=== PATIENT | female | born 1965 | race Caucasian/White ===

== ENCOUNTER → 2017-06-18 | Emergency (ER) | payer MEDICARE, OTHER ==
[~2017-06-18] VITALS: Ht 162.6 cm; Wt 72.6 kg
[~2017-06-18] MED LIST: BACLOFEN20 MG PO; CIPRO500 MG PO; CYCLOBENZAPRINE10 MG PO; DIAZEPAM5 MG PO; FLOVENT HFA12 GM INH; GLUCOSAMINE CH1 EACH PO; KEFLEX500 MG PO; MACROBID 100 M100 MG PO; NORCO 5-325 TA1 EACH PO; OMEPRAZOLE20 MG PO; PROMETHAZINE HC25 M1 PO; RANITIDINE HCL150 MG PO; TIZANIDINE HCL4 M1 PO; TYLENOL325 MG PO; VENTOLIN HFA18 GM INH
== END ==
LOC: ED 16:20
DX: R07.81 Pleurodynia (principal); M62.830 Muscle spasm of back; M99.03 Segmental and somatic dysfunction of lumbar region; F17.200 Nicotine dependence, unspecified, uncomplicated; Z90.710 Acquired absence of both cervix and uterus; Z90.49 Acquired absence of other specified parts of digestive tract; Z88.6 Allergy status to analgesic agent; Z88.7 Allergy status to serum and vaccine; Z88.0 Allergy status to penicillin; Z88.5 Allergy status to narcotic agent; Z91.040 Latex allergy status
CPT/HCPCS: 99283

== ENCOUNTER 2017-07-06 08:58 | Emergency (ER) | payer MEDICARE, OTHER ==
[~2017-07-06] VITALS: Ht 162.6 cm; Wt 80.3 kg
[~2017-07-06 08:58] MED LIST changes: -FLOVENT HFA12 GM INH; -RANITIDINE HCL150 MG PO; -VENTOLIN HFA18 GM INH
[2017-07-06] MEDS ORDERED: VENTOLIN HFA18 GM INH (09:13)
[2017-07-06] MEDS ORDERED: FLOVENT HFA12 GM INH (09:13)
[2017-07-06] MEDS ORDERED: RANITIDINE HCL150 MG PO (09:14)
[2017-07-06] MEDS ORDERED: CYCLOBENZAPRINE10 MG PO (10:57)
== END 2017-07-06 11:18 | disposition home or self-care (01) ==
LOC: ED 08:58
DX: G89.29 Other chronic pain (principal); M54.6 Pain in thoracic spine; F17.200 Nicotine dependence, unspecified, uncomplicated; Z90.710 Acquired absence of both cervix and uterus; Z90.49 Acquired absence of other specified parts of digestive tract; Z88.0 Allergy status to penicillin; Z88.7 Allergy status to serum and vaccine; Z88.5 Allergy status to narcotic agent; Z91.040 Latex allergy status; Z79.51 Long term (current) use of inhaled steroids
CPT/HCPCS: 72070; 80053; 85025; 99283

== ENCOUNTER 2017-10-18 13:15 | Emergency (ER) | payer MEDICARE, OTHER ==
[~2017-10-18] VITALS: Ht 162.6 cm; Wt 79.4 kg
[~2017-10-18 13:15] MED LIST changes: +FLOVENT HFA12 GM INH; +RANITIDINE HCL150 MG PO; +VENTOLIN HFA18 GM INH
== END 2017-10-18 13:51 | disposition home or self-care (01) ==
LOC: ED 13:15
DX: Z76.0 Encounter for issue of repeat prescription (principal); J45.909 Unspecified asthma, uncomplicated; F17.200 Nicotine dependence, unspecified, uncomplicated; Z90.710 Acquired absence of both cervix and uterus; Z90.49 Acquired absence of other specified parts of digestive tract; Z88.6 Allergy status to analgesic agent; Z91.09 Other allergy status, other than to drugs and biological substances; Z88.7 Allergy status to serum and vaccine; Z88.0 Allergy status to penicillin; Z88.5 Allergy status to narcotic agent; Z91.040 Latex allergy status; Z79.899 Other long term (current) drug therapy
CPT/HCPCS: 99283

== ENCOUNTER 2017-12-12 09:15 | Emergency (ER) | payer MEDICARE, OTHER ==
[~2017-12-12] VITALS: Ht 162.6 cm; Wt 77.1 kg
[2017-12-12] MEDS ORDERED: PROMETHAZINE HC25 M1 PO (11:23)
[2017-12-12] MEDS ORDERED: NORCO 5-325 TA1 EACH PO (11:23)
[2017-12-12] MEDS ORDERED: CIPRO500 MG PO (11:38)
== END 2017-12-12 11:40 | disposition home or self-care (01) ==
LOC: ED 09:15
DX: N39.0 Urinary tract infection, site not specified (principal); F17.200 Nicotine dependence, unspecified, uncomplicated; Z88.6 Allergy status to analgesic agent; Z88.8 Allergy status to other drugs, medicaments and biological substances; Z88.7 Allergy status to serum and vaccine; Z88.0 Allergy status to penicillin; Z91.040 Latex allergy status; Z88.5 Allergy status to narcotic agent
CPT/HCPCS: 80053; 81001; 85025; 87077; 87088; 87181; 87184; 96361; 96374; 96375; 99283; J1170; J2550; J7120

== ENCOUNTER 2018-03-04 12:58 | Emergency (ER) | payer MEDICARE, OTHER ==
[~2018-03-04] VITALS: Ht 162.6 cm; Wt 77.1 kg
[2018-03-04] MEDS ORDERED: BACTRIM DS TAB1 EACH PO (14:35)
--- NOTE | 2018-03-05 16:00 | EKG ---
[facility] [address] [facility] [place], [place] [address] Signed Sinus tachycardia Otherwise normal ECG No previous ECGs available Confirmed by OTONIEL CHAWLA MD ([id number]) on 03/05/2018 4:00:15 PM Electronically Signed By: OTONIEL CHAWLA MD 03/05/18 1600 PATIENT NAME: MATI SALGUERO Electrocardiogram DATE OF : 67 PHYSICIAN: OTONIEL CHAWLA MD REPORT #: [id number] REPORT IS CONFIDENTIAL AND NOT TO BE RELEASED WITHOUT AUTHORIZATION
== END 2018-03-04 14:43 | disposition home or self-care (01) ==
LOC: ED 12:58
DX: N39.0 Urinary tract infection, site not specified (principal); J45.909 Unspecified asthma, uncomplicated; F17.200 Nicotine dependence, unspecified, uncomplicated; Z88.6 Allergy status to analgesic agent; Z91.09 Other allergy status, other than to drugs and biological substances; Z88.7 Allergy status to serum and vaccine; Z88.0 Allergy status to penicillin; Z88.5 Allergy status to narcotic agent; Z91.040 Latex allergy status; Z79.899 Other long term (current) drug therapy; Z79.51 Long term (current) use of inhaled steroids
CPT/HCPCS: 80053; 81001; 84484; 85025; 87088; 93005; 93010; 96360; 99283; J7030

== ENCOUNTER 2018-05-07 04:20 | Emergency (ER) | payer MEDICARE, OTHER ==
[~2018-05-07] VITALS: Ht 162.6 cm; Wt 77.1 kg
[~2018-05-07 04:20] MED LIST changes: +BACTRIM DS TAB1 EACH PO
== END 2018-05-07 04:55 | disposition home or self-care (01) ==
LOC: ED 04:20
PROC: 0T9B70Z Drainage of Bladder with Drainage Device, Via Natural or Artificial Opening (ICD-10-PCS; principal; 2018-05-07)
DX: T83.091A Other mechanical complication of indwelling urethral catheter, initial encounter (principal); Z88.6 Allergy status to analgesic agent; Z88.8 Allergy status to other drugs, medicaments and biological substances; Z88.0 Allergy status to penicillin; Z91.040 Latex allergy status; Z88.7 Allergy status to serum and vaccine; Z79.899 Other long term (current) drug therapy; Z90.5 Acquired absence of kidney; Z93.6 Other artificial openings of urinary tract status
CPT/HCPCS: 51701; 99283

== ENCOUNTER 2019-01-09 15:29 | Emergency (ER) | payer MEDICARE, OTHER ==
[~2019-01-09] VITALS: Ht 162.6 cm; Wt 77.1 kg
--- OUTSIDE RECORDS SUMMARY | ~2019-01-09 | XMS | Clinical Summary ---
Demographics + + + | Address | [address] | | | [address] | | | [place] [address] | + + + | Home Phone | | + + + | Preferred Language | Unknown | + + + | Marital Status | | + + + | Yarsanism Affiliation | Unknown | + + + | Race | Unknown | + + + | Ethnic Group | Unknown | + + + Author + + + | Author | [email or web address] | + + + | Organization | [facility] [employer] [facility] | + + + | Address | Unknown | + + + | Phone | Unavailable | + + + Support + + +---------+ + | Name | Relationship | Address | Phone | + + +---------+ + | Kathrine Salazar | ECON | Unknown | | + + +---------+ + Care Team Providers + +------+ + | Care Machine Shop Repair Technician Name | Role | Phone [...]
--- OUTSIDE RECORDS SUMMARY | ~2019-01-09 | XMS | Clinical Summary ---
Demographics + + + | Address | [address] | | | [place] [address] | + + + | Home Phone | | + + + | Preferred Language | Unknown | + + + | Marital Status | | + + + | Latter-Day Affiliation | Unknown | + + + | Race | Unknown | + + + | Ethnic Group | Unknown | + + + Author + + + | Author | [facility] | | | and [place] | + + + | Organization | [facility] | | | and [...] #3 | | | | | , [address] | | + + + + + Care Team Providers + +------+ + | Care Clock And Watch Hands Dipper Name | Role | Phone | + +------+ + | Francine Sanford LEAD SOLUTIONS ARCHITECT | PP | | + +------+ + [...] | + + + + + + Current Medications + + +---------+---------+------+------+-------+ | Prescription | Sig. | Disp. | Refills | Star | End | Statu | | | | | | t | Date | s | | | | | | Date | | | + + +---------+---------+------+------+-------+ | raNITIdine | Take 150 mg by mouth | | | | | Activ | | (ZANTAC) 150 MG | nightly. | | | | | e | | capsule | | | | | | | + + +---------+---------+------+------+-------+ | fluticasone | Inhale 2 puffs into | | | | | Activ | | (FLOVENT HFA) 44 | the lungs 2 times | | | | | e | | mcg/puff inhaler | daily. | | | | | | + + +---------+---------+------+------+-------+ | diphenhydrAMINE | Take 1 pill 1 hour | 1 | 2 | 04/2 | | Activ | | (BENADRYL) 25 MG | before CT scan | capsule | | 0/20 | | e | | capsule | | | | 18 | | | + + +---------+---------+------+------+-------+ | albuterol | Inhale 2 puffs into | | | | | Activ | | (VENTOLIN HFA) 90 | the lungs every 6 | | | | | e | | mcg/puff inhaler | hours as needed for | | | | | | | | Wheezing. | | | | | | + + +---------+---------+------+------+-------+ | Incontinence | 14 welsh urinary | 210 | 11 | 07/1 [...] | | | | | + + +---------+---------+------+------+-------+ Active Problems + + + | Problem [...] on file | | + + + Last Filed Vital Signs + [...] + | Respiratory Rate | 18 | 05/18/20181011 PDT | + + + + | Oxygen Saturation | 91% | 04/14/20180 PDT | + + + + | Inhaled Oxygen | - | - | | Concentration | | | + + + + | Weight | 80.7 kg (177 lb 14.6 | 05/18/20181011 PDT | | | oz) | | + + + + | Height | 162.6 cm (5' 4.02") | 05/18/20181011 PDT | + + + + | Body Mass Index | 30.52 | 05/18/2018 1012 PDT | + + + + Plan [...] | + + + + + | BREAST CANCER | | | | | SCREENING (MAMM Q2 | 6 | | | | YEARS 50-74) | | | | + + [...] | | | | | (#1) | 8 | | | + + + + + Results Not on filefrom Last 3 Months Insurance + +--------+ +--------+ +---------+ | Payer | Benefi | Subscriber | Type | Phone | Address | | | t Plan | ID | | | | | | / | | | | | | | Group | | | | | + +--------+ +--------+ +---------+ | MEDICARE | MEDICA | [id number] | Medica | [phone] | | | RE | | re | [phone] | | | | PART A | | | | | | | AND B | | | | | + +--------+ +--------+ +---------+ | MODA [employer] PLAN | MODA | [id number] | Medica | [phone] | | | MEDICAID HMO | HEALTH | | id | [id number] | | | | MDCD | | | | | | | HMO [place] | | | | | + +--------+ +--------+ +---------+ + +--------+ +--------+ + + | Guarantor Name | Accoun | Relation to | Date | Phone | Billing Address | | | t Type | Patient | of | | | | | | | | | | + +--------+ +--------+ + + | MATI SALGUERO | Person | Self [birth year] Home: | [address] | | [place] | al/Fam | | 1965 | [phone] | [address] | | | [place] | | | [phone] | [place] | | | | | | | [address] | + +--------+ +--------+ + +
--- OUTSIDE RECORDS SUMMARY | ~2019-01-09 | XMS | Clinical Summary ---
Demographics + + + | Address | [address] | | | [place] [address] | + + + | Home Phone | | + + + | Preferred Language | Unknown | + + + | Marital Status | | + + + | Baptist Affiliation | Unknown | + + + | Race | Unknown | + + + | Ethnic Group | Unknown | + + + Author + + + | Author | [facility] | | | and [place] | + + + | Organization | [facility] | | | and [...] #3 | | | | | , [address] | | + + + + + Care Team Providers + +------+ + | Care Dye Expert Name | Role | Phone | + +------+ + | Francine Sanford METAL DOOR ASSEMBLER | PP | | + +------+ + [...] + + +---------+---------+------+------+-------+ | Incontinence | 14 maltese urinary | [...] +--------+ +---------+ | MEDICARE | MEDICA | [id number] | Medica | [phone] | | | | RE | | re | [phone] | | | | PART A | | | | | | | AND B | | | | | + +--------+ +--------+ +---------+ | MODA HE[employer] PLAN | MODA | [id number] | Medica | [phone] | | | [...] | | | | | | | [address] | + +--------+ +--------+ + +
--- OUTSIDE RECORDS SUMMARY | ~2019-01-09 | XMS | Clinical Summary ---
Demographics + + + | Address | [address] | | | [address] | | | [place] [address] | + + + | Home Phone | | + + + | Preferred Language | Unknown | + + + | Marital Status | | + + + | Yarsanism Affiliation | Unknown | + + + | Race | Unknown | + + + | Ethnic Group | Unknown | + + + Author + + + | Author | [facility] | + + + | Organization | [facility] [facility] | + + + | Address | Unknown | + + + | Phone | Unavailable | + + + Support + + +---------+ + | Name | Relationship | Address | Phone | + + +---------+ + | Kathrine Salazar | ECON | Unknown | | + + +---------+ + Care Team Providers + +------+ + | Care Landfill Gas Collection System Operator Name | Role | Phone | [...]
[2019-01-09] MEDS ORDERED: PROMETHAZINE HC25 M1 PO (19:20)
== END 2019-01-09 19:33 | disposition home or self-care (01) ==
LOC: ED 15:29
DX: R10.9 Unspecified abdominal pain (principal); R11.10 Vomiting, unspecified; R10.812 Left upper quadrant abdominal tenderness; R10.811 Right upper quadrant abdominal tenderness; R19.7 Diarrhea, unspecified; J45.909 Unspecified asthma, uncomplicated; Z87.891 Personal history of nicotine dependence; Z90.710 Acquired absence of both cervix and uterus; Z88.6 Allergy status to analgesic agent; Z91.048 Other nonmedicinal substance allergy status; Z91.040 Latex allergy status; Z88.0 Allergy status to penicillin; Z88.5 Allergy status to narcotic agent; Z79.899 Other long term (current) drug therapy
CPT/HCPCS: 74176; 80053; 81001; 83605; 85025; 96361; 96374; 96375; 99284-25; J2270; J2550; J7030

== ENCOUNTER 2019-03-29 21:03 | Inpatient (IN) | payer MEDICARE, OTHER ==
[~2019-03-29] VITALS: Ht 162.6 cm; Wt 86.9 kg
--- OUTSIDE RECORDS SUMMARY | ~2019-03-29 | XMS | Clinical Summary ---
Demographics + + + | Address | [address] | | | [address] | | | [place] [address] | + + + | Home Phone | | + + + | Preferred Language | Unknown | + + + | Marital Status | | + + + | Episcopalian Affiliation | Unknown | + + + | Race | Unknown | + + + | Ethnic Group | Unknown | + + + Author + + + | Author | [facility] | + + + | Organization | [facility] | + + + | Address | Unknown | + + + | Phone | Unavailable | + + + Support + + +---------+ + | Name | Relationship | Address | Phone | + + +---------+ + | Kathrine Salazar | ECON | Unknown | | + + +---------+ + Care Team Providers + +------+ + | Care Courier Name | Role | Phone | + +------+ + PP | Unavailable | + +------+ + Allergies Not on File Current Medications Not on file Active Problems Not on file Social History + +-------+ +--------+------+ | Tobacco [...] on file | | + + + Plan of Treatment Not on file Results Not on filefrom Last 3 Months"
--- OUTSIDE RECORDS SUMMARY | ~2019-03-29 | XMS | Clinical Summary ---
Demographics + + + | Address | [address] | | | [address] | | | [place] [address] | + + + | Home Phone | | + + + | Preferred Language | Unknown | + + + | Marital Status | | + + + | Caodaism Affiliation | Unknown | + + + | Race | Unknown | + + + | Ethnic Group | Unknown | + + + Author + + + | Author | [facility] [employer] [facility] | + + + | Organization | [facility] [employer] [facility] | + + + | Address | Unknown | + + + | Phone | Unavailable | + + + Support + + +---------+ + | Name | Relationship | Address | Phone | + + +---------+ + | Kathrine Salazar | ECON | Unknown | | + + +---------+ + Care Team Providers + +------+ + | Care Inspector Final Assembly Conveyor Line Name | Role | Phone | + [...]
--- OUTSIDE RECORDS SUMMARY | ~2019-03-29 | XMS | Clinical Summary ---
Demographics + + + | Address | [address] | | | [place] [address] | + + + | Home Phone | | + + + | Preferred Language | Unknown | + + + | Marital Status | | + + + | Mormon Affiliation | Unknown | + + + | Race | Unknown | + + + | Ethnic Group | Unknown | + + + Author + + + | Author | [facility] | | | and [place] | + + + | Organization | [facility] | | | and [place] | + + + | Address | Unknown | + + + | Phone | Unavailable | + + + Support + + + + + | Name | Relationship | Address | Phone | + + + + + | Darisu Fields | ECON | [address] | | | | | , [address] | | + + + + + Care Team Providers + +------+ + | Care Overhauler Bus Truck Name | Role | Phone | + +------+ + | Francine Sanford RECONCILIATION SPECIALIST | PP | | + +------+ + Allergies + + + + + + | Active Allergy | Reactions | Severity | Noted | Comments | | | | | Date | | + + + + + + | Codeine Sulfate | Itching, Nausea And | Medium | | | | | Vomiting | | | | + + + + + + | Iodinated Diagnostic | Itching | Medium | 05/01/20 | IV Contrast | | Agents | | | 10 | | + + + + + + | Latex | Rash | Low | 05/01/20 | | | | | | 10 | | + + + + + + | Nsaids | Nausea And Vomiting | Medium | 05/01/20 | | | | | | 10 | | + + + + + + | Penicillins | Nausea And Vomiting | Medium | | | + + + + + + Medications + + + +---------+------+------+-------+ | Medication | Sig | Dispensed | Refills | Star | End | Statu | | | | | | t | Date | s | | | | | | Date | | | + + + +---------+------+------+-------+ | raNITIdine | Take 150 mg by mouth | | 0 | | | Activ | | (ZANTAC) 150 MG | nightly. | | | | | e | | capsule | | | | | | | + + + +---------+------+------+-------+ | fluticasone | Inhale 2 puffs into | | 0 | | | Activ | | (FLOVENT HFA) 44 | the lungs 2 times | | | | | e | | mcg/puff inhaler | daily. | | | | | | + + + +---------+------+------+-------+ | diphenhydrAMINE | Take 1 pill 1 hour | 1 | 2 | 04/2 | | Activ | | (BENADRYL) 25 MG | before CT scan | capsule | | 0/20 | | e | | capsule | | | | 18 | | | + + + +---------+------+------+-------+ | albuterol | Inhale 2 puffs into | | 0 | | | Activ | | (VENTOLIN HFA) 90 | the lungs every 6 | | | | | e | | mcg/puff inhaler | hours as needed for | | | | | | | | Wheezing. | | | | | | + + + +---------+------+------+-------+ | Incontinence | 14 mauritian urinary | 210 | 11 | 07/1 | | Activ | | Supplies | catheters. | each | | 2/20 | | e | | MISCIndications: | Catheterize 7 times | | | 18 | | | | Bladder extrophy | daily. Length of | | | | | | | | need: Lifetime. | | | | | | | | Diagnosis: Bladder | | | | | | | | extrophy Q64.10. 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 | + + + | URINARY TRACT INFECTION | | + + + | FIBROMYALGIA | | + + + | HYPERTENSION | | + + + | CHRONIC RIGHT HYDRONEPHROSIS | | + + + | CHRONIC MALFUNCTION OF THE RIGHT KIDNEY | | + + + + + | Overview: ICD-10 Record update | + + + +---+ | POSSIBLE LEFT RENAL CALCULUS | | + +---+ | RIGHT BACK PAIN, CHRONIC | | + +---+ Family History + + +------+ + | Medical History | Relation | Name | Comments | + + +------+ + | Heart disease | Maternal | | | | | Grandfath | | | | | er | | | + + +------+ + | Prostate cancer | Maternal | | | | | Grandfath | | | | | er | | | + + +------+ + | Cancer | Maternal | | | | | Grandmoth | | | | | er | | | + + +------+ + | Fibromyalgia | Mother | | | + + +------+ + | Heart disease | Mother | | | + + +------+ + + +------+ + + | Relation | Name | Status | Comments | + +------+ + + | Father | | Alive | | + +------+ + + | Maternal Grandfather | | | | + +------+ + + | Maternal Grandmother | | | | + +------+ + + | Mother | | | | + +------+ + + Social History + + + [...] + +---------+ + | Alcohol Use | Drinks/We | oz/Week | Comments | | | ek | | | + + +---------+ + | No [...] Filed Vital Signs + + + + | Vital Sign | Reading | Time Taken | + + + + | Blood Pressure | 128/80 | 05/18/20182 PDT | + + + + | Pulse | 104 | 05/18/2018 1012 PDT | + + + + | Temperature | 36.4 C (97.5 F) | 04/14/2018 0835 PDT | + + + + | Respiratory Rate | 18 | 05/18/20182 PDT | + + + + | Oxygen Saturation | 91% | 04/14/2018 1010 PDT | + + + + | Inhaled Oxygen | - | - | | Concentration | | | + + + + | Weight | 80.7 kg (177 lb 14.6 | 05/18/20181011 PDT | | | oz) | | + + + + | Height | 162.6 cm (5' 4.02") | 05/18/20182 PDT | + + + + | Body Mass Index | 30.52 | 05/18/20182 PDT | + + + + Plan of Treatment + + + + + | Health Maintenance | Due Date | Last Done | Comments | + + + + + | Vaccine: | | | | | Dtap/Tdap/Td (1 - | 5 | | | | Tdap) | | | | + + + + + | Cervical Cancer | | | | | Screening (Pap) | 6 | | | + + + + + | Adult Annual | | | | | Wellness Visit | 5 | | | + + + + + | Breast Cancer | | | | | Screening (Ages | 6 | | | | 50-74) | | | | + + + + + | Colorectal Cancer | | | | | Screening | 6 | | | | (Colonoscopy) | | | | + + + + + | Vaccine: Zoster (1 | | | | | of 2) | 6 | | | + + + + + | Vaccine: Influenza | | | | | (Season Ended) | 9 | | | + + + + + Results Not on filefrom Last 3 Months Insurance + +--------+ +--------+ +---------+--------+ | Payer | Benefi | Subscriber | Effect | Phone | Address | Type | | | t Plan | ID | blaise | | | | | | / | | Dates | | | | | | Group | | | | | | + +--------+ +--------+ +---------+--------+ | MEDICARE | MEDICA | [id number] | | [phone] | | Medica | | | RE | | 010-Pr | 5 | | re | | | PART A | | esent | | | | | | AND B | | | | | | + +--------+ +--------+ +---------+--------+ | MODA [employer] PLAN | MODA | [id number] | | [phone] | | Medica | | MEDICAID HMO | HEALTH | | 018-Pr | 1 | | id | | | MDCD | | esent | | | | | | HMO OR | | | | | | + +--------+ +--------+ +---------+--------+ + +--------+ +--------+ + + | Guarantor Name | Accoun | Relation to | Date | Phone | Billing Address | | | t Type | Patient | of | | | | | | | | | | + +--------+ +--------+ + + | Samreen Zaragoza | Person | Self | [birth year] | [address] | | [place] | al/Fam | | 1965 | [phone] | [address] | | | [place] | | | [address] (Home) | [place] | | | | | | | [address] | + +--------+ +--------+ + + Advance Directives Patient has advance care planning documents, and code status on file. For more information, please contact:[facility] [place] [address] + + + + + | Code Status | Date | Date | Comments | | | Activated | Inactivated | | + + + + + | Full Code | 04/09/2018 | 04/14/2018 | | | | 16:36 | 14:35 | | + + + + +
--- OUTSIDE RECORDS SUMMARY | ~2019-03-29 | XMS | Clinical Summary ---
Demographics + + + | Address | [address] | | | [place] [address] | + + + | Home Phone | | + + + | Preferred Language | Unknown | + + + | Marital Status | | + + + | Sabianism Affiliation | Unknown | + + + | Race | Unknown | + + + | Ethnic Group | Unknown | + + + Author + + + | Author | [facility] | | | and [place] | + + + | Organization | [facility] | | | and [place] | + + + | Address | Unknown | + + + | Phone | Unavailable | + + + Support + + + + + | Name | Relationship | Address | Phone | + + + + + | Darius Fields | ECON | [address] | | | | | , [address] | | + + + + + Care Team Providers + +------+ + | Care Seed Production Field Supervisor Name | Role | Phone | + +------+ + | Francine Sanford AUDIO PRODUCTION ENGINEER | PP | | + +------+ + [...] + + +---------+------+------+-------+ | Incontinence | 14 cymraes urinary | 210 | 11 | 07/1 [...] +--------+ +---------+--------+ | MEDICARE | MEDICA | [id number] | | [phone] | | Medica | | | RE | | 010-Pr | 5 | | re | | | PART A | | esent | | | | | | AND B | | | | | | + +--------+ +--------+ +---------+--------+ | MODA [employer] PLAN | MODA | [id number] | | [phone] | | Medica | [...] | | | 9 (Home) | [place] | | | | | | | [address] | + +--------+ +--------+ + + Advance Directives Patient has advance care planning documents, and code status on file. For more information, please contact:[facility] [place] [address] + + + + + | Code Status | Date | Date | Comments | | | Activated | Inactivated | | + + + + + | Full Code | 04/09/2018 | 04/14/2018 | | | | 16:36 | 14:35 | | + + + + +
--- OUTSIDE RECORDS SUMMARY | ~2019-03-29 | XMS | Clinical Summary ---
Demographics + + + | Address | [address] | | | [address] | | | [place] [address] | + + + | Home Phone | | + + + | Preferred Language | Unknown | + + + | Marital Status | | + + + | Scientologist Affiliation | Unknown | + + + | Race | Unknown | + + + | Ethnic Group | Unknown | + + + Author + + + | Author | [facility] | + + + | Organization | [facility] [employer] [facility] | + + + | Address | Unknown | + + + | Phone | Unavailable | + + + Support + + +---------+ + | Name | Relationship | Address | Phone | + + +---------+ + | Kathrine Slaazar | ECON | Unknown | | + + +---------+ + Care Team Providers + +------+ + | Care Trench Digger Helper Name | Role | Phone | [...]
--- OUTSIDE RECORDS SUMMARY | ~2019-03-29 | XMS | Clinical Summary ---
Demographics + + + | Address | [address] | | | [place] [address] | + + + | Home Phone | | + + + | Preferred Language | Unknown | + + + | Marital Status | | + + + | Congregation Affiliation | Unknown | + + + | Race | Unknown | + + + | Ethnic Group | Unknown | + + + Author + + + | Author | [facility] | | | and [place] | + + + | Organization | [facility] | | | and [place] | + + + | Address | Unknown | + + + | Phone | Unavailable | + + + Support + + + + + | Name | Relationship | Address | Phone | + + + + + | Darius Fields | ECON | [address] | | | | | , [address] | | + + + + + Care Team Providers + +------+ + | Care Skein Dyer Name | Role | Phone | + +------+ + | Francine Sanford PHP ENGINEER | PP | | + +------+ [...] + + +---------+------+------+-------+ | Incontinence | 14 martiniquais urinary | 210 | 11 | 07/1 [...] +--------+ +---------+--------+ | MEDICARE | MEDICA | [id number] | | [phone] | | Medica | | | RE | | 010-Pr | 5 | | re | | | PART A | | esent | | | | | | AND B | | | | | | + +--------+ +--------+ +---------+--------+ | [employer]AN | MODA | [id number] | | [phone] | | Medica | [...] | | | | | | | [address] | + +--------+ +--------+ + + Advance Directives Patient has advance care planning documents, and code status on file. For more information, please contact:[facility] [place] [address] + + + + + | Code Status | Date | Date | Comments | | | Activated | Inactivated | | + + + + + | Full Code | 04/09/2018 | 04/14/2018 | | | | 16:36 | 14:35 | | + + + + +
[2019-03-29] MEDS ORDERED: DILT-XR120 MG PO (21:21)
--- NOTE | 2019-03-30 02:25 | NUR ---
PATIENT ARRIVED TO THE FLOOR VIA STRETCHER. PATIENT WAS ABLE TO AMBULATE WITH NO ASSISTANCE OFF OF THE STRETCHER TO THE RESTROOM. PATIENT WAS ABLE TO SELF CATH AND VOID FROM UROSTOMY. PATIENT HAD X2 EPISODES OF VOMITING INTO TOILET THAT WHERE UNMEASURED. PATIENT IS NOW IN BED RESTING. NG TUBE PLACED WITH NO ISSUES IN LEFT SAMUEL. PATIENT TOLERATED NG PLACEMENT WELL. NG IS NOT HOOKED UP AT THIS TIME PENDING X-RAY. IMAGING IN ROOM COMPLETING X-RAY. PATIENT OREINTED TO FLOOR, ROOM, AND CALL LIGHT. PATIENT DENIES ANY FURTHER NEEDS. CALL LIGHT IN REACH.
--- NOTE | 2019-03-30 02:51 | NUR ---
NG PLACEMENT COMFORMED BY RADIOLOGIST. PATIENTS PLACED ON LWIS. PATIENT IS RESTING IN BED WITH EYES CLOSED, RR 17. CALL LIGHT IN REACH.
--- NOTE | 2019-03-30 04:00 | NUR ---
PATIENT IS RESTING IN BED WITH EYES CLOSED, RR 17. NG REMAINS ON LWIS. CALL LIGHT IN REACH.
--- NOTE | 2019-03-30 05:13 | NUR ---
PATIENT RESTED WELL AFTER ARRIVING TO THE FLOOR. PATIENT IS NPO AT THIS TIME. PATIENT HAS NG PLACED INTO LEFT SAMUEL AND IS ON LWIS. PATIENT IS A SBA. PATIENT HAS UROSTOOMY AND SELF CATHS PRN FROM UROSTOMY. PATIENT HAS IV FLUIDS INFUSING. PATIETN IS AAOX3. PATIENT HAS LATEX ALLERGIES.
--- NOTE | 2019-03-30 05:31 | NUR ---
PATIENTS VITALS TAKEN AND RECORDED. PATIENTS INTAKE AND OUPUT RECORDED. MORNING MEDICATION GIVEN PER ORDER. PATIENTS NG REMAINS PATENT AND CONNECTED TO LWIS. PATIENTS IV INFUSING PER ORDER. PATIENT DENIES ANY PAIN OR NAUSEA. NO NEEDS NOTED. CALL LIGHT IN REACH.
--- NOTE | 2019-03-30 06:16 | NUR ---
PATIENT PROVIDED WITH SUPPLIES TO SELF CATH. PATIENT WAS ABLE TO CATH WITH NO ISSUES. PATIENT WAS ABLE TO AMBULATE WITH NO ASSISTANCE. PATIENT IS BACK IN BED RESTING. IV INFUSING PER ORDER. NG TO LWIS. PATIENT RATES PAIN AT A 9/10. PATIENT GIVEN PRN PAIN MEDICATION PER ORDER. PATIENT DENIES ANY NAUSEA AT THIS TIME. NO FURTHER NEEDS NOTED. CALL LIGHT IN REACH.
--- NOTE | 2019-03-30 07:04 | NUR ---
RECIEVED BEDSIDE REPORT FROM OLIVIA GIMENEZ. PT IN BED, NGT TO LIWS. PERSONAL SUPPLIES AND CALL LIGHT IN REACH. NO C/O NAUSEA.
--- NOTE | 2019-03-30 09:56 | NUR ---
PATIENT AMBULATED IN HALLWAY 1 LAP EARLIER. PATIENT NOW IN BED RESTING WITH EYES CLOSED. PATIENT DID NOT WANT TO TAKE SHOWER, BATH WIPES GIVEN. CALL LIGHT IN REACH. NO FURTHER NEEDS AT THIS TIME.
--- NOTE | 2019-03-30 10:17 | NUR ---
PT C/O 10/10 ABDOMINAL PAIN, GAVE DILAUDID 0.6 MG IV PRN. ALSO C/O NAUSEA, GAVE PHENERGAN 12.5 MG IV PRN. NO EMESIS. NGT PUTTING OUT VERY SCANT AMOUNT.
--- NOTE | 2019-03-30 10:29 | NUR ---
ATTEMPTED TO AIR BOLUS THROUGH NGT, BOLUSED 15 ML, BUT THEN UNABLE TO PULL BACK ANYTHING. BOLUSED 5 ML WATER, UNABLE TO PULL BACK ANYTHING. PULLED NGT OUT BY APROXIMATELY 2.5 INCHES. NGT NOW DRAINING WELL, NO ISSUE PULLING BACK WITH SYRINGE.
--- NOTE | 2019-03-30 11:37 | NUR ---
PT IN BED, REPORTS PAIN LEVEL IS DOWN TO 3/10, TOLERABLE. ALEXANDR Smith, DRY SANDER IN SPEAKING WITH PT.
--- NOTE | 2019-03-30 11:53 | NUR ---
PT AMBULATED IN HALLS, AROUND LARGE LOOP X 1, TOLERATED WELL. PT THEN BACK TO BED. SCDs APPLIED, INSENTIVE SPIROMETER GIVEN TO PT. PROVIDED EDCUATION REGARDING INSENTIVE SPIROMETER USE, PT VERBALIZED UNDERSTANDING. GAVE PT VTE PREVENTION EDUCATON, EDUCATION REGARDING SCDs, PT VERBALIZED UNDERSTANDING. PERSONAL SUPPLIES AND CALL LIGHT IN REACH. PT'S NGT TO LOW INTERMITANT WALL SUCTION. PT DENIED NAUSEA.
--- NOTE | 2019-03-30 12:55 | NUR ---
PT SLEEPING SOUNDLY, AROUSED TO VERBAL STIMULI. ORDERED DILTIAZEM GIVEN. PT DENIED NAUSEA, DENIED PAIN. PERSONAL SUPPLIES AND CALL LIGHT IN REACH.
--- NOTE | 2019-03-30 13:53 | NUR ---
PT AMBULATED IN BERMEO AROUND LARGE LOOP X 1. TOLERATED WELL. IS NOW SITTING UP IN RECLINER. NGT TO LIWS, MODERATE AMOUNT CHUNCKY BROWN DRAINAGE COMING OUT INTO COLLECTION CONTAINER. PERSONAL SUPPLIES AND CALL LIGHT IN REACH. DENIES NAUSEA. WARM BLANKET PROVIDED.
--- NOTE | 2019-03-30 14:02 | NUR ---
PATIENT SITTING IN CHAIR WATCHING TV. CALL LIGHT IN REACH. NO FURTHER NEEDS AT THIS TIME.
--- NOTE | 2019-03-30 14:34 | CONS ---
[facility] [address], [place] [address] Signed DATE OF CONSULTATION: 03/30/2019 CHIEF COMPLAINT: Left-sided abdominal pain. HISTORY OF PRESENT ILLNESS: Mati is a 54-year-old female who was born with exstrophy of the bladder. She required three surgeries by the age of 4 on her bladder and her kidneys. In the end, she had an open cholecystectomy in 2010 up in [place], [place]. Then in 2017, they used the same incision to do an open right nephrectomy. She had her continent urostomy reconstructed in 2004 at [facility]. She has to self cath the urostomy. There was also some mention about hysterectomy. She said the bladder is long gone at this point. She has intermittent left-sided abdominal pain. Finally last night, it was so bad, she could hardly set up in bed. She finally made it into the emergency room. A CT scan showed some mildly dilated loops of small bowel on the left side of the abdomen about 33 mm. There is a question whether or not there is a transition point distally. She was also found to have colonization of her urine. The ER doctor wanted to give her some Levaquin and Flagyl. I was asked to admit her as a general surgeon on-call. An NG tube was placed and she does have bilious gastric fluid, which is moderately turbid as well. Overall, she says she feels better and the crampy pain seems to have improved. She said she had quite a bit of gas yesterday, but none this morning. PAST MEDICAL HISTORY: Exstrophy of the bladder, left, and asthma, obesity, hypertension, acid reflux. PAST SURGICAL HISTORY: Hysterectomy, continent urostomy, three bladder and kidney surgeries by age 4, right great toe surgery and open cholecystectomy in 2010, [place], [place], an open right nephrectomy in 2017, [place], [place], to her right subcostal incision, and reconstruction of her urostomy in 2004 at [facility] [place]. SOCIAL HISTORY: She quit smoking, but she likes little marijuana. She does not drink. Her brother is Darius Fields. Her female health nurse practitioner is Francine Culver, and they prefer [facility]. She is on disability. FAMILY HISTORY: Maternal grandfather and dad had heart disease and she thinks her mom had a weak heart and not sure why. REVIEW OF SYSTEMS: She had 10 systems reviewed and we were able to gather some of the details for the above Electronically Signed By: MAGEN ZEPEDA MD 03/30/19 1434 PATIENT NAME: MATI SALGUERO CONSULTATION DATE OF : 67 REPORT #: [id number] PHYSICIAN: MAGEN ZEPEDA MD PCP: FRANCINE CULVER REPORT IS CONFIDENTIAL AND NOT TO BE RELEASED WITHOUT AUTHORIZATION [address] [address] Signed history. ALLERGIES: NSAIDs, penicillin, iodine, codeine, influenza, and latex. MEDICATIONS: Flovent, albuterol, Zantac, and diltiazem. PHYSICAL EXAMINATION: VITAL SIGNS: Blood pressure is 155/77, heart rate 117, respiratory rate 18, temperature is 97.8. She is 93% on room air. She is 5 feet 4 inches and 90 kg. GENERAL: Mati is a 54-year-old female, sitting on the edge of her bed with her Holliday stand. I believe it is her brother that is in the room with her. She does not appear systemically ill or toxic. The NG tube is in place. Our nurses had pulled back a couple inches and gotten out quite a bit of bilious turbid fluid. It is probably a liter, maybe little more. She looks older than her stated age. LUNGS: Generally clear to auscultation bilaterally. HEART: Tachycardic without murmur. ABDOMEN: Obese but soft. She has multiple surgical scars including scars from her retention sutures. Her current urostomy is just to the right of the midline about the mid abdomen. No local signs or symptoms of infection. ABDOMEN: Generally soft and nontender. Certainly, no peritonitis. LABORATORY DATA: Her white blood cell count 11.9, hemoglobin 15, neutrophils 72, BUN 17, creatinine 0.9. Liver function tests are negative. Albumin is 4.1. The urine sample from the urostomy showed some bacteria, which is common. RADIOGRAPHIC STUDIES: CT scan of the abdomen and pelvis is reviewed. She does have some prominent small bowel loops in the left side about 33 mm in diameter. There may be a transition point distally. ASSESSMENT AND PLAN: Mati is a 54-year-old lady who presents with multiple previous abdominal surgeries as described above. She likely has a small bowel obstruction in the left side of her abdomen. At this point, she is admitted on IV fluids and on an NG tube. We will have our Internal Medicine Service see her as well for some of her medical issues. She certainly has a complex history and we have reviewed that together in detail. She has expressed understanding and agrees above plan. Electronically Signed By: MAGEN ZEPEDA MD 03/30/19 1434 PATIENT NAME: MATI SALGUERO CONSULTATION DATE OF : 67 REPORT #: [id number] PHYSICIAN: MAGEN ZEPEDA MD PCP: FRANCINE CULVER REPORT IS CONFIDENTIAL AND NOT TO BE RELEASED WITHOUT AUTHORIZATION [place] [id number] [facility] [place], [place] [address] Signed Magen Zepeda MD [facility] /[id number] cc: MD Francine Alejandro WHNP Copies: MAGEN ZEPEDA MD, KATIE C WHNP ~ Electronically Signed By: MAGEN ZEPEDA MD 03/30/19 1434 PATIENT NAME: MATI SALGUERO CONSULTATION DATE OF : 67 REPORT #: [id number] PHYSICIAN: MAGEN ZEPEDA MD PCP: FRANCINE CULVER REPORT IS CONFIDENTIAL AND NOT TO BE RELEASED WITHOUT AUTHORIZATION
--- NOTE | 2019-03-30 14:59 | NUR ---
B/P HIGH, RN NOTIFIED.
--- NOTE | 2019-03-30 15:05 | NUR ---
PT'S BP 154/107, PULSE 127. NOTIFIED DR. BAEZ, WHO STATED THAT HE WOULD DISCUSS THIS WITH DR. MELENDEZ, AND THEY WOULD PUT ORDERS IN. NOTIFIED DR. MELO OF THIS VIA TELEPHONE.
--- NOTE | 2019-03-30 16:09 | NUR ---
PT C/O 08/05 ABDOMINAL PAIN. GAVE DILAUDID 1 MG IV PRN. PT SITTING UP IN RECLINER. BROTHER IN ROOM WITH PT. NGT TO MICHELLE, BROWN DRAINAGE COMING OUT INTO TUBE AND COLLECTION CHAMBER. PERSONAL SUPPLIES AND CALL LIGHT IN REACH.
--- NOTE | 2019-03-30 17:30 | NUR ---
PT'S BP NOW WNL, AND HR 102. PT DENIES PAIN AT THIS TIME. NO C/O NAUSEA. NGT WORKING WELL.
--- NOTE | 2019-03-30 17:32 | NUR ---
CALLED DR. MELO, UPDATED HIM ON ELEVATED HR AND BP, D/C'D CARDIAZEM, STARTED LABETALOL, AND IMPROVED HR AND BP. DR. MELO VERBALIZED ACKNOWLEDGEMENT OF THIS.
--- NOTE | 2019-03-30 17:41 | NUR ---
PT ALERT, ORIENTED X 4. PT HAS HAD SOME PAIN TO ABDOMEN, RESOLVED WELL WITH PRN DILAUDID. ALSO HAD NAUSEA AND SCANT EMESIS THIS AM, NGT NOT DRAINING, PULLED OUT SEVERAL INCHES, AND IS NOW DRAINING WELL, WITH NO FURTHER EPISODES OF EMESIS. PT HAS AMBULATED IN HALLS X 3 THUS FAR THIS SHIFT WITH STANDBY ASSIST. STEADY ON FEET, TOLERATED AMBULATION WELL. BOWEL TONES HYPOACTIVE, PT REPORTED PASSING FLATUS THIS SHIFT. NO BM. AT LAST MEASUREMENT PT HAD HAD 375 MG DARK BROWN WITH SOME CHUNKS DRAINAGE OUT NGT. NGT TO LOW INTERMITANT WALL SUCTION. PT HAS UROSTOMY SITE, SHE IS CONTINENT, SELF CATHS PRN. URINE HAS BEEN CHERELLE IN COLOR, QUANTITY SUFFICIENT OUT. PT HAD ELEVATED BP AND HR, CARDIAZEM D/C'D, LABETALOL STARTED WITH GOOD EFFECT.
--- NOTE | 2019-03-30 18:42 | NUR ---
PATIENT UP TO BATHROOM AND BACK TO CHAIR, IND. CALL LIGHT IN REACH. WARM BLANKET GIVEN. NO FURTHER NEEDS AT THIS TIME.
--- NOTE | 2019-03-30 19:20 | NUR ---
RECEIVED REPORT FROM DAY SHIFT RN. PATIENT IS RESTING IN RECLINER. PATIENT DENIES ANY PAIN OR NAUSEA. NO NEEDS NOTED. CALL LIGHT IN REACH.
--- NOTE | 2019-03-30 20:20 | NUR ---
AMBULATED PT SBA AROUND MEDICAL FLOOR. TOLERATED WELL, DID GET SL. WINDED, STATED SHE FELT GOOD WALKING, NO NAUSEA. IN BATHROOM TO ATTEMPT A BM.
--- NOTE | 2019-03-30 20:50 | NUR ---
PATIENT ASSESMENT COMPLETED. PATIENTS EVENING MEDICATIONS GIVEN PER ORDER. PATIENT RATES PAIN AT A 8/10 IN LOW ABD. PATIENT GIVEN PRN PAIN MEDICATION PER ORDER. PATIENT IS SITTING UP IN BED WATCHING TV. PATIENTS NG REMAINS ON LWIS. PATIENTAS IV IS NO LONGER PATENT. PATIENT UP TO THE RESTROOM. PATIENT HAD XL FORMED BM. PATIENT IS BACK IN BED RESTING. PATIENT DENIES ANY FURTHER NEEDS. CALL LIGHT IN REACH. PATIENT HAS LVS, PLACED CALL TO HOUSE FLOAT TO START NEW IV.
--- NOTE | 2019-03-30 21:50 | NUR ---
patients VS and I&Os were complete. pt was wondering about gum and when her new IV would be inserted. RN notified.
--- NOTE | 2019-03-30 23:13 | NUR ---
NEW IV STARTED BY JUDE BAKER AND RECORDED. PATIENTS IV IS INFUSING PER ORDER. PATIENTS SCHEDULED MEDICATIONS GIVEN PER ORDER. VITLS TAKEN AND RECORDED. PATIENT COMPLAINS OF NAUSEA. PATIENT GIVEN PRN NAUSEA MEDICATION. PATIENT DENIES ANY FURTHER NEEDS. CALL LIGHT IN REACH.
--- NOTE | 2019-03-31 01:12 | NUR ---
ANSWERED CALL LIGHT. SBA TO THE BATHROOM AND BACK TO BED.
--- NOTE | 2019-03-31 01:23 | NUR ---
PATIENTS SCHEDULED MEDICATIONS GIVEN PER ORDER. PATIENT DENIES ANY PAIN OR NAUSEA. NO NEEDS NOTED. CALL LIGHT IN REACH.
--- NOTE | 2019-03-31 03:15 | NUR ---
PATIENT ASSISTED TO REPOSITION IN BED. PATIENT DENIES ANY PAIN OR NAUSEA. ASSESMENT COMPLETED. NO NEEDS NOTED. CALL LIGHT IN REACH.
--- NOTE | 2019-03-31 03:38 | NUR ---
ANSWERED CALL LIGHT. SBA TO THE BATHROOM AND BACK TO BED. NGT CONNECTED. PATIENT C/O PAIN NUMBER 9. PRIMARY RN NOTIFIED.
--- NOTE | 2019-03-31 04:39 | NUR ---
PATIENT WANTED TO GO ON A WALK. WE WENT TWO ROUNDS AROUND NURSING STATION. SHE DIDNT NEED ANYTHING FURTHER.
--- NOTE | 2019-03-31 04:48 | NUR ---
PATIENT ASSISTED IN WALKING X2 LAPS. PATIENT TOLERATED ACTIVIY WELL. PATIENT IS NOW BACK IN BED RESTING. IV INFUSING. NG TO LWIS. CALL LIGHT IN REACH.
--- NOTE | 2019-03-31 05:16 | NUR ---
PATIENT RESTED ON AND OFF THROUGHOUT THE SHIFT. PATIENT IS NPO AT THIS TIME. NG TO LWIS. PATIENT IS ON RA. PATIENT IS A SBA AND COMPLETED X2 LAPS AT THE BEGINNING OF THE SHIFT AND LATER IN THE SHIFT. PATIENT REFUSED SCDS. PATIENT HAS UROSTOMY AND SELFS CATHS PRN. PATIENT IS AAOX3.
--- NOTE | 2019-03-31 05:46 | NUR ---
PATIENT ASSISTED TO THE RESTROOM BY MATERIAL REQUIREMENTS WORKER. PATIENT WAS ABLE TO VOID. PATIENT IS NOW RESTING IN THE RECLINER. PATIENT RATES PAIN AT A 2/10. PATIENT DENIES THE NEED FOR PAIN MEDICATION AT THIS TIME. CALL LIGHT IN REACH.
--- NOTE | 2019-03-31 07:53 | NUR ---
0710: BEDSIDE REPORT RECEIVED FROM AMMY BAKER. PT RESTING IN HER BED AND ASSISTED UP TO THE CHAIR PER HER REQUEST. NG TO LIWS AND DRAINING LIGHT GREEN FLUID. IV INFUSING D5LR AT 125. CALL MUSE WITHIN REACH.
--- NOTE | 2019-03-31 07:55 | NUR ---
PT UP AMBULATING WITH THE AQUATIC HABITAT BIOLOGIST IN THE HALLS AT THIS TIME.
--- NOTE | 2019-03-31 08:05 | NUR ---
PATIENT AMBULATED 2 LAPS IN [facility]. PATIENT NOW IN CHAIR. CALL LIGHT IN REACH. NO FURTHER NEEDS AT THIS TIME.
--- NOTE | 2019-03-31 09:38 | NUR ---
PT COMPLAINS OF A MARTINI BUT REFUSED THE TYLENOL SUPPSITORY AND STATES SHE DOES NOT WANT DILAUDID FOR A MARTINI. PT STATES SHE NORMALY HAS 12-24 OZ OF SODA A DAY. CALL MUSE WITHIN REACH.
--- NOTE | 2019-03-31 11:01 | NUR ---
PT HAVING A ROUGH AM. COMPLAINS OF SEVERE HEADACHE, OLIVIA MONTES IN TO HELP. PT REQUESTED PRAYER. WILL FOLLOW NEEDED
--- NOTE | 2019-03-31 12:41 | NUR ---
PT JUST RETURNED FROM A WALK IN THE HALLS WITH STAFF. HER SUCTIONED WAS REPLACED ORDERED. PT STATES HER MARTINI HAS IMPROVED AT THIS TIME.
--- NOTE | 2019-03-31 14:00 | NUR ---
PT MOVED TO ROOM 117 FOR A BETTER VIEW. PT STATES SHE LIKES HER ROOM "WAY BETTER" DUE TO HAVING A BETTER VIEW. PT NOW WATCHING TV. WHEN ASKED SHE STATES SHE HAS A MARTINI RATED AT A 8/10. SHE STATES IT WILL NOT GO AWAY UNTIL THE NG IS REMOVED AND DENIES THE NEED FOR ANY MEDICATION AT THIS TIME.
--- NOTE | 2019-03-31 14:04 | NUR ---
PT REQUESTED I WALK WITH HER. SHE WAS ANXIOUS TO GET OUT OF RM. OLIVIA MCCALL PAUSED NG. PLEASANT VISIT, SHE IS TAKING HER PRESENT MED ISSUES IN STRIDE AND SEEMS TO HAVE A GOOD SENSE OF HUMOR. HEADACHE IS BETTER FROM EARLIER TODAY. I EXTENDED A BLESSING, WILL FOLLOW NEEDED
--- NOTE | 2019-03-31 14:54 | NUR ---
PT TALKING WITH DR MELO AT THIS TIME. DR MELO AWARE OF HER VITAL SIGNS.
--- NOTE | 2019-03-31 15:18 | NUR ---
PATIENT UP IN ROOM, IN ROOM. CALL LIGHT IN REACH. NO FURTHER NEEDS AT THIS TIME.
--- NOTE | 2019-03-31 15:41 | NUR ---
IMAGING CALLED IN REGARDS TO THE SMALL BOWEL FOLLOW THROUGH, SAID THAT WE WOULD NOT HAVE RADIOLOGY WHEN THE TEST WOULD BE COMPLETE TONIGHT AT 9 AND WANTED TO KNOW IF THEY COULD DO THE TEST FIRST THING TOMORROW MORNING, I CALLED DR MELO AND HE SAID THAT WOULD BE FINE. NOTIFIED CHARGE NURSE.
--- NOTE | 2019-03-31 17:07 | NUR ---
PT SITTING UP IN HER BED WATCHING TV. SHE STATES SHE HAS A MARTINI RATED AT A 10/10. SHE STATES SHE THINKS THE MARTINI IS RELATED TO NARCOTICS. PT WAS MEDICATED WITH TYLENOL, SEE MAR. PT ALSO REMOVED HER PONYTAIL AND STATES THAT IS ALSO HELPING. PT GIVEN AN ICE PACK AND SHE PLACED IT BEHIND HER NECK.
--- NOTE | 2019-03-31 17:53 | NUR ---
PT DENIES ANY PROBLEMS OR PAIN AT THIS TIME. CALL MUSE REMAINS WITHIN REACH.
--- NOTE | 2019-03-31 17:54 | NUR ---
PT REFUSED ANOTHER WALK AT THIS TIME, STATING "NOT TODAY, NOT TODAY".
--- NOTE | 2019-03-31 18:00 | NUR ---
PATIENT IN BED RESTING, RN IN ROOM. CALL LIGHT IN REACH. NO FURTHER NEEDS AT THIS TIME.
--- NOTE | 2019-03-31 18:03 | NUR ---
PT RESTING IN HER BED AND STATES HER MARTINI IS "BETTER" AFTER THE TYLENOL AND ICE PACK.
--- NOTE | 2019-03-31 19:10 | NUR ---
SHIFT REPORT RECEIVED FROM IRINAMDYARI HILRAIO AT BEDSIDE. PT RESTING IN BED, AWAKE, RR WNL. NO DISTRESS NOTED, PT LAUGHING AND INTERACTING WITH NURSING STAFF. NG TUBE CONNECTED TO WALL, LOW INTERMITTENT SUCTION.BROWN IN COLOR. D5LR INFUSING AT 100 MLS/HR, IV SITE WNL. BLINDS PULLED UP PER PT REQUEST, NO FURTHER NEEDS, CALL LIGHT IN REACH. PT DENIES PAIN.
--- NOTE | 2019-03-31 20:03 | NUR ---
PT AMBULATING INDEPENDENTLY IN HALLWAY. DECLINES NEEDS.
--- NOTE | 2019-03-31 20:08 | NUR ---
PT GIVEN HARD CANDY AND GUM PER REQUEST. CONTINUES TO AMBULATE INDEPENDENTLY.
--- NOTE | 2019-03-31 22:30 | NUR ---
ASSESSMENT COMPLETE, PT A/OX4, DENIES PAIN. VSS, SCHEDULED MEDICATIONS ADMINISTERED (SEE EMAR). IV FLUIDS INFUSING PER MD ORDERS, IV SITE WNL. NG TUBE TO WLIS, BROWN IN COLOR. 150MLS OUTPUT RECORDED, WILL MONITOR. PT NPO, DENIES NAUSEA AT THIS TIME. NO FURTHER NEEDS, CALL LIGHT IN REACH.
--- NOTE | 2019-04-01 01:17 | NUR ---
PT AWAKE AND REPORTS 8-9/10 PAIN, PRN DILAUDID ADMINISTERED. DURING ADMINISTRATION, PT REPORTED NAUSEA. PRN ZOFRAN ALSO ADMINISTERED. NO FURTHER NEEDS, CALL LIGHT IN REACH, NEW EMESIS BAG PROVIDED.
--- NOTE | 2019-04-01 02:01 | NUR ---
PT RESTING IN BED, EYES CLOSED, RR WNL. PT APPEARS COMFORTABLE, NO DISTRESS NOTED. AUDIBLE SNORING NOTED. IV FLUIDS INFUSING PER MD ORDERS, IV SITE WNL. CALL LIGHT IN REACH. NG TUBE TO WLIS, CONTENTS BROWN IN COLOR. WILL MONITOR.
--- NOTE | 2019-04-01 04:07 | NUR ---
ASSESSMENT COMPLETE, NO NEW CONCERNS. PT UP SBA TO VOID, TOLERATED AMBULATION WELL, RETURNED TO BED. PT A/OX4, DENIES PAIN, NO DISTRESS NOTED. NG TUBE FLUSHED WITH 20 MLS WATER, PATENT, CONNECTED TO LOW INTERMITTENT WALL SUCTION, CONTENTS BROWN IN COLOR. NEW BAG OF IV FLUIDS INFUSING, IV SITE WNL. PT DENIES NEEDS, CALL LIGHT IN REACH.
--- NOTE | 2019-04-01 06:40 | NUR ---
SCHEDULED IV MEDICATION ADMINISTERED (SEE EMAR). VS WNL FOR MED ADMINISTRATION. WHEN FLUSHED AFTER MED WAS ADMINISTERED, PT VERBALIZED INCREASE IN BURN. MILD REDDNESS NOTED, NO SIGNS OF INFILTRATION. IV PLACED ON STANDBY AT THIS TIME. 0730: DAYSJOB MCCALL MADE AWARE OF IV SITE, STEFANY BAKER WILL ASSESS.
--- NOTE | 2019-04-01 07:15 | NUR ---
BEDSIDE REPORT... PT SITTING UP IN BED ALERT AND ORIENTED, SHE HAS NGT IN PLACE AND IS WANTING IT OUT TODAY. WILL HAVE SMALL BOWEL FOLLOW THROUGH TODAY. PT REPORTS HEADACHE IS GONE FROM YESTURDAY. PT SMILING AND LAUGHING WITH STAFF.
--- NOTE | 2019-04-01 10:13 | NUR ---
PT TO BOWEL STUDY AT 0925. MYRIAM REPORTED PT BECAME NAUSEOUS DURING MOVEMENT. WENT TO ASSESS N/V, BUT PT WAS SLEEPING. PT SLEEPING PEACEFULLY SINCE GIVING DILAUDID FOR 7/10 PAIN. PT OXYGEN SATS IN 83-88% RANGE. 2 L OF OXYGEN APPLIED. PT ON CONTINOUS MONITOR WHILE SLEEPING. WILL CONTINUE TO MONTIOR.
--- NOTE | 2019-04-01 11:10 | NUR ---
PT IV FLUIDS DELAYED IN PUMPING DUE TO BOWEL STUDY AND PUMP NOT STARTING AFTER RETURN
--- NOTE | 2019-04-01 12:20 | NUR ---
PT RESTING QUIELTY IN BED, SHE HAS BEEN UP FREQUENT TO BATHROOM WITH LIQUID BM AFTER CONTRAST. BOWEL TONES RARE NOW, WAS HYPERACTIVE WITH LIQUID BM. SHE REPORTS PAIN IS TOLERABLE AT THIS TIME.
--- NOTE | 2019-04-01 12:39 | NUR ---
PT AMBULATING WITH SN, NG TUBE STILL INSERTED. PT CONTINUES TO HAVE HER FUNNY, SARCASTIC SENSE OF HUMOR. EXTENDED A BLESSING, WILL FOLLOW NEEDED
--- NOTE | 2019-04-01 14:00 | NUR ---
PT NGT ON STANDBY UNTIL NEXT STEP OF BOWEL STUDY. PT STATES "FELT LIKE THERE WAS A HALF A GALLON" OF LIQUID STOOL FOUR TIMES. THE STOOLS BECAME COLOR COATER IN COLOR BY THE FOURTH BM.
--- NOTE | 2019-04-01 14:28 | NUR ---
PT FLUIDS RUNNING THROUGH PUMP AT 100ML/HR @1350
--- NOTE | 2019-04-01 14:56 | NUR ---
PT SALINE LOCKED FOR BOWEL STUDY. RADIOLOGY JUST WHEELED PATIENT OUT.
--- NOTE | 2019-04-01 15:30 | NUR ---
PT BACK FROM IMAGING. BACK ON IVF. BT HYPOACTIVE AT THIS TIME, STILL HAVING SMALL LIQUID STOOLS.
--- NOTE | 2019-04-01 15:59 | NUR ---
PT OFF THE UNIT FOR LAST IMAGE OF SMALL BOWEL FOLLOW THROUGH
--- NOTE | 2019-04-01 17:29 | NUR ---
NG TUBE D/C'D PATIENT TOLERATED WELL.
--- NOTE | 2019-04-01 18:03 | NUR ---
PT HAS BEEN UP AMBULATING IN HALLS, HAS HAD SMALL BOWEL FOLLOW THROUGH STUDY TODAY, SHE HAS HAD MULTIPLE SMALL LIQUID STOOLS, AFTER CONTRAST PLACED. SHE HAS HAD PAIN COVERAGE ONCE WITH IV DILAUDID PRN THIS AM. STUDY SHOWED SBO RESOLVED. NGT REMOVED, FULL LIQUID TRAY ORDERED. NO NAUSEA TODAY. NEW IV SITE X2 OVER SHIFT. IVF INFUSING WNL AT THIS TIME. SHE IS INDEPENDENT IN ROOM.
--- NOTE | 2019-04-01 19:01 | NUR ---
PATIENT DECIDED TO TAKE A BED BATH BEFORE SHE GOES TO [facility]. ASKED HER IF SHE WOULD LIKE TO WASH HER HAIR AND SHE SAID NO.
--- NOTE | 2019-04-01 21:45 | NUR ---
EVENING MEDS GIVEN, PT RESTING IN BED, AOX4, APPROPRIATE, PT DENIES SIGNIFICANT PAIN AT THIS TIME, STATES PAIN IS 3/10, PT'S VSS, PT EATING ICE CREAM, NO C/O NAUSEA, IV FLUIDS INFUSING PER EMAR WNL. CALL LIGHT WITHIN REACH. FALL PRECAUTIONS IN PLACE.
--- NOTE | 2019-04-01 21:57 | NUR ---
patient requested ice cream by call light and it was approved by OLIVIA Huff.
--- NOTE | 2019-04-02 01:17 | NUR ---
PT RESTING IN BED, EYES CLOSED, BREATHS EVEN, UNLABORED, NO REQUESTS AT THIS TIME, CALL LIGHT WITHIN REACH. IV FLUIDS INFUSING PER EMAR WNL.
--- NOTE | 2019-04-02 01:56 | NUR ---
PT CALLED ASKING FOR MEDICATION FOR A HEADACHE. TORADOL ADMINISTERED. PT DENIES FURTHER NEEDS AT THIS TIME. COOL WASH CLOTH ON HEAD. CALL LIGHT IS CLOSE.
--- NOTE | 2019-04-02 02:31 | NUR ---
PT GIVEN BROTH PER REQUEST, NO C/O NAUSEA, TOLERATING WELL. CALL LIGHT WITHIN REACH. IV FLUIDS INFUSING PER EMAR WNL.
--- NOTE | 2019-04-02 03:04 | NUR ---
PT IS WALKING IN THE HALLS, SHE STATES HER HEADACHE HAS GONE AWAY. SHE DENIES NEEDS AT THIS TIME.
--- NOTE | 2019-04-02 05:28 | NUR ---
PT AOX4, APPROPRIATE, PT RECEIVED PRN PAIN MEDICATION X1 AT BEGINNING OF SHIFT AND HAS NOT C/O SIGNIFICANT PAIN SINCE, PT INDEPENDENT IN ROOM, TOLERATING FULL LIQUID DIET, IV FLUIDS INFUSING PER EMAR WNL. USES CALL LIGHT APPROPRIATELY, PT WALKED IN THE HALLS X2 THIS SHIFT, VSS. AFEBRILE.
--- NOTE | 2019-04-02 06:30 | NUR ---
pt given prn pain medication for 7/10 pain in abdomen see emar. pt tolerated well. scheduled meds given, no further needs at this time, call light within reach.
--- NOTE | 2019-04-02 07:35 | NUR ---
0705: REPORT RECEIVED FROM DEANNA BAKER. PT ON THE PHONE AT THIS TIME. K+ 3.3 THIS AM AND WAS REPLACED.
--- NOTE | 2019-04-02 08:28 | NUR ---
PT SITTING IN THE RECLINER EATING HER FULL LIQUID DIET AND TOLERATING IT WELL. SHE STATES HER ABD PAIN IS A 3 WHICH SHE STATES IS ACCEPTABLE TO HER AND SHE DENIES ANY OTHER PROBLEMS AT THIS TIME.
--- NOTE | 2019-04-02 08:35 | NUR ---
CONTACTED RESPIRATOTY THERAPIST REGARDING 0800 MEDICATION. RT STATES "PT REFUSTED THE MEDICATION." WILL BE ENTERING REFUSAL SHORTLY
--- NOTE | 2019-04-02 09:50 | NUR ---
Pt has been out ambulating in the halls this am and is now sitting in her chair without any new complaints. She states she is happy that she is being discharged today.
--- NOTE | 2019-04-02 10:03 | NUR ---
DISCHARGE INSTRUCTIONS GIVEN TO THE PT AT THIS TIME WITH UNDERSTANDING STATED.
--- NOTE | 2019-04-02 10:49 | NUR ---
PT STATES SHE HAS ABD PAIN RATED AT A 7/10. PT MEDICATED FOR PAIN, SEE EMAR.
--- NOTE | 2019-04-02 11:10 | DS ---
[facility] [address], [place] [address] Signed ADMISSION DATE: 03/30/2019 DISCHARGE DATE: 04/02/2019 FINAL DIAGNOSIS: Resolved small-bowel obstruction. PROCEDURES: 1. CT scan of abdomen and pelvis. 2. Small-bowel follow-through. HISTORY OF PRESENT ILLNESS: Mati is a 54-year-old lady, born with exstrophy of the bladder. She required three surgeries by the time she was 4 years of age. 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 She had to have open right nephrectomy as well. She now has an ileal conduit/urostomy in the right mid abdomen. She has some trouble with intermittent small bowel obstructions. She talked about the crampy abdominal pain. At this time, she came because the pain was quite severe. HOSPITAL COURSE: Mati had been in the ER and a CT scan showed some dilated loops in the left mid abdomen. I was asked to admit her as a general surgeon on-call for concerns of a small-bowel obstruction. We initially treated her conservatively with an NG tube. She was making improvements and we sent her for a small-bowel follow-through. The contrast went through non-dilated small bowel into the colon. Of course, she has had multiple bowel movements since then. The NG tube has been removed. We have had her on a full liquid diet. Overall, she is doing well. However, we have noticed that her heart does run a little tachycardic around 100-110 and her blood pressure has been running 140s to 150s. She has been treated with labetalol and nevertheless, this is persisted. This is something that she might review with her primary care provider. At this point, she is markedly improved and will be discharging her to home. DISCHARGE PLANS AND MEDICATIONS: Mati will be discharged home with no new prescriptions. She can resume her chronic medications at home. We spoke in daily about her congenital malformation and her surgeries. We discussed adhesions in detail along with the idea of a low residue diet. If she feels abdominal pain or cramping, she could cut back clear to a liquid diet for a few days and see if that will pass. She knows there is a 20% chance of recurrent adhesions and bowel obstruction if she has surgery. Not unexpectedly, she wants to avoid surgery if she can. At this point, she is doing fine. We are going to release her from care and she can follow up in my office as needed. She needs to maintain her followup Electronically Signed By: MAGEN MELO MD 04/02/19 1110 PATIENT NAME: MATI SALGUERO DISCHARGE SUMMARY DATE OF : 67 REPORT #: [id number] PHYSICIAN: MAGEN MELO MD PCP: LUCIANO CULVER REPORT IS CONFIDENTIAL AND NOT TO BE RELEASED WITHOUT AUTHORIZATION [address] [address] Signed with her primary care provider. She has expressed understanding and agrees above plan. MD TO Alejandro/MAHENDRAL /[id number] cc: STEPHANIE Edmondson MD Copies: LUCIANO CULVER ANDREW L MD ~ Electronically Signed By: MAGEN MELO MD 04/02/19 1110 PATIENT NAME: MATI SALGUERO DISCHARGE SUMMARY DATE OF : 67 REPORT #: [id number] PHYSICIAN: MAGEN MELO MD PCP: LUCIANO CULVER REPORT IS CONFIDENTIAL AND NOT TO BE RELEASED WITHOUT AUTHORIZATION
--- NOTE | 2019-04-02 11:27 | NUR ---
PT HAS SCANT AMOUNT OF PINK/ORANGE TINGED BLOOD IN URINE AFTER SELFCATHETERIZATION. CLINICAL INSTRUCTOR CONFIRMED BLOOD. PT STATES UTI SX USUALLY INCLUDE: DYSURIA AND BLADDER PAIN AND IS NOT HAVING THOSE SX AT THIS TIME. SHE HAS ONLY HAD BLOOD IN HER URINE DURING TIMES OF INFECTION. HEMATURA IS LIKELY DUE TO HEPARIN ADMINISTRATION AND SELF CATHERIZATION PER PRIMARY NURSE AND CLNICAL INSTRUCTOR.
--- NOTE | 2019-04-02 11:39 | NUR ---
DR MELO NOTIFIED OF THE BLOOD IN THE PT'S URINE FOLLOWING SELF CATH. NO NEW ORDERS AT THIS TIME.
--- NOTE | 2019-04-02 12:06 | NUR ---
PT REPORTED A 5/10 PAIN AFTER IV DILAUDID. THE MEDICATION SHOULD HAVE HELPED HER PAIN BY THAT TIME. PT GIVEN OPTION FOR ACETAMINOPHEN OR 0.5MG OF DILAUDID. PT IS READY FOR DC AND WANTS TO NOT HAVE TO STAY BECAUSE OF DILAUDID MONITORING. APAP GIVEN. PT WAITING FOR LUNCH THEN READY TO DC. IV DC'ED AT THIS TIME.
--- NOTE | 2019-04-02 12:17 | NUR ---
PT DC VITAL SIGNS DELEGATED TO KARLI MCKEON.
--- NOTE | 2019-04-02 12:18 | NUR ---
PT TO BE DC'D AFTER LUNCH. NG GONE, AND PT AMBULATING IN HALLS. SPUNKY AND SEEMS TO ENJLY ENTERACTION WITH STAFF. JOKED WITH ME AND I EXTENDED A BLESSING. WILL FOLLOW NEEDED
--- NOTE | 2019-04-02 12:51 | NUR ---
Pt states her abd is now a 3/10 and very acceptable to her. Pt being discharged at this time.
== END 2019-04-02 12:55 | disposition home or self-care (01) | DRG 389 ==
LOC: ED 21:03 → MS 21:06
PROVIDERS: ADMIT Colon & Rectal Surgery
DX: K56.609 Unspecified intestinal obstruction, unspecified as to partial versus complete obstruction (principal); Q64.10 Exstrophy of urinary bladder, unspecified; R00.0 Tachycardia, unspecified; J45.909 Unspecified asthma, uncomplicated; E66.9 Obesity, unspecified; I10 Essential (primary) hypertension; K21.9 Gastro-esophageal reflux disease without esophagitis; E87.6 Hypokalemia; E83.39 Other disorders of phosphorus metabolism; R51 Headache; Z93.6 Other artificial openings of urinary tract status; Z90.5 Acquired absence of kidney; Z68.34 Body mass index [BMI] 34.0-34.9, adult; Z87.891 Personal history of nicotine dependence; Z79.51 Long term (current) use of inhaled steroids; Z79.899 Other long term (current) drug therapy; Z88.5 Allergy status to narcotic agent; Z88.0 Allergy status to penicillin; Z88.7 Allergy status to serum and vaccine; Z88.8 Allergy status to other drugs, medicaments and biological substances; Z91.040 Latex allergy status
CPT/HCPCS: 36415; 71045; 74176; 74250; 80048; 80053; 81001; 83690; 83735; 84100; 84134; 85025; 87088; 94640; 94760; 96365; 96367; 96375; 99285-25; J0131; J1170; J1644; J1885; J1956; J2405; J2550; J7060; J7120

== ENCOUNTER 2019-11-08 05:39 | Emergency (ER) | payer MEDICARE, OTHER ==
[~2019-11-08] VITALS: Ht 162.6 cm; Wt 77.1 kg
--- OUTSIDE RECORDS SUMMARY | ~2019-11-08 | XMS | Encounter Summary ---
Demographics + + + | Address | [address] | | | [place] [address] | + + + | Home Phone | | + + + | Preferred Language | Unknown | + + + | Marital Status | | + + + | Denominational Affiliation | Unknown | + + + | Race | Unknown | + + + | Ethnic Group | Unknown | + + + Author + + + | Author | [facility] | | | and [place] | + + + | Organization | [facility] | | | and [place] | + + + | Address | Unknown | + + + | Phone | Unavailable | + + + Support + + + + + | Name | Relationship | Address | Phone | + + + + + | Darius Fields | ECON | [address] | | | | | , [address] | | + + + + + Care Team Providers + +------+ + | Care Inspector Rough Castings Name | Role | Phone | + +------+ + PCP | Unavailable | + +------+ + Encounter Details +--------+ + + + + | Date | Type | Department | Care Team | Description | +--------+ + + + + | 01/09/ | Abstract | [facility] | Provider, | | | 2018 | | [address] | [address] | | | | | [place] | [address] | | | | | [address] | [place] [address] | | | | | [phone] | | | +--------+ + + + + Social History + +-------+ +--------+------+ | Tobacco Use | Types | Packs/Day | Years | Date | | | | | Used | | + +-------+ +--------+------+ | Current Every Day | | | | | | Smoker | | | | | + +-------+ +--------+------+ + +---+---+---+ | Smokeless Tobacco: | | | | | Never Used | | | | + +---+---+---+ + + +---------+ + | Alcohol Use | Drinks/Week | oz/Week | Comments | + + +---------+ + | No | | | | + + +---------+ + + + + | Sex Assigned at | Date Recorded | | | | + + + | Not on file | | + + + + + + + | Job Start Date | Occupation | Industry | + + + + | Not on file | Not on file | Not on file | + + + + + + + + | Travel History | Travel Start | Travel End | + + + + + + | No recent travel history available. | + + documented as of this encounter Plan of Treatment +--------+---------+ + + + | Date | Type | Specialty | Care Team | Description | +--------+---------+ + + + | 12/02/ | Office | Gastroenterology | [facility], | | | 2020 | Visit | | CRISTHIAN Carbone [address] | | | | | | [address] | | | | | | [place] | | | | | | [address] | | | | | | | | +--------+---------+ + + + documented as of this encounter Visit Diagnoses Not on filedocumented in this encounter"
--- OUTSIDE RECORDS SUMMARY | ~2019-11-08 | XMS | Encounter Summary ---
Demographics + + + | Address | [address] | | | [place] [address] | + + + | Home Phone | | + + + | Preferred Language | Unknown | + + + | Marital Status | Single | + + + | Yazidism Affiliation | CHR | + + + | Race | White | + + + | Ethnic Group | Not or | + + + Author + + + | Author | [facility] | + + + | Organization | [facility] | + + + | Address | Unknown | + + + | Phone | Unavailable | + + + Support + + + + + | Name | Relationship | Address | Phone | + + + + + | Darius Fields | HELEN | [address] | | | | | [place] [address] | | + + + + + Care Team Providers + +------+ + | Care Primary Care Nurse Name | Role | Phone | + +------+ + | Serena Barroso | PCP | | + +------+ + Reason for Visit + + + | Reason | Comments | + + + | Follow-up visit | pouchogram | + + + Encounter Details +--------+---------+ + + + | Date | Type | Department | Care Team | Description | +--------+---------+ + + + | 08/18/ | Office | Urology Oncology | Kristie, | Bladder Extrophy; | | 2007 | Visit | [address] | MD [place] | Status of Other | | | | Mailcode: [id number] | | Artificial Opening | | | | [facility] | | of Urinary Tract | | | | and Healing, | | | | | | [address], | | | | | | Floor [place], [place] | | | | | | [address] | | | | | | [phone] | | | +--------+---------+ + + + Social History + + + +--------+------+ | Tobacco Use | Types | Packs/Day | Years | Date | | | | | Used | | + + + +--------+------+ | Current Every Day | Cigarettes | 0.5 | 25 | | | Smoker | | | | | + + + +--------+------+ + + +---------+ + | Alcohol Use [...] + + documented as of this encounter Last Filed Vital Signs + + + + + | Vital Sign | Reading | Time Taken | Comments | + + + + + | Blood Pressure | 112/72 | 08/18/2008 1:06 PM | | | | | PDT | | + + + + + | Pulse | 102 | 08/18/2008 1:06 PM | | | | | PDT | | + + + + + | Temperature | - | - | | + + + + + | Respiratory Rate | - | - | | + + + + + | Oxygen Saturation | - | - | | + + + + + | Inhaled Oxygen | - | - | | | Concentration | | | | + + + + + | Weight | 73.2 kg (161 lb 4.8 | 08/18/2008 1:06 PM | | | | oz) | PDT | | + + + + + | Height | - | - | | + + + + + | Body Mass Index | 27.69 | 05/21/2007 3:50 PM | | | | | PDT | | + + + + + documented in this encounter Progress Notes Re[facility]do Flowers - 08/18/2008 3:11 PM PDTI saw the patient with Dr. Dilma Grigsby. I was present with the resident during the history and physical examination. I agree with the re sident's assessment and plan as documented in the note. I was present for and actively parti cipated in the cystogram performed today. Lacy Flowers M.D. derrick car operator Section of Urologic Oncology Division of Urology & Renal Transplantation Replaced By [facility] Dilma Holm Md - 08/18/2008 1:51 PM PDTFormatting of this note might be dif ferent from the original. UROLOGIC ONCOLOGY CLINIC- FOLLOW-UP Identification: Samreen Zaragoza is a 43 year old woman with a history of bladder exs trophy. 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 She did well until she underwent endoscopic removal of stones contained within the Kock pouch. Following this procedure she was unable to catheterize the pouch succ essfully, and there was leakage from the pouch. On 11/04/05 she underwent revision of Kock yee ch (takedown of efferent limb and construction of a continent cutaneous channel via a Loc subserosal tunneled fran-appendix). She was admitted 06/09/07 for an interventional radiology percutaneous nephrostomy with antegrade balloon dilation of her stricture and stent placemen t. Stent removed ast last appointment Jul 2007. She was last seen 02/01 at which time a pouch ogram demonstrated no evidence of obstruction. She also had a MAG-3 demonstrating 20% functi on on the right. She now returns for follow-up. Subjective: Ms. Zaragoza states she has been getting UTIs almost every month over the last 6 months. Renato villalta was admitted to an outside facility 04/03 for a UTI/pyelonephritis. Urine culture demonstra mariaa MRSA. At that time she had a renal U/S which demonstrated moderate-severe right pelvical iectasis. She also had a Lasix renogram which demonstrated a flat flow and function curve. S he continues to perform catheterization every 4hrs and continues to have intermittent right flank pain. Creatinine is stable at 0.6. ROS: Denies bone pain, chest pain, shortness of breath, weight loss, fatigue, or significan t pain. Current outpatient prescriptions Medication Sig ADVAIR DISKUS IN None Entered ALBUTEROL IN None Entered Catheter 14 Fr-16" Misc.(Non-Drug; Combo Route) Misc [place] or [place] ONLY Please - Use as directed diazepam 5 mg Oral Tablet take 1 tablet (5 mg) by oral route 2 times per day ESTRACE 1 MG TAB take 1 tablet (1mg) by oral route once daily for 21 days off for 7 day s, repeat cycle fluconazole (DIFLUCAN) 100 mg Oral Tablet take 2 tablet once daily, then take 1 tablet once a day for seven days LUBRICANTS TOPICAL [place] Jelly- Use as directed MACROBID ORAL daily nitrofurantoin macro crystals (MACRODANTIN) 100 mg Oral Capsule take 1 capsule (100 mg) by oral route once a day Trazodone HCl 50 mg Oral Tablet 1x daily Physical Examination BP 112/72 | Pulse 102 | Wt 73.165 kg (161 lb 4.8 oz) Gen: appears well, in NAD Abdomen: soft, NT/ND, multiple healed scars Continent channel opens right abdomen Extr: No edema Neuro: Non-focal. Loopogram: No evidence of reflux bilaterally. Labs: Component 08/18/2008 GLUCOSE-[facility] 100 (H) UREA NITROGEN-[facility] 15 CREATININE-[facility] 0.6 SODIUM-[facility] 137 POTASSIUM-[facility] 4.8 CHLORIDE-[facility] 98 CO2 TOTAL-[facility] 23 (L) CALCIUM-[facility] 9.8 Impression: 43yo female with a continent cutaneous pouch (takedown of efferent limb and construction of a continent cutaneous channel via a Loc subserosal tunneled fran-appendix), Right chronic hydronephrosis and poorly functioning right kidney, recurrent UTI. Plan: There is no evidence of reflux into the right collecting system on the pouchogram today. In addition, she has a prior MAG-3 demonstrating 20% function of that kidney. Given her recurr ent UTIs, and hospitalizations, we discussed options for management including a trial of pro phylactic antibiotics or right nephrectomy, although the latter may not guarantee resolution of her right flank pain. She understood and elected to start a trial of prophylactic antibi otics. - Macrobid 100mg PO DAILY, prophylaxis - Return to clinic in 6mo to re-assess with Cystogram and ultrasound. Dilma Grigsby MD. DILMA GRIGSBY MD UROLOGY ONCOLOGY [address] [place] [address] documented in this enc ounter Plan of Treatment Not on filedocumented as of this encounter Visit Diagnoses + + | Diagnosis | + + | Bladder extrophy Exstrophy of urinary bladder | + + | Status of other artificial opening of urinary tract | + + documented in this encounter
--- OUTSIDE RECORDS SUMMARY | ~2019-11-08 | XMS | Encounter Summary ---
Demographics + + + | Address | [address] | | | [place] [address] | + + + | Home Phone | | + + + | Preferred Language | Unknown | + + + | Marital Status | Single | + + + | Orthodoxy Affiliation | CHR | + + + | Race | White | + + + | Ethnic Group | Not or | + + + Author + + + | Author | [facility] | + + + | Organization | [facility] | + + + | Address | Unknown | + + + | Phone | Unavailable | + + + Support + + + + + | Name | Relationship | Address | Phone | + + + + + | Darius Fields | HELEN | [address] | | | | | [place] [address] | | + + + + + Care Team Providers + +------+ + | Care Fender Finisher Name | Role | Phone | + +------+ + | Rona Lyons MD | PCP | | + +------+ + Reason for Visit + + + | Reason | Comments | + + + | Preop | | + + + | Hematuria | | + + + Encounter Details +--------+---------+ + + + | Date | Type | Department | Care Team | Description | +--------+---------+ + + + | 06/09/ | Office | Urology Oncology | Kristie, | Hematuria; | | 2006 | Visit | [address] | MD Reinaldo | Hydronephrosis | | | | Mailcode: [id number] | | | | | | [facility] | | | | | | and Healing, | | | | | | [facility] | | | | | | [place], [place] | | | | | | [address] | | | | | | [phone] | | | +--------+---------+ + + + [...] + + + | Blood Pressure | 133/97 | 06/09/2007 11:56 AM | | | | | PDT | | + + + + + | Pulse | 126 | 06/09/2007 11:56 AM | | | | | PDT | [...] + + + + | Weight | 66 kg (145 lb 6.4 | 06/09/2007 11:56 AM | | | | oz) | PDT | | + + + + + | Height | - | - | | + + + + + | Body Mass Index | 24.96 | 05/21/2007 3:50 PM | | | | | PDT | | + + + + + documented in this encounter Progress Notes Reinadlo Flowers - 06/09/2007 3:41 PM PDTI saw the patient with Dr. Braden Salazar. I was p resent with the resident during the history and physical examination. I agree with the resi dent's assessment and plan as documented in the note. Lacy Flowers M.D. cardiothoracic physiotherapist Section of Urologic Oncology Division of Urology & Renal Transplantation Formerly [facility] [place] raden Salazar - 06/09 2:06 PM PDT UROLOGIC ONCOLOGY CLINIC- FOLLOW-UP NOTE IDENTIFICATION: Samreen Zaragoza is a 42 year old woman with a history of bladder exstrophy. Her initi al urinary diversion was an ileal conduit which was revised in 1988 to a continent Edwards pouc h. She did well until she underwent endoscopic removal of stones contained within the Kock p ouch. Following this procedure she was unable to catheterize the pouch successfully, and the re was leakage from the pouch. On 11/04/05 she underwent revision of Kock pouch (takedown of e fferent limb and construction of a continent cutaneous channel via a Loc subserosal tunnel ed fran-appendix). SUBJECTIVE: She has been doing well and has been catheterizing her pouch with a 14F catheter with minim al pain. She is not complaining of any incontinence. She is complaining of increasing righ t flank pain and on evaluation she was found to have right hydronephrosis and an increasing creatinine. She is here for further evaluation and treatment. She is asking for narcotic p ain medicine. OBJECTIVE: BP 133/97 | Pulse 126 | Wt 65.953 kg (145 lbs 6.4 oz) General: Alert and oriented, appears stated age, no obvious distress Abdomen: Soft, NT, nondistended, bowel sounds present. No masses. Multiple surgical scars a nd abdominal defect consistent with bladder extrophy and repair. Catheter site patent withou t erythema, discharge, or granulation tissue. Extremities: Warm and well perfused. No edema. CT scan 11/14/05 Left kidney is normal. Right renal multifocal parenchymal scarring with calictasis and overlying parenchymal thinning/scarring shows persistent moderate hydroureteronephrosis likely due to obstruction of the distal ureter near the anastomosis with the diversion. Renal Perfusion Study (MAG-3) with lasix: Preliminary report: 20% on right, 80% on left. Labs: Component 06/09/2007 WHITE CELL COUNT - [facility] 6.9 RED CELL COUNT - [facility] 4.36 HEMOGLOBIN, BLOOD - [facility] 14.4 HEMATOCRIT - [facility] 43.3 MCV - [facility] 99.3 (H) MCH - [facility] 33.0 (H) MCHC - [facility] 33.3 RDW-[facility] 13.6 PLATELET COUNT, BLOOD - [facility] 373 MPV-[facility] 9.6 NEUTROPHIL (%) - [facility] 66 (H) LYMPHOCYTE (%) - [facility] 27 MID-RANGE (%) - [facility] 7 NEUTROPHIL ABSOLUTE - [facility] 4.6 LYMPHOCYTE ABSOLUTE - [facility] 1.9 MID-RANGE ABSOLUTE - [facility] 0.5 GLUCOSE-[facility] 102 (H) UREA NITROGEN-[facility] 10 CREATININE-[facility] 0.9 PROTEIN, TOTAL-[facility] 7.3 ALBUMIN-[facility] 3.2 (L) CALCIUM-[facility] 9.3 BILIRUBIN, TOTAL-[facility] 0.6 ALK PHOS-[facility] 115 (H) AST-[facility] 54 (H) SODIUM-[facility] 136 POTASSIUM-[facility] 4.1 CHLORIDE-[facility] 105 (H) CO2 TOTAL-[facility] 28 ALT-[facility] 69 (H) INR-[facility] 0.90 (L) Lab Results Lab Test Name Results Date/Time URINECOLOR Straw 06/09/2007 URINEAPPEARA Turbid 06/09/2007 URINELE Small 06/09/2007 URINENITRITE Neg 06/09/2007 URINEUROBILI Norm 06/09/2007 URINEPROTEIN Neg 06/09/2007 URINEPH 7.0 06/09/2007 URINEBLOOD Mod 06/09/2007 URINESPECGRA 1.005 06/09/2007 URINEKETONES Neg 06/09/2007 URINEBILI Neg 06/09/2007 URINEGLUCOSE Neg 06/09/2007 ASSESSMENT: Status post revision of continent cutaneous urinary diversion. 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 She will need her stent out in 6 weeks. Braden Salazar MD Urology Resident Lacy Flowers M.D. cardiothoracic physiotherapist Section of Urologic Oncology Division of Urology & Renal Transplantation [facility] [place] heng, Rukhsana - 007 12:05 PM PDTUA done per verbal order of Dr. Flowers. documented in this encounter Plan of Treatment + +---------+--------+ + + | Name | Type | Priori | Associated Diagnoses | Date/Time | | | | ty | | | + +---------+--------+ + + | US KIDNEY BILATERAL | Imaging | Routin | Hydronephrosis | 06/09/2007 1:42 PM | | LTD | | e | | PDT | + +---------+--------+ + + documented as of this encounter Procedures + +--------+ + + + | Procedure Name | Priori | Date/Time | Associated Diagnosis | Comments | | | ty | | | | + +--------+ + + + | US KIDNEY & BLADDER | Routin | 06/09/2007 | | Results for this | | | e | 2:22 PM | | procedure are in the | | | | PDT | | results section. | + +--------+ + + + | UA 10 DIP POC | Routin | 06/09/2007 | Hematuria | Results for this | | | e | 12:04 PM | Hydronephrosis | procedure are in the | | | | PDT | | results section. | + +--------+ + + + documented in this encounter Results [facility] - COMPLETE METABOLIC SET (06/09/2007 2:28 PM PDT) + + + + + + | Component | Value | Ref Range | Performed | Pathologist | | | | | At | Signature | + + + + + + | GLUCOSE-[facility] | 102 (H)Comment: | 60 - 99 mg/dL | [facility] | | | | Reference range change | | DEPARTMENT | | | | for Glucose effective | | OF | | | | 02/05/07. | | PATHOLOGY | | + + + + + + | UREA | 10 | 6 - 20 mg/dL | [facility] | | | NITROGEN-CH | | | DEPARTMENT | | | H | | | OF | | | | | | PATHOLOGY | | + + + + + + | CREATININE- | 0.9 | 0.6 - 1.1 mg/dL | [facility] | | | CHH | | | DEPARTMENT | | | | | | OF | | | | | | PATHOLOGY | | + + + + + + | PROTEIN, | 7.3 | 6.3 - 8.0 g/dL | [facility] | | | TOTAL-CHH | | | DEPARTMENT | | | | | | OF | | | | | | PATHOLOGY | | + + + + + + | ALBUMIN-[facility] | 3.2 (L) | 3.4 - 4.4 g/dL | [facility] | | | | | | DEPARTMENT | | | | | | OF | | | | | | PATHOLOGY | | + + + + + + | CALCIUM-[facility] | 9.3 | 8.8 - 10.9 | [facility] | | | | | mg/dL | DEPARTMENT | | | | | | OF | | | | | | PATHOLOGY | | + + + + + + | BILIRUBIN, | 0.6 | 0.3 - 1.2 mg/dL | [facility] | | | TOTAL-CHH | | | DEPARTMENT | | | | | | OF | | | | | | PATHOLOGY | | + + + + + + | ALK | 115 (H) | 42 - 98 U/L | [facility] | | | PHOS-CHH | | | DEPARTMENT | | | | | | OF | | | | | | PATHOLOGY | | + + + + + + | AST-[facility] | 54 (H) | 15 - 41 U/L | [facility] | | | | | | DEPARTMENT | | | | | | OF | | | | | | PATHOLOGY | | + + + + + + | SODIUM-[facility] | 136 | 133 - 141 | [facility] | | | | | mmol/L | DEPARTMENT | | | | | | OF | | | | | | PATHOLOGY | | + + + + + + | POTASSIUM-C | 4.1 | 3.6 - 5.0 | [facility] | | | HH | | mmol/L | DEPARTMENT | | | | | | OF | | | | | | PATHOLOGY | | + + + + + + | CHLORIDE-CH | 105 (H) | 97 - 104 mmol/L | [facility] | | | H | | | DEPARTMENT | | | | | | OF | | | | | | PATHOLOGY | | + + + + + + | CO2 | 28 | 24 - 30 mmol/L | [facility] | | | TOTAL-CHH | | | DEPARTMENT | | | | | | OF | | | | | | PATHOLOGY | | + + + + + + | ALT-[facility] | 69 (H) | 13 - 48 U/L | [facility] | | | | | | DEPARTMENT | | | | | | OF | | | | | | PATHOLOGY | | + + + + + + + + | Specimen | + + | | + + + + + + + | Performing | Address | City/State/Zipcode | Phone Number | | Organization | | | | + + + + + | [facility] | [address] | [place] [address] | | | PATHOLOGY | [address] | | | + + + + + | [facility] | [address] | [place] [address] | | | PATHOLOGY | [address] | | | + + + + + [facility] - INR (PROTHROMBINTIME) (06/09/2007 2:28 PM PDT) + + + + + + | Component | Value | Ref Range | Performed | Pathologist | | | | | At | Signature | + + + + + + | INR-[facility] | 0.90 (L)Comment: | 0.98 - 1.20 INR | [facility] | | | | PT INR Therapeutic | | DEPARTMENT | | | | ranges for full | | OF | | | | anticoagulation: | | PATHOLOGY | | | | INR for | | | | | | Venous Thromboembolism | | | | | | | | | | | | (2.0-3.0)INR | | | | | | INR for most | | | | | | patients with mech. | | | | | | valves (2.5-3.5)INR | | | | + + + + + + + + | Specimen | + + | | + + + + + + + | Performing | Address | City/State/Zipcode | Phone Number | | Organization | | | | + + + + + | [facility] | [facility] | [place] [address] | | | PATHOLOGY | [address] | | | + + + + + | [facility] | [facility] | [place] [address] | | | PATHOLOGY | [address] | | | + + + + + [facility] - CBC AUTODIFF (06/09/2007 2:28 PM PDT) + + + + + + | Component | Value | Ref Range | Performed | Pathologist | | | | | At | Signature | + + + + + + | WHITE CELL | 6.9 | 3.4 - 10.0 K/cu | [facility] | | | COUNT - [facility] | | mm | DEPARTMENT | | | | | | OF | | | | | | PATHOLOGY | | + + + + + + | RED CELL | 4.36 | 3.80 - 5.20 | [facility] | | | COUNT - [facility] | | M/cu mm | DEPARTMENT | | | | | | OF | | | | | | PATHOLOGY | | + + + + + + | HEMOGLOBIN, | 14.4 | 12.2 - 15.0 | [facility] | | | BLOOD - | | g/dL | DEPARTMENT | | | CH[facility] | | | OF | | | | | | PATHOLOGY | | + + + + + + | HEMATOCRIT | 43.3 | 37.0 - 46.5 % | [facility] | | | - CHH | | | DEPARTMENT | | | | | | OF | | | | | | PATHOLOGY | | + + + + + + | MCV - [facility] | 99.3 (H) | 85.0 - 95.0 fL | [facility] | | | | | | DEPARTMENT | | | | | | OF | | | | | | PATHOLOGY | | + + + + + + | MCH - [facility] | 33.0 (H) | 29.0 - 32.0 pg | [facility] | | | | | | DEPARTMENT | | | | | | OF | | | | | | PATHOLOGY | | + + + + + + | MCHC - [facility] | 33.3 | 32.6 - 33.9 | [facility] | | | | | g/dL | DEPARTMENT | | | | | | OF | | | | | | PATHOLOGY | | + + + + + + | RDW-[facility] | 13.6 | 11.5 - 15.0 % | [facility] | | | | | | DEPARTMENT | | | | | | OF | | | | | | PATHOLOGY | | + + + + + + | PLATELET | 373 | 150 - 420 K/cu | [facility] | | | COUNT, | | mm | DEPARTMENT | | | BLOOD - CHH | | | OF | | | | | | PATHOLOGY | | + + + + + + | MPV-[facility] | 9.6 | 7.4 - 10.4 fL | [facility] | | | | | | DEPARTMENT | | | | | | OF | | | | | | PATHOLOGY | | + + + + + + | NEUTROPHIL | 66 (H) | 48 - 65 % | [facility] | | | (%) - CHH | | | DEPARTMENT | | | | | | OF | | | | | | PATHOLOGY | | + + + + + + | LYMPHOCYTE | 27 | 26 - 41 % | [facility] | | | (%) - CHH | | | DEPARTMENT | | | | | | OF | | | | | | PATHOLOGY | | + + + + + + | MID-RANGE | 7 | 7 - 15 % | [facility] | | | (%) - CHH | | | DEPARTMENT | | | | | | OF | | | | | | PATHOLOGY | | + + + + + + | NEUTROPHIL | 4.6 | 2.2 - 5.2 K/cu | [facility] | | | ABSOLUTE - | | mm | DEPARTMENT | | | CH[facility] | | | OF | | | | | | PATHOLOGY | | + + + + + + | LYMPHOCYTE | 1.9 | 1.6 - 2.6 K/cu | [facility] | | | ABSOLUTE - | | mm | DEPARTMENT | | | [facility] | | | OF | | | | | | PATHOLOGY | | + + + + + + | MID-RANGE | 0.5 | <2.1 K/cu mm | [facility] | | | ABSOLUTE - | | | DEPARTMENT | | | CH[facility] | | | OF | | | | | | PATHOLOGY | | + + + + + + + + | Specimen | + + | | + + + + + + + | Performing | Address | City/State/Zipcode | Phone Number | | Organization | | | | + + + + + | [facility] | [address] | [place] [address] | | | PATHOLOGY | [address] | | | + + + + + | [facility] | [address] | [place] [address] | | | PATHOLOGY | [address] | | | + + + + + US KIDNEY & BLADDER (06/09/2007 2:22 PM PDT) + + + + + + | Component | Value | Ref Range | Performed | Pathologist | | | | | At | Signature | + + + + + + | US KIDNEY & | Radiologist 1: CHELSEA, | | | | | BLADDER | Dina CHORenal | | | | | | ultrasound on 06/09/07 | | | | | | Comparison: CT scan of | | | | | | the abdomen from 11/14/05 | | | | | | and outside CTscan from | | | | | | 12/30/05 Findings: The | | | | | | right kidney | | | | | | demonstrates echogenic | | | | | | parenchyma. Itmeasures | | | | | | 8.2 x 3.7 x 4.3 cm. | | | | | | There is renal pelvic | | | | | | and calycealfluid, as | | | | | | seen on the prior CT | | | | | | scans. No masses, | | | | | | stones or cystsare | | | | | | identified. The left | | | | | | kidney is unremarkable | | | | | | and measures 9.3x 5.2 x | | | | | | 5 cm. There is no free | | | | | | fluid in the abdomen. | | | | | | Nohydroureter is | | | | | | identified.Impression: | | | | | | Echogenic right kidney | | | | | | with grade 4 | | | | | | hydronephrosis and | | | | | | corticalthinning. | | | | + + + + + + + + | Specimen | + + | | + + + +---------+ + + | Performing | Address | City/State/Zipcode | Phone Number | | Organization | | | | + +---------+ + + | [facility] | | | | | RADIOLOGY | | | | + +---------+ + + UA DIPSTICK ONLY, POC (06/09/2007 12:04 PM PDT) + +--------+ + + + | Component | Value | Ref Range | Performed | Pathologist | | | | | At | Signature | + +--------+ + + + | COLOR(UR) | Straw | | [facility] | | | | | | OF CARE | | | | | | TESTS | | + +--------+ + + + | APPEARANCE | Turbid | | [facility] | | | | | | OF CARE | | | | | | TESTS | | + +--------+ + + + | LEUKOCYTE | Small | Negative | [facility] | | | ESTERASE | | | OF CARE | | | | | | TESTS | | + +--------+ + + + | NITRITES | Neg | Negative | [facility] | | | | | | OF CARE | | | | | | TESTS | | + +--------+ + + + | UROBILINOGE | Norm | 0.2 - 1 ARIS | [facility] | | | N | | UNITS | OF CARE | | | | | | TESTS | | + +--------+ + + + | PROTEIN(LAB | Neg | mg/dL | [facility] | | | ) | | | OF CARE | | | | | | TESTS | | + +--------+ + + + | PH(UR) | 7.0 | 5 - 8.5 | [facility] | | | | | | OF CARE | | | | | | TESTS | | + +--------+ + + + | BLOOD | Mod | Negative | [facility] | | | | | | OF CARE | | | | | | TESTS | | + +--------+ + + + | SPECIFIC | 1.005 | 1.004 - 1.03 | [facility] | | | GRAVITY | | | OF CARE | | | | | | TESTS | | + +--------+ + + + | KETONES | Neg | Negative mg/dL | [facility] | | | | | | OF CARE | | | | | | TESTS | | + +--------+ + + + | BILIRUBIN | Neg | Negative | [facility] | | | | | | OF CARE | | | | | | TESTS | | + +--------+ + + + | GLUCOSE(UR) | Neg | Negative mg/dL | [facility] | | | | | | OF CARE | | | | | | TESTS | | + +--------+ + + + + + | Specimen | + + | Urine | + + + + + + + | Performing | Address | City/State/Zipcode | Phone Number | | Organization | | | | + + + + + | [facility] | [address] | [place], [place] | | | [place] [facility] | [facility] | [address] | | | TESTS | | | | + + + + + | [facility] | [address] | [place], [place] | | | TESTS | [facility] | [address] | | + + + + + documented in this encounter Visit Diagnoses + + | Diagnosis | + + | Hematuria | + + | Hydronephrosis | + + documented in this encounter"
--- OUTSIDE RECORDS SUMMARY | ~2019-11-08 | XMS | Encounter Summary ---
Demographics + + + | Address | [address] | | | [place] [address] | + + + | Home Phone | | + + + | Preferred Language | Unknown | + + + | Marital Status | Single | + + + | Yazdanism Affiliation | CHR | + + + | Race | White | + + + | Ethnic Group | Not or | + + + Author + + + | Author | [facility] | + + + | Organization | [facility] | + + + | Address | Unknown | + + + | Phone | Unavailable | + + + Support + + + + + | Name | Relationship | Address | Phone | + + + + + | Darius Fields | HELEN | [address] | | | | | [place] [address] | | + + + + + Care Team Providers + +------+ + | Care Conveyor Worker Name | Role | Phone | + +------+ + | Serena Barroso | PCP | | + +------+ + Encounter Details +--------+------+ + + + | Date | Type | Department | Care Team | Description | +--------+------+ + + + | 08/18/ | Lab | Laboratory at [facility] | | Renal Insufficiency | | 2007 | | [address] | | | | | | [place], [place] | | | | | | [address] | | | | | | [phone] | | | +--------+------+ + + + Social History + + [...] as of this encounter Plan of Treatment Not on filedocumented as of this encounter Procedures + +--------+ + + + | Procedure Name | Priori | Date/Time | Associated Diagnosis | Comments | | | ty | | | | + +--------+ + + + | [facility] - BASIC | Routin | 08/18/2008 | Renal | Results for this | | METABOLIC SET | e | 11:57 AM | Insufficiency | procedure are in the | | | | PDT | | results section. | + +--------+ + + + documented in this encounter Results [facility] - BASIC METABOLIC SET (08/18/2008 11:57 AM PDT) + +---------+ + + + | Component | Value | Ref Range | Performed | Pathologist | | | | | At | Signature | + +---------+ + + + | GLUCOSE-[facility] | 100 (H) | 60 - 99 mg/dL | [facility] | | | | | | DEPARTMENT | | | | | | OF | | | | | | PATHOLOGY | | + +---------+ + + + | UREA | 15 | 6 - 20 mg/dL | [facility] | | | NITROGEN-CH | | | DEPARTMENT | | | H | | | OF | | | | | | PATHOLOGY | | + +---------+ + + + | CREATININE- | 0.6 | 0.6 - 1.1 mg/dL | [facility] | | | [facility] | | | DEPARTMENT | | | | | | OF | | | | | | PATHOLOGY | | + +---------+ + + + | SODIUM-[facility] | 137 | 133 - 141 | [facility] | | | | | mmol/L | DEPARTMENT | | | | | | OF | | | | | | PATHOLOGY | | + +---------+ + + + | POTASSIUM-C | 4.8 | 3.6 - 5.0 | [facility] | | | HH | | mmol/L | DEPARTMENT | | | | | | OF | | | | | | PATHOLOGY | | + +---------+ + + + | CHLORIDE-CH | 98 | 97 - 104 mmol/L | [facility] | | | H | | | DEPARTMENT | | | | | | OF | | | | | | PATHOLOGY | | + +---------+ + + + | CO2 | 23 (L) | 24 - 30 mmol/L | [facility] | | | TOTAL-CHH | | | DEPARTMENT | | | | | | OF | | | | | | PATHOLOGY | | + +---------+ + + + | CALCIUM-[facility] | 9.8 | 8.8 - 10.9 | [facility] | | | | | mg/dL | DEPARTMENT | | | | | | OF | | | | | | PATHOLOGY | | + +---------+ + + + + + | Specimen | + + | | + + + + + + + | Performing | Address | City/State/Zipcode | Phone Number | | Organization | | | | + + + + + | [facility] | [address] | [place] [address] | | | PATHOLOGY | [address] | | | + + + + + | [facility] | [facility] | [facility] [place] [address] | | | PATHOLOGY | [address] | | | + + + + + documented in this encounter Visit Diagnoses + + | Diagnosis | + + | Renal insufficiency Unspecified disorder of kidney and ureter | + + documented in this encounter"
--- OUTSIDE RECORDS SUMMARY | ~2019-11-08 | XMS | Encounter Summary ---
Demographics + + + | Address | [address] | | | [place] [address] | + + + | Home Phone | | + + + | Preferred Language | Unknown | + + + | Marital Status | | + + + | Moravian Affiliation | Unknown | + + + | Race | Unknown | + + + | Ethnic Group | Unknown | + + + Author + + + | Author | [facility] | | | and [place] | + + + | Organization | [facility] | | | and [place] | + + + | Address | Unknown | + + + | Phone | Unavailable | + + + Support + + + + + | Name | Relationship | Address | Phone | + + + + + | Darius Diamond | ECON | [address] | | | | | , [address] | | + + + + + Care Team Providers + +------+ + | Care Historical Guide Name | Role | Phone | + +------+ + PCP | Unavailable | + +------+ + Encounter Details +--------+ + + + + | Date | Type | Department | Care Team | Description | +--------+ + + + + | 06/12/ | [facility] | [facility] | Jenny | | | 2006 | Encounter | [facility] | Sinan Greenfield MD [address] | | | | | [place] [address] | [place] | | | | | [place], [place] | [place] [address] | | | | | [address] | [phone] | | | | | [phone] | | | +--------+ + + + + Social History + +-------+ +--------+------+ | Tobacco Use | Types | Packs/Day | Years | Date | | | | | Used | | + +-------+ +--------+------+ | Never Assessed | | | | | + +-------+ +--------+------+ + + + | Sex Assigned at [...] | 12/02/ | Office | Gastroenterology | [facility], | | | 2019 | Visit | | CRISTHIAN Carbone [address] | | | | | | [address] | | | | | | [place] | | | | | | [address] | | | | | | | | +--------+---------+ + + + documented as of this encounter Visit Diagnoses Not on filedocumented in this encounter"
--- OUTSIDE RECORDS SUMMARY | ~2019-11-08 | XMS | Encounter Summary ---
Demographics + + + | Address | [address] | | | [place] [address] | + + + | Home Phone | | + + + | Preferred Language | Unknown | + + + | Marital Status | | + + + | Episcopal Affiliation | Unknown | + + + | Race | Unknown | + + + | Ethnic Group | Unknown | + + + Author + + + | Author | [facility] | | | and [place] | + + + | Organization | [facility] | | | and [place] | + + + | Address | Unknown | + + + | Phone | Unavailable | + + + Support + + + + + | Name | Relationship | Address | Phone | + + + + + | Darius Fields | HELEN | [address] | | | | | , [address] | | + + + + + Care Team Providers + +------+ + | Care Flask Handler Name | Role | Phone | + +------+ + | Francine Sanford NP | PCP | | + +------+ + Reason for Visit + + + | Reason | Comments | + + + | Surgery Appointment | | + + + Encounter Details +--------+ + + + + | Date | Type | Department | Care Team | Description | +--------+ + + + + | 02/20/ | Telephone | [facility] | Toi Gonzalez | Surgery Appointment | | 2018 | | [address] | MD [address] | | | | | [place], [place] | [place], [place] | | | | | [address] | [address] | | | | | [phone] | | | +--------+ + + + + Social History + + + +--------+------+ | Tobacco Use | Types | Packs/Day | Years | Date | | | | | Used | | + + + +--------+------+ | Current Every Day | Cigarettes | 0.3 | | | | Smoker | | | | | + + + +--------+------+ + +---+---+---+ | Smokeless Tobacco: | [...] | 12/02/ | Office | Gastroenterology | Sergio, | | | 2020 | Visit | | [facility] [address] | | | | | [address] | | | | | | [place] | | | | | | [phone] | | | | | | | | +--------+---------+ + + + documented as of this encounter Visit Diagnoses + + | Diagnosis | + + | 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
--- OUTSIDE RECORDS SUMMARY | ~2019-11-08 | XMS | Encounter Summary ---
Demographics + + + | Address | [address] | | | [place] [address] | + + + | Home Phone | | + + + | Preferred Language | Unknown | + + + | Marital Status | Single | + + + | Sabianism Affiliation | CHR | + + + | Race | White | + + + | Ethnic Group | Not or | + + + Author + + + | Author | [facility] | + + + | Organization | [facility] | + + + | Address | Unknown | + + + | Phone | Unavailable | + + + Support + + + + + | Name | Relationship | Address | Phone | + + + + + | Darius Fields | HELEN | [address] | | | | | [place] [address] | | + + + + + Care Team Providers + +------+ + | Care Logistics Service Representative Name | Role | Phone | + +------+ + | Serena Barroso | PCP | | + +------+ + Reason for Visit + + + | Reason | Comments | + + + | UTI - Urinary tract | | | infection | | + + + Encounter Details +--------+ + + + + | Date | Type | Department | Care Team | Description | +--------+ + + + + | 03/09/ | Telephone | Urology Adult | Kristie, | UTI - Urinary tract | | 2008 | | [address] | MD Reinaldo | infection | | | | Mailcode: [id number] | | | | | | [facility] | | | | | | and Healing, | | | | | | Building [address], | | | | | | Floor [place], [place] | | | | | | [address] | | | | | | [phone] | | | +--------+ + + + [...] filedocumented as of this encounter Visit Diagnoses Not on filedocumented in this encounter"
--- OUTSIDE RECORDS SUMMARY | ~2019-11-08 | XMS | Encounter Summary ---
Demographics + + + | Address | [address] | | | [place] [address] | + + + | Home Phone | | + + + | Preferred Language | Unknown | + + + | Marital Status | | + + + | Denominational Affiliation | Unknown | + + + | Race | Unknown | + + + | Ethnic Group | Unknown | + + + Author + + + | Author | [facility] | | | and [place] | + + + | Organization | [facility] | | | and [place] | + + + | Address | Unknown | + + + | Phone | Unavailable | + + + Support + + + + + | Name | Relationship | Address | Phone | + + + + + | Darius Diamond | HELEN | [address] | | | | | , [address] | | + + + + + Care Team Providers + +------+ + | Care Manager Web Application Name | Role | Phone | + +------+ + | Francine Sanford NP | PCP | | + +------+ + Reason for Visit + + + | Reason | Comments | + + + | New Patient | atrophy of kidney | + + + Evaluate & Treat (Routine) +--------+--------+ + + + + | Status | Reason | Specialty | Diagnoses / | Referred By | Referred To | | | | | Procedures | Contact | Contact | +--------+--------+ + + + + | Closed | | Urology | Diagnoses | Blue, | [facility] | | | | | Atrophy of | Karely Cruz, | Urology [address] | | | | | kidney | MD [address] | [address] | | | | | (terminal) | [place] | [place], | | | | | Disorder of | [place], | [place] [address] | | | | | kidney and | [place] | Phone: | | | | | ureter, | [address] | [phone] | | | | | unspecified | Phone: | Fax: | | | | | | [phone] | [phone] | | | | | | Fax: | | | | | | | [phone] | | +--------+--------+ + + + + Encounter Details +--------+---------+ + + + | Date | Type | Department | Care Team | Description | +--------+---------+ + + + | 01/22/ | Office | [facility] | Toi Gonzalez | Microscopic | | 2018 | Visit | [address] | MD Leighann [address] | hematuria (Primary | | | | [place], [place] | [place] | Dx); Pyuria | | | | [address] | [address] | | | | | [phone] | | | +--------+---------+ + + + Social History + + + +--------+------+ | Tobacco Use | Types | Packs/Day | Years | Date | | | | | Used | | + + + +--------+------+ | Current Every Day | Cigarettes | 1 | | | | Smoker | | | | | + + + +--------+------+ + +---+---+---+ | Smokeless Tobacco: | | | | | Never Used | | | | + +---+---+---+ + + | Comments: Every 3 days | + + + + +---------+ + | Alcohol Use [...] + + + | Blood Pressure | 146/93 | 01/22/2018 8:34 AM | | | | | PDT | | + + + + + | Pulse | 116 | 01/22/2018 8:34 AM | | | | | PDT | | + + + + + | Temperature | - | - | | + + + + + | Respiratory Rate | 16 | 01/22/2018 8:34 AM | | | | | PDT | | + + + + + | Oxygen Saturation | - | - | | + + + + + | Inhaled Oxygen | - | - | | | Concentration | | | | + + + + + | Weight | 80.4 kg (177 lb 4 | 01/22/2018 8:34 AM | | | | oz) | PDT | | + + + + + | Height | 162.6 cm (5' 4") | 01/22/2018 8:34 AM | | | | | PDT | | + + + + + | Body Mass Index | 30.42 | 01/22/2018 8:34 AM | | | | | PDT | | + + + + + documented in this encounter Progress Notes Toi Gonzalez MD - 01/22/2018 8:45 AM PDTFormatting of this note might be different f rom the original. Chief Complaint Patient presents with New Patient atrophy of kidney HPI Samreen Zaragoza is a 52 y.o. female patient of Francine Sanford NP here today for evaluat ion of atrophy of kidney. History obtained via the patient and her urologist, Dr. Blue. 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 Approximately 1988 patient un derwent revision surgery for the ileal conduit was taken down and the patient received a cat heterizable stoma and Sawant Pouch. She did relatively well however she did develop stones i n the right kidney. After endoscopic treatment of her stones patient describes that her cat heterizable stoma "broke down" and she underwent revision surgery in 2004 where the efferant arm of the sawant pouch was taken down and a new Loc tube was made. Since that time the pa jaycob has had continued problems with the anastomosis of the right kidney. She underwent ba lloon dilation however hydronephrosis progressed and now patient has significant renal atrop hy. Today patient states that she catheterizes her stoma approximate 9 times per day. She irri quinonez the pouch regularly and has never had stones in the pouch. Over the past several years the patient has had progressive right flank and abdominal pain as well as recurrent urinary tract infections. Her symptoms of UTI include right flank pain, decreased appetite, nausea, vomiting and feve r. Patient underwent recent nuclear medicine Lasix renogram which revealed virtually no draina ge from the right kidney and approximately 11% function. Patient also reports having an open gallbladder procedure done. Notes and records from Dr. Blue were reviewed and summarized below: Bin Jolley was seen today for new patient. Diagnoses and all orders for this visit: Microscopic hematuria - POCT Urinalysis Dipstick Automated - Urinalysis, Microscopic Only, with Culture if Indicated Pyuria - POCT Urinalysis Dipstick Automated - Urinalysis, Microscopic Only, with Culture if Indicated Plan It does appear patient would benefit from a nephrectomy. This would most likely decrease h er risk of infection as well as pain. Given the multiple surgeries that the patient has had she will require open nephrectomy. Most likely this case would be extremely difficult due to multiple surgeries, multiple adhesions as well as multiple kidney infections causing sign ificant scarring of the retroperitoneum. Will discuss case with Dr. Gagnon and tentatively p [place] for surgery in early February. 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 at 17 , at 18 CHOLECYSTECTOMY 2006 DILATION AND CURETTAGE OF UTERUS 2 times Sawant Pouch 2004 [facility] nicked bowel, hospitalized x3 weeks [facility] 1998 PMDD Family History: Family History Problem Relation Age of Onset Fibromyalgia Mother Heart disease Mother Cancer Maternal Grandmother Prostate cancer Maternal Grandfather Heart disease Maternal Grandfather Social History: Social History Social History Marital status: Spouse name: N/A Number of children: N/A Years of education: N/A Social History Main Topics Smoking status: Current Every Day Smoker Packs/day: 1.00 Types: Cigarettes Smokeless tobacco: Never Used Comment: Every 3 days Alcohol use No Drug use: No Sexual activity: Not Asked Other Topics Concern None Social History Narrative None Allergies Allergen Reactions Codeine Sulfate Iodinated Diagnostic Agents Latex Nsaids Penicillins Medications: Current Outpatient Prescriptions: ALBUTEROL SULFATE IN, NEBU, Disp: , Rfl: Ciprofloxacin (CIPRO PO), TABS (Patient not taking: Reported on 01/22/2018), Disp: , Rf l: diazepam (VALIUM) 10 MG tablet, , Disp: , Rfl: estradiol (ESTRACE) 1 mg tablet, , Disp: , Rfl: fluticasone (FLOVENT HFA) 44 mcg/puff inhaler, Inhale 2 puffs into the lungs 2 times d aily., Disp: , Rfl: fluticasone-salmeterol (ADVAIR DISKUS) 250-50 mcg/puff diskus inhaler, Inhale one puff by mouth twice daily (Patient not taking: Reported on 01/22/2018), Disp: , Rfl: Loratadine (CLARITIN PO), CAPS (Patient not taking: Reported on 01/22/2018), Disp: , Rf l: METHOCARBAMOL PO, TABS (Patient not taking: Reported on 01/22/2018), Disp: , Rfl: PREDNISONE PO, TABS (Patient not taking: Reported on 01/22/2018), Disp: , Rfl: PROMETHAZINE HCL PO, TABS - as needed (Patient not taking: Reported on 01/22/2018), Dis p: , Rfl: raNITIdine (ZANTAC) 150 MG capsule, Take 150 mg by mouth nightly., Disp: , Rfl: traZODone (DESYREL) 50 mg tablet, Take 50 mg by mouth nightly as needed. (Patient not taking: Reported on 01/22/2018), Disp: , Rfl: ROS Objective BP (!) 146/93 | Pulse 116 | Resp 16 | Ht 1.626 m (5' 4") | Wt 80.4 kg (177 lb 4 oz) | BMI 30.42 kg/m General Appearance: Alert, cooperative, no distress, appears stated age Head: Normocephalic, without obvious abnormality, atraumatic Eyes: PERRL, conjunctiva/corneas clear, EOM's intact Throat: Lips, mucosa, and tongue normal; no gross deformities, mmm Neck: Supple, symmetrical, no adenopathy Lungs: Regular, unlabored breathing MS No CVA tenderness, no spinal tenderness, no scoliosis present Abdomen: Soft, evidence of multiple surgeries, stoma shows no signs of infection. No jackie r evidence of abdominal hernia Extremities: Extremities normal, atraumatic, no cyanosis, clubbing, or edema Pulses: Radial pulses 2+ and symmetric Skin: Warm and dry Lymph nodes: Cervical and supraclavicular nodes normal Neurologic: Gait normal, CN 2-12 grossly intact; Strength and sensation grossly normal in b ilateral upper and lower extremities Data: I personally reviewed and interpreted CT scan images. Significant for very large dil ated right collecting system. There appears to very little renal parenchyma. The left kidn ey appears relatively normal., Patch seen in the left lower quadrant. No bladder is seen REVIEW OF SYSTEMS: [] All Negative Constitutional Symptoms: []Fever []Chills []Headache [x]Change in appetite [] Change in weight [] Change in energ y []Other: Neurological: []Tremors []Dizzy Spells []Numbness/Tingling []Seizures []Other: Endocrine: [x]Excessive thirst []Too hot [] Too cold [x]Tired/Sluggish Gastrointestinal: []Abdominal pain []Nausea/vomiting []Indigestion/heartburn []Change in stool size [] Stoner e in stool shape [] Change in stool color []Pain with swallowing []Other: Cardiovascular: []Chest Pain []Rapid heart rate []High blood pressure []Other: Integumentary: []Skin rash []Boils []Persistent itch []Other: Musculoskeletal: []Neck Pain []Joint swelling/pain []Back pain []Bone pain []Other: Respiratory: []Wheezing []Frequent cough []Shortness of breath []Other: Hematologic/Lymphatic: []Swollen glands []Blood clotting problems []Prior blood transfusions []Other: Psychologic: Are you generally satisfied with your life? yes Do you feel severely depressed? no Have you considered suicide? no Other: Habits: Do you smoke? Yes Results for orders placed or performed in visit on 01/22/18 POCT Urinalysis Dipstick Automated Result Value Ref Range Color, UA, POC Yellow Yellow, Light Yellow Clarity, UA, POC Cloudy Glucose, UA, POC Negative Negative Bilirubin, UA, POC Negative Negative Ketones, UA, POC Negative Negative, 100 mg/dL Specific Tatum, UA, POC 1.015 1.001 - 1.030 Blood, UA, POC Small (A) Negative pH, UA, POC 7.0 5.0, 6.0, 7.0, 8.0, 5.5, 6.5, 7.5 Protein, UA, POC 30 mg/dL (A) Negative Urobilinogen, UA, POC 0.2 0.2, Negative, Normal, < 0.2 mg/dL, 1 mg/dL, < 0.2 E.U./dl, 1.0 E.U./dL, 0.2 mg/dL Nitrite, UA, POC Negative Negative Leukocyte Esterase, UA, POC Large (A) Negative RED SUB UA ICTOTEST Negative REMARK No results found for: ENMANUEL Sanford NP's notes were reviewed in clinic today. No Follow-up on file.. CC: Francine Sanford NP, Karely Blue Urologist, [place], [facility] signed by Anton Gonzalez MD at 01/23/2018 1:32 PM PDTdocumented in this encounter Plan of Treatment +--------+---------+ + + + | Date | Type | Specialty | Care Team | Description | +--------+---------+ + + + | 12/02/ | Office | Gastroenterology | [facility], | | | 2020 | Visit | | CRISTHIAN Carbone [address] | | | | | | [address] | | | | | | [place] | | | | | | [address] | | | | | | | | +--------+---------+ + + + documented as of this encounter Procedures + +--------+ + + + | Procedure Name | Priori | Date/Time | Associated Diagnosis | Comments | | | ty | | | | + +--------+ + + + | URINALYSIS, | Routin | 01/22/2018 | Microscopic | Results for this | | MICROSCOPIC ONLY, | e | 8:33 AM | hematuria Pyuria | procedure are in the | | WITH CULTURE IF | | PDT | | results section. | | INDICATED | | | | | + +--------+ + + + | POCT URINALYSIS, | Routin | 01/22/2018 | Microscopic | Results for this | | AUTO WITH CONF | e | 8:33 AM | hematuria Pyuria | procedure are in the | | | | PDT | | results section. | + +--------+ + + + | CULTURE, URINE | Routin | 01/22/2018 | Microscopic | Results for this | | | e | 8:33 AM | hematuria Pyuria | procedure are in the | | | | PDT | | results section. | + +--------+ + + + | IMAGING REPORT - | | 12/15/2017 | | Results for this | | EXTERNAL SCAN | | 12:00 AM | | procedure are in the | | | | PST | | results section. | + +--------+ + + + | IMAGING REPORT - | | 11/14/2017 | | Results for this | | EXTERNAL SCAN | | 12:00 AM | | procedure are in the | | | | PST | | results section. | + +--------+ + + + documented in this encounter Results Culture, Urine (01/22/2018 8:33 AM PDT) + + + + + + | Component | Value | Ref Range | Performed | Pathologist | | | | | At | Signature | + + + + + + | Culture | >100,000 CFU/ml | | [facility] | | | | Streptococcus | | [facility] | | | | mitisComment: | | MEDICAL | | | | STREPTOCOCCUS VIRIDANS: | | CENTER - | | | | Streptoccus viridans | | LABORATORY | | | | group is susceptible to | | | | | | vancomycin. In spite | | | | | | of occasional reports of | | | | | | resistance in certain | | | | | | isolates, penicillin | | | | | | remains the drug of | | | | | | choice for the treatment | | | | | | of infections caused by | | | | | | streptococci, while | | | | | | cephalosporins and | | | | | | erythromycin serve as | | | | | | alternative choices for | | | | | | treatment. | | | | | | Susceptibility to | | | | | | tetracycline is variable | | | | | | among streptococcal | | | | | | strains. | | | | + + + + + + + + | Specimen | + + | Urine - Urine | | specimen obtained by | | clean catch | | procedure (specimen) | + + + + + + + | Performing | Address | City/State/Zipcode | Phone Number | | Organization | | | | + + + + + | [facility] | [address] | [place] | [phone] | | [facility] | | [address] | | | - LABORATORY | | | | + + + + + Urinalysis, Microscopic Only, with Culture if Indicated (01/22/2018 8:33 AM PDT) + + + + + + | Component | Value | Ref Range | Performed | Pathologist | | | | | At | Signature | + + + + + + | WBC UA | >100 (A) | 0 - 2 /HPF | [facility] | | | | | | [facility] | | | | | | MEDICAL | | | | | | CENTER - | | | | | | LABORATORY | | + + + + + + | WBC CLUMPS | Few (A) | None Seen /HPF | [facility] | | | UA | | | [facility] | | | | | | MEDICAL | | | | | | CENTER - | | | | | | LABORATORY | | + + + + + + | RBC UA | 2-5 (A) | 0 - 2 /HPF | [facility] | | | | | | [facility] | | | | | | MEDICAL | | | | | | CENTER - | | | | | | LABORATORY | | + + + + + + | SQUAMOUS | 2-5 (A) | 0 - 2 /LPF | [facility] | | | EPITHELIAL | | | [facility] | | | UA | | | MEDICAL | | | | | | CENTER - | | | | | | LABORATORY | | + + + + + + | BACTERIA UA | 2+ (A) | Negative /HPF | [facility] | | | | | | [facility] | | | | | | MEDICAL | | | | | | CENTER - | | | | | | LABORATORY | | + + + + + + | MUCUS UA | Present (A) | Negative /LPF | [facility] | | | | | | [facility] | | | | | | MEDICAL | | | | | | CENTER - | | | | | | LABORATORY | | + + + + + + | URINE | Urine Culture Set Up | | [facility] | | | COMMENT | | | [facility] | | | | | | MEDICAL | | | | | | CENTER - | | | | | | LABORATORY | | + + + + + + + + | Specimen | + + | Urine - Urine | | specimen obtained by | | clean catch | | procedure (specimen) | + + + + + + + | Performing | Address | City/State/Zipcode | Phone Number | | Organization | | | | + + + + + | [facility] | [address] | [place] | [phone] | | [facility] | | [address] | | | - LABORATORY | | | | + + + + + POCT Urinalysis Dipstick Automated (01/22/2018 8:33 AM PDT) + + + + + + | Component | Value | Ref Range | Performed | Pathologist | | | | | At | Signature | + + + + + + | Color, UA, | Yellow | Yellow, Light | | | | POC | | Yellow | | | + + + + + + | Clarity, | Cloudy | | | | | UA, POC | | | | | + + + + + + | Glucose, | Negative | Negative | | | | UA, POC | | | | | + + + + + + | Bilirubin, | Negative | Negative | | | | UA, POC | | | | | + + + + + + | Ketones, | Negative | Negative, 100 | | | | UA, POC | | mg/dL | | | + + + + + + | Specific | 1.015 | 1.001 - 1.030 | | | | Tatum, | | | | | | UA, POC | | | | | + + + + + + | Blood, UA, | Small (A) | Negative | | | | POC | | | | | + + + + + + | pH, UA, POC | 7.0 | 5.0, 6.0, 7.0, | | | | | | 8.0, 5.5, 6.5, | | | | | | 7.5 | | | + + + + + + | Protein, | 30 mg/dL (A) | Negative | | | | UA, POC | | | | | + + + + + + | Urobilinoge | 0.2 | 0.2, Negative, | | | | n, UA, POC | | Normal, < 0.2 | | | | | | mg/dL, 1 mg/dL, | | | | | | < 0.2 E.U./dl, | | | | | | 1.0 E.U./dL, | | | | | | 0.2 mg/dL | | | + + + + + + | Nitrite, | Negative | Negative | | | | UA, POC | | | | | + + + + + + | Leukocyte | Large (A) | Negative | | | | Esterase, | | | | | | UA, POC | | | | | + + + + + + | Reducing | | | | | | Substances, | | | | | | Urine | | | | | + + + + + + | Ictotest | | Negative | | | + + + + + + | Remark | | | | | + + + + + + + + | Specimen | + + | Urine | + + IMAGING REPORT - EXTERNAL SCAN (12/15/2017 12:00 AM PST) + + + | Narrative | Performed At | + + + | Ordered by an | | | unspecified provider. | | + + + IMAGING REPORT - EXTERNAL SCAN (11/14/2017 12:00 AM PST) + + + | Narrative | Performed At | + + + | Ordered by an | | | unspecified provider. | | + + + documented in this encounter Visit Diagnoses + + | Diagnosis | + + | Microscopic hematuria - Primary | + + | Pyuria Other nonspecific finding on examination of urine | + + documented in this encounter
--- OUTSIDE RECORDS SUMMARY | ~2019-11-08 | XMS | Encounter Summary ---
Demographics + + + | Address | [address] | | | [place] [address] | + + + | Home Phone | | + + + | Preferred Language | Unknown | + + + | Marital Status | | + + + | Hinduism Affiliation | Unknown | + + + | Race | Unknown | + + + | Ethnic Group | Unknown | + + + Author + + + | Author | [facility] | | | and [place] | + + + | Organization | [facility] | | | and [...] #3 | | | | | , [address] | | + + + + + Care Team Providers + +------+ + | Care Industrial Insulator Name | Role | Phone | + +------+ + PCP | Unavailable | + +------+ + Encounter Details +--------+ + + + + | Date | Type | Department | Care Team | Description | +--------+ + + + + | 10/21/ | Hospital | [facility] | Keya Mckeon, | | | 2006 | Encounter | MED [facility] EM[facility]ENCY | MD [address] | | | | | [facility] [address] | [address] [place] | | | | | [place] | [address] | | | | | [address] | | | | | | [phone] | | | +--------+ + + + [...] | 12/02/ | Office | Gastroenterology | [facility], | | | 2019 | Visit | | CRISTHIAN Carbone [address] | | | | | | [address] | | | | | | [place] | | | | | | [address] | | | | | | | | +--------+---------+ + + + documented as of this encounter Visit Diagnoses Not on filedocumented in this encounter"
--- OUTSIDE RECORDS SUMMARY | ~2019-11-08 | XMS | Encounter Summary ---
Demographics + + + | Address | [address] | | | [place] [address] | + + + | Home Phone | | + + + | Preferred Language | Unknown | + + + | Marital Status | | + + + | Faith Affiliation | Unknown | + + + | Race | Unknown | + + + | Ethnic Group | Unknown | + + + Author + + + | Author | [facility] | | | and [place] | + + + | Organization | [facility] | | | and [place] | + + + | Address | Unknown | + + + | Phone | Unavailable | + + + Support + + + + + | Name | Relationship | Address | Phone | + + + + + | Darius Fields | ECON | [address] | | | | | , [address] | | + + + + + Care Team Providers + +------+ + | Care Printer'S Devil Name | Role | Phone | + +------+ + PCP | Unavailable | + +------+ + Encounter Details +--------+ + + + + | Date | Type | Department | Care Team | Description | +--------+ + + + + | 07/24/ | Hospital | [facility] | | | | 2006 | Encounter | MED CTR EMER[facility]Y | | | | | | CENTER [address] | | | | | | [place] | | | | | | [address] | | | | | | [phone] | | | +--------+ + + + [...] | 12/02/ | Office | Gastroenterology | [facility], | | | 2020 | Visit | | CRISTHIAN Carbone [address] | | | | | | [address] | | | | | | [place] | | | | | | [address] | | | | | | | | +--------+---------+ + + + documented as of this encounter Visit Diagnoses Not on filedocumented in this encounter"
--- OUTSIDE RECORDS SUMMARY | ~2019-11-08 | XMS | Encounter Summary ---
Demographics + + + | Address | [address] | | | [place] [address] | + + + | Home Phone | | + + + | Preferred Language | Unknown | + + + | Marital Status | | + + + | Latter-Day Affiliation | Unknown | + + + | Race | Unknown | + + + | Ethnic Group | Unknown | + + + Author + + + | Author | [facility] | | | and [place] | + + + | Organization | [facility] | | | and [...] #3 | | | | | , [address] | | + + + + + Care Team Providers + +------+ + | Care Air Conditioning Installer Supervisor Name | Role | Phone | + +------+ + PCP | Unavailable | + +------+ + Encounter Details +--------+ + + + + | Date | Type | Department | Care Team | Description | +--------+ + + + + | 05/30/ | Hospital | [facility] | | | | 2006 | Encounter | MED CTR EMERGENCY | | | | | | CENTER [address] | | | | | | [place] | | | | | | [address] | | | | | | [phone] | | | +--------+ + + + [...] | 12/02/ | Office | Gastroenterology | [facility], | | | 2020 | Visit | | CRISTHIAN Carbone [address] | | | | | | [address] | | | | | | [place] | | | | | | [address] | | | | | | | | +--------+---------+ + + + documented as of this encounter Visit Diagnoses Not on filedocumented in this encounter"
--- OUTSIDE RECORDS SUMMARY | ~2019-11-08 | XMS | Encounter Summary ---
Demographics + + + | Address | [address] | | | [place] [address] | + + + | Home Phone | | + + + | Preferred Language | Unknown | + + + | Marital Status | | + + + | Restorationism Affiliation | Unknown | + + + | Race | Unknown | + + + | Ethnic Group | Unknown | + + + Author + + + | Author | [facility] | | | and [place] | + + + | Organization | [facility] | | | and [place] | + + + | Address | Unknown | + + + | Phone | Unavailable | + + + Support + + + + + | Name | Relationship | Address | Phone | + + + + + | Darius Diamond | HELEN | [address] | | | | | , [phone] | | + + + + + Care Team Providers + +------+ + | Care Maintenance Department Technician Name | Role | Phone | + +------+ + | Francine Sanford NP | PCP | | + +------+ + Reason for Referral Diagnostic/Screening (Routine) +--------+--------+ + + + + | Status | Reason | Specialty | Diagnoses / | Referred By | Referred To | | | | | Procedures | Contact | Contact | +--------+--------+ + + + + | Closed | | Radiology | Diagnoses | [place], | [address] | | | | | Recurrent | Toi | [place] | | | | | UTI | MD Leighann | [place], | | | | | Hematuria, | [address] | [place] [address] | | | | | unspecified | [place] | Phone: | | | | | type | [place], [place] | [phone] | | | | | Procedures | [id number] | Fax: | | | | | CT Urogram w | Phone: | [phone] | | | | | wo Contrast | [phone] | | | | | | CHG CT | Fax: | | | | | | SCAN,ABDOMEN | [phone] | | | | | | T AND | | | | | | | PELVIS,COMBO | | | +--------+--------+ + + + + Reason for Visit + + + | Reason | Comments | + + + | Pre-op Exam | | + + + | Follow-up | right kidney atrophy | + + + Encounter Details +--------+---------+ + + + | Date | Type | Department | Care Team | Description | +--------+---------+ + + + | 02/13/ | Office | [facility] | Toi Gonzalez | Recurrent UTI | | 2018 | Visit | [address] | MD Leighann [address] | (Primary Dx); | | | | [place], [place] | [place], [place] | Non-functioning | | | | [address] | [address] | kidney; Hematuria, | | | | [phone] | | unspecified type; | | | | | | Preop examination | +--------+---------+ + + + Social History [...] + + + | Blood Pressure | 134/90 | 02/13/2018 9:53 AM | | | | | PDT | | + + + + + | Pulse | 112 | 02/13/2018 9:53 AM | | | | | PDT | | + + + + + | Temperature | - | - | | + + + + + | Respiratory Rate | 18 | 02/13/2018 9:53 AM | | | | | PDT | | + + + + + | Oxygen Saturation | - | - | | + + + + + | Inhaled Oxygen | - | - | | | Concentration | | | | + + + + + | Weight | 81.3 kg (179 lb 3.7 | 02/13/2018 9:53 AM | | | | oz) | PDT | | + + + + + | Height | 162.6 cm (5' 4") | 02/13/2018 9:53 AM | | | | | PDT | | + + + + + | Body Mass Index | 30.77 | 02/13/2018 9:53 AM | | | | | PDT | | + + + + + documented in this encounter Patient Instructions Patient Instructions Renetta Morin RN - 02/13/2018 10:15 AM PDTPreoperative Instruct ions Your surgery with Dr. Gonzalez has been scheduled for February 26, 2018 at 7:45 AM at [facility]. Please report to [facility] no later than 6:15 AM. REMEMBER: NOTHING TO EAT OR DRINK AFTER MIDNIGHT February 25, 2018. Take all of your usual medications with a sip of water. You will need someone to drive you home after surgery. NO ASPIRIN OR ASPIRIN PRODUCTS, NO FISH OIL OR VITAMIN E FOR ONE WEEK PRIOR TO SURGERY. Ty lenol (acetaminophen) and ibuprofen is OK. You will need to get the following testing done prior to surgery: EKG, Labs. Please go to [facility] about one week prior to surgery to complete these tests. Call us at [phone] with any questions. [x] Pain management booklet provided to patient. documented in this encounter Progress Notes Toi Gonzalez MD - 02/13/2018 10:15 AM PDTFormatting of this note might be different f rom the original. Chief Complaint Patient presents with Pre-op Exam Follow-up right kidney atrophy HPI Samreen Zaragoza is a 52 y.o. female patient of Francine Sanford NP here today for a follow up and Pre- Op exam for right kidney atrophy. History of chronic right flank and abdominal pain as well as recurrent episodes of pyelonep hritis. 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 Copied from prior note Today patient states that she catheterizes her [...] Dr. Blue were reviewed and summarized below: Assessment Samreen was seen today for pre-op exam and follow-up. Diagnoses and all orders for this visit: Recurrent UTI - CT Urogram w wo Contrast; Future Non-functioning kidney Hematuria, unspecified type - CT Urogram w wo Contrast; Future Other orders - predniSONE (DELTASONE) 10 mg tablet; Take 1 pill [address], then 1 pill [address] then 1 pill [address] - diphenhydrAMINE (BENADRYL) 25 MG capsule; Take 1 pill [address] scan Plan Patient has elected to undergo a right nephrectomy. Discussed with the patient that due to her previous surgeries an open approach would need to be made. We'll order CT scan of the abdomen and pelvis with contrast to better evaluate her anatomy and surgical planning. Idea lly I would like to stay as far away from her edwards pouch. We discussed risks including ernst l injury, fistula, sepsis, hemorrhage, hernia and need for further procedures. We discussed that because of her multiple abdominal surgeries she is at a very high risk of potential bowel injury and may even need a colostomy. We'll obtain preoperative labs as well as an EKG. 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 at 17 , at 18 CHOLECYSTECTOMY 2006 DILATION AND CURETTAGE OF UTERUS 2 times Edwards Pouch 2005 [facility] nicked bowel, hospitalized x3 weeks SANCHEZ [...] ALBUTEROL SULFATE IN, NEBU, Disp: , Rfl: diphenhydrAMINE (BENADRYL) 25 MG capsule, Take 1 pill [address] scan, Disp: 1 c apsule, Rfl: 2 fluticasone (FLOVENT HFA) 44 mcg/puff inhaler, Inhale 2 puffs into the lungs 2 times d aily., Disp: , Rfl: predniSONE (DELTASONE) 10 mg tablet, Take 1 pill [address], then 1 pill [address] then 1 pill [address], Disp: 3 tablet, Rfl: 0 raNITIdine (ZANTAC) 150 MG capsule, Take 150 mg by mouth nightly., Disp: , Rfl: ROS Gen.: No fever no chills GI: No nausea no vomiting Pulmonary: No wheezing or coughing Cardio: No chest pain or shortness of breath Objective BP 134/90 | Pulse 112 | Resp 18 | Ht 1.626 m (5' 4") | Wt 81.3 kg (179 lb 3.7 oz) | BM I 30.77 kg/m General Appearance: Alert, cooperative, no distress, [...] left lower quadrant. No bladder is seen Results for orders placed or performed in visit on 01/22/18 Culture, Urine Result Value Ref Range Culture >100,000 CFU/ml Streptococcus mitis Urinalysis, Microscopic Only, with Culture if Indicated Result Value Ref Range WBC UA >100 (A) 0 - 2 /HPF WBC CLUMPS UA Few (A) None Seen /HPF RBC UA 2-5 (A) 0 - 2 /HPF SQUAMOUS EPITHELIAL UA 2-5 (A) 0 - 2 /LPF BACTERIA UA 2+ (A) Negative /HPF MUCUS UA Present (A) Negative /LPF URINE COMMENT Urine Culture Set Up POCT Urinalysis Dipstick Automated Result Value Ref Range Color, UA, POC Yellow Yellow, Light Yellow Clarity, UA, POC Cloudy Glucose, UA, POC Negative Negative Bilirubin, UA, POC Negative Negative Ketones, UA, POC Negative Negative, 100 mg/dL Specific [place], UA, POC 1.015 1.001 - 1.030 Blood, [...] CC: Francine Sanford NP, Karely Blue Urologist, [place], [facility] signed by Anton Gonzalez MD at 02/13/2018 11:35 AM PDTdocumented in this encounter Plan of Treatment +--------+---------+ + + + | Date | Type | Specialty | Care Team | Description | +--------+---------+ + + + | 12/02/ | Office | Gastroenterology | [facility], | | | 2020 | Visit | | CRISTHIAN Carbone [address] | | | | | | [address] | | | | | | [place] | | | | | | [address] | | | | | | | | +--------+---------+ + + + documented as of this encounter Results CT Urogram w wo Contrast (02/17/2018 11:39 AM PDT) + + | Specimen | + + | | + + + + + | Narrative | Performed At | + + + | CT UROGRAM W WO CONTRAST 02/17/2018 11:19 AM HISTORY: Hematuria. | [facility] | | COMPARISON: CT scans 07/23/2007, 06/20/2007. PROTOCOL: Axial | | | images of the abdomen and pelvis were obtained before and after | | | administration of 125 mL Omnipaque 350. Coronal and sagittal | | | reformations were acquired. FINDINGS: Heart size is normal. | | | Minimal atelectasis are in the lung bases. There is diffuse | | | low-attenuation of the liver suggesting fatty infiltration. | | | Cholecystectomy clips are seen. Biliary ducts are unremarkable. | | | The spleen is unremarkable. The pancreas demonstrates normal | | | parenchyma and a normal pancreatic duct. Adrenal glands are normal. | | | On the precontrast images, prominent calcifications are noted of | | | the right kidney including a large staghorn calculus inferiorly | | | measuring up to 5.3 cm. At least 3 cysts are seen with the largest | | | measuring 2.0 cm. Again visualized is severe right hydronephrosis and | | | hydroureter. The anastomosis between the right ureter and the right | | | lower quadrant ileal conduit is narrowed (image 68 on the sagittal | | | reconstruction views). The left kidney and visualized ureter are | | | normal. A right ileal conduit is observed that becomes filled with | | | contrast on the postcontrast images. There are adjacent clips. | | | Stomach, small bowel, and terminal ileum are normal. The appendix is | | | not seen. The right colon is surgically absent. There are sutures in | | | the mid transverse colon. There is moderate atherosclerosis of | | | the aorta. Mild atherosclerosis is seen of the iliac arteries. There | | | is no significant abnormality in the portal veins, mesenteric veins, | | | or systemic veins. No enlarged lymph nodes are visualized within | | | the omentum or retroperitoneum. There is no evidence for ascites | | | or free air. There has been previous resection of the bladder with | | | adjacent clips. The uterus is surgically absent. Body wall | | | soft tissue structures are normal otherwise. Hypoplasia of the | | | anterior pelvic arch is observed consistent with history of bladder | | | exstrophy. IMPRESSION - Prominent calcifications of the right | | | kidney including a large staghorn calculus inferiorly measuring up to | | | 5.3 cm. Stable severe right hydronephrosis and hydroureter. The | | | anastomosis between the right ureter and the right lower quadrant | | | ileal conduit is narrowed. Prior resection of bladder with | | | hypoplasia of the anterior pelvic arch consistent with history of | | | bladder exstrophy. Fatty liver. Dictated and Signed by: Yusuf | | | MD Juan Manuel Electronically signed: 02/17/2018 1:43 PM | | + + + + + | Procedure Note | + + | Nura Rad Results In - 02/17/2018 1:[address] UROGRAM W WO CONTRAST 02/17/2018 | | 11:19 AMHISTORY: Hematuria.COMPARISON: CT scans 07/23/2007, 06/20/2007.PROTOCOL: Axial | | images of the abdomen and pelvis were obtained before and afteradministration of 125 mL | | Omnipaque 350. Coronal and sagittal reformations wereacquired.FINDINGS:Heart size is | | normal. Minimal atelectasis are in the lung bases.There is diffuse low-attenuation of | | the liver suggesting fatty infiltration.Cholecystectomy clips are seen. Biliary ducts | | are unremarkable.The spleen is unremarkable. The pancreas demonstrates normal parenchyma | | and anormal pancreatic duct. Adrenal glands are normal.On the precontrast images, | | prominent calcifications are noted of the rightkidney including a large staghorn | | calculus inferiorly measuring up to 5.3 cm. Atleast 3 cysts are seen with the largest | | measuring 2.0 cm. Again visualized issevere right hydronephrosis and hydroureter. The | | anastomosis between the rightureter and the right lower quadrant ileal conduit is | | narrowed (image 68 on thesagittal reconstruction views).The left kidney and visualized | | ureter are normal.A right ileal conduit is observed that becomes filled with contrast on | | thepostcontrast images. There are adjacent clips.Stomach, small bowel, and terminal | | ileum are normal. The appendix is not seen.The right colon is surgically absent. There | | are sutures in the mid transversecolon.There is moderate atherosclerosis of the aorta. | | Mild atherosclerosis is seen ofthe iliac arteries. There is no significant abnormality | | in the portal veins,mesenteric veins, or systemic veins. No enlarged lymph nodes are | | visualized within the omentum or retroperitoneum.There is no evidence for ascites or | | free air.There has been previous resection of the bladder with adjacent clips.The uterus | | is surgically absent.Body wall soft tissue structures are normal otherwise. Hypoplasia | | of theanterior pelvic arch is observed consistent with history of bladder | | exstrophy.IMPRESSION -Prominent calcifications of the right kidney including a large | | staghorn calculusinferiorly measuring up to 5.3 cm.Stable severe right hydronephrosis | | and hydroureter. The anastomosis between theright ureter and the right lower quadrant | | ileal conduit is narrowed.Prior resection of bladder with hypoplasia of the anterior | | pelvic archconsistent with history of bladder exstrophy. Fatty liver.Dictated and Signed | | by: Yusuf Zambrano MD Electronically signed: 02/17/2018 1:43 PM | |postcontrast images. There are adjacent clips. | | | |Stomach, small bowel, and terminal ileum are normal. The appendix is not seen. | |The right colon is surgically absent. There are sutures in the mid transverse | |colon. | | | |There is moderate atherosclerosis of the aorta. Mild atherosclerosis is seen of | |the iliac arteries. There is no significant abnormality in the portal veins, | |mesenteric veins, or systemic veins. | | | |No enlarged lymph nodes are visualized within the omentum or retroperitoneum. | | | |There is no evidence for ascites or free air. | | | |There has been previous resection of the bladder with adjacent clips. | | | |The uterus is surgically absent. | | | |Body wall soft tissue structures are normal otherwise. Hypoplasia of the | |anterior pelvic arch is observed consistent with history of bladder exstrophy. | | | |IMPRESSION - | |Prominent calcifications of the right kidney including a large staghorn calculus | |inferiorly measuring up to 5.3 cm. | | | |Stable severe right hydronephrosis and hydroureter. The anastomosis between the | |right ureter and the right lower quadrant ileal conduit is narrowed. | | | |Prior resection of bladder with hypoplasia of the anterior pelvic arch | |consistent with history of bladder exstrophy. | | | |Fatty liver. | | | |Dictated and Signed by: Yusuf Zambrano MD | | Electronically signed: 02/17/2018 1:43 PM | + + + +---------+ + + | Performing | Address | City/State/Zipcode | Phone Number | | Organization | | | | + +---------+ + + | [facility] | | | | + +---------+ + + documented in this encounter Visit Diagnoses + + | Diagnosis | + + | Recurrent UTI - Primary Urinary tract infection, site not specified | + + | Non-functioning kidney Unspecified disorder of kidney and ureter | + + | Hematuria, unspecified type | + + | Preop examination Preoperative examination, unspecified | + + documented in this encounter
--- OUTSIDE RECORDS SUMMARY | ~2019-11-08 | XMS | Encounter Summary ---
Demographics + + + | Address | [address] | | | [place] [address] | + + + | Home Phone | | + + + | Preferred Language | Unknown | + + + | Marital Status | Single | + + + | Evangelical Affiliation | CHR | + + + | Race | White | + + + | Ethnic Group | Not or | + + + Author + + + | Author | [facility] | + + + | Organization | [facility] | + + + | Address | Unknown | + + + | Phone | Unavailable | + + + Support + + + + + | Name | Relationship | Address | Phone | + + + + + | Darius Fields | HELEN | [address] | | | | | [place] [address] | | + + + + + Care Team Providers + +------+ + | Care Anode Worker Name | Role | Phone | + +------+ + | Rona Lyons MD | PCP | | + +------+ + Reason for Visit + + + | Reason | Comments | + + + | Hospital Admission | Patient needs reservation scheduled into the [facility] 06/10/07 | + + + Encounter Details +--------+ + + + + | Date | Type | Department | Care Team | Description | +--------+ + + + + | 06/09/ | Telephone | Urology Adult | Kristie, | Hospital Admission | | 2006 | | [address] | MD [place] | (Patient needs | | | | Mailcode: [id number] | | reservation | | | | [facility] | | scheduled into the | | | | and Healing, | | [facility] tom[facility] | | | | [address] | | 06/10/07) | | | | Floor [place], [place] | | | | | | [address] | | | | | | [phone] | | | +--------+ + + + [...]
--- OUTSIDE RECORDS SUMMARY | ~2019-11-08 | XMS | Encounter Summary ---
Demographics + + + | Address | [address] | | | [place] [address] | + + + | Home Phone | | + + + | Preferred Language | Unknown | + + + | Marital Status | Single | + + + | Sikh Affiliation | CHR | + + + | Race | White | + + + | Ethnic Group | Not or | + + + Author + + + | Author | [facility] | + + + | Organization | [facility] | + + + | Address | Unknown | + + + | Phone | Unavailable | + + + Support + + + + + | Name | Relationship | Address | Phone | + + + + + | Darius Fields | HELEN | [address] | | | | | [place] [address] | | + + + + + Care Team Providers + +------+ + | Care Duster Tender Name | Role | Phone | + +------+ + | Serena Barroso | PCP | | + +------+ + Reason for Visit + + + | Reason | Comments | + + + | Follow-up in | | | outpatient clinic | | + + + Encounter Details +--------+---------+ + + + | Date | Type | Department | Care Team | Description | +--------+---------+ + + + | 06/29/ | Office | Urology Oncology | [place], | Status of Other | | 2008 | Visit | [address] | MD Reinaldo | Artificial Opening | | | | Mailcode: [id number] | | of Urinary Tract; | | | | [place] [facility] | | Back Pain; | | | | and Healing, | | Hydronephrosis | | | | Building | | | | | | Floor [place], [place] | | | | | | [address] | | | | | | [phone] | | | +--------+---------+ + + + [...] + + + | Blood Pressure | 138/90 | 06/29/2009 3:39 PM | | | | | PDT | | + + + + + | Pulse | 117 | 06/29/2009 3:39 PM | | | | | PDT [...] + + + + | Weight | 58.5 kg (129 lb) | 06/29/2009 3:39 PM | | | | | PDT | | + + + + + | Height | - | - | | + + + + + | Body Mass Index | 22.14 | 05/21/2007 3:50 PM | | | | | PDT | | + + + + + documented in this encounter Progress Notes Reinaldo Flowers MD - 06/29/2009 4:24 PM PDTI saw the patient with Dr. Kary Lofton . I was present with the resident during the history and physical examination. I agree with the resident's assessment and plan as documented in the note which I have presonally edited. Lacy Flowers M.D. radial saw operator Section of Urologic Oncology Division of Urology & Renal Transplantation [facility] Kary Caro MD - 06/29/2009 3:50 PM PDT UROLOGIC ONCOLOGY CLINIC- FOLLOW-UP Identification: Samreen Zaragoza is a 44 year old woman with a history of [...] t. Stent removed ast last appointment Jul 2007 without resolution of her pain symtpoms. She also had a MAG-3 demonstrating 20% function on the righthe past, although interpretation is hampered by the presence of the continent diversion in front of the kidney. She now returns for follow-up and evaluation for her chronic pain.. Subjective: Ms. Zaragoza reports that she is still in pain. She has not had a culture positive UTI sin ce her last visit. She is very interested in uncovering the etiology of her pain. She stat es her pain is most common with stretching or twisting of her back. Denies change in her ur ine odor or color. ROS: Denies bone pain, chest pain, shortness of breath, weight loss, fatigue, or other pain . Current outpatient prescriptions Medication Sig ADVAIR DISKUS IN None Entered ALBUTEROL IN None Entered Catheter 14 Fr-16" Misc.(Non-Drug; Combo Route) Misc M[place] BRAND or [place] ONLY Please - Use as directed cyclobenzaprine (FLEXERIL) 10 mg Oral Tablet Take 10 mg by mouth three times daily as n eeded. Do not use longer than 2-3 weeks. diazepam 5 mg Oral Tablet take 1 tablet (5 mg) by oral route 2 times per day ESTRACE 1 MG TAB take 1 tablet (1mg) by oral route once daily for 21 days off for 7 day s, repeat cycle LUBRICANTS TOPICAL [place] Jelly- Use as directed MACROBID ORAL daily nitrofurantoin macro crystals (MACRODANTIN) 100 mg Oral Capsule take 1 capsule (100 mg) by oral route once a day TRAMADOL HCL (ULTRAM ORAL) Take by mouth as needed. Trazodone HCl 50 mg Oral Tablet 1x daily Physical Examination BP 138/90 | Pulse 117 | Wt 58.514 kg (129 lb) Gen: appears well, in NAD Abdomen: soft, NT/ND, multiple healed scars Continent channel opens right abdomen Flank: Non-tender Extr: No edema Neuro: Non-focal. Images: CT Urogram 06/29/2009 FINDINGS: ABDOMEN: Visualized lung bases are clear. Liver is normal in appearance without focal lesi on. Gallstones are present without complication. There is no biliary duct dilation. Pancr eas, spleen, and adrenal glands are within normal limits. Focal left anterior interpolar renal scarring with subjacent traction caliectasis is noted. Left kidney is otherwise normal in appearance without focal lesion. A single punctate nono bstructing medial left upper pole calculus is identified image 29. Right kidney is globally atrophic with multifocal scarring and cortical thinning and global pelvicaliectasis and segmental ureterectasis extending to the right lower quadrant continen t urinary diversion/pouch. There are no right-sided urinary tract calculi. A stable right l ower pole exophytic cyst measures 1.1 cm. There is anatomic narrowing at the right ureteral neocystostomy anastomosis, of uncertain functional significance, though the degree of right- sided ureterectasis and pelvocaliectasis in the excretory phase appears worse when compared to the prior outside study. Lasix washout nuclear medicine study or an antegrade pyelogram may be better able to access the functional significance. Nephrograms are symmetric. There is symmetric early excretion into the collecting systems.. No stones are noted within the pouch. 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 Ileocolic anastomosis noted in the right abdomen. There is no bowel obstruction. No asc ites or adenopathy is present. There is no destructive bone lesion. 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 Plan: This is a difficult situation. Samreen has chronic pain from many etiologies with an atrophi c right kidney with MAG-3 demonstrating 20% function. Atrophy is not an etiology for pain. Obstruction is-- which she does not have. She has had the same level of hydronephrosis ni r since I have known her (past several years) and there is documentation of its presence dorothy ing back more than 10 years. She also does not have reflux as demonstrated on the pouchogram from her last visit. We have systematically ruled out known etiologies for renal pain: she does not have reflux, she has not stone load, she has no surrounding stranding on CT scan, CT scan shows filtrati on and drainage of her right kidney. Percutaneous nephrostomy with antegrade balloon dilati on did not help to alleviate her symptoms. In addition, her symptoms (pain with reaching an d stretching, with alleviation by adding pressure) are not consistent with kidney visceral p ain, but with musculoskeletal pain. Given these factors and that she still has significant f unctioning parenchyma I am not willing to proceed with a nephrectomy. The above information was discussed with Samreen, who expresses an understanding at this time . She would like us to forward this information to her medication specialist. We will see her b ack in 6 months with a renal ultrasound to evaluate the chronicity of her known hydronephros is. documented in this encounter Plan of Treatment Not on filedocumented as of this encounter Visit Diagnoses + + | Diagnosis | + + | Status of other artificial opening of urinary tract | + + | Back pain Backache, unspecified | + + | Hydronephrosis | + + documented in this encounter
--- OUTSIDE RECORDS SUMMARY | ~2019-11-08 | XMS | Encounter Summary ---
Demographics + + + | Address | [address] | | | [place] [address] | + + + | Home Phone | | + + + | Preferred Language | Unknown | + + + | Marital Status | | + + + | Adventist Affiliation | Unknown | + + + | Race | Unknown | + + + | Ethnic Group | Unknown | + + + Author + + + | Author | [facility] | | | and [place] | + + + | Organization | [facility] | | | and [...] #3 | | | | | , [address] | | + + + + + Care Team Providers + +------+ + | Care E/M Engineer Name | Role | Phone | + +------+ + PCP | Unavailable | + +------+ + Encounter Details +--------+ + + + + | Date | Type | Department | Care Team | Description | +--------+ + + + + | 04/16/ | Hospital | [facility] | | | | 2006 | Encounter | [facility] | | | | | | CENTER [address] | | | | | | [place] | | | | | | [address] | | | | | | [phone] | | | +--------+ + + + [...] | 12/02/ | Office | Gastroenterology | [facility], | | | 2020 | Visit | | CRISTHIAN Carbone [address] | | | | | | [address] | | | | | | [place] | | | | | | [address] | | | | | | | | +--------+---------+ + + + documented as of this encounter Visit Diagnoses Not on filedocumented in this encounter"
--- OUTSIDE RECORDS SUMMARY | ~2019-11-08 | XMS | Encounter Summary ---
Demographics + + + | Address | [address] | | | [place] [address] | + + + | Home Phone | | + + + | Preferred Language | Unknown | + + + | Marital Status | | + + + | Zoroastrian Affiliation | Unknown | + + + | Race | Unknown | + + + | Ethnic Group | Unknown | + + + Author + + + | Author | [facility] | | | and [place] | + + + | Organization | [facility] | | | and [place] | + + + | Address | Unknown | + + + | Phone | Unavailable | + + + Support + + + + + | Name | Relationship | Address | Phone | + + + + + | Darius Diamond | ECON | [address] | | | | | , [address] | | + + + + + Care Team Providers + +------+ + | Care Press Department Manager Name | Role | Phone | + +------+ + PCP | Unavailable | + +------+ + Encounter Details +--------+ + + + + | Date | Type | Department | Care Team | Description | +--------+ + + + + | 05/08/ | Hospital | [facility] | | | | 2006 | Encounter | MED CTR LABORATORY | | | | | | [address] | | | | | | [place] | | | | | | [address] | | | | | | [phone] | | | +--------+ + + + [...] | 12/02/ | Office | Gastroenterology | [facility], | | | 2020 | Visit | | CRISTHIAN Carbone [address] | | | | | | [address] | | | | | | [place] | | | | | | [address] | | | | | | | | +--------+---------+ + + + documented as of this encounter Visit Diagnoses Not on filedocumented in this encounter"
--- OUTSIDE RECORDS SUMMARY | ~2019-11-08 | XMS | Clinical Summary ---
Demographics + + + | Address | [address] | | | [address] | | | [place] [address] | + + + | Home Phone | | + + + | Preferred Language | Unknown | + + + | Marital Status | | + + + | Restoration Affiliation | Unknown | + + + | Race | Unknown | + + + | Ethnic Group | Unknown | + + + Author + + + | Author | [facility] (Historical as of | | | 06-12-19) | + + + | Organization | [facility] (Historical as of | | | 06-12-19) | + + + | Address | Unknown | + + + | Phone | Unavailable | + + + Support + + +---------+ + | Name | Relationship | Address | Phone | + + +---------+ + | Kathrine Salazar | ECON | Unknown | | + + +---------+ + Care Team Providers + +------+ + | Care Hull Outfit Supervisor Name | Role | Phone | [...]
--- OUTSIDE RECORDS SUMMARY | ~2019-11-08 | XMS | Encounter Summary ---
Demographics + + + | Address | [address] | | | [place] [address] | + + + | Home Phone | | + + + | Preferred Language | Unknown | + + + | Marital Status | Single | + + + | Anglican Affiliation | CHR | + + + | Race | White | + + + | Ethnic Group | Not or | + + + Author + + + | Author | [facility] | + + + | Organization | [facility] | + + + | Address | Unknown | + + + | Phone | Unavailable | + + + Support + + + + + | Name | Relationship | Address | Phone | + + + + + | Darius Fields | HELEN | [address] | | | | | [place] [address] | | + + + + + Care Team Providers + +------+ + | Care Sculpture Conservator Name | Role | Phone | + +------+ + | Rona Lyons MD | PCP | | + +------+ + Encounter Details +--------+ + + + + | Date | Type | Department | Care Team | Description | +--------+ + + + + | 12/25/ | Results | [facility]rology [facility] | Kristie, | | | 2005 | Only | [address] | MD Reinaldo | | | | | Loop Mailcode: [id number] | | | | | | Physician's | | | | | | [address] | | | | | | [place], [place] | | | | | | [address] | | | | | | [phone] | | | +--------+ + + + [...] as of this encounter Plan of Treatment + +---------+--------+ + + | Name | Type | Priori | Associated Diagnoses | Date/Time | | | | ty | | | + +---------+--------+ + + | GENERAL OUTSIDE | Imaging | Routin | | 12/25/2005 12:00 AM | | FILMS | | e | | PST | + +---------+--------+ + + | CT OUTSIDE FILMS | Imaging | Routin | | 12/30/2005 12:00 AM | | | | e | | PST | + +---------+--------+ + + documented as of this encounter Visit Diagnoses Not on filedocumented in this encounter"
--- OUTSIDE RECORDS SUMMARY | ~2019-11-08 | XMS | Encounter Summary ---
Demographics + + + | Address | [address] | | | [place] [address] | + + + | Home Phone | | + + + | Preferred Language | Unknown | + + + | Marital Status | Single | + + + | Advent Affiliation | CHR | + + + | Race | White | + + + | Ethnic Group | Not or | + + + Author + + + | Author | [facility] | + + + | Organization | [facility] | + + + | Address | Unknown | + + + | Phone | Unavailable | + + + Support + + + + + | Name | Relationship | Address | Phone | + + + + + | Darius Fields | HELEN | [address] | | | | | [place] [address] | | + + + + + Care Team Providers + +------+ + | Care Southeast Regional Sales Manager Name | Role | Phone | + +------+ + PCP | Unavailable | + +------+ + Reason for Visit + + + | Reason | Comments | + + + | Hearing loss | rule out hearing loss | + + + Encounter Details +--------+---------+ + + + | Date | Type | Department | Care Team | Description | +--------+---------+ + + + | 11/12/ | Office | Otolaryngology | Racheal Rodriguez, | OBSERVATION FOR | | 2005 | Visit | Audiology Services | AuD,CCC-A [address] | UNSPECIFIED | | | | at [facility] [address] | SUSPECTED CONDITION | | | | [address] | [place] [address] | (Primary Dx) | | | | Mailcode: [id number] | [phone] | | | | | [facility] | | | | | | [place], [place] | | | | | | [address] | | | | | | [phone] | | | +--------+---------+ + + + Social History + +-------+ [...] + + documented as of this encounter Progress Notes Carolina Rojo CCC-A - 11/12/2005 4:28 PM PSTPt seen in Audiology for hearing test to rule out aminoglycoside hearing loss. She reports a history of hearing loss on here way up the hens[place] and a feeling of fullness, Au. She feels that her hearing is gradually improving. Audiometric results revealed normal hearing sensitivity, Au. Speech testing was not done b ecause a portable screener was used to test in a quiet room. A follow -up hearing test is recommended in two months to monitor hearing.Electronically si gned by RADHA Grullon at 11/12/2005 4:28 PM PSTdocumented in this encounter Plan of Treatment + + +--------+ + + | Name | Type | Priori | Associated Diagnoses | Order Schedule | | | | ty | | | + + +--------+ + + | TN AUDIOMETRY, AIR & | Procedures | Routin | Observation For | Ordered: 11/12/2005 | | BONE | | e | Unspecified | | | | | | Suspected Condition | | + + +--------+ + + documented as of this encounter Visit Diagnoses + + | Diagnosis | + + | Observation for unspecified suspected condition - Primary | + + documented in this encounter"
--- OUTSIDE RECORDS SUMMARY | ~2019-11-08 | XMS | Encounter Summary ---
Demographics + + + | Address | [address] | | | [place] [address] | + + + | Home Phone | | + + + | Preferred Language | Unknown | + + + | Marital Status | Single | + + + | Adventist Affiliation | CHR | + + + | Race | White | + + + | Ethnic Group | Not or | + + + Author + + + | Author | [facility] | + + + | Organization | [facility] | + + + | Address | Unknown | + + + | Phone | Unavailable | + + + Support + + + + + | Name | Relationship | Address | Phone | + + + + + | Darius Fields | HELEN | [address] | | | | | [place] [address] | | + + + + + Care Team Providers + +------+ + | Care Census Enumerator Name | Role | Phone | + +------+ + | Serena Barroso | PCP | | + +------+ + Encounter Details +--------+------+ + + + | Date | Type | Department | Care Team | Description | +--------+------+ + + + | 06/29/ | Lab | Laboratory at [facility] | | Renal Insufficiency | | 2008 | | [address] | | | | | | [place], [place] | | | | | | [address] | | | | | | [phone] | | | +--------+------+ + + + [...] +--------+ + + + | [facility] - CBC ONLY | Routin | 06/29/2009 | Renal | Results for this | | | e | 12:57 PM | Insufficiency | procedure are in the | | | | PDT | | results section. | + +--------+ + + + | [facility] - COMPLETE | Routin | 06/29/2009 | Renal | Results for this | | METABOLIC SET | e | 12:57 PM | Insufficiency | procedure are in the | | | | PDT | | results section. | + +--------+ + + + documented in this encounter Results [facility] - COMPLETE METABOLIC SET (06/29/2009 12:57 PM PDT) + +---------+ + + + | Component | Value | Ref Range | Performed | Pathologist | | | | | At | Signature | + +---------+ + + + | GLUCOSE-[facility] | 96 | 60 - 99 mg/dL | [facility] | | | | | | DEPARTMENT | | | | | | OF | | | | | | PATHOLOGY | | + +---------+ + + + | UREA | 9 | 6 - 20 mg/dL | [facility] | | | NITROGEN-CH | | | DEPARTMENT | | | H | | | OF | | | | | | PATHOLOGY | | + +---------+ + + + | CREATININE- | 0.8 | 0.6 - 1.1 mg/dL | [facility] | | | [facility] | | | DEPARTMENT | | | | | | OF | | | | | | PATHOLOGY | | + +---------+ + + + | PROTEIN, | 7.8 | 6.3 - 8.0 g/dL | [facility] | | | TOTAL-[facility] | | | DEPARTMENT | | | | | | OF | | | | | | PATHOLOGY | | + +---------+ + + + | ALBUMIN-[facility] | 4.7 (H) | 3.4 - 4.4 g/dL | [facility] | | | | | | DEPARTMENT | | | | | | OF | | | | | | PATHOLOGY | | + +---------+ + + + | CALCIUM-[facility] | 9.6 | 8.8 - 10.9 | [facility] | | | | | mg/dL | DEPARTMENT | | | | | | OF | | | | | | PATHOLOGY | | + +---------+ + + + | BILIRUBIN, | 0.6 | 0.3 - 1.2 mg/dL | [facility] | | | TOTAL-[facility] | | | DEPARTMENT | | | | | | OF | | | | | | PATHOLOGY | | + +---------+ + + + | ALK | 98 | 42 - 98 U/L | [facility] | | | PHOS-[facility] | | | DEPARTMENT | | | | | | OF | | | | | | PATHOLOGY | | + +---------+ + + + | AST-[facility] | 31 | 15 - 41 U/L | [facility] | | | | | | DEPARTMENT | | | | | | OF | | | | | | PATHOLOGY | | + +---------+ + + + | SODIUM-[facility] | 132 (L) | 133 - 141 | [facility] | | | | | mmol/L | DEPARTMENT | | | | | | OF | | | | | | PATHOLOGY | | + +---------+ + + + | POTASSIUM-C | 4.2 | 3.6 - 5.0 | [facility] | | | HH | | mmol/L | DEPARTMENT | | | | | | OF | | | | | | PATHOLOGY | | + +---------+ + + + | CHLORIDE-CH | 103 | 97 - 104 mmol/L | [facility] | | | H | | | DEPARTMENT | | | | | | OF | | | | | | PATHOLOGY | | + +---------+ + + + | CO2 | 21 (L) | 24 - 30 mmol/L | [facility] | | | TOTAL-CH[facility] | | | DEPARTMENT | | | | | | OF | | | | | | PATHOLOGY | | + +---------+ + + + | ALT-[facility] | 19 | 13 - 48 U/L | [facility] | | | | | | DEPARTMENT | | | | | | OF | | | | | | PATHOLOGY | | + +---------+ + + + + + | Specimen | + + | Blood - Blood | + + + + + | Narrative | Performed At | + + + | Specimen has slight hemolysis: Potassium, LD and AST may be Falsely | [facility] | | increased. Suggest recollection of sample if indicated. | DEPARTMENT OF | | | PATHOLOGY | + + + + + + + + | Performing | Address | City/State/Zipcode | Phone Number | | Organization | | | | + + + + + | [facility] DEPARTMENT | [address] | [place] [address] | | | PATHOLOGY | [address] | | | + + + + + | [facility] DEPARTMENT OF | [facility] | [place] [address] | | | PATHOLOGY | [address] | | | + + + + + [facility] - CBC ONLY (06/29/2009 12:57 PM PDT) + + + + + + | Component | Value | Ref Range | Performed | Pathologist | | | | | At | Signature | + + + + + + | WHITE CELL | 8.6 | 3.4 - 10.0 K/cu | [facility] | | | COUNT - [facility] | | mm | DEPARTMENT | | | | | | OF | | | | | | PATHOLOGY | | + + + + + + | RED CELL | 4.62 | 3.80 - 5.20 | [facility] | | | COUNT - [facility] | | M/cu mm | DEPARTMENT | | | | | | OF | | | | | | PATHOLOGY | | + + + + + + | HEMOGLOBIN, | 15.1 (H) | 12.2 - 15.0 | [facility] | | | BLOOD - | | g/dL | DEPARTMENT | | | [facility] | | | OF | | | | | | PATHOLOGY | | + + + + + + | HEMATOCRIT | 46.5 | 37.0 - 46.5 % | [facility] | | | - [facility] | | | DEPARTMENT | | | | | | OF | | | | | | PATHOLOGY | | + + + + + + | MCV - [facility] | 100.7 (H) | 85.0 - 95.0 fL | [facility] | | | | | | DEPARTMENT | | | | | | OF | | | | | | PATHOLOGY | | + + + + + + | MCH - [facility] | 32.7 (H) | 29.0 - 32.0 pg | [facility] | | | | | | DEPARTMENT | | | | | | OF | | | | | | PATHOLOGY | | + + + + + + | MCHC - [facility] | 32.5 (L) | 32.6 - 33.9 | [facility] | | | | | g/dL | DEPARTMENT | | | | | | OF | | | | | | PATHOLOGY | | + + + + + + | RDW-[facility] | 13.3 | 11.5 - 15.0 % | [facility] | | | | | | DEPARTMENT | | | | | | OF | | | | | | PATHOLOGY | | + + + + + + | PLATELET | 340 | 150 - 420 K/cu | [facility] | | | COUNT, | | mm | DEPARTMENT | | | BLOOD - [facility] | | | OF | | | | | | PATHOLOGY | | + + + + + + | MPV-[facility] | 10.2 | 7.4 - 10.4 fL | [facility] | | | | | | DEPARTMENT | | | | | | OF | | | | | | PATHOLOGY | | + + + + + + + + | Specimen | + + | Blood - Blood | + + + + + + + | Performing | Address | City/State/Zipcode | Phone Number | | Organization | | | | + + + + + | [facility] | [address] | [place] [address] | | | PATHOLOGY | [address] | | | + + + + + | [facility] | [address] | [place] [address] | | | PATHOLOGY | [address] | | | + + + + + documented in this encounter Visit Diagnoses + + | Diagnosis | + + | Renal insufficiency Unspecified disorder of kidney and ureter | + + documented in this encounter"
--- OUTSIDE RECORDS SUMMARY | ~2019-11-08 | XMS | Encounter Summary ---
Demographics + + + | Address | [address] | | | [place] [address] | + + + | Home Phone | | + + + | Preferred Language | Unknown | + + + | Marital Status | | + + + | Yazidi Affiliation | Unknown | + + + | Race | Unknown | + + + | Ethnic Group | Unknown | + + + Author + + + | Author | [facility] | | | and [place] | + + + | Organization | [facility] | | | and [place] | + + + | Address | Unknown | + + + | Phone | Unavailable | + + + Support + + + + + | Name | Relationship | Address | Phone | + + + + + | Darius Fields | ECON | [address] | | | | | , [address] | | + + + + + Care Team Providers + +------+ + | Care Exhaust Emissions Inspector Name | Role | Phone | + +------+ + PCP | Unavailable | + +------+ + Encounter Details +--------+ + + + + | Date | Type | Department | Care Team | Description | +--------+ + + + + | 01/09/ | Abstract | [facility] | Provider, | | | 2018 | | [address] | [address] | | | | | [address] [place] | [address] | | | | | [address] | [place] [address] | | | | | [phone] | | | +--------+ + + + [...] | 12/02/ | Office | Gastroenterology | [facility], | | | 2020 | Visit | | CRISTHIAN Carbone [address] | | | | | | [address] | | | | | | [place] | | | | | | [address] | | | | | | | | +--------+---------+ + + + documented as of this encounter Visit Diagnoses Not on filedocumented in this encounter"
--- OUTSIDE RECORDS SUMMARY | ~2019-11-08 | XMS | Encounter Summary ---
Demographics + + + | Address | [address] | | | [place] [address] | + + + | Home Phone | | + + + | Preferred Language | Unknown | + + + | Marital Status | | + + + | Pentecostalism Affiliation | Unknown | + + + | Race | Unknown | + + + | Ethnic Group | Unknown | + + + Author + + + | Author | [facility] | | | and [place] | + + + | Organization | [facility] | | | and [place] | + + + | Address | Unknown | + + + | Phone | Unavailable | + + + Support + + + + + | Name | Relationship | Address | Phone | + + + + + | Darius Fields | ECON | [address] | | | | | , [address] | | + + + + + Care Team Providers + +------+ + | Care Patient Manager Name | Role | Phone | + +------+ + PCP | Unavailable | + +------+ + Encounter Details +--------+ + + + + | Date | Type | Department | Care Team | Description | +--------+ + + + + | 10/22/ | Hospital | [facility] | | | | 2006 - | Encounter | MED CTR EMERGENCY | | | | | | CENTER [address] | | | | 10/26/ | | [place] | | | | 2006 | | [address] | | | | | | [phone] | | | +--------+ + + + [...] | 12/02/ | Office | Gastroenterology | [facility], | | | 2020 | Visit | | CRISTHIAN Carbone [address] | | | | | | [address] | | | | | | [place] | | | | | | [address] | | | | | | | | +--------+---------+ + + + documented as of this encounter Visit Diagnoses Not on filedocumented in this encounter"
--- OUTSIDE RECORDS SUMMARY | ~2019-11-08 | XMS | Encounter Summary ---
Demographics + + + | Address | [address] | | | [place] [address] | + + + | Home Phone | | + + + | Preferred Language | Unknown | + + + | Marital Status | Single | + + + | Rastafari Affiliation | CHR | + + + | Race | White | + + + | Ethnic Group | Not or | + + + Author + + + | Author | [facility] | + + + | Organization | [facility] | + + + | Address | Unknown | + + + | Phone | Unavailable | + + + Support + + + + + | Name | Relationship | Address | Phone | + + + + + | Darius Fields | HELEN | [address] | | | | | [place] [address] | | + + + + + Care Team Providers + +------+ + | Care Adjunct Phlebotomy Instructor Name | Role | Phone | + +------+ + | Serena Barroso | PCP | | + +------+ + Encounter Details +--------+ + + + + | Date | Type | Department | Care Team | Description | +--------+ + + + + | 02/03/ | Orders Only | Urology Adult | Kristie, | Renal Insufficiency; | | 2007 | | [address] | MD Reinaldo | Status of Other | | | | Mailcode: [id number] | | Artificial Opening | | | | [place] for [facility] | | of Urinary Tract; | | | | and Healing, | | Bladder Extrophy | | | | Building | | | | | | Floor [place], [place] | | | | | | [address] | | | | | | [phone] | | | +--------+ + + + [...] of this encounter Plan of Treatment + +------+--------+ + + | Name | Type | Priori | Associated Diagnoses | Order Schedule | | | | ty | | | + +------+--------+ + + | [facility]-SPEC COLLCT | Lab | Routin | Renal | Ordered: 02/04/2008 | | VPUNCT | | e | Insufficiency | | + +------+--------+ + + documented as of this encounter Procedures + +--------+ + + + | Procedure Name | Priori | Date/Time | Associated Diagnosis | Comments | | | ty | | | | + +--------+ + + + | [facility] - BASIC | Routin | 02/04/2008 | Renal | Results for this | | METABOLIC SET | e | 3:05 PM | Insufficiency | procedure are in the | | | | PDT | | results section. | + +--------+ + + + documented in this encounter Results [facility] - BASIC METABOLIC SET (02/04/2008 3:05 PM PDT) + +---------+ + + + | Component | Value | Ref Range | Performed | Pathologist | | | | | At | Signature | + +---------+ + + + | GLUCOSE-[facility] | 98 | 60 - 99 mg/dL | [facility] | | | | | | DEPARTMENT | | | | | | OF | | | | | | PATHOLOGY | | + +---------+ + + + | UREA | 14 | 6 - 20 mg/dL | [facility] | | | NITROGEN-CH | | | DEPARTMENT | | | H | | | OF | | | | | | PATHOLOGY | | + +---------+ + + + | CREATININE- | 0.9 | 0.6 - 1.1 mg/dL | [facility] | | | [facility] | | | DEPARTMENT | | | | | | OF | | | | | | PATHOLOGY | | + +---------+ + + + | SODIUM-[facility] | 141 | 133 - 141 | [facility] | | | | | mmol/L | DEPARTMENT | | | | | | OF | | | | | | PATHOLOGY | | + +---------+ + + + | POTASSIUM-C | 4.7 | 3.6 - 5.0 | [facility] | | | HH | | mmol/L | DEPARTMENT | | | | | | OF | | | | | | PATHOLOGY | | + +---------+ + + + | CHLORIDE-CH | 105 (H) | 97 - 104 mmol/L | [facility] | | | H | | | DEPARTMENT | | | | | | OF | | | | | | PATHOLOGY | | + +---------+ + + + | CO2 | 26 | 24 - 30 mmol/L | [facility] | | | TOTAL-CHH | | | DEPARTMENT | | | | | | OF | | | | | | PATHOLOGY | | + +---------+ + + + | CALCIUM-[facility] | 9.2 | 8.8 - 10.9 | [facility] | [...] + + + + + | [facility] DEPARTMENT OF | [address] | [place] [address] | | | PATHOLOGY | [address] | | | + + + + + | [facility] | [address] | [place] [address] | | | PATHOLOGY | [address] | | | + + + + + documented in this encounter Visit Diagnoses + + | Diagnosis | + + | Renal insufficiency Unspecified disorder of kidney and ureter | + + | Status of other artificial opening of urinary tract | + + | Bladder extrophy Exstrophy of urinary bladder | + + documented in this encounter"
--- OUTSIDE RECORDS SUMMARY | ~2019-11-08 | XMS | Encounter Summary ---
Demographics + + + | Address | [address] | | | [place] [address] | + + + | Home Phone | | + + + | Preferred Language | Unknown | + + + | Marital Status | Single | + + + | Methodist Affiliation | CHR | + + + | Race | White | + + + | Ethnic Group | Not or | + + + Author + + + | Author | [facility] | + + + | Organization | [facility] | + + + | Address | Unknown | + + + | Phone | Unavailable | + + + Support + + + + + | Name | Relationship | Address | Phone | + + + + + | Darius Fields | HELEN | [address] | | | | | [place] [address] | | + + + + + Care Team Providers + +------+ + | Care Pattern Weaver Name | Role | Phone | + [...] [address] | | | | | | [place], [place] | | | | | | [address] | | | | | | [phone] | | | +--------+ + + + [...]
--- OUTSIDE RECORDS SUMMARY | ~2019-11-08 | XMS | Encounter Summary ---
Demographics + + + | Address | [address] | | | [place] [address] | + + + | Home Phone | | + + + | Preferred Language | Unknown | + + + | Marital Status | Single | + + + | Worship Affiliation | CHR | + + + [...] | | | | | [place] [address] | | + + + + + Care Team Providers + +------+ + | Care Process Consultant Name | Role | Phone | + +------+ + | Serena Barroso | PCP | | + +------+ + Encounter Details +--------+ + + + + | Date | Type | Department | Care Team | Description | +--------+ + + + + | 05/30/ | Telephone | Urology Oncology | Hollie Logan, | | | 2009 | | [address] | Blue Smith MD [address] | | | | | Mailcode: CH10U | [facility] | | | | | [facility] | [address] | | | | | and Healing, | [place] [address] | | | | | [facility] | [phone] | | | | | Floor [place], [place] | | | | | | [address] | | | | | | [phone] | | | +--------+ + + + [...]
--- OUTSIDE RECORDS SUMMARY | ~2019-11-08 | XMS | Encounter Summary ---
Demographics + + + | Address | [address] | | | [place] [address] | + + + | Home Phone [...] Author + + + | Author | [facility] | + + + | Organization | [facility] | + + + | Address | Unknown | + + + | Phone | Unavailable | + + + Support + + + + + | Name | Relationship | Address | Phone | + + + + + | Darius Fields | HELEN | [address] | | | | | [place] [address] | | + + + + + Care Team Providers + +------+ + | Care Disability Representative Name | Role | Phone | + +------+ + | Serena Barroso | PCP | | + +------+ + Encounter Details +--------+ + + + + | Date | Type | Department | Care Team | Description | +--------+ + + + + | 04/11/ | Documentati | Urology Oncology | Eve Duran MD | | | 2008 | on | [address] | [address] | | | | | Mailcode: CH10U | [facility] | | | | | [facility] | [place] [address] | | | | | and Healing, | [phone] | | | | | Building | | | | | | [place], [place] | | | | | | [address] | | | | | | [phone] | | | +--------+ + + + [...]
--- OUTSIDE RECORDS SUMMARY | ~2019-11-08 | XMS | Encounter Summary ---
Demographics + + + | Address | [address] | | | [place] [address] | + + + | Home Phone | | + + + | Preferred Language | Unknown | + + + | Marital Status | Single | + + + | Voodoo Affiliation | CHR | + + + | Race | White | + + + | Ethnic Group | Not or | + + + Author + + + | Author | [facility] | + + + | Organization | [facility] | + + + | Address | Unknown | + + + | Phone | Unavailable | + + + Support + + + + + | Name | Relationship | Address | Phone | + + + + + | Darius Fields | HELEN | [address] | | | | | [place] [address] | | + + + + + Care Team Providers + +------+ + | Care Auto Clocks Repairer Name | Role | Phone | + +------+ + | Serena Barroso | PCP | | + +------+ + Reason for Visit + + + | Reason | Comments | + + + | Medication | | | management | | + + + Encounter Details +--------+ + + + + | Date | Type | Department | Care Team | Description | +--------+ + + + + | 02/10/ | Telephone | Urology Oncology | Kristie, | Medication | | 2008 | | [address] | MD Reinaldo | management | | | | Mailcode: CH10U | | | | | | [facility] | | | | | | and [place], | | | | | | Building | | | | | | Floor [place], [place] | | | | | | [address] | | | | | | [phone] | | | +--------+ + + + [...]
--- OUTSIDE RECORDS SUMMARY | ~2019-11-08 | XMS | Encounter Summary ---
Demographics + + + | Address | [address] | | | [place] [address] | + + + | Home Phone [...] | | | | | [place] [address] | | + + + + + Care Team Providers + +------+ + | Care Information Scientist Name | Role | Phone | + +------+ + | Rona Lyons MD | PCP | | + +------+ + Encounter Details +--------+ + + + + | Date | Type | Department | Care Team | Description | +--------+ + + + + | 11/23/ | DELETED | [facility] | Management, | InPt Prog Notes | | 2006 | TRANSCRIPTI | | Discharge Case | | | | ON | | | | +--------+ + + + [...]
--- OUTSIDE RECORDS SUMMARY | ~2019-11-08 | XMS | Encounter Summary ---
Demographics + + + | Address | [address] | | | [place] [address] | + + + | Home Phone | | + + + | Preferred Language | Unknown | + + + | Marital Status | Single | + + + | Jewish Affiliation | CHR | + + + | Race | White | + + + | Ethnic Group | Not or | + + + Author + + + | Author | [facility] | + + + | Organization | [facility] | + + + | Address | Unknown | + + + | Phone | Unavailable | + + + Support + + + + + | Name | Relationship | Address | Phone | + + + + + | Darius Fields | HELEN | [address] | | | | | [place] [address] | | + + + + + Care Team Providers + +------+ + | Care Ear Nose And Throat Specialist Name | Role | Phone | + +------+ + | Serena Barroso | PCP | | + +------+ + Reason for Visit +--------+ + | Reason | Comments | +--------+ + | Other | coordination of care | +--------+ + Encounter Details +--------+ + + + + | Date | Type | Department | Care Team | Description | +--------+ + + + + | 02/02/ | Telephone | Urology Adult | Kristie, | Other (coordination | | 2008 | | [address] | MD [place] | [facility]) | | | | Mailcode: CH10U | | | | | | [facility] | | | | | | and Healing, | | | | | | [address] | | | | | | Floor [place], [place] | | | | | | [address] | | | | | | [phone] | | | +--------+ + + + [...]
--- OUTSIDE RECORDS SUMMARY | ~2019-11-08 | XMS | Encounter Summary ---
Demographics + + + | Address | [address] | | | [place] [address] | + + + | Home Phone | | + + + | Preferred Language | Unknown | + + + | Marital Status | Single | + + + | Congregational Affiliation | CHR | + + + | Race | White | + + + | Ethnic Group | Not or | + + + Author + + + | Author | [facility] | + + + | Organization | [facility] | + + + | Address | Unknown | + + + | Phone | Unavailable | + + + Support + + + + + | Name | Relationship | Address | Phone | + + + + + | Darius Fields | HELEN | [address] | | | | | [place] [address] | | + + + + + Care Team Providers + +------+ + | Care Section Housekeeper Name | Role | Phone | + +------+ + | Dharmesh flaquita MORROW | PCP | | + +------+ + Reason for Visit +--------+ + | Reason | Comments | +--------+ + | Other | poss kidney infection | +--------+ + Encounter Details +--------+ + + + + | Date | Type | Department | Care Team | Description | +--------+ + + + + | 01/20/ | Telephone | Urology Adult | Kristie, | Other (poss kidney | | 2007 | | [address] | MD Reinaldo | infection ) | | | | Mailcode: CH10U | | | | | | [facility] | | | | | | and Healing, | | | | | | [address], | | | | | | Floor [place], [place] | | | | | | [address] | | | | | | [phone] | | | +--------+ + + + [...]
--- OUTSIDE RECORDS SUMMARY | ~2019-11-08 | XMS | Encounter Summary ---
Demographics + + + | Address | [address] | | | [place] [address] | + + + | Home Phone | | + + + | Preferred Language | Unknown | + + + | Marital Status | Single | + + + | Mandaeism Affiliation | CHR | + + + | Race | White | + + + | Ethnic Group | Not or | + + + Author + + + | Author | [facility] | + + + | Organization | [facility] | + + + | Address | Unknown | + + + | Phone | Unavailable | + + + Support + + + + + | Name | Relationship | Address | Phone | + + + + + | Darius Fields | HELEN | [address] | | | | | [place] [address] | | + + + + + Care Team Providers + +------+ + | Care Lean Manager Name | Role | Phone | + +------+ + | Serena Barroso | PCP | | + +------+ + Encounter Details +--------+ + + + + | Date | Type | Department | Care Team | Description | +--------+ + + + + | 06/04/ | Telephone | Urology Oncology | Hollie Logan, | | | 2009 | | [address] | Blue Smith MD [address] | | | | | Mailcode: CH10U | [facility] | | | | | [facility] | [address] | | | | | and Healing, | [place] [address] | | | | | [facility] | [phone] | | | | | Floor [place], [place] | | | | | | [address] | | | | | | [phone] | | | +--------+ + + + [...]
--- OUTSIDE RECORDS SUMMARY | ~2019-11-08 | XMS | Encounter Summary ---
Demographics + + + | Address | [address] | | | [place] [address] | + + + | Home Phone | | + + + | Preferred Language | Unknown | + + + | Marital Status | Single | + + + | Zoroastrianism Affiliation | CHR | + + + | Race | White | + + + | Ethnic Group | Not or | + + + Author + + + | Author | [facility] | + + + | Organization | [facility] | + + + | Address | Unknown | + + + | Phone | Unavailable | + + + Support + + + + + | Name | Relationship | Address | Phone | + + + + + | Darius Fields | HELEN | [address] | | | | | [place] [address] | | + + + + + Care Team Providers + +------+ + | Care Manager Medicare Name | Role | Phone | + +------+ + | Serena Barroso | PCP | | + +------+ + Encounter Details +--------+ + + + + | Date | Type | Department | Care Team | Description | +--------+ + + + + | 06/09/ | Hospital | Registration [address] | Kristie, | | | 2006 | Activity | [address] | MD Reinaldo | | | | | Monster Mailcode: [id number] | | | | | | [place], [place] | | | | | | [address] | | | | | | [phone] | | | +--------+ + + + [...]
--- OUTSIDE RECORDS SUMMARY | ~2019-11-08 | XMS | Encounter Summary ---
Demographics + + + | Address | [address] | | | [place] [address] | + + + | Home Phone | | + + + | Preferred Language | Unknown | + + + | Marital Status | | + + + | Latter-Day Affiliation | Unknown | + + + | Race | Unknown | + + + | Ethnic Group | Unknown | + + + Author + + + | Author | [facility] | | | and [place] | + + + | Organization | [facility] | | | and [place] | + + + | Address | Unknown | + + + | Phone | Unavailable | + + + Support + + + + + | Name | Relationship | Address | Phone | + + + + + | Darius Fields | ECON | [address] | | | | | , [address] | | + + + + + Care Team Providers + +------+ + | Care Galley Hand Name | Role | Phone | + +------+ + PCP | Unavailable | + +------+ + Encounter Details +--------+ + + + + | Date | Type | Department | Care Team | Description | +--------+ + + + + | 07/23/ | Hospital | [facility] | | | | 2006 | Encounter | MED CTR EMERGENCY | | | | | | CENTER [address] | | | | | | [place] | | | | | | [address] | | | | | | [phone] | | | +--------+ + + + [...] | 12/02/ | Office | Gastroenterology | [facility], | | | 2020 | Visit | | CRISTHIAN Carbone [address] | | | | | | [address] | | | | | | [place] | | | | | | [address] | | | | | | | | +--------+---------+ + + + documented as of this encounter Visit Diagnoses Not on filedocumented in this encounter"
--- OUTSIDE RECORDS SUMMARY | ~2019-11-08 | XMS | Encounter Summary ---
Demographics + + + | Address | [address] | | | [place] [address] | + + + | Home Phone | | + + + | Preferred Language | Unknown | + + + | Marital Status | Single | + + + | Mormon Affiliation | CHR | + + + | Race | White | + + + | Ethnic Group | Not or | + + + Author + + + | Author | [facility] | + + + | Organization | [facility] | + + + | Address | Unknown | + + + | Phone | Unavailable | + + + Support + + + + + | Name | Relationship | Address | Phone | + + + + + | Darius Fields | HELEN | [address] | | | | | [place] [address] | | + + + + + Care Team Providers + +------+ + | Care Superintendent Building Name | Role | Phone | + +------+ + | Rona Lyons MD | PCP | | + +------+ + Encounter Details +--------+ + + + + | Date | Type | Department | Care Team | Description | +--------+ + + + + | 06/10/ | Results | Urology Oncology | Kristie, | | | 2006 | Only | [address] | MD Reinaldo | | | | | Mailcode: CH10U | | | | | | [facility] | | | | | | and Healing, | | | | | | Building | | | | | | Floor [place], [place] | | | | | | [address] | | | | | | [phone] | | | +--------+ + + + [...] | + +--------+ + + + | CATHETER REMOVAL | Routin | 06/11/2007 | | Results for this | | | e | 2:10 PM | | procedure are in the | | | | PDT | | results section. | + +--------+ + + + | NEPH UW/MARLYN PEL | Routin | 06/10/2007 | | Results for this | | | e | 12:06 PM | | procedure are in the | | | | PDT | | results section. | + +--------+ + + + documented in this encounter Results CATHETER REMOVAL (06/11/2007 2:10 PM PDT) + + + + + + | Component | Value | Ref Range | Performed | Pathologist | | | | | At | Signature | + + + + + + | CATHERTER | Radiologist 1: LAURA, | | | | | REMOVAL | Dina HERRERAPROCEDURE: | | | | | | Nephrostogram and Right | | | | | | Percutaneous Nephrostomy | | | | | | TubeRemoval PRIMARY | | | | | | RUNNER OUT: Go | | | | | | Dina Hansen FOAM DISPENSER | | | | | | RUNNER OUT: Darrian Chung | | | | | | Dina Carter ATTENDING | | | | | | RUNNER OUT: Darrian Chung | | | | | | Dina Carter PREOPERATIVE | | | | | | DIAGNOSIS: Ureteral | | | | | | obstruction, treated | | | | | | POSTOPERATIVE DIAGNOSIS: | | | | | | Same | | | | | | OPERATIONS:Operation 1. | | | | | | Injection of contrast | | | | | | material existing | | | | | | percutaneousnephrostomy | | | | | | catheter Operation 2. | | | | | | Percutaneous | | | | | | nephrostomy catheter | | | | | | removal underfluoroscopy | | | | | | CLINICAL:42 year-old | | | | | | lady status post | | | | | | bilateral ureteral | | | | | | diversion into anileal | | | | | | conduit with worsening | | | | | | right flank pain and | | | | | | hydronephrosistreated | | | | | | with percutaneous | | | | | | nephrostomy catheter and | | | | | | ureteral stentplacement | | | | | | yesterday. With | | | | | | functioning of the | | | | | | ureteral | | | | | | stent,percutaneous | | | | | | nephrostomy catheter | | | | | | removal is requested | | | | | | underfluoroscopy. | | | | | | PROCEDURE:Initially , | | | | | | contrast was injected | | | | | | through the existing | | | | | | catheterdemonstrating | | | | | | function of the ureteral | | | | | | stent. A guidewire | | | | | | wasadvanced through the | | | | | | percutaneous nephrostomy | | | | | | catheter withremoval of | | | | | | the catheter without | | | | | | incident under | | | | | | fluoroscopy. Thereis | | | | | | no evidence of bleeding. | | | | | | The patient tolerated | | | | | | the procedure without | | | | | | incident. | | | | | | Thisattending | | | | | | interventional | | | | | | radiologist was present | | | | | | for andparticipated in | | | | | | the entire procedure. | | | | | | Fluoroscopy time was | | | | | | 0:21minutes. A total | | | | | | of 20 cc of | | | | | | Omnipaque was used. | | | | | | No sedationwas | | | | | | required although | | | | | | continuous R.N. | | | | | | monitoring was provided. | | | | | | FINDINGS:Residual | | | | | | pyelocaliectasis and | | | | | | ureterectasis remains | | | | | | down to theanastomosis. | | | | | | Drainage is evident | | | | | | into the ileal loop. | | | | | | On thefinal image, the | | | | | | ureteral stent remains | | | | | | in appropriate | | | | | | positionwith removal of | | | | | | the percutaneous | | | | | | nephrostomy | | | | | | catheter.IMPRESSION: 1. | | | | | | Functioning right | | | | | | ureteral stent 2. | | | | | | Uneventful removal of | | | | | | the right percutaneous | | | | | | nephrostomycatheter | | | | + + + + + + + + | Specimen | + + | | + + + +---------+ + + | Performing | Address | City/State/Zipcode | Phone Number | | Organization | | | | + +---------+ + + | [facility] | | | | | RADIOLOGY | | | | + +---------+ + + NEPH ANGELINA/MARLYN DAVIS (06/10/2007 12:06 PM PDT) + + + + + + | Component | Value | Ref Range | Performed | Pathologist | | | | | At | Signature | + + + + + + | NEPH UNI | Radiologist 1: SRINIVAS, | | | | | W/RENAL | Dina EATONPROCEDURE: | | | | | PELVIS | Placement of right | | | | | DRAIN | percutaneous nephrostomy | | | | | | anddouble-J ureteral | | | | | | stent PRIMARY | | | | | | RUNNER OUT: Yehuda Duran | | | | | | Dina ANGIOGRAPHY | | | | | | ATTENDING: Sinan | | | | | | Dina Maloney DIAGNOSIS: | | | | | | Chronic right flank pain | | | | | | with hydronephrosis | | | | | | FLUORO TIME: 6.4 minutes | | | | | | INDICATION FOR | | | | | | PROCEDURE: This patient | | | | | | who is status | | | | | | postbilateral ureteral | | | | | | diversion into an ileal | | | | | | conduit has | | | | | | worseningright flank | | | | | | pain and hydronephrosis. | | | | | | We have been asked to | | | | | | placea right | | | | | | percutaneous nephrostomy | | | | | | catheter along with a | | | | | | double-Jureteral stent. | | | | | | DESCRIPTION OF | | | | | | PROCEDURE: The patient | | | | | | was placed prone on | | | | | | theangiography table and | | | | | | her right kidney was | | | | | | localized | | | | | | withultrasound. A | | | | | | right flank was prepped | | | | | | and draped in a | | | | | | sterilefashion. Using | | | | | | local anesthesia and | | | | | | ultrasound guidance the | | | | | | rightrenal collecting | | | | | | system was entered with | | | | | | an 18G Chiba needle | | | | | | andan angiographic | | | | | | catheter was advanced | | | | | | into the renal pelvis. | | | | | | Thiscatheter was then | | | | | | advanced down the right | | | | | | ureter and into theileal | | | | | | pouch. The catheter | | | | | | was exchanged for a | | | | | | 9-English peel-awaysheath | | | | | | which was advanced into | | | | | | the renal pelvis. A | | | | | | 28 cm long,8-English | | | | | | double-J ureteral stent | | | | | | was then inserted in | | | | | | positionwith its distal | | | | | | pigtail in the ileal | | | | | | conduit and its | | | | | | proximalpigtail in the | | | | | | renal pelvis. The | | | | | | peel-away sheath was | | | | | | thenremoved and a | | | | | | 10.5-English multipurpose | | | | | | drain was inserted | | | | | | andpositioned with its | | | | | | locking pigtail in the | | | | | | renal pelvis. | | | | | | Thiscatheter was | | | | | | sutured in place and | | | | | | capped. There were | | | | | | nocomplications. I was | | | | | | present for and | | | | | | personally supervised | | | | | | theentire procedure. | | | | | | FINDINGS: The patient | | | | | | was noted to have marked | | | | | | hydronephrosis | | | | | | andhydroureter. There | | | | | | appeared to be a very | | | | | | tight stenosis at | | | | | | theanastomosis of the | | | | | | ureter with the ileal | | | | | | conduit. Some | | | | | | injectedcontrast did | | | | | | flow across the distal | | | | | | anastomosis, however. | | | | | | Acompletion spot film | | | | | | shows the newly inserted | | | | | | double-J ureteralstent | | | | | | to be appropriately | | | | | | positioned with its | | | | | | proximal pigtail inthe | | | | | | renal pelvis and distal | | | | | | end in the ileal pouch. | | | | | | Thenephrostomy | | | | | | catheter is positioned | | | | | | with its pigtail in the | | | | | | pelvis.IMPRESSION: | | | | | | Successful placement of | | | | | | a right double-J | | | | | | ureteralstent and a | | | | | | right percutaneous | | | | | | nephrostomy catheter. | | | | | | If thepatient does | | | | | | well be nephrostomy | | | | | | catheter can be removed | | | | | | inseveral days. | | | | + + + + + + + + | Specimen | + + | | + + + +---------+ + + | Performing | Address | City/State/Zipcode | Phone Number | | Organization | | | | + +---------+ + + | [facility] DEPARTMENT OF | | | | | RADIOLOGY | | | | + +---------+ + + documented in this encounter Visit Diagnoses Not on filedocumented in this encounter"
--- OUTSIDE RECORDS SUMMARY | ~2019-11-08 | XMS | Encounter Summary ---
Demographics + + + | Address | [address] | | | [place] [address] | + + + | Home Phone | | + + + | Preferred Language | Unknown | + + + | Marital Status | Single | + + + | Oriental Orthodox Affiliation | CHR | + + + | Race | White | + + + | Ethnic Group | Not or | + + + Author + + + | Author | [facility] | + + + | Organization | [facility] | + + + | Address | Unknown | + + + | Phone | Unavailable | + + + Support + + + + + | Name | Relationship | Address | Phone | + + + + + | Darius Fields | HELEN | [address] | | | | | [place] [address] | | + + + + + Care Team Providers + +------+ + | Care Instrumentation And Controls Designer Name | Role | Phone | + [...] Other (coordination | | 2008 | | [address] | MD Reinaldo | [facility]) | | | | Mailcode: CH10U | | | | | | [facility] | | | | | | and Healing, | | | | | | Building [address] | | | | | | Floor [place], [place] | | | | | | [address] | | | | | | [phone] | | | +--------+ + + + [...]
--- OUTSIDE RECORDS SUMMARY | ~2019-11-08 | XMS | Encounter Summary ---
Demographics + + + | Address | [address] | | | [place] [address] | + + + | Home Phone | | + + + | Preferred Language | Unknown | + + + | Marital Status | | + + + | Sabianism Affiliation | Unknown | + + + | Race | Unknown | + + + | Ethnic Group | Unknown | + + + Author + + + | Author | [facility] | | | and [place] | + + + | Organization | [facility] | | | and [place] | + + + | Address | Unknown | + + + | Phone | Unavailable | + + + Support + + + + + | Name | Relationship | Address | Phone | + + + + + | Darius Fields | ECON | [address] | | | | | , [address] | | + + + + + Care Team Providers + +------+ + | Care Nitroglycerin Supervisor Name | Role | Phone | + +------+ + PCP | Unavailable | + +------+ + Encounter Details +--------+ + + + + | Date | Type | Department | Care Team | Description | +--------+ + + + + | 12/17/ | [facility] | [facility] | Evan Bolton | | | 2007 | Encounter | MED CTR EMERGENCY | MD [address] | | | | | [place] [address] | [address] [place] | | | | | [place], [place] | [place] [address] | | | | | [address] | [phone] | | | | | [phone] | | | +--------+ + + + [...] | 12/02/ | Office | Gastroenterology | [facility], | | | 2019 | Visit | | CRISTHIAN Carbone [address] | | | | | | [address] | | | | | | [place] | | | | | | [address] | | | | | | | | +--------+---------+ + + + documented as of this encounter Visit Diagnoses Not on filedocumented in this encounter"
--- OUTSIDE RECORDS SUMMARY | ~2019-11-08 | XMS | Encounter Summary ---
Demographics + + + | Address | [address] | | | [place] [address] | + + + | Home Phone | | + + + | Preferred Language | Unknown | + + + | Marital Status | | + + + | Denominational Affiliation | Unknown | + + + | Race | Unknown | + + + | Ethnic Group | Unknown | + + + Author + + + | Author | [facility] | | | and [place] | + + + | Organization | [facility] | | | and [place] | + + + | Address | Unknown | + + + | Phone | Unavailable | + + + Support + + + + + | Name | Relationship | Address | Phone | + + + + + | Darius Diamond Luis CERVANTES | [address] | | | | | , [address] | | + + + + + Care Team Providers + +------+ + | Care Accounts Receivable Executive Name | Role | Phone | + +------+ + | Francine Sanford NP | PCP | | + +------+ + Reason for Visit +--------+ + | Reason | Comments | +--------+ + | Other | | +--------+ + Encounter Details +--------+ + + + + | Date | Type | Department | Care Team | Description | +--------+ + + + + | 02/16/ | Telephone | [facility] | Toi Gonzalez | Other | | 2018 | | [address] | MD Leighann [address] | | | | | [place], [place] | [place], [place] | | | | | [address] | [address] | | | | | [phone] | | | +--------+ + + + [...] | 12/02/ | Office | Gastroenterology | [facility], | | | 2020 | Visit | | CRI[address]HIAN Carbone [address] | | | | | | [address] | | | | | | [place] | | | | | | [address] | | | | | | | | +--------+---------+ + + + documented as of this encounter Visit Diagnoses Not on filedocumented in this encounter"
--- OUTSIDE RECORDS SUMMARY | ~2019-11-08 | XMS | Encounter Summary ---
Demographics + + + | Address | [address] | | | [place] [address] | + + + | Home Phone | | + + + | Preferred Language | Unknown | + + + | Marital Status | | + + + | Latter Day Affiliation | Unknown | + + + | Race | Unknown | + + + | Ethnic Group | Unknown | + + + Author + + + | Author | [facility] | | | and [place] | + + + | Organization | [facility] | | | and [place] | + + + | Address | Unknown | + + + | Phone | Unavailable | + + + Support + + + + + | Name | Relationship | Address | Phone | + + + + + | Darius Diamond | HELEN | [address] | | | | | , [address] | | + + + + + Care Team Providers + +------+ + | Care Metal Loader Name | Role | Phone | + [...] | | Recurrent | Toi | [address] | | | | | UTI | MD Leighann | [place], | | | | | Hematuria, | [address] | [place] [address] | | | | | unspecified | [place] | Phone: | | | | | type | [place], [place] | [phone] | | | | | Procedures | [address] | Fax: | | | | | CT Urogram w | Phone: | [phone] | | | | | wo Contrast | [phone] | | | | | | [address] | Fax: | | | | | | SCAN,[place] | [phone] | | | | | | T [...] + + | 02/13/ | Office | [facility] | Toi Gonzalez | Recurrent UTI | | 2018 | Visit | [address] | MD Leighann [address] | (Primary Dx); | | | | [place], [place] | [place], [place] | Non-functioning | | | | [address] | [address] | kidney; Hematuria, | | | | [phone] | | unspecified type; | | | [...] February 26, 2018 at 7:45 AM at [facility]. Please report to [facility] no [...] to surgery: EKG, Labs. Please go to [facility] about one week prior to surgery to complete these tests. Call us at [phone] with any questions. [x] Pain management booklet [...] UA, POC Negative Negative, 100 mg/dL Specific [place], UA, POC 1.015 1.001 - 1.030 Blood, [...] CC: Francine Sanford NP, Karely Blue Urologist, [place], [facility] signed by Anton Gonzalez MD at 02/13/2018 11:35 AM PDTdocumented in this encounter Plan of Treatment +--------+---------+ + + + | Date | Type | Specialty | Care Team | Description | +--------+---------+ + + + | 12/02/ | Office | Gastroenterology | [facility], | | | 2020 | Visit | | CRISTHIAN Carbone [address] | | | | | | [address] | | | | | | [place] | | | | | | [address] | | | | | | | [...]
--- OUTSIDE RECORDS SUMMARY | ~2019-11-08 | XMS | Encounter Summary ---
Demographics + + + | Address | [address] | | | [place] [address] | + + + | Home Phone | | + + + | Preferred Language | Unknown | + + + | Marital Status | | + + + | Yarsanism Affiliation | Unknown | + + + | Race | Unknown | + + + | Ethnic Group | Unknown | + + + Author + + + | Author | [facility] | | | and [place] | + + + | Organization | [facility] | | | and [place] | + + + | Address | Unknown | + + + | Phone | Unavailable | + + + Support + + + + + | Name | Relationship | Address | Phone | + + + + + | Darius Diamond Luis CERVANTES | [address] | | | | | , [address] | | + + + + + Care Team Providers + +------+ + | Care Yard Warehouse Worker Name | Role | Phone | [...] | 02/16/ | Telephone | [facility] | Toi Gonzalez | Other | | 2018 | | [address] | MD Leighann [address] | | | | | [place], [place] | [place], [place] | | | | | [address] | [address] | | | | | [phone] | | | +--------+ + + + [...] [place] | | | | | | [address] | | | | | | | | +--------+---------+ + + + documented as of this encounter Visit Diagnoses Not on filedocumented in this encounter"
--- OUTSIDE RECORDS SUMMARY | ~2019-11-08 | XMS | Encounter Summary ---
Demographics + + + | Address | [address] | | | [place] [address] | + + + | Home Phone | | + + + | Preferred Language | Unknown | + + + | Marital Status | Single | + + + | Episcopalian Affiliation | CHR | + + + | Race | White | + + + | Ethnic Group | Not or | + + + Author + + + | Author | [facility] | + + + | Organization | [facility] | + + + | Address | Unknown | + + + | Phone | Unavailable | + + + Support + + + + + | Name | Relationship | Address | Phone | + + + + + | Darius Fields | HELEN | [address] | | | | | [place] [address] | | + + + + + Care Team Providers + +------+ + | Care Insulation Board Back Tender Name | Role | Phone | + +------+ + | Serena Barroso | PCP | | + +------+ + Encounter Details +--------+ + + + + | Date | Type | Department | Care Team | Description | +--------+ + + + + | 06/01/ | Telephone | Urology Adult | [place], | | | 2008 | | [address] | MD Reinaldo | | | | | Mailcode: CH10U | | | | | | [facility] | | | | | | and Healing, | | | | | | | | | | | | Floor [place], [place] | | | | | | [address] | | | | | | [phone] | | | +--------+ + + + [...]
--- OUTSIDE RECORDS SUMMARY | ~2019-11-08 | XMS | Encounter Summary ---
Demographics + + + | Address | [address] | | | [place] [address] | + + + | Home Phone | | + + + | Preferred Language | Unknown | + + + | Marital Status | | + + + | Pentecostal Affiliation | Unknown | + + + | Race | Unknown | + + + | Ethnic Group | Unknown | + + + Author + + + | Author | [facility] | | | and [place] | + + + | Organization | [facility] | | | and [place] | + + + | Address | Unknown | + + + | Phone | Unavailable | + + + Support + + + + + | Name | Relationship | Address | Phone | + + + + + | Darius Diamond CERVANTES | [address] | | | | | , [address] | | + + + + + Care Team Providers + +------+ + | Care Director Of Gift Planning Name | Role | Phone | + +------+ + | Francine Sanford NP | PCP | | + +------+ + Encounter Details +--------+ + + + + | Date | Type | Department | Care Team | Description | +--------+ + + + + | 04/02/ | Imaging | [facility] | Provider, | | | 2018 | Exam | MED CTR EXTERNAL | [address] | | | | | IMAGING | [address] | | | | | [phone] | [place] [address] | | +--------+ + + + + [...] | 12/02/ | Office | Gastroenterology | [facility] [place], | | | 2020 | Visit | | [address]RI[address]AN Carbone [address] | | | | | | [address] | | | | | | [place] | | | | | | [address] | | | | | | | | +--------+---------+ + + + documented as of this encounter Procedures + +--------+ + + + | Procedure Name | Priori | Date/Time | Associated Diagnosis | Comments | | | ty | | | | + +--------+ + + + | NM KIDNEY W FLOW AND | Routin | 12/15/2017 | | Results for this | | FUNCTION W | e | 8:55 AM | | procedure are in the | | DIURETIC | | PST | | results section. | + +--------+ + + + documented in this encounter Results NM Kidney w Flow and Function w Diuretic (12/15/2017 8:55 AM PST) + + | Specimen | + + | | + + + + + | Narrative | Performed At | + + + | External films for comparison only - no result from [facility]. | [facility] | + + + + +---------+ + + | Performing | Address | City/State/Zipcode | Phone Number | | Organization | | | | + +---------+ + + | [facility] | | | | + +---------+ + + documented in this encounter Visit Diagnoses Not on filedocumented in this encounter"
--- OUTSIDE RECORDS SUMMARY | ~2019-11-08 | XMS | Encounter Summary ---
Demographics + + + | Address | [address] | | | [place] [address] | + + + | Home Phone | | + + + | Preferred Language | Unknown | + + + | Marital Status | Single | + + + | Temple Affiliation | CHR | + + + | Race | White | + + + | Ethnic Group | Not or | + + + Author + + + | Author | [facility] | + + + | Organization | [facility] | + + + | Address | Unknown | + + + | Phone | Unavailable | + + + Support + + + + + | Name | Relationship | Address | Phone | + + + + + | Darius Fields | HELEN | [address] | | | | | [place] [address] | | + + + + + Care Team Providers + +------+ + | Care Seo Marketing Specialist Name | Role | Phone | + +------+ + | Serena Barroso | PCP | | + +------+ + Encounter Details +--------+ + + + + | Date | Type | Department | Care Team | Description | +--------+ + + + + | 01/18/ | Telephone | Urology Adult | [place], | | | 2007 | | [address] | MD Reinaldo | | | | | Mailcode: CH10U | | | | | | [facility] | | | | | | and Healing, | | | | | | | | | | | | Floor [place], [place] | | | | | | [address] | | | | | | [phone] | | | +--------+ + + + [...]
--- OUTSIDE RECORDS SUMMARY | ~2019-11-08 | XMS | Encounter Summary ---
Demographics + + + | Address | [address] | | | [place] [address] | + + + | Home Phone | | + + + | Preferred Language | Unknown | + + + | Marital Status | | + + + | Anabaptism Affiliation | Unknown | + + + | Race | Unknown | + + + | Ethnic Group | Unknown | + + + Author + + + | Author | [facility] | | | and [place] | + + + | Organization | [facility] | | | and [place] | + + + | Address | Unknown | + + + | Phone | Unavailable | + + + Support + + + + + | Name | Relationship | Address | Phone | + + + + + | Darius Diamond [place] | [address] | | | | | , [address] | | + + + + + Care Team Providers + +------+ + | Care Mosaic Layer Name | Role | Phone | + +------+ + | Francine Sanford NP | PCP | | + +------+ + Encounter Details +--------+ + + + + | Date | Type | Department | Care Team | Description | +--------+ + + + + | 04/10/ | Anesthesia | [facility] | Richard Quinn | | | 2017 | Event | [facility] | MD Jero [address] | | | | | [address] [place] | [address] [place] | | | | | [place] [address] | [place] [address] | | | | | [phone] | [phone] | | | | | | | | +--------+ + + + + Anesthesia Record + + + + + | Procedure Name | Responsible | Anesthesia Start | Anesthesia Stop Time | | | Anesthesiologist | Time | | + + + + + | [facility] | | | | | [facility] | | | | + + + + + + + | No events on file. | + + +------+ | Meds | +------+ + + + No medications | on file. | + + + + + | No agents on file. | + + + + | No blood administrations on file. | + + + + | No LDAs on file. | + + documented in this encounter Social History + + + +--------+ + | Tobacco Use | Types | Packs/Day | Years | Date | | | | | Used | | + + + +--------+ + | Former Smoker | Cigarettes | 0.3 | | Quit: 08/2017 | + + + +--------+ + + +---+---+---+ | Smokeless Tobacco: | | [...] | | 2020 | Visit | | [facility], [facility] [address] | | | | | | [place] | | | | | | [place] | | | | | | [address] | | | | | | | | +--------+---------+ + + + documented as of this encounter Visit Diagnoses Not on filedocumented in this encounter"
--- OUTSIDE RECORDS SUMMARY | ~2019-11-08 | XMS | Encounter Summary ---
Demographics + + + | Address | [address] | | | [place] [address] | + + + | Home Phone | | + + + | Preferred Language | Unknown | + + + | Marital Status | Single | + + + | Episcopal Affiliation | CHR | + + + [...] | | | | | [place] [address] | | + + + + + Care Team Providers + +------+ + | Care Hotel Registration Clerk Name | Role | Phone | + +------+ + | Serena Barroso | PCP | | + +------+ + Encounter Details +--------+ + + + + | Date | Type | Department | Care Team | Description | +--------+ + + + + | 11/05/ | Documentati | Anesthesiology | Unknown . | | | 2006 | on | [address] | | | | | | [place], | | | | | | [place] [address] | | | +--------+ + + + [...] | + +--------+ + + + | ANESTHESIA/SEDATION | | 11/05/2005 | | Results for this | | | | 10:15 AM | | procedure are in the | | | | PST | | results section. | + +--------+ + + + documented in this encounter Results ANESTHESIA/SEDATION (11/05/2005 10:15 AM PST) + + + | Narrative | Performed At | + + + | Ordered by an unspecified provider. | | + + + + + | Transcriptions | + + | 11/05/2005 10:15 AM [facility] Anesthesia PostOp Report | | | | Patient: MATI SALGUERO Med Rec: [id number] Sex F Bdate: 1965 | | Date/Time Data | | Entered Into [facility] | | Anesth PostOp | | Surgery Date [id number] 11/05/05 10:15 | | Anesthesiologist MICAH NICHOLS 11/05/05 10:15 | | Resident Anesthesiolog ANTONY KIRK 11/05/05 10:15 | | | + + documented in this encounter Visit Diagnoses Not on filedocumented in this encounter"
--- OUTSIDE RECORDS SUMMARY | ~2019-11-08 | XMS | Encounter Summary ---
Demographics + + + | Address | [address] | | | [place] [address] | + + + | Home Phone | | + + + | Preferred Language | Unknown | + + + | Marital Status | | + + + | Mosque Affiliation | Unknown | + + + | Race | Unknown | + + + | Ethnic Group | Unknown | + + + Author + + + | Author | [facility] | | | and [place] | + + + | Organization | [facility] | | | and [...] [address] | | | | | , [address] | | + + + + + Care Team Providers + +------+ + | Care Viscosity Inspector Name | Role | Phone | + +------+ + PCP | Unavailable | + +------+ + Encounter Details +--------+ + + + + | Date | Type | Department | Care Team | Description | +--------+ + + + + | 07/23/ | Hospital | [facility] | | | | 2006 | Encounter | MED CTR EMERGENCY | | | | | | CENTER [address] | | | | | | [place] | | | | | | [address] | | | | | | [phone] | | | +--------+ + + + [...] | 12/02/ | Office | Gastroenterology | [facility], | | | 2020 | Visit | | [facility] [address] | | | | | | [address] | | | | | | [place] | | | | | | [address] | | | | | | | | +--------+---------+ + + + documented as of this encounter Visit Diagnoses Not on filedocumented in this encounter"
--- OUTSIDE RECORDS SUMMARY | ~2019-11-08 | XMS | Encounter Summary ---
Demographics + + + | Address | [address] | | | [place] [address] | + + + | Home Phone | | + + + | Preferred Language | Unknown | + + + | Marital Status | Single | + + + | Catholic Affiliation | CHR | + + + | Race | White | + + + | Ethnic Group | Not or | + + + Author + + + | Author | [facility] | + + + | Organization | [facility] | + + + | Address | Unknown | + + + | Phone | Unavailable | + + + Support + + + + + | Name | Relationship | Address | Phone | + + + + + | Darius Fields | HELEN | [address] | | | | | [place] [address] | | + + + + + Care Team Providers + +------+ + | Care Rv Repair Technician Name | Role | Phone | + +------+ + | Serena Barroso | PCP | | + +------+ + Reason for Visit + + + | Reason | Comments | + + + | [facility] | Catheters (lifetime supply) | | Equipment (DME) | | | Orders | | + + + Encounter Details +--------+ + + + + | Date | Type | Department | Care Team | Description | +--------+ + + + + | 08/16/ | Telephone | Urology Oncology | Kristie, | [facility] [facility] | | 2008 | | [address] | MD [place] | Equipment (DME) | | | | Mailcode: [id number] | | Orders (Catheters | | | | [facility] | | (lifetime supply)) | | | | and Healing, | | | | | | [address] | | | | | | Floor [place], [place] | | | | | | [address] | | | | | | [phone] | | | +--------+ + + + [...] tract | + + documented in this encounter"
--- OUTSIDE RECORDS SUMMARY | ~2019-11-08 | XMS | Clinical Summary ---
Demographics + + + | Address | [address] | | | [place] [address] | + + + | Home Phone | | + + + | Preferred Language | Unknown | + + + | Marital Status | Single | + + + | Sabianist Affiliation | CHR | + + + | Race | White | + + + | Ethnic Group | Not or | + + + Author + + + | Author | [facility] | + + + | Organization | [facility] | + + + | Address | Unknown | + + + | Phone | Unavailable | + + + Support + + + + + | Name | Relationship | Address | Phone | + + + + + | Darius Fields | ECON | [address] | | | | | [place] [address] | | + + + + + Care Team Providers + +------+ + | Care Wafer Mounter Name | Role | Phone | + +------+ + | Serena Barroso | PCP | | + +------+ + Source Comments RONNY is fully live on both EpicCare Ambulatory and EpicCare InPatient.[facility] Allergies + + + + + + | Active Allergy | Reactions | Severity | Noted | Comments | | | | | Date | | + + + + + + | Codeine | Hives | | 06/26/20 | | | | | | 06 | | + + + + + + | Latex | | High | 06/01/20 | | | | | | 09 | | + + + + + + | Penicillin G | Nausea/Vomiting | | 06/26/20 | | | | | | 06 | | + + + + + + Medications + + + +---------+------+------+-------+ | Medication | Sig | Dispensed | Refills | Star | End | Statu | | | | | | t | Date | s | | | | | | Date | | | + + + +---------+------+------+-------+ | ESTRACE 1 MG TAB | take 1 tablet (1mg) | | 0 | | | Activ | | | by oral route once | | | | | e | | | daily for 21 days | | | | | | | | off for 7 days, | | | | | | | | repeat cycle | | | | | | + + + +---------+------+------+-------+ | ALBUTEROL IN | None Entered | | 0 | | | Activ | | | | | | | | e | + + + +---------+------+------+-------+ | ADVAIR DISKUS IN | None Entered | | 0 | | | Activ | | | | | | | | e | + + + +---------+------+------+-------+ | LUBRICANTS | KY Jelly- Use as | 2 Tubes | 12 | 08/3 | | Activ | | TOPICALIndications: | directed | | | 1/20 | | e | | Bladder extrophy | | | | 06 | | | + + + +---------+------+------+-------+ | Trazodone HCl 50 | 1x daily | | 0 | | | Activ | | mg Oral Tablet | | | | | | e | + + + +---------+------+------+-------+ | diazepam 5 mg Oral | take 1 tablet (5 mg) | | 0 | | | Activ | | Tablet | by oral route 2 | | | | | e | | | times per day | | | | | | + + + +---------+------+------+-------+ | MACROBID ORAL | daily | | 0 | | | Activ | | | | | | | | e | + + + +---------+------+------+-------+ | cyclobenzaprine | Take 10 mg by mouth | | 0 | | | Activ | | (FLEXERIL) 10 mg | three times daily as | | | | | e | | Oral Tablet | needed. Do not use | | | | | | | | longer than 2-3 | | | | | | | | weeks. | | | | | | + + + +---------+------+------+-------+ | TRAMADOL HCL | Take by mouth as | | 0 | | | Activ | | (ULTRAM ORAL) | needed. | | | | | e | + + + +---------+------+------+-------+ | Catheter 14 Fr | Coude coloplast 14 | 110 | 11 | 02/0 | | Activ | | Misc | fr 16" | Each | | 3/20 | | e | | | | | | 10 | | | + + + +---------+------+------+-------+ | nitrofurantoin | Take by mouth. Take | 90 Cap | 1 | 04/0 | | Activ | | macro crystals | one capsule(100mg) | | | 2/20 | | e | | (MACRODANTIN) 100 mg | by mouth once a day | | | 10 | | | | Oral Capsule | | | | | | | + + + +---------+------+------+-------+ Active Problems + + + | Problem | Noted Date | + + + | Back pain | 07/02/2009 | + + + | Hydronephrosis | 07/02/2009 | + + + | Status of other artificial opening of urinary tract | 02/04/2008 | + + + | Renal insufficiency | 02/04/2008 | + + + | Bladder extrophy | 02/04/2008 | + + + Social History + + [...] recent travel history available. | + + Last Filed Vital Signs + + + [...] + + + + | Temperature | 36.7 C (98.1 F) | 07/30/2007 4:10 PM | | | | | PDT | | + + + + + | Respiratory Rate | 16 | 07/30/2007 4:10 PM | | | | | PDT [...] Height | 162.6 cm (5' 4") | 05/21/2007 3:50 PM | | | | | PDT | | + + + + + | Body Mass Index | 22.14 | 05/21/2007 3:50 PM | | | | | PDT | | + + + + + Plan of Treatment + + + + + | Health Maintenance | Due Date | Last Done | Comments | + + + + + | Pneumococcal | | | | | vaccination (1 of 1 | 2 | | | | - PPSV23) | | | | + + + + + | Influenza (Flu) | | | | | vaccination (#1) | 9 | | | + + + + + Results Not on filefrom Last 3 Months Insurance + +--------+ +--------+-------+---------+--------+ | Payer | Benefi | Subscriber | Effect | Phone | Address | Type | | | t Plan | ID | blaise | | | | | | / | | Dates | | | | | | Group | | | | | | + +--------+ +--------+-------+---------+--------+ | BILINGUAL SPEECH LANGUAGE PATHOLOGIST MEDICAID | BILINGUAL SPEECH LANGUAGE PATHOLOGIST | [id number] | 06/27/20 | | | Medica | | | CAREOR | | 12-Pre | | | id | | | | | sent | | | | | | HEALTH | | | | | | | | SHARE | | | | | | + +--------+ +--------+-------+---------+--------+ + +--------+ +--------+ + + | Guarantor Name | Accoun | Relation to | Date | Phone | Billing Address | | | t Type | Patient | of | | | | | | | | | | + +--------+ +--------+ + + | Samreen Zaragoza | Person | Self | [birth year] | [address] | | [place] | al/Fam | | 1965 | [phone] | [place] [address] | | | wilman | | | [address] (Home) | | + +--------+ +--------+ + + Advance Directives + + + + + | Type | Date Recorded | Patient | Explanation | | | | Alarm Technician | | + + + + + | Advance | | | | | Directives and | | | | | Living Will | | | | + + + + + | Power of | | | | | Drier Operator Helper | | | | + + + + +
--- OUTSIDE RECORDS SUMMARY | ~2019-11-08 | XMS | Encounter Summary ---
Demographics + + + | Address | [address] | | | [place] [address] | + + + | Home Phone | | + + + | Preferred Language | Unknown | + + + | Marital Status | | + + + | Zoroastrianism Affiliation | Unknown | + + + | Race | Unknown | + + + | Ethnic Group | Unknown | + + + Author + + + | Author | [facility] | | | and [place] | + + + | Organization | [facility] | | | and [...] #3 | | | | | , [id number] | | + + + + + Care Team Providers + +------+ + | Care Research Study Assistant Name | Role | Phone | + +------+ + | Francine Sanford NP | PCP | | + +------+ + Reason for Visit Auth/Cert +--------+--------+ + + + + | Status | Reason | Specialty | Diagnoses / | Referred By | Referred To | | | | | Procedures | Contact | Contact | +--------+--------+ + + + + | | | | Diagnoses | | | | | | | Right renal | | | | | | | atrophy | | | | | | | (N26.1) | | | | | | | Procedures | | | | | | | TX REMV | | | | | | | KIDNEY,COMPL | | | | | | | ICATED Open | | | | | | | Right | | | | | | | Nephrectomy | | | +--------+--------+ + + + + Encounter Details +--------+ + + + + | Date | Type | Department | Care Team | Description | +--------+ + + + + | 04/09/ | Anesthesia | [facility] | Court, | | | 2018 | Event | [facility] OP | Minh Can MD | | | | | [address] | [address] | | | | | [place] | [place] | | | | | [address] | [id number] | | | | | [phone] | | | | | | | Lebron Salazar MD | | | | | | [address] | | | | | | [place] | | | | | | [id number] | | | | | | | | +--------+ + + + + Anesthesia Record + + + + + | Procedure Name | Responsible | Anesthesia Start | Anesthesia Stop Time | | | Anesthesiologist | Time | | + + + + + | Open Right | Minh Can | 04/09/18 0922 | 04/09/18 1414 | | Nephrectomy (Right | [address] | | | | [place]) | | | | + + + + + +----+---+ + + | Da | T | Event | Comment | | te | i | | | | | m | | | | | e | | | +----+---+ + + | 06 | 0 | | | | /1 | 9 | | | | 4/ | 0 | | | | 20 | 8 | | | | 18 | | | | +----+---+ + + | | 0 | An Checkout | Pre-use anesthesia machine/equipment checkout. | | | 9 | | | | | 2 | | | | | 2 | | | +----+---+ + + | | 0 | An Start | Reassessment prior to anesthesia induction/procedure. | | | 9 | | | | | 2 | | | | | 2 | | | +----+---+ + + | | 0 | Block Start | | | | 9 | | | | | 2 | | | | | 8 | | | +----+---+ + + | | 0 | AN Block | | | | 9 | End | | | | 3 | | | | | 2 | | | +----+---+ + + | | 0 | Spinal Dose | | | | 9 | | | | | 3 | | | | | 2 | | | +----+---+ + + | | 0 | Preoxygenat | | | | 9 | ed | | | | 3 | | | | | 5 | | | +----+---+ + + | | 0 | An | | | | 9 | Induction | | | | 3 | | | | | 7 | | | +----+---+ + + | | 0 | An | | | | 9 | Intubation | | | | 4 | | | | | 0 | | | +----+---+ + + | | 0 | Antibiotic | | | | 9 | Given | | | | 4 | | | | | 3 | | | +----+---+ + + | | 0 | Quick Note | metop | | | 9 | | | | | 4 | | | | | 9 | | | +----+---+ + + | | 0 | [place] | | | | 9 | 43-degrees | | | | 5 | | | | | 0 | | | +----+---+ + + | | 1 | Pre-Procedu | | | | 0 | ral Timeout | | | | 0 | Completed | | | | 1 | | | +----+---+ + + | | 1 | First | | | | 0 | Inc/Proc St | | | | 0 | | | | | 3 | | | +----+---+ + + | | 1 | Quick Note | Capped PIV in L hand flushed - remains patent | | | 1 | | | | | 0 | | | | | 9 | | | +----+---+ + + | | 1 | [place] off | | | | 3 | | | | | 5 | | | | | 7 | | | +----+---+ + + | | 1 | AN No | TOF 4/4 with sustained tetanus. | | | 3 | Residual | | | | 5 | NMB | | | | 7 | | | +----+---+ + + | | 1 | Breathing | | | | 3 | Spontaneous | | | | 5 | ly | | | | 9 | | | +----+---+ + + | | 1 | Oropharynx | | | | 3 | Suctioned | | | | 5 | | | | | 9 | | | +----+---+ + + | | 1 | Moving | | | | 4 | Purposefull | | | | 0 | y | | | | 3 | | | +----+---+ + + | | 1 | Extubated | | | | 4 | Awake | | | | 0 | | | | | 3 | | | +----+---+ + + | | 1 | an stop | | | | 4 | data | | | | 0 | | | | | 3 | | | +----+---+ + + | | 1 | An Stop | Patient handed off to recovery nurse. | | | 1 | | | | | 4 | | | +----+---+ + + +------+ | Meds | +------+ + + + | Name | Total | + + + | midazolam | 2 mg | + + + | fentaNYL | 100 mcg | + + + | HYDROmorphone | 0.6 mg | + + + | lidocaine 2% | 100 mg | + + + | propofol (DIPRIVAN) injection | 240 mg | | (bolus) (20 mL) | | + + + | succinylcholine | 120 mg | + + + | rocuronium | 60 mg | + + + | dexamethasone | 10 mg | + + + | ondansetron | 4 mg | + + + | tranexamic acid | 1,000 mg | + + + | Phenylephrine 10mg/mL VIAL | 926.85 mcg | + + + | morphine (Intrathecal) | 200 mcg | + + + | bupivacaine 0.75% (Intrathecal) | 1.4 mL | + + + | ceFAZolin (ANCEF, KEFZOL) 100 | 4 g | | mg/mL IV syringe 2 g | | + + + | diphenhydrAMINE | 25 mg | + + + | famotidine | 20 mg | + + + | esmolol | 30 mg | + + + | metoprolol | 7 mg | + + + | sugammadex (BRIDION) injection (2 | 200 mg | | mL vial) | | + + + | lactated ringers (LR) infusion | 2,600 mL | + + + + + | Name | + + | N2O Flow Rate (L/Min) | + + | O2 Flow Rate (L/Min) | + + | Insp O2 | + + | Exp SEV | + + | Exp KATIA | + + | Air Flow Rate (L/Min) | + + + + | No blood administrations on file. | + + +--------+ + + + | Type | Details | Placement | Removal | +--------+ + + + | Periph | 04/09/18; 0840; Right; Hand; | 04/09/18 0840 by | 04/10/18 0900 by | | eral | [id number] catheter system; | Svetlana Coleman, | Ely Call RN | | IV | 18 gauge; Blood Bank; 1; right | RN | | | | forearm; distraction, intradermal | | | | | injection; site symptomatic; | | | | | 04/10/18; 0900 | | | +--------+ + + + | Periph | 04/09/18; 0950; Left; Proximal; | 04/09/18 0950 by | 04/10/18 0900 by | | eral | Wrist; [id number] catheter | Mercy Palacios RN | Ely Call RN | | IV | system; 18 gauge; 0; other (see | | | | | comments) (pt under care of | | | | | anesthesiology.); short term use; | | | | | 04/10/18; 0900 | | | +--------+ + + + | Airway | Placement Date: 04/09/18; | 04/09/18 1006 by | 04/09/18 1403 by | | | Placement Time: 1006 (created via | Richard Johnson | Minh Can | | | procedure documentation); Airway | MD [place] | [address] | | | Grade: 1; Successful Technique: | | | | | video scope; Laryngoscope Blade | | | | | Size: 3; Attempts: 1; Airway | | | | | Type: endotracheal; Size: 7; | | | | | Airway Tube Secured At: 20; | | | | | Trauma: none; Other Equipment: | | | | | stylette; Placement Check: | | | | | exhaled CO2 detection device, | | | | | bilateral chest rise, breath | | | | | sounds equal bilaterally; Removal | | | | | Date: 04/09/18; Removal Time: | | | | | 1403; Additional Comments: | | | | | Intubated by Hospitalist for | | | | | educational purposes. Soft bite | | | | | block placed after examining | | | | | airway for signs of trauma. | | | | | Atraumatic airway manipulation. | | | +--------+ + + + | Urethr | 04/09/18; 1049; indicated due to | 04/09/18 1049 by | 04/09/18 1451 by | | al | specific surgical procedure; All | Mercy Palacios RN | Richard Iverson, | | Cathet | elements; All elements; All | | RN | | er | elements; intermittent coude tip | | | | | catheter; latex; 14; Coiling of | | | | | catheter, Other (specify) (placed | | | | | sterile during surgery per | | | | | surgeon. placed into urinary | | | | | stoma.); 2; 10; 10; other (see | | | | | comments) (pt under care of | | | | | anesthesiology); drainage bag to | | | | | dependent drainage; pt has | | | | | suprapubic catheter, not | | | | | urethral; 04/09/18; 1451 | | | +--------+ + + + | Read | 04/09/18; 1411; Right; abdomen; | 04/09/18 1411 by | 04/14/18 1200 by | | only - | healing within expectations; | Mercy Palacios RN | Tete Mancera RN | | | 04/14/18; 1200 | | | | Incisi | | | | | on | | | | +--------+ + + + documented in this encounter Social [...] | 12/02/ | Office | Gastroenterology | [facility], | | | 2020 | Visit | | CRISTHIAN Carbone [address] | | | | | | [address] | | | | | | [place] | | | | | | [id number] | | | | | | | | +--------+---------+ + + + documented as of this encounter Procedures + +--------+ + + + | Procedure Name | Priori | Date/Time | Associated Diagnosis | Comments | | | ty | | | | + +--------+ + + + | ANE EPIDURAL NOTE | Routin | 04/09/2018 | | Results for this | | | e | 11:57 AM | | procedure are in the | | | | PDT | | results section. | + +--------+ + + + | ANE AIRWAY NOTE | Routin | 04/09/2018 | | Results for this | | | e | 10:06 AM | | procedure are in the | | | | PDT | | results section. | + +--------+ + + + documented in this encounter Results Anesthesia Epidural Note (04/09/2018 11:57 AM PDT) + + + | Narrative | Performed At | + + + | Richard Quinn MD 04/09/2018 11:57 Neuraxial Procedure | | | Note Procedure: single-shot spinal anesthesia Provider requested | | | procedure: Dr. Gonzalez Indication: surgical anesthesia and | | | postoperative analgesia Preprocedure check: patient identified, | | | procedure and rescue equipment checked, preevaluation including | | | airway assessment complete, risks/benefits discussed, consent | | | obtained, timeout performed, reassessment prior to procedure and | | | monitors applied Patient position: sitting Preparation: | | | chlorhexidine/isopropyl alcohol, Introducer used: yes Local | | | anesthetic infiltration volume: 3 mL Procedure level: L3-4 Approach: | | | midline Needle: pencil-point Needle size: 25 g Needle length: 9 cm | | | Medication administered through: needle Positive findings: CSF | | | aspirated Attempts: 1 Ease of procedure: easy Performing provider: | | | RICHARD QUINN Comments: Monitors placed prior to start of | | | spinal procedure. Cap, mask, sterile gloves, and sterile technique | | | used for procedure. Patient positioned in the sitting position | | | with assistance of RN. Landmarks identified, chloroprep administered | | | to skin and allowed to dry. Sterile drape applied. Local anesthetic | | | administered at the skin and introducer placed. Through the | | | introducer, spinal needle advanced until CSF returned. With syringe | | | attached, positive "swirl sign" observed within medication and dose | | | administered with no resistance. At the conclusion of the | | | procedure, patient positioned supine with appropriate sympathetic | | | and analgesic response. Procedure well tolerated by patient, | | | conversant throughout but needed versed for anxiety. Please see | | | anesthesia record or flowsheet for vital sign documentation and see | | | anesthesia record or MAR for all medication documentation. | | | Electronically Signed by: Richard Quinn MD | | | ESig date/time: 04/09/2018 11:57 | | + + + + + | Procedure Note | + + | Richard Quinn MD - 04/09/2018 11:57 AM PDT Neuraxial Procedure | | NoteProcedure: single-shot spinal anesthesiaProvider requested procedure: Dr. | | SpendloveIndication: surgical anesthesia and postoperative analgesiaPreprocedure check: | | patient identified, procedure and rescue equipment checked, preevaluation including | | airway assessment complete, risks/benefits discussed, consent obtained, timeout | | performed, reassessment prior to procedure and monitors appliedPatient position: | | sittingPreparation: chlorhexidine/isopropyl alcohol, Introducer used: yesLocal | | anesthetic infiltration volume: 3 mLProcedure level: L3-4Approach: midlineNeedle: | | pencil-pointNeedle size: 25 gNeedle length: 9 cmMedication administered through: | | needlePositive findings: CSF aspiratedAttempts: 1Ease of procedure: easyPerforming | | provider: RICHARD QUINNComments: Monitors placed prior to start of spinal | | procedure. Cap, mask, sterile gloves, and sterile technique used for procedure.Patient | | positioned in the sitting position with assistance of RN. Landmarks identified, | | chloroprep administered to skin and allowed to dry. Sterile drape applied. Local | | anesthetic administered at the skin and introducer placed. Through the introducer, | | spinal needle advanced until CSF returned. With syringe attached, positive "swirl sign" | | observed within medication and dose administered with no resistance.At the conclusion of | | the procedure, patient positioned supine with appropriate sympathetic and analgesic | | response.Procedure well tolerated by patient, conversant throughout but needed versed | | for anxiety.Please see anesthesia record or flowsheet for vital sign documentation and | | see anesthesia record or MAR for all medication documentation. Electronically Signed by: | | Richard Quinn MD ESig date/time: 04/09/2018 11:57 | |Patient positioned in the sitting position with assistance of RN. Landmarks identified, chl oroprep administered to skin and allowed to dry. Sterile drape applied. Local anesthetic adm inistered at the skin and | |introducer placed. Through the introducer, spinal needle advanced until CSF returned. With syringe attached, positive "swirl sign" observed within medication and dose administered wit h no resistance. | | | |At the conclusion of the procedure, patient positioned supine with appropriate sympathetic and analgesic response. | | | |Procedure well tolerated by patient, conversant throughout but needed versed for anxiety. | | | |Please see anesthesia record or flowsheet for vital sign documentation and see anesthesia r ecord or [facility] for all medication documentation. | | | |Electronically Signed by: MD Ana Rosa Hopkins date/time: 04/09/2018 11:57 | + + Anesthesia Airway Note (04/09/2018 10:06 AM PDT) + + + | Narrative | Performed At | + + + | Richard Quinn MD 04/09/2018 10:06 Anesthesia Airway | | | Placement Preprocedure check: patient identified, oxygen, airway | | | assessed, suction, airway equipment checked and patient reassessment | | | prior to induction Successful technique: videoscope Laryngoscope | | | blade size: 3 Airway grade: 1 (Full view of glottis) Other | | | equipment: stylette Attempts: 1 Airway type: endotracheal Size: 7 | | | Cuffed: cuffed Route, reference point: right side of mouth Tube | | | depth: 20 cm Tube secured with: adhesive tape Trauma: none Tube | | | placement verification: bilateral chest rise, equal bilateral breath | | | sounds and carbon dioxide detection Performing provider: [place], | | | RICHARD JOHNSON Comments: Intubated by Hospitalist for educational | | | purposes. Soft bite block placed after examining airway for signs of | | | trauma. Atraumatic airway manipulation. Electronically | | | Signed by: Richard Quinn MD | | | ESig date/time: 04/09/2018 10:06 | | + + + + + | Procedure Note | + + | Richard Quinn MD - 04/09/2018 10:06 AM PDT Anesthesia Airway | | PlacementPreprocedure check: patient identified, oxygen, airway assessed, suction, | | airway equipment checked and patient reassessment prior to inductionSuccessful | | technique: videoscopeLaryngoscope blade size: 3 Airway grade: 1 (Full view of | | glottis)Other equipment: styletteAttempts: 1Airway type: endotrachealSize: 7Cuffed: | | cuffedRoute, reference point: right side of mouthTube depth: 20 cmTube secured with: | | adhesive tapeTrauma: noneTube placement verification: bilateral chest rise, equal | | bilateral breath sounds and carbon dioxide detectionPerforming provider: RICHARD QUINN | | ELIZABETHComments: Intubated by Hospitalist for educational purposes.Soft bite block | | placed after examining airway for signs of trauma. Atraumatic airway | | manipulation.Electronically Signed by: Richard Quinn MD | | ESig date/time: 04/09/2018 10:06 | |Tube depth: 20 cm | |Tube secured with: adhesive tape | |Trauma: none | |Tube placement verification: bilateral chest rise, equal bilateral breath sounds and carbon dioxide detection | |Performing provider: RICHARD QUINN | | | |Comments: Intubated by Hospitalist for educational purposes. | |Soft bite block placed after examining airway for signs of trauma. | |Atraumatic airway manipulation. | | | | | |Electronically Signed by: Richard Quinn MD ESi date/time: 10:06 | | | + + documented in this encounter Visit Diagnoses Not on filedocumented in this encounter Administered Medications + +--------+ +---------+------+------+ | Medication Order | MAR | Action | Dose | Rate | Site | | | Action | Date | | | | + +--------+ +---------+------+------+ | bupivacaine 0.75%-dextrose | Given | 04/09/20 | 1.4 mLs | | | | 8.25% (MARCAINE SPINAL) injection | | 18 9:32 | | | | | INTRATHECAL, PRN, Starting [facility] | | AM PDT | | | | | 04/09/18 at 0932, Anesthesia | | | | | | | Intra-op | | | | | | + +--------+ +---------+------+------+ +---+---+ | | | +---+---+ + +-------+ +-----+---+---+ | ceFAZolin (ANCEF, KEFZOL) 100 | Given | 04/09/20 | 2 g | | | | mg/mL IV syringe 2 g 2 g, | | 18 1:38 | | | | | Intravenous, Administer over 30 | | PM PDT | | | | | Minutes, Prior to Incision, | | | | | | | Starting [facility] 04/09/18 at 0411, For | | | | | | | 1 dose, Pre-op, Indications: | | | | | | | Surgical Prophylaxis | | | | | | + +-------+ +-----+---+---+ +-------+ +-----+---+---+ | Given | 04/09/20 | 2 g | | | | | 18 9:43 | | | | | | AM PDT | | | | +-------+ +-----+---+---+ +---+---+ | | | +---+---+ + +-------+ +-------+---+---+ | dexamethasone (PF) 10 mg/mL | Given | 04/09/20 | 10 mg | | | | injection Intravenous, PRN, | | 18 9:37 | | | | | Starting [facility] 04/09/18 at 0937, | | AM PDT | | | | | Anesthesia Intra-op | | | | | | + +-------+ +-------+---+---+ +---+---+ | | | +---+---+ + +-------+ +-------+---+---+ | diphenhydrAMINE (BENADRYL) | Given | 04/09/20 | 25 mg | | | | injection Intravenous, PRN, | | 18 10:05 | | | | | Itching, Starting [facility] 04/09/18 at | | AM PDT | | | | | 1005, Anesthesia Intra-op | | | | | | + +-------+ +-------+---+---+ +---+---+ | | | +---+---+ + +-------+ +-------+---+---+ | esmolol (BREVIBLOC) 10 mg/mL | Given | 04/09/20 | 30 mg | | | | injection Intravenous, PRN, | | 18 9:43 | | | | | Starting [facility] 04/09/18 at 0943, | | AM PDT | | | | | Anesthesia Intra-op | | | | | | + +-------+ +-------+---+---+ +---+---+ | | | +---+---+ + +-------+ +-------+---+---+ | famotidine (PEPCID) injection | Given | 04/09/20 | 20 mg | | | | Intravenous, PRN, Heartburn, | | 18 10:05 | | | | | Starting [facility] 04/09/18 at 1005, | | AM PDT | | | | | Anesthesia Intra-op | | | | | | + +-------+ +-------+---+---+ +---+---+ | | | +---+---+ + +-------+ +--------+---+---+ | fentaNYL (PF) injection | Given | 04/09/20 | 50 mcg | | | | Intravenous, PRN, Pain, Starting | | 18 11:05 | | | | | [facility] 04/09/18 at 0935, Anesthesia | | AM PDT | | | | | Intra-op | | | | | | + +-------+ +--------+---+---+ +-------+ +--------+---+---+ | Given | 04/09/20 | 50 mcg | | | | | 18 9:35 | | | | | | AM PDT | | | | +-------+ +--------+---+---+ +---+---+ | | | +---+---+ + +-------+ +--------+---+---+ | HYDROmorphone (DILAUDID) 2 | Given | 04/09/20 | 0.2 mg | | | | mg/mL injection Intravenous, | | 18 1:59 | | | | | PRN, Pain, Starting [facility] 04/09/18 | | PM PDT | | | | | at 1341, Anesthesia Intra-op | | | | | | + +-------+ +--------+---+---+ +-------+ +--------+---+---+ | Given | 04/09/20 | 0.4 mg | | | | | 18 1:41 | | | | | | PM PDT | | | | +-------+ +--------+---+---+ +---+---+ | | | +---+---+ + +---------+ +---+---+---+ | lactated ringers (LR) infusion | New Bag | 04/09/20 | | | | | at 10-100 mL/hr, Intravenous, | | 18 12:30 | | | | | CONTINUOUS, Starting [facility] 04/09/18 | | PM PDT | | | | | at 0830, TKO., Pre-op | | | | | | + +---------+ +---+---+---+ +---------+ +--------+-------+---+ | New Bag | 04/09/20 | | | | | | 18 10:03 | | | | | | AM PDT | | | | +---------+ +--------+-------+---+ | New Bag | 04/09/20 | 1,000 | 100 | | | | 18 8:41 | mLs | mL/hr | | | | AM PDT | | | | +---------+ +--------+-------+---+ +---+---+ | | | +---+---+ + +-------+ +--------+---+---+ | lidocaine (PF) 2% injection | Given | 04/09/20 | 100 mg | | | | Intravenous, PRN, Starting [facility] | | 18 9:37 | | | | | 04/09/18 at 0937, Anesthesia | | AM PDT | | | | | Intra-op | | | | | | + +-------+ +--------+---+---+ +---+---+ | | | +---+---+ + +-------+ +------+---+---+ | metoprolol tartrate (LOPRESSOR) | Given | 04/09/20 | 2 mg | | | | injection Intravenous, PRN, | | 18 1:56 | | | | | Starting [facility] 04/09/18 at 0949, | | PM PDT | | | | | Anesthesia Intra-op | | | | | | + +-------+ +------+---+---+ +-------+ +------+---+---+ | Given | 04/09/20 | 2 mg | | | | | 18 10:30 | | | | | | AM PDT | | | | +-------+ +------+---+---+ | Given | 04/09/20 | 3 mg | | | | | 18 9:49 | | | | | | AM PDT | | | | +-------+ +------+---+---+ +---+---+ | | | +---+---+ + +-------+ +------+---+---+ | midazolam (VERSED) 1 mg/mL | Given | 04/09/20 | 2 mg | | | | injection Intravenous, PRN, | | 18 9:27 | | | | | Anxiety, Starting [facility] 04/09/18 at | | AM PDT | | | | | 0927, Anesthesia Intra-op | | | | | | + +-------+ +------+---+---+ +---+---+ | | | +---+---+ + +-------+ +---------+---+---+ | morphine (PF) (DURAMORPH) 0.5 | Given | 04/09/20 | 200 mcg | | | | mg/mL injection INTRATHECAL, | | 18 9:32 | | | | | PRN, Pain, Starting [facility] 04/09/18 | | AM PDT | | | | | at 0932, Anesthesia Intra-op | | | | | | + +-------+ +---------+---+---+ +---+---+ | | | +---+---+ + +-------+ +------+---+---+ | ondansetron (ZOFRAN) injection | Given | 04/09/20 | 4 mg | | | | Intravenous, PRN, Nausea, | | 18 9:27 | | | | | Vomiting, Starting [facility] 04/09/18 at | | AM PDT | | | | | 0927, Anesthesia Intra-op | | | | | | + +-------+ +------+---+---+ +---+---+ | | | +---+---+ + + + + +-------+---+ | phenylephrine (RITA-SYNEPHRINE) | Restarte | 04/09/20 | 0.15 | 0.1 | | | 10 mg/mL injection Intravenous, | d | 18 12:53 | mcg/kg/m | mL/hr | | | CONTINUOUS PRN, Starting [facility] | | PM PDT | in | | | | 04/09/18 at 1003, Anesthesia | | | | | | | Intra-op | | | | | | + + + + +-------+---+ + + + +-------+---+ | Rate/Dose Change | 04/09/20 | 0.1 | 0.1 | | | | 18 10:53 | mcg/kg/m | mL/hr | | | | AM PDT | in | | | + + + +-------+---+ | Rate/Dose Change | 04/09/20 | 0.15 | 0.1 | | | | 18 10:34 | mcg/kg/m | mL/hr | | | | AM PDT | in | | | + + + +-------+---+ +---+---+ | | | +---+---+ + +-------+ +-------+---+---+ | propofol (DIPRIVAN) injection | Given | 04/09/20 | 40 mg | | | | Intravenous, PRN, Starting [facility] | | 18 1:52 | | | | | 18 at 0937, Anesthesia | | PM PDT | | | | | Intra-op | | | | | | + +-------+ +-------+---+---+ +-------+ +--------+---+---+ | Given | 04/09/20 | 200 mg | | | | | 18 9:37 | | | | | | AM PDT | | | | +-------+ +--------+---+---+ +---+---+ | | | +---+---+ + +-------+ +-------+---+---+ | rocuronium (ZEMURON) injection | Given | 04/09/20 | 10 mg | | | | Intravenous, PRN, Starting [facility] | | 18 12:47 | | | | | 04/09/18 at 0959, Anesthesia | | PM PDT | | | | | Intra-op | | | | | | + +-------+ +-------+---+---+ +-------+ +-------+---+---+ | Given | 04/09/20 | 20 mg | | | | | 18 11:48 | | | | | | AM PDT | | | | +-------+ +-------+---+---+ | Given | 04/09/20 | 10 mg | | | | | 18 10:56 | | | | | | AM PDT | | | | +-------+ +-------+---+---+ +---+---+ | | | +---+---+ + +-------+ +--------+---+---+ | succinylcholine (ANECTINE) | Given | 04/09/20 | 120 mg | | | | injection Intravenous, PRN, | | 18 9:37 | | | | | Starting [facility] 04/09/18 at 0937, | | AM PDT | | | | | Anesthesia Intra-op | | | | | | + +-------+ +--------+---+---+ +---+---+ | | | +---+---+ + +-------+ +--------+---+---+ | sugammadex (BRIDION) injection | Given | 04/09/20 | 200 mg | | | | PRN, Starting [facility] 04/09/18 at | | 18 1:48 | | | | | 1348, Anesthesia Intra-op | | PM PDT | | | | + +-------+ +--------+---+---+ +---+---+ | | | +---+---+ + +-------+ + +---+---+ | tranexamic acid (CYKLOKAPRON) | Given | 04/09/20 | 1,000 mg | | | | injection Intravenous, | | 18 9:45 | | | | | Administer over 15 Minutes, PRN, | | AM PDT | | | | | Starting [facility] 04/09/18 at 0945, | | | | | | | Anesthesia Intra-op | | | | | | + +-------+ + +---+---+ +---+---+ | | | +---+---+ documented in this encounter
--- OUTSIDE RECORDS SUMMARY | ~2019-11-08 | XMS | Encounter Summary ---
Demographics + + + | Address | [address] | | | [place] [address] | + + + | Home Phone | | + + + | Preferred Language | Unknown | + + + | Marital Status | | + + + | Amish Affiliation | Unknown | + + + | Race | Unknown | + + + | Ethnic Group | Unknown | + + + Author + + + | Author | [facility] | | | and [place] | + + + | Organization | [facility] | | | and [place] | + + + | Address | Unknown | + + + | Phone | Unavailable | + + + Support + + + + + | Name | Relationship | Address | Phone | + + + + + | Darius Fields | ECON | [address] | | | | | , [address] | | + + + + + Care Team Providers + +------+ + | Care Room Inspector Name | Role | Phone | + +------+ + PCP | Unavailable | + +------+ + Encounter Details +--------+ + + + + | Date | Type | Department | Care Team | Description | +--------+ + + + + | 05/30/ | Hospital | [facility] | | | | 2006 | Encounter | [facility] | | | | | | CENTER [address] | | | | | | [place] | | | | | | [address] | | | | | | [phone] | | | +--------+ + + + [...] | 12/02/ | Office | Gastroenterology | [facility], | | | 2020 | Visit | | CRISTHIAN Carbone [address] | | | | | | [address] | | | | | | [place] | | | | | | [address] | | | | | | | | +--------+---------+ + + + documented as of this encounter Visit Diagnoses Not on filedocumented in this encounter"
--- OUTSIDE RECORDS SUMMARY | ~2019-11-08 | XMS | Encounter Summary ---
Demographics + + + | Address | [address] | | | [place] [address] | + + + | Home Phone | | + + + | Preferred Language | Unknown | + + + | Marital Status | Single | + + + | Shinto Affiliation | CHR | + + + | Race | White | + + + | Ethnic Group | Not or | + + + Author + + + | Author | [facility] | + + + | Organization | [facility] | + + + | Address | Unknown | + + + | Phone | Unavailable | + + + Support + + + + + | Name | Relationship | Address | Phone | + + + + + | Darius Fields | HELEN | [address] | | | | | [place] [address] | | + + + + + Care Team Providers + +------+ + | Care Laborer Plumbing Name | Role | Phone | + +------+ + | Serena Barroso | PCP | | + +------+ + Reason for Visit + + + | Reason | Comments | + + + | Refill Request | | + + + Encounter Details +--------+--------+ + + + | Date | Type | Department | Care Team | Description | +--------+--------+ + + + | 01/26/ | Refill | Urology Oncology | Hollie Logan, | Refill Request | | 2009 | | [address] | Blue Smith MD 6 | | | | | Mailcode: CH10U | [facility] | | | | | [facility] | [address] | | | | | and Healing, | [place] [address] | | | | | Building | [phone] | | | | | Floor [place], [place] | | | | | | [address] | | | | | | [phone] | | | +--------+--------+ + + + Social History + + [...]
--- OUTSIDE RECORDS SUMMARY | ~2019-11-08 | XMS | Encounter Summary ---
Demographics + + + | Address | [address] | | | [place] [address] | + + + | Home Phone | | + + + | Preferred Language | Unknown | + + + | Marital Status | | + + + | Mormonism Affiliation | Unknown | + + + | Race | Unknown | + + + | Ethnic Group | Unknown | + + + Author + + + | Author | [facility] | | | and [place] | + + + | Organization | [facility] | | | and [place] | + + + | Address | Unknown | + + + | Phone | Unavailable | + + + Support + + + + + | Name | Relationship | Address | Phone | + + + + + | Darius Diamond CERVANTES | [address] | | | | | , [address] | | + + + + + Care Team Providers + +------+ + | Care Caster Helper Name | Role | Phone | + [...] | | | | | [address] [place] | [address] [place] | | | | | [place] [address] | [place] [address] | | | | | [phone] | [phone] | | | | | | | [...] | 2020 | Visit | | [place], [address] | | | | | | [address] | | | | | | [place] | | | | | | [address] | | | | | | | | +--------+---------+ + + + documented as of this encounter Visit Diagnoses Not on filedocumented in this encounter"
--- OUTSIDE RECORDS SUMMARY | ~2019-11-08 | XMS | Encounter Summary ---
Demographics + + + | Address | [address] | | | [place] [address] | + + + | Home Phone | | + + + | Preferred Language | Unknown | + + + | Marital Status | | + + + | Protestant Affiliation | Unknown | + + + | Race | Unknown | + + + | Ethnic Group | Unknown | + + + Author + + + | Author | [facility] | | | and [place] | + + + | Organization | [facility] | | | and [place] | + + + | Address | Unknown | + + + | Phone | Unavailable | + + + Support + + + + + | Name | Relationship | Address | Phone | + + + + + | Darius Fields | HELEN | [address] | | | | | , [address] | | + + + + + Care Team Providers + +------+ + | Care Atmospheric Physics Professor Name | Role | Phone | + +------+ + | Francine Sanford NP | PCP | | + +------+ + Reason for Visit + + + | Reason | Comments | + + + | Urology Appointment | | + + + | Incontinence | | | Supplies | | + + + Encounter Details +--------+ + + + + | Date | Type | Department | Care Team | Description | +--------+ + + + + | 04/28/ | Telephone | [facility] | Toi Gonzalez | Urology Appointment; | | 2017 | | [address] | MD Leighann [address] | Incontinence | | | | [place], [place] | [place], [place] | Supplies | | | | [address] | [address] | | | | | [phone] | | | +--------+ + + + + Social History + + + +--------+ + [...] + + documented as of this encounter Functional Status + + + + | Functional Status | Response | Date of Assessment | + + + + | Are you deaf or do you have serious | No | 04/14/2018 | | difficulty hearing? | | | + + + + | Are you blind or do you have serious | No | 04/14/2018 | | difficulty seeing, even when wearing | | | | glasses? | | | + + + + | Do you have serious difficulty walking or | No | 04/14/2018 | | climbing stairs? (5 years old or older) | | | + + + + | Do you have difficulty dressing or bathing? | No | 04/14/2018 | | (5 years old or older) | | | + + + + | Because of a physical, mental, or emotional | No | 04/14/2018 | | condition, do you have difficulty doing | | | | errands alone such as visiting a doctor's | | | | office or shopping? [15 years old or | | | | older)] | | | + + + + + + + + | Cognitive Status | Response | Date of Assessment | + + + + | Because of a physical, mental, or emotional | No | 04/14/2018 | | condition, do you have serious difficulty | | | | concentrating, remembering, or making | | | | decisions? (5 years old or older) | | | + + + + documented as of this encounter Plan of Treatment +--------+---------+ + + + | Date | Type | Specialty | Care Team | Description | +--------+---------+ + + + | 12/02/ | Office | Gastroenterology | [facility], | | | 2019 | Visit | | CRISTHIAN Carbone [address] | | | | | | [address] | | | | | | [place] | | | | | | [id number] | | | | | | | | +--------+---------+ + + + documented as of this encounter Visit Diagnoses Not on filedocumented in this encounter"
--- OUTSIDE RECORDS SUMMARY | ~2019-11-08 | XMS | Encounter Summary ---
Demographics + + + | Address | [address] | | | [place] [address] | + + + | Home Phone | | + + + | Preferred Language | Unknown | + + + | Marital Status | Single | + + + | Denominational Affiliation | CHR | + + + [...] | | | | | [place] [address] | | + + + + + Care Team Providers + +------+ + | Care Hazardous Materials Waste Technician Name | Role | Phone | + +------+ + | Serena Barroso | PCP | | + +------+ + Reason for Visit + + + | Reason | Comments | + + + | Abdominal pain | | + + + Encounter Details +--------+ + + + + | Date | Type | Department | Care Team | Description | +--------+ + + + + | 12/22/ | Telephone | Urology Oncology | [place], | Abdominal pain | | 2008 | | [address] | MD Reinaldo | | | | | Mailcode: [id number] | | | | | | [facility] | | | | | | and [place], | | | | | | [facility] | | | | | | [place], [place] | | | | | | [address] | | | | | | [phone] | | | +--------+ + + + [...]
--- OUTSIDE RECORDS SUMMARY | ~2019-11-08 | XMS | Encounter Summary ---
Demographics + + + | Address | [address] | | | [place] [address] | + + + | Home Phone [...] | | | | | [place] [address] | | + + + + + Care Team Providers + +------+ + | Care Turn Down Man Name | Role | Phone | + +------+ + | Serena Barroso | PCP | | + +------+ + Reason for Visit + + + | Reason | Comments | + + + | DME phone follow-up | | + + + Encounter Details +--------+ + + + + | Date | Type | Department | Care Team | Description | +--------+ + + + + | 12/21/ | Telephone | Urology Adult | Clinic, | DME phone follow-up | | 2009 | | [address] | Urology/Oncology | | | | | Mailcode: [id number] | | | | | | [facility] | | | | | | and Healing, | | | | | | Building [address] | | | | | | Floor [place], [place] | | | | | | [address] | | | | | | [phone] | | | +--------+ + + + [...]
--- OUTSIDE RECORDS SUMMARY | ~2019-11-08 | XMS | Encounter Summary ---
Demographics + + + | Address | [address] | | | [place] [address] | + + + | Home Phone | | + + + | Preferred Language | Unknown | + + + | Marital Status | Single | + + + | Anglican Affiliation | CHR | + + + | Race | White | + + + | Ethnic Group | Not or | + + + Author + + + | Organization | Unknown | + + + | Address | Unknown | + + + | Phone | Unavailable | + + + Support + + + + + | Name | Relationship | Address | Phone | + + + + + | Darius Fields | [address] | | | | | [place] [address] | | + + + + + Care Team Providers + +------+ + | Care Insolvency Practitioner Name | Role | Phone | + +------+ + PCP | Unavailable | + +------+ + Encounter Details +--------+ + + + + | Date | Type | Department | Care Team | Description | +--------+ + + + + | 08/13/ | [facility] | | Letter, Clinic | Letters | | 2005 | scribed | | | | +--------+ + + [...] documented as of this encounter Progress Notes Interface, Sales Support Representative In - 08/15/2005 5:03 AM PDT [id number] 08/13/2005 08/13/2005 [id number] NOEMY Smith [facility] [address] [place] [address] or August 13, 2005 Rona Lyons M.D. [address] [place] [address] RE: MATI SALGUERO MR #: [id number] Dear Dr. Rea: Thank you for referring Ms. 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 I saw her today with our chief resident, Dr. Arnie Stoddard, who has dictated a separate detailed report of the encounter. I will briefly summarize her history here for our records. She is a 40-year-old woman with a history of bladder exstrophy which was treated initially by excision of her bladder and creation of an ileal conduit. This was later converted to Kock [place] [address] Desmond Ley. She has a history of a small, scarred right kidney but this was clearly functioning on her CT scan. She has had multiple urinary tract infections that are controllable with antibiotic suppression. Approximately 6 months ago, she underwent endoscopic removal of some pouch stones by yourself. Several months after that, she started having problems with stomal incontinence and then difficulty catheterizing requiring cystoscopy for catheter placement. She now comes to us with a 16-Central African catheter which she says plugs easily. Upon irrigation of the catheter today, we had return of 550 mL of clear urine. I spent a considerable length of time with her and her significant other discussing the various options that are available to her at this time. I do not think this is amenable to any kind of endoscopic procedure, and what she really needs is a revision of her Kock pouch. 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 I told her that there are one of two options here; she can either be converted back to an ileal conduit which will be the more simpler method of diversion versus creation of another continent catheterizable stoma. 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 Other options would include revision of the pouch with reconstruction of the efferent limb versus use of the ileocecal valve as the continent catheterizable stoma. I told her that we would need to determine all of this intraoperatively. One thing she is absolutely intent on is not having an ileal conduit form of diversion. I spent some time describing the risks of the procedure which include but are not limited to continued stomal incontinence (less than 5%) stomal stenosis (less than 15%), urine leak bowel leak (less than 1%), infection, and small-bowel obstruction. She is in otherwise good health but has a heavy smoking history. I have asked her to stop smoking since this will significantly increase her chances of pulmonary complications in the postoperative period. We will be scheduling her case over the next few weeks, and I will write to you again when she has been discharged. Thank you very much. Sincerely, Reinaldo Flowers M.D. NORBERTO / PRAVIN [id number] / [id number] / [id number] / [id number] documented i n this encounter Plan of Treatment Not on filedocumented as of this encounter Visit Diagnoses Not on filedocumented in this encounter"
--- OUTSIDE RECORDS SUMMARY | ~2019-11-08 | XMS | Encounter Summary ---
Demographics + + + | Address | [address] | | | [place] [address] | + + + | Home Phone | | + + + | Preferred Language | Unknown | + + + | Marital Status | | + + + | Jainism Affiliation | Unknown | + + + | Race | Unknown | + + + | Ethnic Group | Unknown | + + + Author + + + | Author | [facility] | | | and [place] | + + + | Organization | [facility] | [...] [address] | | | | | , [address] | | + + + + + Care Team Providers + +------+ + | Care Neon Electrician Name | Role | Phone | + +------+ + | Francine Sanford NP | PCP | | + +------+ + Encounter Details +--------+ + + + + | Date | Type | Department | Care Team | Description | +--------+ + + + + | 03/18/ | Episode | [facility] | Amina Jaquez | | | 2017 | Changes | [address] | | | | | [place], [place] | | | | | | [address] | | | | | | [phone] | | | +--------+ + + + [...] | 12/02/ | Office | Gastroenterology | [facility], | | | 2020 | Visit | | CRISTHIAN Carbone [address] | | | | | | [address] | | | | | | [place] | | | | | | [address] | | | | | | | | +--------+---------+ + + + documented as of this encounter Visit Diagnoses Not on filedocumented in this encounter"
--- OUTSIDE RECORDS SUMMARY | ~2019-11-08 | XMS | Clinical Summary ---
Demographics + + + | Address | [address] | | | [address] | | | [place] [address] | + + + | Home Phone [...] Author | [facility] (Historical as of | | | 06-12-19) | + + + | Organization | [facility] (Historical as of | | | 06-12-19) [...] Team Providers + +------+ + | Care Collet Gluer Name | Role | Phone | + [...]
--- OUTSIDE RECORDS SUMMARY | ~2019-11-08 | XMS | Encounter Summary ---
Demographics + + + | Address | [address] | | | [place] [address] | + + + | Home Phone | | + + + | Preferred Language | Unknown | + + + | Marital Status | Single | + + + | Restorationist Affiliation | CHR | + + + | Race | White | + + + | Ethnic Group | Not or | + + + Author + + + | Author | [facility] | + + + | Organization | [facility] | + + + | Address | Unknown | + + + | Phone | Unavailable | + + + Support + + + + + | Name | Relationship | Address | Phone | + + + + + | Darius Fields | HELEN | [address] | | | | | [place] [address] | | + + + + + Care Team Providers + +------+ + | Care Traffic Signal Supervisor Maintenance Name | Role | Phone | + +------+ + | Serena Barroso | PCP | | + +------+ + Encounter Details +--------+ + + + + | Date | Type | Department | Care Team | Description | +--------+ + + + + | 09/12/ | Ancillary | Registration [id number] | | | | 2004 | Registratio | [address] | | | | | n | Monster Mailcode: [id number] | | | | | | [place], [place] | | | | | | [address] | | | | | | [phone] | | | +--------+ + + + [...]
--- OUTSIDE RECORDS SUMMARY | ~2019-11-08 | XMS | Encounter Summary ---
Demographics + + + | Address | [address] | | | [place] [address] | + + + | Home Phone | | + + + | Preferred Language | Unknown | + + + | Marital Status | Single | + + + | Mosque Affiliation | CHR | + + + [...] | | | | | [place] [address] | | + + + + + Care Team Providers + +------+ + | Care Career Services Officer Name | Role | Phone | + +------+ + | Serena Barroso | PCP | | + +------+ + Reason for Referral Diagnostic Testing (Routine) +--------+--------+ + + + + | Status | Reason | Specialty | Diagnoses / | Referred By | Referred To | | | | | Procedures | Contact | Contact | +--------+--------+ + + + + | Closed | | Radiology | Diagnoses | | Rad Ct Scan | | | | | Renal | Kristie | [address] | | | | | insufficienc | MD Reinaldo | [place] | | | | | y | [address] | [address] | | | | | Procedures | [address] | Mailcode: | | | | | CT URGRAM | [place], [place] | [address] [facility] | | | | | ABD WWO | [address] [facility] | | | | | CONTRAST | | [place], [place] | | | | | | | [address] | | | | | | | Phone: | | | | | | | [phone] | | | | | | | Fax: | | | | | | | [phone] | +--------+--------+ + + + + Reason for Visit + + + | Reason | Comments | + + + | Procedure | cystogram | + + + | Bladder cancer | | + + + PROC - Dept/Practice Procedure (Routine) +--------+--------+ + + + + | Status | Reason | Specialty | Diagnoses / | Referred By | Referred To | | | | | Procedures | Contact | Contact | +--------+--------+ + + + + | Closed | | Urology | Diagnoses | Dharmesh, | Kristie, | | | | | Exstrophy | eSrena Wilson, | MD Reinaldo | | | | | of urinary | [address] | [address] | | | | | bladder | [address] | [address] | | | | | Procedures | [place], [place] | [place], [place] | | | | | [place] INJECTION | [address] | [address] | | | | | FOR BLADDER | Phone: | | | | | | X-RAY HI | [phone] | | | | | | X-RAY | Fax: | | | | | | CYSTOGRAM | [phone] | | | | | | cystogram | | | +--------+--------+ + + + + Encounter Details +--------+---------+ + + + | Date | Type | Department | Care Team | Description | +--------+---------+ + + + | 06/01/ | Office | Urology Oncology | Kristie, | Renal Insufficiency | | 2008 | Visit | [address] | MD Reinaldo | (Primary Dx) | | | | Mailcode: [facility]10U | | | | | | [place] [facility] | | | | | | and Healing, | | | | | | Building [address], | | | | | | Floor [facility] [place] | | | | | | [address] | | | | | | [phone] | | | +--------+---------+ + + + [...] + + + | Blood Pressure | 106/67 | 06/01/2009 3:47 PM | | | | | PDT | | + + + + + | Pulse | 102 | 06/01/2009 3:47 PM | | | | | PDT [...] + + + + | Weight | 59 kg (130 lb) | 06/01/2009 3:47 PM | | | | | PDT | | + + + + + | Height | - | - | | + + + + + | Body Mass Index | 22.31 | 05/21/2007 3:50 PM | | | | | PDT | | + + + + + documented in this encounter Progress Notes Reinaldo Flowers MD - 06/01/2009 5:45 PM PDT UROLOGIC ONCOLOGY CLINIC- FOLLOW-UP Identification: Sarmeen Zaragoza is a 44 year old woman [...] via a Loc subserosal tunnel ed fran-appendix). She was admitted 06/09/07 for an interventional radiology percutaneous neph rostomy with antegrade balloon dilation of her stricture and stent placement. Stent removed ast last appointment Jul 2007. She was last seen 02/01 at which time a pouchogram demonstrate d no evidence of obstruction. She also had a MAG-3 demonstrating 20% function on the right. She now returns for follow-up. On her last visit 08/03,, Ms. Zaragoza states she has been getting UTIs almost every month over the last 6 months. She was admitted to an outside facility 04/03 for a UTI/pyelonephriti s. Urine culture demonstrated MRSA. At that time she had a renal U/S which demonstrated mode rate-severe right pelvicaliectasis. She also had a Lasix renogram which demonstrated a flat flow and function curve. She continues to perform catheterization every 4hrs and continues t o have intermittent right flank pain. Creatinine is stable at 0.6. Subjective: Ms. Zaragoza continues to have pain which is 'crampy' in nature with gross hematuria and na usea. She also reports occasional fevers, the most recent was 101 F. She voids lots of sedim ent in her urine and states that she 'is ready to get this kidney out!' She has recently bee n on Levoquin for a sinus infection which has cleared her urine up. Her last Levoquin does w as today. ROS: All other ROS negative Current outpatient prescriptions Medication Sig ADVAIR DISKUS [...] 50 mg Oral Tablet 1x daily Physical Examination: BP 106/67 | Pulse 102 | Wt 58.968 kg (130 lb) GENERAL: appears well, in NAD SKIN: pink/warm/dry HEENT: nose/throat clear, anicteric. No cervical or supraclavicular adenopathy. ABD: soft, NT/ND, no hepatosplenomegaly, poorly healed scars on abdomen. Stoma pink patent and easily accepts catheter. Flank: right side tender. EXT: No edema NEURO: Non-focal. Cystogram today shows NO REFLUX to the upper tracts. No filling defects to suggest stone. Right renal U/S shows stable mild to moderate hydronephrosis- NO CHANGE from any prior scan s. 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 Plan: There is no evidence of reflux into the right collecting system on the pouchogram today. Coleman villalta has stable hydronephrosis. She insists that she has "back up" of urine into her right kidn ey which causes significant pain. She described pain during the procedure as we were filling the pouch and there was no demonstrable reflux whatsoever. In addition she has a completely stable right renal U/S. I wonder is she has referred pain to the right kidney or whether coleman villalta has a chronically infected kidney. She was in tears during our conversation but understand s my reluctance to proceed with a nephrectomy given the complexities of her medical and surg ical history and the potential risks involved. Nevertheless I think it is worth considering. In the meantime I think she should remain on prophylactic antibiotics. Return in about 4 weeks (around 06/29/2009) for CMP, CT Urogram. to further evaluate the righ t kidney and to rule out infection/stones. Lacy Flowers M.D. silver steward Section of Urologic Oncology Division of Urology & Renal Trans[facility] [place] lana Thorne - 06/01/2009 5:31 PM PDT reanne Loving RN - 06/01/2009 5:06 PM PDTNursing Note: After proper identification of the patient, confirmation of the procedure to be done, and v erbal permission to proceed from Dr. Flowers, the catheter was placed for the cystogram. The patient's stoma was prepped with hibiclens. A sterile 16 Fr silicone cash catheter wa s then placed for the cystogram. The balloon was inflated with 9 ml of sterile water. At t he conclusion of the procedure, the patient's bladder was drained, and the catheter was favio nick. henRukhsana garcia - 06/01/2009 3:41 PM PDTUA done per verbal order of Dr. Flowers for renal insufficiency. Read back do ne. documented in this encoun ter Plan of Treatment Not on filedocumented as of this encounter Procedures + +--------+ + + + | Procedure Name | Priori | Date/Time | Associated Diagnosis | Comments | | | ty | | | | + +--------+ + + + | HI CYSTOGRAPHY, | Routin | 06/01/2009 | Renal | Results for this | | GLOBAL | e | | Insufficiency | procedure are in the | | | | | | results section. | + +--------+ + + + | HI | Routin | 06/01/2009 | Renal | Results for this | | ULTRASOUND,RETROPERI | e | | Insufficiency | procedure are in the | | ,LTD,GLOBAL | | | | results section. | + +--------+ + + + | UA 10 DIP POC | Routin | 06/01/2009 | Renal | Results for this | | | e | | Insufficiency | procedure are in the | | | | | | results section. | + +--------+ + + + | HI INJECTION FOR | Routin | 06/01/2009 | Renal | Results for this | | BLADDER X-RAY | e | | Insufficiency | procedure are in the | | | | | | results section. | + +--------+ + + + documented in this encounter Results CT URGRAM ABD WWO CONTRAST (06/29/2009 2:56 PM PDT) + + + + + + | Component | Value | Ref Range | Performed | Pathologist | | | | | At | Signature | + + + + + + | CT URGRAM | Unenhanced abdominal | | | | | ABD WWO | pelvic CT followed by CT | | | | | CONTRAST | abdomen and pelvis | | | | | | inthe | | | | | | nephrographic/excretory | | | | | | phase following split | | | | | | dose administrationof | | | | | | 100 cc IV Omnipaque. | | | | | | Patient was also | | | | | | subsequently imaged in | | | | | | theprone position.3-D | | | | | | reconstructions of the | | | | | | collecting systems and | | | | | | ureters weregenerated on | | | | | | an independent | | | | | | workstation.Comparison: | | | | | | Outside CT | | | | | | 12/30/2005FINDINGS:ABDOMEN | | | | | | : Visualized lung bases | | | | | | are clear. Liver is | | | | | | normal inappearance | | | | | | without focal lesion. | | | | | | Gallstones are present | | | | | | withoutcomplication. | | | | | | There is no biliary | | | | | | duct dilation. | | | | | | Pancreas, spleen,and | | | | | | adrenal glands are | | | | | | within normal | | | | | | limits.Focal left | | | | | | anterior interpolar | | | | | | renal scarring with | | | | | | subjacent | | | | | | tractioncaliectasis is | | | | | | noted. Left kidney is | | | | | | otherwise normal in | | | | | | appearancewithout focal | | | | | | lesion. A single | | | | | | punctate nonobstructing | | | | | | medial leftupper pole | | | | | | calculus is identified | | | | | | image 29.Right kidney is | | | | | | globally atrophic with | | | | | | multifocal scarring | | | | | | andcortical thinning and | | | | | | global pelvicaliectasis | | | | | | and | | | | | | segmentalureterectasis | | | | | | extending to the right | | | | | | lower quadrant continent | | | | | | urinarydiversion/pouch. | | | | | | There are no | | | | | | right-sided urinary | | | | | | tract calculi. Astable | | | | | | right lower pole | | | | | | exophytic cyst measures | | | | | | 1.1 cm. There isanatomic | | | | | | narrowing at the right | | | | | | ureteral neocystostomy | | | | | | anastomosis,of uncertain | | | | | | functional | | | | | | significance, though the | | | | | | degree ofright-sided | | | | | | ureterectasis and | | | | | | pelvocaliectasis in the | | | | | | excretory phaseappears | | | | | | worse when compared to | | | | | | the prior outside study. | | | | | | Lasixwashout nuclear | | | | | | medicine study or an | | | | | | antegrade pyelogram may | | | | | | bebetter able to access | | | | | | the functional | | | | | | significance. | | | | | | Nephrograms | | | | | | aresymmetric. There is | | | | | | symmetric early | | | | | | excretion into the | | | | | | collectingsystems.. 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 Ileocolic | | | | | | anastomosis noted in | | | | | | the rightabdomen. | | | | | | There is no bowel | | | | | | obstruction. No | | | | | | ascites or adenopathy | | | | | | ispresent. There is no | | | | | | destructive bone | | | | | | lesion.IMPRESSION:One. | | | | | | Anatomic narrowing at | | | | | | the right ureteral | | | | | | neocystostomyanastomosis | | | | | | of uncertain clinical | | | | | | significance as | | | | | | discussed above.No | | | | | | obstructing right-sided | | | | | | urinary tract calculi. | | | | | | Punctatenonobstructing | | | | | | left upper pole | | | | | | calculus.I have | | | | | | personally viewed this | | | | | | procedure/exam and | | | | | | reviewed this | | | | | | report.Author: JAKE | | | | | | Dina AVILAReviewer: | | | | | | JAKE AVILA M.D.STATUS | | | | | | FINAL / Dr. JAKE AVILA | | | | + + + + + + + + | Specimen | + + | | + + + +---------+ + + | Performing | Address | City/State/Zipcode | Phone Number | | Organization | | | | + +---------+ + + | [facility] DEPARTMENT OF | | | | | RADIOLOGY | | | | + +---------+ + + [facility] - COMPLETE METABOLIC SET (06/29/2009 12:57 PM [...] | + + + + + | [facility] DEPARTMENT OF | [address] [facility] | [place] [address] | | | PATHOLOGY | [address] | | | + + + + + | [facility] | [address] [facility] [facility] | [place] [address] | | | PATHOLOGY | [address] [...] | + + + + + | [facility] | [address] [facility] | [place] [address] | | | PATHOLOGY | [address] | | | + + + + + | [facility] | [address] [facility] [facility] | [place] [address] | | | PATHOLOGY | [address] | | | + + + + + HI INJECTION FOR BLADDER X-RAY (06/01/2009) + + + | Narrative | Performed At | + + + | See procedure note- images saved and documented in progress note. | | + + + UA DIPSTICK ONLY, POC (06/01/2009) + +--------+ + + + | Component | Value | Ref Range | Performed | Pathologist | | | | | At | Signature | + +--------+ + + + | COLOR (UA | Yellow | | [facility] | | | DIP), POC | | | OF CARE | | | | | | TESTS | | + +--------+ + + + | APPEARANCE | Turbid | | [facility] | | | (UA DIP), | | | OF CARE | | | POC | | | TESTS | | + +--------+ + + + | LEUKOCYTES | Small | Negative | [facility] | | | (UA DIP), | | | OF CARE | | | POC | | | TESTS | | + +--------+ + + + | NITRITES | Neg | Negative | [facility] | | | (UA DIP), | | | OF CARE | | | POC | | | TESTS | | + +--------+ + + + | UROBILINOGE | Norm | 0.2 ARIS | [facility] | | | N (UA DIP), | | UNITS | OF CARE | | | POC | | | TESTS | | + +--------+ + + + | PROTEIN (UA | Neg | Negative to | [facility] | | | DIP), POC | | Trace mg/dL | OF CARE | | | | | | TESTS | | + +--------+ + + + | PH (UA | 7.0 | 5 - 8 | [facility] | | | DIP), POC | | | OF CARE | | | | | | TESTS | | + +--------+ + + + | BLOOD (UA | Mod | Negative | [facility] | | | DIP), POC | | | OF CARE | | | | | | TESTS | | + +--------+ + + + | SPECIFIC | 1.005 | 1.005 - 1.03 | [facility] | | | GRAVITY (UA | | | OF CARE | | | DIP), POC | | | TESTS | | + +--------+ + + + | KETONES (UA | Neg | Negative mg/dL | [facility] | | | DIP), POC | | | OF CARE | | | | | | TESTS | | + +--------+ + + + | BILIRUBIN | Neg | Negative | [facility] | | | (UA DIP), | | | OF CARE | | | POC | | | TESTS | | + +--------+ + + + | GLUCOSE (UA | Neg | Negative to | [facility] | | | DIP), POC | | Trace mg/dL | OF CARE | | | | | | TESTS | | + +--------+ + + + + + | Specimen | + + | Urine | + + + + + + + | Performing | Address | City/State/Zipcode | Phone Number | | Organization | | | | + + + + + | [facility] | [address] | [place], [place] | | | HECTOR, POINT OF CARE | [address] | [address] | | | TESTS | | | | + + + + + | [facility] | [address] | [place], [place] | | | TESTS | [address] | [address] | | + + + + + HI ULTRASOUND,BRADILTD,GLOBAL (06/01/2009) + + + | Narrative | Performed At | + + + | Bilateral Renal U/S was done to assess the right kidneys and to | | | rule out hydronephrosis. Right kidney measured 9.6cm X 5.3cm. The U/S | | | showed mild to moderate right hydronephrosis that is unchanged from | | | her prior scans and U/S. | | + + + HI CYSTOGRAPHY, GLOBAL (06/01/2009) + + + | Narrative | Performed At | + + + | After proper identification of the patient, confirmation of the | | | procedure to be done, and verbal permission to proceed the catheter | | | was placed for the cystogram. The patient's stoma was prepped with | | | hibiclens. A sterile 16 Fr silicone cash catheter was then placed | | | for the cystogram. The balloon was inflated with 9 ml of sterile | | | water. The pouch was filled to about 600cc with no reflux noted to | | | either kidney. Multiple fluoroscopic images were taken. There were no | | | filling defects. At the conclusion of the procedure, the patient's | | | bladder was drained, and the catheter was removed. | | + + + documented in this encounter Visit Diagnoses + + | Diagnosis | + + | Renal insufficiency - Primary Unspecified disorder of kidney and ureter | + + documented in this encounter
--- OUTSIDE RECORDS SUMMARY | ~2019-11-08 | XMS | Encounter Summary ---
Demographics + + + | Address | [address] | | | [place] [address] | + + + | Home Phone | | + + + | Preferred Language | Unknown | + + + | Marital Status | | + + + | Amish Affiliation | Unknown | + + + | Race | Unknown | + + + | Ethnic Group | Unknown | + + + Author + + + | Author | [facility] | | | and [place] | + + + | Organization | [facility] | | | and [place] | + + + | Address | Unknown | + + + | Phone | Unavailable | + + + Support + + + + + | Name | Relationship | Address | Phone | + + + + + | Darius Fields | ECON | [address] | | | | | , [address] | | + + + + + Care Team Providers + +------+ + | Care Traveling Electrician Name | Role | Phone | + +------+ + PCP | Unavailable | + +------+ + Encounter Details +--------+ + + + + | Date | Type | Department | Care Team | Description | +--------+ + + + + | 04/12/ | [facility] | [facility] | Evan Bolton | | | 2007 | Encounter | MED CTR EMERGENCY | MD [address] | | | | | [place] [address] | [address] | | | | | [place], [place] | [place] [address] | | | | | [address] | [phone] | | | | | [phone] | | | +--------+ + + + [...] | 12/02/ | Office | Gastroenterology | [facility], | | | 2019 | Visit | | CRISTHIAN Carbone [address] | | | | | | [address] | | | | | | [place] | | | | | | [address] | | | | | | | | +--------+---------+ + + + documented as of this encounter Visit Diagnoses Not on filedocumented in this encounter"
--- OUTSIDE RECORDS SUMMARY | ~2019-11-08 | XMS | Encounter Summary ---
Demographics + + + | Address | [address] | | | [place] [address] | + + + | Home Phone | | + + + | Preferred Language | Unknown | + + + | Marital Status | Single | + + + | Faith Affiliation | CHR | + + + | Race | White | + + + | Ethnic Group | Not or | + + + Author + + + | Author | [facility] | + + + | Organization | [facility] | + + + | Address | Unknown | + + + | Phone | Unavailable | + + + Support + + + + + | Name | Relationship | Address | Phone | + + + + + | Darius Fields | HELEN | [address] | | | | | [place] [address] | | + + + + + Care Team Providers + +------+ + | Care Mixing Picker Tender Name | Role | Phone | [...] [id number] | | | | | | [facility] | | | | | | and Healing, | | | | | | Building [address], | | | | | | Floor [place], [place] | | | | | | [address] | | | | | | [phone] | | | +--------+ + + + [...]
--- OUTSIDE RECORDS SUMMARY | ~2019-11-08 | XMS | Encounter Summary ---
Demographics + + + | Address | [address] | | | [place] [address] | + + + | Home Phone | | + + + | Preferred Language | Unknown | + + + | Marital Status | | + + + | Spiritism Affiliation | Unknown | + + + | Race | Unknown | + + + | Ethnic Group | Unknown | + + + Author + + + | Author | [facility] | | | and [place] | + + + | Organization | [facility] | | | and [place] | + + + | Address | Unknown | + + + | Phone | Unavailable | + + + Support + + + + + | Name | Relationship | Address | Phone | + + + + + | Darius Diamond | HELEN | [address] | | | | | , [address] | | + + + + + Care Team Providers + +------+ + | Care Reverser Name | Role | Phone | + +------+ + | Francine Sanford NP | PCP | | + +------+ + Reason for Visit +--------+ + | Reason | Comments | +--------+ + | Pain | | +--------+ + Encounter Details +--------+ + + + + | Date | Type | Department | Care Team | Description | +--------+ + + + + | 04/20/ | Telephone | [facility] | Toi Gonzalez | Pain | | 2018 | | [address] | MD Leigh[address] | | | | | [place], [place] | [place], [place] | | | | | [address] | [address] | | | | | [phone] | | | +--------+ + + + [...] | 12/02/ | Office | Gastroenterology | [facility], | | | 2020 | Visit | | CRI[address]HIAN Carbone [address] | | | | | | [address] | | | | | | [place] | | | | | | [id number] | | | | | | | | +--------+---------+ + + + documented as of this encounter Visit Diagnoses Not on filedocumented in this encounter"
--- OUTSIDE RECORDS SUMMARY | ~2019-11-08 | XMS | Encounter Summary ---
Demographics + + + | Address | [address] | | | [place] [address] | + + + | Home Phone | | + + + | Preferred Language | Unknown | + + + | Marital Status | | + + + | Amish Affiliation | Unknown | + + + | Race | Unknown | + + + | Ethnic Group | Unknown | + + + Author + + + | Author | [facility] | | | and [place] | + + + | Organization | [facility] | | | and [place] | + + + | Address | Unknown | + + + | Phone | Unavailable | + + + Support + + + + + | Name | Relationship | Address | Phone | + + + + + | Darius Diamond CERV[place]ES | [address] | | | | | , [address] | | + + + + + Care Team Providers + +------+ + | Care Product Safety Lead Name | Role | Phone | + +------+ + | Francine Sanford NP | PCP | | + +------+ + Encounter Details +--------+ + + + + | Date | Type | Department | Care Team | Description | +--------+ + + + + | 04/02/ | Imaging | [facility] | Provider, | | | 2018 | Exam | MED CTR EXTERNAL | [address] | | | | | IMAGING | [address] | | | | | [phone] | [place] [address] | | +--------+ + + + + [...] | 12/02/ | Office | Gastroenterology | [facility], | | | 2020 | Visit | | CRISTHIAN Carbone [address] | | | | | | [address] | | | | | | [place] | | | | | | [address] | | | | | | | | +--------+---------+ + + + documented as of this encounter Procedures + +--------+ + + + | Procedure Name | Priori | Date/Time | Associated Diagnosis | Comments | | | ty | | | | + +--------+ + + + | XR ABDOMEN AP | Routin | 11/14/2017 | | Results for this | | | e | 12:30 PM | | procedure are in the | | | | PST | | results section. | + +--------+ + + + documented in this encounter Results XR Abdomen AP (11/14/2017 12:30 PM PST) + + | Specimen | + + | | + + + + + | Narrative | Performed At | + + + | External films for comparison only - no result from [place]. | [facility] | + + + + +---------+ + + | Performing | Address | City/State/Zipcode | Phone Number | | Organization | | | | + +---------+ + + | [facility] | | | | + +---------+ + + documented in this encounter Visit Diagnoses Not on filedocumented in this encounter"
--- OUTSIDE RECORDS SUMMARY | ~2019-11-08 | XMS | Encounter Summary ---
Demographics + + + | Address | [address] | | | [place] [address] | + + + | Home Phone | | + + + | Preferred Language | Unknown | + + + | Marital Status | Single | + + + | Roman Catholic Affiliation | CHR | + + + | Race | White | + + + | Ethnic Group | Not or | + + + Author + + + | Author | [facility] | + + + | Organization | [facility] | + + + | Address | Unknown | + + + | Phone | Unavailable | + + + Support + + + + + | Name | Relationship | Address | Phone | + + + + + | Darius Fields | HELEN | [address] | | | | | [place] [address] | | + + + + + Care Team Providers + +------+ + | Care Bonbon Dipper Name | Role | Phone | + +------+ + | Serena Barroso | PCP | | + +------+ + Encounter Details +--------+ + + + + | Date | Type | Department | Care Team | Description | +--------+ + + + + | 11/28/ | Telephone | Urology Adult | [place], | | | 2008 | | [address] | MD Reinaldo | | | | | Mailcode: [facility] | | | | | | [facility] | | | | | | and Healing, | | | | | | | | | | | | Floor [place], [place] | | | | | | [address] | | | | | | [phone] | | | +--------+ + + + [...]
--- OUTSIDE RECORDS SUMMARY | ~2019-11-08 | XMS | Encounter Summary ---
Demographics + + + | Address | [address] | | | [place] [address] | + + + | Home Phone [...] | | | | | [place] [address] | | + + + + + Care Team Providers + +------+ + | Care Thermoforming Machine Operator Name | Role | Phone | + +------+ + | Serena Barroso | PCP | | + +------+ + Reason for Visit + + + | Reason | Comments | + + + | Diarrhea | | + + + | Abnormal decrease in | | | weight | | + + + Encounter Details +--------+ + + + + | Date | Type | Department | Care Team | Description | +--------+ + + + + | 04/12/ | Telephone | Urology Oncology | Hirenmand, | Diarrhea; Abnormal | | 2008 | | [address] | MD Reinaldo | decrease in weight | | | | Mailcode: CH10U | | | | | | [facility] | | | | | | and Healing, | | | | | | Building | | | | | | Floor [place], [place] | | | | | | [address] | | | | | | [phone] | | | +--------+ + + + [...]
--- OUTSIDE RECORDS SUMMARY | ~2019-11-08 | XMS | Encounter Summary ---
Demographics + + + | Address | [address] | | | [place] [address] | + + + | Home Phone | | + + + | Preferred Language | Unknown | + + + | Marital Status | Single | + + + | Judaism Affiliation | CHR | + + + | Race | White | + + + | Ethnic Group | Not or | + + + Author + + + | Author | [facility] | + + + | Organization | [facility] | + + + | Address | Unknown | + + + | Phone | Unavailable | + + + Support + + + + + | Name | Relationship | Address | Phone | + + + + + | Darius Fields | HELEN | [address] | | | | | [place] [address] | | + + + + + Care Team Providers + +------+ + | Care Head Waiter/Waitress Name | Role | Phone | + +------+ + | Serena Barroso | PCP | | + +------+ + Reason for Visit +--------+ + | Reason | Comments | +--------+ + | Other | Received Records | +--------+ + Encounter Details +--------+ + + + + | Date | Type | Department | Care Team | Description | +--------+ + + + + | 12/15/ | Documentati | Urology Oncology | Kristie, | Other (Received | | 2008 | on | [address] | MD Reinaldo | Records) | | | | Mailcode: CH10U | | | | | | [facility] | | | | | | and Healing, | | | | | | Building | | | | | | Floor [place], [place] | | | | | | [address] | | | | | | [phone] | | | +--------+ + + + [...]
--- OUTSIDE RECORDS SUMMARY | ~2019-11-08 | XMS | Encounter Summary ---
Demographics + + + | Address | [address] | | | [place] [address] | + + + | Home Phone | | + + + | Preferred Language | Unknown | + + + | Marital Status | Single | + + + | Samaritan Affiliation | CHR | + + + | Race | White | + + + | Ethnic Group | Not or | + + + Author + + + | Author | [facility] | + + + | Organization | [facility] | + + + | Address | Unknown | + + + | Phone | Unavailable | + + + Support + + + + + | Name | Relationship | Address | Phone | + + + + + | Darius Fields | HELEN | [address] | | | | | [place] [address] | | + + + + + Care Team Providers + +------+ + | Care White Work Cleaner Name | Role | Phone | + [...] on | [address] | [address] | | | | | Mailcode: CH10U | [facility] | | | | | [facility] | [place] [address] | | | | | and Healing, | [phone] | | | | | Building | | | | | | [place], [place] | | | | | | [address] | | | | | | [phone] | | | +--------+ + + + [...]
--- OUTSIDE RECORDS SUMMARY | ~2019-11-08 | XMS | Encounter Summary ---
Demographics + + + | Address | [address] | | | [place] [address] | + + + | Home Phone | | + + + | Preferred Language | Unknown | + + + | Marital Status | Single | + + + | Church Affiliation | CHR | + + + [...] | | | | | [place] [address] | | + + + + + Care Team Providers + +------+ + | Care Diesel Stationary Engineer Name | Role | Phone | + +------+ + PCP | Unavailable | + +------+ + Encounter Details +--------+ + + + + | Date | Type | Department | Care Team | Description | +--------+ + + + + | 04/24/ | Results | Urology Residents | Kristie, | | | 2004 | Only | [address] | MD Reinaldo | | | | | Loop Mailcode: L588 | | | | | | Physician's | | | | | | [address]arly[address] | | | | | | [place], [place] | | | | | | [address] | | | | | | [phone] | | | +--------+ + + + [...] | | + +---------+--------+ + + | CT OUTSIDE FILMS | Imaging | Routin | | 04/24/2005 12:00 AM | | | | e | | PDT | + +---------+--------+ + + | CT OUTSIDE FILMS | Imaging | Routin | | 05/21/2005 12:00 AM | | | | e | | PDT | + +---------+--------+ + + | CT OUTSIDE FILMS | Imaging | Routin | | 05/27/2005 12:00 AM | | | | e | | PDT | + +---------+--------+ + + | GENERAL OUTSIDE | Imaging | Routin | | 04/24/2005 12:00 AM | | FILMS | | e | | PDT | + +---------+--------+ + + documented as of this encounter Visit Diagnoses Not on filedocumented in this encounter"
--- OUTSIDE RECORDS SUMMARY | ~2019-11-08 | XMS | Encounter Summary ---
Demographics + + + | Address | [address] | | | [place] [address] | + + + | Home Phone | | + + + | Preferred Language | Unknown | + + + | Marital Status | Single | + + + | Lutheran Affiliation | CHR | + + + | Race | White | + + + | Ethnic Group | Not or | + + + Author + + + | Author | [facility] | + + + | Organization | [facility] | + + + | Address | Unknown | + + + | Phone | Unavailable | + + + Support + + + + + | Name | Relationship | Address | Phone | + + + + + | Darius Fields | HELEN | [address] | | | | | [place] [address] | | + + + + + Care Team Providers + +------+ + | Care Application Spec Name | Role | Phone | + +------+ + | Serena Barroso | PCP | | + +------+ + Reason for Visit + + + | Reason | Comments | + + + | Appointment | questions | + + + Encounter Details +--------+ + + + + | Date | Type | Department | Care Team | Description | +--------+ + + + + | 03/24/ | Telephone | Urology Oncology | Kristie, | Appointment | | 2008 | | [address] | MD Reinaldo | (questions) | | | | Mailcode: CH10U | | | | | | [facility] | | | | | | and [place], | | | | | | Building | | | | | | [place], [place] | | | | | | [address] | | | | | | [phone] | | | +--------+ + + + [...]
--- OUTSIDE RECORDS SUMMARY | ~2019-11-08 | XMS | Encounter Summary ---
Demographics + + + | Address | [address] | | | [place] [address] | + + + | Home Phone | | + + + | Preferred Language | Unknown | + + + | Marital Status | Single | + + + | Protestant Affiliation | CHR | + + + | Race | White | + + + | Ethnic Group | Not or | + + + Author + + + | Author | [facility] | + + + | Organization | [facility] | + + + | Address | Unknown | + + + | Phone | Unavailable | + + + Support + + + + + | Name | Relationship | Address | Phone | + + + + + | Darius Fields | HELEN | [address] | | | | | [place] [address] | | + + + + + Care Team Providers + +------+ + | Care District Branch Manager Name | Role | Phone | + +------+ + | Serena Barroso | PCP | | + +------+ + Encounter Details +--------+ + + + + | Date | Type | Department | Care Team | Description | +--------+ + + + + | 11/29/ | Gear Room Keeper | Urology Oncology | Kristie, | | | 2009 | | [address] | MD Reinaldo | | | | | Mailcode: CH10U | | | | | | [facility] | | | | | | and Healing, | | | | | | Building | | | | | | Floor [place], [place] | | | | | | [address] | | | | | | [phone] | | | +--------+ + + + [...]
--- OUTSIDE RECORDS SUMMARY | ~2019-11-08 | XMS | Encounter Summary ---
Demographics + + + | Address | [address] | | | [place] [address] | + + + | Home Phone | | + + + | Preferred Language | Unknown | + + + | Marital Status | | + + + | Zoroastrian Affiliation | Unknown | + + + | Race | Unknown | + + + | Ethnic Group | Unknown | + + + Author + + + | Author | [facility] | | | and [place] | + + + | Organization | [facility] | | | and [place] | + + + | Address | Unknown | + + + | Phone | Unavailable | + + + Support + + + + + | Name | Relationship | Address | Phone | + + + + + | Darius Fields | ECON | [address] | | | | | , [address] | | + + + + + Care Team Providers + +------+ + | Care Nibbler Operator Name | Role | Phone | + +------+ + PCP | Unavailable | + +------+ + Encounter Details +--------+ + + + + | Date | Type | Department | Care Team | Description | +--------+ + + + + | 12/17/ | [facility] | [facility] | Evan Bolton | | | 2007 | Encounter | MED CTR EMERGENCY | MD [address] | | | | | [place] [address] | [address] [place] | | | | | [place], [place] | [place] [address] | | | | | [address] | [phone] | | | | | [phone] | | | +--------+ + + + [...] | 12/02/ | Office | Gastroenterology | [facility], | | | 2019 | Visit | | CRISTHIAN Carbone [address] | | | | | | [address] | | | | | | [place] | | | | | | [address] | | | | | | | | +--------+---------+ + + + documented as of this encounter Visit Diagnoses Not on filedocumented in this encounter"
--- OUTSIDE RECORDS SUMMARY | ~2019-11-08 | XMS | Encounter Summary ---
Demographics + + + | Address | [address] | | | [place] [address] | + + + | Home Phone | | + + + | Preferred Language | Unknown | + + + | Marital Status | Single | + + + | Buddhist Affiliation | CHR | + + + | Race | White | + + + | Ethnic Group | Not or | + + + Author + + + | Author | [facility] | + + + | Organization | [facility] | + + + | Address | Unknown | + + + | Phone | Unavailable | + + + Support + + + + + | Name | Relationship | Address | Phone | + + + + + | Darius Fields | HELEN | [address] | | | | | [place] [address] | | + + + + + Care Team Providers + +------+ + | Care Student Life Vice President Name | Role | Phone | + +------+ + | Serena Barroso | PCP | | + +------+ + Encounter Details +--------+ + + + + | Date | Type | Department | Care Team | Description | +--------+ + + + + | 07/29/ | Telephone | Urology Adult | [place], | | | 2007 | | [address] | MD Reinaldo | | | | | Mailcode: CH10U | | | | | | [facility] | | | | | | and Healing, | | | | | | | | | | | | Floor [place], [place] | | | | | | [address] | | | | | | [phone] | | | +--------+ + + + [...]
--- OUTSIDE RECORDS SUMMARY | ~2019-11-08 | XMS | Encounter Summary ---
Demographics + + + | Address | [address] | | | [place] [address] | + + + | Home Phone | | + + + | Preferred Language | Unknown | + + + | Marital Status | Single | + + + | Religion Affiliation | CHR | + + + | Race | White | + + + | Ethnic Group | Not or | + + + Author + + + | Author | [facility] | + + + | Organization | [facility] | + + + | Address | Unknown | + + + | Phone | Unavailable | + + + Support + + + + + | Name | Relationship | Address | Phone | + + + + + | Darius Fields | HELEN | [address] | | | | | [place] [address] | | + + + + + Care Team Providers + +------+ + | Care Paramedical Aide Name | Role | Phone | + +------+ + | Serena Barroso | PCP | | + +------+ + Reason for Visit + + + | Reason | Comments | + + + | Weight loss | | + + + Encounter Details +--------+ + + + + | Date | Type | Department | Care Team | Description | +--------+ + + + + | 04/18/ | Telephone | Urology Oncology | Zay Au MD | Weight loss | | 2008 | | [address] | [address] [facility] | | | | | Mailcode: CH10U | [facility] [facility] | | | | | [facility] | [place] [address] | | | | | and [place], | [phone] | | | | | [facility] | | | | | | [place], [place] | | | | | | [address] | | | | | | [phone] | | | +--------+ + + + [...]
--- OUTSIDE RECORDS SUMMARY | ~2019-11-08 | XMS | Encounter Summary ---
Demographics + + + | Address | [address] | | | [place] [address] | + + + | Home Phone | | + + + | Preferred Language | Unknown | + + + | Marital Status | | + + + | Protestant Affiliation | Unknown | + + + | Race | Unknown | + + + | Ethnic Group | Unknown | + + + Author + + + | Author | [facility] | | | and [place] | + + + | Organization | [facility] | | | and [place] | + + + | Address | Unknown | + + + | Phone | Unavailable | + + + Support + + + + + | Name | Relationship | Address | Phone | + + + + + | Darius Diamond CERVANTES | [address] | | | | | , [address] | | + + + + + Care Team Providers + +------+ + | Care Returned Item Clerk Name | Role | Phone | + +------+ + | Francine Sanford NP | PCP | | + +------+ + Encounter Details +--------+ + + + + | Date | Type | Department | Care Team | Description | +--------+ + + + + | 04/14/ | Orders Only | [facility] | Toi Gonzalez | | | 2018 | | [address] | MD Leighann [address] | | | | | [place], [place] | [place], [place] | | | | | [address] | [address] | | | | | [phone] | | | +--------+ + + + [...] | 12/02/ | Office | Gastroenterology | [facility], | | | 2020 | Visit | | CRISTHIAN Carbone [address] | | | | | | [address] | | | | | | [place] | | | | | | [address] | | | | | | | | +--------+---------+ + + + documented as of this encounter Visit Diagnoses Not on filedocumented in this encounter"
--- OUTSIDE RECORDS SUMMARY | ~2019-11-08 | XMS | Encounter Summary ---
Demographics + + + | Address | [address] | | | [place] [address] | + + + | Home Phone | | + + + | Preferred Language | Unknown | + + + | Marital Status | | + + + | Methodist Affiliation | Unknown | + + + | Race | Unknown | + + + | Ethnic Group | Unknown | + + + Author + + + | Author | [facility] | | | and [place] | + + + | Organization | [facility] | | | and [...] #3 | | | | | , [address] | | + + + + + Care Team Providers + +------+ + | Care Tube Lancer Name | Role | Phone | + +------+ + PCP | Unavailable | + +------+ + Encounter Details +--------+ + + + + | Date | Type | Department | Care Team | Description | +--------+ + + + + | 04/20/ | [facility] | [facility] | Martine Mcdermott | | | 2008 | Encounter | MED CTR EMERGENCY | MD Pat [address] | | | | | CENTER [address] | [facility], | | | | | [place], [place] | [place] [address] | | | | | [address] | [phone] | | | | | [phone] | | | +--------+ + + + [...] | 12/02/ | Office | Gastroenterology | [facility], | | | 2019 | Visit | | CRISTHIAN Carbone [address] | | | | | | [address] | | | | | | [place] | | | | | | [address] | | | | | | | | +--------+---------+ + + + documented as of this encounter Visit Diagnoses Not on filedocumented in this encounter"
--- OUTSIDE RECORDS SUMMARY | ~2019-11-08 | XMS | Encounter Summary ---
Demographics + + + | Address | [address] | | | [place] [address] | + + + | Home Phone | | + + + | Preferred Language | Unknown | + + + | Marital Status | | + + + | Advent Affiliation | Unknown | + + + | Race | Unknown | + + + | Ethnic Group | Unknown | + + + Author + + + | Author | [facility] | | | and [place] | + + + | Organization | [facility] | | | and [place] | + + + | Address | Unknown | + + + | Phone | Unavailable | + + + Support + + + + + | Name | Relationship | Address | Phone | + + + + + | Darius Fields | ECON | [address] | | | | | , [address] | | + + + + + Care Team Providers + +------+ + | Care Aeronautical Engineering Professor Name | Role | Phone | [...] | | | | | | | [place] [facility] | | | | | | [...] + + | 04/09/ | Anesthesia | [facility] | Court, | | | 2018 | Event | MED CTR OR INTRA OP | Minh Can MD | | | | | [address] | [address] | | | | | [place] | [place] | | | | | [address] | [address] | | | | | [phone] | | | | | | | Lebron Salazar MD | | | | | | [address] | | | | | | [place] | | | | | | [address] | | | | | | | [...] +----+---+ + + | | 0 | [place] | | | | 9 | 43-degrees [...] +----+---+ + + | | 1 | [place] off | | | | 3 | [...] 04/10/18 0900 by | | eral | whqi-niq-atvikp catheter system; | Svetlana Coleman, | E[place] [...] 0900 by | | eral | Wrist; clyo-hvu-fstmkv catheter | Mercy Palacios RN | Ely [...] | 12/02/ | Office | Gastroenterology | [facility], | | | 2020 | Visit | | CRISTHIAN Carbone [address] | | | | | | [address] | | | | | | [place] | | | | | | [address] | | | | | | | [...] documentation and see anesthesia r ecord or [facility] for all medication documentation. | | | [...] | | | | | | Starting [facility] 04/09/18 at 0411, For | | | [...] 9:37 | | | | | Starting [facility] 04/09/18 at 0937, | | AM PDT | | | | | Anesthesia Intra-op | | | | | | + +-------+ +-------+---+---+ +---+---+ | | | +---+---+ + +-------+ +-------+---+---+ | diphenhydrAMINE (BENADRYL) | Given | 04/09/20 | 25 mg | | | | injection Intravenous, PRN, | | 18 10:05 | | | | | Itching, Starting [facility] 04/09/18 at | | AM PDT | | | | | 1005, Anesthesia Intra-op | | | | | | + +-------+ +-------+---+---+ +---+---+ | | | +---+---+ + +-------+ +-------+---+---+ | esmolol (BREVIBLOC) 10 mg/mL | Given | 04/09/20 | 30 mg | | | | injection Intravenous, PRN, | | 18 9:43 | | | | | Starting [facility] 04/09/18 at 0943, | | AM PDT [...] | | | | PRN, Pain, Starting [facility] 04/09/18 | | PM PDT | | [...]
--- OUTSIDE RECORDS SUMMARY | ~2019-11-08 | XMS | Encounter Summary ---
Demographics + + + | Address | [address] | | | [place] [address] | + + + | Home Phone | | + + + | Preferred Language | Unknown | + + + | Marital Status | | + + + | Nondenominational Affiliation | Unknown | + + + | Race | Unknown | + + + | Ethnic Group | Unknown | + + + Author + + + | Author | [facility] | | | and [place] | + + + | Organization | [facility] | | | and [...] #3 | | | | | , [address] | | + + + + + Care Team Providers + +------+ + | Care Packer Dried Beef Name | Role | Phone | + +------+ + PCP | Unavailable | + +------+ + Encounter Details +--------+ + + + + | Date | Type | Department | Care Team | Description | +--------+ + + + + | 05/06/ | Hospital | [facility] | | | | 2005 - | Encounter | MED CTR EMERGENCY | | | | | | [address] [place] | | | | 05/07/ | | [place] | | | | 2005 | | [address] | | | | | | [phone] | | | +--------+ + + + [...] | 12/02/ | Office | Gastroenterology | [facility], | | | 2020 | Visit | | CRISTHIAN Carbone [address] | | | | | | [address] | | | | | | [place] | | | | | | [address] | | | | | | | | +--------+---------+ + + + documented as of this encounter Visit Diagnoses Not on filedocumented in this encounter"
--- OUTSIDE RECORDS SUMMARY | ~2019-11-08 | XMS | Encounter Summary ---
Demographics + + + | Address | [address] | | | [place] [address] | + + + | Home Phone | | + + + | Preferred Language | Unknown | + + + | Marital Status | | + + + | Quaker Affiliation | Unknown | + + + | Race | Unknown | + + + | Ethnic Group | Unknown | + + + Author + + + | Author | [facility] | | | and [place] | + + + | Organization | [facility] | [...] #3 | | | | | , [address] | | + + + + + Care Team Providers + +------+ + | Care Signal Helper Name | Role | Phone | + +------+ + PCP | Unavailable | + +------+ + Encounter Details +--------+ + + + + | Date | Type | Department | Care Team | Description | +--------+ + + + + | 07/09/ | Abstract | [place] [facility] | [facility] | | | 2011 | | Conversion Location | [facility] | | | | | [phone] | | | +--------+ + + + [...] + + + | Blood Pressure | 130/90 | 04/26/2010 12:00 AM | | | | | PDT | | + + + + + | Pulse | - | - | | + [...] + + + + | Weight | 58.1 kg (128 lb) | 04/26/2010 12:00 AM | | | | | PDT | | + + + + + | Height | - | - | | + + + + + | Body Mass Index | - | - | | + + + + + documented in this encounter Plan of Treatment +--------+---------+ + + + | Date | Type | Specialty | Care Team | Description | +--------+---------+ + + + | 12/02/ | Office | Gastroenterology | [facility], | | | 2020 | Visit | | CRISTHIAN Carbone [address] | | | | | | [address] | | | | | | [place] | | | | | | [address] | | | | | | | | +--------+---------+ + + + documented as of this encounter Visit Diagnoses Not on filedocumented in this encounter"
--- OUTSIDE RECORDS SUMMARY | ~2019-11-08 | XMS | Encounter Summary ---
Demographics + + + | Address | [address] | | | [place] [address] | + + + | Home Phone [...] | | | | | [place] [address] | | + + + + + Care Team Providers + +------+ + | Care Exhaust Worker Name | Role | Phone | [...] CH10U | | | | | | [facility] | | | | | | and Healing, | | | | | | Building | | | | | | Floor [place], [place] | | | | | | [address] | | | | | | [phone] | | | +--------+ + + + [...]
--- OUTSIDE RECORDS SUMMARY | ~2019-11-08 | XMS | Encounter Summary ---
Demographics + + + | Address | [address] | | | [place] [address] | + + + | Home Phone [...] + + + | Author | [facility] | + + + | Organization | [facility] | + + + | Address | Unknown | + + + | Phone | Unavailable | + + + Support + + + + + | Name | Relationship | Address | Phone | + + + + + | Darius Fields | HELEN | [address] | | | | | [place] [address] | | + + + + + Care Team Providers + +------+ + | Care Instrument Maker And Repairer Name | Role | Phone | [...] of Urinary Tract; | | | | [facility] | | Back Pain; | | | | and Healing, | | Hydronephrosis | | | | Building | | | | | | Floor [place], [place] | | | | | | [address] | | | | | | [phone] | | | +--------+---------+ + + + [...] I have presonally edited. Lacy Flowers M.D. computer salesperson retail Section of Urologic Oncology Division of Urology & Renal Transplantation [facility] Kary Caro MD - 06/29/2009 [...] us to forward this information to her affirmative action specialist. We will see her b ack [...]
--- OUTSIDE RECORDS SUMMARY | ~2019-11-08 | XMS | Encounter Summary ---
Demographics + + + | Address | [address] | | | [place] [address] | + + + | Home Phone | | + + + | Preferred Language | Unknown | + + + | Marital Status | Single | + + + | Jain Affiliation | CHR | + + + [...] | | | | | [place] [address] | | + + + + + Care Team Providers + +------+ + | Care Honing Machine Operator Semiautomatic Name | Role | Phone | + [...] as of this encounter Progress Notes Interface, Precision Instrument Maker In - 08/15/2005 5:03 AM PDT [id number] 08/13/2005 08/13/2005 [id number] NOEMY Smith [facility] [address] [place] [address] or August 13, 2005 Rona Lyons M.D. [address] [place] [address] RE: MATI SALGUERO MR #: [id number] Dear Dr. Rea: Thank you for referring [...] She now comes to us with a 16-Swiss catheter which she says plugs easily. Upon [...] Sincerely, Reinaldo Flowers M.D. NORBERTO / PRAVIN [id number] / [id number] / [id number] / [id number] documented i n this encounter Plan of Treatment Not on filedocumented as of this encounter Visit Diagnoses Not on filedocumented in this encounter"
--- OUTSIDE RECORDS SUMMARY | ~2019-11-08 | XMS | Encounter Summary ---
Demographics + + + | Address | [address] | | | [place] [address] | + + + | Home Phone | | + + + | Preferred Language | Unknown | + + + | Marital Status | Single | + + + | Spiritism Affiliation | CHR | + + + | Race | White | + + + | Ethnic Group | Not or | + + + Author + + + | Author | [facility] | + + + | Organization | [facility] | + + + | Address | Unknown | + + + | Phone | Unavailable | + + + Support + + + + + | Name | Relationship | Address | Phone | + + + + + | Darius Fields | HELEN | [address] | | | | | [place] [address] | | + + + + + Care Team Providers + +------+ + | Care Film Processing Utility Worker Name | Role | Phone | + +------+ + | Serena Barroso | PCP | | + +------+ + Reason for Visit + + + | Reason | Comments | + + + | Flank pain | | + + + Encounter Details +--------+ + + + + | Date | Type | Department | Care Team | Description | +--------+ + + + + | 01/20/ | Telephone | Urology Oncology | Rn, U[address] | Flank pain | | 2007 | | [address] | [place] | | | | | Mailcode: CH10U | Road [place], [place] | | | | | [facility] | [address] | | | | | and [place], | | | | | | Building | | | | | | [place], [place] | | | | | | [address] | | | | | | [phone] | | | +--------+ + + + [...]
--- OUTSIDE RECORDS SUMMARY | ~2019-11-08 | XMS | Encounter Summary ---
Demographics + + + | Address | [address] | | | [place] [address] | + + + | Home Phone [...] + + | Darius Fields | [address] | | | | | [place] [address] | | + + + + + Care Team Providers + +------+ + | Care Key Person Name | Role | Phone | + +------+ + PCP | Unavailable | + +------+ + Encounter Details +--------+ + + + + | Date | Type | Department | Care Team | Description | +--------+ + + + + | 08/13/ | Office | | Note, Outpatient | Progress Note | | 2005 | Visit-Trans | | Clinic | | | | cribed | | | | +--------+ + + [...] as of this encounter Progress Notes Interface, Box Blank Machine Operator In - 09/19/2005 5:03 AM PST [id number] [facility] Date: 08/13/2005 Clinic: Urologic Oncology Clinic History: Ms. Zaragoza is a 40-year-old woman who was born with bladder exstrophy in 1964. She had an ileal conduit urinary diversion done shortly after and this was revised in 1988 to a continent Edwards pouch here at [facility] by Dr. Ley. She is referred for a possible revision of the Edwards pouch as she has recently had problems with catheterization as well as with leakage. By the time of the conversion to the continent pouch in 1988, there had already been noted a decline in the function of the right kidney. This was attributed to a kink in the ureter and for the time Ms. Zaragoza had an indwelling ureteral stent. She did have at least one episode of calcification on the stent in the past. She has also had frequent urinary tract infections which were manifested by fever and malaise. For this reason, she was for a time taking daily suppressive Bactrim. Aside from these issues, Ms. Zaragoza did remarkably well with the Edwards pouch until earlier this year when she began to have problems with catheterizing, especially when the pouch was full. A calculus was identified in the pouch and was treated in December 2003. She has since that time been treated for several urinary tract infections and has continued to have difficulty with catheterization as well as a leakage especially at night. She most recently has had to have an indwelling catheter due to her inability to access the pouch. Ms. Zaragoza would like to have the pouch revised and is specifically not interested in having the pouch converted to an incontinent ileal conduit. Ms. Zaragoza states that her bowel function is totally normal and she has no problems with diarrhea or constipation at this time. Medical and Surgical History: In addition to the above, Ms. Zaragoza has had a hysterectomy in January 2004. She also has asthma related to her heavy smoking history. She has back pain with muscle spasms and depression. Allergies: CODEINE AND CELEBREX. Medications: 1. Valium 10 mg 4 times daily for back spasms. 2. Prozac 60 mg daily. 3. Naproxen 3 times daily. 4. Estrogen 2 mg daily. 5. Suppressive antibiotic, currently being treated with Levaquin for bladder infection. 6. Advair inhaler. 7. Albuterol inhaler. Physical Examination: Vital Signs: Blood pressure 84/54, heart rate 96, and respiratory rate 16. General: Ms. Zaragoza appears well. Chest: Clear bilaterally. Cardiac: Rhythm is regular. Abdomen: Nondistended. Soft and nontender. There is a large midline scar with leahy from retention sutures. This is healed well. There is a Edwards pouch stoma in the right lower quadrant just approximately at the level of the umbilicus. The stoma is approximately flush with the skin and appears healthy. Her catheter is in place. Extremities: No edema. Imaging Studies: CT scan is reviewed. This shows a normal-appearing left kidney with a nondilated ureter down to the right lower quadrant Edwards pouch. The right kidney shows some thinning of the parenchyma along with some hydronephrosis and hydroureter. It does seem to enhance symmetrically to the left. The dilation of the ureter continues down to the level of the Edwards pouch. The pouch itself appears normal on the CT scan. There is evidence of mesh around the stoma. Impression: Edwadrs pouch, with recent development of incontinence and difficulty catheterizing even in the absence of an infection or inflammation. Plan: After discussion of the options with Ms. Zaragoza, she is most interested in having the pouch revised so that she can continue with continent catheterization. We discussed different options for revision of the pouch including conversion to an Crosby pouch or the possible use of the appendix if present as part of the continence mechanism. She will be scheduled for preadmission the day before planned pouch revision, which will be most likely in approximately 1 to 2 months. Please note that this patient was also seen and examined by Dr. Reinaldo Flowers. Arnie Stoddard M.D. Reinaldo Flowers M.D. [facility] / PRAVIN [id number] / [id number] / [id number] / [id number] cc: Rona Lyons M.D. [address] [place] [address] Electronically signed by Reinaldo Flowers 09-18-2005 08:25:12 PM documented i n this encounter Plan of Treatment Not on filedocumented as of this encounter Visit Diagnoses Not on filedocumented in this encounter"
--- OUTSIDE RECORDS SUMMARY | ~2019-11-08 | XMS | Encounter Summary ---
Demographics + + + | Address | [address] | | | [place] [address] | + + + | Home Phone | | + + + | Preferred Language | Unknown | + + + | Marital Status | | + + + | Mandaeism Affiliation | Unknown | + + + | Race | Unknown | + + + | Ethnic Group | Unknown | + + + Author + + + | Author | [facility] | | | and [place] | + + + | Organization | [facility] | | | and [place] | + + + | Address | Unknown | + + + | Phone | Unavailable | + + + Support + + + + + | Name | Relationship | Address | Phone | + + + + + | Darius Fields | HELEN | [address] | | | | | , [address] | | + + + + + Care Team Providers + +------+ + | Care Lock Installer Name | Role | Phone | + +------+ + | Francine Sanford NP | PCP | | + +------+ + Reason for Visit + + + | Reason | Comments | + + + | Follow-up | Atrophic kidney | + + + Encounter Details +--------+---------+ + + + | Date | Type | Department | Care Team | Description | +--------+---------+ + + + | 05/18/ | Office | [facility] | Toi Gonzalez | History of recurrent | | 2018 | Visit | [address] | MD Leighann [address] | UTIs (Primary Dx); | | | | [place], [place] | [place], [place] | History of | | | | [address] | [address] | hydronephrosis | | | | [phone] | | | +--------+---------+ + + + [...] + | Blood Pressure | 128/80 | 05/18/2018 10:12 AM | | | | | PDT | | + + + + + | Pulse | 104 | 05/18/2018 10:12 AM | | | | | PDT | | + + + + + | Temperature | - | - | | + + + + + | Respiratory Rate | 18 | 05/18/2018 10:12 AM | | | | | PDT | | + + + + + | Oxygen Saturation | - | - | | + + + + + | Inhaled Oxygen | - | - | | | Concentration | | | | + + + + + | Weight | 80.7 kg (177 lb 14.6 | 05/18/2018 10:12 AM | | | | oz) | PDT | | + + + + + | Height | 162.6 cm (5' 4.02") | 05/18/2018 10:12 AM | | | | | PDT | | + + + + + | Body Mass Index | 30.52 | 05/18/2018 10:12 AM | | | | | PDT | | + + + + + documented in this encounter Functional Status + + + [...] + documented as of this encounter Progress Toi Talley MD - 05/18/2018 9:30 AM PDTFormatting of this note might be different f rom the original. Chief Complaint Patient presents with Follow-up Atrophic kidney HPI Samreenrachel Zaragoza is a 53 y.o. female patient of Francine Sanford NP here today for a follow up for right Atrophic kidney. S/p right nephrectomy (04/09/18) for recurrent infections after developing an anastomotic st ricture Doing well since surgery, reports no abdominal pain, no N/V She does report altered sensation of her right colon pouch. She states that she does not k now when it is full however later on during the conversation she will stated that sometimes at night she feels like she has to catheterize himself more frequently. She cannot explain how it is she feels like she needs to catheterize more frequently and yet doesn't know when she is full. Patient process state that she has been more dehydrated since the surgery however later on she would discuss how she is dramatically increased how much she is drinking and she is havi ng to catheterize more due to increased urine output. Regardless the patient feels better and denies any significant problems. Assessment Samreen was seen today for follow-up. Diagnoses and all orders for this visit: History of recurrent UTIs History of hydronephrosis Plan F/U prn Past Medical History Past Medical History: Diagnosis Date Asthma Atrophy of right kidney Bladder extrophy Exstrophy of urinary bladder Fibromyalgia Hypertension Kidney disease Kidney stones MRSA (methicillin resistant Staphylococcus aureus) Internal Recurrent UTI Urinary retention Wears dentures upper Wears partial dentures upper Past Surgical History Past Surgical History: Procedure Laterality Date Reconstructed stoma for urine 2005 ABDOMINAL PROCEDURES before age 4. at 17 , at 18 CHOLECYSTECTOMY 2006 DILATION AND CURETTAGE OF UTERUS 2 times KIDNEY REMOVAL Right 04/09/2018 Procedure: Open Right Nephrectomy; Surgeon: Toi Gonzalez MD; Location: [facility] N OR Edwards Pouch 2005 [facility] nicked bowel, hospitalized x3 weeks [facility] 1998 PMDD Family History: Family History Problem Relation Age of Onset Fibromyalgia Mother Heart disease Mother Cancer Maternal Grandmother Prostate cancer Maternal Grandfather Heart disease Maternal Grandfather Social History: Social History Social History Marital status: Spouse name: N/A Number of children: N/A Years of education: N/A Social History Main Topics Smoking status: Former Smoker Packs/day: 0.30 Types: Cigarettes Quit date: 08/2017 Smokeless tobacco: Never Used Alcohol use No Drug use: Yes Frequency: 14.0 times per week Types: Marijuana Comment: 1-2 times per day Sexual activity: Not Asked Other Topics Concern None Social History Narrative None Allergies Allergen Reactions Codeine Sulfate Itching and Nausea And Vomiting Iodinated Diagnostic Agents Itching IV Contrast Nsaids Nausea And Vomiting Penicillins Nausea And Vomiting Latex Rash Medications: Current Outpatient Prescriptions: albuterol (VENTOLIN HFA) 90 mcg/puff inhaler, Inhale 2 puffs into the lungs every 6 ho urs as needed for Wheezing., Disp: , Rfl: diphenhydrAMINE (BENADRYL) 25 MG capsule, Take 1 pill [address] scan, Disp: 1 c apsule, Rfl: 2 fluticasone (FLOVENT HFA) 44 mcg/puff inhaler, Inhale 2 puffs into the lungs 2 times d aily., Disp: , Rfl: Incontinence Supplies MISC, 14 bulgarian urinary catheters. Catheterize 7 times daily. Le ngth of need: Lifetime. Diagnosis: Bladder extrophy Q64.10., Disp: 210 each, Rfl: 11 raNITIdine (ZANTAC) 150 MG capsule, Take 150 mg by mouth nightly., Disp: , Rfl: ROS Gen.: No fever no chills GI: No nausea no vomiting Pulmonary: No wheezing or coughing Cardio: No chest pain or shortness of breath Objective BP 128/80 | Pulse 104 | Resp 18 | Ht 1.626 m (5' 4.02") | Wt 80.7 kg (177 lb 14.6 oz) | BMI 30.52 kg/m General Appearance: Alert, cooperative, no distress, appears stated age Head: Normocephalic, without obvious abnormality, atraumatic Eyes: PERRL, conjunctiva/corneas clear, EOM's intact Throat: Lips, mucosa, and tongue normal; no gross deformities, mmm Neck: Supple, symmetrical, no adenopathy Lungs: Regular, unlabored breathing MS No CVA tenderness, no spinal tenderness, no scoliosis present Abdomen: incision shows no signs of infection, no erythema, or discharge, no hernia pres ent. Still appropriately ttp along the incision Extremities: Extremities normal, atraumatic, no cyanosis, clubbing, [...] seen Results for orders placed or performed during the hospital encounter of 04/09/18 CBC no Differential Result Value Ref Range WBC 19.8 (H) 4.0 - 11.0 K/uL RBC 4.35 3.70 - 5.20 M/uL Hgb 14.2 11.5 - 16.0 g/dL Hct 40.7 34.0 - 47.0 % MCV 93.5 83.0 - 101.0 fL MCH 32.6 28.0 - 35.0 pg MCHC 34.8 32.0 - 36.0 g/dL RDW-CV 13.0 <15.0 % Platelet Count 336 140 - 440 K/uL MPV 8.6 fL Basic Metabolic Panel Result Value Ref Range NA 135 (L) 136 - 149 mmol/L K 3.5 3.5 - 5.1 mmol/L CL 104 98 - 109 mmol/L CO2 24 24 - 31 mmol/L ANION GAP 7 3 - 16 mmol/L GLUCOSE 140 (H) 70 - 109 mg/dL BUN 15 7 - 18 mg/dL Creatinine, Serum/Plasma 0.86 0.60 - 1.30 mg/dL eGFR if not >60 >=60 mL/min/1.73m2 CALCIUM 8.8 8.3 - 10.5 mg/dL BUN/CREA 17.4 CBC with Differential Result Value Ref Range WBC 20.3 (H) 4.0 - 11.0 K/uL RBC 3.95 3.70 - 5.20 M/uL Hgb 12.9 11.5 - 16.0 g/dL Hct 37.2 34.0 - 47.0 % MCV 94.1 83.0 - 101.0 fL MCH 32.6 28.0 - 35.0 pg MCHC 34.7 32.0 - 36.0 g/dL RDW-CV 12.8 <15.0 % Platelet Count 291 140 - 440 K/uL MPV 9.1 fL % Neutrophils 87.2 (H) 45.0 - 82.0 % % Lymphocytes 7.8 (L) 20.0 - 45.0 % % Monocytes 4.5 4.0 - 12.0 % % Eosinophils 0.1 0.0 - 5.0 % % Basophils 0.4 0.0 - 1.0 % Absolute Neutrophils 17.70 (H) 1.80 - 8.50 K/uL Absolute Lymphocytes 1.60 0.60 - 3.20 K/uL Absolute Monocytes 0.90 0.00 - 1.00 K/uL Absolute Eosinophils 0.00 0.00 - 0.40 K/uL Absolute Basophils 0.10 0.00 - 0.10 K/uL CBC with Differential Result Value Ref Range WBC 12.5 (H) 4.0 - 11.0 K/uL RBC 3.72 3.70 - 5.20 M/uL Hgb 12.0 11.5 - 16.0 g/dL Hct 34.4 34.0 - 47.0 % MCV 92.4 83.0 - 101.0 fL MCH 32.2 28.0 - 35.0 pg MCHC 34.8 32.0 - 36.0 g/dL RDW-CV 12.7 <15.0 % Platelet Count 261 140 - 440 K/uL MPV 9.3 fL % Neutrophils 78.1 45.0 - 82.0 % % Lymphocytes 12.9 (L) 20.0 - 45.0 % % Monocytes 6.0 4.0 - 12.0 % % Eosinophils 2.8 0.0 - 5.0 % % Basophils 0.2 0.0 - 1.0 % Absolute Neutrophils 9.80 (H) 1.80 - 8.50 K/uL Absolute Lymphocytes 1.60 0.60 - 3.20 K/uL Absolute Monocytes 0.80 0.00 - 1.00 K/uL Absolute Eosinophils 0.40 0.00 - 0.40 K/uL Absolute Basophils 0.00 0.00 - 0.10 K/uL Basic Metabolic Panel Result Value Ref Range NA 134 (L) 136 - 149 mmol/L K 3.1 (L) 3.5 - 5.1 mmol/L CL 99 98 - 109 mmol/L CO2 27 24 - 31 mmol/L ANION GAP 8 3 - 16 mmol/L GLUCOSE 124 (H) 70 - 109 mg/dL BUN 7 7 - 18 mg/dL Creatinine, Serum/Plasma 0.69 0.60 - 1.30 mg/dL eGFR if not >60 >=60 mL/min/1.73m2 CALCIUM 8.4 8.3 - 10.5 mg/dL BUN/CREA 10.1 ECG 12 lead Result Value Ref Range VENTRICULAR RATE EKG 121 BPM ATRIAL RATE 121 BPM P-R INTERVAL 122 ms QRS DURATION 70 ms Q-T INTERVAL 326 ms Q-T INTERVAL (CORRECTED) 462 ms P WAVE AXIS 38 degrees QRS AXIS 0 degrees T AXIS 11 degrees INTERPRETATION TEXT Sinus tachycardia Otherwise normal ECG When compared with ECG of 13-FEB-2018 11:37, premature atrial complexes are no longer present Confirmed by REMINGTON GRANT MD ([id number]) on 04/12/2018 10:25:41 AM Type and Screen Result Value Ref Range ABO A Rh Type Positive Antibody Screen Negative Lab Results Component Value Date CREA 0.69 04/12/2018 Francine Sanford NP's notes were reviewed in clinic today. Return if symptoms worsen or fail to improve.. CC: Francine Sanford NP, [facility] [place] U[facility], [place], [place] documented in this encounter Plan of Treatment +--------+---------+ + + + | Date | Type | Specialty | Care Team | Description | +--------+---------+ + + + | 12/02/ | Office | Gastroenterology | [facility], | | | 2019 | Visit | | [address] | | | | | | [address] | | | | | | [place] | | | | | | [phone] | | | | | | | | +--------+---------+ + + + documented as of this encounter Visit Diagnoses + + | Diagnosis | + + | History of recurrent UTIs - Primary Personal history of urinary (tract) infection | + + | History of hydronephrosis Personal history of other disorder of urinary system | + + documented in this encounter
--- OUTSIDE RECORDS SUMMARY | ~2019-11-08 | XMS | Encounter Summary ---
Demographics + + + | Address | [address] | | | [place] [address] | + + + | Home Phone [...] | | | | | [place] [address] | | + + + + + Care Team Providers + +------+ + | Care Plate [place] Name | Role | Phone | [...] phone follow-up | | 2009 | | [phone] | Urology/Oncology | | | | | Mailcode: [id number] | | | | | | [facility] | | | | | | and Healing, | | | | | | [address] | | | | | | Floor [place], [place] | | | | | | [address] | | | | | | [phone] | | | +--------+ + + + [...]
--- OUTSIDE RECORDS SUMMARY | ~2019-11-08 | XMS | Encounter Summary ---
Demographics + + + | Address | [address] | | | [place] [address] | + + + | Home Phone | | + + + | Preferred Language | Unknown | + + + | Marital Status | | + + + | Christian Affiliation | Unknown | + + + | Race | Unknown | + + + | Ethnic Group | Unknown | + + + Author + + + | Author | [facility] | | | and [place] | + + + | Organization | [facility] | | | and [place] | + + + | Address | Unknown | + + + | Phone | Unavailable | + + + Support + + + + + | Name | Relationship | Address | Phone | + + + + + | Darius Diamond [address] | [address] | | | | | , [address] | | + + + + + Care Team Providers + +------+ + | Care Optical Glass Sawyer Name | Role | Phone | + +------+ + | Francine Sanford NP | PCP | | + +------+ + Encounter Details +--------+ + + + + | Date | Type | Department | Care Team | Description | +--------+ + + + + | 04/02/ | Imaging | [facility] | Provider, | | | 2018 | Exam | [facility] | [address] | | | | | IMAGING | [address] | | | | | [phone] | [place] [address] | | +--------+ + + + + [...] | 12/02/ | Office | Gastroenterology | [facility], | | | 2020 | Visit | | [address]AN [address] | | | | | | [address] | | | | | | [place] | | | | | | [address] | | | | | | | [...] for comparison only - no result from [place]. | [facility] | + + + + +---------+ + + | Performing | Address | City/State/Zipcode | Phone Number | | Organization | | | | + +---------+ + + | [facility] | | | | + +---------+ + + documented in this encounter Visit Diagnoses Not on filedocumented in this encounter"
--- OUTSIDE RECORDS SUMMARY | ~2019-11-08 | XMS | Encounter Summary ---
Demographics + + + | Address | [address] | | | [place] [address] | + + + | Home Phone [...] | | | | | [place] [address] | | + + + + + Care Team Providers + +------+ + | Care Healthcare Sales Representative Name | Role | Phone | + +------+ + | Rona Lyons MD | PCP | | + +------+ + Encounter Details +--------+ + + + + | Date | Type | Department | Care Team | Description | +--------+ + + + + | 11/22/ | Discharge | | Summary, Discharge | D/C Summary ODDS | | 2005 | Summary-Tra | | | | | | nscribed | | | | +--------+ + + [...] + + documented as of this encounter Discharge Summaries Interface, Drug Safety Data Management Specialist In - 11/27/2005 2:05 AM PST [id number] NOEMY Smith Admission Date: 11/03/2005 Discharge Date: 11/22/2005 Referring Physician: Rona Lyons MD Staff Physician: Reinaldo Flowers M.D. Principal Final Diagnosis: Leaking Edwards pouch. Secondary Diagnosis: Inability to catheterize Edwards pouch. 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 2. Degenerative disk disease. 3. Anxiety. 4. Asthma. 5. Tobacco use. Principal Procedure: Edwards pouch revision on November 04, 2005. Additional Procedures: 1. Psychiatry consultation. 2. Otolaryngology consultation. 3. CT scan of the abdomen and pelvis. 4. Nutrition consult for total parenteral nutrition. 5. IV antibiotics. History of Present Illness: This is a 40-year-old female with a history of bladder exstrophy who was experiencing normal Edwards pouch function until the patient required endoscopic removal of stones from the pouch. Following this, she was not able to catheterize the pouch successfully, and there was leakage from the pouch. Hospital Course: Postoperatively, the patient had an enterocutaneous fistula developed mainly to the old Edwards pouch catheterization site. The fistula was low volume and drained via the old Edwards pouch catheterization site and the leak drain. The patient was made NPO and placed on TPN and IV antibiotics for approximately 10 days. During this time, the drainage diminished dramatically. The patient remained afebrile with a normal white blood cell count. Her leak drain was eventually removed and as the drainage turned to serosanguineous at the old Edwards pouch catheterization site, the patient was begun on p.o. nutrition. She was able to eat well and had normal bowel function. Her white blood cell count remained normal, and she remained afebrile. The patient was transitioned to oral antibiotics, as the total parenteral nutrition was discontinued. At the time of discharge, the patient has [address]: one catheter exits most superiorly on the abdomen and is a percutaneous tube draining the Edwards pouch. The next catheter inferiorly is the catheter that is at the site of the new catheterization entry into the Edwards pouch. It is this catheter, the inferior catheter, that the patient should have removed first in the clinic, and the patient should begin to catheterize on a regular basis through this site. At this site, there is a Loc-type conduit into the Edwards pouch. The superior most catheter should remain as an emergency valve in case the patient has trouble catheterizing through the lower Loc site. On the day of discharge, the patient is afebrile, and the vital signs are stable. The patient is tolerating a regular diet and using oral analgesics for controlling her pain. She has 2 areas on her abdomen that are being packed b.i.d. with new gauze dressing and covered with gauze 4 x4. She and her partner have been instructed on how to do this dressing change. The remainder of the wound is clean, dry, and intact, and there is no erythema on the abdomen. The patient and her partner have been irrigating her Edwards pouch on a regular basis successfully. The patient is ambulating and experiencing normal bowel habits. Her urine has been drained into the bag via the lower catheter. Condition on Discharge: Good. Discharge Medication(s): 1. Ciprofloxacin 500 mg p.o. b.i.d. x3 weeks #42, no refills. 2. Flagyl 500 mg p.o. q.i.d. x3 weeks #63. 3. Nystatin oral suspension 5 mL swish and swallow q.i.d. 4. Colace 100 mg p.o. b.i.d. #60 hold for loose stools. 5. Zantac 150 mg p.o. b.i.d. #60, no refills. 6. Oxycodone 5 mg to 20 mg p.o. q.4 h. p.r.n. pain #100, no refills. 7. Tylenol 325 mg tablets 1 to 2 tablets p.o. q.6 h. p.r.n. #100, no refills. 8. Methyl salicylate cream applied to skin q.6 h. p.r.n. muscle soreness 2 bottles, no refills. 9. Phenergan 12.5 mg 1 to 2 tablets p.o. q.6 h. p.r.n. nausea, #20, no refills. 10. Nasal spray, saline 1 spray each nostril q.1 h. p.r.n. #1 bottle, no refills. 11. The patient is to continue her other medications which include Valium 10 mg p.o. b.i.d., Prozac 60 mg p.o. daily, Advair 1 puff b.i.d., albuterol MDI 1 puff q.6 h. p.r.n., trazodone 50 mg p.o. nightly p.r.n. Discharge Instruction(s): Follow up is with Dr. Rona Lyons next week, early November 2005. Dr. Reinaldo Flowers indicated that he would call Dr. Lyons to discuss the future care of this patient. Diet: Regular diet. Activity: No driving while taking narcotic analgesics. Restrictions: No lifting greater than 20 pounds for 6 weeks. Special instructions: The patient is to pack her wounds with 1/4-inch or 1/2-inch plain new gauze b.i.d. Drain sponges are to be used p.r.n. around the existing catheters. Santiago Cooley M.D. Reinaldo Flowers M.D. Care Administrative Tech Section of Urologic Oncology Division of Urology Renal Transplantation [facility] / [id number] / [id number] / [id number] / cc: Rona Lyons MD [facility], [facility] [place] [address] Electronically signed by Reinaldo Flowers 11-26-2005 01:22:36 PM documented i n this encounter Plan of Treatment Not on filedocumented as of this encounter Visit Diagnoses Not on filedocumented in this encounter"
--- OUTSIDE RECORDS SUMMARY | ~2019-11-08 | XMS | Encounter Summary ---
Demographics + + + | Address | [address] | | | [place] [address] | + + + | Home Phone | | + + + | Preferred Language | Unknown | + + + | Marital Status | Single | + + + | Jew Affiliation | CHR | + + + | Race | White | + + + | Ethnic Group | Not or | + + + Author + + + | Author | [facility] | + + + | Organization | [facility] | + + + | Address | Unknown | + + + | Phone | Unavailable | + + + Support + + + + + | Name | Relationship | Address | Phone | + + + + + | Darius Fields | HELEN | [address] | | | | | [place] [address] | | + + + + + Care Team Providers + +------+ + | Care Kettle Skimmer Name | Role | Phone | + +------+ + | Serena Barroso | PCP | | + +------+ + Reason for Visit + + + | Reason | Comments | + + + | UTI - Urinary tract | mrsa | | infection | | + + + Encounter Details +--------+ + + + + | Date | Type | Department | Care Team | Description | +--------+ + + + + | 06/15/ | Telephone | Urology Adult | Kristie, | UTI - Urinary tract | | 2007 | | [address] | MD Reinaldo | infection (mrsa) | | | | Mailcode: CH10U | | | | | | [facility] | | | | | | and Healing, | | | | | | Building [address], | | | | | | Floor [place], [place] | | | | | | [address] | | | | | | [phone] | | | +--------+ + + + [...]
--- OUTSIDE RECORDS SUMMARY | ~2019-11-08 | XMS | Encounter Summary ---
Demographics + + + | Address | [address] | | | [place] [address] | + + + | Home Phone [...] + | Organization | [facility] [...] #[address] | | | | | , [address] | | + + + + + Care Team Providers + +------+ + | Care Chief Architect Name | Role | Phone | + +------+ + PCP | Unavailable | + +------+ + Encounter Details +--------+ + + + + | Date | Type | Department | Care Team | Description | +--------+ + + + + | 04/13/ | [facility] | [facility] | Evan Bolton | | | 2007 - | Encounter | MED CTR EMERGENCY | MD [address] | | | | | [place] [address] | [place] | | | 04/14/ | | [place], [place] | [place] [address] | | | 2007 | | [address] | [phone] | | | | | [phone] | | | +--------+ + + + [...] | [facility], | | | 2019 | Visit | | CRISTHIAN Carbone [address] | | | | | | [address] | | | | | | [place] | | | | | | [address] | | | | | | | | +--------+---------+ + + + documented as of this encounter Visit Diagnoses Not on filedocumented in this encounter"
--- OUTSIDE RECORDS SUMMARY | ~2019-11-08 | XMS | Encounter Summary ---
Demographics + + + | Address | [address] | | | [place] [address] | + + + | Home Phone [...] | | | | | [place] [address] | | + + + + + Care Team Providers + +------+ + | Care Graduate Advisor Name | Role | Phone | + +------+ + | Serena Barroso | PCP | | + +------+ + Encounter Details +--------+ + + + + | Date | Type | Department | Care Team | Description | +--------+ + + + + | 11/05/ | DELETED | Preoperative | Consult, | ANESTHESIA/SEDATION | | 2005 | TRANSCRIPTI | Medicine Clinic at | Anesthesia [address] | | | | ON | [facility] 4th Floor [address] | [facility] | | | | | [facility] | Road [place], [place] | | | | | Mailcode: [facility] | [id number] | | | | | [facility] | | | | | | and Healing, | | | | | | Building 1,4th Floor | | | | | | [place], [place] | | | | | | [address] | | | | | | [phone] | | | +--------+ + + + [...]
--- OUTSIDE RECORDS SUMMARY | ~2019-11-08 | XMS | Encounter Summary ---
Demographics + + + | Address | [address] | | | [place] [address] | + + + | Home Phone | | + + + | Preferred Language | Unknown | + + + | Marital Status | Single | + + + | Mormonism Affiliation | CHR | + + + | Race | White | + + + | Ethnic Group | Not or | + + + Author + + + | Author | [facility] | + + + | Organization | [facility] | + + + | Address | Unknown | + + + | Phone | Unavailable | + + + Support + + + + + | Name | Relationship | Address | Phone | + + + + + | Darius Fields | HELEN | [address] | | | | | [place] [address] | | + + + + + Care Team Providers + +------+ + | Care Senior Peoplesoft Developer Name | Role | Phone | + +------+ + | Rona Lyons MD | PCP | | + +------+ + Reason for Visit + + + | Reason | Comments | + + + | Blood in urine | | + + + Encounter Details +--------+ + + + + | Date | Type | Department | Care Team | Description | +--------+ + + + + | 03/20/ | Telephone | Urology Oncology | [address] | Blood in urine | | 2006 | | [address] | [address] | | | | | Mailcode: CH10U | Road [place], [place] | | | | | [facility] | [address] | | | | | and Healing, | | | | | | Building | | | | | | Floor [place], [place] | | | | | | [address] | | | | | | [phone] | | | +--------+ + + + [...]
--- OUTSIDE RECORDS SUMMARY | ~2019-11-08 | XMS | Encounter Summary ---
Demographics + + + | Address | [address] | | | [place] [address] | + + + | Home Phone | | + + + | Preferred Language | Unknown | + + + | Marital Status | Single | + + + | Amish Affiliation | CHR | + + + | Race | White | + + + | Ethnic Group | Not or | + + + Author + + + | Author | [facility] | + + + | Organization | [facility] | + + + | Address | Unknown | + + + | Phone | Unavailable | + + + Support + + + + + | Name | Relationship | Address | Phone | + + + + + | Darius Fields | HELEN | [address] | | | | | [place] [address] | | + + + + + Care Team Providers + +------+ + | Care Keeper Helper Name | Role | Phone | + +------+ + | Rona Lyons MD | PCP | | + +------+ + Reason for Visit + + + | Reason | Comments | + + + | Follow-up visit | Consult | + + + Encounter Details +--------+---------+ + + + | Date | Type | Department | Care Team | Description | +--------+---------+ + + + | 05/21/ | Office | Urology Adult | [place], | Hematuria; | | 2006 | Visit | [address] | MD Reinaldo | Hydronephrosis | | | | Mailcode: CH10U | | | | | | [facility] | | | | | | and [place], | | | | | | Building | | | | | | [place], [place] | | | | | | [address] | | | | | | [phone] | | | +--------+---------+ + + + [...] + + + | Blood Pressure | 142/78 | 05/21/2007 3:50 PM | | | | | PDT | | + + + + + | Pulse | 108 | 05/21/2007 3:50 PM | | | [...] + + + + | Weight | 63.7 kg (140 lb 6.4 | 05/21/2007 3:50 PM | | | | oz) | PDT | | + + + + + | Height | 162.6 cm (5' 4") | 05/21/2007 3:50 PM | | | | | PDT | | + + + + + | Body Mass Index | 24.1 | 05/21/2007 3:50 PM | | | | | PDT | | + + + + + documented in this encounter Progress Notes Reinaldo Flowers - 05/25/2007 11:35 PM PDT UROLOGIC ONCOLOGY CLINIC- FOLLOW-UP NOTE [...] catheterizing her pouch with a 14F catheter without pr oblems. She says she is continent for the most part and only has occasional "quarter size" leakage. She does not wear any protection for this. She catheterizes every 2-6 hours ang ge ts volumes of 250 to max of 850cc. She says she recently self dilated to 16F with a catheter . She is complaining of increasing right flank pain and on evaluation she was found to have right hydronephrosis and an increasing creatinine. She is here for further evaluation and treatment. She is asking for narcotic pain medicine. OBJECTIVE: BP 142/78 | Pulse 108 | Ht 1.626 m (5' 4") | Wt 63.685 kg (140 lbs 6.4 oz) General: Alert and oriented, [...] ureter near the anastomosis with the diversion. Lab Results Lab Test Name Results Date/Time NA 136 11/23/2005 K 3.2 11/23/2005 CL 103 11/23/2005 BICARB 26 11/23/2005 BUN 8 11/23/2005 CR 0.8 11/23/2005 GLU 91 11/23/2005 CA 8.4 11/23/2005 Recent Cr 1.3 ASSESSMENT: Status post revision of continent cutaneous urinary diversion. 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 PLAN: I reassured her that the hydronephrosis on the right side is chronic, but due to the recen t increase in her pain and creatinine, it may be worthwhile further evaluating the right sys tem and possibly treating the uretero-ileal anastamotic stricture. We will plan on a renal scan with Lasix washout on 06/09/07 with a clinic visit to follow. It is imperative she has a catheter in her continent reservoir in order to get an accurate result. If she has significant stenosis and delay, we will admit her for a percutaneous nephrostomy tube placement and plan on endoscopic balloon dilation on 06/10/07. Lacy Flowers M.D. drilling machine runner Section of Urologic Oncology Division of Urology & Renal Transplantation [facility] documented in this enc ounter Plan of Treatment Not on filedocumented as of this encounter Procedures + +--------+ + + + | Procedure Name | Priori | Date/Time | Associated Diagnosis | Comments | | | ty | | | | + +--------+ + + + | NM KIDNEY FUNCTION | Routin | 06/09/2007 | Hydronephrosis | Results for this | | FLOW & FUNCTION WWO | e | 10:40 AM | | procedure are in the | | PHARM | | PDT | | results section. | + +--------+ + + + | UA 10 DIP POC | Routin | 05/21/2007 | Hematuria | Results for this | | | e | 4:22 PM | | procedure are in the | | | | PDT | | results section. | + +--------+ + + + documented in this encounter Results NM KIDNEY FUNCTION FLOW & FUNCTION WITH & WITHOUT PHRAM (06/09/2007 10:40 AM PDT) + + + + + + | Component | Value | Ref Range | Performed | Pathologist | | | | | At | Signature | + + + + + + | NM KIDNEY | Radiologist 1: MARVIN, | | | | | FLOW&FXN | MICAH, | | | | | W/WO PHRM | M.D.-Radiologist 2: | | | | | | MICAH WONG, | | | | | | M.D.STUDY: Mag-3 Renal | | | | | | Scan with Lasix. | | | | | | HISTORY: Hydronephrosis | | | | | | of hte right kidney, | | | | | | status post | | | | | | urinarydiversion. | | | | | | COMPARISON: None. | | | | | | PROCEDURE: The patient | | | | | | is well hydrated prior | | | | | | to the study.Tc-99m | | | | | | MAG-3 8.46 mCi is given | | | | | | as an intravenous bolus. | | | | | | Immediateposterior | | | | | | planar imaging is done | | | | | | for 20 minutes with the | | | | | | kidneyscentered in the | | | | | | field of view. The | | | | | | bladder diversion | | | | | | wascatheterized for the | | | | | | procedure. Furosemide | | | | | | 20 mg is | | | | | | slowlyadministered | | | | | | intravenously and | | | | | | imaging continues until | | | | | | tracer hascleared the | | | | | | renal pelvis. The | | | | | | percent of total uptake | | | | | | (ERPF) isdetermined with | | | | | | regions of interest | | | | | | around the kidneys and | | | | | | countsobtained between | | | | | | 1-2 minutes. Time | | | | | | activity curves are | | | | | | drawn withcortical | | | | | | regions of interest. | | | | | | Following lasix, time | | | | | | activitycurves also are | | | | | | drawn with regions of | | | | | | interest around the | | | | | | renalpelvis. The T 1/2 | | | | | | is calculated with | | | | | | cursors at the peak | | | | | | andbottom of the | | | | | | downsloping portion of | | | | | | the curve. This was | | | | | | obtainedonly for the | | | | | | kidney of interest on | | | | | | the right as it was | | | | | | necessaryto image the | | | | | | patient in the RPO | | | | | | position to decrease | | | | | | overlappingactivity in | | | | | | the neobladder. However | | | | | | the left was visually | | | | | | normal.FINDINGS: There | | | | | | is normal flow and | | | | | | nephrographic phase in | | | | | | the left kidney.Prompt | | | | | | excretion and clearance | | | | | | is seen. There is | | | | | | relativelydecreased flow | | | | | | to the right kidney. | | | | | | ERPF is | | | | | | asymmetricallydistribute | | | | | | d to the left 80% and | | | | | | right 20%. Excretion is | | | | | | seen with activity | | | | | | accumulating in the | | | | | | neobladder.This did | | | | | | overlap with the right | | | | | | kidney and the patient | | | | | | was placedin the RPO | | | | | | position for better | | | | | | visualization. Slow | | | | | | excretion andclearance | | | | | | were observed at the | | | | | | twenty minute point and | | | | | | lasix wasadministered. | | | | | | Clearance of the renal | | | | | | pelvis was again | | | | | | observed tonia slow. | | | | | | Lasix T1/2 was | | | | | | prolonged at 49.7 | | | | | | minutes for the | | | | | | rightkidney.IMPRESSION: | | | | | | 1. Abnormal prolonged | | | | | | Lasix T1/2 for the right | | | | | | kidney at 49.7minutes. | | | | | | This may be related to | | | | | | obstruction, however | | | | | | the contributionto this | | | | | | time from decreased | | | | | | responsiveness to lasix | | | | | | is a factor ofunknown | | | | | | magnitude. 2. ERPF | | | | | | asymmetrically | | | | | | distributed 80% to the | | | | | | left and 20% to | | | | | | theright. | | | | + + + + + + + + | Specimen | + + | | + + + +---------+ + + | Performing | Address | City/State/Zipcode | Phone Number | | Organization | | | | + +---------+ + + | [facility] DEPARTMENT OF | | | | | RADIOLOGY | | | | + +---------+ + + UA DIPSTICK ONLY, POC (05/21/2007 4:22 PM PDT) + +--------+ + + + | Component | Value | Ref Range | Performed | Pathologist | | | | | At | Signature | + +--------+ + + + | COLOR(UR) | Yellow | | [facility] | | | | [...] +--------+ + + + | PROTEIN(LAB | Trace | mg/dL | [facility] | | | [...] +--------+ + + + | SPECIFIC | 1.010 | 1.004 - 1.03 | [facility] | [...] | RONNY CALIXTO | [address] | [place], [place] | | | [place], POINT OF CARE | [address] | [address] | | | TESTS | | | | + + + + + | [facility] | [address] | [place], [place] | | | TESTS | [address] | [address] | | + + + + + documented in this encounter Visit Diagnoses + + | Diagnosis | + + | Hematuria | + + | Hydronephrosis | + + documented in this encounter
--- OUTSIDE RECORDS SUMMARY | ~2019-11-08 | XMS | Encounter Summary ---
Demographics + + + | Address | [address] | | | [place] [address] | + + + | Home Phone [...] | | | | | [place] [address] | | + + + + + Care Team Providers + +------+ + | Care Telecommunication Engineer Name | Role | Phone | [...] as of this encounter Discharge Summaries Interface, Hat Lacer In - 11/27/2005 2:05 AM PST [id number] NOEMY Smith Admission Date: 11/03/2005 Discharge Date: [...] catheters. Santiago Cooley M.D. Reinaldo Flowers M.D. Roll Handler Section of Urologic Oncology Division of Urology Renal Transplantation [facility] / [id number] / [id number] / [id number] / cc: Rona Lyons MD [facility], [facility] [place] [address] Electronically signed by Reinaldo Flowers 11-26-2005 01:22:36 PM documented i n this encounter Plan of Treatment Not on filedocumented as of this encounter Visit Diagnoses Not on filedocumented in this encounter"
--- OUTSIDE RECORDS SUMMARY | ~2019-11-08 | XMS | Encounter Summary ---
Demographics + + + | Address | [address] | | | [place] [address] | + + + | Home Phone | | + + + | Preferred Language | Unknown | + + + | Marital Status | | + + + | Anabaptist Affiliation | Unknown | + + + | Race | Unknown | + + + | Ethnic Group | Unknown | + + + Author + + + | Author | [facility] | | | and [place] | + + + | Organization | [facility] | | | and [place] | + + + | Address | Unknown | + + + | Phone | Unavailable | + + + Support + + + + + | Name | Relationship | Address | Phone | + + + + + | Darius Fields | ECON | [address] | | | | | , [address] | | + + + + + Care Team Providers + +------+ + | Care Daycare Director Name | Role | Phone | + +------+ + PCP | Unavailable | + +------+ + Encounter Details +--------+ + + + + | Date | Type | Department | Care Team | Description | +--------+ + + + + | 10/22/ | Hospital | [facility] | | | | 2006 - | Encounter | MED CTR EMERGENCY | | | | | | CENTER [address] | | | | 10/26/ | | [place] | | | | 2006 | | [address] | | | | | | [phone] | | | +--------+ + + + [...] | 12/02/ | Office | Gastroenterology | [facility], | | | 2020 | Visit | | CRISTHIAN Carbone [address] | | | | | | [address] | | | | | | [place] | | | | | | [address] | | | | | | | | +--------+---------+ + + + documented as of this encounter Visit Diagnoses Not on filedocumented in this encounter"
--- OUTSIDE RECORDS SUMMARY | ~2019-11-08 | XMS | Encounter Summary ---
Demographics + + + | Address | [address] | | | [place] [address] | + + + | Home Phone | | + + + | Preferred Language | Unknown | + + + | Marital Status | | + + + | Caodaism Affiliation | Unknown | + + + | Race | Unknown | + + + | Ethnic Group | Unknown | + + + Author + + + | Author | [facility] | | | and [place] | + + + | Organization | [facility] | | | and [place] | + + + | Address | Unknown | + + + | Phone | Unavailable | + + + Support + + + + + | Name | Relationship | Address | Phone | + + + + + | Darius Diamond | ECON | [address] | | | | | , [address] | | + + + + + Care Team Providers + +------+ + | Care Director Of Neurology Name | Role | Phone | + +------+ + PCP | Unavailable | + +------+ + Encounter Details +--------+ + + + + | Date | Type | Department | Care Team | Description | +--------+ + + + + | 10/21/ | Hospital | [facility] | Keya Mckeon, | | | 2006 | Encounter | MED CTR EMERGENCY | MD [address] | | | | | [place] [address] | [address] [place] | | | | | [place] | [address] | | | | | [address] | | | | | | [phone] | | | +--------+ + + + [...] | 12/02/ | Office | Gastroenterology | [facility], | | | 2019 | Visit | | CRISTHIAN Carbone [address] | | | | | | [address] | | | | | | [place] | | | | | | [address] | | | | | | | | +--------+---------+ + + + documented as of this encounter Visit Diagnoses Not on filedocumented in this encounter"
--- OUTSIDE RECORDS SUMMARY | ~2019-11-08 | XMS | Encounter Summary ---
Demographics + + + | Address | [address] | | | [place] [address] | + + + | Home Phone | | + + + | Preferred Language | Unknown | + + + | Marital Status | Single | + + + | Cheondoism Affiliation | CHR | + + + | Race | White | + + + | Ethnic Group | Not or | + + + Author + + + | Author | [facility] | + + + | Organization | [facility] | + + + | Address | Unknown | + + + | Phone | Unavailable | + + + Support + + + + + | Name | Relationship | Address | Phone | + + + + + | Darius Fields | HELEN | [address] | | | | | [place] [address] | | + + + + + Care Team Providers + +------+ + | Care Facilities Locator Name | Role | Phone | + [...] | | insufficienc | MD Reinaldo | S[facility] | | | | | y | [address] | [place] | | | | | Procedures | [address] | Mailcode: | | | | | CT URGRAM | [place], [place] | [address] [facility] | | | | | ABD [address] | [address] | Hospital | | | | | CONTRAST | | [place], [place] | | | | | | | [address] | | | | | | | Phone: | | | | | | | [phone] | | | | | | | Fax: | | | | | | | [phone] | +--------+--------+ + + + + Encounter Details +--------+ + + + + | Date | Type | Department | Care Team | Description | +--------+ + + + + | 06/29/ | Hospital | Radiology/Imaging | | | | 2008 | Encounter | Lab at [facility] [address] | | | | | | [address] Mailcode: | | | | | | [facility] | | | | | | [facility], | | | | | | [place] [address], [facility] | | | | | | Floor [place], [place] | | | | | | [address] | | | | | | [phone] | | | +--------+ + + + [...] + + documented as of this encounter Medications at Time of Discharge + + + +---------+ + + | Medication | Sig | Dispensed | Refills | Start | End Date | | | | | | Date | | + + + +---------+ + + | ADVAIR DISKUS IN | None Entered | | 0 | | | + + + +---------+ + + | ALBUTEROL IN | None Entered | | 0 | | | + + + +---------+ + + | cyclobenzaprine | Take 10 mg by mouth | | 0 | | | | (FLEXERIL) 10 mg | three times daily as | | | | | | Oral Tablet | needed. Do not use | | | | | | | longer than 2-3 | | | | | | | weeks. | | | | | + + + +---------+ + + | diazepam 5 mg Oral | take 1 tablet (5 mg) | | 0 | | | | Tablet | by oral route 2 | | | | | | | times per day | | | | | + + + +---------+ + + | ESTRACE 1 MG TAB | take 1 tablet (1mg) | | 0 | | | | | by oral route once | | | | | | | daily for 21 days | | | | | | | off for 7 days, | | | | | | | repeat cycle | | | | | + + + +---------+ + + | LUBRICANTS | [place] Jerafaely- Use as | 2 Tubes | 12 | 06/26/20 | | | TOPICALIndications: | directed | | | 06 | | | Bladder extrophy | | | | | | + + + +---------+ + + | MACROBID ORAL | daily | | 0 | | | + + + +---------+ + + | TRAMADOL HCL | Take by mouth as | | 0 | | | | (ULTRAM ORAL) | needed. | | | | | + + + +---------+ + + | Trazodone HCl 50 | 1x daily | | 0 | | | | mg Oral Tablet | | | | | | + + + +---------+ + + documented as of this encounter Plan of Treatment Not on filedocumented as of this encounter Procedures + +--------+ + + + | Procedure Name | Priori | Date/Time | Associated Diagnosis | Comments | | | ty | | | | + +--------+ + + + | CT UROGRAM ABDOMEN | Routin | 06/29/2009 | Renal | Results for this | | WWO IV CONTRAST | e | 2:56 PM | Insufficiency | procedure are in [...] | | + +---------+ + + | [facility] DEPARTMENT OF | | | | | RADIOLOGY | | | | + +---------+ + + documented in this encounter Visit Diagnoses + + | Diagnosis | + + | Renal insufficiency Unspecified disorder of kidney and ureter | + + documented in this encounter"
--- OUTSIDE RECORDS SUMMARY | ~2019-11-08 | XMS | Encounter Summary ---
Demographics + + + | Address | [address] | | | [place] [address] | + + + | Home Phone | | + + + | Preferred Language | Unknown | + + + | Marital Status | | + + + | Protestant Affiliation | Unknown | + + + | Race | Unknown | + + + | Ethnic Group | Unknown | + + + Author + + + | Author | [facility] | | | and [place] | + + + | Organization | [facility] | | | and [place] | + + + | Address | Unknown | + + + | Phone | Unavailable | + + + Support + + + + + | Name | Relationship | Address | Phone | + + + + + | Darius Diamond | ECON | [address] | | | | | , [address] | | + + + + + Care Team Providers + +------+ + | Care Cable Armorer Name | Role | Phone | + +------+ + PCP | Unavailable | + +------+ + Encounter Details +--------+ + + + + | Date | Type | Department | Care Team | Description | +--------+ + + + + | 11/27/ | Hospital | [facility] | Jenny | | | 2007 | Encounter | MED CTR EMERGENCY | Sinan Greenfield MD [address] | | | | | [place] [address] | [place] | | | | | [place], [place] | [place] [address] | | | | | [address] | [phone] | | | | | [phone] | | | +--------+ + + + [...] | 12/02/ | Office | Gastroenterology | [facility], | | | 2019 | Visit | | CRISTHIAN Carbone [address] | | | | | | [address] | | | | | | [place] | | | | | | [address] | | | | | | | | +--------+---------+ + + + documented as of this encounter Visit Diagnoses Not on filedocumented in this encounter"
--- OUTSIDE RECORDS SUMMARY | ~2019-11-08 | XMS | Encounter Summary ---
Demographics + + + | Address | [address] | | | [place] [address] | + + + | Home Phone | | + + + | Preferred Language | Unknown | + + + | Marital Status | | + + + | Anabaptism Affiliation | Unknown | + + + | Race | Unknown | + + + | Ethnic Group | Unknown | + + + Author + + + | Author | [facility] | | | and [place] | + + + | Organization | [facility] | | | and [...] #3 | | | | | , [address] | | + + + + + Care Team Providers + +------+ + | Care Structural Analysis Engineer Name | Role | Phone | + +------+ + PCP | Unavailable | + +------+ + Encounter Details +--------+ + + + + | Date | Type | Department | Care Team | Description | +--------+ + + + + | 06/12/ | [facility] | [facility] | Jenny | | | 2006 | Encounter | MED CTR EMERGENCY | Sinan Greenfield MD [address] | | | | | [address] | [place] | | | | | [place], [place] | [place] [address] | | | | | [address] | [phone] | | | | | [phone] | | | +--------+ + + + [...] | 12/02/ | Office | Gastroenterology | [facility], | | | 2019 | Visit | | CRISTHIAN Carbone [address] | | | | | | [address] | | | | | | [place] | | | | | | [address] | | | | | | | | +--------+---------+ + + + documented as of this encounter Visit Diagnoses Not on filedocumented in this encounter"
--- OUTSIDE RECORDS SUMMARY | ~2019-11-08 | XMS | Encounter Summary ---
Demographics + + + | Address | [address] | | | [place] [address] | + + + | Home Phone | | + + + | Preferred Language | Unknown | + + + | Marital Status | | + + + | Amish Affiliation | Unknown | + + + | Race | Unknown | + + + | Ethnic Group | Unknown | + + + Author + + + | Author | [facility] | | | and [place] | + + + | Organization | [facility] | [...] #3 | | | | | , [address] | | + + + + + Care Team Providers + +------+ + | Care Envelope Sealer Operator Name | Role | Phone | + +------+ + PCP | Unavailable | + +------+ + Encounter Details +--------+ + + + + | Date | Type | Department | Care Team | Description | +--------+ + + + + | 10/26/ | Hospital | [facility] | Arnie Toney MD | | | 2007 - | Encounter | MED CTR GENERIC IP | [address] [facility] | | | | | CONV DEPT [address] | [place], [place] | | | 10/29/ | | [place], | [address] | | | 2007 | | [place] [address] | | | | | | [phone] | | | +--------+ + + + [...] | 12/02/ | Office | Gastroenterology | [facility], | | | 2019 | Visit | | CRISTHIAN Carbone [address] | | | | | | [address] | | | | | | [place] | | | | | | [address] | | | | | | | | +--------+---------+ + + + documented as of this encounter Visit Diagnoses Not on filedocumented in this encounter"
--- OUTSIDE RECORDS SUMMARY | ~2019-11-08 | XMS | Encounter Summary ---
Demographics + + + | Address | [address] | | | [place] [address] | + + + | Home Phone | | + + + | Preferred Language | Unknown | + + + | Marital Status | | + + + | Anglican Affiliation | Unknown | + + + | Race | Unknown | + + + | Ethnic Group | Unknown | + + + Author + + + | Author | [facility] | | | and [place] | + + + | Organization | [facility] | | | and [place] | + + + | Address | Unknown | + + + | Phone | Unavailable | + + + Support + + + + + | Name | Relationship | Address | Phone | + + + + + | Darius Fields | ECON | [address] | | | | | , [address] | | + + + + + Care Team Providers + +------+ + | Care Underwriting Intern Name | Role | Phone | + +------+ + PCP | Unavailable | + +------+ + Encounter Details +--------+ + + + + | Date | Type | Department | Care Team | Description | +--------+ + + + + | 01/13/ | Hospital | [facility] | | | | 2007 | Encounter | MED CTR EMERGENCY | | | | | | CENTER [address] | | | | | | [place] | | | | | | [address] | | | | | | [phone] | | | +--------+ + + + [...] | 12/02/ | Office | Gastroenterology | [facility], | | | 2020 | Visit | | CRISTHIAN Carbone [address] | | | | | | [address] | | | | | | [place] | | | | | | [address] | | | | | | | | +--------+---------+ + + + documented as of this encounter Visit Diagnoses Not on filedocumented in this encounter"
--- OUTSIDE RECORDS SUMMARY | ~2019-11-08 | XMS | Encounter Summary ---
Demographics + + + | Address | [address] | | | [place] [address] | + + + | Home Phone [...] Author + + + | Author | [facility] | + + + | Organization | [facility] | + + + | Address | Unknown | + + + | Phone | Unavailable | + + + Support + + + + + | Name | Relationship | Address | Phone | + + + + + | Darius Fields | HELEN | [address] | | | | | [place] [address] | | + + + + + Care Team Providers + +------+ + | Care Assembling Motor Builder Name | Role | Phone | + +------+ + | Serena Barroso | PCP | | + +------+ + Reason for Visit + + + | Reason | Comments | + + + | Stent removal | | + + + Encounter Details +--------+---------+ + + + | Date | Type | Department | Care Team | Description | +--------+---------+ + + + | 07/30/ | Office | Urology Adult | Kristie, | Hydronephrosis | | 2006 | Visit | [address] | MD Reinaldo | (Primary Dx) | | | | Mailcode: CH10U | | | | | | [facility] | | | | | | and [place], | | | | | | Building | | | | | | Floor [place], [place] | | | | | | [address] | | | | | | [phone] | | | +--------+---------+ + + + [...] + + + | Blood Pressure | 116/64 | 07/30/2007 4:10 PM | | | | | PDT | | + + + + + | Pulse | 114 | 07/30/2007 4:10 PM | | | [...] + + + + | Weight | 69.4 kg (152 lb 14.4 | 07/30/2007 4:10 PM | | | | oz) | PDT | | + + + + + | Height | - | - | | + + + + + | Body Mass Index | 26.25 | 05/21/2007 3:50 PM | | | | | PDT | | + + + + + documented in this encounter Progress Notes Reinaldo Flowers - 08/03/2007 9:09 AM ERIKAI saw the patient with the medical student Letty Villalobos. I was present with the student and personally performed the history and physical examination. I agree with the student's assessment and plan as documented in the note. I wa s present for and actively participated in the dilation of the umbilical stoma, cystoscopy a nd stent removal performed today. Lacy Flowers M.D. 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 She was admitted 06/09/07 for an interventional radiology percutaneous nephrostomy with antegrade balloon dilation of her stricture and stent placemen t. Subjective: She has been doing well and has been catheterizing her pouch with a 14F cathete r with minimal pain. She is not complaining of any incontinence. She is complaining of mild persistent intermittent right flank pain, improved since last visit, and persistent nausea, with good PO intake. She thinks she has had a infection for the last several months, current ly taking macrobid. She is here for her stent removed today. (See Procedure Note) ROS: Denies bone pain, chest pain, shortness of breath, weight loss, fatigue, or significan t pain. OBJECTIVE: BP 116/64 | Pulse 114 | Temp (Src) 98.1 F (36.7 C) (Oral) | Resp 16 | Wt 69.355 kg (152 lbs 14.4 oz) General: Alert and oriented, appears stated age, no obvious distress Abdomen: Soft, NT, nondistended, bowel sounds present. No masses. Multiple surgical scars a nd abdominal defect consistent with bladder extrophy and repair. Catheter site patent withou t erythema, discharge, or granulation tissue. Extremities: Warm and well perfused. No edema. Medications: Current outpatient prescriptions Medication Sig MACROBID OR take two tablets daily every 12 hours Duloxetine (CYMBALTA) 20 mg Oral Capsule, Delayed Release(E.C.) 3 tabs daily Morphine Sulfate 30 mg Oral Capsule 3x daily Buspirone HCl 15 mg Oral Tablet 2x daily Trazodone HCl 50 mg Oral Tablet 1x daily Cyclobenzaprine HCl (FLEXERIL) 10 mg Oral Tablet take 1 tablet (10 mg) by oral route 2 times per day ESTRACE 1 MG TAB take 1 tablet (1mg) by oral route once daily for 21 days off for 7 day s, repeat cycle ALBUTEROL IN None Entered ADVAIR DISKUS IN None Entered CATHETER 14 FR-16" MENTOR BRAND ONLY Please- Use as directed LUBRICANTS TOPICAL [place] Jelly- Use as directed Lab Results Lab Test Name Results Date/Time URINECOLOR yellow 07/30/2007 URINEAPPEARA mod. cloudy 07/30/2007 URINELE large 07/30/2007 URINENITRITE neg 07/30/2007 URINEUROBILI norm 07/30/2007 URINEPROTEIN 300 07/30/2007 URINEPH 7.0 07/30/2007 URINEBLOOD 3+ 07/30/2007 URINESPECGRA 1.015 07/30/2007 URINEKETONES neg 07/30/2007 URINEBILI neg 07/30/2007 URINEGLUCOSE neg 07/30/200706/09 U/S Kidneys Findings: The right kidney demonstrates echogenic parenchyma. It measures 8.2 x 3.7 x 4.3 cm. There is renal pelvic and calyceal fluid, as seen on the prior CT scans. No masses, stones or cysts are identified. The left kidney is unremarkable and measures 9.3 x 5.2 x 5 cm. There is no free fluid in the abdomen. No hydroureter is identified. Impression:Echogenic right kidney with grade 4 hydronephrosis and cortical Thinning. Procedure: (see procedure note for details) 1- dilation of catheterizable stoma to allow for flexible cystoscope to pass 2- Pouchoscopy and stent removal. ASSESSMENT: Status post revision of continent cutaneous urinary diversion and antegrade balloon dilatio n of stricture and stent placement. Stent removed today. - Right (Chronic) hydronephrosis s/p stent placement. Plan: I reassured patient her hydronephrosis is chronic and she should continue her current catheterizing regiment. She has an appointment to follow-up with her PCP and I gave her a r ecommendation for a urologist near her home in [place]. - Return to Clinic in 4 months for pouchogram. Letty Villalobos [facility] Lacy Flowers M.D. buckle sewer machine Section of Urologic Oncology Division of Urology & Renal Transplantation [facility] [place] Adelaida Bansal - 4:04 PM PDTUA done per verbal order Dr. Flowers. documented in this encounter Plan of Treatment Not on filedocumented as of this encounter Procedures + +--------+ + + + | Procedure Name | Priori | Date/Time | Associated Diagnosis | Comments | | | ty | | | | + +--------+ + + + | UA 10 DIP POC | Routin | 07/30/2007 | Hydronephrosis | Results for this | | | e | | | procedure are in the | | | | | | results section. | + +--------+ + + + | MS DIL | Routin | 07/30/2007 | Hydronephrosis | Results for this | | URETHRA,FEMALE,SUBSE | e | | | procedure are in the | | QUENT | | | | results section. | + +--------+ + + + | MS CYSTOSCOPY,REMV | Routin | 07/30/2007 | Hydronephrosis | Results for this | | CALCULUS,SIMPLE | e | | | procedure are in the | | | | | | results section. | + +--------+ + + + documented in this encounter Results MS DIL URETHRA,FEMALE,SUBSEQUENT (07/30/2007) + + + | Narrative | Performed At | + + + | Dilation of urethral stricture Performed to allow cystoscopy of | [facility] | | continent cutaneous diversion The patient was verbally informed | CARE [facility] | | of the dilation procedure and a signed consent was obtained. The | | | patient was placed in the supine position and her abdomen was prepped | | | with Hibiclens. The opening of her continent cutaneous diversion was | | | serially dilated to 18 Fr using amplatz dilators. She tolerated this | | | procedure well. There was no bleeding noted during this procedure. | | | A female unified communications architect was present in the procedure room during the | | | entire procedure. | | + + + + + + + + | Performing | Address | City/State/Zipcode | Phone Number | | Organization | | | | + + + + + | [facility] | [address] | [place], [place] | | | [place]INT OF CARE | [address] | [address] | | | TESTS | | | | + + + + + | [facility] | [address] | [place], [place] | | | TESTS | [address] | [address] | | + + + + + MS CYSTOSCOPY,REMV CALCULUS,SIMPLE (07/30/2007) + + + | Narrative | Performed At | + + + | CYSTOSCOPY FEMALE: Performed to remove ureteral stent The | [facility] | | patient was verbally informed of the cystoscopy procedure and a | CARE [facility] | | signed consent was obtained. The patient was placed in the | | | supine position and her abdomen was prepped with Hibiclens. The | | | opening of her continent cutaneous diversion was serially dilated to | | | 18 Fr using amplatz dilators. She tolerated this procedure well. Then | | | a well lubricated flexible Olympus cystoscope was introduced gently | | | through the continent cutaneous diversion. There was a small amount | | | of mucus in the pouch. The ureteral stent was visualized and removed | | | in its entirety. There was no bleeding noted during this procedure. | | | The procedure was tolerated well. A female unified communications architect was present | | | in the procedure room during the entire procedure. | | + + + + + + + + | Performing | Address | City/State/Zipcode | Phone Number | | Organization | | | | + + + + + | [facility] | [address] | [place], [place] | | | [place] [place]INT OF CARE | [address] | [address] | | | TESTS | | | | + + + + + | [facility] | [address] | [place], [place] | | | TESTS | [address] | [address] | | + + + + + UA DIPSTICK ONLY, POC (07/30/2007) + + + + + + | Component | Value | Ref Range | Performed | Pathologist | | | | | At | Signature | + + + + + + | COLOR(UR) | yellow | | [facility] | | | | | | OF CARE | | | | | | TESTS | | + + + + + + | APPEARANCE | mod. cloudy | | [facility] | | | | | | OF CARE | | | | | | TESTS | | + + + + + + | LEUKOCYTE | large | Negative | [facility] | | | ESTERASE | | | OF CARE | | | | | | TESTS | | + + + + + + | NITRITES | neg | Negative | [facility] | | | | | | OF CARE | | | | | | TESTS | | + + + + + + | UROBILINOGE | norm | 0.2 - 1 ARIS | [facility] | | | N | | UNITS | OF CARE | | | | | | TESTS | | + + + + + + | PROTEIN(LAB | 300 | mg/dL | [facility] | | | ) | | | OF CARE | | | | | | TESTS | | + + + + + + | PH(UR) | 7.0 | 5 - 8.5 | [facility] | | | | | | OF CARE | | | | | | TESTS | | + + + + + + | BLOOD | 3+ | Negative | [facility] | | | | | | OF CARE | | | | | | TESTS | | + + + + + + | SPECIFIC | 1.015 | 1.004 - 1.03 | [facility] | | | GRAVITY | | | OF CARE | | | | | | TESTS | | + + + + + + | KETONES | neg | Negative mg/dL | [facility] | | | | | | OF CARE | | | | | | TESTS | | + + + + + + | BILIRUBIN | neg | Negative | [facility] | | | | | | OF CARE | | | | | | TESTS | | + + + + + + | GLUCOSE(UR) | neg | Negative mg/dL | [facility] | | | | | | OF CARE | | | | | | TESTS | | + + + + + + + + | Specimen | + + | Urine | + + + + + + + | Performing | Address | City/State/Zipcode | Phone Number | | Organization | | | | + + + + + | [facility] | [address] | [place], [place] | | | [facility] POINT OF CARE | [address] | [address] | | | TESTS | | | | + + + + + | [facility] | [address] | [place], [place] | | | TESTS | [facility] | [address] | | + + + + + documented in this encounter Visit Diagnoses + + | Diagnosis | + + | Hydronephrosis - Primary | + + documented in this encounter
--- OUTSIDE RECORDS SUMMARY | ~2019-11-08 | XMS | Encounter Summary ---
Demographics + + + | Address | [address] | | | [place] [address] | + + + | Home Phone [...] Author + + + | Author | [facility] | + + + | Organization | [facility] | + + + | Address | Unknown | + + + | Phone | Unavailable | + + + Support + + + + + | Name | Relationship | Address | Phone | + + + + + | Darius Fields | HELEN | [address] | | | | | [place] [address] | | + + + + + Care Team Providers + +------+ + | Care Tire Service Supervisor Name | Role | Phone | [...] Description | +--------+--------+ + + + | 02/08/ | Refill | Urology Adult | Kristie, | Refill Request | | 2007 | | [address] | MD Reinaldo | | | | | Mailcode: CH10U | | | | | | [facility] | | | | | | and [place], | | | | | | Building | | | | | | [place], [place] | | | | | | [address] | | | | | | [phone] | | | +--------+--------+ + + + [...]
--- OUTSIDE RECORDS SUMMARY | ~2019-11-08 | XMS | Encounter Summary ---
Demographics + + + | Address | [address] | | | [place] [address] | + + + | Home Phone | | + + + | Preferred Language | Unknown | + + + | Marital Status | Single | + + + | Gnosticist Affiliation | CHR | + + + [...] | | | | | [place] [address] | | + + + + + Care Team Providers + +------+ + | Care Accounts Receivable Executive Name | Role | Phone | + +------+ + | Serena Barroso | PCP | | + +------+ + Reason for Visit + + + | Reason | Comments | + + + | Refill Encounters | Catheters | + + + Encounter Details +--------+ + + + + | Date | Type | Department | Care Team | Description | +--------+ + + + + | 02/16/ | Telephone | Urology Oncology | Kristie, | Refill Encounters | | 2009 | | [address] | MD Reinaldo | ([facility] ) | | | | Mailcode: CH10U | | | | | | [facility] | | | | | | and Healing, | | | | | | Building | | | | | | Floor [place], [place] | | | | | | [address] | | | | | | [phone] | | | +--------+ + + + [...]
--- OUTSIDE RECORDS SUMMARY | ~2019-11-08 | XMS | Encounter Summary ---
Demographics + + + | Address | [address] | | | [place] [address] | + + + | Home Phone [...] | | | | | [place] [address] | | + + + + + Care Team Providers + +------+ + | Care Modular Set Crew Member Name | Role | Phone | + +------+ + | Rona Lyons MD | PCP | | + +------+ + Encounter Details +--------+ + + + + | Date | Type | Department | Care Team | Description | +--------+ + + + + | 06/10/ | Results | Urology Oncology | Kristie, | | | 2006 | Only | [address] | MD Reinaldo | | | | | Mailcode: CH10U | | | | | | [facility] | | | | | | and Healing, | | | | | | Building | | | | | | Floor [place], [place] | | | | | | [address] | | | | | | [phone] | | | +--------+ + + + [...] PRIMARY | | | | | | FIRE CAPTAIN: Go | | | | | | Dina Hansen MACHINE FARMWORKER | | | | | | FIRE CAPTAIN: Darrian Chung | | | | | | Dina Carter ATTENDING | | | | | | FIRE CAPTAIN: Darrian Chung | | | | | [...] PRIMARY | | | | | | FIRE CAPTAIN: Yehuda Duran | | | | | [...] a | | | | | | 9-Vietnamese peel-awaysheath | | | | | | which was advanced into | | | | | | the renal pelvis. A | | | | | | 28 cm long,8-Vietnamese | | | | | | double-J [...] a | | | | | | 10.5-Vietnamese multipurpose | | | | | | [...] | | + +---------+ + + | [facility] DEPARTMENT OF | | | | | RADIOLOGY | | | | + +---------+ + + documented in this encounter Visit Diagnoses Not on filedocumented in this encounter"
--- OUTSIDE RECORDS SUMMARY | ~2019-11-08 | XMS | Encounter Summary ---
Demographics + + + | Address | [address] | | | [place] [address] | + + + | Home Phone [...] Organization | [facility] [place] | | | and [...] #3 | | | | | , [address] | | + + + + + Care Team Providers + +------+ + | Care Social And Political Studies Professor Name | Role | Phone | + +------+ + PCP | Unavailable | + +------+ + Encounter Details +--------+ + + + + | Date | Type | Department | Care Team | Description | +--------+ + + + + | 06/27/ | Hospital | [facility] GENERIC OP | Rona Lyons | | | 2004 - | Encounter | CONVERSION [address] | MD [place] [address] | | | | | [address] | [facility] | | | 07/26/ | | [place], [place] | [place] [address] | | | 2004 | | [address] | [phone] | | | | | [phone] | | | +--------+ + + + [...] | 12/02/ | Office | Gastroenterology | [facility], | | | 2019 | Visit | | CRISTHIAN Carbone [address] | | | | | | [address] | | | | | | [place] | | | | | | [address] | | | | | | | | +--------+---------+ + + + documented as of this encounter Visit Diagnoses Not on filedocumented in this encounter"
--- OUTSIDE RECORDS SUMMARY | ~2019-11-08 | XMS | Encounter Summary ---
Demographics + + + | Address | [address] | | | [place] [address] | + + + | Home Phone | | + + + | Preferred Language | Unknown | + + + | Marital Status | | + + + | Samaritan Affiliation | Unknown | + + + | Race | Unknown | + + + | Ethnic Group | Unknown | + + + Author + + + | Author | [facility] [place] | | | and [place] | + + + | Organization | [facility] [place] | | | and [place] | + + + | Address | Unknown | + + + | Phone | Unavailable | + + + Support + + + + + | Name | Relationship | Address | Phone | + + + + + | Darius Diamond [place] | [address] | | | | | , [address] | | + + + + + Care Team Providers + +------+ + | Care Fisher Troll Line Name | Role | Phone | [...] [address] | | | | | [phone] | [place] [address] | | +--------+ + + + + [...] [address] | | | | | | [place] | | | | | | [address] | | | | | | | | +--------+---------+ + + + documented as of this encounter Procedures + +--------+ + + + | Procedure Name | Priori | Date/Time | Associated Diagnosis | Comments | | | ty | | | | + +--------+ + + + | US RENAL COMPLETE | Routin | 12/15/2017 | | Results for this | | | e | 8:40 AM | | procedure are in the | | | | PST | | results section. | + +--------+ + + + documented in this encounter Results US Renal Complete (12/15/2017 8:40 AM PST) + + | Specimen | + + | | + + + + + | Narrative | Performed At | + + + | External films for comparison only - no result from [place]. | [facility] | + + + + +---------+ + + | Performing | Address | City/State/Zipcode | Phone Number | | Organization | | | | + +---------+ + + | [facility] | | | | + +---------+ + + documented in this encounter Visit Diagnoses Not on filedocumented in this encounter"
--- OUTSIDE RECORDS SUMMARY | ~2019-11-08 | XMS | Encounter Summary ---
Demographics + + + | Address | [address] | | | [place] [address] | + + + | Home Phone | | + + + | Preferred Language | Unknown | + + + | Marital Status | Single | + + + | Synagogue Affiliation | CHR | + + + [...] | | | | | [place] [address] | | + + + + + Care Team Providers + +------+ + | Care Media Job Titles Name | Role | Phone | + [...] | | reservation | | | | [facility] | | scheduled into the | | | | and Healing, | | IRU tomarrow | | | | Building [address] | | 06/10/07) | | | | Floor [place], [place] | | | | | | [address] | | | | | | [phone] | | | +--------+ + + + [...]
--- OUTSIDE RECORDS SUMMARY | ~2019-11-08 | XMS | Encounter Summary ---
Demographics + + + | Address | [address] | | | [place] [address] | + + + | Home Phone | | + + + | Preferred Language | Unknown | + + + | Marital Status | Single | + + + | Islam Affiliation | CHR | + + + | Race | White | + + + | Ethnic Group | Not or | + + + Author + + + | Author | [facility] | + + + | Organization | [facility] | + + + | Address | Unknown | + + + | Phone | Unavailable | + + + Support + + + + + | Name | Relationship | Address | Phone | + + + + + | Darius Fields | HELEN | [address] | | | | | [place] [address] | | + + + + + Care Team Providers + +------+ + | Care Senior Software Engineer Name | Role | Phone | [...] | | | Mailcode: CH10U | Road [place], [place] | | | | | [facility] | [address] | | | | | and [place], | | | | | | Building | | | | | | [place], [place] | | | | | | [address] | | | | | | [phone] | | | +--------+ + + + [...]
--- OUTSIDE RECORDS SUMMARY | ~2019-11-08 | XMS | Encounter Summary ---
Demographics + + + | Address | [address] | | | [place] [address] | + + + | Home Phone [...] | | | | | [place] [address] | | + + + + + Care Team Providers + +------+ + | Care Flying Teacher Name | Role | Phone | + [...] [id number] | | | | | | [place], [place] | | | | | | [address] | | | | | | [phone] | | | +--------+ + + + [...]
--- OUTSIDE RECORDS SUMMARY | ~2019-11-08 | XMS | Encounter Summary ---
Demographics + + + | Address | [address] | | | [place] [address] | + + + | Home Phone | | + + + | Preferred Language | Unknown | + + + | Marital Status | | + + + | Quaker Affiliation | Unknown | + + + | Race | Unknown | + + + | Ethnic Group | Unknown | + + + Author + + + | Author | [facility] [place] | | | and [place] | + + + | Organization | [facility] [place] | | | and [place] | + + + | Address | Unknown | + + + | Phone | Unavailable | + + + Support + + + + + | Name | Relationship | Address | Phone | + + + + + | Darius Diamond | ECON | [address] | | | | | , [address] | | + + + + + Care Team Providers + +------+ + | Care Counterintelligence Specialist Name | Role | Phone | + +------+ + PCP | Unavailable | + +------+ + Encounter Details +--------+ + + + + | Date | Type | Department | Care Team | Description | +--------+ + + + + | 11/27/ | Hospital | [facility] | Jenny | | | 2007 | Encounter | MED CTR EMERGENCY | Sinan [place] MD [address] | | | | | [place] [address] | [place] | | | | | [place], [place] | [place] [address] | | | | | [address] | [phone] | | | | | [phone] | | | +--------+ + + + [...] | 12/02/ | Office | Gastroenterology | [facility], | | | 2019 | Visit | | [address]AN [address]bone [address] | | | | | | [address] | | | | | | [place] | | | | | | [address] | | | | | | | | +--------+---------+ + + + documented as of this encounter Visit Diagnoses Not on filedocumented in this encounter"
--- OUTSIDE RECORDS SUMMARY | ~2019-11-08 | XMS | Encounter Summary ---
Demographics + + + | Address | [address] | | | [place] [address] | + + + | Home Phone [...] | | | | | [place] [address] | | + + + + + Care Team Providers + +------+ + | Care Plastic Parts Designer Name | Role | Phone | + +------+ + PCP | Unavailable | + +------+ + Encounter Details +--------+ + + + + | Date | Type | Department | Care Team | Description | +--------+ + + + + | 11/04/ | Procedure - | | Record, Operation | Operative Report | | 2006 | | | | | | | Transcribed | | | | +--------+ + + [...] | + +--------+ + + + | OPERATION RECORD | | 11/04/2005 | | Results for this | | | | | | procedure are in the | | | | | | results section. | + +--------+ + + + documented in this encounter Results OPERATION RECORD (11/04/2005) + + | Transcriptions | + + | Interface, Technical Service Engineer In - 11/19/2005 2:06 AM PST | | [id number] | | [id number] NOEMY Smith | | | | Date: 11/04/2005 | | | | Attending Surgeon: Reinaldo Flowers M.D. | | | | Hide Mill Worker(s): Santiago Cooley M.D. | | Braden Salazar M.D. | | | | Preoperative Diagnosis(es): | | 1. 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 | | 2. Stomal incontinence with difficulty catheterizing. | | | | Postoperative Diagnosis(es): | | 1. 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 | | 2. Stomal incontinence with difficulty catheterizing. | | | | Procedures Performed: | | 1. Extensive lysis of adhesions. | | 2. Revision of Kock pouch (takedown of efferent limb and construction of | | continent cutaneous channel via a Loc subserosal tunneled | | fran-appendix). | | 3. Repair of enterotomy x2. | | | | Anesthesia: | | General endotracheal tube with epidural. | | | | Fluids: | | Crystalloids 8 L, colloid 1 L. | | | | Estimated Blood Loss: | | 500 cc. | | | | Complications: | | | | Specimens: | | The efferent limb of Kock pouch. | | | | Indications: | | Ms. Zaragoza is a 40-year-old woman with a history of bladder exstrophy who | | initially had ileal conduits. This was later converted to a Kock pouch in | | [address] Desmond Ley. She has had multiple urinary tract infections | | that are controlled with antibiotic suppression, and approximately 8 or 9 | | months ago, she underwent an endoscopic removal of some pouch stones, and 3 | | months after that, she started developing some stomal incontinence and then | | difficulty catheterizing requiring cystoscopy for catheter placements. She | | desires another continent type of diversion. | | | | Procedure: | | The patient was brought to the operating suite after an epidural catheter | | had been placed. Under satisfactory general anesthesia, she was prepped | | and draped in usual sterile fashion. We removed her 16-Romanian catheter and | | placed a new 16-Romanian Humphrey catheter and left at the gravity drainage. | | She had a multitude of dense scars on her upper and lower abdomen. We went | | through the midline and incised the skin and subcutaneous tissues with the | | Bovie electrocautery. We decided to enter the abdomen through the upper | | the part of the incision; however, just underneath the skin, we encountered | | some bowel, and we had an enterotomy in this area. We were able to dissect | | this away from the incision and delineate the piece of the intestine which | | was the transverse colon. This was tacked for later repair. She had | | extensive adhesions to the anterior abdominal wall from her multiple prior | | surgeries. These were all taken down sharply. The incision was carried | | down all the way down to the lower part of the abdomen and pelvis. We then | | spent the next 3-1/2 hours doing an extensive lysis of adhesions in order | | to delineate the bowel as well as the pouch. This was necessary in order | | to delineate the anatomy and safely separate the continent reservoir away | | from the iroquois bowel. Upon doing so, we had one enterotomy from a small | | piece of distal ileum that was tenaciously deep in the pelvis. This was | | repaired with a 2-layer 3-0 silk suture. First layer was a | | nryzkh-nj-mqhzsl closure, and the second layer was interrupted imbricating | | sutures. We then repaired enterotomy in the transverse colon. Again, this | | was done using interrupted silks re-approximating the mucosa and serosa | | together and then using a second layer of imbricating sutures. There was | | several small serosal tears which were reapproximated using 3-0 silk | | sutures. | | | | After she was given adequate fluids and we clamped the Humphrey catheter, her | | continent reservoir filled up with approximately 350 cc of urine. We were | | able to delineate this away from the bowel and realized that she had a | | colon reservoir with an ileocolic anastomosis. The appendix was not | | present, and clearly, part of this cecum had been used for the continent | | reservoir. At this point, we took down the efferent limb off the anterior | | abdominal wall and carried this down and took off the fascia with | | attachments and brought the stoma into the abdomen. The mesentery | | supplying this piece was well preserved. Rather than taking another | | segment of bowel for the continence mechanism, we decided to use the mid | | portion of this efferent limb to create a Loc tube fran-appendix. This | | was both done by taking a 3-cm segment of the mid efferent limb of ileum | | with its associated mesentery, opening it on the anti-mesenteric border | | turning it 90 degrees and sewing it back on itself over a 16-Romanian | | catheter using a 2-layered continuous 3-0 Vicryl suture. The proximal end | | (going to the reservoir) was closed using a 2-layered 3-0 Vicryl suture. | | The distal piece (which included the stomal end) was discarded, and the | | mesentery to the piece was tied with 2-0 silk. We then created a | | subserosal tunnel in the reservoir by injecting some saline along the tinea | | in the subserosal layer. This was found to separate the mucosa from the | | serosa. We next used a #15 blade to open the serosa right along the tinea, | | and we developed a subserosal tunnel using a combination of sharp and blunt | | dissection. Once we had an adequate flap developed on both sides, we then | | made a hole in the mucosa and inserted the 16-Romanian red Wilder catheter | | through this area. We then sewed the base of the fran-appendix to the apex | | of the incision along the reservoir and secured the fran-appendix using | | interrupted 3-0 Vicryl sutures incorporating old seromuscular bites on both | | sides. We then laid a fran-appendix along the tenia and closed the | | subserosal tunnel using interrupted 3-0 silk sutures. This provided an | | adequate tunnel for the continent mechanism. We then chose an appropriate | | location for the stoma and made a circumferential incision in the skin | | along the dimple of the previous scar. This was taken down to the fascia | | and dilated. We brought the fran-appendix through this incision, spatulated | | it, and sewed this to the skin using interrupted 3-0 and 4-0 Vicryl. We | | then took out the 18-Romanian red Wilder catheter after filling up the | | reservoir again with at least 300 cc of saline and verified that she had | | perfect continence. Even upon pushing on the pouch, there was absolutely | | no leakage of fluid from the stoma. We then easily passed 16-Romanian Humphrey | | catheter into the pouch and inflated with 15 cc of sterile water. We next | | inserted a 22-Romanian tube directly into the reservoir and placed a | | pursestring suture to secure the catheter. Both these Foleys were secured | | to the skin using a 3-0 nylon suture. We next irrigated the abdomen with | | copious amounts of water. We laid some Gelfoam deep down the pelvis where | | there was some minimal oozing and carefully layered the bowel back into | | normal anatomic position. Prior to this, we laid some separate film down | | in the pelvis to prevent further adhesions in this area, and we placed | | another separate film on top of the bowel to try to minimize the adhesions | | to the anterior abdominal wall. The abdomen was then closed using two #1 | | Maxon sutures in a running fashion with the knot being tight in the middle | | of the wound. The previous ostomy site was also closed using interrupted | | #1 Vicryl sutures, and the subcutaneous tissues were brought together using | | continuous 3-0 Vicryl suture, and the skin incisions were closed using | | china. The patient tolerated the procedure extremely well. Two sponge | | and lab counts were reported as being correct. She was taken to the | | recovery room extubated in an excellent condition. | | | | | | Addendum: is a Modifier-22 Statement. | | | | This case was made particularly difficult because of her 4 previous | | abdominal operations and urinary reconstructions. There were extensive | | adhesions in the upper abdomen as well as the pelvis requiring an extensive | | lysis of adhesions which lasted approximately 3-1/2 hours. The revision of | | her continence mechanism was also made difficult by numerous prior | | operations in the same area. | | | | | | | | Reinaldo Flowers M.D. | | Bar Catcher | | Section of Urologic Oncology | | Division of Urology Renal Transplantation | | [facility] | | | | | | [place] / HS | | [id number] / [id number] / [id number] / | | [id number] / [id number] / [id number] / [id number] | | | | | | A: 11/07/2005 [place] | | C | | c: | | | | | | Rona Lyons M.D. | | [address] | | [place] [address] | | | | | | Electronically signed by Reinaldo Flowers 11-16-2005 04:15:42 PM | + + documented in this encounter Visit Diagnoses Not on filedocumented in this encounter"
--- OUTSIDE RECORDS SUMMARY | ~2019-11-08 | XMS | Encounter Summary ---
Demographics + + + | Address | [address] | | | [place] [address] | + + + | Home Phone [...] | | | | | [place] [address] | | + + + + + Care Team Providers + +------+ + | Care Plan Consultant Name | Role | Phone | + +------+ + | Serena Barroso | PCP | | + +------+ + Encounter Details +--------+ + + + + | Date | Type | Department | Care Team | Description | +--------+ + + + + | 08/13/ | Ancillary | Registration [id number] | Kristie, | | | 2004 | Registratio | [address] | MD Reinaldo | | | | marquis | Monster Mailcode: [id number] | | | | | | [place], [place] | | | | | | [address] | | | | | | [phone] | | | +--------+ + + + [...]
--- OUTSIDE RECORDS SUMMARY | ~2019-11-08 | XMS | Encounter Summary ---
Demographics + + + | Address | [address] | | | [place] [address] | + + + | Home Phone [...] + + + | Author | [facility] | + + + | Organization | [facility] | + + + | Address | Unknown | + + + | Phone | Unavailable | + + + Support + + + + + | Name | Relationship | Address | Phone | + + + + + | Darius Fields | HELEN | [address] | | | | | [place] [address] | | + + + + + Care Team Providers + +------+ + | Care Trade Recruiter Name | Role | Phone | + +------+ + | Serena Barroso | PCP | | + +------+ + Encounter Details +--------+ + + + + | Date | Type | Department | Care Team | Description | +--------+ + + + + | 06/09/ | Orders Only | Urology Oncology | Kristie, | Hydronephrosis; | | 2006 | | [address] | MD Reinaldo | Hematuria | | | | Mailcode: [id number] | | | | | | [facility] | | | | | | and Healing, | | | | | | Building | | | | | | Floor [place], [place] | | | | | | [address] | | | | | | [phone] | | | +--------+ + + + [...] | | + +------+--------+ + + | [facility] - SPECIMEN | Lab | Routin | Hydronephrosis | Ordered: 06/09/2007 | | COLLECT, | | e | | | | VENIPUNCTURE | | | | | + +------+--------+ + + documented as of this encounter Procedures + +--------+ + + + | Procedure Name | Priori | Date/Time | Associated Diagnosis | Comments | | | ty | | | | + +--------+ + + + | [facility] - COMPLETE | Routin | 06/09/2007 | Hydronephrosis | Results for this | | METABOLIC SET | e | 2:28 PM | | procedure are in the | | | | PDT | | results section. | + +--------+ + + + | [facility] CBC W | Routin | 06/09/2007 | Hydronephrosis | Results for this | | DIFFERENTIAL | e | 2:28 PM | | procedure are in the | | | | PDT | | results section. | + +--------+ + + + | [facility] - INR | Routin | 06/09/2007 | Hydronephrosis | Results for this | | (PROTHROMBINTIME) | e | 2:28 PM | | procedure are in the | | | | PDT | | results section. | + +--------+ + + + documented in this encounter Results [facility] - COMPLETE METABOLIC SET (06/09/2007 2:28 PM PDT) + + + + + + | Component | Value | Ref Range | Performed | Pathologist | | | | | At | Signature | + + + + + + | [facility] | 102 (H)Comment: | 60 - 99 [...] | + + + + + | [facility] DEPARTMENT | [address] | [place] [address] | | | PATHOLOGY | [address] | | | + + + + + | [facility] | [facility] [place] [facility] | [place] [address] | | | PATHOLOGY | [address] | | | + + + + [...] | + + + + + | [facility] | [address] [facility] | [place] [address] | | | PATHOLOGY | [address] | | | + + + + + | [facility] | [address] [facility] | [place] [address] | | | PATHOLOGY | [address] | | | + + + + + [facility] - CBC AUTODIFF (06/09/2007 2:28 PM PDT) [...] | + + + + + | [facility] | [address] | [place] [address] | | | PATHOLOGY | [address] | | | + + + + + | [facility] | [address] | [place] [address] | | | PATHOLOGY | [address] | | | + + + + + documented in this encounter Visit Diagnoses + + | Diagnosis | + + | Hydronephrosis | + + | Hematuria | + + documented in this encounter"
--- OUTSIDE RECORDS SUMMARY | ~2019-11-08 | XMS | Encounter Summary ---
Demographics + + + | Address | [address] | | | [place] [address] | + + + | Home Phone [...] | | | | | [place] [address] | | + + + + + Care Team Providers + +------+ + | Care Lead Engineer Name | Role | Phone | [...] Hematuria; | | 2006 | Visit | [address] | MD Reinaldo | Hydronephrosis | | | | Mailcode: [id number] | | | | | | [facility] | | | | | | and [place], | | | | | | Building | | | | | | [place], [place] | | | | | | [address] | | | | | | [phone] | | | +--------+---------+ + + + [...] balloon dilation on 06/10/07. Lacy Flowers M.D. preparer samples and repairs Section of Urologic Oncology Division of Urology & Renal Transplantation [facility] documented in this enc ounter Plan of [...] | | + +---------+ + + | [facility] DEPARTMENT OF | | | [...] [place] | [address] | [place], [place] | | | HOOD, POINT OF CARE | [address] | [address] | | | TESTS | | | | + + + + + | [facility]-POINT OF CARE | [address] | [place], [place] | | | TESTS | [address] | [address] | | + + + + + documented in this encounter Visit Diagnoses + + | Diagnosis | + + | Hematuria | + + | Hydronephrosis | + + documented in this encounter
--- OUTSIDE RECORDS SUMMARY | ~2019-11-08 | XMS | Encounter Summary ---
Demographics + + + | Address | [address] | | | [place] [address] | + + + | Home Phone [...] + + | Organization | [facility] | | | and [place] | + + + | Address | Unknown | + + + | Phone | Unavailable | + + + Support + + + + + | Name | Relationship | Address | Phone | + + + + + | Darius Diamond CERVANTES | [address] | | | | | , [address] | | + + + + + Care Team Providers + +------+ + | Care Community Support Associate Name | Role | Phone | + [...] [address] | | | | | [phone] | [place] [address] | | +--------+ + + + + [...] Gastroenterology | [facility], | | | 2020 | Visit | | CRISTHIAN Carbone [address] | | | | | | [address] | | | | | | [place] | | | | | | [address] | | | | | | | [...]
--- OUTSIDE RECORDS SUMMARY | ~2019-11-08 | XMS | Encounter Summary ---
Demographics + + + | Address | [address] | | | [place] [address] | + + + | Home Phone | | + + + | Preferred Language | Unknown | + + + | Marital Status | | + + + | Methodist Affiliation | Unknown | + + + | Race | Unknown | + + + | Ethnic Group | Unknown | + + + Author + + + | Author | [facility] | | | and [place] | + + + | Organization | [facility] | | | and [...] #[address] | | | | | , [address] | | + + + + + Care Team Providers + +------+ + | Care Plastic Maker Name | Role | Phone | + +------+ + PCP | Unavailable | + +------+ + Encounter Details +--------+ + + + + | Date | Type | Department | Care Team | Description | +--------+ + + + + | 05/31/ | Hospital | [facility] | Rona Lyons | | | 2004 - | Encounter | [address] | [address] [address] | | | | | [address] | [facility] | | | 06/26/ | | [place], [place] | [place] [address] | | | 2004 | | [address] | [phone] | | | | | [phone] | | | +--------+ + + + [...] [place] | | | | | | [address] | | | | | | | | +--------+---------+ + + + documented as of this encounter Visit Diagnoses Not on filedocumented in this encounter"
--- OUTSIDE RECORDS SUMMARY | ~2019-11-08 | XMS | Encounter Summary ---
Demographics + + + | Address | [address] | | | [place] [address] | + + + | Home Phone | | + + + | Preferred Language | Unknown | + + + | Marital Status | Single | + + + | Quaker Affiliation | CHR | + + + | Race | White | + + + | Ethnic Group | Not or | + + + Author + + + | Author | [facility] | + + + | Organization | [facility] | + + + | Address | Unknown | + + + | Phone | Unavailable | + + + Support + + + + + | Name | Relationship | Address | Phone | + + + + + | Darius Fields | HELEN | [address] | | | | | [place] [address] | | + + + + + Care Team Providers + +------+ + | Care Pillowcase Maker Name | Role | Phone | [...] | | | | [address] | [place] [address] | (Primary Dx) | | | | Mailcode: [id number] | [phone] | | | | | [facility] | | | | | | [place], [place] | | | | | | [address] | | | | | | [phone] | | | +--------+---------+ + + + [...] hearing loss on here way up the [place] and a feeling of fullness, Au. She [...] | + + +--------+ + + | NC AUDIOMETRY, AIR & | Procedures | Routin [...]
--- OUTSIDE RECORDS SUMMARY | ~2019-11-08 | XMS | Encounter Summary ---
Demographics + + + | Address | [address] | | | [place] [address] | + + + | Home Phone [...] | | | | | [place] [address] | | + + + + + Care Team Providers + +------+ + | Care Channel Sales Manager Name | Role | Phone | + +------+ + | Rona Lyons MD | PCP | | + +------+ + Reason for Visit +--------+ + | Reason | Comments | +--------+ + | Other | Problems catheterizing stoma | +--------+ + Encounter Details +--------+ + + + + | Date | Type | Department | Care Team | Description | +--------+ + + + + | 06/26/ | Procedure | Urology General | Kristie, | Other (Problems | | 2005 | | [address] | MD Reinaldo | catheterizing stoma) | | | | Loop Mailcode: [id number] | | | | | | Physician's | | | | | | [address] | | | | | | [place], [place] | | | | | | [address] | | | | | | [phone] | | | +--------+ + + + [...] this encounter Last Filed Vital Signs + +---------+ + + | Vital Sign | Reading | Time Taken | Comments | + +---------+ + + | Blood Pressure | 110/60 | 06/26/2006 1:27 PM | | | | | PDT | | + +---------+ + + | Pulse | 80 | 06/26/2006 1:27 PM | | | | | PDT | | + +---------+ + + | Temperature | - | - | | + +---------+ + + | Respiratory Rate | - | - | | + +---------+ + + | Oxygen Saturation | - | - | | + +---------+ + + | Inhaled Oxygen | - | - | | | Concentration | | | | + +---------+ + + | Weight | - | - | | + +---------+ + + | Height | - | - | | + +---------+ + + | Body Mass Index | - | - | | + +---------+ + + documented in this encounter Progress Notes Reinaldo Flowers - 06/26/2006 3:39 PM PDTI saw the patient with Dr. Thompson. I agree with the resident's assessment and plan as documented in the note. I personally performed the sto mal dilation today. Lacy Flowers M.D. valuation manager Section of Urologic Oncology Division of Urology & Renal Transplantation [facility] Chance Morales Md - 06/26 2:16 PM PDTIDENTIFICATION: Samreen Zaragoza is a 41 year old woman with a history of [...] re was leakage from the pouch. On November 01 of this year she underwent revision of Kock po uch (takedown of efferent limb and construction of a continent cutaneous channel via a Loc subserosal tunneled fran-appendix). SUBJECTIVE: Ms. Zaragoza reports having difficulty catheterizing her Kock pouch. She states that the si te is "too tight." and she complains of burining right at the skin level. She is using a 16F Lo-Fric catheter. She is cathing every 4 hours. Occasional low-volume leakage from site (sh e changes a small 2X2 may be once or twice a day). OBJECTIVE: BP 110/60 | Pulse 80 General: Alert and oriented, appears stated age, no obvious distress Cardiovascular: Regular rate and rhythm without murmurs rubs or gallops Pulmonary: Clear to auscultation bilaterally Abdomen: Soft, mild global tenderness to palpation, nondistended, bowel sounds present. No masses. Multiple surgical scars and abdominal defect consistent with bladder extrophy and re pair. Catheter site without erythema, discharge, or granulation tissue. Extremities: Warm and well perfused. No edema. Stoma site dilated in clinic today up to 18F in sequential fashion. Stoma easily catheteriz ed. Urine clear with minimal amount of mucous. 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 Dilated in clinic today easily using catheters only to 18F. Will have patient switch to 1 4F Bancroft catheter and use lubrication PLAN: - Swtich from 16F LoFric to 14F Bancroft catheter - Advised to use lubrication - Patient to follow-up with Dr. Lyons. documented in this enc ounter Plan of Treatment Not on filedocumented as of this encounter Procedures + +--------+ + + + | Procedure Name | Priori | Date/Time | Associated Diagnosis | Comments | | | ty | | | | + +--------+ + + + | LA DIL | Routin | 06/26/2006 | Bladder Extrophy | Results for this | | URETHRA,FEMALE,INITI | e | | | procedure are in the | | AL | | | | results section. | + +--------+ + + + documented in this encounter Results LA DIL URETHRA,FEMALE,INITIAL (06/26/2006) + + + | Narrative | Performed At | + + + | Continent catheterizable stoma dilated to 18F using Bancroft | [facility] | | Catheters. | CARE TESTS | + + + + + + + + | Performing | Address | City/State/Zipcode | Phone Number | | Organization | | | | + + + + + | [facility] | [address] | [place], [place] | | | HECTOR POINT OF CARE | [address] | [address] | | | TESTS | | | | + + + + + | [facility] | [address] | [place], [place] | | | TESTS | [address] | [address] | | + + + + + documented in this encounter Visit Diagnoses + + | Diagnosis | + + | Bladder extrophy - Primary Exstrophy of urinary bladder | + + documented in this encounter
--- OUTSIDE RECORDS SUMMARY | ~2019-11-08 | XMS | Encounter Summary ---
Demographics + + + | Address | [address] | | | [place] [address] | + + + | Home Phone | | + + + | Preferred Language | Unknown | + + + | Marital Status | | + + + | Hinduism Affiliation | Unknown | + + + | Race | Unknown | + + + | Ethnic Group | Unknown | + + + Author + + + | Author | [facility] | | | and [place] | + + + | Organization | [facility] | | | and [place] | + + + | Address | Unknown | + + + | Phone | Unavailable | + + + Support + + + + + | Name | Relationship | Address | Phone | + + + + + | Darius Diamond CERVANTES | [address] | | | | | , [address] | | + + + + + Care Team Providers + +------+ + | Care Photography Manager Name | Role | Phone | + +------+ + | Francine Sanford NP | PCP | | + +------+ + Encounter Details +--------+ + + + + | Date | Type | Department | Care Team | Description | +--------+ + + + + | 01/26/ | Orders Only | [facility] | Toi Gonzalez | Right renal atrophy | | 2018 | | [address] | MD Leigh[address] | (Primary Dx); | | | | [place], [place] | [place] | Hypertension, | | | | [address] | [address] | unspecified type | | | | [phone] | | | +--------+ + + + [...] documented as of this encounter Progress Notes Amina Jaquez RN - 01/26/2018 10:51 AM PDTPatient scheduled for surgery 02/26/18 and is notified of Pre Admissions Clinic appointment following her pre op appointment here 02/13/18 . Orders for BMP, CBC and EKG entered as ordered by Dr Gonzalez. documented in this encounter Plan of Treatment +--------+---------+ + + + | Date | Type | Specialty | Care Team | Description | +--------+---------+ + + + | 12/02/ | Office | Gastroenterology | [facility], | | | 2020 | Visit | | CRISTHIAN Carbone [address] | | | | | | [address] | | | | | | [place] | | | | | | [address] | | | | | | | | +--------+---------+ + + + documented as of this encounter Results ECG 12 lead (02/13/2018 11:37 AM PDT) + + + + + + | Component | Value | Ref Range | Performed | Pathologist | | | | | At | Signature | + + + + + + | VENTRICULAR | 107 | BPM | [facility] | | | RATE EKG | | | | | + + + + + + | ATRIAL RATE | 107 | BPM | [facility] | | + + + + + + | P-R | 136 | ms | [facility] | | | INTERVAL | | | | | + + + + + + | QRS | 66 | ms | [facility] | | | DURATION | | | | | + + + + + + | Q-T | 320 | ms | [facility] | | | INTERVAL | | | | | + + + + + + | Q-T | 427 | ms | [facility] | | | INTERVAL | | | | | | (CORRECTED) | | | | | + + + + + + | P WAVE AXIS | 50 | degrees | [facility] | | + + + + + + | QRS AXIS | 5 | degrees | [facility] | | + + + + + + | T AXIS | 30 | degrees | [facility] | | + + + + + + | INTERPRETAT | Sinus tachycardia with | | [facility] | | | ION TEXT | premature atrial | | | | | | complexesOtherwise | | | | | | normal ECGNo previous | | | | | | ECGs availableConfirmed | | | | | | by REMINGTON GRANT MD | | | | | | ([id number]) on 02/14/2018 | | | | | | 8:18:57 AM | | | | + + + + + + + + | Specimen | + + | | + + + + + | Narrative | Performed At | + + + | | | + + + + +---------+ + + | Performing | Address | City/State/Zipcode | Phone Number | | Organization | | | | + +---------+ + + | [facility] | | | | + +---------+ + + Basic Metabolic Panel (02/13/2018 11:33 AM PDT) + + + + + + | Component | Value | Ref Range | Performed | Pathologist | | | | | At | Signature | + + + + + + | Na | 132 (L) | 136 - 149 | [facility] | | | | | mmol/L | [facility] | | | | | | MEDICAL | | | | | | CENTER - | | | | | | LABORATORY | | + + + + + + | K | 3.9 | 3.5 - 5.1 | [facility] | | | | | mmol/L | [facility] | | | | | | MEDICAL | | | | | | CENTER - | | | | | | LABORATORY | | + + + + + + | Cl | 102 | 98 - 109 mmol/L | [facility] | | | | | | [facility] | | | | | | MEDICAL | | | | | | CENTER - | | | | | | LABORATORY | | + + + + + + | CO2 | 24 | 24 - 31 mmol/L | [facility] | | | | | | [facility] | | | | | | MEDICAL | | | | | | CENTER - | | | | | | LABORATORY | | + + + + + + | Anion Gap | 6 | 3 - 16 mmol/L | [facility] | | | | | | [facility] | | | | | | MEDICAL | | | | | | CENTER - | | | | | | LABORATORY | | + + + + + + | Glucose | 102 | 70 - 109 mg/dL | [facility] | | | | | | [facility] | | | | | | MEDICAL | | | | | | CENTER - | | | | | | LABORATORY | | + + + + + + | BUN | 17 | 7 - 18 mg/dL | [facility] | | | | | | [facility] | | | | | | MEDICAL | | | | | | CENTER - | | | | | | LABORATORY | | + + + + + + | Creatinine | 0.81 | 0.60 - 1.30 | [facility] | | | | | mg/dL | [facility] | | | | | | MEDICAL | | | | | | CENTER - | | | | | | LABORATORY | | + + + + + + | eGFR if not | >60Comment: GLOMERULAR | >=60 | [facility] | | | | FILTRATION | mL/min/1.73m2 | [facility] | | | [place] | RATE,ESTIMATED | | MEDICAL | | | | mL/min/1.81z1Ylpq than | | CENTER - | | | | 60 Chronic kidney | | LABORATORY | | | | disease,if found over a | | | | | | 3-month period.Less than | | | | | | 15 Kidney failureFor | | | | | | | | | | | | Americans,multiply the | | | | | | calculated GFR by 1.21. | | | | | | | | | | + + + + + + | Calcium | 9.5 | 8.3 - 10.5 | [facility] | | | | | mg/dL | [facility] | | | | | | MEDICAL | | | | | | CENTER - | | | | | | LABORATORY | | + + + + + + | BUN/Creatin | 21.0 | | [facility] | | | ine Ratio | | | [facility] | | | | | | MEDICAL | | | | | | CENTER - | | | | | | LABORATORY | | + + + + + + + + | Specimen | + + | Blood | + + + + + + + | Performing | Address | City/State/Zipcode | Phone Number | | Organization | | | | + + + + + | [facility] | [address] | [place] | [phone] | | [facility] | | [address] | | | - LABORATORY | | | | + + + + + CBC w/ Auto Differential (02/13/2018 11:33 AM PDT) + + + + + + | Component | Value | Ref Range | Performed | Pathologist | | | | | At | Signature | + + + + + + | WBC | 9.6 | 4.0 - 11.0 K/uL | [facility] | | | | | | [facility] | | | | | | MEDICAL | | | | | | CENTER - | | | | | | LABORATORY | | + + + + + + | RBC | 4.70 | 3.70 - 5.20 | [facility] | | | | | M/uL | [facility] | | | | | | MEDICAL | | | | | | CENTER - | | | | | | LABORATORY | | + + + + + + | Hemoglobin | 15.2 | 11.5 - 16.0 | [facility] | | | | | g/dL | [facility] | | | | | | MEDICAL | | | | | | CENTER - | | | | | | LABORATORY | | + + + + + + | Hematocrit | 43.6 | 34.0 - 47.0 % | [facility] | | | | | | [facility] | | | | | | MEDICAL | | | | | | CENTER - | | | | | | LABORATORY | | + + + + + + | MCV | 92.7 | 83.0 - 101.0 fL | [facility] | | | | | | [facility] | | | | | | MEDICAL | | | | | | CENTER - | | | | | | LABORATORY | | + + + + + + | MCH | 32.3 | 28.0 - 35.0 pg | [facility] | | | | | | [facility] | | | | | | MEDICAL | | | | | | CENTER - | | | | | | LABORATORY | | + + + + + + | MCHC | 34.8 | 32.0 - 36.0 | [facility] | | | | | g/dL | [facility] | | | | | | MEDICAL | | | | | | CENTER - | | | | | | LABORATORY | | + + + + + + | RDW-CV | 12.8 | <15.0 % | [facility] | | | | | | [facility] | | | | | | MEDICAL | | | | | | CENTER - | | | | | | LABORATORY | | + + + + + + | Platelet | 352 | 140 - 440 K/uL | [facility] | | | Count | | | [facility] | | | | | | MEDICAL | | | | | | CENTER - | | | | | | LABORATORY | | + + + + + + | MPV | 9.6 | fL | [facility] | | | | | | [facility] | | | | | | MEDICAL | | | | | | CENTER - | | | | | | LABORATORY | | + + + + + + | % | 53.6 | 45.0 - 82.0 % | [facility] | | | Neutrophils | | | [facility] | | | | | | MEDICAL | | | | | | CENTER - | | | | | | LABORATORY | | + + + + + + | % | 30.1 | 20.0 - 45.0 % | [facility] | | | Lymphocytes | | | [facility] | | | | | | MEDICAL | | | | | | CENTER - | | | | | | LABORATORY | | + + + + + + | % Monocytes | 6.9 | 4.0 - 12.0 % | [facility] | | | | | | [facility] | | | | | | MEDICAL | | | | | | CENTER - | | | | | | LABORATORY | | + + + + + + | % | 8.2 (H) | 0.0 - 5.0 % | [facility] | | | Eosinophils | | | [facility] | | | | | | MEDICAL | | | | | | CENTER - | | | | | | LABORATORY | | + + + + + + | % Basophils | 1.2 (H) | 0.0 - 1.0 % | [facility] | | | | | | [facility] | | | | | | MEDICAL | | | | | | CENTER - | | | | | | LABORATORY | | + + + + + + | Absolute | 5.10 | 1.80 - 8.50 | [facility] | | | Neutrophils | | K/uL | [facility] | | | | | | MEDICAL | | | | | | CENTER - | | | | | | LABORATORY | | + + + + + + | Absolute | 2.90 | 0.60 - 3.20 | [facility] | | | Lymphocytes | | K/uL | [facility] | | | | | | MEDICAL | | | | | | CENTER - | | | | | | LABORATORY | | + + + + + + | Absolute | 0.70 | 0.00 - 1.00 | [facility] | | | Monocytes | | K/uL | [facility] | | | | | | MEDICAL | | | | | | CENTER - | | | | | | LABORATORY | | + + + + + + | Absolute | 0.80 (H) | 0.00 - 0.40 | [facility] | | | Eosinophils | | K/uL | [facility] | | | | | | MEDICAL | | | | | | CENTER - | | | | | | LABORATORY | | + + + + + + | Absolute | 0.10 | 0.00 - 0.10 | [facility] | | | Basophils | | K/uL | [facility] | | | | | | MEDICAL | | | | | | CENTER - | | | | | | LABORATORY | | + + + + + + + + | Specimen | + + | Blood | + + + + + + + | Performing | Address | City/State/Zipcode | Phone Number | | Organization | | | | + + + + + | [facility] | [address] | [place] | [phone] | | [facility] | | [address] | | | - LABORATORY | | | | + + + + + documented in this encounter Visit Diagnoses + + | Diagnosis | + + | Right renal atrophy - Primary Renal sclerosis, unspecified | + + | Hypertension, unspecified type | + + documented in this encounter"
--- OUTSIDE RECORDS SUMMARY | ~2019-11-08 | XMS | Encounter Summary ---
Demographics + + + | Address | [address] | | | [place] [address] | + + + | Home Phone | | + + + | Preferred Language | Unknown | + + + | Marital Status | | + + + | Pentecostal Affiliation | Unknown | + + + | Race | Unknown | + + + | Ethnic Group | Unknown | + + + Author + + + | Author | [facility] | | | and [place] | + + + | Organization | [facility] | | | and [...] #3 | | | | | , [address] | | + + + + + Care Team Providers + +------+ + | Care Data Integration Developer Name | Role | Phone | + +------+ + PCP | Unavailable | + +------+ + Encounter Details +--------+ + + + + | Date | Type | Department | Care Team | Description | +--------+ + + + + | 04/12/ | [facility] | [facility] | Evan Bolton | | | 2007 | Encounter | MED [facility] EM[facility] | MD [address] | | | | | [place] [address] | [address] [place] | | | | | [place], [place] | [place] [address] | | | | | [address] | [phone] | | | | | [phone] | | | +--------+ + + + [...] | 12/02/ | Office | Gastroenterology | [facility], | | | 2019 | Visit | | CRISTHIAN Carbone [address] | | | | | | [address] | | | | | | [place] | | | | | | [address] | | | | | | | | +--------+---------+ + + + documented as of this encounter Visit Diagnoses Not on filedocumented in this encounter"
--- OUTSIDE RECORDS SUMMARY | ~2019-11-08 | XMS | Encounter Summary ---
Demographics + + + | Address | [address] | | | [place] [address] | + + + | Home Phone [...] | | | | | [place] [address] | | + + + + + Care Team Providers + +------+ + | Care Senior Advisor Name | Role | Phone | [...] Building | | | | | | [place], [place] | | | | | | [address] | | | | | | [phone] | | | +--------+--------+ + + + [...]
--- OUTSIDE RECORDS SUMMARY | ~2019-11-08 | XMS | Encounter Summary ---
Demographics + + + | Address | [address] | | | [place] [address] | + + + | Home Phone | | + + + | Preferred Language | Unknown | + + + | Marital Status | Single | + + + | Anabaptism Affiliation | CHR | + + + [...] | | | | | [place] [address] | | + + + + + Care Team Providers + +------+ + | Care Audio Visual Collections Coordinator Name | Role | Phone | + +------+ + | Serena Barroso | PCP | | + +------+ + Reason for Visit + + + | Reason | Comments | + + + | Procedure | Loopogram | + + + PROC - Dept/Practice Procedure (Routine) +--------+--------+ + + + + | Status | Reason | Specialty | Diagnoses / | Referred By | Referred To | | | | | Procedures | Contact | Contact | +--------+--------+ + + + + | Closed | | Urology | Diagnoses | | Daneshmand, | | | | | | Daneshmand, | MD Reinaldo | | | | | hydronephros | MD Reinaldo | [address] | | | | | is | [address] | | | | | [address] | [place], [place] | | | | | | [place], [place] | [address] | | | | | | [address] | | +--------+--------+ + + + + Encounter Details +--------+---------+ + + + | Date | Type | Department | Care Team | Description | +--------+---------+ + + + | 02/03/ | Office | Urology Adult | Kristie, | Renal Insufficiency; | | 2007 | Visit | [address] | MD Reinaldo | Status of Other | | | | Mailcode: [id number] | | Artificial Opening | | | | [place] [facility] | | of Urinary Tract; | | | | and Healing, | | Bladder Extrophy | | | | Building | | | | | | Floor [place], [place] | | | | | | [address] | | | | | | [phone] | | | +--------+---------+ + + + [...] documented as of this encounter Progress Notes Reinaldo Flowers - 02/04/2008 3:34 PM PDTI saw the patient with Dr. Braden Salazar. I was p resent with the resident during the history and physical examination. I agree with the resi dent's assessment and plan as documented in the note. I was present for and actively partici pated in the cystogram performed today. Lacy Flowers M.D. building superintendent Section of Urologic Oncology Division of Urology & Renal Transplantation [facility] reanne Loving - 8 3:21 PM PDTProcedure: Catheter placement Indication: Loopogram and collection of urine for culture. Placement of 16 FR 5cc Latex cash catheter for loopogram per verbal order Dr. Flowers. Dr. Flowers was present in clinic during placement of catheter. The patient was identified, all supplies were ready. The patient's stoma was prepped with Betadine, and a [id number] FR Latex cash catheter was inserted into the stoma. There was no return of urine. I attempted to irrigate the catheter with 40 mL normal saline without suc cess. Catheter was removed. A 14 FR sterile Latex catheter was then inserted after reprepp ing with betadine. This catheter also did not return urine. The patient felt that maybe a change in position would help, so she sat up on the procedure table, rather than lying down. Another 16 FR catheter was then tried after again reprepping the site with betadine. The patient felt that she may have better success getting the catheter in since she is used to d oing it at home. She was given exam gloves, and she was then able to advance the 16 FR cath eter through the stoma to a point where urine returned freely. Urine sample was gathered fo r culture, and the catheter balloon was filled with 10 mL of sterile water. The catheter wa s then attached to tubing from the Cystografin bottle. At the conclusion of the loopogram procedure, the balloon was deflated of 10 mL water, and the catheter was removed. Braden Wren - 02/04/2008 3 :08 PM PDT UROLOGIC ONCOLOGY CLINIC- FOLLOW-UP Identification: [...] Stent removed ast last appointment Jul 2007. Subjective: She continues to cath at home with minimal difficulty. She has been treated for UTIs by ou [facility] providers. She describes right "kidney pain" which is intermittent. ROS: Denies bone pain, chest pain, shortness of breath, weight loss, fatigue, or significan t pain. Current outpatient medications Medication Sig Catheter 14 Fr-16" Misc.(Non-Drug; Combo Route) Misc [place] BRAND or [place] ONLY Please - Use as directed MACROBID OR take two tablets daily every [...] None Entered ADVAIR DISKUS IN None Entered LUBRICANTS TOPICAL [place] Jelly- Use as directed Component 02/04/2008 GLUCOSE-[facility] 98 UREA NITROGEN-[facility] 14 CREATININE-[facility] 0.9 SODIUM-[facility] 141 POTASSIUM-[facility]H 4.7 CHLORIDE-[facility] 105 (H) CO2 TOTAL-[facility] 26 CALCIUM-[facility] 9.2 Physical Examination Tc 100 Gen: appears well, in NAD Abdomen: soft, NT/ND, mutliple surgical scars. Catheter in place in pouch. Extr: No edema Neuro: Non-focal. PROCEDURE: Pouchogram today revealed good capacity pouch at 650cc and free reflux on the right. See s eparate note. 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 Plan: We assured her there is little we can do for her right renal pain. There is no evidence of obstruction on today's pouchogram. There is 20% function of that kidney on last MAG-3. A right nephrectomy may not alleviate her pain. She agreed to continue conservative therapy a t this point. We will check labs today. We will see her back in 6 months with repeat labs and pouchogram. Patient seen with Dr. Flowers. Braden Salazar MD. UROLOGY ADULT [address] [facility] [address] [place] [address] alachellemichel Reinaldo - 0 02/04/2008 2:52 PM PDT d ocumented in this encounter Plan of Treatment Not on filedocumented as of this encounter Procedures + +--------+ + + + | Procedure Name | Priori | Date/Time | Associated Diagnosis | Comments | | | ty | | | | + +--------+ + + + | CULTURE, URINE BACTI | Routin | 02/04/2008 | Renal | Results for this | | | e | 2:46 PM | Insufficiency | procedure are in the | | | | PDT | Status of Other | results section. | | | | | Artificial Opening | | | | | | of Urinary Tract | | | | | | Bladder Extrophy | | + +--------+ + + + | IN CYSTOGRAPHY, | Routin | 02/04/2008 | Renal | Results for this | | GLOBAL | e | | Insufficiency | procedure are in the | | | | | | results section. | + +--------+ + + + | IN INSERT,TEMP | Routin | 02/04/2008 | Bladder Extrophy | | | INDWELLING BLAD | e | | | | | FRANKIESIMPLE | | | | | + +--------+ + + + | IN INJECTION FOR | Routin | 02/04/2008 | Renal | [...] | + + + + + | [facility] DEPARTMENT OF | [address] | [place] [address] | | | PATHOLOGY | [address] | | | + + + + + | [facility] DEPARTMENT OF | [address] [facility] [address] | [place] [address] | | | PATHOLOGY | [address] | | | + + + + + [facility] - BASIC METABOLIC SET (02/04/2008 3:05 [...] DEPARTMENT OF | [address] | [place] [address] | | | PATHOLOGY | [address] | | | + + + + + | [facility][1] | [address] | [place] [address] | | | PATHOLOGY | [address] | | | + + + + + CULTURE, URINE BACTI (02/04/2008 2:46 PM PDT) + + + + + + | Component | Value | Ref Range | Performed | Pathologist | | | | | At | Signature | + + + + + + | SOURCE BODY | Catheterized Urine | | | | | SITE | | | | | + + + + + + | CULTURE | Urine Culture | | | | | RESULT | | | | | | | Source...............: | | | | | | Catheterized Urine | | | | | | Culture: > | | | | | | 100,000 col/ml | | | | | | Vee albicans | | | | | | Final | | | | | | ID Final Report | | | | | | Resulted: 02/07/08 | | | | | | [facility] ([facility] | | | | | | Way Lab) | | | | | | [facility] | | | | | | [address] | | | | [address] | | | | | | [place], [place] | | | | | | [id number]: Test | | | | | | performed at [place] | | | | | | [facility] | | | | | | Laboratory. | | | | + + + + + + + + | Specimen | + + | Urine - Catheterized | + + + + + + + | Performing | Address | City/State/Zipcode | Phone Number | | Organization | | | | + + + + + | [facility] | [address] | [place] [address] | | | LAB-MICRO | | | | + + + + + IN INJECTION FOR BLADDER X-RAY (02/04/2008) + + + | Narrative | Performed At | + + + | See procedure note- images saved and documented in progress note. | | + + + IN CYSTOGRAPHY, GLOBAL (02/04/2008) + + + | Narrative | Performed At | + + + | s/p continent cutaneous diversion. A filling cystogram performed | | | to evaluate pouch and upper urinary tract. Instilled 650 cc of | | | Cystograffin (300cc contrast with 350 cc saline) into her pouch via | | | cutaneous catheter. Reflux was seen on the right. There is stable | | | hydronephrosis on the right. There is no evidence of obstruction. | | | Patient tolerated the procedure well. Procedure performed | | | with Dr. Flowers. Braden Salazar MD Division of Urology & Renal | | | Transplantation [facility] | | + + + documented in this encounter Visit Diagnoses + + | Diagnosis | + + | Renal insufficiency Unspecified disorder of kidney and ureter | + + | Status of other artificial opening of urinary tract | + + | Bladder extrophy Exstrophy of urinary bladder | + + documented in this encounter
--- OUTSIDE RECORDS SUMMARY | ~2019-11-08 | XMS | Encounter Summary ---
Demographics + + + | Address | [address] | | | [place] [address] | + + + | Home Phone | | + + + | Preferred Language | Unknown | + + + | Marital Status | Single | + + + | Holiness Affiliation | CHR | + + + [...] | | | | | [place] [address] | | + + + + + Care Team Providers + +------+ + | Care Key Account Representative Name | Role | Phone | [...] | Transcriptions | + + | Interface, Gis Analyst In - 11/19/2005 2:06 AM PST | | [id number] | | [id number] NOEYM Smith | | | | Date: 11/04/2005 | | | | Attending Surgeon: Reinaldo Flowers M.D. | | | | Wardrobe Stylist(s): Santiago Cooley M.D. | | Braden Salazar [...] in usual sterile fashion. We removed her 16-Andorran catheter and | | placed a new 16-Andorran Humphrey catheter and left at the gravity [...] continent reservoir away | | from the [place] bowel. Upon doing so, we had one enterotomy from a small | | piece of distal ileum that was tenaciously deep in the pelvis. This was | | repaired with a 2-layer 3-0 silk suture. First layer was a | | [id number]-[id number]-clgbdi closure, and the second layer was interrupted [...] sewing it back on itself over a 16-Andorran | | catheter using a 2-layered continuous [...] hole in the mucosa and inserted the 16-Andorran red Wilder catheter | | through this [...] We | | then took out the 18-Andorran red Wilder catheter after filling up the | | reservoir again with at least 300 cc of saline and verified that she had | | perfect continence. Even upon pushing on the pouch, there was absolutely | | no leakage of fluid from the stoma. We then easily passed 16-Andorran Humphrey | | catheter into the pouch and inflated with 15 cc of sterile water. We next | | inserted a 22-Andorran tube directly into the reservoir and placed [...] | | Reinaldo Flowers M.D. | | Orchestra Leader | | Section of Urologic Oncology | | Division of Urology Renal Transplantation | | [facility] | | | | | | SD / HS | | [id number] / [id number] / [id number] / | | [id number] / [id number] / [id number] / [id number] | | | | | | A: 11/07/2005 alta | | C | | c: | | | | | | Rona Lyons M.D. | | [address] | | [place] [address] | | | | | | Electronically signed by Reinaldo Flowers 11-16-2005 04:15:42 PM | + + documented in this encounter Visit Diagnoses Not on filedocumented in this encounter"
--- OUTSIDE RECORDS SUMMARY | ~2019-11-08 | XMS | Encounter Summary ---
Demographics + + + | Address | [address] | | | [place] [address] | + + + | Home Phone [...] Author + + + | Author | [facility] | + + + | Organization | [facility] | + + + | Address | Unknown | + + + | Phone | Unavailable | + + + Support + + + + + | Name | Relationship | Address | Phone | + + + + + | Darius Fields | HELEN | [address] | | | | | [place] [address] | | + + + + + Care Team Providers + +------+ + | Care Warehouse Assembly Worker Name | Role | Phone | [...] CH10U | | | | | | [facility] | | | | | | and Healing, | | | | | | Building | | | | | | Floor [place], [place] | | | | | | [address] | | | | | | [phone] | | | +--------+ + + + [...]
--- OUTSIDE RECORDS SUMMARY | ~2019-11-08 | XMS | Encounter Summary ---
Demographics + + + | Address | [address] | | | [place] [address] | + + + | Home Phone | | + + + | Preferred Language | Unknown | + + + | Marital Status | | + + + | Denominational Affiliation | Unknown | + + + | Race | Unknown | + + + | Ethnic Group | Unknown | + + + Author + + + | Author | [facility] | | | and [place] | + + + | Organization | [facility] | | | and [place] | + + + | Address | Unknown | + + + | Phone | Unavailable | + + + Support + + + + + | Name | Relationship | Address | Phone | + + + + + | Darius Fields | HELEN | [address] | | | | | , [address] | | + + + + + Care Team Providers + +------+ + | Care Hot Cell Technician Name | Role | Phone | + +------+ + | Francine Sanford NP | PCP | | + +------+ + Reason for Visit +---------+ + | Reason | Comments | +---------+ + | Post Op | atropic kidney | +---------+ + Encounter Details +--------+---------+ + + + | Date | Type | Department | Care Team | Description | +--------+---------+ + + + | 04/27/ | Office | [facility] UROLOGY | Toi Gonzalez | Atrophic kidney | | 2018 | Visit | [address] | MD Leighann [address] | (Primary Dx); | | | | [place], [place] | [place], [place] | Staghorn calculus; | | | | [address] | [address] | Recurrent UTI | | | | [phone] | | | +--------+---------+ + + + [...] + + + | Blood Pressure | 132/82 | 04/27/2018 10:40 AM | | | | | PDT | | + + + + + | Pulse | 110 | 04/27/2018 10:40 AM | | | | | PDT | | + + + + + | Temperature | - | - | | + + + + + | Respiratory Rate | 18 | 04/27/2018 10:40 AM | | | | | PDT | | + + + + + | Oxygen Saturation | - | - | | + + + + + | Inhaled Oxygen | - | - | | | Concentration | | | | + + + + + | Weight | 79.4 kg (175 lb 0.7 | 04/27/2018 10:40 AM | | | | oz) | PDT | | + + + + + | Height | 162.6 cm (5' 4.02") | 04/27/2018 10:40 AM | | | | | PDT | | + + + + + | Body Mass Index | 30.03 | 04/27/2018 10:40 AM | | | | | PDT [...] this encounter Progress Toi Talley MD - 04/27/2018 10:30 AM PDTFormatting of this note might be different f rom the original. Chief Complaint Patient presents with Post Op atropic kidney HPI Samreen Zaragoza is a 53 y.o. female patient of Francine Sanford NP here today for a Post-Op for right kidney atrophy. 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 Patient is 2 weeks postop from right open nephrectomy for atrophic kidney, staghorn calculu s and recurrent infections. Patient is done relatively well since discharge. She continues to complain of abdominal pa in as well as decreased mobility however she feels this is improving. She is also noted janet t her urine is become much more clear and does not need to irrigate nearly as often. He presents today for staple removal Assessment Samreen was seen today for post op. Diagnoses and all orders for this visit: Atrophic kidney Staghorn calculus Recurrent UTI Plan Dayday removed and Steri-Strips were placed. Patient will follow-up in 4 weeks. Past Medical History Past Medical History: Diagnosis [...] Right Nephrectomy; Surgeon: Toi Gonzalez MD; [facility] [place] [facility] nicked bowel, hospitalized x3 weeks SANCHEZ AND [...] 1 pill [address] scan (Patient n ot taking: Reported on 04/27/2018), Disp: 1 capsule, Rfl: 2 fluticasone (FLOVENT HFA) 44 mcg/puff inhaler, Inhale 2 puffs into the lungs 2 times d aily., Disp: , Rfl: oxyCODONE (ROXICODONE) 5 mg tablet, Take 2-3 tablets by mouth every 6 hours as needed for Pain. (Patient not taking: Reported on 04/27/2018), Disp: 40 tablet, Rfl: 0 raNITIdine (ZANTAC) 150 MG capsule, Take 150 mg by mouth nightly., Disp: , Rfl: ROS Gen.: No fever no chills GI: No nausea no vomiting Pulmonary: No wheezing or coughing Cardio: No chest pain or shortness of breath Objective BP 132/82 | Pulse 110 | Resp 18 | Ht 1.626 m (5' 4.02") | Wt 79.4 kg (175 lb 0.7 oz) | BMI 30.03 kg/m General Appearance: Alert, cooperative, no distress, appears stated age Head: Normocephalic, without obvious abnormality, atraumatic Eyes: PERRL, conjunctiva/corneas clear, EOM's intact Throat: Lips, mucosa, and tongue normal; no gross deformities, mmm Neck: Supple, symmetrical, no adenopathy Lungs: Regular, unlabored breathing MS No CVA tenderness, no spinal tenderness, no scoliosis present Abdomen: incision shows no signs of infection, no erythema, dayday in place. Abdomen i s flat appropriately tender along the incision. Extremities: Extremities normal, atraumatic, no cyanosis, clubbing, [...] longer present Confirmed by REMINGTON GRANT MD ([id number]) on 04/12/2018 10:25:41 AM Type and Screen Result Value Ref Range ABO A Rh Type Positive Antibody Screen Negative Lab Results Component Value Date CREA 0.69 04/12/2018 Francine Sanford NP's notes were reviewed in clinic today. No Follow-up on file.. CC: Francine Sanford NP, Karely Blue UrologistNatalie, [facility] signed by Anton Gonzalez MD at 04/27/2018 12:44 PM PDTdocumented in this encounter Plan of Treatment +--------+---------+ + + + | Date | Type | Specialty | Care Team | Description | +--------+---------+ + + + | 12/02/ | Office | Gastroenterology | [facility], | | | 2019 | Visit | | CRISTHIAN Carbone [address] | | | | | | [address] | | | | | | [place] | | | | | | [id number] | | | | | | | | +--------+---------+ + + + documented as of this encounter Visit Diagnoses + + | Diagnosis | + + | Atrophic kidney - Primary Renal sclerosis, unspecified | + + | Staghorn calculus Calculus of kidney | + + | Recurrent UTI Urinary tract infection, site not specified | + + documented in this encounter
--- OUTSIDE RECORDS SUMMARY | ~2019-11-08 | XMS | Encounter Summary ---
Demographics + + + | Address | [address] | | | [place] [address] | + + + | Home Phone [...] Author + + + | Author | [facility] | + + + | Organization | [facility] | + + + | Address | Unknown | + + + | Phone | Unavailable | + + + Support + + + + + | Name | Relationship | Address | Phone | + + + + + | Darius Fields | HELEN | [address] | | | | | [place] [address] | | + + + + + Care Team Providers + +------+ + | Care Senior Cyber Intelligence Analyst Name | Role | Phone | + [...] Building | | | | | | [place], [place] | | | | | | [address] | | | | | | [phone] | | | +--------+ + + + [...]
--- OUTSIDE RECORDS SUMMARY | ~2019-11-08 | XMS | Encounter Summary ---
Demographics + + + | Address | [address] | | | [place] [address] | + + + | Home Phone | | + + + | Preferred Language | Unknown | + + + | Marital Status | Single | + + + | Pentecostal Affiliation | CHR | + + + | Race | White | + + + | Ethnic Group | Not or | + + + Author + + + | Author | [facility] | + + + | Organization | [facility] | + + + | Address | Unknown | + + + | Phone | Unavailable | + + + Support + + + + + | Name | Relationship | Address | Phone | + + + + + | Darius Fields | HELEN | [address] | | | | | [place] [address] | | + + + + + Care Team Providers + +------+ + | Care Order Worker Name | Role | Phone | + +------+ + | Serena Barroso | PCP | | + +------+ + Reason for Visit +--------+ + | Reason | Comments | +--------+ + | Other | kidney working | +--------+ + Encounter Details +--------+ + + + + | Date | Type | Department | Care Team | Description | +--------+ + + + + | 01/17/ | Telephone | Urology Oncology | Kristie, | Other (kidney | | 2008 | | [address] | MD Reinaldo | working) | | | | Mailcode: CH10U | | | | | | [facility] | | | | | | and [place], | | | | | | Building | | | | | | [place], [place] | | | | | | [address] | | | | | | [phone] | | | +--------+ + + + [...]
--- OUTSIDE RECORDS SUMMARY | ~2019-11-08 | XMS | Encounter Summary ---
Demographics + + + | Address | [address] | | | [place] [address] | + + + | Home Phone | | + + + | Preferred Language | Unknown | + + + | Marital Status | | + + + | Latter-Day Affiliation | Unknown | + + + | Race | Unknown | + + + | Ethnic Group | Unknown | + + + Author + + + | Author | [facility] | | | and [place] | + + + | Organization | [facility] | | | and [place] | + + + | Address | Unknown | + + + | Phone | Unavailable | + + + Support + + + + + | Name | Relationship | Address | Phone | + + + + + | Darius Fields | HELEN | [address] | | | | | , [address] | | + + + + + Care Team Providers + +------+ + | Care Rd Manager Name | Role | Phone | + +------+ + | Francine Sanford NP | PCP | | + +------+ + Reason for Visit + + + | Reason | Comments | + + + | Incontinence | | | Supplies | | + + + Encounter Details +--------+ + + + + | Date | Type | Department | Care Team | Description | +--------+ + + + + | 05/06/ | Telephone | [facility] | Toi Gonzalez | Incontinence | | 2018 | | [address] | MD Leighann [address] | Supplies | | | | [place], [place] | [place], [place] | | | | | [address] | [address] | | | | | [phone] | | | +--------+ + + + [...] Description | +--------+---------+ + + + | 02/06/ | Office | Gastroenterology | [facility], | | | 2020 | Visit | | CRISTHIAN Carbone [address] | | | | | | [address] | | | | | | [place] | | | | | | [address] | | | | | | | | +--------+---------+ + + + documented as of this encounter Visit Diagnoses + + | Diagnosis | + + | 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
--- OUTSIDE RECORDS SUMMARY | ~2019-11-08 | XMS | Encounter Summary ---
Demographics + + + | Address | [address] | | | [place] [address] | + + + | Home Phone | | + + + | Preferred Language | Unknown | + + + | Marital Status | | + + + | Buddhist Affiliation | Unknown | + + + | Race | Unknown | + + + | Ethnic Group | Unknown | + + + Author + + + | Author | [facility] | | | and [place] | + + + | Organization | [facility] | | | and [place] | + + + | Address | Unknown | + + + | Phone | Unavailable | + + + Support + + + + + | Name | Relationship | Address | Phone | + + + + + | Darius Diamond Luis CERVANTES | [address] | | | | | , [address] | | + + + + + Care Team Providers + +------+ + | Care Commercial Green Building Architect Name | Role | Phone | + +------+ + | Francine Sanford NP | PCP | | + +------+ + Encounter Details +--------+ + + + + | Date | Type | Department | Care Team | Description | +--------+ + + + + | 02/13/ | Preadmit | [facility] | [facility] | Atrophic kidney | | 2018 | Visit | [facility] | MD Leighann [address] | (Primary Dx); Right | | | | CLINIC [address] | [place], [place] | renal atrophy; | | | | [place], [place] | [address] | Hypertension, | | | | [address] | | unspecified type | | | | [phone] | | | +--------+ + + + [...] | 12/02/ | Office | Gastroenterology | [facility], | | | 2020 | Visit | | CRISTHIAN Carbone [address] | | | | | | [address] | | | | | | [place] | | | | | | [address] | | | | | | | | +--------+---------+ + + + documented as of this encounter Procedures + +--------+ + + + | Procedure Name | Priori | Date/Time | Associated Diagnosis | Comments | | | ty | | | | + +--------+ + + + | ECG 12 LEAD | Routin | 02/13/2018 | Right renal | Results for this | | | e | 11:37 AM | atrophy | procedure are in the | | | | PDT | Hypertension, | results section. | | | | | unspecified type | | + +--------+ + + + | CBC W/AUTO | Routin | 02/13/2018 | Right renal | Results for this | | DIFFERENTIAL | e | 11:33 AM | atrophy | procedure are in the | | | | PDT | | results section. | + +--------+ + + + | PTT | Routin | 02/13/2018 | Atrophic kidney | Results for this | | | e | 11:33 AM | | procedure are in the | | | | PDT | | results section. | + +--------+ + + + | PROTIME INR | Routin | 02/13/2018 | Atrophic kidney | Results for this | | | e | 11:33 AM | | procedure are in the | | | | PDT | | results section. | + +--------+ + + + | BASIC METABOLIC | Routin | 02/13/2018 | Right renal | Results for this | | PANEL | e | 11:33 AM | atrophy | procedure are in the | | | | PDT | | results section. | + +--------+ + + + documented in this encounter Results ECG 12 lead (02/13/2018 [...] MD | | | | | | ([id number]) on 02/14/2018 | | | | | [...] 17 | 7 - 18 mg/dL | [facility] | | | | | | [facility] | | | | | | MEDICAL | | | | | | CENTER - | | | | | | LABORATORY | | + + + + + + | Creatinine | 0.81 | 0.60 - 1.30 | [facility] | | | | | mg/dL | [facility] | | | | | | MEDICAL | | | | | | CENTER - | | | | | | LABORATORY | | + + + + + + | eGFR if not | >60Comment: GLOMERULAR | >=60 | [facility] | | | | FILTRATION | mL/min/1.73m2 | [facility] | | | OMANI | RATE,ESTIMATED | | MEDICAL | | | | mL/min/1.99i0Bppj than | | CENTER - | | [...] | ine Ratio | | | [facility] | | [...] + + | [facility] | [address] | [place] | [phone] | | [facility] | | [address] | | | - LABORATORY | | [...] | | | | M/uL | [facility] | | | | [...] | | | Eosinophils | | | [facility] | | [...] | Lymphocytes | | K/uL | [facility] | | | | | | MEDICAL | | | | | | CENTER - | | | | | | LABORATORY | | + + + + + + | Absolute | 0.70 | 0.00 - 1.00 | [facility] | | | Monocytes | | K/uL | [facility] | | | | | | MEDICAL | | | | | | CENTER - | | | | | | LABORATORY | | + + + + + + | Absolute | 0.80 (H) | 0.00 - 0.40 | [facility] | | | Eosinophils | | K/uL | [facility] | | | | | | MEDICAL | | | | | | CENTER - | | | | | | LABORATORY | | + + + + + + | Absolute | 0.10 | 0.00 - 0.10 | [facility] | | | Basophils | | K/uL | [facility] | | | | | | [...] | [address] | [place] | [phone] | | [facility] | | [address] | | | - LABORATORY | | | | + + + + + PTT (02/13/2018 11:33 AM PDT) + +-------+ + + + | Component | Value | Ref Range | Performed | Pathologist | | | | | At | Signature | + +-------+ + + + | aPTT | 28 | 22 - 36 seconds | [facility] | | | | | | [facility] | | | | | | MEDICAL | | | | | | CENTER - | | | | | | LABORATORY | | + +-------+ + + + + + | Specimen | + + | Blood | + + + + + + + | Performing | Address | City/State/Zipcode | Phone Number | | Organization | | | | + + + + + | [facility] | [address] | [place] | [phone] | | [facility] | | [address] | | | - LABORATORY | | | | + + + + + Protime INR (02/13/2018 11:33 AM PDT) + + + + + + | Component | Value | Ref Range | Performed | Pathologist | | | | | At | Signature | + + + + + + | Prothrombin | 11.6 | 11.3 - 13.9 | [facility] | | | Time | | seconds | [facility] | | | | | | MEDICAL | | | | | | CENTER - | | | | | | LABORATORY | | + + + + + + | INR | 0.86 (L)Comment: Usual | 0.90 - 1.10 | [facility] | | | | Oral Anticoagulation | | [facility] | | | | Range: 2.0 - | | MEDICAL | | | | 3.0High Level Oral | | CENTER - | | | | Anticoagulation Range: | | LABORATORY | | | | 2.5 - 3.5 | | | | + + + + + + + + | Specimen | + + | Blood | + + + + + + + | Performing | Address | City/State/Zipcode | Phone Number | | Organization | | | | + + + + + | [facility] | [address] | [place] | [phone] | | [facility] | | [address] | | | - LABORATORY | | | | + + + + + documented in this encounter Visit Diagnoses + + | Diagnosis | + + | Atrophic kidney - Primary Renal sclerosis, unspecified | + + | Right renal atrophy Renal sclerosis, unspecified | + + | Hypertension, unspecified type | + + documented in this encounter"
--- OUTSIDE RECORDS SUMMARY | ~2019-11-08 | XMS | Clinical Summary ---
Demographics + + + | Address | [address] | | | [place] [address] | + + + | Home Phone | | + + + | Preferred Language | Unknown | + + + | Marital Status | | + + + | Restorationist Affiliation | Unknown | + + + | Race | Unknown | + + + | Ethnic Group | Unknown | + + + Author + + + | Author | [facility] | | | and [place] | + + + | Organization | [facility] | | | [...] #3 | | | | | , [address] | | + + + + + Care Team Providers + +------+ + | Care Healthcare Administrator Name | Role | Phone | + +------+ + | Francine Sanford NP | PCP | | + +------+ + Allergies + [...] + + +---------+------+------+-------+ | Incontinence | 14 maltese urinary | 210 | 11 | 07/1 [...] | 36.4 C (97.5 F) | 04/14/2018 8:35 AM | | | | | PDT | | + + + + + | Respiratory Rate | 18 | 05/18/2018 10:12 AM | | | | | PDT | | + + + + + | Oxygen Saturation | 91% | 04/14/2018 10:10 AM | | | | | PDT [...] + + + + Plan of Treatment +--------+---------+ + + + | Date | Type | Specialty | Care Team | Description | +--------+---------+ + + + | 12/02/ | Office | Gastroenterology | [facility], | | | 2020 | Visit | | CRISTHIAN Carbone [address] | | | | | | [address] | | | | | | [place] | | | | | | [address] | | | | | | | | +--------+---------+ + + + + + + + + | Health Maintenance | Due Date | Last Done | Comments | + + + + + | Vaccine: | | | | | Dtap/Tdap/Td (1 - | 7 | | | | Tdap) | | | | + + + + + | Cervical Cancer | | | | | Screening (Pap) | 6 | | | + + + + + | Breast Cancer | | | | | Screening | 1 | | | + + + + [...] Vaccine: Influenza | | | | | (#1) | 9 | | | + [...] +--------+ +---------+--------+ | MEDICARE | MEDICA | [id number] | | [phone] | | Medica | | | RE | | 010-Pr | 5 | | re | | | PART A | | esent | | | | | | AND B | | | | | | + +--------+ +--------+ +---------+--------+ | [employer]AN | MODA | [id number] | 10/21/ | [phone] | | Medica | | MEDICAID HMO | HEALTH | | 2019-P | 1 | | id | | | MDCD | | resent | | | | | | HMO [...] | | | | | | | [address] | + +--------+ +--------+ + + Advance Directives + + + + + | Type | Date Recorded | Patient | Explanation | | | | Meat Grader | | + + + + + | Power of | | | | | Clinical Program Manager | | | | + + + + + | Advance | 02/17/2018 9:31 | | | | Directive | AM | | | + + + + + + + + + + | Code Status | Date | Date | Comments | | | Activated | Inactivated | | + + + + + | Full Code | 04/09/2018 | 04/14/2018 | | | | 4:36 PM | 2:35 PM | | + + + + +
--- OUTSIDE RECORDS SUMMARY | ~2019-11-08 | XMS | Encounter Summary ---
Demographics + + + | Address | [address] | | | [place] [address] | + + + | Home Phone | | + + + | Preferred Language | Unknown | + + + | Marital Status | Single | + + + | Hinduism Affiliation | CHR | + + + | Race | White | + + + | Ethnic Group | Not or | + + + Author + + + | Author | [facility] | + + + | Organization | [facility] | + + + | Address | Unknown | + + + | Phone | Unavailable | + + + Support + + + + + | Name | Relationship | Address | Phone | + + + + + | Darius Fields | HELEN | [address] | | | | | [place] [address] | | + + + + + Care Team Providers + +------+ + | Care Solidworks Designer Name | Role | Phone | [...] [address] | | | | | | [place], [place] | | | | | | [address] | | | | | | [phone] | | | +--------+------+ + + + [...] + + documented in this encounter Results [facility] - COMPLETE METABOLIC SET (06/29/2009 12:57 [...] | + + + + + | [facility] DEPARTMENT | [address] | [place] [address] | | | PATHOLOGY | [address] | | | + + + + + | [facility] DEPARTMENT OF | [facility] | [place] [address] | | | PATHOLOGY | [address] [...] | + + + + + | [facility] | [address] [facility] | [place] [address] | | | PATHOLOGY | [address] | | | + + + + + | [facility] | [address] [facility] | [place] [address] | | | PATHOLOGY | [address] | | | + + + + + documented in this encounter Visit Diagnoses + + | Diagnosis | + + | Renal insufficiency Unspecified disorder of kidney and ureter | + + documented in this encounter"
--- OUTSIDE RECORDS SUMMARY | ~2019-11-08 | XMS | Clinical Summary ---
Demographics + + + | Address | [address] | | | [place] [address] | + + + | Home Phone [...] | | | | | [place] [address] | | + + + + + Care Team Providers + +------+ + | Care Appellate Court Clerk Name | Role | Phone | + +------+ + | Serena Barroso | PCP | | + +------+ + Source Comments RONNY is fully live on both EpicCare Ambulatory and EpicCare InPatient.[facility] Allergies + + + + + + [...] | | | + +--------+ +--------+-------+---------+--------+ | DRIVABILITY TECHNICIAN MEDICAID | DRIVABILITY TECHNICIAN | xxxxxxxx | 06/27/20 | | | [...] | 1965 | [phone] | [place] [address] | | | wilman | | | 9 (Home) | | + +--------+ +--------+ + + Advance Directives + + + + + | Type | Date Recorded | Patient | Explanation | | | | Parts Casting Machine Operator | | + + + + + | Advance | | | | | Directives and | | | | | Living Will | | | | + + + + + | Power of | | | | | Production Administrator | | | | + + + + +
--- OUTSIDE RECORDS SUMMARY | ~2019-11-08 | XMS | Encounter Summary ---
Demographics + + + | Address | [address] | | | [place] [address] | + + + | Home Phone | | + + + | Preferred Language | Unknown | + + + | Marital Status | | + + + | Gnosticist Affiliation | Unknown | + + + | Race | Unknown | + + + | Ethnic Group | Unknown | + + + Author + + + | Author | [facility] | | | and [place] | + + + | Organization | [facility] | | | and [place] | + + + | Address | Unknown | + + + | Phone | Unavailable | + + + Support + + + + + | Name | Relationship | Address | Phone | + + + + + | Darius Fields | HELEN | [address] | | | | | , [address] | | + + + + + Care Team Providers + +------+ + | Care Appeals Referee Name | Role | Phone | + [...] + + | 04/28/ | Telephone | [facility] | [place] | Urology Appointment; | | 2017 | | [address] | MD Leighann [address] | Incontinence | | | | [place], [place] | [place], [place] | Supplies | | | | [address] | [address] | | | | | [phone] | | | +--------+ + + + [...] | 12/02/ | Office | Gastroenterology | [facility], | | | 2019 | Visit | | CRISTHIAN Carbone [address] | | | | | | [address] | | | | | | [place] | | | | | | [address] | | | | | | | | +--------+---------+ + + + documented as of this encounter Visit Diagnoses Not on filedocumented in this encounter"
--- OUTSIDE RECORDS SUMMARY | ~2019-11-08 | XMS | Encounter Summary ---
Demographics + + + | Address | [address] | | | [place] [address] | + + + | Home Phone [...] | | | | | [place] [address] | | + + + + + Care Team Providers + +------+ + | Care Clinical Education Academic Coordinator Name | Role | Phone | [...] [id number] | | | | | | [facility] | | | | | | and Healing, | | | | | | | | | | | | Floor [place], [place] | | | | | | [address] | | | | | | [phone] | | | +--------+ + + + [...]
--- OUTSIDE RECORDS SUMMARY | ~2019-11-08 | XMS | Clinical Summary ---
Demographics + + + | Address | [address] | | | [place] [address] | + + + | Home Phone | | + + + | Preferred Language | Unknown | + + + | Marital Status | | + + + | Rastafari Affiliation | Unknown | + + + | Race | Unknown | + + + | Ethnic Group | Unknown | + + + Author + + + | Author | [facility] | | | and [place] | + + + | Organization | [facility] | | | and [place] | + + + | Address | Unknown | + + + | Phone | Unavailable | + + + Support + + + + + | Name | Relationship | Address | Phone | + + + + + | Darius Fields | ECON | [address] | | | | | , [address] | | + + + + + Care Team Providers + +------+ + | Care Legal Summer Intern Name | Role | Phone | [...] + + +---------+------+------+-------+ | Incontinence | 14 turkish urinary | 210 | 11 | 07/1 [...] [place] | | | | | | [address] | | | | | | | [...] +--------+ +---------+--------+ | MEDICARE | MEDICA | [id number] | | [phone] | | Medica | | | RE | | 010-Pr | 5 | | re | | | PART A | | esent | | | | | | AND B | | | | | | + +--------+ +--------+ +---------+--------+ | [employer] HE[employer] PLAN | MODA | [id number] | 10/21/ | [phone] | | Medica [...] | | | | | | | [address] | + +--------+ +--------+ + + Advance Directives + + + + + | Type | Date Recorded | Patient | Explanation | | | | Chlorine Operator | | + + + + + | Power of | | | | | Director Of Scout Work | | | | + + + [...]
--- OUTSIDE RECORDS SUMMARY | ~2019-11-08 | XMS | Encounter Summary ---
Demographics + + + | Address | [address] | | | [place] [address] | + + + | Home Phone [...] | | | | | [place] [address] | | + + + + + Care Team Providers + +------+ + | Care Woodworker Name | Role | Phone | + [...] [id number] | | | | | | [place], [place] | | | | | | [address] | | | | | | [phone] | | | +--------+ + + + [...]
--- OUTSIDE RECORDS SUMMARY | ~2019-11-08 | XMS | Encounter Summary ---
Demographics + + + | Address | [address] | | | [place] [address] | + + + | Home Phone [...] | | | | | [place] [address] | | + + + + + Care Team Providers + +------+ + | Care Award Machine Operator Name | Role | Phone [...] [id number] | | | | | | [facility] | | | | | | and Healing, | | | | | | | | | | | | Floor [place], [place] | | | | | | [address] | | | | | | [phone] | | | +--------+ + + + [...]
--- OUTSIDE RECORDS SUMMARY | ~2019-11-08 | XMS | Encounter Summary ---
Demographics + + + | Address | [address] | | | [place] [address] | + + + | Home Phone [...] | Organization | [facility] | | | and [place] | + + + | Address | Unknown | + + + | Phone | Unavailable | + + + Support + + + + + | Name | Relationship | Address | Phone | + + + + + | Darius Diamond | HELEN | [address] | | | | | , [address] | | + + + + + Care Team Providers + +------+ + | Care Medical Transcription Editor Name | Role | Phone | + [...] | 04/20/ | Telephone | [facility] | [place] | Pain | | 2018 | | [address] | MD Leighann [address] | | | | | [place], [place] | [place], [place] | | | | | [address] | [address] | | | | | [phone] | | | +--------+ + + + [...] | 12/02/ | Office | [facility]astroenterology | [facility] [place] | | | [facility] | Visit | | CRISTHIAN Carbone [address] | | | | | | [address] | | | | | | [place] | | | | | | [address] | | | | | | | | +--------+---------+ + + + documented as of this encounter Visit Diagnoses Not on filedocumented in this encounter"
--- OUTSIDE RECORDS SUMMARY | ~2019-11-08 | XMS | Encounter Summary ---
Demographics + + + | Address | [address] | | | [place] [address] | + + + | Home Phone | | + + + | Preferred Language | Unknown | + + + | Marital Status | | + + + | Jew Affiliation | Unknown | + + + | Race | Unknown | + + + | Ethnic Group | Unknown | + + + Author + + + | Author | [facility] | | | and [place] | + + + | Organization | [facility] | | | and [...] #3 | | | | | , [address] | | + + + + + Care Team Providers + +------+ + | Care Lead Ingot Molder Name | Role | Phone | + +------+ + PCP | Unavailable | + +------+ + Encounter Details +--------+ + + + + | Date | Type | Department | Care Team | Description | +--------+ + + + + | 10/26/ | Hospital | [facility] | Arnie Toney MD | | | 2007 - | Encounter | MED CTR GENERIC IP | [address] [facility] | | | | | CONV DEPT [address] | [place], [place] | | | 10/29/ | | [place], | [address] | | | 2007 | | [place] [address] | | | | | | [phone] | | | +--------+ + + + [...] | 12/02/ | Office | Gastroenterology | [facility], | | | 2019 | Visit | | CRISTHIAN Carbone [address] | | | | | | [address] | | | | | | [place] | | | | | | [address] | | | | | | | | +--------+---------+ + + + documented as of this encounter Visit Diagnoses Not on filedocumented in this encounter"
--- OUTSIDE RECORDS SUMMARY | ~2019-11-08 | XMS | Encounter Summary ---
Demographics + + + | Address | [address] | | | [place] [address] | + + + | Home Phone | | + + + | Preferred Language | Unknown | + + + | Marital Status | | + + + | Taoism Affiliation | Unknown | + + + | Race | Unknown | + + + | Ethnic Group | Unknown | + + + Author + + + | Author | [facility] | | | and [place] | + + + | Organization | [facility] | | | and [place] | + + + | Address | Unknown | + + + | Phone | Unavailable | + + + Support + + + + + | Name | Relationship | Address | Phone | + + + + + | Darius Fields | ECON | [address] | | | | | , [phone] | | + + + + + Care Team Providers + +------+ + | Care Assistant Professor Of Psychology Name | Role | Phone | + [...] | | | | | | | CO REMV | | | | | | [...] + + + + | 04/09/ | Hospital | [facility] | Toi Gonzaelz | Recurrent UTI; | | 2018 - | Encounter | [facility] | MD Leighann [address] | Hydronephrosis with | | | | [address] | [address] [place] | ureteral stricture, | | 04/14/ | | [place] [address] | [phone] | not elsewhere | | 2018 | | [phone] | | classified; Staghorn | | | | | | calculus; Atrophic | | | | | | kidney | +--------+ + + + + Social [...] + + + | Blood Pressure | 147/86 | 04/14/2018 8:35 AM | | | | | PDT | | + + + + + | Pulse | 120 | 04/14/2018 10:10 AM | | | | | PDT | | + + + + + | Temperature | 36.4 C (97.5 F) | 04/14/2018 8:35 AM | | | | | PDT | | + + + + + | Respiratory Rate | 18 | 04/14/2018 8:35 AM | | | | | PDT | | + + + + + | Oxygen Saturation | 91% | 04/14/2018 10:10 AM | | | | | PDT | | + + + + + | Inhaled Oxygen | - | - | | | Concentration | | | | + + + + + | Weight | 83.5 kg (184 lb 1.4 | 04/09/2018 8:21 AM | | | | oz) | PDT | | + + + + + | Height | 162.6 cm (5' 4.02") | 04/09/2018 8:21 AM | | | | | PDT | | + + + + + | Body Mass Index | 31.58 | 04/09/2018 8:21 AM | | | | | PDT [...] documented as of this encounter Discharge Summaries Toi Gonzalez MD - 04/14/2018 8:20 AM PDTFormatting of this note might be different f rom the original. 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 Condition on Discharge: Stable Discharge Medications: Medications Reconciled upon Discharge are: There is no immunization history on file for this patient. Follow-Up: 1. Urology Dr. Gonzalez in 2 weeks. Instructions: 1. Diet: regular 2. Activity: As tolerated, no heavy lifting >15# x 3 weeks Code Status/Advance Directive (Pertinent discussions/declarations): Prior documented in this encounter Medications at Time of Discharge + + + +---------+ + + | Medication | Sig | Dispensed | Refills | Start | End Date | | | | | | Date | | + + + +---------+ + + | albuterol | Inhale 2 puffs into | | 0 | | | | (VENTOLIN HFA) 90 | the lungs every 6 | | | | | | mcg/puff inhaler | hours as needed for | | | | | | | Wheezing. | | | | | + + + +---------+ + + | diphenhydrAMINE | Take 1 pill 1 hour | 1 | 2 | 04/20/20 | | | (BENADRYL) 25 MG | before CT scan | capsule | | 18 | | | capsule | | | | | | + + + +---------+ + + | fluticasone | Inhale 2 puffs into | | 0 | | | | (FLOVENT HFA) 44 | the lungs 2 times | | | | | | mcg/puff inhaler | daily. | | | | | + + + +---------+ + + | raNITIdine | Take 150 mg by mouth | | 0 | | | | (ZANTAC) 150 MG | nightly. | | | | | | capsule | | | | | | + + + +---------+ + + | Ambulatory | Place 1 Device into | 90 | 2 | 04/28/20 | | | Compound Builder | the urethra 3 times | Device | | 18 | 8 | | | daily. Straight cath | | | | | | | three times daily | | | | | + + + +---------+ + + | oxyCODONE | Take 2-3 tablets by | 40 | 0 | 04/14/20 | | | (ROXICODONE) 5 mg | mouth every 6 hours | tablet | | 18 | 8 | | tablet | as needed for Pain. | | | | | + + + +---------+ + + documented as of this encounter Progress Notes Toi Gonzalez MD - 04/13/2018 7:48 PM PDTFormatting of this note might be different f rom the original. [facility] Progress Note Samreen Zaragoza is now POD # 4 s/p right open nephrectomy IMPRESSION: Recurrent UTI, staghorn calculus, atrophic kidney PLAN: Continue to mobilize Anticipate D/C tomorrow SUBJECTIVE: Pain is adequately controlled. Patient is passing flatus. Patient does not complain of nausea. Currently tolerating diet well. No complaints of chest pain or SOB. Scheduled Meds: acetaminophen 650 mg Oral 3 times per day budesonide 0.5 mg Nebulization RT BID cephalexin 500 mg Oral TID dilTIAZem 120 mg Oral Daily gabapentin 100 mg Oral TID oxyCODONE 5 mg Oral Q2H OBJECTIVE: VS past 24 hours: Temp: [36.5 C (97.7 F)-37.4 C (99.3 F)] 36.5 C (97.7 F) Pulse: [109-122] 113 Resp: [18-20] 18 BP: (112-177)/(66-102) 112/66 Temp (24hrs), Av.8 C (98.3 F), Min:36.5 C (97.7 F), Max:37.4 C (99.3 F) I/O past 24 hours: I/O last 3 completed shifts: In: 1272 [P.O.:940; I.V.:332] Out: 4490 [Urine:4490] PHYSICAL EXAM: General: Awake, alert, in no acute distress. Speech is fluent. Lungs: Normal respiratory effort, no wheezing, no stridor, no tachypnea. Back: No CVA tenderness. Abdomen: Soft, incision c/d/i, diffusely ttp along incision, non distended, catheter in pl humberto with clear urine. Extremities: Non-edematous. Hips and long bones nontender to fist percussion. Psychiatric: Mood and affect are normal. Normal judgment. Skin: Warm and dry, no erythematous rash. Labs: Recent Labs Lab 04/12/18 1109 04/10/18 0528 04/09/18 1714 HCT 34.4 37.2 40.7 No results found for this or any previous visit (from the past 24 hour(s)). Lab Results Component Value Date CREA 0.69 04/12/2018 BUN 7 04/12/2018 NA 134 (L) 04/12/2018 K 3.1 (L) 04/12/2018 CL 99 04/12/2018 CO2 27 04/12/2018 Electronically Signed by: Bjorn Gonzalez M.D. DATE/TIME: 04/13/2018 19:48 Gulshan Vasquez MD - 04/13/2018 6:00 AM PDT DATE/TIME: 04/13/2018 6:00 ASSESSMENT AND PLAN: 1. Mucus obstruction of catheter in urinary reservoir. Updated vitals requested as the las t set listed as blood pressure 177/94 with pulse 112 at 3 AM during her symptomatic episode. Still to be determined as the need for higher dose diltiazem or perhaps a beta oriana for sinus tachycardia and hypertension. SUBJECTIVE/ROS: Samreen Zaragoza is now Hospital Day: 5 following right nephrectomy. Nurse phoned a f ew hours ago reporting increased patient abdominal discomfort and no urine output for 4 hour s. Catheter was irrigated returning mucus debris and 1000 cc urine. Patient feels much imp roved. CURRENT INFUSIONS CURRENT MEDICATIONS acetaminophen 650 mg Oral 3 times per day budesonide 0.5 mg Nebulization RT BID cephalexin 500 mg Oral TID dilTIAZem 120 mg Oral Daily gabapentin 100 mg Oral TID I personally reviewed the above medications. OBJECTIVE: Temp: 36.6 C (97.9 F) BP: (!) 177/94 Pulse: 112 Resp: 18 SpO2: 96 % on Min/Max Temp past 24 hours:Temp Av.1 C (98.7 F) Min: 36.6 C (97.9 F) Max: 3 7.4 C (99.3 F) Intake/Output Summary (Last 24 hours) at 04/13/18 0600 Last data filed at 04/13/18 0420 Gross per 24 hour Intake 332 ml Output 2550 ml Net -2218 ml Wt. Admission: Weight: 83.5 kg (184 lb 1.4 oz) Wt. Current: Weight: 83.5 kg (184 lb 1.4 oz) General: Alert and appears comfortable Heart: Lungs: Abdomen: Chemistry: Lab Results Component Value Date NA 134 04/12/2018 K 3.1 04/12/2018 CO2 27 04/12/2018 BUN 7 04/12/2018 CREA 0.69 04/12/2018 GLU 124 04/12/2018 Hematology: Lab Results Component Value Date HGB 12.0 04/12/2018 HCT 34.4 04/12/2018 WBC 12.5 04/12/2018 Electronically Signed by: Gulshan Dumont MD, 04/13/2018 6:00 [facility] Gulshan Dumont MD at 04/13 6:05 AM PDTSisnataliia, Gulshan Butler MD - 04/12/2018 10:57 AM PDT DATE/TIME: 04/12/2018 10:57 ASSESSMENT AND PLAN: 1. Saline lock IV. Diltiazem added for sinus tachycardia with hypertension . Add scheduled Tylenol and gabapentin to allow reduced narcotics. Labs ordered. Three visits by end totaling more than 25 minutes. SUBJECTIVE/ROS: Samreen Zaragoza is now Hospital Day: 4 following right simple nephrectomy. Because o f her prior cholecystectomy, she refuses Senokot, expecting diarrhea as a consequence. She is tolerating regular diet and passing flatus. Ambulation is a bit more limited today becau se of incisional pain. CURRENT INFUSIONS CURRENT MEDICATIONS acetaminophen 650 mg Oral 3 times per day budesonide 0.5 mg Nebulization RT BID cephalexin 500 mg Oral TID dilTIAZem 120 mg Oral Daily gabapentin 100 mg Oral TID I personally reviewed the above medications. OBJECTIVE: Temp: 36.7 C (98.1 F) BP: 140/77 Pulse: 120 Resp: 16 SpO2: 92 % on Min/Max Temp past 24 hours:Temp Av C (98.6 F) Min: 36.7 C (98.1 F) Max: 37. 1 C (98.8 F) Intake/Output Summary (Last 24 hours) at 04/12/18 1057 Last data filed at 04/12/18 0738 Gross per 24 hour Intake 2159 ml Output 2950 ml Net -791 ml Wt. Admission: Weight: 83.5 kg (184 lb 1.4 oz) Wt. Current: Weight: 83.5 kg (184 lb 1.4 oz) General: Alert and oriented Heart: Sinus tachycardia Lungs: Right lung clear. Left lung has decreased breath sounds. Abdomen: Very active bowel tones. Moderate tenderness over her right subcostal scar. No n ew bleeding on the dressing from day of surgery. Chemistry: Hematology: Electronically Signed by: Gulshan Dumont MD, 04/12/2018 10:57 [facility] by Gulshan Dumont MD at 04/12 7:26 PM Yumiko Chandra RN - 04/11/2018 6:44 PM PDTPt reported feeling "heart ra cing" and seeing white specks in vision. VS: BP 153/83, HR 128 apically, O2 sats 93% on 2 L NC, T 98.8, RR 17. Pt reported hx of anxiety self-medicated with herbal meds at home. Provid er notified, orders placed. WCTM. Gulshan Vasquez MD - 04/11/2018 12:48 PM PDTFormatting of this note might be dif ferent from the original. DATE/TIME: 04/11/2018 12:48 ASSESSMENT AND PLAN: 1. Satisfactory progress with good motivation. Multiple allergies limits analgesic choices . Sinus tachycardia andhypertension by end of day, diltiazem added. More than 25 minutes in assessment. SUBJECTIVE/ROS: Samreen Zaragoza is now Hospital Day: 3 following right simple nephrectomy for atrophi c kidney with stone. No fever in the last 24 hours. She is ambulating in halls. She is ta jana oxycodone 10 mg every 3-6 hours. She has allergies to numerous other pain medicine. T olerating some solid food and drinking liquids adequately. She is wearing 2 L oxygen. Fole y catheter draining yellow urine per her urostomy. She remains on extended cephalexin becau se of recurrent UTI. She has good motivation and effort working with respiratory therapy. CURRENT INFUSIONS dextrose 5% and sodium chloride 0.9% 100 mL/hr at 04/11/18 1012 lactated ringers 1,000 mL (04/09/18 0841) CURRENT MEDICATIONS budesonide 0.5 mg Nebulization RT BID cephalexin 500 mg Oral TID docusate-senna 2 tablet Oral BID I personally reviewed the above medications. OBJECTIVE: Temp: 36.7 C (98.1 F) BP: 149/89 Pulse: 104 Resp: 18 SpO2: 93 % on Min/Max Temp past 24 hours:Temp Av.2 C (98.9 F) Min: 36.7 C (98.1 F) Max: 3 7.6 C (99.7 F) Intake/Output Summary (Last 24 hours) at 04/11/18 1248 Last data filed at 04/11/18 1213 Gross per 24 hour Intake 2475 ml Output 2800 ml Net -325 ml Wt. Admission: Weight: 83.5 kg (184 lb 1.4 oz) Wt. Current: Weight: 83.5 kg (184 lb 1.4 oz) General: Alert and oriented Heart: Lungs: Clear to auscultation Abdomen: Rare bowel tones, no tympany, dressing has remained zone of dark dried blood Chemistry: Hematology: Electronically Signed by: Gulshan Dumont MD, 04/11/2018 12:48 [facility] Gulshan Dumont MD at 04/12 7:28 PM PDTSpendToi pagan MD - 04/10/2018 8:06 AM PDTFormatting of this note rich ht be different from the original. [facility] Progress Note Samreen Zaragoza is now POD # 1 s/p right open nephrectomy IMPRESSION: Elevated white blood cell count, solitary kidney PLAN: Bowel regiment Ambulation 4 times per day Will continue keflex post op. Patient had a hydronephrotic kidney with staghorn calculus t hat lead to recurrent UTI's. Will treat for 7 days post op. SUBJECTIVE: Pain is adequately controlled. Patient is not passing flatus. Patient does complain of nausea. Currently tolerating diet well. No complaints of chest pain or SOB. Scheduled Meds: cephalexin 500 mg Oral TID OBJECTIVE: VS past 24 hours: Temp: [35.3 C (95.5 F)-36.4 C (97.5 F)] 36 C (96.8 F) Pulse: [92-113] 112 Resp: [11-33] 15 BP: (78-146)/(46-93) 136/93 Temp (24hrs), Av.1 C (97 F), Min:35.3 C (95.5 F), Max:36.4 C (97.5 F) I/O past 24 hours: I/O last 3 completed shifts: In: 3700 [P.O.:900; I.V.:2800] Out: 2275 [Urine:2175; Blood:100] PHYSICAL EXAM: General: Awake, alert, in no acute distress. Speech is fluent. Lungs: Normal respiratory effort, no wheezing, no stridor, no tachypnea. Back: No CVA tenderness. Abdomen: ttp along RUQ. Mildly distended, dressing is c/d/i, cash in stoma with clear uri ne output. Extremities: Non-edematous. Hips and long bones nontender to fist percussion. Psychiatric: Mood and affect are normal. Normal judgment. Skin: Warm and dry, no erythematous rash. Labs: Recent Labs Lab 04/10/18 0528 04/09/18 1714 HCT 37.2 40.7 Recent Results (from the past 24 hour(s)) Type and Screen Result Value Ref Range ABO A Rh Type Positive Antibody Screen Negative CBC no Differential Result Value Ref Range [...] Absolute Basophils 0.10 0.00 - 0.10 K/uL Lab Results Component Value Date CREA 0.86 04/10/2018 BUN 15 04/10/2018 NA 135 (L) 04/10/2018 K 3.5 04/10/2018 CL 104 04/10/2018 CO2 24 04/10/2018 Electronically Signed by: Bjorn Gonzalez M.D. DATE/TIME: 04/10/2018 8:06 documented in this encounter Plan of Treatment +--------+---------+ + + + | Date | Type | Specialty | Care Team | Description | +--------+---------+ + + + | 12/02/ | Office | Gastroenterology | [facility] | | | 2019 | Visit | | [facility]HI[facility] Carbone [address] | | | | | [address] | | | | | | [place] | | | | | | [id number] | | | | | | | | +--------+---------+ + + + documented as of this encounter Procedures + +--------+ + + + | Procedure Name | Priori | Date/Time | Associated Diagnosis | Comments | | | ty | | | | + +--------+ + + + | PERFORM HOME O2 | Routin | 04/14/2018 | | | | EVALUATION | e | 7:58 AM | | | | | | PDT | | | + +--------+ + + + | CBC WITH | Routin | 04/12/2018 | | Results for this | | DIFFERENTIAL | e | 11:09 AM | | procedure are in the | | | | PDT | | results section. | + +--------+ + + + | BASIC METABOLIC | Routin | 04/12/2018 | | Results for this | | PANEL | e | 11:09 AM | | procedure are in the | | | | PDT | | results section. | + +--------+ + + + | ECG 12 LEAD | Routin | 04/11/2018 | | Results for this | | | e | 6:37 PM | | procedure are in the | | | | PDT | | results section. | + +--------+ + + + | CBC WITH | Routin | 04/10/2018 | | Results for this | | DIFFERENTIAL | e | 5:28 AM | | procedure are in the | | | | PDT | | results section. | + +--------+ + + + | BASIC METABOLIC | Routin | 04/10/2018 | | Results for this | | PANEL | e | 5:28 AM | | procedure are in the | | | | PDT | | results section. | + +--------+ + + + | CBC NO DIFFERENTIAL | Routin | 04/09/2018 | | Results for this | | | e | 5:14 PM | | procedure are in the | | | | PDT | | results section. | + +--------+ + + + | NEPHRECTOMY | | 04/09/2018 | Right renal | | | | | 9:24 AM | atrophy (N26.1) | | | | | PDT | | | + +--------+ + + + | TYPE AND SCREEN | Routin | 04/09/2018 | | Results for this | | | e | 8:34 AM | | procedure are in the | | | | PDT | | results section. | + +--------+ + + + | SURGICAL PATHOLOGY | Routin | 04/09/2018 | | Results for this | | EXAM | e | 12:00 AM | | procedure are in the | | | | PDT | | results section. | + +--------+ + + + | LABS - EXTERNAL SCAN | | 04/06/2018 | | Results for this | | | | 12:00 AM | | procedure are in the | | | | PDT | | results section. | + +--------+ + + + documented in this encounter Results Basic Metabolic Panel (04/12/2018 11:09 AM PDT) + + + + + + | Component | Value | Ref Range | Performed | Pathologist | | | | | At | Signature | + + + + + + | Na | 134 (L) | 136 - 149 | [facility] | | | | | mmol/L | [facility] | | | | | | [facility] | | | | | | [facility] - | | | | | | LAB[facility]ATORY | | + + + + + + | K | 3.1 (L) | 3.5 - 5.1 | [facility] | | | | | mmol/L | [facility] | | | | | | [facility] | | | | | | [facility] - | | | | | | LABORATORY | | + + + + + + | Cl | 99 | 98 - 109 mmol/L | [facility] | | | | | | [facility] | | | | | | [facility] | | | | | | [facility] - | | | | | | LAB[facility]ATORY | | + + + + + + | CO2 | 27 | 24 - 31 mmol/L | [facility] | | | | | | [facility] | | | | | | [facility] | | | | | | [facility] - | | | | | | LABORATORY | | + + + + + + | Anion Gap | 8 | 3 - 16 mmol/L | [facility] | | | | | | [facility] | | | | | | [facility] | | | | | | [facility] - | | | | | | LABORATORY | | + + + + + + | Glucose | 124 (H) | 70 - 109 mg/dL | [facility] | | | | | | [facility] | | | | | | [facility] | | | | | | [facility] - | | | | | | LABORATORY | | + + + + + + | BUN | 7 | 7 - 18 mg/dL | [facility] | | | | | | [facility] | | | | | | [facility] | | | | | | [facility] - | | | | | | LABORATORY | | + + + + + + | Creatinine | 0.69 | 0.60 - 1.30 | [facility] | [...] mL/min/1.73m2 | [facility] | | | [facility] | RATE,ESTIMATED | | MEDICAL | | | | mL/min/1.09n4Vksm than | | CENTER - | | [...] + + + + | Calcium | 8.4 | 8.3 - 10.5 | [facility] | | | | | mg/dL | [facility] | | | | | | [facility] | | | | | | [facility] - | | | | | | LABORATORY | | + + + + + + | BUN/Creatin | 10.1 | | [facility] | | | ine Ratio | | | [facility] | | [...] | [address] | [place] | [phone] | | [facility] | | [address] | | | - LABORATORY | | | | + + + + + CBC with Differential (04/12/2018 11:09 AM PDT) + + + + + + | Component | Value | Ref Range | Performed | Pathologist | | | | | At | Signature | + + + + + + | WBC | 12.5 (H) | 4.0 - 11.0 K/uL | [facility] | | | | | | [facility] | | | | | | [facility] | | | | | | [facility] - | | | | | | LABORATORY | | + + + + + + | RBC | 3.72 | 3.70 - 5.20 | [facility] | | | | | M/uL | [facility] | | | | | | [facility] | | | | | | [facility] - | | | | | | LABORATORY | | + + + + + + | Hemoglobin | 12.0 | 11.5 - 16.0 | [facility] | | | | | g/dL | [facility] | | | | | | [facility] | | | | | | [facility] - | | | | | | LABORATORY | | + + + + + + | Hematocrit | 34.4 | 34.0 - 47.0 % | [facility] | | | | | | [facility] | | | | | | [facility] | | | | | | [facility] - | | | | | | LABORATORY | | + + + + + + | MCV | 92.4 | 83.0 - 101.0 fL | [facility] | | | | | | [facility] | | | | | | [facility] | | | | | | [facility] - | | | | | | LABORATORY | | + + + + + + | MCH | 32.2 | 28.0 - 35.0 pg | [facility] [...] + + + + | RDW-CV | 12.7 | <15.0 % | [facility] | | | | | | [facility] | | | | | | [facility] | | | | | | [facility] - | | | | | | LABORATORY | | + + + + + + | Platelet | 261 | 140 - 440 K/uL | [facility] | | | Count | | | [facility] | | | | | | [facility] | | | | | | [facility] - | | | | | | LABORATORY | | + + + + + + | MPV | 9.3 | fL | [facility] | | | | | | [facility] | | | | | | [facility] | | | | | | [facility] - | | | | | | LABORATORY | | + + + + + + | % | 78.1 | 45.0 - 82.0 % | [facility] | | | Neutrophils | | | [facility] | | | | | | [facility] | | | | | | [facility] - | | | | | | LABORATORY | | + + + + + + | % | 12.9 (L) | 20.0 - 45.0 % | [facility] | | | Lymphocytes | | | [facility] | | | | | | [facility] | | | | | | C[facility] - | | | | | | LABORATORY | | + + + + + + | % Monocytes | 6.0 | 4.0 - 12.0 % | [facility] | | | | | | [facility] | | | | | | [facility] | | | | | | [facility] - | | | | | | LABORATORY | | + + + + + + | % | 2.8 | 0.0 - 5.0 % | [facility] | | | Eosinophils | | | [facility] | | | | | | [facility] | | | | | | [facility] - | | | | | | LABORATORY | | + + + + + + | % Basophils | 0.2 | 0.0 - 1.0 % | [facility] | | | | | | [facility] | | | | | | [facility] | | | | | | [facility] - | | | | | | LABORATORY | | + + + + + + | Absolute | 9.80 (H) | 1.80 - 8.50 | [facility] | | | Neutrophils | | K/uL | [facility] | | | | | | [facility] | | | | | | [facility] - | | | | | | LABORATORY | | + + + + + + | Absolute | 1.60 | 0.60 - 3.20 | [facility] | | | Lymphocytes | | K/uL | [facility] | | | | | | [facility] | | | | | | [facility] - | | | | | | LABORATORY | | + + + + + + | Absolute | 0.80 | 0.00 - 1.00 | [facility] | | | Monocytes | | K/uL | [facility] | | | | | | [facility] | | | | | | [facility] - | | | | | | LABORATORY | | + + + + + + | Absolute | 0.40 | 0.00 - 0.40 | [facility] | | | Eosinophils | | K/uL | [facility] | | | | | | [facility] | | | | | | [facility] - | | | | | | LABORATORY | | + + + + + + | Absolute | 0.00 | 0.00 - 0.10 | [facility] | | | Basophils | | K/uL | [facility] | [...] [address] | [place] | [phone] | | [facility] | | [address] | | | - LABORATORY | | | | + + + + + ECG 12 lead (04/11/2018 6:37 PM PDT) + + + + + + | Component | Value | Ref Range | Performed | Pathologist | | | | | At | Signature | + + + + + + | VENTRICULAR | 121 | BPM | [facility] | | | RATE EKG | | | | | + + + + + + | ATRIAL RATE | 121 | BPM | [facility] | | + + + + + + | P-R | 122 | ms | [facility] | | | INTERVAL | | | | | + + + + + + | QRS | 70 | ms | [facility] | | | DURATION | | | | | + + + + + + | Q-T | 326 | ms | [facility] | | | INTERVAL | | | | | + + + + + + | Q-T | 462 | ms | [facility] | | | INTERVAL | | | | | | (CORRECTED) | | | | | + + + + + + | P WAVE AXIS | 38 | degrees | [facility] | | + + + + + + | QRS AXIS | 0 | degrees | [facility] | | + + + + + + | T AXIS | 11 | degrees | [facility] | | + + + + + + | INTERPRETAT | Sinus | | [facility] | | | ION TEXT | tachycardiaOtherwise | | | | | | normal ECGWhen compared | | | | | | with ECG of 13-FEB-2018 | | | | | | 11:37,premature atrial | | | | | | complexes are no longer | | | | | | presentConfirmed by | | | | | | REMINGTON GRANT MD ([id number]) | | | | | | on 04/12/2018 10:25:41 AM | | | | | | | [...] | | | + +---------+ + + CBC with Differential (04/10/2018 5:28 AM PDT) + + + + + + | Component | Value | Ref Range | Performed | Pathologist | | | | | At | Signature | + + + + + + | WBC | 20.3 (H) | 4.0 - 11.0 K/uL | [facility] | | | | | | [facility] | | | | | | [facility] | | | | | | [facility] - | | | | | | LABORATORY | | + + + + + + | RBC | 3.95 | 3.70 - 5.20 | [facility] | | | | | M/uL | [facility] | | | | | | [facility] | | | | | | [facility] - | | | | | | LABORATORY | | + + + + + + | Hemoglobin | 12.9 | 11.5 - 16.0 | [facility] | | | | | g/dL | [facility] | | | | | [facility] | | | | | | [facility] - | | | | | | LABORATORY | | + + + + + + | Hematocrit | 37.2 | 34.0 - 47.0 % | [facility] | | | | | | [facility] | | | | | | [facility] | | | | | | [facility] - | | | | | | LABORATORY | | + + + + + + | MCV | 94.1 | 83.0 - 101.0 fL | [facility] | | | | | | [facility] | | | | | | [facility] | | | | | | [facility] - | | | | | | LABORATORY | | + + + + + + | MCH | 32.6 | 28.0 - 35.0 pg | [facility] | | | | | | [facility] | | | | | | [facility] | | | | | | [facility] - | | | | | | LABORATORY | | + + + + + + | MCHC | 34.7 | 32.0 - 36.0 | [facility] | [...] + + + + | Platelet | 291 | 140 - 440 K/uL | [facility] | | | Count | | | [facility] | | | [facility] | | [facility] | | | | | | C[facility] - | | | | | | LABORATORY | | + + + + + + | MPV | 9.1 | fL | [facility] | [facility] | [facility] | | | | | | [facility] | | | | | | [facility] - | | | | | | LABORATORY | | + + + + + + | % | 87.2 (H) | 45.0 - 82.0 % | [facility] | | | Neutrophils | | | [facility] | | | | | | [facility] | | | | | | CENTER - | | | | | | LABORATORY | | + + + + + + | % | 7.8 (L) | 20.0 - 45.0 % | [facility] | | | Lymphocytes | | | [facility] | | [facility] | [facility] | | | | | | [facility] - | | | | | | LABORATORY | | + + + + + + | % Monocytes | 4.5 | 4.0 - 12.0 % | [facility] | | | | | | [facility] | | | | | | [facility] | | | | | | [facility] - | | | | | | LABORATORY | | + + + + + + | % | 0.1 | 0.0 - 5.0 % | [facility] | | | Eosinophils | | | [facility] | | | | | | [facility] | | | | | | CENTER - | | | | | | LABORATORY | | + + + + + + | % Basophils | 0.4 | 0.0 - 1.0 % | [facility] | | | | | | [facility] | | | | | | [facility] | | | | | | CENTER - | | | | | | LABORATORY | | + + + + + + | Absolute | 17.70 (H) | 1.80 - 8.50 | [facility] | | | Neutrophils | | K/uL | [facility] | | | | | | [facility] | | | | | | CENTER - | | | | | | LABORATORY | | + + + + + + | Absolute | 1.60 | 0.60 - 3.20 | [facility] | | | Lymphocytes | | K/uL | [facility] | | | | | | [facility] | | | | | | CENTER - | | | | | | LABORATORY | | + + + + + + | Absolute | 0.90 | 0.00 - 1.00 | [facility] | | | Monocytes | | K/uL | [facility] | | | | | | [facility] | | | | | | CENTER - | | | | | | LABORATORY | | + + + + + + | Absolute | 0.00 | 0.00 - 0.40 | [facility] | [...] | Basophils | | K/uL | [facility] | | | | | | MEDICAL [...] [address] | [place] | [phone] | | [facility] | | [address] | | | - LABORATORY | | | | + + + + + Basic Metabolic Panel (04/10/2018 5:28 AM PDT) + + + + + + | Component | Value | Ref Range | Performed | Pathologist | | | | | At | Signature | + + + + + + | Na | 135 (L) | 136 - 149 | [facility] | | | | | mmol/L | [facility] | | | | | | [facility] | | | | | | CENTER - | | | | | | LABORATORY | | + + + + + + | K | 3.5 | 3.5 - 5.1 | [facility] | | | | | mmol/L | [facility] | | | | | | MEDICAL | | | | | | CENTER - | | | | | | LABORATORY | | + + + + + + | Cl | 104 | 98 - 109 mmol/L | [facility] [...] + + + | Anion Gap | 7 | 3 - 16 mmol/L | [facility] | | | | | | [facility] | | | | | | [facility]ICAL | | | | | | CENTER - | | | | | | LABORATORY | | + + + + + + | Glucose | 140 (H) | 70 - 109 mg/dL | [facility] | | | | | | [facility] | | | | | | [facility] | | | | | | CENTER - | | | | | | LABORATORY | | + + + + + + | BUN | 15 | 7 - 18 mg/dL | [facility] | | | | | | [facility] | | | | | | MEDICAL | | | | | | CENTER - | | | | | | LABORATORY | | + + + + + + | Creatinine | 0.86 | 0.60 - 1.30 | [facility] | | | | | mg/dL | [facility] | | | | | | MEDICAL | | | | | | CENTER - | | | | | | LABORATORY | | + + + + + + | eGFR if not | >60Comment: GLOMERULAR | >=60 | [facility] | | | | FILTRATION | mL/min/1.73m2 | [facility] | | | [facility] | RATE,ESTIMATED | | MEDICAL | | | | mL/min/1.33g4Vbqh than | | CENTER - | | [...] + + + + | Calcium | 8.8 | 8.3 - 10.5 | [facility] | | | | | mg/dL | [facility] | | | | | | MEDICAL | | | | | | CENTER - | | | | | | LABORATORY | | + + + + + + | BUN/Creatin | 17.4 | | [facility] | | | ine [...] + | [facility] | [address] | [place] | [phone] | | [facility] | | [address] | | | - LABORATORY | | | | + + + + + CBC no Differential (04/09/2018 5:14 PM PDT) + + + + + + | Component | Value | Ref Range | Performed | Pathologist | | | | | At | Signature | + + + + + + | WBC | 19.8 (H) | 4.0 - 11.0 K/uL | [facility] | | | | | | [facility] | | | | | | MEDICAL | | | | | | CENTER - | | | | | | LABORATORY | | + + + + + + | RBC | 4.35 | 3.70 - 5.20 | [facility] | | | | | M/uL | [facility] | | | | | | MEDICAL | | | | | | CENTER - | | | | | | LABORATORY | | + + + + + + | Hemoglobin | 14.2 | 11.5 - 16.0 | [facility] | | | | | g/dL | [facility] | | | | | | MEDICAL | | | | | | CENTER - | | | | | | LABORATORY | | + + + + + + | Hematocrit | 40.7 | 34.0 - 47.0 % | [facility] | | | | | | [facility] | | | | | | MEDICAL | | | | | | CENTER - | | | | | | LABORATORY | | + + + + + + | MCV | 93.5 | 83.0 - 101.0 fL | [facility] | | | | | | [facility] | | | | | | MEDICAL | | | | | | CENTER - | | | | | | LABORATORY | | + + + + + + | MCH | 32.6 | 28.0 - 35.0 pg | [facility] [...] + + + + | RDW-CV | 13.0 | <15.0 % | [facility] | | | | | | [facility] | | | | | | MEDICAL | | | | | | CENTER - | | | | | | LABORATORY | | + + + + + + | Platelet | 336 | 140 - 440 K/uL | [facility] | | | Count | | | [facility] | | | | | | MEDICAL | | | | | | CENTER - | | | | | | LABORATORY | | + + + + + + | MPV | 8.6 | fL | [facility] | | | [...] ST. | [address] | [place] | [phone] | | [facility] | | [address] | | | - LABORATORY | | | | + + + + + Type and Screen (04/09/2018 8:34 AM PDT) + + + + + + | Component | Value | Ref Range | Performed | Pathologist | | | | | At | Signature | + + + + + + | ABO | A | | [facility] | | | | | | [facility] | | | | | | MEDICAL | | | | | | CENTER - | | | | | | BLOOD BANK | | + + + + + + | Rh Type | Positive | | [facility] | | | | | | [facility] | | | | | | MEDICAL | | | | | | CENTER - | | | | | | BLOOD BANK | | + + + + + + | Antibody | Negative | | [facility] | | | Screen | | | [facility] | | | | | | MEDICAL | | | | | | CENTER - | | | | | | BLOOD BANK | | + + + + + + + + | Specimen | + + | Blood | + + + + + + + | Performing | Address | City/State/Zipcode | Phone Number | | Organization | | | | + + + + + | [facility] | [address] | [place], [place] | | | [facility] | | [address] | | | - BLOOD BANK | | | | + + + + + Surgical Pathology Exam (04/09/2018 12:00 AM PDT) + + | Specimen | + + | | + + + + + | Narrative | Performed At | + + + | SPECIMEN(S): A RIGHT KIDNEY SPECIMEN SOURCE: A. 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 - Dilated ureter with benign | | | features. - Negative for evidence of neoplasia. JVR:[facility]:C2NR | | | GROSS DESCRIPTION: The specimen is labeled "Samreen Zaragoza, right | | | kidney". Submitted in formalin is a 303 gm, 14.5 x 11 x 4.5 cm | | | kidney". The serosal surface is inked majo. The specimen is bivalved | | | revealing a cystic and atrophic kidney. Multiple cortical cysts are | | | present measuring up to 2.5 cm. These contain clear fluid and in some | | | cases grainy yellow to white-baird material up to 0.2 cm in maximum | | | dimension. Near the areas of the cyst, the cortex is thinned to 0.2 | | | cm. There is an attached 4 cm segment of ureter which is markedly | | | dilated. The central collecting system is dilated. Clinical Trials Data Coordinator | | | sections are submitted in eight cassettes. Block Ulloa: (A1) | | | Vessel near renal hilum margin and ureter at margin (A2-A6) | | | Clinical Trials Data Coordinator sections of atrophic cystic kidney (A7-A8) Renal | | | sinus JVR:[facility] MICROSCOPIC EXAMINATION: Histologic | | | sections of all submitted blocks are examined by light microscopy. | | | These findings, together with the gross examination, support the | | | pathologic diagnosis. PERFORMING LABORATORY: Tissue processing | | | and slide preparation were performed by [employer], [address] | | [facility] [address], [place] [address] (Fitting Room Operator: Remington | | | Dina Lazcano; CLIA#: [id number]). Professional interpretation was | | | performed by [employer], [facility] | | | Branch, [address] [facility] [place] [address] (Fitting Room Operator: | | | Remington Lazcano M.D.; [facility]#: [id number]). Diagnostician: Remington Smith | | Cole Lazcano MD Pathologist Electronically Signed 04/13/2018 | | + + + + +---------+ + + | Performing | Address | City/State/Zipcode | Phone Number | | Organization | | | | + +---------+ + + | [facility] | | | | | [facility] | | | | + +---------+ + + LABS - EXTERNAL SCAN (04/06/2018 12:00 AM PDT) + + + | Narrative | Performed At | + + + | Ordered by an | | | unspecified provider. | | + + + documented in this encounter Visit Diagnoses + + | Diagnosis | + + | Recurrent UTI Urinary tract infection, site not specified | + + | Hydronephrosis with ureteral stricture, not elsewhere classified | + + | Staghorn calculus Calculus of kidney | + + | Atrophic kidney Renal sclerosis, unspecified | + + documented in this encounter Administered Medications + +--------+ +--------+------+------+ | Medication Order | MAR | Action | Dose | Rate | Site | | | Action | Date | | | | + +--------+ +--------+------+------+ | acetaminophen (TYLENOL) tablet | Given | 04/14/20 | 650 mg | | | | 650 mg 650 mg, Oral, EVERY 8 | | 18 6:42 | | | | | HOURS (3 times per day), First | | AM PDT | | | | | dose on 04/12/18 at 1400 | | | | | | + +--------+ +--------+------+------+ +-------+ +--------+---+---+ | Given | 04/13/20 | 650 mg | | | | | 18 8:48 | | | | | | PM PDT | | | | +-------+ +--------+---+---+ | Given | 04/13/20 | 650 mg | | | | | 18 2:53 | | | | | | PM PDT | | | | +-------+ +--------+---+---+ +---+---+ | | | +---+---+ + +-------+ +--------+---+---+ | acetaminophen (TYLENOL) tablet | Given | 04/09/20 | 975 mg | | | | 975 mg 975 mg, Oral, ONCE, Angelita | | 18 8:35 | | | | | 04/09/18 at 0845, For 1 dose, | | AM PDT | | | | | Pre-op | | | | | | + +-------+ +--------+---+---+ +---+---+ | | | +---+---+ + +-------+ +--------+---+---+ | albuterol 2.5 mg/3 mL nebulizer | Given | 04/12/20 | 2.5 mg | | | | solution 2.5 mg 2.5 mg, | | 18 8:52 | | | | | Nebulization, RT EVERY 4 HOURS | | PM PDT | | | | | PRN, Shortness of Breath, | | | | | | | Starting Fri04/10/18 at 1503, RT | | | | | | | will administer., | | | | | | + +-------+ +--------+---+---+ +-------+ +--------+---+---+ | Given | 04/12/20 | 2.5 mg | | | | | 18 12:52 | | | | | | AM PDT | | | | +-------+ +--------+---+---+ +---+---+ | | | +---+---+ + +-------+ +--------+---+---+ | budesonide (PULMICORT) 0.5 mg/2 | Given | 04/14/20 | 0.5 mg | | | | mL nebulizer solution 0.5 mg | | 18 7:35 | | | | | 0.5 mg, Nebulization, RT BID, | | AM PDT | | | | | First dose on Fri04/10/18 at | | | | | | | 2100, RT will administer. Shake | | | | | | | well. Protect from light. Rinse | | | | | | | mouth after use., | | | | | | + +-------+ +--------+---+---+ +-------+ +--------+---+---+ | Given | 04/13/20 | 0.5 mg | | | | | 18 9:17 | | | | | | PM PDT | | | | +-------+ +--------+---+---+ | Given | 04/12/20 | 0.5 mg | | | | | 18 8:52 | | | | | | PM PDT | | | | +-------+ +--------+---+---+ +---+---+ | | | +---+---+ + +-------+ +--------+---+---+ | cephalexin (KEFLEX) capsule 500 | Given | 04/14/20 | 500 mg | | | | mg 500 mg, Oral, 3 TIMES DAILY, | | 18 8:31 | | | | | First dose on Fri04/10/18 at | | AM PDT | | | | | 0900, Indications: UTI - LOWER | | | | | | + +-------+ +--------+---+---+ +-------+ +--------+---+---+ | Given | 04/13/20 | 500 mg | | | | | 18 8:48 | | | | | | PM PDT | | | | +-------+ +--------+---+---+ | Given | 04/13/20 | 500 mg | | | | | 18 2:53 | | | | | | PM PDT | | | | +-------+ +--------+---+---+ +---+---+ | | | +---+---+ + +---------+ +---+-------+---+ | dextrose 5% and sodium chloride | New Bag | 04/12/20 | | 100 | | | 0.9% (D5 NS) infusion at 100 | | 18 9:12 | | mL/hr | | | mL/hr, Intravenous, CONTINUOUS, | | AM PDT | | | | | Starting [facility] 04/09/18 at 1700, | | | | | | | Post-op/Phase II | | | | | | + +---------+ +---+-------+---+ +---------+ +---+-------+---+ | New Bag | 04/11/20 | | 100 | | | | 18 11:10 | | mL/hr | | | | PM PDT | | | | +---------+ +---+-------+---+ | New Bag | 04/11/20 | | 100 | | | | 18 10:12 | | mL/hr | | | | AM PDT | | | | +---------+ +---+-------+---+ +---+---+ | | | +---+---+ + +-------+ +--------+---+---+ | dilTIAZem (CARDIZEM CD) 24 hr | Given | 04/14/20 | 120 mg | | | | capsule 120 mg 120 mg, Oral, | | 18 8:31 | | | | | DAILY, First dose on 04/12/18 | | AM PDT | | | | | at 1030 | | | | | | + +-------+ +--------+---+---+ +-------+ +--------+---+---+ | Given | 04/13/20 | 120 mg | | | | | 18 9:31 | | | | | | AM PDT | | | | +-------+ +--------+---+---+ | Given | 04/12/20 | 120 mg | | | | | 18 11:32 | | | | | | AM PDT | | | | +-------+ +--------+---+---+ +---+---+ | | | +---+---+ + +-------+ +--------+---+---+ | docusate sodium (COLACE) | Given | 04/14/20 | 100 mg | | | | capsule 100 mg 100 mg, Oral, 2 | | 18 8:31 | | | | | TIMES DAILY, First dose on Fri | | AM PDT | | | | | 04/14/18 at 0900, Swallow capsule | | | | | | | whole., | | | | | | + +-------+ +--------+---+---+ + +---+ | | | + +---+ | docusate-senna (SENOKOT-S) | | | 50-8.6 mg per tablet 2 tablet 2 | | | tablet, Oral, 2 TIMES DAILY PRN, | | | Constipation, Starting Sun | | | 04/12/18 at 1100 | | + +---+ | | | + +---+ + +-------+ +--------+---+---+ | fentaNYL (PF) injection 25-50 | Given | 04/09/20 | 25 mcg | | | | mcg 25-50 mcg, Intravenous, | | 18 3:11 | | | | | EVERY 5 MIN PRN, Pain, Starting | | PM PDT | | | | | Angelita 04/09/18 at 1359, Maximum | | | | | | | total dose 250 mcg. PACU IV | | | | | | | Narcotic Priority: Only use | | | | | | | fentanyl for immediate post-op | | | | | | | pain (one dose) or breakthrough | | | | | | | pain when any other IV narcotics | | | | | | | ordered have been ineffective (if | | | | | | | ordered). If both morphine and | | | | | | | hydromorphone are ordered, use | | | | | | | morphine first, and use | | | | | | | hydromorphone if morphine | | | | | | | ineffective., Recovery/Phase I | | | | | | + +-------+ +--------+---+---+ +---+---+ | | | +---+---+ + +-------+ +--------+---+---+ | gabapentin (NEURONTIN) capsule | Given | 04/14/20 | 100 mg | | | | 100 mg 100 mg, Oral, 3 TIMES | | 18 8:30 | | | | | DAILY, First dose on 04/12/18 | | AM PDT | | | | | at 1400 | | | | | | + +-------+ +--------+---+---+ +-------+ +--------+---+---+ | Given | 04/13/20 | 100 mg | | | | | 18 8:48 | | | | | | PM PDT | | | | +-------+ +--------+---+---+ | Given | 04/13/20 | 100 mg | | | | | 18 2:53 | | | | | | PM PDT | | | | +-------+ +--------+---+---+ +---+---+ | | | +---+---+ + +-------+ +--------+---+---+ | gabapentin (NEURONTIN) capsule | Given | 04/09/20 | 600 mg | | | | 600 mg 600 mg, Oral, ONCE, Angelita | | 18 8:35 | | | | | 04/09/18 at 0830, For 1 dose, | | AM PDT | | | | | Pre-op | | | | | | + +-------+ +--------+---+---+ +---+---+ | | | +---+---+ + +-------+ +---------+---+---+ | HYDROcodone-acetaminophen | Given | 04/10/20 | 2 | | | | (NORCO) 5-325 mg per tablet 1-2 | | 18 7:48 | tablets | | | | tablet 1-2 tablet, Oral, EVERY 4 | | AM PDT | | | | | HOURS PRN, Pain, Starting Angelita | | | | | | | 04/09/18 at 1636, For 24 hours, If | | | | | | | ineffective use [place] 10/325 if | | | | | | | ordered. If not tolerated, use | | | | | | | Percocet then Oxycodone if | | | | | | | ordered., Anesthesiology | | | | | | | approved? Yes, Post-op/Phase II | | | | | | + +-------+ +---------+---+---+ +-------+ + +---+---+ | Given | 04/09/20 | 1 tablet | | | | | 18 10:05 | | | | | | PM PDT | | | | +-------+ + +---+---+ | Given | 04/09/20 | 1 tablet | | | | | 18 6:56 | | | | | | PM PDT | | | | +-------+ + +---+---+ +---+---+ | | | +---+---+ + +-------+ +---------+---+---+ | HYDROmorphone (DILAUDID) | Given | 04/10/20 | 0.25 mg | | | | injection 0.25-1 mg 0.25-1 mg, | | 18 2:44 | | | | | Intravenous, EVERY 2 HOURS PRN, | | PM PDT | | | | | Pain, Starting [facility] 04/09/18 at | | | | | | | 1636, For 24 hours, Use IV | | | | | | | morphine first if ordered. Slow | | | | | | | IV push, not faster than 0.25 | | | | | | | mg/minute. If ineffective or not | | | | | | | tolerated and unable to take oral | | | | | | | opioid - contact MD., | | | | | | | Anesthesiology approved? Yes, | | | | | | | Post-op/Phase II | | | | | | + +-------+ +---------+---+---+ +---+---+ | | | +---+---+ + +-------+ +-------+---+---+ | ketorolac (TORADOL) injection | Given | 04/09/20 | 15 mg | | | | 15 mg 15 mg, Intravenous, EVERY | | 18 3:03 | | | | | 6 HOURS PRN, Pain, Starting Angelita | | PM PDT | | | | | 04/09/18 at 1427, For 5 days, | | | | | | | Recovery/Phase I | | | | | | + +-------+ +-------+---+---+ +---+---+ | | | +---+---+ + +---------+ [...] | | +---+---+ + +-------+ +------+---+---+ | LORazepam (ATIVAN) tablet 2 mg | Given | 04/14/20 | 2 mg | | | | 2 mg, Oral, EVERY 6 HOURS PRN, | | 18 8:29 | | | | | Anxiety, Starting 04/11/18 at | | AM PDT | | | | | 1822 | | | | | | + +-------+ +------+---+---+ +-------+ +------+---+---+ | Given | 04/14/20 | 2 mg | | | | | 18 1:08 | | | | | | AM PDT | | | | +-------+ +------+---+---+ | Given | 04/13/20 | 2 mg | | | | | 18 12:14 | | | | | | PM PDT | | | | +-------+ +------+---+---+ +---+---+ | | | +---+---+ + +-------+ +--------+---+---+ | magnesium hydroxide (MILK OF | Given | 04/13/20 | 30 mLs | | | | MAGNESIA) 400 mg/5 mL suspension | | 18 12:28 | | | | | 30 mL 30 mL, Oral, NIGHTLY PRN, | | AM PDT | | | | | Constipation, Starting Fri | | | | | | | 04/10/18 at 0810, Benjy jade, | | | | | | + +-------+ +--------+---+---+ +-------+ +--------+---+---+ | Given | 04/10/20 | 30 mLs | | | | | 18 11:42 | | | | | | PM PDT | | | | +-------+ +--------+---+---+ +---+---+ | | | +---+---+ + +-------+ +------+---+---+ | nalbuphine (NUBAIN) injection | Given | 04/10/20 | 5 mg | | | | 2.5-5 mg 2.5-5 mg, Intravenous, | | 18 12:51 | | | | | EVERY 4 HOURS PRN, Itching, | | AM PDT | | | | | Starting [facility] 04/09/18 at 1424, For | | | | | | | 24 hours, For itching, use the | | | | | | | following sequence if meds are | | | | | | | ordered: Give nalbuphine first. | | | | | | | If maximum dose given or | | | | | | | ineffective, give | | | | | | | diphenhydramine, Post-op/Phase II | | | | | | + +-------+ +------+---+---+ +-------+ +------+---+---+ | Given | 04/09/20 | 5 mg | | | | | 18 2:34 | | | | | | PM PDT | | | | +-------+ +------+---+---+ +---+---+ | | | +---+---+ + +-------+ +------+---+---+ | ondansetron (ZOFRAN ODT) | Given | 04/09/20 | 8 mg | | | | disintegrating tablet 8 mg 8 mg, | | 18 8:36 | | | | | Oral, ONCE, [facility] 04/09/18 at 0830, | | AM PDT | | | | | For 1 dose, Please administer in | | | | | | | pre-op prior to procedure, | | | | | | | Pre-op | | | | | | + +-------+ +------+---+---+ +---+---+ | | | +---+---+ + +-------+ +------+---+---+ | ondansetron (ZOFRAN) injection | Given | 04/10/20 | 4 mg | | | | 4 mg 4 mg, Intravenous, EVERY 6 | | 18 4:14 | | | | | HOURS PRN, Nausea, Vomiting, | | PM PDT | | | | | Starting [facility] 04/09/18 at 1636, For | | | | | | | 24 hours, First line agent, | | | | | | | Post-op/Phase II | | | | | | + +-------+ +------+---+---+ +-------+ +------+---+---+ | Given | 04/10/20 | 4 mg | | | | | 18 2:43 | | | | | | AM PDT | | | | +-------+ +------+---+---+ | Given | 04/09/20 | 4 mg | | | | | 18 6:43 | | | | | | PM PDT | | | | +-------+ +------+---+---+ +---+---+ | | | +---+---+ + +-------+ +-------+---+---+ | oxyCODONE (ROXICODONE) tablet | Given | 04/13/20 | 10 mg | | | | 10 mg 10 mg, Oral, EVERY 4 HOURS | | 18 12:23 | | | | | PRN, Pain, Starting 04/12/18 | | AM PDT | | | | | at 1659, First dose must be the | | | | | | | lowest dose, can titrate to | | | | | | | effective dose by repeat of | | | | | | | lowest dose every 60 minutes prn | | | | | | | pain, may not exceed maximum dose | | | | | | | ordered per interval. Use Pasero | | | | | | | Sedation Scale., Post-op/Phase | | | | | | | II | | | | | | + +-------+ +-------+---+---+ +-------+ +-------+---+---+ | Given | 04/12/20 | 10 mg | | | | | 18 5:36 | | | | | | PM PDT | | | | +-------+ +-------+---+---+ +---+---+ | | | +---+---+ + +-------+ +------+---+---+ | oxyCODONE (ROXICODONE) tablet 5 | Given | 04/12/20 | 5 mg | | | | mg 5 mg, Oral, EVERY 4 HOURS | | 18 1:23 | | | | | PRN, Pain, Starting 04/12/18 | | PM PDT | | | | | at 0930, First dose must be the | | | | | | | lowest dose, can titrate to | | | | | | | effective dose by repeat of | | | | | | | lowest dose every 60 minutes prn | | | | | | | pain, may not exceed maximum dose | | | | | | | ordered per interval. Use Pasero | | | | | | | Sedation Scale., Post-op/Phase | | | | | | | II | | | | | | + +-------+ +------+---+---+ +---+---+ | | | +---+---+ + +-------+ +------+---+---+ | oxyCODONE (ROXICODONE) tablet 5 | Given | 04/14/20 | 5 mg | | | | mg 5 mg, Oral, EVERY 2 HOURS, | | 18 6:42 | | | | | First dose on 04/13/18 at 0845 | | AM PDT | | | | + +-------+ +------+---+---+ +-------+ +------+---+---+ | Given | 04/14/20 | 5 mg | | | | | 18 12:12 | | | | | | AM PDT | | | | +-------+ +------+---+---+ | Given | 04/13/20 | 5 mg | | | | | 18 8:48 | | | | | | PM PDT | | | | +-------+ +------+---+---+ +---+---+ | | | +---+---+ + +-------+ +------+---+---+ | oxyCODONE (ROXICODONE) tablet 5 | Given | 04/14/20 | 5 mg | | | | mg 5 mg, Oral, EVERY 4 HOURS | | 18 12:02 | | | | | PRN, Pain, prn breakthrough pain, | | PM PDT | | | | | Starting 04/14/18 at 0756 | | | | | | + +-------+ +------+---+---+ +-------+ +------+---+---+ | Given | 04/14/20 | 5 mg | | | | | 18 8:30 | | | | | | AM PDT | | | | +-------+ +------+---+---+ +---+---+ | | | +---+---+ + +-------+ +-------+---+---+ | oxyCODONE (ROXICODONE) tablet | Given | 04/12/20 | 15 mg | | | | 5-20 mg 5-20 mg, Oral, EVERY 3 | | 18 8:49 | | | | | HOURS PRN, Pain, Starting Angelita | | AM PDT | | | | | 04/09/18 at 1636, First dose must | | | | | | | be the lowest dose, can titrate | | | | | | | to effective dose by repeat of | | | | | | | lowest dose every 60 minutes prn | | | | | | | pain, may not exceed maximum dose | | | | | | | ordered per interval. Use Pasero | | | | | | | Sedation Scale., Post-op/Phase | | | | | | | II | | | | | | + +-------+ +-------+---+---+ +-------+ +-------+---+---+ | Given | 04/12/20 | 15 mg | | | | | 18 12:36 | | | | | | AM PDT | | | | +-------+ +-------+---+---+ | Given | 04/11/20 | 15 mg | | | | | 18 4:59 | | | | | | PM PDT | | | | +-------+ +-------+---+---+ +---+---+ | | | +---+---+ + +-------+ +---------+---+---+ | promethazine (PHENERGAN) (IV | Given | 04/11/20 | 6.25 mg | | | | ONLY) injection 6.25-12.5 mg | | 18 10:12 | | | | | 6.25-12.5 mg, Intravenous, EVERY | | AM PDT | | | | | 6 HOURS PRN, Nausea, Vomiting, | | | | | | | Starting 04/10/18 at 0810, | | | | | | | Vesicant. When ordered IV push: | | | | | | | Dilute to 10-20mL with NS. Give | | | | | | | over 2-3 minutes into large vein. | | | | | | | Do not give in hand/wrist or | | | | | | | foot/ankle vein. Max dose 12.5mg | | | | | | | if giving peripherally., | | | | | | + +-------+ +---------+---+---+ +-------+ +---------+---+---+ | Given | 04/11/20 | 6.25 mg | | | | | 18 4:38 | | | | | | AM PDT | | | | +-------+ +---------+---+---+ | Given | 04/10/20 | 6.25 mg | | | | | 18 4:41 | | | | | | PM PDT | | | | +-------+ +---------+---+---+ +---+---+ | | | +---+---+ documented in this encounter
--- OUTSIDE RECORDS SUMMARY | ~2019-11-08 | XMS | Encounter Summary ---
Demographics + + + | Address | [address] | | | [place] [address] | + + + | Home Phone | | + + + | Preferred Language | Unknown | + + + | Marital Status | | + + + | Church Affiliation | Unknown | + + + | Race | Unknown | + + + | Ethnic Group | Unknown | + + + Author + + + | Author | [facility] | | | and [place] | + + + | Organization | [facility] | | [...] #3 | | | | | , [address] | | + + + + + Care Team Providers + +------+ + | Care Learning Administrator Name | Role | Phone | + +------+ + PCP | Unavailable | + +------+ + Encounter Details +--------+ + + + + | Date | Type | Department | Care Team | Description | +--------+ + + + + | 07/24/ | Hospital | [facility] | | | | 2006 | Encounter | [facility] EM[facility]Y | | | | | | CENTER [address] | | | | | | [place] | | | | | | [address] | | | | | | [phone] | | | +--------+ + + + [...] | 12/02/ | Office | Gastroenterology | [facility], | | | 2020 | Visit | | CRISTHIAN Carbone [address] | | | | | | [address] | | | | | | [place] | | | | | | [address] | | | | | | | | +--------+---------+ + + + documented as of this encounter Visit Diagnoses Not on filedocumented in this encounter"
--- OUTSIDE RECORDS SUMMARY | ~2019-11-08 | XMS | Encounter Summary ---
Demographics + + + | Address | [address] | | | [place] [address] | + + + | Home Phone | | + + + | Preferred Language | Unknown | + + + | Marital Status | Single | + + + | Taoist Affiliation | CHR | + + + [...] | | | | | [place] [address] | | + + + + + Care Team Providers + +------+ + | Care Field Service Consultant Name | Role | Phone | + +------+ + | Rona Lyons MD | PCP | | + +------+ + Reason for Visit +--------+ + | Reason | Comments | +--------+ + | Other | per phone message-she wants to know where to get 14FR catheters | +--------+ + Encounter Details +--------+ + + + + | Date | Type | Department | Care Team | Description | +--------+ + + + + | 10/02/ | Telephone | Urology Adult | Rn, [address] | Other (per phone | | 2005 | | [address] | [place] | message-she wants to | | | | Mailcode: CH10U | Road [place], [place] | know where to get | | | | [facility] | [address] | 14FR [facility]) | | | | and Healing, | | | | | | Building [address], | | | | | | Floor [place], [place] | | | | | | [address] | | | | | | [phone] | | | +--------+ + + + [...]
--- OUTSIDE RECORDS SUMMARY | ~2019-11-08 | XMS | Encounter Summary ---
Demographics + + + | Address | [address] | | | [place] [address] | + + + | Home Phone | | + + + | Preferred Language | Unknown | + + + | Marital Status | Single | + + + | Alevism Affiliation | CHR | + + + [...] | | | | | [place] [address] | | + + + + + Care Team Providers + +------+ + | Care Dot Etcher Name | Role | Phone | + +------+ + | Serena Barroso | PCP | | + +------+ + Reason for Visit + + + | Reason | Comments | + + + | Catheter Check | | + + + Encounter Details +--------+ + + + + | Date | Type | Department | Care Team | Description | +--------+ + + + + | 04/20/ | Telephone | Urology Adult | Kristie, | Catheter Check | | 2007 | | [address] | MD [place]inaldo | | | | | Mailcode: CH10U | | | | | | [facility] | | | | | | and [place], | | | | | | [facility] | | | | | | [place], [place] | | | | | | [address] | | | | | | [phone] | | | +--------+ + + + [...]
--- OUTSIDE RECORDS SUMMARY | ~2019-11-08 | XMS | Encounter Summary ---
Demographics + + + | Address | [address] | | | [place] [address] | + + + | Home Phone | | + + + | Preferred Language | Unknown | + + + | Marital Status | | + + + | Anglican Affiliation | Unknown | + + + | Race | Unknown | + + + | Ethnic Group | Unknown | + + + Author + + + | Author | [facility] | | | and [place] | + + + | Organization | [facility] | | | and [...] #3 | | | | | , [address] | | + + + + + Care Team Providers + +------+ + | Care Project Management Professional Name | Role | Phone | + [...] + + | 04/27/ | Office | [facility] | Toi Gonzalez | Atrophic kidney | | 2018 | Visit | [address] | MD Leighann [address] | (Primary Dx); | | | | [place], [place] | [place], [place] | Staghorn calculus; | | | | [address] | [address] | Recurrent UTI | | | | [phone] | | | +--------+---------+ + + + [...] Right Nephrectomy; Surgeon: Toi Gonzalez MD; [facility] nicked bowel, hospitalized x3 weeks SANCHEZ [...] longer present Confirmed by REMINGTON GRANT MD ([id number]) on 04/12/2018 10:25:41 AM Type and Screen Result Value Ref Range ABO A Rh Type Positive Antibody Screen Negative Lab Results Component Value Date CREA 0.69 04/12/2018 Francine Sanford NP's notes were reviewed in clinic today. No Follow-up on file.. CC: Francine Sanford NP, Karely Blue UrologistNatalie, [facility]EN[facility]ronically signed by Anton Gonzalez MD at 04/27/2018 12:44 PM PDTdocumented in this encounter Plan of Treatment +--------+---------+ + + + | Date | Type | Specialty | Care Team | Description | +--------+---------+ + + + | 12/02/ | Office | Gastroenterology | [facility], | | | 2019 | Visit | | CRISTHIAN Carbone [address] | | | | | | [address] | | | | | | [place] | | | | | | [id number] | | | | | | | [...]
--- OUTSIDE RECORDS SUMMARY | ~2019-11-08 | XMS | Encounter Summary ---
Demographics + + + | Address | [address] | | | [place] [address] | + + + | Home Phone | | + + + | Preferred Language | Unknown | + + + | Marital Status | | + + + | Church Affiliation | Unknown | + + + | Race | Unknown | + + + | Ethnic Group | Unknown | + + + Author + + + | Author | [facility] | | | and [place] | + + + | Organization | [facility] | | | and [place] | + + + | Address | Unknown | + + + | Phone | Unavailable | + + + Support + + + + + | Name | Relationship | Address | Phone | + + + + + | Darius Diamond Luis [place] | [address] [address] | | | | | , [address] | | + + + + + Care Team Providers + +------+ + | Care Post Tensioning Ironworker Name | Role | Phone | + [...] | | | | CLINIC [address] | [place], [place] | renal atrophy; | | | | [place], [place] | [address] | Hypertension, | | | | [address] | | unspecified type | | | | [phone] | | | +--------+ + + + [...] [place] | | | | | | [address] | | | | | | | [...] MD | | | | | | ([id number]) on 02/14/2018 | | | | | [...] mL/min/1.73m2 | [facility] | | | [place] | RATE,ESTIMATED | | MEDICAL | | | | mL/min/1.77d8Jvwe than | | CENTER - | | [...] [address] | [place] | [phone] | | [facility] | | [address] | | | - LABORATORY | | [...] [address] | [place] | [phone] | | [facility] | | [address] | | | - LABORATORY | | [...] + | [facility] | [address] | [place] | [phone] | | [facility] | | [address] | | | - LABORATORY | | [...] [address] | [place] | [phone] | | [facility] | | [address] | | | - LABORATORY | | [...]
--- OUTSIDE RECORDS SUMMARY | ~2019-11-08 | XMS | Encounter Summary ---
Demographics + + + | Address | [address] | | | [place] [address] | + + + | Home Phone | | + + + | Preferred Language | Unknown | + + + | Marital Status | | + + + | Lutheran Affiliation | Unknown | + + + | Race | Unknown | + + + | Ethnic Group | Unknown | + + + Author + + + | Author | [facility] | | | and [place] | + + + | Organization | [facility] | | | and [place] | + + + | Address | Unknown | + + + | Phone | Unavailable | + + + Support + + + + + | Name | Relationship | Address | Phone | + + + + + | Darius Diamond | HELEN | [address] | | | | | , [address] | | + + + + + Care Team Providers + +------+ + | Care Sheet Metal Operator Name | Role | Phone | [...] | | Recurrent | Toi | [address] [place] | | | | | UTI | MD Leighann | [place], | | | | | Hematuria, | [address] | [place] [address] | | | | | unspecified | [place] | Phone: | | | | | type | [place] | [phone] | | | | | Procedures | [address] | Fax: | | | | | CT Urogram w | Phone: | [phone] | | | | | wo Contrast | [phone] | | | | | | CHG CT | Fax: | | | | | | SCAN,ABDOMEN | [phone] | | | | | | T AND | | | | | | | PELVIS,COMBO | | | +--------+--------+ + + + + Reason for Visit Diagnostic/Screening (Routine) +--------+--------+ + + + + | Status | Reason | Specialty | Diagnoses / | Referred By | Referred To | | | | | Procedures | Contact | Contact | +--------+--------+ + + + + | Closed | | Radiology | Diagnoses | [place], | [address] | | | | | Recurrent | Toi | [place] | | | | | UTI | MD Leighann | [place], | | | | | Hematuria, | [address] | [place] [address] | | | | | unspecified | [place] | Phone: | | | | | type | [place], [place] | [phone] | | | | | Procedures | [address] | Fax: | | | | | CT Urogram w | Phone: | [phone] | | | | | wo Contrast | [phone] | | | | | | CHG CT | Fax: | | | | | | SCAN,ABDOMEN | [phone] | | | | | | T AND | | | | | | | PELVIS,COMBO | | | +--------+--------+ + + + + Encounter Details +--------+ + + + + | Date | Type | Department | Care Team | Description | +--------+ + + + + | 02/17/ | Hospital | [facility] | Toi Gonzalez | Recurrent UTI; | | 2018 | Encounter | MED CTR [address] | MD Leighann [address] | Hematuria, | | | | [place], | [place] | unspecified type | | | | [place] [address] | [address] | | | | | [phone] | | | +--------+ + + + [...] 1 hour | 1 | 2 | 02/14/20 | | | (BENADRYL) 25 MG | [...] + + +---------+ + + | ALBUTEROL SULFATE | NEBU | | 0 | 07/10/20 | | | IN | | | | 12 | 8 | + + + +---------+ + + | predniSONE | Take 1 pill 13 hours | 3 | 0 | 02/14/20 | | | (DELTASONE) 10 mg | before CT, then 1 | tablet | | 18 | 8 | | tablet | pill 7 hours before | | | | | | | CT then 1 pill 1 | | | | | | | hour before CT | | | | | + + + +---------+ + + documented as of this encounter Plan of Treatment +--------+---------+ + + + | Date | Type | Specialty | Care Team | Description | +--------+---------+ + + + | 12/02/ | Office | Gastroenterology | [facility], | | | 2020 | Visit | | CRISTHIAN Carbone [address] | | | | | | [address] | | | | | | [place] | | | | | | [address] | | | | | | | | +--------+---------+ + + + documented as of this encounter Procedures + +--------+ + + + | Procedure Name | Priori | Date/Time | Associated Diagnosis | Comments | | | ty | | | | + +--------+ + + + | CT UROGRAM W WO | Routin | 02/17/2018 | Recurrent UTI | Results for this | | CONTRAST | e | 11:39 AM | Hematuria, | procedure are in the | | | | PDT | unspecified type | results section. | + +--------+ + + + documented in this encounter Results CT Urogram w wo [...] | Procedure Note | + + | Nura, Rad Results In - 02/17/2018 1:46 PM [...] + + | Performing | Address | City/[facility] | Phone Number | | Organization | | | | + +---------+ + + | [facility] | | | | + +---------+ + + documented in this encounter Visit Diagnoses + + | Diagnosis | + + | Recurrent UTI Urinary tract infection, site not specified | + + | Hematuria, unspecified type | + + documented in this encounter Administered Medications + +--------+ +---------+------+------+ | Medication Order | MAR | Action | Dose | Rate | Site | | | Action | Date | | | | + +--------+ +---------+------+------+ | iohexol (OMNIPAQUE 350) 350 | Given | 02/18/20 | 125 mLs | | | | mg/mL injection 125 mL 125 mL, | | 18 11:40 | | | | | Intravenous, ONCE PRN, Other, For | | AM PDT | | | | | CT Scan, Starting e 02/17/18 at | | | | | | | 1139, For 1 dose, Radiology | | | | | | + +--------+ +---------+------+------+ +---+---+ | | | +---+---+ + +------+ +--------+-------+---+ | sodium chloride 0.9% (NS) bolus | Push | 02/18/20 | 85 mLs | 5100 | | | 85 mL 85 mL, Intravenous, | | 18 11:40 | | mL/hr | | | Administer over 1 Minutes, ONCE | | AM PDT | | | | | PRN, for CT contrast study, | | | | | | | Starting e 02/17/18 at 1139, For | | | | | | | 1 dose, Radiology | | | | | | + +------+ +--------+-------+---+ +---+---+ | | | +---+---+ documented in this encounter"
--- OUTSIDE RECORDS SUMMARY | ~2019-11-08 | XMS | Encounter Summary ---
Demographics + + + | Address | [address] | | | [place] [address] | + + + | Home Phone | | + + + | Preferred Language | Unknown | + + + | Marital Status | Single | + + + | Orthodox Affiliation | CHR | + + [...] | | | | | [place] [address] | | + + + + + Care Team Providers + +------+ + | Care Detail Manager Name | Role | Phone | [...] [address] | Blue Smith MD 9 | | | | | Mailcode: CH10U | [facility] | | | | | [facility] | [address] | | | | | and Healing, | [place] [address] | | | | | Building | [phone] | | | | | Floor [place], [place] | | | | | | [address] | | | | | | [phone] | | | +--------+--------+ + + + [...]
--- OUTSIDE RECORDS SUMMARY | ~2019-11-08 | XMS | Encounter Summary ---
Demographics + + + | Address | [address] | | | [place] [address] | + + + | Home Phone | | + + + | Preferred Language | Unknown | + + + | Marital Status | | + + + | Buddhism Affiliation | Unknown | + + + | Race | Unknown | + + + | Ethnic Group | Unknown | + + + Author + + + | Author | [facility] | | | and [place] | + + + | Organization | [facility] | | | and [...] #3 | | | | | , [address] | | + + + + + Care Team Providers + +------+ + | Care Patrol Man Name | Role | Phone | + +------+ + PCP | Unavailable | + +------+ + Encounter Details +--------+ + + + + | Date | Type | Department | Care Team | Description | +--------+ + + + + | 06/20/ | Hospital | [facility] | Arnie Toney MD | | | 2006 - | Encounter | MED CTR GENERIC IP | [address] [facility] | | | | | CONV DEPT [address] | [place], [place] | | | 06/24/ | | [address] [place], | [address] | | | 2006 | | [place] [address] | | | | | | [phone] | | | +--------+ + + + [...] | 12/02/ | Office | Gastroenterology | [facility], | | | 2019 | Visit | | CRISTHIAN Carbone [address] | | | | | | [address] | | | | | | [place] | | | | | | [address] | | | | | | | | +--------+---------+ + + + documented as of this encounter Visit Diagnoses Not on filedocumented in this encounter"
--- OUTSIDE RECORDS SUMMARY | ~2019-11-08 | XMS | Encounter Summary ---
Demographics + + + | Address | [address] | | | [place] [address] | + + + | Home Phone [...] + | Organization | [facility] | | | [...] #3 | | | | | , [address] | | + + + + + Care Team Providers + +------+ + | Care Attorney Recruiter Name | Role | Phone | + +------+ + PCP | Unavailable | + +------+ + Encounter Details +--------+ + + + + | Date | Type | Department | Care Team | Description | +--------+ + + + + | 10/18/ | [facility] | [facility] | Martine Mcdermott | | | 2006 | Encounter | MED CTR EMERGENCY | MD Pat [address] | | | | | CENTER [address] | [facility], | | | | | [place], [place] | [place] [address] | | | | | [address] | [phone] | | | | | [phone] | | | +--------+ + + + [...] | 12/02/ | Office | Gastroenterology | [facility], | | | 2019 | Visit | | CRISTHIAN Carbone [address] | | | | | | [address] | | | | | | [place] | | | | | | [address] | | | | | | | | +--------+---------+ + + + documented as of this encounter Visit Diagnoses Not on filedocumented in this encounter"
--- OUTSIDE RECORDS SUMMARY | ~2019-11-08 | XMS | Encounter Summary ---
Demographics + + + | Address | [address] | | | [place] [address] | + + + | Home Phone [...] | | | | | [place] [address] | | + + + + + Care Team Providers + +------+ + | Care Soa Integration Architect Name | Role | Phone | [...] CH10U | | | | | | [facility] | | | | | | and Healing, | | | | | | Building [address], | | | | | | Floor [place], [place] | | | | | | [address] | | | | | | [phone] | | | +--------+ + + + [...]
--- OUTSIDE RECORDS SUMMARY | ~2019-11-08 | XMS | Encounter Summary ---
Demographics + + + | Address | [address] | | | [place] [address] | + + + | Home Phone [...] | Organization | [facility] | | | and [place] | + + + | Address | Unknown | + + + | Phone | Unavailable | + + + Support + + + + + | Name | Relationship | Address | Phone | + + + + + | Darius Diamond C[place] | [address] | | | | | , [address] | | + + + + + Care Team Providers + +------+ + | Care Stain Sprayer Name | Role | Phone | + [...] [address] | | | | | [phone] | [place] [address] | | +--------+ + + + + [...] | 12/02/ | Office | Gastroenterology | [facility], | | | 2020 | Visit | | CRISTHIAN Carbone [address] | | | | | | [address] | | | | | | [place] | | | | | | [address] | | | | | | | [...] for comparison only - no result from [place]. | [facility] | + + + + +---------+ + + | Performing | Address | City/State/Zipcode | Phone Number | | Organization | | | | + +---------+ + + | [facility] | | | | + +---------+ + + documented in this encounter Visit Diagnoses Not on filedocumented in this encounter"
--- OUTSIDE RECORDS SUMMARY | ~2019-11-08 | XMS | Encounter Summary ---
Demographics + + + | Address | [address] | | | [place] [address] | + + + | Home Phone [...] | | | | | [place] [address] | | + + + + + Care Team Providers + +------+ + | Care Unclaimed Property Manager Name | Role | Phone | + +------+ + | Serena Barroso | PCP | | + +------+ + Encounter Details +--------+ + + + + | Date | Type | Department | Care Team | Description | +--------+ + + + + | 05/30/ | Telephone | Urology Oncology | Hollie Logan, | | | 2009 | | [address] | Blue Smith MD [address] | | | | | Mailcode: CH10U | [facility] | | | | | [facility] | [address] | | | | | and Healing, | [place] [address] | | | | | [facility] | [phone] | | | | | Floor [place], [place] | | | | | | [address] | | | | | | [phone] | | | +--------+ + + + [...]
--- OUTSIDE RECORDS SUMMARY | ~2019-11-08 | XMS | Encounter Summary ---
Demographics + + + | Address | [address] | | | [place] [address] | + + + | Home Phone | | + + + | Preferred Language | Unknown | + + + | Marital Status | | + + + | Confucianism Affiliation | Unknown | + + + | Race | Unknown | + + + | Ethnic Group | Unknown | + + + Author + + + | Author | [facility] | | | and [place] | + + + | Organization | [facility] | | [...] #3 | | | | | , [address] | | + + + + + Care Team Providers + +------+ + | Care Sanding Machine Tender Name | Role | Phone | + +------+ + | Francine Sanford NP | PCP | | + +------+ + Reason for Visit + + + | Reason | Comments | + + + | Follow-up | right kidney atrophy. | + + + | Pre-op Exam | | + + + Encounter Details +--------+---------+ + + + | Date | Type | Department | Care Team | Description | +--------+---------+ + + + | 04/02/ | Office | [facility] | Toi Gonzalez | Atrophic kidney | | 2018 | Visit | [address] | MD Leighann [address] | (Primary Dx); | | | | [place], [place] | [place], [place] | Microscopic | | | | [phone] | [address] | hematuria; Pyuria; | | | | [phone] | | Recurrent UTI | +--------+---------+ + + + Social History [...] + + + | Blood Pressure | 138/86 | 04/02/2018 10:52 AM | | | | | PDT | | + + + + + | Pulse | 110 | 04/02/2018 10:52 AM | | | | | PDT | | + + + + + | Temperature | - | - | | + + + + + | Respiratory Rate | 18 | 04/02/2018 10:52 AM | | | | | PDT | | + + + + + | Oxygen Saturation | - | - | | + + + + + | Inhaled Oxygen | - | - | | | Concentration | | | | + + + + + | Weight | 82.3 kg (181 lb 7 | 04/02/2018 10:52 AM | | | | oz) | PDT | | + + + + + | Height | 162.6 cm (5' 4") | 04/02/2018 10:52 AM | | | | | PDT | | + + + + + | Body Mass Index | 31.14 | 04/02/2018 10:52 AM | | | | | PDT | | + + + + + documented in this encounter Patient Instructions Patient Instructions Amina Jaquez RN - 04/02/2018 10:30 AM PDTPreoperative Instructi ons Your surgery with Dr. Gonzalez has been scheduled for April 09, 2018 at 9:30 AM at [facility]. Please report to [facility] no later than 8:00 AM. REMEMBER: NOTHING TO EAT OR DRINK AFTER MIDNIGHT April 08, 2018. Take all of your usual medications wi th a sip of water. You will need someone to drive you home after surgery. NO ASPIRIN OR ASPIRIN PRODUCTS, NO FISH OIL OR VITAMIN E FOR ONE WEEK PRIOR TO SURGERY. Ty lenol (acetaminophen) and ibuprofen is OK. You will need to get the following testing done prior to surgery: CBC and BMP. Please go to the [facility] about one week prior to surgery to complete these tests. Call us at [phone] with any questions. [x] Pain management booklet provided to patient. Patient left without being given instructions and getting labs done at [place]. Called cristi maldonado and gave instructions verbally. Faxed lab orders to [facility] [place]. She will g o to [facility] for labs tomorrow. 18 6:16 PM PDT documented in this encounter Progress Notes Toi Gonzalez MD - 04/02/2018 10:30 AM PDTFormatting of this note might be different f rom the original. Chief Complaint Patient presents with Follow-up right kidney atrophy. Pre-op Exam HPI Samreen Zaragoza is a 53 y.o. female patient of Francine Sanford NP here today for a follow up and Pre- Op exam for right kidney atrophy. 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 Has had issues with st ricture of the anastomosis from the right kidney. Chest has a history of recurrent stones a nd recurrent infections She recently underwent nuclear medicine Lasix renogram and was found to have approximately 11% function and very poor drainage. Today she reports no changes in her health. She denies any nausea vomiting fever or chills . Denies any problems catheterizing her kock pouch. Assessment Samreen was seen today for follow-up and pre-op exam. Diagnoses and all orders for this visit: Atrophic kidney Microscopic hematuria - POCT Urinalysis Dipstick Automated - Urinalysis, Microscopic Only, with Culture if Indicated - Culture, Urine; Future Pyuria - POCT Urinalysis Dipstick Automated - Urinalysis, Microscopic Only, with Culture if Indicated - Culture, Urine; Future Recurrent UTI Plan Right open nephrectomy. We discussed that this should decrease her risk of infection as we ll as her stone episodes. We discussed the risks of the surgery including hernia, wound com plications, bowel injury, injury to the kock pouch, need for bowel diversion and need for fu rther procedures. Patient is also underwent lab work indicating that she has indeed quit smoking. 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 Fibromyalgia Hypertension Kidney disease Kidney stones MRSA (methicillin resistant Staphylococcus aureus) Internal Recurrent UTI Urinary retention Wears dentures upper Past Surgical History Past Surgical [...] Vomiting Latex Rash Medications: Current Outpatient Prescriptions: ALBUTEROL SULFATE IN, NEBU (Patient taking differently: every 6 hours as needed.), Dis p: , Rfl: diphenhydrAMINE (BENADRYL) 25 MG capsule, [...] then 1 pill [address] (Patient not taking: Reported on 04/02/2018), Disp: 3 tablet, Rfl: 0 raNITIdine (ZANTAC) 150 MG capsule, Take 150 mg by mouth nightly., Disp: , Rfl: ROS Gen.: No fever no chills GI: No nausea no vomiting Pulmonary: No wheezing or coughing Cardio: No chest pain or shortness of breath Objective BP 138/86 | Pulse 110 | Resp 18 | Ht 1.626 m (5' 4") | Wt 82.3 kg (181 lb 7 oz) | BMI 31.14 kg/m General Appearance: Alert, cooperative, no distress, [...] orders placed or performed in visit on 04/02/18 Urinalysis, Microscopic Only, with Culture if Indicated Result Value Ref Range WBC UA 25-50 (A) 0 - 2 /HPF RBC UA 10-15 (A) 0 - 2 /HPF SQUAMOUS EPITHELIAL UA 5-10 (A) 0 - 2 /LPF BACTERIA UA 3+ (A) Negative /HPF MUCUS UA Present (A) Negative /LPF AMORPHOUS CRYSTALS Moderate (A) None Seen /HPF URINE COMMENT Urine Culture Set Up POCT Urinalysis Dipstick Automated Result Value Ref Range Color, UA, POC Yellow Yellow, Light Yellow Clarity, UA, POC Cloudy Glucose, UA, POC Negative Negative Bilirubin, UA, POC Negative Negative Ketones, UA, POC Negative Negative, 100 mg/dL Specific [place], UA, POC 1.015 1.001 - 1.030 Blood, UA, POC Moderate (A) Negative pH, UA, POC 7.5 5.0, 6.0, 7.0, 8.0, 5.5, 6.5, 7.5 Protein, UA, POC 30 mg/dL (A) Negative Urobilinogen, UA, POC 0.2 0.2, Negative, Normal, < 0.2 mg/dL, 1 mg/dL, < 0.2 E.U./dl, 1.0 E.U./dL, 0.2 mg/dL Nitrite, UA, POC Negative Negative Leukocyte Esterase, UA, POC Large (A) Negative RED SUB UA ICTOTEST Negative REMARK Lab Results Component Value Date CREA 0.81 02/13/2018 Francine Sanford NP's notes were reviewed in clinic today. No Follow-up on file.. CC: Francine Sanford NP, Karely Morehouse Urologist, [place], [facility] signed by Anton Gonzalez MD at 04/02/2018 2:34 PM PDTdocumented in this encounter Plan of Treatment +--------+---------+ + + + | Date | Type | Specialty | Care Team | Description | +--------+---------+ + + + | 12/02/ | Office | Gastroenterology | [facility], | | | 2019 | Visit | | CRISTHIAN Carbone [address] | | | | | | [address] | | | | | | [place] | | | | | | [address] | | | | | | | [...] + + | URINALYSIS, | Routin | 04/02/2018 | Microscopic | Results for this | | MICROSCOPIC ONLY, | e | 9:34 AM | hematuria Pyuria | procedure are in the | | WITH CULTURE IF | | PDT | | results section. | | INDICATED | | | | | + +--------+ + + + | POCT URINALYSIS, | Routin | 04/02/2018 | Microscopic | Results for this | | AUTO WITH CONF | e | 9:34 AM | hematuria Pyuria | procedure are in the | | | | PDT | | results section. | + +--------+ + + + | CULTURE, URINE | Routin | 04/02/2018 | Microscopic | Results for this | | | e | 9:34 AM | hematuria Pyuria | procedure are in the | | | | PDT | | results section. | + +--------+ + + + | LABS - EXTERNAL SCAN | | 03/16/2018 | | Results for this | | | | 12:00 AM | | procedure are in the | | | | PDT | | results section. | + +--------+ + + + documented in this encounter Results LABS - EXTERNAL SCAN (04/06/2018 12:00 AM PDT) + + + | Narrative | Performed At | + + + | Ordered by an | | | unspecified provider. | | + + + Culture, Urine (04/02/2018 9:34 AM PDT) + + + + + + | Component | Value | Ref Range | Performed | Pathologist | | | | | At | Signature | + + + + + + | Culture | >100,000 CFU/ml Mixed | | [facility] | | | | Gram Positive | | [facility] | | | | FloraComment: Suggests | | MEDICAL | | | | contamination with | | CENTER - | | | | urogenital or skin | | LABORATORY | | | | pietro. | | | | + + + [...] + | [facility] | [address] | [place] | [phone] | | [facility] | | [address] | | | - LABORATORY | | | | + + + + + Urinalysis, Microscopic Only, with Culture if Indicated (04/02/2018 9:34 AM PDT) + + + + + + | Component | Value | Ref Range | Performed | Pathologist | | | | | At | Signature | + + + + + + | WBC UA | 25-50 (A) | 0 - 2 /HPF | [facility] | | | | | | [facility] | | | | | | MEDICAL | | | | | | CENTER - | | | | | | LABORATORY | | + + + + + + | RBC UA | 10-15 (A) | 0 - 2 /HPF | [facility] | | | | | | [facility] | | | | | | MEDICAL | | | | | | CENTER - | | | | | | LABORATORY | | + + + + + + | SQUAMOUS | 5-10 (A) | 0 - 2 /LPF | [facility] | | | EPITHELIAL | | | [facility] | | | UA | | | MEDICAL | | | | | | CENTER - | | | | | | LABORATORY | | + + + + + + | BACTERIA UA | 3+ (A) | Negative /HPF | [facility] | [...] + + + + + + | AMORPHOUS | Moderate (A) | None Seen /HPF | [facility] | | | CRYSTALS | | | [facility] | | | | | | MEDICAL | | | | | | CENTER - | | | | | | LABORATORY | | + + + + + + | URINE | Urine Culture Set Up | | [facility] | | | COMMENT | | | [facility] | | [...] [address] | [place] | [phone] | | [facility] | | [address] | | | - LABORATORY | | | | + + + + + POCT Urinalysis Dipstick Automated (04/02/2018 9:34 AM PDT) + + + + + [...] 1.001 - 1.030 | | | | [place], | | | | | | UA, POC | | | | | + + + + + + | Blood, UA, | Moderate (A) | Negative | | | | POC | | | | | + + + + + + | pH, UA, POC | 7.5 | 5.0, 6.0, 7.0, | | | [...] + + | Urine | + + LABS - EXTERNAL SCAN (03/16/2018 12:00 AM PDT) + + + | Narrative | Performed At | + + + | Ordered by an | | | unspecified provider. | | + + + documented in this encounter Visit Diagnoses + + | Diagnosis | + + | Atrophic kidney - Primary Renal sclerosis, unspecified | + + | Microscopic hematuria | + + | Pyuria Other nonspecific finding on examination of urine | + + | Recurrent UTI Urinary tract infection, site not specified | + + documented in this encounter
--- OUTSIDE RECORDS SUMMARY | ~2019-11-08 | XMS | Encounter Summary ---
Demographics + + + | Address | [address] | | | [place] [address] | + + + | Home Phone [...] Organization | [facility] | | | and [place] | + + + | Address | Unknown | + + + | Phone | Unavailable | + + + Support + + + + + | Name | Relationship | Address | Phone | + + + + + | Darius Fields | ECON | [address] | | | | | , [address] | | + + + + + Care Team Providers + +------+ + | Care Safety Representative Name | Role | Phone | + +------+ + PCP | Unavailable | + +------+ + Encounter Details +--------+ + + + + | Date | Type | Department | Care Team | Description | +--------+ + + + + | 01/14/ | Hospital | [facility] | | | | 2007 - | Encounter | MED CTR EMERGENCY | | | | | | [place] | | | | 01/24/ | | [place] | | | | 2007 | | [address] | | | | | | [phone] | | | +--------+ + + + [...] | 12/02/ | Office | Gastroenterology | [facility], | | | 2020 | Visit | | CRISTHIAN Carbone [address] | | | | | | [address] | | | | | | [place] | | | | | | [address] | | | | | | | | +--------+---------+ + + + documented as of this encounter Visit Diagnoses Not on filedocumented in this encounter"
--- OUTSIDE RECORDS SUMMARY | ~2019-11-08 | XMS | Encounter Summary ---
Demographics + + + | Address | [address] | | | [place] [address] | + + + | Home Phone [...] | Organization | [facility] | | | and [...] #3 | | | | | , [address] | | + + + + + Care Team Providers + +------+ + | Care Commander Police Reserves Name | Role | Phone | + [...] | | | | | | | [facility] | | | | | | [...] Description | +--------+---------+ + + + | 04/09/ | Surgery | [facility] | Toi Gonzalez | Open Right | | 2018 | | MED CTR OR INTRA OP | MD Leighann [address] | Nephrectomy | | | | [address] | [address] [place] | | | | | [place] | [address] | | | | | [address] | | | | | | [phone] | | | +--------+---------+ + + + [...] might be different f rom the original. [facility] Discharge Summary Patient Name: Samreen Zaragoza Patient : 1965 Admitting Physician: Toi Jackson* PCP: Francine Sanford Discharging Physician: Toi Gonzalez [...] might be different f rom the original. [facility] Progress Note Samreen Zaragoza is now [...] by: Bjorn Gonzalez M.D. DATE/TIME: 04/13/2018 19:48 ASisGulshan william MD - 04/13/2018 6:00 AM PDT DATE/TIME: [...] Signed by: Gulshan [place] MD, 04/13/2018 6:00 [facility] CAM[facility]SElectronically signed by Gulshan [place] MD at 04/13 6:05 AM PDTSislow, Gulshan [place] MD - 04/12/2018 10:57 AM [...] Signed by: Gulshan [place] MD, 04/12/2018 10:57 [facility]lectronically signed by Gulshan [place] MD at 04/12 [...] Signed by: Gulshan [place] MD, 04/11/2018 12:48 [facility] signed by Gulshan [place] MD at 04/12 7:28 PM PDTSpToi li MD - 04/10/2018 8:06 AM PDTFormatting of this note rich ht be different from the original. [facility] Progress Note Samreen Zaragoza is now [...] | 12/02/ | Office | Gastroenterology | [facility], | | | 2019 | Visit | | CRISTHIAN Carbone [address] | | | | | | [address] | | | | | | [place] | | | | | | [phone] | | | | | | | [...] mL/min/1.73m2 | [facility] | | | [facility] | RATE,ESTIMATED | | MEDICAL | | | | mL/min/1.12k7Vczh than | | CENTER - | | [...] [address] | [place] | [phone] | | [facility] | | [address] | | | - LABORATORY | | [...] | | | | g/dL | [facility] | | | | [...] [address] | [place] | [phone] | | [facility] | | [address] | | | - LABORATORY | | [...] | | | | REMINGTON GRANT MD ([id number]) | | | | | | on [...] | | Monocytes | | K/uL | [facility] | | | | | | MEDICAL | | | | | | CENTER - | | | | | | LABORATORY | | + + + + + + | Absolute | 0.00 | 0.00 - 0.40 | [facility] | | | Eosinophils | | K/uL | [facility] | | | | [...] ST. | [address] | [place] | [phone] | | [facility] | | [address] | | | - LABORATORY | | [...] | | | | | | [facility] | | | [...] 15 | 7 - 18 mg/dL | [facility] | | | | | | [facility] | | | | | | MEDICAL | | | | | | CENTER - | | | | | | LABORATORY | | + + + + + + | Creatinine | 0.86 | 0.60 - 1.30 | [facility] | | | | | mg/dL | [facility] | | | | | | MEDICAL | | | | | | CENTER - | | | | | | LABORATORY | | + + + + + + | eGFR if not | >60Comment: GLOMERULAR | >=60 | [facility] | | | | FILTRATION | mL/min/1.73m2 | [facility] | | | [facility] | RATE,ESTIMATED | | MEDICAL | | | | mL/min/1.04b9Ngtn than | | CENTER - | | [...] | | | | | mg/dL | [facility] | | | | | | MEDICAL [...] [address] | [place] | [phone] | | [facility] | | [address] | | | - LABORATORY | | [...] [facility] | | | | | | [facility] | | | | | | MEDICAL | | | | | | CENTER - | | | | | | LABORATORY | | + + + + + + | RBC | 4.35 | 3.70 - 5.20 | [facility] | | | | | M/uL | [facility] | | | | | | MEDICAL [...] [address] | [place] | [phone] | | [facility] | | [address] | | | - LABORATORY | | [...] ST. | [address] | [place], [place] | | | [facility] | | [address] | | | - BLOOD BANK | | | | + + + + + Surgical Pathology Exam (04/09/2018 12:00 AM PDT) + + | Specimen | + + | | + + + + + | Narrative | Performed At | + + + | SPECIMEN(S): A RIGHT KIDNEY SPECIMEN SOURCE: A. RIGHT KIDNEY | [facility] | | CLINICAL HISTORY: N26.1 (Atrophy of kidney (terminal)) FINAL | [facility] | | PATHOLOGIC DIAGNOSIS: Right kidney, nephrectomy: - Atrophic kidney | | | with focally prominent chronic and focal acute inflammation and | | | abundant granular renal hilum calculi. - Dilated ureter with benign | | | features. - Negative for evidence of neoplasia. JVR:[facility]:C2NR | | | GROSS DESCRIPTION: The specimen [...] dilated. The central collecting system is dilated. Furnace Hand | | | sections are submitted in eight cassettes. 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 | | | These findings, together with the gross examination, support the | | | pathologic diagnosis. PERFORMING LABORATORY: Tissue processing | | | and slide preparation were performed by [employer], [address] | | [facility], [address], [place] [address] (Riffler Tender: Remington | | | Dina Lazcano; CLIA#: [id number]). Professional interpretation was | | | performed by [employer], [facility] | | | Branch, [address] [facility], [place] [address] (Riffler Tender: | | | Remington Lazcano M.D.; CLIA#: [id number]). Diagnostician: Remington | | | Cole Lazcano MD Pathologist Electronically [...] +---+---+ | | | +---+---+ + +-------+ +--------+---+ + | bupivacaine 0.25%-EPINEPHrine | Given | 04/09/20 | 10 mLs | | Surgical | | 1:200,000 injection PRN, | | 18 1:48 | | | Site | | Starting Angelita 04/09/18 at 1348, | | PM PDT | | | | | Intra-op | | | | | | + +-------+ +--------+---+ + +---+---+ | | | +---+---+ + +-------+ [...] | + +---+ + +-------+ +--------+---+---+ | gabapentin (NEURONTIN) capsule [...] | | | 04/10/18 at 0810, Benjy marsh., | | | | | | + [...]
--- OUTSIDE RECORDS SUMMARY | ~2019-11-08 | XMS | Encounter Summary ---
Demographics + + + | Address | [address] | | | [place] [address] | + + + | Home Phone [...] + + + | Author | [facility] | + + + | Organization | [facility] | + + + | Address | Unknown | + + + | Phone | Unavailable | + + + Support + + + + + | Name | Relationship | Address | Phone | + + + + + | Darius Fields | HELEN | [address] | | | | | [place] [address] | | + + + + + Care Team Providers + +------+ + | Care Manager Science Name | Role | Phone | + [...] [id number] | | | | | | [facility] | | | | | | and [place], | | | | | | Building | | | | | | [place], [place] | | | | | | [address] | | | | | | [phone] | | | +--------+ + + + [...]
--- OUTSIDE RECORDS SUMMARY | ~2019-11-08 | XMS | Encounter Summary ---
Demographics + + + | Address | [address] | | | [place] [address] | + + + | Home Phone | | + + + | Preferred Language | Unknown | + + + | Marital Status | Single | + + + | Sikhism Affiliation | CHR | + + + | Race | White | + + + | Ethnic Group | Not or | + + + Author + + + | Author | [facility] | + + + | Organization | [facility] | + + + | Address | Unknown | + + + | Phone | Unavailable | + + + Support + + + + + | Name | Relationship | Address | Phone | + + + + + | Darius Fields | HELEN | [address] | | | | | [place] [address] | | + + + + + Care Team Providers + +------+ + | Care Operation Manager Name | Role | Phone | + +------+ + | Serean Barroso | PCP | | + +------+ [...] | [address] | [address] [facility] | | | | | Mailcode: CH10U | [facility] | | | | | [facility] | [place] [address] | | | | | and [place], | [phone] | | | | | [facility] | | | | | | [place], [place] | | | | | | [address] | | | | | | [phone] | | | +--------+ + + + [...]
--- OUTSIDE RECORDS SUMMARY | ~2019-11-08 | XMS | Encounter Summary ---
Demographics + + + | Address | [address] | | | [place] [address] | + + + | Home Phone [...] Author + + + | Author | [facility] | + + + | Organization | [facility] | + + + | Address | Unknown | + + + | Phone | Unavailable | + + + Support + + + + + | Name | Relationship | Address | Phone | + + + + + | Darius Fields | HELEN | [address] | | | | | [place] [address] | | + + + + + Care Team Providers + +------+ + | Care Mold Maker Helper Name | Role | Phone | [...]
--- OUTSIDE RECORDS SUMMARY | ~2019-11-08 | XMS | Encounter Summary ---
Demographics + + + | Address | [address] | | | [place] [address] | + + + | Home Phone | | + + + | Preferred Language | Unknown | + + + | Marital Status | | + + + | Scientology Affiliation | Unknown | + + + | Race | Unknown | + + + | Ethnic Group | Unknown | + + + Author + + + | Author | [facility] | | | and [place] | + + + | Organization | [facility] | | | and [place] | + + + | Address | Unknown | + + + | Phone | Unavailable | + + + Support + + + + + | Name | Relationship | Address | Phone | + + + + + | Darius Diamond | ECON | [address] | | | | | , [address] | | + + + + + Care Team Providers + +------+ + | Care College Advisor Name | Role | Phone | + +------+ + PCP | Unavailable | + +------+ + Encounter Details +--------+ + + + + | Date | Type | Department | Care Team | Description | +--------+ + + + + | 04/26/ | Hospital | [facility] | Solomon Gagnon, | | | 2009 | Encounter | MED CTR LABORATORY | [address] [facility] | | | | | [address] | [place], [place] | | | | | [place] | [address] | | | | | [address] | | | | | | [phone] | | | +--------+ + + + [...] | 12/02/ | Office | Gastroenterology | [facility], | | | 2019 | Visit | | CRISTHIAN Carbone [address] | | | | | | [address] | | | | | | [place] | | | | | | [address] | | | | | | | | +--------+---------+ + + + documented as of this encounter Visit Diagnoses Not on filedocumented in this encounter"
--- OUTSIDE RECORDS SUMMARY | ~2019-11-08 | XMS | Encounter Summary ---
Demographics + + + | Address | [address] | | | [place] [address] | + + + | Home Phone | | + + + | Preferred Language | Unknown | + + + | Marital Status | | + + + | Sikh Affiliation | Unknown | + + + | Race | Unknown | + + + | Ethnic Group | Unknown | + + + Author + + + | Author | [facility] | | | and [place] | + + + | Organization | [facility] | | | and [place] | + + + | Address | Unknown | + + + | Phone | Unavailable | + + + Support + + + + + | Name | Relationship | Address | Phone | + + + + + | Darius Fields | ECON | [address] | | | | | , [phone] | | + + + + + Care Team Providers + +------+ + | Care Bank Guard Name | Role | Phone | + +------+ + PCP | Unavailable | + +------+ + Encounter Details +--------+ + + + + | Date | Type | Department | Care Team | Description | +--------+ + + + + | 04/16/ | Hospital | [facility] | | | | 2006 | Encounter | [facility] | | | | | | CENTER [address] | | | | | | [place] | | | | | | [address] | | | | | | [phone] | | | +--------+ + + + [...] | 12/02/ | Office | Gastroenterology | [facility], | | | 2020 | Visit | | [facility] [address] | | | | | [address] | | | | | | [place] | | | | | | [phone] | | | | | | | | +--------+---------+ + + + documented as of this encounter Visit Diagnoses Not on filedocumented in this encounter"
--- OUTSIDE RECORDS SUMMARY | ~2019-11-08 | XMS | Encounter Summary ---
Demographics + + + | Address | [address] | | | [place] [address] | + + + | Home Phone | | + + + | Preferred Language | Unknown | + + + | Marital Status | Single | + + + | Latter-Day Affiliation | CHR | + + + [...] | | | | | [place] [address] | | + + + + + Care Team Providers + +------+ + | Care Data Clerk Name | Role | Phone | + +------+ + | Serena Barroso | PCP | | + +------+ + Encounter Details +--------+ + + + + | Date | Type | Department | Care Team | Description | +--------+ + + + + | 11/03/ | Hospital | Registration [id number] | [place], | | | 2006 | Activity | [address] | MD Reinaldo | | | | | Monster Mailcode: [id number] | | | | | | [place], [place] | | | | | | [address] | | | | | | [phone] | | | +--------+ + + + [...] | | + +---------+--------+ + + | CHEST 1 VIEW | Imaging | Routin | | 11/08/2005 3:52 PM | | | | e | | PST | + +---------+--------+ + + | CT ABDOMEN WWO | Imaging | Routin | | 11/14/2005 9:11 AM | | CONTRAST | | e | | PST | + +---------+--------+ + + | CT PELVIS WWO | Imaging | Routin | | 11/14/2005 9:11 AM | | CONTRAST | | e | | PST | + +---------+--------+ + + documented as of this encounter Procedures + +--------+ + + + | Procedure Name | Priori | Date/Time | Associated Diagnosis | Comments | | | ty | | | | + +--------+ + + + | BASIC METABOLIC SET | Routin | 11/23/2005 | | Results for this | | (NA, K, CL, TCO2, | e | 6:20 AM | | procedure are in the | | BUN, CR, GLU, CA) | | PST | | results section. | + +--------+ + + + | CBC ONLY | Routin | 11/23/2005 | | Results for this | | | e | 6:20 AM | | procedure are in the | | | | PST | | results section. | + +--------+ + + + | PHOSPHORUS, PLASMA | Routin | 11/23/2005 | | Results for this | | | e | 6:20 AM | | procedure are in the | | | | PST | | results section. | + +--------+ + + + | MAGNESIUM, PLASMA | Routin | 11/23/2005 | | Results for this | | | e | 6:20 AM | | procedure are in the | | | | PST | | results section. | + +--------+ + + + | BASIC METABOLIC SET | Routin | 11/23/2005 | | Results for this | | (NA, K, CL, TCO2, | e | 6:01 AM | | procedure are in the | | BUN, CR, GLU, CA) | | PST | | results section. | + +--------+ + + + | CBC ONLY | Routin | 11/23/2005 | | Results for this | | | e | 6:01 AM | | procedure are in the | | | | PST | | results section. | + +--------+ + + + | PHOSPHORUS, PLASMA | Routin | 11/23/2005 | | Results for this | | | e | 6:01 AM | | procedure are in the | | | | PST | | results section. | + +--------+ + + + | MAGNESIUM, PLASMA | Routin | 11/23/2005 | | Results for this | | | e | 6:01 AM | | procedure are in the | | | | PST | | results section. | + +--------+ + + + | BASIC METABOLIC SET | Routin | 11/22/2005 | | Results for this | | (NA, K, CL, TCO2, | e | 4:45 AM | | procedure are in the | | BUN, CR, GLU, CA) | | PST | | results section. | + +--------+ + + + | CBC ONLY | Routin | 11/22/2005 | | Results for this | | | e | 4:45 AM | | procedure are in the | | | | PST | | results section. | + +--------+ + + + | PHOSPHORUS, PLASMA | Routin | 11/22/2005 | | Results for this | | | e | 4:45 AM | | procedure are in the | | | | PST | | results section. | + +--------+ + + + | MAGNESIUM, PLASMA | Routin | 11/22/2005 | | Results for this | | | e | 4:45 AM | | procedure are in the | | | | PST | | results section. | + +--------+ + + + | CBC ONLY | Routin | 11/21/2005 | | Results for this | | | e | 6:20 AM | | procedure are in the | | | | PST | | results section. | + +--------+ + + + | BASIC METABOLIC SET | Routin | 11/20/2005 | | Results for this | | (NA, K, CL, TCO2, | e | 6:40 AM | | procedure are in the | | BUN, CR, GLU, CA) | | PST | | results section. | + +--------+ + + + | CBC ONLY | Routin | 11/20/2005 | | Results for this | | | e | 6:40 AM | | procedure are in the | | | | PST | | results section. | + +--------+ + + + | PHOSPHORUS, PLASMA | Routin | 11/20/2005 | | Results for this | | | e | 6:40 AM | | procedure are in the | | | | PST | | results section. | + +--------+ + + + | MAGNESIUM, PLASMA | Routin | 11/20/2005 | | Results for this | | | e | 6:40 AM | | procedure are in the | | | | PST | | results section. | + +--------+ + + + | CBC ONLY | Routin | 11/19/2005 | | Results for this | | | e | 6:15 AM | | procedure are in the | | | | PST | | results section. | + +--------+ + + + | CBC ONLY | Routin | 11/18/2005 | | Results for this | | | e | 11:26 AM | | procedure are in the | | | | PST | | results section. | + +--------+ + + + | PREALBUMIN, SERUM | Routin | 11/18/2005 | | Results for this | | | e | 6:00 AM | | procedure are in the | | | | PST | | results section. | + +--------+ + + + | COMPLETE METABOLIC | Routin | 11/18/2005 | | Results for this | | SET | e | 6:00 AM | | procedure are in the | | (NA,K,CL,CO2,BUN,CRE | | PST | | results section. | | AT,GLUC,CA,AST,ALT,B | | | | | | ALEKSANDR TOTAL,ALK | | | | | | PHOS,ALB,PROT TOTAL) | | | | | + +--------+ + + + | PHOSPHORUS, PLASMA | Routin | 11/18/2005 | | Results for this | | | e | 6:00 AM | | procedure are in the | | | | PST | | results section. | + +--------+ + + + | BILIRUBIN DIRECT | Routin | 11/18/2005 | | Results for this | | | e | 6:00 AM | | procedure are in the | | | | PST | | results section. | + +--------+ + + + | MAGNESIUM, PLASMA | Routin | 11/18/2005 | | Results for this | | | e | 6:00 AM | | procedure are in the | | | | PST | | results section. | + +--------+ + + + | TRIGLYCERIDES, | Routin | 11/18/2005 | | Results for this | | PLASMA | e | 6:00 AM | | procedure are in the | | | | PST | | results section. | + +--------+ + + + | BASIC METABOLIC SET | Routin | 11/17/2005 | | Results for this | | (NA, K, CL, TCO2, | e | 6:15 AM | | procedure are in the | | BUN, CR, GLU, CA) | | PST | | results section. | + +--------+ + + + | BASIC METABOLIC SET | Routin | 11/15/2005 | | Results for this | | (NA, K, CL, TCO2, | e | 5:45 AM | | procedure are in the | | BUN, CR, GLU, CA) | | PST | | results section. | + +--------+ + + + | PHOSPHORUS, PLASMA | Routin | 11/15/2005 | | Results for this | | | e | 5:45 AM | | procedure are in the | | | | PST | | results section. | + +--------+ + + + | MAGNESIUM, PLASMA | Routin | 11/15/2005 | | Results for this | | | e | 5:45 AM | | procedure are in the | | | | PST | | results section. | + +--------+ + + + | CT PELVIS W IV | Routin | 11/14/2005 | | Results for this | | CONTRAST | e | 2:21 PM | | procedure are in the | | | | PST | | results section. | + +--------+ + + + | CT ABDOMEN W IV | Routin | 11/14/2005 | | Results for this | | CONTRAST | e | 2:21 PM | | procedure are in the | | | | PST | | results section. | + +--------+ + + + | BASIC METABOLIC SET | Routin | 11/14/2005 | | Results for this | | (NA, K, CL, TCO2, | e | 5:00 AM | | procedure are in the | | BUN, CR, GLU, CA) | | PST | | results section. | + +--------+ + + + | PHOSPHORUS, PLASMA | Routin | 11/14/2005 | | Results for this | | | e | 5:00 AM | | procedure are in the | | | | PST | | results section. | + +--------+ + + + | MAGNESIUM, PLASMA | Routin | 11/14/2005 | | Results for this | | | e | 5:00 AM | | procedure are in the | | | | PST | | results section. | + +--------+ + + + | BASIC METABOLIC SET | Routin | 11/13/2005 | | Results for this | | (NA, K, CL, TCO2, | e | 4:15 AM | | procedure are in the | | BUN, CR, GLU, CA) | | PST | | results section. | + +--------+ + + + | PHOSPHORUS, PLASMA | Routin | 11/13/2005 | | Results for this | | | e | 4:15 AM | | procedure are in the | | | | PST | | results section. | + +--------+ + + + | MAGNESIUM, PLASMA | Routin | 11/13/2005 | | Results for this | | | e | 4:15 AM | | procedure are in the | | | | PST | | results section. | + +--------+ + + + | DIFFERENTIAL | Routin | 11/12/2005 | | Results for this | | | e | 5:30 AM | | procedure are in the | | | | PST | | results section. | + +--------+ + + + | CBC, WITH | Routin | 11/12/2005 | | Results for this | | DIFFERENTIAL | e | 5:30 AM | | procedure are in the | | | | PST | | results section. | + +--------+ + + + | BASIC METABOLIC SET | Routin | 11/12/2005 | | Results for this | | (NA, K, CL, TCO2, | e | 5:30 AM | | procedure are in the | | BUN, CR, GLU, CA) | | PST | | results section. | + +--------+ + + + | PHOSPHORUS, PLASMA | Routin | 11/12/2005 | | Results for this | | | e | 5:30 AM | | procedure are in the | | | | PST | | results section. | + +--------+ + + + | MAGNESIUM, PLASMA | Routin | 11/12/2005 | | Results for this | | | e | 5:30 AM | | procedure are in the | | | | PST | | results section. | + +--------+ + + + | PREALBUMIN, SERUM | Routin | 11/11/2005 | | Results for this | | | e | 6:30 AM | | procedure are in the | | | | PST | | results section. | + +--------+ + + + | COMPLETE METABOLIC | Routin | 11/11/2005 | | Results for this | | SET | e | 6:30 AM | | procedure are in the | | (NA,K,CL,CO2,BUN,CRE | | PST | | results section. | | AT,GLUC,CA,AST,ALT,B | | | | | | ALEKSANDR TOTAL,ALK | | | | | | PHOS,ALB,PROT TOTAL) | | | | | + +--------+ + + + | CBC ONLY | Routin | 11/11/2005 | | Results for this | | | e | 6:30 AM | | procedure are in the | | | | PST | | results section. | + +--------+ + + + | PHOSPHORUS, PLASMA | Routin | 11/11/2005 | | Results for this | | | e | 6:30 AM | | procedure are in the | | | | PST | | results section. | + +--------+ + + + | BILIRUBIN DIRECT | Routin | 11/11/2005 | | Results for this | | | e | 6:30 AM | | procedure are in the | | | | PST | | results section. | + +--------+ + + + | MAGNESIUM, PLASMA | Routin | 11/11/2005 | | Results for this | | | e | 6:30 AM | | procedure are in the | | | | PST | | results section. | + +--------+ + + + | TRIGLYCERIDES, | Routin | 11/11/2005 | | Results for this | | PLASMA | e | 6:30 AM | | procedure are in the | | | | PST | | results section. | + +--------+ + + + | BASIC METABOLIC SET | Routin | 11/09/2005 | | Results for this | | (NA, K, CL, TCO2, | e | 4:00 AM | | procedure are in the | | BUN, CR, GLU, CA) | | PST | | results section. | + +--------+ + + + | CBC ONLY | Routin | 11/09/2005 | | Results for this | | | e | 4:00 AM | | procedure are in the | | | | PST | | results section. | + +--------+ + + + | PHOSPHORUS, PLASMA | Routin | 11/09/2005 | | Results for this | | | e | 4:00 AM | | procedure are in the | | | | PST | | results section. | + +--------+ + + + | MAGNESIUM, PLASMA | Routin | 11/09/2005 | | Results for this | | | e | 4:00 AM | | procedure are in the | | | | PST | | results section. | + +--------+ + + + | X-RAY CHEST FEED | Routin | 11/08/2005 | | Results for this | | TUBE EVAL | e | 4:04 PM | | procedure are in the | | | | PST | | results section. | + +--------+ + + + | X-RAY CHEST 1 VIEW | Urgent | 11/08/2005 | | Results for this | | | | 10:45 AM | | procedure are in the | | | | PST | | results section. | + +--------+ + + + | X-RAY CHEST 1 VIEW | Urgent | 11/08/2005 | | Results for this | | | | 7:37 AM | | procedure are in the | | | | PST | | results section. | + +--------+ + + + | DIFFERENTIAL | Routin | 11/08/2005 | | Results for this | | | e | 6:15 AM | | procedure are in the | | | | PST | | results section. | + +--------+ + + + | SLIDE REVIEW | Routin | 11/08/2005 | | Results for this | | | e | 6:15 AM | | procedure are in the | | | | PST | | results section. | + +--------+ + + + | CBC, WITH | Routin | 11/08/2005 | | Results for this | | DIFFERENTIAL | e | 6:15 AM | | procedure are in the | | | | PST | | results section. | + +--------+ + + + | COMPLETE METABOLIC | Routin | 11/08/2005 | | Results for this | | SET | e | 6:15 AM | | procedure are in the | | (NA,K,CL,CO2,BUN,CRE | | PST | | results section. | | AT,GLUC,CA,AST,ALT,B | | | | | | ALEKSANDR TOTAL,ALK | | | | | | PHOS,ALB,PROT TOTAL) | | | | | + +--------+ + + + | PHOSPHORUS, PLASMA | Routin | 11/08/2005 | | Results for this | | | e | 6:15 AM | | procedure are in the | | | | PST | | results section. | + +--------+ + + + | MAGNESIUM, PLASMA | Routin | 11/08/2005 | | Results for this | | | e | 6:15 AM | | procedure are in the | | | | PST | | results section. | + +--------+ + + + | CT PELVIS W IV | Urgent | 11/07/2005 | | Results for this | | CONTRAST | | 2:12 PM | | procedure are in the | | | | PST | | results section. | + +--------+ + + + | CT ABDOMEN W IV | Routin | 11/07/2005 | | Results for this | | CONTRAST | e | 2:12 PM | | procedure are in the | | | | PST | | results section. | + +--------+ + + + | BASIC METABOLIC SET | Routin | 11/07/2005 | | Results for this | | (NA, K, CL, TCO2, | e | 6:20 AM | | procedure are in the | | BUN, CR, GLU, CA) | | PST | | results section. | + +--------+ + + + | CBC ONLY | Routin | 11/07/2005 | | Results for this | | | e | 6:20 AM | | procedure are in the | | | | PST | | results section. | + +--------+ + + + | PHOSPHORUS, PLASMA | Routin | 11/07/2005 | | Results for this | | | e | 6:20 AM | | procedure are in the | | | | PST | | results section. | + +--------+ + + + | MAGNESIUM, PLASMA | Routin | 11/07/2005 | | Results for this | | | e | 6:20 AM | | procedure are in the | | | | PST | | results section. | + +--------+ + + + | BASIC METABOLIC SET | Routin | 11/06/2005 | | Results for this | | (NA, K, CL, TCO2, | e | 6:40 AM | | procedure are in the | | BUN, CR, GLU, CA) | | PST | | results section. | + +--------+ + + + | CBC ONLY | Routin | 11/06/2005 | | Results for this | | | e | 6:40 AM | | procedure are in the | | | | PST | | results section. | + +--------+ + + + | PHOSPHORUS, PLASMA | Routin | 11/06/2005 | | Results for this | | | e | 6:40 AM | | procedure are in the | | | | PST | | results section. | + +--------+ + + + | MAGNESIUM, PLASMA | Routin | 11/06/2005 | | Results for this | | | e | 6:40 AM | | procedure are in the | | | | PST | | results section. | + +--------+ + + + | TYPE AND CROSSMATCH | Routin | 11/05/2005 | | Results for this | | | e | 11:30 PM | | procedure are in the | | | | PST | | results section. | + +--------+ + + + | TROPONIN I, PLASMA | Routin | 11/05/2005 | | Results for this | | | e | 4:08 PM | | procedure are in the | | | | PST | | results section. | + +--------+ + + + | CBC ONLY | Routin | 11/05/2005 | | Results for this | | | e | 4:08 PM | | procedure are in the | | | | PST | | results section. | + +--------+ + + + | TROPONIN I, PLASMA | Routin | 11/05/2005 | | Results for this | | | e | 2:00 PM | | procedure are in the | | | | PST | | results section. | + +--------+ + + + | BASIC METABOLIC SET | Routin | 11/05/2005 | | Results for this | | (NA, K, CL, TCO2, | e | 2:00 PM | | procedure are in the | | BUN, CR, GLU, CA) | | PST | | results section. | + +--------+ + + + | BASIC METABOLIC SET | Routin | 11/05/2005 | | Results for this | | (NA, K, CL, TCO2, | e | 6:35 AM | | procedure are in the | | BUN, CR, GLU, CA) | | PST | | results section. | + +--------+ + + + | CBC ONLY | Routin | 11/05/2005 | | Results for this | | | e | 6:35 AM | | procedure are in the | | | | PST | | results section. | + +--------+ + + + | PHOSPHORUS, PLASMA | Routin | 11/05/2005 | | Results for this | | | e | 6:35 AM | | procedure are in the | | | | PST | | results section. | + +--------+ + + + | MAGNESIUM, PLASMA | Routin | 11/05/2005 | | Results for this | | | e | 6:35 AM | | procedure are in the | | | | PST | | results section. | + +--------+ + + + | BASIC METABOLIC SET | Urgent | 11/04/2005 | | Results for this | | (NA, K, CL, TCO2, | | 6:00 PM | | procedure are in the | | BUN, CR, GLU, CA) | | PST | | results section. | + +--------+ + + + | CBC ONLY | Urgent | 11/04/2005 | | Results for this | | | | 6:00 PM | | procedure are in the | | | | PST | | results section. | + +--------+ + + + | PHOSPHORUS, PLASMA | Urgent | 11/04/2005 | | Results for this | | | | 6:00 PM | | procedure are in the | | | | PST | | results section. | + +--------+ + + + | MAGNESIUM, PLASMA | Urgent | 11/04/2005 | | Results for this | | | | 6:00 PM | | procedure are in the | | | | PST | | results section. | + +--------+ + + + | INR | Routin | 11/03/2005 | | Results for this | | | e | 5:30 PM | | procedure are in the | | | | PST | | results section. | + +--------+ + + + | LIVER SET | Routin | 11/03/2005 | | Results for this | | (AST,ALT,BILI | e | 5:30 PM | | procedure are in the | | TOTAL,BILI | | PST | | results section. | | DIRECT,ALK | | | | | | PHOS,ALB,PROT TOTAL) | | | | | + +--------+ + + + | BASIC METABOLIC SET | Routin | 11/03/2005 | | Results for this | | (NA, K, CL, TCO2, | e | 5:30 PM | | procedure are in the | | BUN, CR, GLU, CA) | | PST | | results section. | + +--------+ + + + | CBC ONLY | Routin | 11/03/2005 | | Results for this | | | e | 5:30 PM | | procedure are in the | | | | PST | | results section. | + +--------+ + + + | APTT (ACT. PART. | Routin | 11/03/2005 | | Results for this | | THROMBO TIME) | e | 5:30 PM | | procedure are in the | | | | PST | | results section. | + +--------+ + + + | BLOOD BANK PRODUCT | Routin | 11/03/2005 | | Results for this | | | e | 1:00 PM | | procedure are in the | | | | PST | | results section. | + +--------+ + + + | BLOOD BANK PRODUCT | Routin | 11/03/2005 | | Results for this | | | e | 1:00 PM | | procedure are in the | | | | PST | | results section. | + +--------+ + + + | TYPE AND SCREEN | Routin | 11/03/2005 | | Results for this | | | e | 1:00 PM | | procedure are in the | | | | PST | | results section. | + +--------+ + + + documented in this encounter Results PHOSPHORUS, PLASMA (11/23/2005 6:20 AM PST) + +-------+ + + + | Component | Value | Ref Range | Performed | Pathologist | | | | | At | Signature | + +-------+ + + + | PHOSPHORUS, | 3.7 | 2.4 - 4.7 mg/dL | [facility] | | | PLASMA | | | DEPARTMENT | | | (LAB) | | | OF | | | | | | PATHOLOGY | | + +-------+ + + + + + | Specimen | + + | | + + + + + + + | Performing | Address | City/State/Zipcode | Phone Number | | Organization | | | | + + + + + | [facility] | [address] | [place] [address] | | | PATHOLOGY | [address] | | | + + + + + | [facility] | [address] | [place] [address] | | | PATHOLOGY | [address] | | | + + + + + MAGNESIUM, PLASMA (11/23/2005 6:20 AM PST) + +-------+ + + + | Component | Value | Ref Range | Performed | Pathologist | | | | | At | Signature | + +-------+ + + + | MAGNESIUM,P | 1.9 | 1.8 - 2.5 mg/dL | [facility] | | | LASMA | | | DEPARTMENT | | | | | | OF | | | | | | PATHOLOGY | | + +-------+ + + + + + | Specimen | + + | | + + + + + + + | Performing | Address | City/State/Zipcode | Phone Number | | Organization | | | | + + + + + | [facility] DEPARTMENT OF | [address] | [place] [address] | | | PATHOLOGY | [address] | | | + + + + + | [facility] DEPARTMENT OF | [address] | [place] [address] | | | PATHOLOGY | [address] | | | + + + + + CBC ONLY WITH PLATELET (11/23/2005 6:20 AM PST) + + + + + + | Component | Value | Ref Range | Performed | Pathologist | | | | | At | Signature | + + + + + + | WHITE CELL | 11.5 (H) | 4.4 - 11.0 K/cu | [facility] | | | COUNT | | mm | DEPARTMENT | | | | | | OF | | | | | | PATHOLOGY | | + + + + + + | RED CELL | 2.59 (L) | 4.00 - 5.20 | [facility] | | | COUNT | | M/cu mm | DEPARTMENT | | | | | | OF | | | | | | PATHOLOGY | | + + + + + + | HEMOGLOBIN | 8.4 (L) | 12.0 - 16.0 | [facility] | | | | | g/dL | DEPARTMENT | | | | | | OF | | | | | | PATHOLOGY | | + + + + + + | HEMATOCRIT | 24.5 (L) | 36.0 - 46.0 % | [facility] | | | | | | DEPARTMENT | | | | | | OF | | | | | | PATHOLOGY | | + + + + + + | MCV | 94.4 | 80.0 - 96.0 fL | [facility] | | | | | | DEPARTMENT | | | | | | OF | | | | | | PATHOLOGY | | + + + + + + | MCHC | 34.5 | 33.4 - 35.5 | [facility] | | | | | g/dL | DEPARTMENT | | | | | | OF | | | | | | PATHOLOGY | | + + + + + + | RDW | 15.6 (H) | 11.5 - 15.0 % | [facility] | | | | | | DEPARTMENT | | | | | | OF | | | | | | PATHOLOGY | | + + + + + + | PLATELET | 764 (H) | 150 - 400 K/cu | [facility] | | | COUNT | | mm | DEPARTMENT | | [...] + + | [facility] DEPARTMENT OF | [address] | [place], [place] [address] | | | PATHOLOGY | [address] | | | + + + + + | [facility] DEPARTMENT OF | [address] | [place] [address] | | | PATHOLOGY | [address] | | | + + + + + BASIC METABOLIC SET (11/23/2005 6:20 AM PST) + +---------+ + + + | Component | Value | Ref Range | Performed | Pathologist | | | | | At | Signature | + +---------+ + + + | GLUCOSE, | 91 | 65 - 110 mg/dL | [facility] | | | PLASMA | | | DEPARTMENT | | | (LAB) | | | OF | | | | | | PATHOLOGY | | + +---------+ + + + | BUN, PLASMA | 8 | 6 - 20 mg/dL | [facility] | | | (LAB) | | | DEPARTMENT | | | | | | OF | | | | | | PATHOLOGY | | + +---------+ + + + | CREATININE | 0.8 | 0.6 - 1.1 mg/dL | [facility] | | | PLASMA | | | DEPARTMENT | | | (LAB) | | | OF | | | | | | PATHOLOGY | | + +---------+ + + + | SODIUM, | 136 | 136 - 145 | [facility] | | | PLASMA | | mmol/L | DEPARTMENT | | | (LAB) | | | OF | | | | | | PATHOLOGY | | + +---------+ + + + | POTASSIUM, | 3.2 (L) | 3.5 - 5.1 | [facility] | | | PLASMA | | mmol/L | DEPARTMENT | | | (LAB) | | | OF | | | | | | PATHOLOGY | | + +---------+ + + + | CHLORIDE, | 103 | 98 - 107 mmol/L | [facility] | | | PLASMA | | | DEPARTMENT | | | (LAB) | | | OF | | | | | | PATHOLOGY | | + +---------+ + + + | TOTAL CO2, | 26 | 23 - 29 mmol/L | [facility] | | | PLASMA | | | DEPARTMENT | | | (LAB) | | | OF | | | | | | PATHOLOGY | | + +---------+ + + + | CALCIUM, | 8.4 (L) | 8.5 - 10.5 | [facility] | | | PLASMA | | mg/dL | DEPARTMENT | | | (LAB) | | | OF | | | | | | PATHOLOGY | | + +---------+ + + + + + | Specimen | + + | | + + + + + + + | Performing | Address | City/State/Zipcode | Phone Number | | Organization | | | | + + + + + | [facility] DEPARTMENT OF | [address] | [place] [address] | | | PATHOLOGY | [address] | | | + + + + + | [facility] DE[facility]MENT [facility] | [address] | [place] [address] | | | PATHOLOGY | [address] | | | + + + + + MAGNESIUM, PLASMA (11/23/2005 6:01 AM PST) + + + + + + | Component | Value | Ref Range | Performed | Pathologist | | | | | At | Signature | + + + + + + | MAGNESIUM,P | See cmnt | 1.8 - 2.5 mg/dL | [facility] | | | LASMA | | | DEPARTMENT | | | | | | OF | | | | | | PATHOLOGY | | + + + + + + + + | Specimen | + + | | + + + + + | Narrative | Performed At | + + + | Staff or dialysis draw required. | [facility] | | | DEPARTMENT OF | | | PATHOLOGY | + + + + + + + + | Performing | Address | City/State/Zipcode | Phone Number | | Organization | | | | + + + + + | [facility] DEPARTMENT OF | [id number] | [place] [address] | | | PATHOLOGY | [address] | | | + + + + + | [facility] DEPARTMENT OF | [id number] | [place] [address] | | | PATHOLOGY | [address] | | | + + + + + PHOSPHORUS, PLASMA (11/23/2005 6:01 AM PST) + + + + + + | Component | Value | Ref Range | Performed | Pathologist | | | | | At | Signature | + + + + + + | PHOSPHORUS, | See cmnt | 2.4 - 4.7 mg/dL | [facility] | | | [facility] | | | DEPARTMENT | | | (LAB) | | | OF | | | | | | PATHOLOGY | | + + + + + + + + | Specimen | + + | | + + + + + | Narrative | Performed At | + + + | Staff or dialysis draw required. | [facility] | | | DEPARTMENT OF | | | PATHOLOGY | + + + + + + + + | Performing | Address | City/State/Zipcode | Phone Number | | Organization | | | | + + + + + | [facility] DEPARTMENT OF | [id number] | [place] [address] | | | PATHOLOGY | [address] | | | + + + + + | [facility] DEPARTMENT OF | [id number] | [place] [address] | | | PATHOLOGY | [address] | | | + + + + + CBC ONLY WITH PLATELET (11/23/2005 6:01 AM PST) + + + + + + | Component | Value | Ref Range | Performed | Pathologist | | | | | At | Signature | + + + + + + | WHITE CELL | See cmnt | 4.4 - 11.0 K/cu | [facility] | | | COUNT | | mm | DEPARTMENT | | | | | | OF | | | | | | PATHOLOGY | | + + + + + + | RED CELL | See cmnt | 4.00 - 5.20 | [facility] | | | COUNT | | M/cu mm | DEPARTMENT | | | | | | OF | | | | | | PATHOLOGY | | + + + + + + | HEMOGLOBIN | See cmnt | 12.0 - 16.0 | [facility] | | | | | g/dL | DEPARTMENT | | | | | | OF | | | | | | PATHOLOGY | | + + + + + + | HEMATOCRIT | See cmnt | 36.0 - 46.0 % | [facility] | | | | | | DEPARTMENT | | | | | | OF | | | | | | PATHOLOGY | | + + + + + + | MCV | See cmnt | 80.0 - 96.0 fL | [facility] | | | | | | DEPARTMENT | | | | | | OF | | | | | | PATHOLOGY | | + + + + + + | MCHC | See cmnt | 33.4 - 35.5 | [facility] | | | | | g/dL | DEPARTMENT | | | | | | OF | | | | | | PATHOLOGY | | + + + + + + | RDW | See cmnt | 11.5 - 15.0 % | [facility] | | | | | | DEPARTMENT | | | | | | OF | | | | | | PATHOLOGY | | + + + + + + | PLATELET | See cmnt | 150 - 400 K/cu | [facility] | | | COUNT | | mm | DEPARTMENT | | | | | | OF | | | | | | PATHOLOGY | | + + + + + + + + | Specimen | + + | | + + + + + | Narrative | Performed At | + + + | Staff or dialysis draw required. | [facility] | | | DEPARTMENT OF | | | PATHOLOGY | + + + + + + + + | Performing | Address | City/State/Zipcode | Phone Number | | Organization | | | | + + + + + | [facility] | [address] | [place] [address] | | | PATHOLOGY | [address] | | | + + + + + | [facility] | [address] [place] [address] [address] | [place] [address] | | | PATHOLOGY | [address] | | | + + + + + BASIC METABOLIC SET (11/23/2005 6:01 AM PST) + + + + + + | Component | Value | Ref Range | Performed | Pathologist | | | | | At | Signature | + + + + + + | GLUCOSE, | See cmnt | 65 - 110 mg/dL | [facility] | | | PLASMA | | | DEPARTMENT | | | (LAB) | | | OF | | | | | | PATHOLOGY | | + + + + + + | BUN, PLASMA | See cmnt | 6 - 20 mg/dL | [facility] | | | (LAB) | | | DEPARTMENT | | | | | | OF | | | | | | PATHOLOGY | | + + + + + + | CREATININE | See cmnt | 0.6 - 1.1 mg/dL | [facility] | | | PLASMA | | | DEPARTMENT | | | (LAB) | | | OF | | | | | | PATHOLOGY | | + + + + + + | SODIUM, | See cmnt | 136 - 145 | [facility] | | | PLASMA | | mmol/L | DEPARTMENT | | | (LAB) | | | OF | | | | | | PATHOLOGY | | + + + + + + | POTASSIUM, | See cmnt | 3.5 - 5.1 | [facility] | | | PLASMA | | mmol/L | DEPARTMENT | | | (LAB) | | | OF | | | | | | PATHOLOGY | | + + + + + + | CHLORIDE, | See cmnt | 98 - 107 mmol/L | [facility] | | | PLASMA | | | DEPARTMENT | | | (LAB) | | | OF | | | | | | PATHOLOGY | | + + + + + + | TOTAL CO2, | See cmnt | 23 - 29 mmol/L | [facility] | | | PLASMA | | | DEPARTMENT | | | (LAB) | | | OF | | | | | | PATHOLOGY | | + + + + + + | CALCIUM, | See cmnt | 8.5 - 10.5 | [facility] | | | PLASMA | | mg/dL | DEPARTMENT | | | (LAB) | | | OF | | | | | | PATHOLOGY | | + + + + + + | POTASSIUM | See cmnt | | [facility] | | | CMNT | | | DEPARTMENT | | | | | | OF | | | | | | PATHOLOGY | | + + + + + + + + | Specimen | + + | | + + + + + | Narrative | Performed At | + + + | Staff or dialysis draw required. | [facility] | | | DEPARTMENT OF | | | PATHOLOGY | + + + + + + + + | Performing | Address | City/State/Zipcode | Phone Number | | Organization | | | | + + + + + | [facility] | [address] [facility] | [place] [address] | | | PATHOLOGY | [address] | | | + + + + + | [facility] | [address] [facility] | [place] [address] | | | PATHOLOGY | [address] | | | + + + + + BASIC METABOLIC SET (11/22/2005 4:45 AM PST) + +---------+ + + + | Component | Value | Ref Range | Performed | Pathologist | | | | | At | Signature | + +---------+ + + + | GLUCOSE, | 99 | 65 - 110 mg/dL | [facility] | | | PLASMA | | | DEPARTMENT | | | (LAB) | | | OF | | | | | | PATHOLOGY | | + +---------+ + + + | BUN, PLASMA | 6 | 6 - 20 mg/dL | [facility] | | | (LAB) | | | DEPARTMENT | | | | | | OF | | | | | | PATHOLOGY | | + +---------+ + + + | CREATININE | 0.7 | 0.6 - 1.1 mg/dL | [facility] | | | PLASMA | | | DEPARTMENT | | | (LAB) | | | OF | | | | | | PATHOLOGY | | + +---------+ + + + | SODIUM, | 135 (L) | 136 - 145 | [facility] | | | PLASMA | | mmol/L | DEPARTMENT | | | (LAB) | | | OF | | | | | | PATHOLOGY | | + +---------+ + + + | POTASSIUM, | 3.3 (L) | 3.5 - 5.1 | [facility] | | | PLASMA | | mmol/L | DEPARTMENT | | | (LAB) | | | OF | | | | | | PATHOLOGY | | + +---------+ + + + | CHLORIDE, | 100 | 98 - 107 mmol/L | [facility] | | | PLASMA | | | DEPARTMENT | | | (LAB) | | | OF | | | | | | PATHOLOGY | | + +---------+ + + + | TOTAL CO2, | 26 | 23 - 29 mmol/L | [facility] | | | PLASMA | | | DEPARTMENT | | | (LAB) | | | OF | | | | | | PATHOLOGY | | + +---------+ + + + | CALCIUM, | 8.5 | 8.5 - 10.5 | [facility] | | | PLASMA | | mg/dL | DEPARTMENT | | | (LAB) | | | OF | | | | | | PATHOLOGY | | + +---------+ + + + + + | Specimen | + + | | + + + + + + + | Performing | Address | City/State/Zipcode | Phone Number | | Organization | | | | + + + + + | [facility] | [address] | [place] [address] | | | PATHOLOGY | [address] | | | + + + + + | [facility] | [address] [place] [address] | [place] [address] | | | PATHOLOGY | [address] | | | + + + + + CBC ONLY WITH PLATELET (11/22/2005 4:45 AM PST) + + + + + + | Component | Value | Ref Range | Performed | Pathologist | | | | | At | Signature | + + + + + + | WHITE CELL | 12.7 (H) | 4.4 - 11.0 K/cu | [facility] | | | COUNT | | mm | DEPARTMENT | | | | | | OF | | | | | | PATHOLOGY | | + + + + + + | RED CELL | 2.59 (L) | 4.00 - 5.20 | [facility] | | | COUNT | | M/cu mm | DEPARTMENT | | | | | | OF | | | | | | PATHOLOGY | | + + + + + + | HEMOGLOBIN | 8.4 (L) | 12.0 - 16.0 | [facility] | | | | | g/dL | DEPARTMENT | | | | | | OF | | | | | | PATHOLOGY | | + + + + + + | HEMATOCRIT | 24.2 (L) | 36.0 - 46.0 % | [facility] | | | | | | DEPARTMENT | | | | | | OF | | | | | | PATHOLOGY | | + + + + + + | MCV | 93.3 | 80.0 - 96.0 fL | [facility] | | | | | | DEPARTMENT | | | | | | OF | | | | | | PATHOLOGY | | + + + + + + | MCHC | 34.7 | 33.4 - 35.5 | [facility] | | | | | g/dL | DEPARTMENT | | | | | | OF | | | | | | PATHOLOGY | | + + + + + + | RDW | 15.6 (H) | 11.5 - 15.0 % | [facility] | | | | | | DEPARTMENT | | | | | | OF | | | | | | PATHOLOGY | | + + + + + + | PLATELET | 820 (H) | 150 - 400 K/cu | [facility] | | | COUNT | | mm | DEPARTMENT | | [...] | + + + + + | [facility] DEPARTMENT OF | [address] | [place] [address] | | | PATHOLOGY | [address] | | | + + + + + | [facility] DEPARTMENT OF | [facility] | [place] [address] | | | PATHOLOGY | [address] | | | + + + + + PHOSPHORUS, PLASMA (11/22/2005 4:45 AM PST) + +-------+ + + + | Component | Value | Ref Range | Performed | Pathologist | | | | | At | Signature | + +-------+ + + + | PHOSPHORUS, | 3.4 | 2.4 - 4.7 mg/dL | [facility] | | | PLASMA | | | DEPARTMENT | | | (LAB) | | | OF | | | | | | PATHOLOGY | | + +-------+ + + + + + | Specimen | + + | | + + + + + + + | Performing | Address | City/State/Zipcode | Phone Number | | Organization | | | | + + + + + | [facility]MENT [facility] | [address] | [place] [address] | | | PATHOLOGY | [address] | | | + + + + + | [facility] DEPARTMENT OF | [address] | [place] [address] | | | PATHOLOGY | [address] | | | + + + + + MAGNESIUM, PLASMA (11/22/2005 4:45 AM PST) + +-------+ + + + | Component | Value | Ref Range | Performed | Pathologist | | | | | At | Signature | + +-------+ + + + | MAGNESIUM,P | 1.9 | 1.8 - 2.5 mg/dL | [facility] | | | LASMA | | | DEPARTMENT | | | | | | OF | | | | | | PATHOLOGY | | + +-------+ + + + + + | Specimen | + + | | + + + + + + + | Performing | Address | City/State/Zipcode | Phone Number | | Organization | | | | + + + + + | [facility] DEPARTMENT OF | [address] | [place] [address] | | | PATHOLOGY | [address] | | | + + + + + | [facility] DEPARTMENT OF | [address] | [place] [address] | | | PATHOLOGY | [address] | | | + + + + + CBC ONLY WITH PLATELET (11/21/2005 6:20 AM PST) + + + + + + | Component | Value | Ref Range | Performed | Pathologist | | | | | At | Signature | + + + + + + | WHITE CELL | 9.6 | 4.4 - 11.0 K/cu | [facility] | | | COUNT | | mm | DEPARTMENT | | | | | | OF | | | | | | PATHOLOGY | | + + + + + + | RED CELL | 2.28 (L) | 4.00 - 5.20 | [facility] | | | COUNT | | M/cu mm | DEPARTMENT | | | | | | OF | | | | | | PATHOLOGY | | + + + + + + | HEMOGLOBIN | 7.3 (L) | 12.0 - 16.0 | [facility] | | | | | g/dL | DEPARTMENT | | | | | | OF | | | | | | PATHOLOGY | | + + + + + + | HEMATOCRIT | 21.5 (L) | 36.0 - 46.0 % | [facility] | | | | | | DEPARTMENT | | | | | | OF | | | | | | PATHOLOGY | | + + + + + + | MCV | 94.5 | 80.0 - 96.0 fL | [facility] | | | | | | DEPARTMENT | | | | | | OF | | | | | | PATHOLOGY | | + + + + + + | MCHC | 34.0 | 33.4 - 35.5 | [facility] | | | | | g/dL | DEPARTMENT | | | | | | OF | | | | | | PATHOLOGY | | + + + + + + | RDW | 15.8 (H) | 11.5 - 15.0 % | [facility] | | | | | | DEPARTMENT | | | | | | OF | | | | | | PATHOLOGY | | + + + + + + | PLATELET | 705 (H) | 150 - 400 K/cu | [facility] | | | COUNT | | mm | DEPARTMENT | | [...] | + + + + + | [facility] DEPARTMENT OF | [address] | [place] [address] | | | PATHOLOGY | [address] | | | + + + + + | [facility] DEPARTMENT OF | [address] | [place] [address] | | | PATHOLOGY | [address] | | | + + + + + PHOSPHORUS, PLASMA (11/20/2005 6:40 AM PST) + +-------+ + + + | Component | Value | Ref Range | Performed | Pathologist | | | | | At | Signature | + +-------+ + + + | PHOSPHORUS, | 3.1 | 2.4 - 4.7 mg/dL | [facility] | | | PLASMA | | | DEPARTMENT | | | (LAB) | | | OF | | | | | | PATHOLOGY | | + +-------+ + + + + + | Specimen | + + | | + + + + + + + | Performing | Address | City/State/Zipcode | Phone Number | | Organization | | | | + + + + + | [facility] | [address] [facility] | [place] [address] | | | PATHOLOGY | [address] | | | + + + + + | [facility] | [facility] [facility] | [place] [address] | | | PATHOLOGY | [address] | | | + + + + + MAGNESIUM, PLASMA (11/20/2005 6:40 AM PST) + +-------+ + + + | Component | Value | Ref Range | Performed | Pathologist | | | | | At | Signature | + +-------+ + + + | MAGNESIUM,P | 1.9 | 1.8 - 2.5 mg/dL | [facility] | | | LASMA | | | DEPARTMENT | | | | | | OF | | | | | | PATHOLOGY | | + +-------+ + + + + + | Specimen | + + | | + + + + + + + | Performing | Address | City/State/Zipcode | Phone Number | | Organization | | | | + + + + + | [facility] DEPARTMENT OF | [address] | [place] [address] | | | PATHOLOGY | [address] | | | + + + + + | [facility] DE[facility]MENT OF | [address] | [place] [address] | | | PATHOLOGY | [address] | | | + + + + + CBC ONLY WITH PLATELET (11/20/2005 6:40 AM PST) + + + + + + | Component | Value | Ref Range | Performed | Pathologist | | | | | At | Signature | + + + + + + | WHITE CELL | 13.3 (H) | 4.4 - 11.0 K/cu | [facility] | | | COUNT | | mm | DEPARTMENT | | | | | | OF | | | | | | PATHOLOGY | | + + + + + + | RED CELL | 2.61 (L) | 4.00 - 5.20 | [facility] | | | COUNT | | M/cu mm | DEPARTMENT | | | | | | OF | | | | | | PATHOLOGY | | + + + + + + | HEMOGLOBIN | 8.2 (L) | 12.0 - 16.0 | [facility] | | | | | g/dL | DEPARTMENT | | | | | | OF | | | | | | PATHOLOGY | | + + + + + + | HEMATOCRIT | 24.6 (L) | 36.0 - 46.0 % | [facility] | | | | | | DEPARTMENT | | | | | | OF | | | | | | PATHOLOGY | | + + + + + + | MCV | 94.3 | 80.0 - 96.0 fL | [facility] | | | | | | DEPARTMENT | | | | | | OF | | | | | | PATHOLOGY | | + + + + + + | MCHC | 33.5 | 33.4 - 35.5 | [facility] | | | | | g/dL | DEPARTMENT | | | | | | OF | | | | | | PATHOLOGY | | + + + + + + | RDW | 15.9 (H) | 11.5 - 15.0 % | [facility] | | | | | | DEPARTMENT | | | | | | OF | | | | | | PATHOLOGY | | + + + + + + | PLATELET | 824 (H) | 150 - 400 K/cu | [facility] | | | COUNT | | mm | DEPARTMENT | | [...] DEPARTMENT OF | [address] | [place] [address] | | | PATHOLOGY | [address] | | | + + + + + | [facility] DEPARTMENT OF | [address] | [place] [address] | | | PATHOLOGY | [address] | | | + + + + + BASIC METABOLIC SET (11/20/2005 6:40 AM PST) + +---------+ + + + | Component | Value | Ref Range | Performed | Pathologist | | | | | At | Signature | + +---------+ + + + | GLUCOSE, | 108 | 65 - 110 mg/dL | [facility] | | | PLASMA | | | DEPARTMENT | | | (LAB) | | | OF | | | | | | PATHOLOGY | | + +---------+ + + + | BUN, PLASMA | 11 | 6 - 20 mg/dL | [facility] | | | (LAB) | | | DEPARTMENT | | | | | | OF | | | | | | PATHOLOGY | | + +---------+ + + + | CREATININE | 0.7 | 0.6 - 1.1 mg/dL | [facility] | | | PLASMA | | | DEPARTMENT | | | (LAB) | | | OF | | | | | | PATHOLOGY | | + +---------+ + + + | SODIUM, | 133 (L) | 136 - 145 | [facility] | | | PLASMA | | mmol/L | DEPARTMENT | | | (LAB) | | | OF | | | | | | PATHOLOGY | | + +---------+ + + + | POTASSIUM, | 3.3 (L) | 3.5 - 5.1 | [facility] | | | PLASMA | | mmol/L | DEPARTMENT | | | (LAB) | | | OF | | | | | | PATHOLOGY | | + +---------+ + + + | CHLORIDE, | 101 | 98 - 107 mmol/L | [facility] | | | PLASMA | | | DEPARTMENT | | | (LAB) | | | OF | | | | | | PATHOLOGY | | + +---------+ + + + | TOTAL CO2, | 26 | 23 - 29 mmol/L | [facility] | | | PLASMA | | | DEPARTMENT | | | (LAB) | | | OF | | | | | | PATHOLOGY | | + +---------+ + + + | CALCIUM, | 8.2 (L) | 8.5 - 10.5 | [facility] | | | PLASMA | | mg/dL | DEPARTMENT | | | (LAB) | | | OF | | | | | | PATHOLOGY | | + +---------+ + + + + + | Specimen | + + | | + + + + + + + | Performing | Address | City/State/Zipcode | Phone Number | | Organization | | | | + + + + + | [facility] | [address] | [place] [address] | | | PATHOLOGY | [address] | | | + + + + + | [facility] DEPARTMENT OF | [address] | [place] [address] | | | PATHOLOGY | [address] | | | + + + + + CBC ONLY WITH PLATELET (11/19/2005 6:15 AM PST) + + + + + + | Component | Value | Ref Range | Performed | Pathologist | | | | | At | Signature | + + + + + + | WHITE CELL | 11.8 (H) | 4.4 - 11.0 K/cu | [facility] | | | COUNT | | mm | DEPARTMENT | | | | | | OF | | | | | | PATHOLOGY | | + + + + + + | RED CELL | 2.48 (L) | 4.00 - 5.20 | [facility] | | | COUNT | | M/cu mm | DEPARTMENT | | | | | | OF | | | | | | PATHOLOGY | | + + + + + + | HEMOGLOBIN | 8.0 (L) | 12.0 - 16.0 | [facility] | | | | | g/dL | DEPARTMENT | | | | | | OF | | | | | | PATHOLOGY | | + + + + + + | HEMATOCRIT | 23.5 (L) | 36.0 - 46.0 % | [facility] | | | | | | DEPARTMENT | | | | | | OF | | | | | | PATHOLOGY | | + + + + + + | MCV | 95.0 | 80.0 - 96.0 fL | [facility] | | | | | | DEPARTMENT | | | | | | OF | | | | | | PATHOLOGY | | + + + + + + | MCHC | 34.0 | 33.4 - 35.5 | [facility] | | | | | g/dL | DEPARTMENT | | | | | | OF | | | | | | PATHOLOGY | | + + + + + + | RDW | 15.4 (H) | 11.5 - 15.0 % | [facility] | | | | | | DEPARTMENT | | | | | | OF | | | | | | PATHOLOGY | | + + + + + + | PLATELET | 792 (H) | 150 - 400 K/cu | [facility] | | | COUNT | | mm | DEPARTMENT | | [...] + + + + + | [facility] | [address] [facility] | [place] [address] | | | PATHOLOGY | [address] | | | + + + + + | [facility] | [address] [facility] | [place] [address] | | | PATHOLOGY | [address] | | | + + + + + CBC ONLY WITH PLATELET (11/18/2005 11:26 AM PST) + + + + + + | Component | Value | Ref Range | Performed | Pathologist | | | | | At | Signature | + + + + + + | WHITE CELL | 13.6 (H) | 4.4 - 11.0 K/cu | [facility] | | | COUNT | | mm | DEPARTMENT | | | | | | OF | | | | | | PATHOLOGY | | + + + + + + | RED CELL | 2.81 (L) | 4.00 - 5.20 | [facility] | | | COUNT | | M/cu mm | DEPARTMENT | | | | | | OF | | | | | | PATHOLOGY | | + + + + + + | HEMOGLOBIN | 9.0 (L) | 12.0 - 16.0 | [facility] | | | | | g/dL | DEPARTMENT | | | | | | OF | | | | | | PATHOLOGY | | + + + + + + | HEMATOCRIT | 26.6 (L) | 36.0 - 46.0 % | [facility] | | | | | | DEPARTMENT | | | | | | OF | | | | | | PATHOLOGY | | + + + + + + | MCV | 94.7 | 80.0 - 96.0 fL | [facility] | | | | | | DEPARTMENT | | | | | | OF | | | | | | PATHOLOGY | | + + + + + + | MCHC | 33.9 | 33.4 - 35.5 | [facility] | | | | | g/dL | DEPARTMENT | | | | | | OF | | | | | | PATHOLOGY | | + + + + + + | RDW | 15.7 (H) | 11.5 - 15.0 % | [facility] | | | | | | DEPARTMENT | | | | | | OF | | | | | | PATHOLOGY | | + + + + + + | PLATELET | 887 (H) | 150 - 400 K/cu | [facility] | | | COUNT | | mm | DEPARTMENT | | [...] + + + + + | [facility] | [address] [facility] | [place] [address] | | | PATHOLOGY | [address] | | | + + + + + | [facility] | [address] [facility] | [place] [address] | | | PATHOLOGY | [address] | | | + + + + + PREALBUMIN (11/18/2005 6:00 AM PST) + + + + + + | Component | Value | Ref Range | Performed | Pathologist | | | | | At | Signature | + + + + + + | PREALBUMIN | 149 (L)Comment: | 180 - 445 mg/L | | | | | No Range Available for | | | | | | Children <58 Days. | | | | | | Test performed by | | | | | | [facility] | | | | | | [facility]. | | | | + + + + + + + + | Specimen | + + | | + + + + + + + | Performing | Address | City/State/Zipcode | Phone Number | | Organization | | | | + + + + + | [facility] | [address] | [place] [address] | | | LABORATORY | | | | + + + + + PHOSPHORUS, PLASMA (11/18/2005 6:00 AM PST) + +-------+ + + + | Component | Value | Ref Range | Performed | Pathologist | | | | | At | Signature | + +-------+ + + + | PHOSPHORUS, | 3.8 | 2.4 - 4.7 mg/dL | [facility] | | | PLASMA | | | DEPARTMENT | | | (LAB) | | | OF | | | | | | PATHOLOGY | | + +-------+ + + + + + | Specimen | + + | | + + + + + + + | Performing | Address | City/State/Zipcode | Phone Number | | Organization | | | | + + + + + | [facility] DEPARTMENT OF | [address] | [place] [address] | | | PATHOLOGY | [address] | | | + + + + + | [facility] DEPARTMENT OF | [address] | [place] [address] | | | PATHOLOGY | [address] | | | + + + + + TRIGLYCERIDES (11/18/2005 6:00 AM PST) + + + + + + | Component | Value | Ref Range | Performed | Pathologist | | | | | At | Signature | + + + + + + | TRIGLYCERID | 95Comment: | <200 mg/dL | [facility] | | | ES | Triglyceride Reference | | DEPARTMENT | | | | Range: | | OF | | | | Normal: <150 | | PATHOLOGY | | | | Borderline | | | | | | High: 150 - 199 | | | | | | | | | | | | High: 200 - 499 | | | | | | | | | | | | Very High: >=500 | | | | + + + + + + + + | Specimen | + + | | + + + + + + + | Performing | Address | City/State/Zipcode | Phone Number | | Organization | | | | + + + + + | [facility] DEPARTMENT OF | [address] | [place] [address] | | | PATHOLOGY | [address] | | | + + + + + | [facility] DEPARTMENT | [address] | [place] [address] | | | PATHOLOGY | [address] | | | + + + + + MAGNESIUM, PLASMA (11/18/2005 6:00 AM PST) + +-------+ + + + | Component | Value | Ref Range | Performed | Pathologist | | | | | At | Signature | + +-------+ + + + | MAGNESIUM,P | 2.1 | 1.8 - 2.5 mg/dL | [facility] | | | LASMA | | | DEPARTMENT | | | | | | OF | | | | | | PATHOLOGY | | + +-------+ + + + + + | Specimen | + + | | + + + + + + + | Performing | Address | City/State/Zipcode | Phone Number | | Organization | | | | + + + + + | [facility] | [address] [facility] | [place] [address] | | | PATHOLOGY | [address] | | | + + + + + | [facility] | [address] [place] [address] | [place] [address] | | | PATHOLOGY | [address] | | | + + + + + COMP METABOLIC SET (11/18/2005 6:00 AM PST) + +---------+ + + + | Component | Value | Ref Range | Performed | Pathologist | | | | | At | Signature | + +---------+ + + + | GLUCOSE, | 121 (H) | 65 - 110 mg/dL | [facility] | | | PLASMA | | | DEPARTMENT | | | (LAB) | | | OF | | | | | | PATHOLOGY | | + +---------+ + + + | BUN, PLASMA | 15 | 6 - 20 mg/dL | [facility] | | | (LAB) | | | DEPARTMENT | | | | | | OF | | | | | | PATHOLOGY | | + +---------+ + + + | CREATININE | 0.7 | 0.6 - 1.1 mg/dL | [facility] | | | PLASMA | | | DEPARTMENT | | | (LAB) | | | OF | | | | | | PATHOLOGY | | + +---------+ + + + | TOTAL | 5.4 (L) | 6.1 - 7.9 g/dL | [facility] | | | PROTEIN, | | | DEPARTMENT | | | PLASMA | | | OF | | | (LAB) | | | PATHOLOGY | | + +---------+ + + + | ALBUMIN, | 2.0 (L) | 3.5 - 4.7 g/dL | [facility] | | | PLASMA | | | DEPARTMENT | | | (LAB) | | | OF | | | | | | PATHOLOGY | | + +---------+ + + + | CALCIUM, | 8.2 (L) | 8.5 - 10.5 | [facility] | | | PLASMA | | mg/dL | DEPARTMENT | | | (LAB) | | | OF | | | | | | PATHOLOGY | | + +---------+ + + + | BILIRUBIN | 1.0 | 0.3 - 1.2 mg/dL | [facility] | | | TOTAL | | | DEPARTMENT | | | | | | OF | | | | | | PATHOLOGY | | + +---------+ + + + | ALK PHOS | 140 (H) | 42 - 98 U/L | [facility] | | | | | | DEPARTMENT | | | | | | OF | | | | | | PATHOLOGY | | + +---------+ + + + | AST(SGOT) | 8 (L) | 15 - 41 U/L | [facility] | | | | | | DEPARTMENT | | | | | | OF | | | | | | PATHOLOGY | | + +---------+ + + + | SODIUM, | 135 (L) | 136 - 145 | [facility] | | | PLASMA | | mmol/L | DEPARTMENT | | | (LAB) | | | OF | | | | | | PATHOLOGY | | + +---------+ + + + | POTASSIUM, | 3.8 | 3.5 - 5.1 | [facility] | | | PLASMA | | mmol/L | DEPARTMENT | | | (LAB) | | | OF | | | | | | PATHOLOGY | | + +---------+ + + + | CHLORIDE, | 103 | 98 - 107 mmol/L | [facility] | | | PLASMA | | | DEPARTMENT | | | (LAB) | | | OF | | | | | | PATHOLOGY | | + +---------+ + + + | TOTAL CO2, | 26 | 23 - 29 mmol/L | [facility] | | | PLASMA | | | DEPARTMENT | | | (LAB) | | | OF | | | | | | PATHOLOGY | | + +---------+ + + + | ALT (SGPT) | 9 (L) | 13 - 48 U/L | [facility] [...] | + + + + + | [facility] | [address] | [place] [address] | | | PATHOLOGY | [address] | | | + + + + + | [facility] DEPARTMENT OF | [address] | [place] [address] | | | PATHOLOGY | [address] | | | + + + + + BILIRUBIN, DIRECT (11/18/2005 6:00 AM PST) + +---------+ + + + | Component | Value | Ref Range | Performed | Pathologist | | | | | At | Signature | + +---------+ + + + | BILIRUBIN | 0.6 (H) | <0.4 mg/dL | [facility] | | | DIRECT | | | DEPARTMENT | | | | | | OF | | | | | | PATHOLOGY | | + +---------+ + + + + + | Specimen | + + | | + + + + + + + | Performing | Address | City/State/Zipcode | Phone Number | | Organization | | | | + + + + + | [facility] DEPARTMENT OF | [address] [facility] | [place] [address] | | | PATHOLOGY | [address] | | | + + + + + | [facility] DEPARTMENT OF | [facility] [facility] | [place] [address] | | | PATHOLOGY | [address] | | | + + + + + BASIC METABOLIC SET (11/17/2005 6:15 AM PST) + +---------+ + + + | Component | Value | Ref Range | Performed | Pathologist | | | | | At | Signature | + +---------+ + + + | GLUCOSE, | 120 (H) | 65 - 110 mg/dL | [facility] | | | PLASMA | | | DEPARTMENT | | | (LAB) | | | OF | | | | | | PATHOLOGY | | + +---------+ + + + | BUN, PLASMA | 16 | 6 - 20 mg/dL | [facility] | | | (LAB) | | | DEPARTMENT | | | | | | OF | | | | | | PATHOLOGY | | + +---------+ + + + | CREATININE | 0.7 | 0.6 - 1.1 mg/dL | [facility] | | | PLASMA | | | DEPARTMENT | | | (LAB) | | | OF | | | | | | PATHOLOGY | | + +---------+ + + + | SODIUM, | 133 (L) | 136 - 145 | [facility] | | | PLASMA | | mmol/L | DEPARTMENT | | | (LAB) | | | OF | | | | | | PATHOLOGY | | + +---------+ + + + | POTASSIUM, | 3.8 | 3.5 - 5.1 | [facility] | | | PLASMA | | mmol/L | DEPARTMENT | | | (LAB) | | | OF | | | | | | PATHOLOGY | | + +---------+ + + + | CHLORIDE, | 100 | 98 - 107 mmol/L | [facility] | | | PLASMA | | | DEPARTMENT | | | (LAB) | | | OF | | | | | | PATHOLOGY | | + +---------+ + + + | TOTAL CO2, | 26 | 23 - 29 mmol/L | [facility] | | | PLASMA | | | DEPARTMENT | | | (LAB) | | | OF | | | | | | PATHOLOGY | | + +---------+ + + + | CALCIUM, | 8.1 (L) | 8.5 - 10.5 | [facility] | | | PLASMA | | mg/dL | DEPARTMENT | | | (LAB) | | | OF | | | | | | PATHOLOGY | | + +---------+ + + + + + | Specimen | + + | | + + + + + + + | Performing | Address | City/State/Zipcode | Phone Number | | Organization | | | | + + + + + | [facility] DEPARTMENT OF | [address] | [place] [address] | | | PATHOLOGY | [address] | | | + + + + + | [facility] | [address] | [place] [address] | | | PATHOLOGY | [address] | | | + + + + + MAGNESIUM, PLASMA (11/15/2005 5:45 AM PST) + +-------+ + + + | Component | Value | Ref Range | Performed | Pathologist | | | | | At | Signature | + +-------+ + + + | MAGNESIUM,P | 2.2 | 1.8 - 2.5 mg/dL | [facility] | | | LASMA | | | DEPARTMENT | | | | | | OF | | | | | | PATHOLOGY | | + +-------+ + + + + + | Specimen | + + | | + + + + + + + | Performing | Address | City/State/Zipcode | Phone Number | | Organization | | | | + + + + + | [facility] | [address] [address] | [place] [address] | | | PATHOLOGY | [address] | | | + + + + + | [facility] | [address] [facility] [address] | [place] [address] | | | PATHOLOGY | [address] | | | + + + + + PHOSPHORUS, PLASMA (11/15/2005 5:45 AM PST) + +-------+ + + + | Component | Value | Ref Range | Performed | Pathologist | | | | | At | Signature | + +-------+ + + + | PHOSPHORUS, | 3.5 | 2.4 - 4.7 mg/dL | [facility] | | | PLASMA | | | DEPARTMENT | | | (LAB) | | | OF | | | | | | PATHOLOGY | | + +-------+ + + + + + | Specimen | + + | | + + + + + + + | Performing | Address | City/State/Zipcode | Phone Number | | Organization | | | | + + + + + | [facility] DEPARTMENT OF | [address] | [place] [address] | | | PATHOLOGY | [address] | | | + + + + + | [facility] DEPARTMENT OF | [address] | [place] [address] | | | PATHOLOGY | [address] | | | + + + + + BASIC METABOLIC SET (11/15/2005 5:45 AM PST) + +---------+ + + + | Component | Value | Ref Range | Performed | Pathologist | | | | | At | Signature | + +---------+ + + + | GLUCOSE, | 132 (H) | 65 - 110 mg/dL | [facility] | | | PLASMA | | | DEPARTMENT | | | (LAB) | | | OF | | | | | | PATHOLOGY | | + +---------+ + + + | BUN, PLASMA | 13 | 6 - 20 mg/dL | [facility] | | | (LAB) | | | DEPARTMENT | | | | | | OF | | | | | | PATHOLOGY | | + +---------+ + + + | CREATININE | 0.7 | 0.6 - 1.1 mg/dL | [facility] | | | PLASMA | | | DEPARTMENT | | | (LAB) | | | OF | | | | | | PATHOLOGY | | + +---------+ + + + | SODIUM, | 133 (L) | 136 - 145 | [facility] | | | PLASMA | | mmol/L | DEPARTMENT | | | (LAB) | | | OF | | | | | | PATHOLOGY | | + +---------+ + + + | POTASSIUM, | 4.2 | 3.5 - 5.1 | [facility] | | | PLASMA | | mmol/L | DEPARTMENT | | | (LAB) | | | OF | | | | | | PATHOLOGY | | + +---------+ + + + | CHLORIDE, | 101 | 98 - 107 mmol/L | [facility] | | | PLASMA | | | DEPARTMENT | | | (LAB) | | | OF | | | | | | PATHOLOGY | | + +---------+ + + + | TOTAL CO2, | 25 | 23 - 29 mmol/L | [facility] | | | PLASMA | | | DEPARTMENT | | | (LAB) | | | OF | | | | | | PATHOLOGY | | + +---------+ + + + | CALCIUM, | 8.3 (L) | 8.5 - 10.5 | [facility] | | | PLASMA | | mg/dL | DEPARTMENT | | | (LAB) | | | OF | | | [...] DEPARTMENT OF | [address] | [place] [address] | | | PATHOLOGY | [address] | | | + + + + + | [facility] | [address] | [place] [address] | | | PATHOLOGY | [address] | | | + + + + + CT ABDOMEN W CONTRAST (11/14/2005 2:21 PM PST) + + + + + + | Component | Value | Ref Range | Performed | Pathologist | | | | | At | Signature | + + + + + + | CT ABDOMEN | Radiologist 1: MARGARITA, | | | | | W CONTRAST | JAKE, MDCT abdomen and | | | | | | pelvis with oral and 145 | | | | | | cc intravenous | | | | | | omnipaque.Comparison: | | | | | | 11/07/2005.HISTORY: | | | | | | 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 11/04/05status | | | | | | post GENI, revision of | | | | | | sawant pouch including | | | | | | takedown ofefferent limb | | | | | | and construction of | | | | | | continent cutaneous | | | | | | channel viamonti | | | | | | subserosal tunneled | | | | | | fran-appendix. Enterotomy | | | | | | repair x | | | | | | 2.Findings:ABDOMEN: | | | | | | Small bilateral | | | | | | effusions with bibasilar | | | | | | dependentatelectasis. | | | | | | Liver, gallbladder,, and | | | | | | biliary system, | | | | | | pancreas,and spleen, and | | | | | | adrenal glands are | | | | | | normal. Left kidney is | | | | | | normal.Right renal | | | | | | multifocal parenchymal | | | | | | scarring with calictasis | | | | | | andoverlying | | | | | | parenchymal | | | | | | thinning/scarring shows | | | | | | persistent | | | | | | moderatehydroureteroneph | | | | | | rosis likely due to | | | | | | obstruction of the | | | | | | distalureter near the | | | | | | anastomosis with the | | | | | | diversion. Sawant pouch | | | | | | isidentified in the | | | | | | right upper quadrant | | | | | | with two percutaneous | | | | | | Foleyballoons within it, | | | | | | just medial to the | | | | | | gallbladder fundus. | | | | | | Themore inferior Humphrey | | | | | | catheter exits through | | | | | | the newly created | | | | | | neoappendix. There has | | | | | | been prior right | | | | | | ileocecectomy.PELVIS: | | | | | | Decreased amount of | | | | | | extravasated oral | | | | | | contrast | | | | | | materialsurrounding the | | | | | | right pelvic BAY drain | | | | | | which exits to the | | | | | | skinsurface in the right | | | | | | lower quadrant at site | | | | | | of previous efferentlimb | | | | | | takedown. A small | | | | | | amount of extraluminal | | | | | | gas is presentintermixed | | | | | | with extravasated oral | | | | | | contrast material. 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 | | | | | | There is a liquefying | | | | | | rightpelvic sidewall to | | | | | | .7 cm hematoma image 67. | | | | | | Postoperative | | | | | | fluidcollection in the | | | | | | left upper quadrant just | | | | | | inferior to be | | | | | | splenicflexure has | | | | | | decreased in size | | | | | | measuring 1.9 x 3.7 cm | | | | | | image 29, butwith | | | | | | increased rim | | | | | | enhancement. No new | | | | | | fluid collection | | | | | | isidentified. Oral | | | | | | contrast material is | | | | | | present in the colon | | | | | | anddistal small | | | | | | bowel.CONCLUSION:1. | | | | | | Organizing rim | | | | | | enhancing pelvic fluid | | | | | | collection | | | | | | surroundingthe pelvic BAY | | | | | | drain containing small | | | | | | residual amount of | | | | | | residualextravasated | | | | | | oral contrast material. | | | | | | No new fluid | | | | | | collection.Evolving | | | | | | postoperative left upper | | | | | | quadrant rim enhancing | | | | | | fluidcollection, | | | | | | decreased in size but | | | | | | with increased rim | | | | | | enhancement. | | | | + + + + + + + + | Specimen | + + | | + + + +---------+ + + | Performing | Address | City/State/Zipcode | Phone Number | | Organization | | | | + +---------+ + + | [facility] DEPARTMENT OF | | | | | RADIOLOGY | | | | + +---------+ + + CT PELVIS W CONTRAST (11/14/2005 2:21 PM PST) + + + + + + | Component | Value | Ref Range | Performed | Pathologist | | | | | At | Signature | + + + + + + | CT PELVIS W | Radiologist 1: DOBOS, | | | | | CONTRAST | JAKE, MDCT abdomen and | | | | | | pelvis with oral and 145 | | | | | | cc intravenous | | | | | | omnipaque.Comparison: | | | | | | 11/07/2005.HISTORY: | | | | | | 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 11/04/05status | | | | | | post GENI, revision of | | | | | | sawant pouch including | | | | | | takedown ofefferent limb | | | | | | and construction of | | | | | | continent cutaneous | | | | | | channel viamonti | | | | | | subserosal tunneled | | | | | | fran-appendix. Enterotomy | | | | | | repair x | | | | | | 2.Findings:ABDOMEN: | | | | | | Small bilateral | | | | | | effusions with bibasilar | | | | | | dependentatelectasis. | | | | | | Liver, gallbladder,, and | | | | | | biliary system, | | | | | | pancreas,and spleen, and | | | | | | adrenal glands are | | | | | | normal. Left kidney is | | | | | | normal.Right renal | | | | | | multifocal parenchymal | | | | | | scarring with calictasis | | | | | | andoverlying | | | | | | parenchymal | | | | | | thinning/scarring shows | | | | | | persistent | | | | | | moderatehydroureteroneph | | | | | | rosis likely due to | | | | | | obstruction of the | | | | | | distalureter near the | | | | | | anastomosis with the | | | | | | diversion. Sawant pouch | | | | | | isidentified in the | | | | | | right upper quadrant | | | | | | with two percutaneous | | | | | | Foleyballoons within it, | | | | | | just medial to the | | | | | | gallbladder fundus. | | | | | | Themore inferior Humphrey | | | | | | catheter exits through | | | | | | the newly created | | | | | | neoappendix. There has | | | | | | been prior right | | | | | | ileocecectomy.PELVIS: | | | | | | Decreased amount of | | | | | | extravasated oral | | | | | | contrast | | | | | | materialsurrounding the | | | | | | right pelvic BAY drain | | | | | | which exits to the | | | | | | skinsurface in the right | | | | | | lower quadrant at site | | | | | | of previous efferentlimb | | | | | | takedown. A small | | | | | | amount of extraluminal | | | | | | gas is presentintermixed | | | | | | with extravasated oral | | | | | | contrast material. 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 | | | | | | There is a liquefying | | | | | | rightpelvic sidewall to | | | | | | .7 cm hematoma image 67. | | | | | | Postoperative | | | | | | fluidcollection in the | | | | | | left upper quadrant just | | | | | | inferior to be | | | | | | splenicflexure has | | | | | | decreased in size | | | | | | measuring 1.9 x 3.7 cm | | | | | | image 29, butwith | | | | | | increased rim | | | | | | enhancement. No new | | | | | | fluid collection | | | | | | isidentified. Oral | | | | | | contrast material is | | | | | | present in the colon | | | | | | anddistal small | | | | | | bowel.CONCLUSION:1. | | | | | | Organizing rim | | | | | | enhancing pelvic fluid | | | | | | collection | | | | | | surroundingthe pelvic BAY | | | | | | drain containing small | | | | | | residual amount of | | | | | | residualextravasated | | | | | | oral contrast material. | | | | | | No new fluid | | | | | | collection.Evolving | | | | | | postoperative left upper | | | | | | quadrant rim enhancing | | | | | | fluidcollection, | | | | | | decreased in size but | | | | | | with increased rim | | | | | | enhancement. | | | | + + + + + + + + | Specimen | + + | | + + + +---------+ + + | Performing | Address | City/State/Zipcode | Phone Number | | Organization | | | | + +---------+ + + | [facility] | | | | | RADIOLOGY | | | | + +---------+ + + PHOSPHORUS, PLASMA (11/14/2005 5:00 AM PST) + +-------+ + + + | Component | Value | Ref Range | Performed | Pathologist | | | | | At | Signature | + +-------+ + + + | PHOSPHORUS, | 3.4 | 2.4 - 4.7 mg/dL | [facility] | | | PLASMA | | | DEPARTMENT | | | (LAB) | | | OF | | | | | | PATHOLOGY | | + +-------+ + + + + + | Specimen | + + | | + + + + + + + | Performing | Address | City/State/Zipcode | Phone Number | | Organization | | | | + + + + + | [facility] DEPARTMENT OF | [address] | [place] [address] | | | PATHOLOGY | [address] | | | + + + + + | [facility] DEPARTMENT OF | [address] | [place] [address] | | | PATHOLOGY | [address] | | | + + + + + MAGNESIUM, PLASMA (11/14/2005 5:00 AM PST) + +-------+ + + + | Component | Value | Ref Range | Performed | Pathologist | | | | | At | Signature | + +-------+ + + + | MAGNESIUM,P | 2.1 | 1.8 - 2.5 mg/dL | [facility] | | | LASMA | | | DEPARTMENT | | | | | | OF | | | | | | PATHOLOGY | | + +-------+ + + + + + | Specimen | + + | | + + + + + + + | Performing | Address | City/State/Zipcode | Phone Number | | Organization | | | | + + + + + | [facility] | [address] [facility] [address] | [place] [address] | | | PATHOLOGY | [address] | | | + + + + + | [facility] | [address] [address] | [place] [address] | | | PATHOLOGY | [address] | | | + + + + + BASIC METABOLIC SET (11/14/2005 5:00 AM PST) + +---------+ + + + | Component | Value | Ref Range | Performed | Pathologist | | | | | At | Signature | + +---------+ + + + | GLUCOSE, | 123 (H) | 65 - 110 mg/dL | [facility] | | | PLASMA | | | DEPARTMENT | | | (LAB) | | | OF | | | | | | PATHOLOGY | | + +---------+ + + + | BUN, PLASMA | 10 | 6 - 20 mg/dL | [facility] | | | (LAB) | | | DEPARTMENT | | | | | | OF | | | | | | PATHOLOGY | | + +---------+ + + + | CREATININE | 0.6 | 0.6 - 1.1 mg/dL | [facility] | | | PLASMA | | | DEPARTMENT | | | (LAB) | | | OF | | | | | | PATHOLOGY | | + +---------+ + + + | SODIUM, | 135 (L) | 136 - 145 | [facility] | | | PLASMA | | mmol/L | DEPARTMENT | | | (LAB) | | | OF | | | | | | PATHOLOGY | | + +---------+ + + + | POTASSIUM, | 3.8 | 3.5 - 5.1 | [facility] | | | PLASMA | | mmol/L | DEPARTMENT | | | (LAB) | | | OF | | | | | | PATHOLOGY | | + +---------+ + + + | CHLORIDE, | 101 | 98 - 107 mmol/L | [facility] | | | PLASMA | | | DEPARTMENT | | | (LAB) | | | OF | | | | | | PATHOLOGY | | + +---------+ + + + | TOTAL CO2, | 26 | 23 - 29 mmol/L | [facility] | | | PLASMA | | | DEPARTMENT | | | (LAB) | | | OF | | | | | | PATHOLOGY | | + +---------+ + + + | CALCIUM, | 8.0 (L) | 8.5 - 10.5 | [facility] | | | PLASMA | | mg/dL | DEPARTMENT | | | (LAB) | | | OF | | | | | | PATHOLOGY | | + +---------+ + + + + + | Specimen | + + | | + + + + + + + | Performing | Address | City/State/Zipcode | Phone Number | | Organization | | | | + + + + + | [facility] | [address] | [place] [address] | | | PATHOLOGY | [address] | | | + + + + + | [facility] | [address] | [place] [address] | | | PATHOLOGY | [address] | | | + + + + + PHOSPHORUS, PLASMA (11/13/2005 4:15 AM PST) + +-------+ + + + | Component | Value | Ref Range | Performed | Pathologist | | | | | At | Signature | + +-------+ + + + | PHOSPHORUS, | 3.5 | 2.4 - 4.7 mg/dL | [facility] | | | PLASMA | | | DEPARTMENT | | | (LAB) | | | OF | | | | | | PATHOLOGY | | + +-------+ + + + + + | Specimen | + + | | + + + + + + + | Performing | Address | City/State/Zipcode | Phone Number | | Organization | | | | + + + + + | [facility] | [address] [facility] | [place] [address] | | | PATHOLOGY | [address] | | | + + + + + | [facility] | [address] [facility] | [place] [address] | | | PATHOLOGY | [address] | | | + + + + + MAGNESIUM, PLASMA (11/13/2005 4:15 AM PST) + +-------+ + + + | Component | Value | Ref Range | Performed | Pathologist | | | | | At | Signature | + +-------+ + + + | MAGNESIUM,P | 2.2 | 1.8 - 2.5 mg/dL | [facility] | | | LASMA | | | DEPARTMENT | | | | | | OF | | | | | | PATHOLOGY | | + +-------+ + + + + + | Specimen | + + | | + + + + + + + | Performing | Address | City/State/Zipcode | Phone Number | | Organization | | | | + + + + + | [facility] | [address] [address] | [place] [address] | | | PATHOLOGY | [address] | | | + + + + + | [facility] | [address] [facility] | [place] [address] | | | PATHOLOGY | [address] | | | + + + + + BASIC METABOLIC SET (11/13/2005 4:15 AM PST) + +---------+ + + + | Component | Value | Ref Range | Performed | Pathologist | | | | | At | Signature | + +---------+ + + + | GLUCOSE, | 134 (H) | 65 - 110 mg/dL | [facility] | | | PLASMA | | | DEPARTMENT | | | (LAB) | | | OF | | | | | | PATHOLOGY | | + +---------+ + + + | BUN, PLASMA | 12 | 6 - 20 mg/dL | [facility] | | | (LAB) | | | DEPARTMENT | | | | | | OF | | | | | | PATHOLOGY | | + +---------+ + + + | CREATININE | 0.7 | 0.6 - 1.1 mg/dL | [facility] | | | PLASMA | | | DEPARTMENT | | | (LAB) | | | OF | | | | | | PATHOLOGY | | + +---------+ + + + | SODIUM, | 135 (L) | 136 - 145 | [facility] | | | PLASMA | | mmol/L | DEPARTMENT | | | (LAB) | | | OF | | | | | | PATHOLOGY | | + +---------+ + + + | POTASSIUM, | 4.0 | 3.5 - 5.1 | [facility] | | | PLASMA | | mmol/L | DEPARTMENT | | | (LAB) | | | OF | | | | | | PATHOLOGY | | + +---------+ + + + | CHLORIDE, | 103 | 98 - 107 mmol/L | [facility] | | | PLASMA | | | DEPARTMENT | | | (LAB) | | | OF | | | | | | PATHOLOGY | | + +---------+ + + + | TOTAL CO2, | 27 | 23 - 29 mmol/L | [facility] | | | PLASMA | | | DEPARTMENT | | | (LAB) | | | OF | | | | | | PATHOLOGY | | + +---------+ + + + | CALCIUM, | 7.9 (L) | 8.5 - 10.5 | [facility] | | | PLASMA | | mg/dL | DEPARTMENT | | | (LAB) | | | OF | | | [...] DEPARTMENT OF | [address] | [place] [address] | | | PATHOLOGY | [address] | | | + + + + + | [facility] DEPARTMENT OF | [address] | [place] [address] | | | PATHOLOGY | [address] | | | + + + + + MAGNESIUM, PLASMA (11/12/2005 5:30 AM PST) + +-------+ + + + | Component | Value | Ref Range | Performed | Pathologist | | | | | At | Signature | + +-------+ + + + | MAGNESIUM,P | 2.2 | 1.8 - 2.5 mg/dL | [facility] | | | LASMA | | | DEPARTMENT | | | | | | OF | | | | | | PATHOLOGY | | + +-------+ + + + + + | Specimen | + + | | + + + + + + + | Performing | Address | City/State/Zipcode | Phone Number | | Organization | | | | + + + + + | [facility] DEPARTMENT OF | [address] | [place] [address] | | | PATHOLOGY | [address] | | | + + + + + | [facility] DEPARTMENT OF | [address] | [place] [address] | | | PATHOLOGY | [address] | | | + + + + + PHOSPHORUS, PLASMA (11/12/2005 5:30 AM PST) + +-------+ + + + | Component | Value | Ref Range | Performed | Pathologist | | | | | At | Signature | + +-------+ + + + | PHOSPHORUS, | 3.3 | 2.4 - 4.7 mg/dL | [facility] | | | PLASMA | | | DEPARTMENT | | | (LAB) | | | OF | | | | | | PATHOLOGY | | + +-------+ + + + + + | Specimen | + + | | + + + + + + + | Performing | Address | City/State/Zipcode | Phone Number | | Organization | | | | + + + + + | [facility] DEPARTMENT OF | [address] | [place], [place] [address] | | | PATHOLOGY | [address] | | | + + + + + | [facility] DEPARTMENT OF | [address] | [place] [address] | | | PATHOLOGY | [address] | | | + + + + + BASIC METABOLIC SET (11/12/2005 5:30 AM PST) + +---------+ + + + | Component | Value | Ref Range | Performed | Pathologist | | | | | At | Signature | + +---------+ + + + | GLUCOSE, | 121 (H) | 65 - 110 mg/dL | [facility] | | | PLASMA | | | DEPARTMENT | | | (LAB) | | | OF | | | | | | PATHOLOGY | | + +---------+ + + + | BUN, PLASMA | 8 | 6 - 20 mg/dL | [facility] | | | (LAB) | | | DEPARTMENT | | | | | | OF | | | | | | PATHOLOGY | | + +---------+ + + + | CREATININE | 0.6 | 0.6 - 1.1 mg/dL | [facility] | | | PLASMA | | | DEPARTMENT | | | (LAB) | | | OF | | | | | | PATHOLOGY | | + +---------+ + + + | SODIUM, | 133 (L) | 136 - 145 | [facility] | | | PLASMA | | mmol/L | DEPARTMENT | | | (LAB) | | | OF | | | | | | PATHOLOGY | | + +---------+ + + + | POTASSIUM, | 3.8 | 3.5 - 5.1 | [facility] | | | PLASMA | | mmol/L | DEPARTMENT | | | (LAB) | | | OF | | | | | | PATHOLOGY | | + +---------+ + + + | CHLORIDE, | 101 | 98 - 107 mmol/L | [facility] | | | PLASMA | | | DEPARTMENT | | | (LAB) | | | OF | | | | | | PATHOLOGY | | + +---------+ + + + | TOTAL CO2, | 27 | 23 - 29 mmol/L | [facility] | | | PLASMA | | | DEPARTMENT | | | (LAB) | | | OF | | | | | | PATHOLOGY | | + +---------+ + + + | CALCIUM, | 8.0 (L) | 8.5 - 10.5 | [facility] | | | PLASMA | | mg/dL | DEPARTMENT | | | (LAB) | | | OF | | | [...] DEPARTMENT OF | [address] | [place] [address] | | | PATHOLOGY | [address] | | | + + + + + | [facility] DEPARTMENT | [address] | [place] [address] | | | PATHOLOGY | [address] | | | + + + + + DIFFERENTIAL (11/12/2005 5:30 AM PST) + +---------+ + + + | Component | Value | Ref Range | Performed | Pathologist | | | | | At | Signature | + +---------+ + + + | NEUTROPHIL | 75 (H) | 50 - 70 % | [facility] | | | % | | | DEPARTMENT | | | | | | OF | | | | | | PATHOLOGY | | + +---------+ + + + | LYMPHOCYTE | 8 (L) | 18 - 42 % | [facility] | | | % | | | DEPARTMENT | | | | | | OF | | | | | | PATHOLOGY | | + +---------+ + + + | MONOCYTE % | 12 (H) | 2 - 8 % | [facility] | | | | | | DEPARTMENT | | | | | | OF | | | | | | PATHOLOGY | | + +---------+ + + + | EOS % | 5 (H) | 1 - 3 % | [facility] | | | | | | DEPARTMENT | | | | | | OF | | | | | | PATHOLOGY | | + +---------+ + + + | BASO % | 0 | <3 % | [facility] | | | | | | DEPARTMENT | | | | | | OF | | | | | | PATHOLOGY | | + +---------+ + + + | NEUTROPHIL | 9.4 (H) | 1.8 - 7.7 K/cu | [facility] | | | # | | mm | DEPARTMENT | | | | | | OF | | | | | | PATHOLOGY | | + +---------+ + + + | LYMPHOCYTE | 1.0 | 1.0 - 4.8 K/cu | [facility] | | | # | | mm | DEPARTMENT | | | | | | OF | | | | | | PATHOLOGY | | + +---------+ + + + | MONOCYTE # | 1.5 (H) | 0.1 - 0.6 K/cu | [facility] | | | | | mm | DEPARTMENT | | | | | | OF | | | | | | PATHOLOGY | | + +---------+ + + + | EOS # | 0.6 (H) | <0.6 K/cu mm | [facility] | | | | | | DEPARTMENT | | | | | | OF | | | | | | PATHOLOGY | | + +---------+ + + + | BASO # | 0.0 | <0.3 | [facility] | | | | | [...] + + + + + | [facility] | [address] [facility] | [place] [address] | | | PATHOLOGY | [address] | | | + + + + + | [facility] | [address] [place] [address] | [place] [address] | | | PATHOLOGY | [address] | | | + + + + + CBC, WITH DIFFERENTIAL (11/12/2005 5:30 AM PST) + + + + + + | Component | Value | Ref Range | Performed | Pathologist | | | | | At | Signature | + + + + + + | WHITE CELL | 12.5 (H) | 4.4 - 11.0 K/cu | [facility] | | | COUNT | | mm | DEPARTMENT | | | | | | OF | | | | | | PATHOLOGY | | + + + + + + | RED CELL | 3.25 (L) | 4.00 - 5.20 | [facility] | | | COUNT | | M/cu mm | DEPARTMENT | | | | | | OF | | | | | | PATHOLOGY | | + + + + + + | HEMOGLOBIN | 10.8 (L) | 12.0 - 16.0 | [facility] | | | | | g/dL | DEPARTMENT | | | | | | OF | | | | | | PATHOLOGY | | + + + + + + | HEMATOCRIT | 31.0 (L) | 36.0 - 46.0 % | [facility] | | | | | | DEPARTMENT | | | | | | OF | | | | | | PATHOLOGY | | + + + + + + | MCV | 95.3 | 80.0 - 96.0 fL | [facility] | | | | | | DEPARTMENT | | | | | | OF | | | | | | PATHOLOGY | | + + + + + + | MCHC | 34.7 | 33.4 - 35.5 | [facility] | | | | | g/dL | DEPARTMENT | | | | | | OF | | | | | | PATHOLOGY | | + + + + + + | RDW | 15.8 (H) | 11.5 - 15.0 % | [facility] | | | | | | DEPARTMENT | | | | | | OF | | | | | | PATHOLOGY | | + + + + + + | PLATELET | 668 (H) | 150 - 400 K/cu | [facility] | | | COUNT | | mm | DEPARTMENT | | [...] | + + + + + | [facility] DEPARTMENT OF | [facility] | [place] [address] | | | PATHOLOGY | [address] | | | + + + + + | [facility] DEPARTMENT OF | [address] | [place] [address] | | | PATHOLOGY | [address] | | | + + + + + PREALBUMIN (11/11/2005 6:30 AM PST) + + + + + + | Component | Value | Ref Range | Performed | Pathologist | | | | | At | Signature | + + + + + + | PREALBUMIN | 113 (L)Comment: | 180 - 445 mg/L | | | | | No Range Available for | | | | | | Children <58 Days. | | | | | | Test performed by | | | | | | [facility] | | | | | | [facility]. | | | | + + + + + + + + | Specimen | + + | | + + + + + + + | Performing | Address | City/State/Zipcode | Phone Number | | Organization | | | | + + + + + | [facility] | [address] | [place] [address] | | | LABORATORY | | | | + + + + + TRIGLYCERIDES (11/11/2005 6:30 AM PST) + + + + + + | Component | Value | Ref Range | Performed | Pathologist | | | | | At | Signature | + + + + + + | TRIGLYCERID | 125Comment: | <200 mg/dL | [facility] | | | ES | Triglyceride Reference | | DEPARTMENT | | | | Range: | | OF | | | | Normal: <150 | | PATHOLOGY | | | | Borderline | | | | | | High: 150 - 199 | | | | | | | | | | | | High: 200 - 499 | | | | | | | | | | | | Very High: >=500 | | | | + + + + + + + + | Specimen | + + | | + + + + + + + | Performing | Address | City/State/Zipcode | Phone Number | | Organization | | | | + + + + + | [facility] DEPARTMENT OF | [address] | [place] [address] | | | PATHOLOGY | [address] | | | + + + + + | [facility] DEPARTMENT OF | [address] | [place] [address] | | | PATHOLOGY | [address] | | | + + + + + PHOSPHORUS, PLASMA (11/11/2005 6:30 AM PST) + +---------+ + + + | Component | Value | Ref Range | Performed | Pathologist | | | | | At | Signature | + +---------+ + + + | PHOSPHORUS, | 2.1 (L) | 2.4 - 4.7 mg/dL | [facility] | | | PLASMA | | | DEPARTMENT | | | (LAB) | | | OF | | | | | | PATHOLOGY | | + +---------+ + + + + + | Specimen | + + | | + + + + + + + | Performing | Address | City/State/Zipcode | Phone Number | | Organization | | | | + + + + + | [facility] DEPARTMENT OF | [address] | [place] [address] | | | PATHOLOGY | [address] | | | + + + + + | [facility] DEPARTMENT OF | [address] | [place] [address] | | | PATHOLOGY | [address] | | | + + + + + CBC ONLY WITH PLATELET (11/11/2005 6:30 AM PST) + + + + + + | Component | Value | Ref Range | Performed | Pathologist | | | | | At | Signature | + + + + + + | WHITE CELL | 11.1 (H) | 4.4 - 11.0 K/cu | [facility] | | | COUNT | | mm | DEPARTMENT | | | | | | OF | | | | | | PATHOLOGY | | + + + + + + | RED CELL | 3.19 (L) | 4.00 - 5.20 | [facility] | | | COUNT | | M/cu mm | DEPARTMENT | | | | | | OF | | | | | | PATHOLOGY | | + + + + + + | HEMOGLOBIN | 10.7 (L) | 12.0 - 16.0 | [facility] | | | | | g/dL | DEPARTMENT | | | | | | OF | | | | | | PATHOLOGY | | + + + + + + | HEMATOCRIT | 30.3 (L) | 36.0 - 46.0 % | [facility] | | | | | | DEPARTMENT | | | | | | OF | | | | | | PATHOLOGY | | + + + + + + | MCV | 95.0 | 80.0 - 96.0 fL | [facility] | | | | | | DEPARTMENT | | | | | | OF | | | | | | PATHOLOGY | | + + + + + + | MCHC | 35.2 | 33.4 - 35.5 | [facility] | | | | | g/dL | DEPARTMENT | | | | | | OF | | | | | | PATHOLOGY | | + + + + + + | RDW | 15.8 (H) | 11.5 - 15.0 % | [facility] | | | | | | DEPARTMENT | | | | | | OF | | | | | | PATHOLOGY | | + + + + + + | PLATELET | 536 (H) | 150 - 400 K/cu | [facility] | | | COUNT | | mm | DEPARTMENT | | [...] + + + + + | [facility] | [address] [facility] | [place] [address] | | | PATHOLOGY | [address] | | | + + + + + | [facility] | [address] [place] [address] | [place] [address] | | | PATHOLOGY | [address] | | | + + + + + MAGNESIUM, PLASMA (11/11/2005 6:30 AM PST) + +-------+ + + + | Component | Value | Ref Range | Performed | Pathologist | | | | | At | Signature | + +-------+ + + + | MAGNESIUM,P | 2.1 | 1.8 - 2.5 mg/dL | [facility] | | | LASMA | | | DEPARTMENT | | | | | | OF | | | | | | PATHOLOGY | | + +-------+ + + + + + | Specimen | + + | | + + + + + + + | Performing | Address | City/State/Zipcode | Phone Number | | Organization | | | | + + + + + | [facility] DEPARTMENT OF | [address] | [place] [address] | | | PATHOLOGY | [address] | | | + + + + + | [facility] DEPARTMENT OF | [address] | [place] [address] | | | PATHOLOGY | [address] | | | + + + + + BILIRUBIN, DIRECT (11/11/2005 6:30 AM PST) + +---------+ + + + | Component | Value | Ref Range | Performed | Pathologist | | | | | At | Signature | + +---------+ + + + | BILIRUBIN | 0.5 (H) | <0.4 mg/dL | [facility] | | | DIRECT | | | DEPARTMENT | | | | | | OF | | | | | | PATHOLOGY | | + +---------+ + + + + + | Specimen | + + | | + + + + + + + | Performing | Address | City/State/Zipcode | Phone Number | | Organization | | | | + + + + + | [facility] | [address] | [place] [address] | | | PATHOLOGY | [address] | | | + + + + + | [facility] | [address] [place] [address] [address] | [place] [address] | | | PATHOLOGY | [address] | | | + + + + + COMP METABOLIC SET (11/11/2005 6:30 AM PST) + +---------+ + + + | Component | Value | Ref Range | Performed | Pathologist | | | | | At | Signature | + +---------+ + + + | GLUCOSE, | 152 (H) | 65 - 110 mg/dL | [facility] | | | PLASMA | | | DEPARTMENT | | | (LAB) | | | OF | | | | | | PATHOLOGY | | + +---------+ + + + | BUN, PLASMA | 5 (L) | 6 - 20 mg/dL | [facility] | | | (LAB) | | | DEPARTMENT | | | | | | OF | | | | | | PATHOLOGY | | + +---------+ + + + | CREATININE | 0.5 (L) | 0.6 - 1.1 mg/dL | [facility] | | | PLASMA | | | DEPARTMENT | | | (LAB) | | | OF | | | | | | PATHOLOGY | | + +---------+ + + + | TOTAL | 5.1 (L) | 6.1 - 7.9 g/dL | [facility] | | | PROTEIN, | | | DEPARTMENT | | | PLASMA | | | OF | | | (LAB) | | | PATHOLOGY | | + +---------+ + + + | ALBUMIN, | 1.9 (L) | 3.5 - 4.7 g/dL | [facility] | | | PLASMA | | | DEPARTMENT | | | (LAB) | | | OF | | | | | | PATHOLOGY | | + +---------+ + + + | CALCIUM, | 7.9 (L) | 8.5 - 10.5 | [facility] | | | PLASMA | | mg/dL | DEPARTMENT | | | (LAB) | | | OF | | | | | | PATHOLOGY | | + +---------+ + + + | BILIRUBIN | 0.9 | 0.3 - 1.2 mg/dL | [facility] | | | TOTAL | | | DEPARTMENT | | | | | | OF | | | | | | PATHOLOGY | | + +---------+ + + + | ALK PHOS | 84 | 42 - 98 U/L | [facility] | | | | | | DEPARTMENT | | | | | | OF | | | | | | PATHOLOGY | | + +---------+ + + + | AST(SGOT) | 18 | 15 - 41 U/L | [facility] | | | | | | DEPARTMENT | | | | | | OF | | | | | | PATHOLOGY | | + +---------+ + + + | SODIUM, | 133 (L) | 136 - 145 | [facility] | | | PLASMA | | mmol/L | DEPARTMENT | | | (LAB) | | | OF | | | | | | PATHOLOGY | | + +---------+ + + + | POTASSIUM, | 3.1 (L) | 3.5 - 5.1 | [facility] | | | PLASMA | | mmol/L | DEPARTMENT | | | (LAB) | | | OF | | | | | | PATHOLOGY | | + +---------+ + + + | CHLORIDE, | 102 | 98 - 107 mmol/L | [facility] | | | PLASMA | | | DEPARTMENT | | | (LAB) | | | OF | | | | | | PATHOLOGY | | + +---------+ + + + | TOTAL CO2, | 27 | 23 - 29 mmol/L | [facility] | | | PLASMA | | | DEPARTMENT | | | (LAB) | | | OF | | | | | | PATHOLOGY | | + +---------+ + + + | ALT (SGPT) | 13 | 13 - 48 U/L | [facility] [...] DEPARTMENT OF | [address] | [place] [address] | | | PATHOLOGY | [address] | | | + + + + + | [facility] DEPARTMENT OF | [address] | [place] [address] | | | PATHOLOGY | [address] | | | + + + + + PHOSPHORUS, PLASMA (11/09/2005 4:00 AM PST) + +---------+ + + + | Component | Value | Ref Range | Performed | Pathologist | | | | | At | Signature | + +---------+ + + + | PHOSPHORUS, | 1.4 (L) | 2.4 - 4.7 mg/dL | [facility] | | | PLASMA | | | DEPARTMENT | | | (LAB) | | | OF | | | | | | PATHOLOGY | | + +---------+ + + + + + | Specimen | + + | | + + + + + + + | Performing | Address | City/State/Zipcode | Phone Number | | Organization | | | | + + + + + | [facility] DEPARTMENT OF | [address] [facility] | [place] [address] | | | PATHOLOGY | [address] | | | + + + + + | [facility] DEPARTMENT OF | [address] [facility] | [place] [address] | | | PATHOLOGY | [address] | | | + + + + + MAGNESIUM, PLASMA (11/09/2005 4:00 AM PST) + +-------+ + + + | Component | Value | Ref Range | Performed | Pathologist | | | | | At | Signature | + +-------+ + + + | MAGNESIUM,P | 2.0 | 1.8 - 2.5 mg/dL | [facility] | | | LASMA | | | DEPARTMENT | | | | | | OF | | | | | | PATHOLOGY | | + +-------+ + + + + + | Specimen | + + | | + + + + + + + | Performing | Address | City/State/Zipcode | Phone Number | | Organization | | | | + + + + + | [facility] DEPARTMENT [facility] | [address] | [place] [address] | | | PATHOLOGY | [address] | | | + + + + + | [facility] DEPARTMENT OF | [address] | [place] [address] | | | PATHOLOGY | [address] | | | + + + + + CBC ONLY WITH PLATELET (11/09/2005 4:00 AM PST) + + + + + + | Component | Value | Ref Range | Performed | Pathologist | | | | | At | Signature | + + + + + + | WHITE CELL | 8.5 | 4.4 - 11.0 K/cu | [facility] | | | COUNT | | mm | DEPARTMENT | | | | | | OF | | | | | | PATHOLOGY | | + + + + + + | RED CELL | 2.61 (L) | 4.00 - 5.20 | [facility] | | | COUNT | | M/cu mm | DEPARTMENT | | | | | | OF | | | | | | PATHOLOGY | | + + + + + + | HEMOGLOBIN | 8.7 (L) | 12.0 - 16.0 | [facility] | | | | | g/dL | DEPARTMENT | | | | | | OF | | | | | | PATHOLOGY | | + + + + + + | HEMATOCRIT | 25.1 (L) | 36.0 - 46.0 % | [facility] | | | | | | DEPARTMENT | | | | | | OF | | | | | | PATHOLOGY | | + + + + + + | MCV | 96.4 (H) | 80.0 - 96.0 fL | [facility] | | | | | | DEPARTMENT | | | | | | OF | | | | | | PATHOLOGY | | + + + + + + | MCHC | 34.5 | 33.4 - 35.5 | [facility] | | | | | g/dL | DEPARTMENT | | | | | | OF | | | | | | PATHOLOGY | | + + + + + + | RDW | 16.6 (H) | 11.5 - 15.0 % | [facility] | | | | | | DEPARTMENT | | | | | | OF | | | | | | PATHOLOGY | | + + + + + + | PLATELET | 286 | 150 - 400 K/cu | [facility] | | | COUNT | | mm | DEPARTMENT | | [...] + + + + + | [facility] | [address] [facility] [facility] | [place] [address] | | | PATHOLOGY | [address] | | | + + + + + | [facility] | [address] [facility] [facility] | [place] [address] | | | PATHOLOGY | [address] | | | + + + + + BASIC METABOLIC SET (11/09/2005 4:00 AM PST) + +---------+ + + + | Component | Value | Ref Range | Performed | Pathologist | | | | | At | Signature | + +---------+ + + + | GLUCOSE, | 154 (H) | 65 - 110 mg/dL | [facility] | | | PLASMA | | | DEPARTMENT | | | (LAB) | | | OF | | | | | | PATHOLOGY | | + +---------+ + + + | BUN, PLASMA | 3 (L) | 6 - 20 mg/dL | [facility] | | | (LAB) | | | DEPARTMENT | | | | | | OF | | | | | | PATHOLOGY | | + +---------+ + + + | CREATININE | 0.7 | 0.6 - 1.1 mg/dL | [facility] | | | PLASMA | | | DEPARTMENT | | | (LAB) | | | OF | | | | | | PATHOLOGY | | + +---------+ + + + | SODIUM, | 136 | 136 - 145 | [facility] | | | PLASMA | | mmol/L | DEPARTMENT | | | (LAB) | | | OF | | | | | | PATHOLOGY | | + +---------+ + + + | POTASSIUM, | 3.1 (L) | 3.5 - 5.1 | [facility] | | | PLASMA | | mmol/L | DEPARTMENT | | | (LAB) | | | OF | | | | | | PATHOLOGY | | + +---------+ + + + | CHLORIDE, | 106 | 98 - 107 mmol/L | [facility] | | | PLASMA | | | DEPARTMENT | | | (LAB) | | | OF | | | | | | PATHOLOGY | | + +---------+ + + + | TOTAL CO2, | 25 | 23 - 29 mmol/L | [facility] | | | PLASMA | | | DEPARTMENT | | | (LAB) | | | OF | | | | | | PATHOLOGY | | + +---------+ + + + | CALCIUM, | 7.5 (L) | 8.5 - 10.5 | [facility] | | | PLASMA | | mg/dL | DEPARTMENT | | | (LAB) | | | OF | | | | | | PATHOLOGY | | + +---------+ + + + + + | Specimen | + + | | + + + + + + + | Performing | Address | City/State/Zipcode | Phone Number | | Organization | | | | + + + + + | [facility] | [address] | [place] [address] | | | PATHOLOGY | [address] | | | + + + + + | [facility] | [address] [address] | [place] [address] | | | PATHOLOGY | [address] | | | + + + + + CHEST FEED TUBE EVAL XRAY (11/08/2005 4:04 PM PST) + + + + + + | Component | Value | Ref Range | Performed | Pathologist | | | | | At | Signature | + + + + + + | CHEST FEED | Radiologist 1: MARGARITA, | | | | | TUBE EVAL | JAKE, MDPortable chest. | | | | | XRAY | Slight improvement in | | | | | | patchy bibasilar | | | | | | atelectasis. NG | | | | | | tubeplaced with tip | | | | | | coiled in the fundus. | | | | | | A second parallel | | | | | | catheterprojects over | | | | | | the mediastinum with | | | | | | distal tip overlying the | | | | | | [id number] body. | | | | | | CONCLUSION: 1. NG tube | | | | | | coiled in fundus. | | | | + + + + + + + + | Specimen | + + | | + + + +---------+ + + | Performing | Address | City/State/Zipcode | Phone Number | | Organization | | | | + +---------+ + + | [facility] DEPARTMENT OF | | | | | RADIOLOGY | | | | + +---------+ + + CHEST 1 VIEW (11/08/2005 10:45 AM PST) + + + + + + | Component | Value | Ref Range | Performed | Pathologist | | | | | At | Signature | + + + + + + | CHEST, 1 | Radiologist 1: MARGARITA, | | | | | VIEW | JAKE, MDPortable chest. | | | | | | Right PICC is in mid | | | | | | right atrium, | | | | | | approximately 3 cm below | | | | | | cavalatrial junction. | | | | | | Patchy left lower lobe | | | | | | atelectasis is | | | | | | noted.Lungs are | | | | | | otherwise clear. No | | | | | | pneumothorax. | | | | | | CONCLUSION: 1. Right | | | | | | PICC 3 cm below caval | | | | | | atrial junction. | | | | + + + + + + + + | Specimen | + + | | + + + +---------+ + + | Performing | Address | City/State/Zipcode | Phone Number | | Organization | | | | + +---------+ + + | [facility] DEPARTMENT OF | | | | | RADIOLOGY | | | | + +---------+ + + CHEST 1 VIEW (11/08/2005 7:37 AM PST) + + + + + + | Component | Value | Ref Range | Performed | Pathologist | | | | | At | Signature | + + + + + + | CHEST, 1 | Radiologist 1: MARGARITA, | | | | | VIEW | JAKE, MDPortable chest | | | | | | for feeding tube | | | | | | placement. No feeding | | | | | | tube is seen. Bowel | | | | | | gas pattern is within | | | | | | normallimits. | | | | | | Laparotomy china are | | | | | | present. There is | | | | | | patchy leftlower lobe | | | | | | atelectasis and small | | | | | | effusion. CONCLUSION: 1. | | | | | | No NG tube identified | | | | | | overlying the | | | | | | mediastinum or left | | | | | | upperquadrant. | | | | + + + + + + + + | Specimen | + + | | + + + +---------+ + + | Performing | Address | City/State/Zipcode | Phone Number | | Organization | | | | + +---------+ + + | [facility] DEPARTMENT OF | | | | | RADIOLOGY | | | | + +---------+ + + SLIDE REVIEW (11/08/2005 6:15 AM PST) + + | Specimen | + + | | + + + + + | Narrative | Performed At | + + + | * Corrected 11/08/05 08:06: HANNA COMMENTS, prev report: Slide | RONNY | | review pending. | DEPARTMENT OF | | | PATHOLOGY | + + + + + + + + | Performing | Address | City/State/Zipcode | Phone Number | | Organization | | | | + + + + + | [facility] DEPARTMENT OF | [address] | [place] [address] | | | PATHOLOGY | [address] | | | + + + + + | [facility] DEPARTMENT OF | [address] | [place] [address] | | | PATHOLOGY | [address] | | | + + + + + PHOSPHORUS, PLASMA (11/08/2005 6:15 AM PST) + +-------+ + + + | Component | Value | Ref Range | Performed | Pathologist | | | | | At | Signature | + +-------+ + + + | PHOSPHORUS, | 2.4 | 2.4 - 4.7 mg/dL | [facility] | | | PLASMA | | | DEPARTMENT | | | (LAB) | | | OF | | | | | | PATHOLOGY | | + +-------+ + + + + + | Specimen | + + | | + + + + + + + | Performing | Address | City/State/Zipcode | Phone Number | | Organization | | | | + + + + + | [facility] DEPARTMENT OF | [address] | [place] [address] | | | PATHOLOGY | [address] | | | + + + + + | [facility] DEPARTMENT OF | [address] | [place] [address] | | | PATHOLOGY | [address] | | | + + + + + MAGNESIUM, PLASMA (11/08/2005 6:15 AM PST) + +-------+ + + + | Component | Value | Ref Range | Performed | Pathologist | | | | | At | Signature | + +-------+ + + + | MAGNESIUM,P | 2.1 | 1.8 - 2.5 mg/dL | [facility] | | | LASMA | | | DEPARTMENT | | | | | | OF | | | | | | PATHOLOGY | | + +-------+ + + + + + | Specimen | + + | | + + + + + + + | Performing | Address | City/State/Zipcode | Phone Number | | Organization | | | | + + + + + | [facility] DEPARTMENT OF | [address] | [place] [address] | | | PATHOLOGY | [address] | | | + + + + + | [facility] DEPARTMENT OF | [address] | [place] [address] | | | PATHOLOGY | [address] | | | + + + + + CBC, WITH DIFFERENTIAL (11/08/2005 6:15 AM PST) + + + + + + | Component | Value | Ref Range | Performed | Pathologist | | | | | At | Signature | + + + + + + | WHITE CELL | 11.0 | 4.4 - 11.0 K/cu | [facility] | | | COUNT | | mm | DEPARTMENT | | | | | | OF | | | | | | PATHOLOGY | | + + + + + + | RED CELL | 2.74 (L) | 4.00 - 5.20 | [facility] | | | COUNT | | M/cu mm | DEPARTMENT | | | | | | OF | | | | | | PATHOLOGY | | + + + + + + | HEMOGLOBIN | 9.1 (L) | 12.0 - 16.0 | [facility] | | | | | g/dL | DEPARTMENT | | | | | | OF | | | | | | PATHOLOGY | | + + + + + + | HEMATOCRIT | 26.1 (L) | 36.0 - 46.0 % | [facility] | | | | | | DEPARTMENT | | | | | | OF | | | | | | PATHOLOGY | | + + + + + + | MCV | 95.4 | 80.0 - 96.0 fL | [facility] | | | | | | DEPARTMENT | | | | | | OF | | | | | | PATHOLOGY | | + + + + + + | MCHC | 34.9 | 33.4 - 35.5 | [facility] | | | | | g/dL | DEPARTMENT | | | | | | OF | | | | | | PATHOLOGY | | + + + + + + | RDW | 17.5 (H) | 11.5 - 15.0 % | [facility] | | | | | | DEPARTMENT | | | | | | OF | | | | | | PATHOLOGY | | + + + + + + | PLATELET | 241 | 150 - 400 K/cu | [facility] | | | COUNT | | mm | DEPARTMENT | | | | | | OF | | | | | | PATHOLOGY | | + + + + + + | DIFF | <or= 10% bands seen on | | [facility] | | | COMMENTS | scan. | | DEPARTMENT | | | | | | OF | | | | | | PATHOLOGY | | + + + + + + | CBC | Final automated | | [facility] | | | COMMENTS | differential report. | | DEPARTMENT | | | | Smear reviewed. | | OF | | | | | | PATHOLOGY | | + + + + + + | PLATELET | Macro platelets present. | | [facility] | | | COMMENTS | | | DEPARTMENT | | | | | | OF | | | | | | PATHOLOGY | | + + + + + + + + | Specimen | + + | | + + + + + | Narrative | Performed At | + + + | * Corrected 11/08/05 08:06: HANNA COMMENTS, prev report: Slide | RONNY | | review pending. | DEPARTMENT OF | | | PATHOLOGY | + + + + + + + + | Performing | Address | City/State/Zipcode | Phone Number | | Organization | | | | + + + + + | [facility] DEPARTMENT OF | [address] [facility] | [place] [address] | | | PATHOLOGY | [address] | | | + + + + + | [facility] DEPARTMENT OF | [address] [facility] | [place] [address] | | | PATHOLOGY | [address] | | | + + + + + COMP METABOLIC SET (11/08/2005 6:15 AM PST) + +---------+ + + + | Component | Value | Ref Range | Performed | Pathologist | | | | | At | Signature | + +---------+ + + + | GLUCOSE, | 135 (H) | 65 - 110 mg/dL | [facility] | | | PLASMA | | | DEPARTMENT | | | (LAB) | | | OF | | | | | | PATHOLOGY | | + +---------+ + + + | BUN, PLASMA | 3 (L) | 6 - 20 mg/dL | [facility] | | | (LAB) | | | DEPARTMENT | | | | | | OF | | | | | | PATHOLOGY | | + +---------+ + + + | CREATININE | 0.6 | 0.6 - 1.1 mg/dL | [facility] | | | PLASMA | | | DEPARTMENT | | | (LAB) | | | OF | | | | | | PATHOLOGY | | + +---------+ + + + | TOTAL | 3.8 (L) | 6.1 - 7.9 g/dL | [facility] | | | PROTEIN, | | | DEPARTMENT | | | PLASMA | | | OF | | | (LAB) | | | PATHOLOGY | | + +---------+ + + + | ALBUMIN, | 1.5 (L) | 3.5 - 4.7 g/dL | [facility] | | | PLASMA | | | DEPARTMENT | | | (LAB) | | | OF | | | | | | PATHOLOGY | | + +---------+ + + + | CALCIUM, | 7.5 (L) | 8.5 - 10.5 | [facility] | | | PLASMA | | mg/dL | DEPARTMENT | | | (LAB) | | | OF | | | | | | PATHOLOGY | | + +---------+ + + + | BILIRUBIN | 0.6 | 0.3 - 1.2 mg/dL | [facility] | | | TOTAL | | | DEPARTMENT | | | | | | OF | | | | | | PATHOLOGY | | + +---------+ + + + | ALK PHOS | 56 | 42 - 98 U/L | [facility] | | | | | | DEPARTMENT | | | | | | OF | | | | | | PATHOLOGY | | + +---------+ + + + | AST(SGOT) | 8 (L) | 15 - 41 U/L | [facility] | | | | | | DEPARTMENT | | | | | | OF | | | | | | PATHOLOGY | | + +---------+ + + + | SODIUM, | 135 (L) | 136 - 145 | [facility] | | | PLASMA | | mmol/L | DEPARTMENT | | | (LAB) | | | OF | | | | | | PATHOLOGY | | + +---------+ + + + | POTASSIUM, | 3.4 (L) | 3.5 - 5.1 | [facility] | | | PLASMA | | mmol/L | DEPARTMENT | | | (LAB) | | | OF | | | | | | PATHOLOGY | | + +---------+ + + + | CHLORIDE, | 110 (H) | 98 - 107 mmol/L | [facility] | | | PLASMA | | | DEPARTMENT | | | (LAB) | | | OF | | | | | | PATHOLOGY | | + +---------+ + + + | TOTAL CO2, | 25 | 23 - 29 mmol/L | [facility] | | | PLASMA | | | DEPARTMENT | | | (LAB) | | | OF | | | | | | PATHOLOGY | | + +---------+ + + + | ALT (SGPT) | 10 (L) | 13 - 48 U/L | [facility] [...] | + + + + + | [facility] DEPARTMENT OF | [address] [facility] | [place] [address] | | | PATHOLOGY | [address] | | | + + + + + | [facility] DEPARTMENT OF | [address] [facility] | [place] [address] | | | PATHOLOGY | [address] | | | + + + + + DIFFERENTIAL (11/08/2005 6:15 AM PST) + +---------+ + + + | Component | Value | Ref Range | Performed | Pathologist | | | | | At | Signature | + +---------+ + + + | NEUTROPHIL | 81 (H) | 50 - 70 % | [facility] | | | % | | | DEPARTMENT | | | | | | OF | | | | | | PATHOLOGY | | + +---------+ + + + | LYMPHOCYTE | 7 (L) | 18 - 42 % | [facility] | | | % | | | DEPARTMENT | | | | | | OF | | | | | | PATHOLOGY | | + +---------+ + + + | MONOCYTE % | 9 (H) | 2 - 8 % | [facility] | | | | | | DEPARTMENT | | | | | | OF | | | | | | PATHOLOGY | | + +---------+ + + + | EOS % | 3 | 1 - 3 % | [facility] | | | | | | DEPARTMENT | | | | | | OF | | | | | | PATHOLOGY | | + +---------+ + + + | BASO % | 0 | <3 % | [facility] | | | | | | DEPARTMENT | | | | | | OF | | | | | | PATHOLOGY | | + +---------+ + + + | NEUTROPHIL | 8.9 (H) | 1.8 - 7.7 K/cu | [facility] | | | # | | mm | DEPARTMENT | | | | | | OF | | | | | | PATHOLOGY | | + +---------+ + + + | LYMPHOCYTE | 0.8 (L) | 1.0 - 4.8 K/cu | [facility] | | | # | | mm | DEPARTMENT | | | | | | OF | | | | | | PATHOLOGY | | + +---------+ + + + | MONOCYTE # | 1.0 (H) | 0.1 - 0.6 K/cu | [facility] | | | | | mm | DEPARTMENT | | | | | | OF | | | | | | PATHOLOGY | | + +---------+ + + + | EOS # | 0.3 | <0.6 K/cu mm | [facility] | | | | | | DEPARTMENT | | | | | | OF | | | | | | PATHOLOGY | | + +---------+ + + + | BASO # | 0.0 | <0.3 | [facility] | | | | | | DEPARTMENT | | | | | | OF | | | | | | PATHOLOGY | | + +---------+ + + + + + | Specimen | + + | | + + + + + | Narrative | Performed At | + + + | * Corrected 11/08/05 08:06: HANNA COMMENTS, prev report: Slide | [facility]ONNY | | review pending. | DEPARTMENT OF | | | PATHOLOGY | + + + + + + + + | Performing | Address | City/State/Zipcode | Phone Number | | Organization | | | | + + + + + | [facility] | [address] | [place] [address] | | | PATHOLOGY | [address] | | | + + + + + | [facility] | [address] | [place] [address] | | | PATHOLOGY | [address] | | | + + + + + CT PELVIS W CONTRAST (11/07/2005 2:12 PM PST) + + + + + + | Component | Value | Ref Range | Performed | Pathologist | | | | | At | Signature | + + + + + + | CT PELVIS W | Radiologist 1: DOAZEEM, | | | | | CONTRAST | JAKE, MDCT abdomen and | | | | | | pelvis with oral and 120 | | | | | | cc intravenous | | | | | | visipaqueand thin | | | | | | section axial | | | | | | reconstructions. | | | | | | Comparison: Outside CT, | | | | | | most recently 05-27-2005. 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 | | | | | | 11/04/05status post GENI, | | | | | | revision of sawant pouch | | | | | | including takedown | | | | | | ofefferent limb and | | | | | | construction of | | | | | | continent cutaneous | | | | | | channel viamonti | | | | | | subserosal tunneled | | | | | | fran-appendix. Enterotomy | | | | | | repair x 2. Findings: | | | | | | ABDOMEN: Small bilateral | | | | | | effusions with | | | | | | bibasilar | | | | | | dependentatelectasis. | | | | | | Liver, gallbladder,, | | | | | | and biliary system, | | | | | | pancreas,and spleen, and | | | | | | adrenal glands are | | | | | | normal. Left kidney is | | | | | | normal.Multifocal renal | | | | | | cortical parenchymal | | | | | | scarring with calictasis | | | | | | andoverlying | | | | | | parenchymal | | | | | | thinning/scarring shows | | | | | | interval developmentof | | | | | | moderate | | | | | | hydroureteronephrosis | | | | | | likely due to | | | | | | obstruction of thedistal | | | | | | ureter near the | | | | | | anastomosis with the | | | | | | diversion. 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 There has | | | | | | been prior in the right | | | | | | ileocecectomy. PELVIS: | | | | | | Pelvic BAY drain is | | | | | | surrounded by | | | | | | extravasated | | | | | | oralcontrast material | | | | | | which layers within the | | | | | | right pelvis | | | | | | andextends along the | | | | | | right paracolic gutter | | | | | | and just deep to | | | | | | theanterior abdominal | | | | | | wall, exiting to the | | | | | | skin surface in the | | | | | | rightlower quadrant at | | | | | | site of previous | | | | | | efferent limb takedown. | | | | | | Siteof extravasation | | | | | | is not clearly | | | | | | identifiable, although | | | | | | the neoterminal ileum | | | | | | appears to be the most | | | | | | abnormal appearing | | | | | | andindistinct loop of | | | | | | bowel, images [phone] | | | | | | and could represent | | | | | | apotential site of | | | | | | contrast extravasation. | | | | | | Contrast does reach | | | | | | thecolon. A small | | | | | | amount of extraluminal | | | | | | gas is present | | | | | | intermixedwith | | | | | | extravasated oral | | | | | | contrast material. 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 | | | | | | CONCLUSION: 1. Oral | | | | | | contrast extravasation, | | | | | | possibly from region | | | | | | ofneoterminal ileum as | | | | | | discussed above. | | | | + + + + + + + + | Specimen | + + | | + + + +---------+ + + | Performing | Address | City/State/Zipcode | Phone Number | | Organization | | | | + +---------+ + + | [facility] DEPARTMENT OF | | | | | RADIOLOGY | | | | + +---------+ + + CT ABDOMEN W CONTRAST (11/07/2005 2:12 PM PST) + + + + + + | Component | Value | Ref Range | Performed | Pathologist | | | | | At | Signature | + + + + + + | CT ABDOMEN | Radiologist 1: MARGARITA, | | | | | W CONTRAST | JAKE, MDCT abdomen and | | | | | | pelvis with oral and 120 | | | | | | cc intravenous | | | | | | visipaqueand thin | | | | | | section axial | | | | | | reconstructions. | | | | | | Comparison: Outside CT, | | | | | | most recently 05-27-2005. 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 | | | | | | 11/04/05status post GENI, | | | | | | revision of sawant pouch | | | | | | including takedown | | | | | | ofefferent limb and | | | | | | construction of | | | | | | continent cutaneous | | | | | | channel viamonti | | | | | | subserosal tunneled | | | | | | fran-appendix. Enterotomy | | | | | | repair x 2. Findings: | | | | | | ABDOMEN: Small bilateral | | | | | | effusions with | | | | | | bibasilar | | | | | | dependentatelectasis. | | | | | | Liver, gallbladder,, | | | | | | and biliary system, | | | | | | pancreas,and spleen, and | | | | | | adrenal glands are | | | | | | normal. Left kidney is | | | | | | normal.Multifocal renal | | | | | | cortical parenchymal | | | | | | scarring with calictasis | | | | | | andoverlying | | | | | | parenchymal | | | | | | thinning/scarring shows | | | | | | interval developmentof | | | | | | moderate | | | | | | hydroureteronephrosis | | | | | | likely due to | | | | | | obstruction of thedistal | | | | | | ureter near the | | | | | | anastomosis with the | | | | | | diversion. 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 There has | | | | | | been prior in the right | | | | | | ileocecectomy. PELVIS: | | | | | | Pelvic BAY drain is | | | | | | surrounded by | | | | | | extravasated | | | | | | oralcontrast material | | | | | | which layers within the | | | | | | right pelvis | | | | | | andextends along the | | | | | | right paracolic gutter | | | | | | and just deep to | | | | | | theanterior abdominal | | | | | | wall, exiting to the | | | | | | skin surface in the | | | | | | rightlower quadrant at | | | | | | site of previous | | | | | | efferent limb takedown. | | | | | | Siteof extravasation | | | | | | is not clearly | | | | | | identifiable, although | | | | | | the neoterminal ileum | | | | | | appears to be the most | | | | | | abnormal appearing | | | | | | andindistinct loop of | | | | | | bowel, images [phone] | | | | | | and could represent | | | | | | apotential site of | | | | | | contrast extravasation. | | | | | | Contrast does reach | | | | | | thecolon. A small | | | | | | amount of extraluminal | | | | | | gas is present | | | | | | intermixedwith | | | | | | extravasated oral | | | | | | contrast material. 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 | | | | | | CONCLUSION: 1. Oral | | | | | | contrast extravasation, | | | | | | possibly from region | | | | | | ofneoterminal ileum as | | | | | | discussed above. | | | | + + + + + + + + | Specimen | + + | | + + + +---------+ + + | Performing | Address | City/State/Zipcode | Phone Number | | Organization | | | | + +---------+ + + | [facility] DEPARTMENT OF | | | | | RADIOLOGY | | | | + +---------+ + + PHOSPHORUS, PLASMA (11/07/2005 6:20 AM PST) + +---------+ + + + | Component | Value | Ref Range | Performed | Pathologist | | | | | At | Signature | + +---------+ + + + | PHOSPHORUS, | 1.5 (L) | 2.4 - 4.7 mg/dL | [facility] | | | PLASMA | | | DEPARTMENT | | | (LAB) | | | OF | | | [...] DEPARTMENT OF | [address] | [place] [address] | | | PATHOLOGY | [address] | | | + + + + + | [facility] DEPARTMENT OF | [address] | [place] [address] | | | PATHOLOGY | [address] | | | + + + + + BASIC METABOLIC SET (11/07/2005 6:20 AM PST) + +---------+ + + + | Component | Value | Ref Range | Performed | Pathologist | | | | | At | Signature | + +---------+ + + + | GLUCOSE, | 116 (H) | 65 - 110 mg/dL | [facility] | | | PLASMA | | | DEPARTMENT | | | (LAB) | | | OF | | | | | | PATHOLOGY | | + +---------+ + + + | BUN, PLASMA | 5 (L) | 6 - 20 mg/dL | [facility] | | | (LAB) | | | DEPARTMENT | | | | | | OF | | | | | | PATHOLOGY | | + +---------+ + + + | CREATININE | 0.7 | 0.6 - 1.1 mg/dL | [facility] | | | PLASMA | | | DEPARTMENT | | | (LAB) | | | OF | | | | | | PATHOLOGY | | + +---------+ + + + | SODIUM, | 133 (L) | 136 - 145 | [facility] | | | PLASMA | | mmol/L | DEPARTMENT | | | (LAB) | | | OF | | | | | | PATHOLOGY | | + +---------+ + + + | POTASSIUM, | 2.9 (L) | 3.5 - 5.1 | [facility] | | | PLASMA | | mmol/L | DEPARTMENT | | | (LAB) | | | OF | | | | | | PATHOLOGY | | + +---------+ + + + | CHLORIDE, | 105 | 98 - 107 mmol/L | [facility] | | | PLASMA | | | DEPARTMENT | | | (LAB) | | | OF | | | | | | PATHOLOGY | | + +---------+ + + + | TOTAL CO2, | 23 | 23 - 29 mmol/L | [facility] | | | PLASMA | | | DEPARTMENT | | | (LAB) | | | OF | | | | | | PATHOLOGY | | + +---------+ + + + | CALCIUM, | 7.3 (L) | 8.5 - 10.5 | [facility] | | | PLASMA | | mg/dL | DEPARTMENT | | | (LAB) | | | OF | | | | | | PATHOLOGY | | + +---------+ + + + + + | Specimen | + + | | + + + + + + + | Performing | Address | City/State/Zipcode | Phone Number | | Organization | | | | + + + + + | [facility] DEPARTMENT OF | [address] | [place] [address] | | | PATHOLOGY | [address] | | | + + + + + | [facility] DEPARTMENT OF | [address] | [place] [address] | | | PATHOLOGY | [address] | | | + + + + + MAGNESIUM, PLASMA (11/07/2005 6:20 AM PST) + +---------+ + + + | Component | Value | Ref Range | Performed | Pathologist | | | | | At | Signature | + +---------+ + + + | MAGNESIUM,P | 1.6 (L) | 1.8 - 2.5 mg/dL | [facility] | | | LASMA | | | DEPARTMENT | | | [...] + + + + + | [facility] | [address] [facility] | [place] [address] | | | PATHOLOGY | [address] | | | + + + + + | [facility] DEPARTMENT | [address] [address] | [place] [address] | | | PATHOLOGY | [address] | | | + + + + + CBC ONLY WITH PLATELET (11/07/2005 6:20 AM PST) + + + + + + | Component | Value | Ref Range | Performed | Pathologist | | | | | At | Signature | + + + + + + | WHITE CELL | 12.4 (H) | 4.4 - 11.0 K/cu | [facility] | | | COUNT | | mm | DEPARTMENT | | | | | | OF | | | | | | PATHOLOGY | | + + + + + + | RED CELL | 2.80 (L) | 4.00 - 5.20 | [facility] | | | COUNT | | M/cu mm | DEPARTMENT | | | | | | OF | | | | | | PATHOLOGY | | + + + + + + | HEMOGLOBIN | 9.3 (L) | 12.0 - 16.0 | [facility] | | | | | g/dL | DEPARTMENT | | | | | | OF | | | | | | PATHOLOGY | | + + + + + + | HEMATOCRIT | 26.6 (L) | 36.0 - 46.0 % | [facility] | | | | | | DEPARTMENT | | | | | | OF | | | | | | PATHOLOGY | | + + + + + + | MCV | 94.8 | 80.0 - 96.0 fL | [facility] | | | | | | DEPARTMENT | | | | | | OF | | | | | | PATHOLOGY | | + + + + + + | MCHC | 34.9 | 33.4 - 35.5 | [facility] | | | | | g/dL | DEPARTMENT | | | | | | OF | | | | | | PATHOLOGY | | + + + + + + | RDW | 17.4 (H) | 11.5 - 15.0 % | [facility] | | | | | | DEPARTMENT | | | | | | OF | | | | | | PATHOLOGY | | + + + + + + | PLATELET | 182 | 150 - 400 K/cu | [facility] | | | COUNT | | mm | DEPARTMENT | | [...] | + + + + + | [facility] DEPARTMENT OF | [address] [address] | [place] [address] | | | PATHOLOGY | [address] | | | + + + + + | [facility] DEPARTMENT OF | [address] | [place] [address] | | | PATHOLOGY | [address] | | | + + + + + MAGNESIUM, PLASMA (11/06/2005 6:40 AM PST) + +-------+ + + + | Component | Value | Ref Range | Performed | Pathologist | | | | | At | Signature | + +-------+ + + + | MAGNESIUM,P | 1.9 | 1.8 - 2.5 mg/dL | [facility] | | | LASMA | | | DEPARTMENT | | | | | | OF | | | | | | PATHOLOGY | | + +-------+ + + + + + | Specimen | + + | | + + + + + + + | Performing | Address | City/State/Zipcode | Phone Number | | Organization | | | | + + + + + | [facility] | [address] [facility] | [place] [address] | | | PATHOLOGY | [address] | | | + + + + + | [facility] | [address] [address] | [place] [address] | | | PATHOLOGY | [address] | | | + + + + + PHOSPHORUS, PLASMA (11/06/2005 6:40 AM PST) + +---------+ + + + | Component | Value | Ref Range | Performed | Pathologist | | | | | At | Signature | + +---------+ + + + | PHOSPHORUS, | 2.3 (L) | 2.4 - 4.7 mg/dL | [facility] | | | PLASMA | | | DEPARTMENT | | | (LAB) | | | OF | | | | | | PATHOLOGY | | + +---------+ + + + + + | Specimen | + + | | + + + + + + + | Performing | Address | City/State/Zipcode | Phone Number | | Organization | | | | + + + + + | [facility] DEPARTMENT OF | [address] [address] | [place] [address] | | | PATHOLOGY | [address] | | | + + + + + | [facility] DEPARTMENT OF | [address] | [place] [address] | | | PATHOLOGY | [address] | | | + + + + + CBC ONLY WITH PLATELET (11/06/2005 6:40 AM PST) + + + + + + | Component | Value | Ref Range | Performed | Pathologist | | | | | At | Signature | + + + + + + | WHITE CELL | 12.9 (H) | 4.4 - 11.0 K/cu | [facility] | | | COUNT | | mm | DEPARTMENT | | | | | | OF | | | | | | PATHOLOGY | | + + + + + + | RED CELL | 2.50 (L) | 4.00 - 5.20 | [facility] | | | COUNT | | M/cu mm | DEPARTMENT | | | | | | OF | | | | | | PATHOLOGY | | + + + + + + | HEMOGLOBIN | 8.5 (L) | 12.0 - 16.0 | [facility] | | | | | g/dL | DEPARTMENT | | | | | | OF | | | | | | PATHOLOGY | | + + + + + + | HEMATOCRIT | 24.3 (L) | 36.0 - 46.0 % | [facility] | | | | | | DEPARTMENT | | | | | | OF | | | | | | PATHOLOGY | | + + + + + + | MCV | 97.3 (H) | 80.0 - 96.0 fL | [facility] | | | | | | DEPARTMENT | | | | | | OF | | | | | | PATHOLOGY | | + + + + + + | MCHC | 34.8 | 33.4 - 35.5 | [facility] | | | | | g/dL | DEPARTMENT | | | | | | OF | | | | | | PATHOLOGY | | + + + + + + | RDW | 16.8 (H) | 11.5 - 15.0 % | [facility] | | | | | | DEPARTMENT | | | | | | OF | | | | | | PATHOLOGY | | + + + + + + | PLATELET | 184 | 150 - 400 K/cu | [facility] | | | COUNT | | mm | DEPARTMENT | | [...] DEPARTMENT OF | [address] | [place] [address] | | | PATHOLOGY | [address] | | | + + + + + | [facility] DEPARTMENT OF | [address] | [place] [address] | | | PATHOLOGY | [address] | | | + + + + + BASIC METABOLIC SET (11/06/2005 6:40 AM PST) + +---------+ + + + | Component | Value | Ref Range | Performed | Pathologist | | | | | At | Signature | + +---------+ + + + | GLUCOSE, | 121 (H) | 65 - 110 mg/dL | [facility] | | | PLASMA | | | DEPARTMENT | | | (LAB) | | | OF | | | | | | PATHOLOGY | | + +---------+ + + + | BUN, PLASMA | 9 | 6 - 20 mg/dL | [facility] | | | (LAB) | | | DEPARTMENT | | | | | | OF | | | | | | PATHOLOGY | | + +---------+ + + + | CREATININE | 0.9 | 0.6 - 1.1 mg/dL | [facility] | | | PLASMA | | | DEPARTMENT | | | (LAB) | | | OF | | | | | | PATHOLOGY | | + +---------+ + + + | SODIUM, | 139 | 136 - 145 | [facility] | | | PLASMA | | mmol/L | DEPARTMENT | | | (LAB) | | | OF | | | | | | PATHOLOGY | | + +---------+ + + + | POTASSIUM, | 3.2 (L) | 3.5 - 5.1 | [facility] | | | PLASMA | | mmol/L | DEPARTMENT | | | (LAB) | | | OF | | | | | | PATHOLOGY | | + +---------+ + + + | CHLORIDE, | 108 (H) | 98 - 107 mmol/L | [facility] | | | PLASMA | | | DEPARTMENT | | | (LAB) | | | OF | | | | | | PATHOLOGY | | + +---------+ + + + | TOTAL CO2, | 25 | 23 - 29 mmol/L | [facility] | | | PLASMA | | | DEPARTMENT | | | (LAB) | | | OF | | | | | | PATHOLOGY | | + +---------+ + + + | CALCIUM, | 7.2 (L) | 8.5 - 10.5 | [facility] | | | PLASMA | | mg/dL | DEPARTMENT | | | (LAB) | | | OF | | | | | | PATHOLOGY | | + +---------+ + + + + + | Specimen | + + | | + + + + + + + | Performing | Address | City/State/Zipcode | Phone Number | | Organization | | | | + + + + + | [facility] DEPARTMENT OF | [address] | [place] [address] | | | PATHOLOGY | [address] | | | + + + + + | [facility] DEPARTMENT OF | [address] | [place] [address] | | | PATHOLOGY | [address] | | | + + + + + ANTIBODY SCREEN & CROSSMATCH (11/05/2005 11:30 PM PST) + +-------+ + + + | Component | Value | Ref Range | Performed | Pathologist | | | | | At | Signature | + +-------+ + + + | ABO GROUP | A | | [facility] | | | | | | DEPARTMENT | | | | | | OF | | | | | | PATHOLOGY | | + +-------+ + + + | RH TYPE | POS | | [facility] | | | | | | DEPARTMENT | | | | | | OF | | | | | | PATHOLOGY | | + +-------+ + + + | ANTIBODY | NEG | | [facility] | | | SCREEN | | | DEPARTMENT | | | | | | OF | | | | | | PATHOLOGY | | + +-------+ + + + + + | Specimen | + + | | + + + + + | Narrative | Performed At | + + + | Instrument Testing Instrument Testing | [facility] | | | DEPARTMENT OF | | | PATHOLOGY | + + + + + + + + | Performing | Address | City/State/Zipcode | Phone Number | | Organization | | | | + + + + + | [facility] DEPARTMENT | [address] [facility] | [place] [address] | | | PATHOLOGY | [address] | | | + + + + + | [facility] | [address] [facility] [address] | [place] [address] | | | PATHOLOGY | [address] | | | + + + + + CBC ONLY WITH PLATELET (11/05/2005 4:08 PM PST) + + + + + + | Component | Value | Ref Range | Performed | Pathologist | | | | | At | Signature | + + + + + + | WHITE CELL | 9.6 | 4.4 - 11.0 K/cu | [facility] | | | COUNT | | mm | DEPARTMENT | | | | | | OF | | | | | | PATHOLOGY | | + + + + + + | RED CELL | 2.17 (L) | 4.00 - 5.20 | [facility] | | | COUNT | | M/cu mm | DEPARTMENT | | | | | | OF | | | | | | PATHOLOGY | | + + + + + + | HEMOGLOBIN | 7.7 (L) | 12.0 - 16.0 | [facility] | | | | | g/dL | DEPARTMENT | | | | | | OF | | | | | | PATHOLOGY | | + + + + + + | HEMATOCRIT | 21.8 (L) | 36.0 - 46.0 % | [facility] | | | | | | DEPARTMENT | | | | | | OF | | | | | | PATHOLOGY | | + + + + + + | MCV | 100.4 (H) | 80.0 - 96.0 fL | [facility] | | | | | | DEPARTMENT | | | | | | OF | | | | | | PATHOLOGY | | + + + + + + | MCHC | 35.4 | 33.4 - 35.5 | [facility] | | | | | g/dL | DEPARTMENT | | | | | | OF | | | | | | PATHOLOGY | | + + + + + + | RDW | 14.1 | 11.5 - 15.0 % | [facility] | | | | | | DEPARTMENT | | | | | | OF | | | | | | PATHOLOGY | | + + + + + + | PLATELET | 202 | 150 - 400 K/cu | [facility] | | | COUNT | | mm | DEPARTMENT | | [...] | + + + + + | [facility] DEPARTMENT OF | [address] | [place] [address] | | | PATHOLOGY | [address] | | | + + + + + | [facility] | [facility] | [place] [address] | | | PATHOLOGY | [address] | | | + + + + + TROPONIN I (11/05/2005 4:08 PM PST) + +-------+ + + + | Component | Value | Ref Range | Performed | Pathologist | | | | | At | Signature | + +-------+ + + + | TROPONIN I | 0.01 | <0.50 ng/mL | [facility] | | | | | | DEPARTMENT | | | | | | OF | | | | | | PATHOLOGY | | + +-------+ + + + + + | Specimen | + + | | + + + + + + + | Performing | Address | City/State/Zipcode | Phone Number | | Organization | | | | + + + + + | [facility] DEPARTMENT OF | [address] | [place] [address] | | | PATHOLOGY | [address] | | | + + + + + | [facility] DEPARTMENT OF | [address] | [place] [address] | | | PATHOLOGY | [address] | | | + + + + + BASIC METABOLIC SET (11/05/2005 2:00 PM PST) + +---------+ + + + | Component | Value | Ref Range | Performed | Pathologist | | | | | At | Signature | + +---------+ + + + | GLUCOSE, | 149 (H) | 65 - 110 mg/dL | [facility] | | | PLASMA | | | DEPARTMENT | | | (LAB) | | | OF | | | | | | PATHOLOGY | | + +---------+ + + + | BUN, PLASMA | 8 | 6 - 20 mg/dL | [facility] | | | (LAB) | | | DEPARTMENT | | | | | | OF | | | | | | PATHOLOGY | | + +---------+ + + + | CREATININE | 0.9 | 0.6 - 1.1 mg/dL | [facility] | | | PLASMA | | | DEPARTMENT | | | (LAB) | | | OF | | | | | | PATHOLOGY | | + +---------+ + + + | SODIUM, | 138 | 136 - 145 | [facility] | | | PLASMA | | mmol/L | DEPARTMENT | | | (LAB) | | | OF | | | | | | PATHOLOGY | | + +---------+ + + + | POTASSIUM, | 3.6 | 3.5 - 5.1 | [facility] | | | PLASMA | | mmol/L | DEPARTMENT | | | (LAB) | | | OF | | | | | | PATHOLOGY | | + +---------+ + + + | CHLORIDE, | 104 | 98 - 107 mmol/L | [facility] | | | PLASMA | | | DEPARTMENT | | | (LAB) | | | OF | | | | | | PATHOLOGY | | + +---------+ + + + | TOTAL CO2, | 22 (L) | 23 - 29 mmol/L | [facility] | | | PLASMA | | | DEPARTMENT | | | (LAB) | | | OF | | | | | | PATHOLOGY | | + +---------+ + + + | CALCIUM, | 6.9 (*) | 8.5 - 10.5 | [facility] | | | PLASMA | | mg/dL | DEPARTMENT | | | (LAB) | | | OF | | | | | | PATHOLOGY | | + +---------+ + + + + + | Specimen | + + | | + + + + + | Narrative | Performed At | + + + | CA Phoned Readback. | [facility] | | | DEPARTMENT OF | | | PATHOLOGY | + + + + + + + + | Performing | Address | City/State/Zipcode | Phone Number | | Organization | | | | + + + + + | [facility] DEPARTMENT | [address] [address] | [place] [address] | | | PATHOLOGY | [address] | | | + + + + + | [facility] | [address] [facility] | [place] [address] | | | PATHOLOGY | [address] | | | + + + + + TROPONIN I (11/05/2005 2:00 PM PST) + + + + + + | Component | Value | Ref Range | Performed | Pathologist | | | | | At | Signature | + + + + + + | TROPONIN I | Spc unsat | <0.50 ng/mL | [facility] | | | | | [...] | + + + + + | [facility] DEPARTMENT OF | [address] | [place] [address] | | | PATHOLOGY | [address] | | | + + + + + | [facility] DEPARTMENT OF | [address] | [place] [address] | | | PATHOLOGY | [address] | | | + + + + + MAGNESIUM, PLASMA (11/05/2005 6:35 AM PST) + +-------+ + + + | Component | Value | Ref Range | Performed | Pathologist | | | | | At | Signature | + +-------+ + + + | MAGNESIUM,P | 2.1 | 1.8 - 2.5 mg/dL | [facility] | | | [facility] | | | DEPARTMENT | | | | | | OF | | | | | | PATHOLOGY | | + +-------+ + + + + + | Specimen | + + | | + + + + + | Narrative | Performed At | + + + | Ordered by UNKNOWN DOCTOR | [facility] | | | DEPARTMENT OF | | | PATHOLOGY | + + + + + + + + | Performing | Address | City/State/Zipcode | Phone Number | | Organization | | | | + + + + + | [facility] DEPARTMENT OF | [address] | [place] [address] | | | PATHOLOGY | [address] | | | + + + + + | [facility] DEPARTMENT OF | [address] | [place] [address] | | | PATHOLOGY | [address] | | | + + + + + BASIC METABOLIC SET (11/05/2005 6:35 AM PST) + +---------+ + + + | Component | Value | Ref Range | Performed | Pathologist | | | | | At | Signature | + +---------+ + + + | GLUCOSE, | 156 (H) | 65 - 110 mg/dL | [facility] | | | PLASMA | | | DEPARTMENT | | | (LAB) | | | OF | | | | | | PATHOLOGY | | + +---------+ + + + | BUN, PLASMA | 7 | 6 - 20 mg/dL | [facility] | | | (LAB) | | | DEPARTMENT | | | | | | OF | | | | | | PATHOLOGY | | + +---------+ + + + | CREATININE | 0.9 | 0.6 - 1.1 mg/dL | [facility] | | | PLASMA | | | DEPARTMENT | | | (LAB) | | | OF | | | | | | PATHOLOGY | | + +---------+ + + + | SODIUM, | 138 | 136 - 145 | [facility] | | | PLASMA | | mmol/L | DEPARTMENT | | | (LAB) | | | OF | | | | | | PATHOLOGY | | + +---------+ + + + | POTASSIUM, | 3.2 (L) | 3.5 - 5.1 | [facility] | | | PLASMA | | mmol/L | DEPARTMENT | | | (LAB) | | | OF | | | | | | PATHOLOGY | | + +---------+ + + + | CHLORIDE, | 112 (H) | 98 - 107 mmol/L | [facility] | | | PLASMA | | | DEPARTMENT | | | (LAB) | | | OF | | | | | | PATHOLOGY | | + +---------+ + + + | TOTAL CO2, | 24 | 23 - 29 mmol/L | [facility] | | | PLASMA | | | DEPARTMENT | | | (LAB) | | | OF | | | | | | PATHOLOGY | | + +---------+ + + + | CALCIUM, | 7.3 (L) | 8.5 - 10.5 | [facility] | | | PLASMA | | mg/dL | DEPARTMENT | | | (LAB) | | | OF | | | | | | PATHOLOGY | | + +---------+ + + + + + | Specimen | + + | | + + + + + | Narrative | Performed At | + + + | Ordered by UNKNOWN DOCTOR | [facility] | | | DEPARTMENT OF | | | PATHOLOGY | + + + + + + + + | Performing | Address | City/State/Zipcode | Phone Number | | Organization | | | | + + + + + | [facility] | [address] [facility] | [place] [address] | | | PATHOLOGY | [address] | | | + + + + + | [facility] | [address] | [place] [address] | | | PATHOLOGY | [address] | | | + + + + + PHOSPHORUS, PLASMA (11/05/2005 6:35 AM PST) + +---------+ + + + | Component | Value | Ref Range | Performed | Pathologist | | | | | At | Signature | + +---------+ + + + | PHOSPHORUS, | 1.3 (L) | 2.4 - 4.7 mg/dL | [facility] | | | PLASMA | | | DEPARTMENT | | | (LAB) | | | OF | | | | | | PATHOLOGY | | + +---------+ + + + + + | Specimen | + + | | + + + + + | Narrative | Performed At | + + + | Ordered by UNKNOWN DOCTOR | [facility] | | | DEPARTMENT OF | | | PATHOLOGY | + + + + + + + + | Performing | Address | City/State/Zipcode | Phone Number | | Organization | | | | + + + + + | [facility] DEPARTMENT OF | [address] [facility] | [place] [address] | | | PATHOLOGY | [address] | | | + + + + + | [facility] DEPARTMENT OF | [address] [facility] | [place] [address] | | | PATHOLOGY | [address] | | | + + + + + CBC ONLY WITH PLATELET (11/05/2005 6:35 AM PST) + + + + + + | Component | Value | Ref Range | Performed | Pathologist | | | | | At | Signature | + + + + + + | WHITE CELL | 6.3 | 4.4 - 11.0 K/cu | [facility] | | | COUNT | | mm | DEPARTMENT | | | | | | OF | | | | | | PATHOLOGY | | + + + + + + | RED CELL | 2.42 (L) | 4.00 - 5.20 | [facility] | | | COUNT | | M/cu mm | DEPARTMENT | | | | | | OF | | | | | | PATHOLOGY | | + + + + + + | HEMOGLOBIN | 8.5 (L) | 12.0 - 16.0 | [facility] | | | | | g/dL | DEPARTMENT | | | | | | OF | | | | | | PATHOLOGY | | + + + + + + | HEMATOCRIT | 24.5 (L) | 36.0 - 46.0 % | [facility] | | | | | | DEPARTMENT | | | | | | OF | | | | | | PATHOLOGY | | + + + + + + | MCV | 101.0 (H) | 80.0 - 96.0 fL | [facility] | | | | | | DEPARTMENT | | | | | | OF | | | | | | PATHOLOGY | | + + + + + + | MCHC | 34.9 | 33.4 - 35.5 | [facility] | | | | | g/dL | DEPARTMENT | | | | | | OF | | | | | | PATHOLOGY | | + + + + + + | RDW | 14.2 | 11.5 - 15.0 % | [facility] | | | | | | DEPARTMENT | | | | | | OF | | | | | | PATHOLOGY | | + + + + + + | PLATELET | 227 | 150 - 400 K/cu | [facility] | | | COUNT | | mm | DEPARTMENT | | | | | | OF | | | | | | PATHOLOGY | | + + + + + + + + | Specimen | + + | | + + + + + | Narrative | Performed At | + + + | Ordered by UNKNOWN DOCTOR | [facility] | | | DEPARTMENT OF | | | PATHOLOGY | + + + + + + + + | Performing | Address | City/State/Zipcode | Phone Number | | Organization | | | | + + + + + | [facility] DEPARTMENT OF | [id number] | [place] [address] | | | PATHOLOGY | [address] | | | + + + + + | [facility] DEPARTMENT OF | [address] | [place] [address] | | | PATHOLOGY | [address] | | | + + + + + PHOSPHORUS, PLASMA (11/04/2005 6:00 PM PST) + +-------+ + + + | Component | Value | Ref Range | Performed | Pathologist | | | | | At | Signature | + +-------+ + + + | PHOSPHORUS, | 3.4 | 2.4 - 4.7 mg/dL | [facility] | | | PLASMA | | | DEPARTMENT | | | (LAB) | | | OF | | | | | | PATHOLOGY | | + +-------+ + + + + + | Specimen | + + | | + + + + + + + | Performing | Address | City/State/Zipcode | Phone Number | | Organization | | | | + + + + + | [facility] DEPARTMENT OF | [address] [facility] | [place] [address] | | | PATHOLOGY | [address] | | | + + + + + | [facility] DEPARTMENT OF | [address] [facility] | [place] [address] | | | PATHOLOGY | [address] | | | + + + + + MAGNESIUM, PLASMA (11/04/2005 6:00 PM PST) + +---------+ + + + | Component | Value | Ref Range | Performed | Pathologist | | | | | At | Signature | + +---------+ + + + | MAGNESIUM,P | 1.5 (L) | 1.8 - 2.5 mg/dL | [facility] | | | LASMA | | | DEPARTMENT | | | [...] + + + + + | [facility] | [address] H[facility]PITAL | [place] [address] | | | PATHOLOGY | [address] | | | + + + + + | [facility] | [address] [facility] | [place] [address] | | | PATHOLOGY | [address] | | | + + + + + CBC ONLY WITH PLATELET (11/04/2005 6:00 PM PST) + + + + + + | Component | Value | Ref Range | Performed | Pathologist | | | | | At | Signature | + + + + + + | WHITE CELL | 8.0 | 4.4 - 11.0 K/cu | [facility] | | | COUNT | | mm | DEPARTMENT | | | | | | OF | | | | | | PATHOLOGY | | + + + + + + | RED CELL | 2.66 (L) | 4.00 - 5.20 | [facility] | | | COUNT | | M/cu mm | DEPARTMENT | | | | | | OF | | | | | | PATHOLOGY | | + + + + + + | HEMOGLOBIN | 9.2 (L) | 12.0 - 16.0 | [facility] | | | | | g/dL | DEPARTMENT | | | | | | OF | | | | | | PATHOLOGY | | + + + + + + | HEMATOCRIT | 26.8 (L) | 36.0 - 46.0 % | [facility] | | | | | | DEPARTMENT | | | | | | OF | | | | | | PATHOLOGY | | + + + + + + | MCV | 100.5 (H) | 80.0 - 96.0 fL | [facility] | | | | | | DEPARTMENT | | | | | | OF | | | | | | PATHOLOGY | | + + + + + + | MCHC | 34.4 | 33.4 - 35.5 | [facility] | | | | | g/dL | DEPARTMENT | | | | | | OF | | | | | | PATHOLOGY | | + + + + + + | RDW | 13.7 | 11.5 - 15.0 % | [facility] | | | | | | DEPARTMENT | | | | | | OF | | | | | | PATHOLOGY | | + + + + + + | PLATELET | 244 | 150 - 400 K/cu | [facility] | | | COUNT | | mm | DEPARTMENT | | [...] DEPARTMENT OF | [address] | [place] [address] | | | PATHOLOGY | [address] | | | + + + + + | [facility] DEPARTMENT OF | [address] | [place] [address] | | | PATHOLOGY | [address] | | | + + + + + BASIC METABOLIC SET (11/04/2005 6:00 PM PST) + +---------+ + + + | Component | Value | Ref Range | Performed | Pathologist | | | | | At | Signature | + +---------+ + + + | GLUCOSE, | 158 (H) | 65 - 110 mg/dL | [facility] | | | PLASMA | | | DEPARTMENT | | | (LAB) | | | OF | | | | | | PATHOLOGY | | + +---------+ + + + | BUN, PLASMA | 5 (L) | 6 - 20 mg/dL | [facility] | | | (LAB) | | | DEPARTMENT | | | | | | OF | | | | | | PATHOLOGY | | + +---------+ + + + | CREATININE | 0.8 | 0.6 - 1.1 mg/dL | [facility] | | | PLASMA | | | DEPARTMENT | | | (LAB) | | | OF | | | | | | PATHOLOGY | | + +---------+ + + + | SODIUM, | 137 | 136 - 145 | [facility] | | | PLASMA | | mmol/L | DEPARTMENT | | | (LAB) | | | OF | | | | | | PATHOLOGY | | + +---------+ + + + | POTASSIUM, | 4.4 | 3.5 - 5.1 | [facility] | | | PLASMA | | mmol/L | DEPARTMENT | | | (LAB) | | | OF | | | | | | PATHOLOGY | | + +---------+ + + + | CHLORIDE, | 116 (H) | 98 - 107 mmol/L | [facility] | | | PLASMA | | | DEPARTMENT | | | (LAB) | | | OF | | | | | | PATHOLOGY | | + +---------+ + + + | TOTAL CO2, | 20 (L) | 23 - 29 mmol/L | [facility] | | | PLASMA | | | DEPARTMENT | | | (LAB) | | | OF | | | | | | PATHOLOGY | | + +---------+ + + + | CALCIUM, | 7.5 (L) | 8.5 - 10.5 | [facility] | | | PLASMA | | mg/dL | DEPARTMENT | | | (LAB) | | | OF | | | | | | PATHOLOGY | | + +---------+ + + + + + | Specimen | + + | | + + + + + + + | Performing | Address | City/State/Zipcode | Phone Number | | Organization | | | | + + + + + | [facility] DEPARTMENT OF | [address] | [place] [address] | | | PATHOLOGY | [address] | | | + + + + + | [facility] DEPARTMENT OF | [address] | [place] [address] | | | PATHOLOGY | [address] | | | + + + + + BASIC METABOLIC SET (11/03/2005 5:30 PM PST) + +---------+ + + + | Component | Value | Ref Range | Performed | Pathologist | | | | | At | Signature | + +---------+ + + + | GLUCOSE, | 106 | 65 - 110 mg/dL | [facility] | | | PLASMA | | | DEPARTMENT | | | (LAB) | | | OF | | | | | | PATHOLOGY | | + +---------+ + + + | BUN, PLASMA | 7 | 6 - 20 mg/dL | [facility] | | | (LAB) | | | DEPARTMENT | | | | | | OF | | | | | | PATHOLOGY | | + +---------+ + + + | CREATININE | 0.8 | 0.6 - 1.1 mg/dL | [facility] | | | PLASMA | | | DEPARTMENT | | | (LAB) | | | OF | | | | | | PATHOLOGY | | + +---------+ + + + | SODIUM, | 138 | 136 - 145 | [facility] | | | PLASMA | | mmol/L | DEPARTMENT | | | (LAB) | | | OF | | | | | | PATHOLOGY | | + +---------+ + + + | POTASSIUM, | 3.4 (L) | 3.5 - 5.1 | [facility] | | | PLASMA | | mmol/L | DEPARTMENT | | | (LAB) | | | OF | | | | | | PATHOLOGY | | + +---------+ + + + | CHLORIDE, | 101 | 98 - 107 mmol/L | [facility] | | | PLASMA | | | DEPARTMENT | | | (LAB) | | | OF | | | | | | PATHOLOGY | | + +---------+ + + + | TOTAL CO2, | 23 | 23 - 29 mmol/L | [facility] | | | PLASMA | | | DEPARTMENT | | | (LAB) | | | OF | | | | | | PATHOLOGY | | + +---------+ + + + | CALCIUM, | 9.6 | 8.5 - 10.5 | [facility] | | | PLASMA | | mg/dL | DEPARTMENT | | | (LAB) | | | OF | | | | | | PATHOLOGY | | + +---------+ + + + + + | Specimen | + + | | + + + + + + + | Performing | Address | City/State/Zipcode | Phone Number | | Organization | | | | + + + + + | [facility] DEPARTMENT OF | [address] [facility] | [place] [address] | | | PATHOLOGY | [address] | | | + + + + + | [facility] DEPARTMENT OF | [address] [facility] | [place] [address] | | | PATHOLOGY | [address] | | | + + + + + CBC ONLY WITH PLATELET (11/03/2005 5:30 PM PST) + + + + + + | Component | Value | Ref Range | Performed | Pathologist | | | | | At | Signature | + + + + + + | WHITE CELL | 6.7 | 4.4 - 11.0 K/cu | [facility] | | | COUNT | | mm | DEPARTMENT | | | | | | OF | | | | | | PATHOLOGY | | + + + + + + | RED CELL | 4.17 | 4.00 - 5.20 | [facility] | | | COUNT | | M/cu mm | DEPARTMENT | | | | | | OF | | | | | | PATHOLOGY | | + + + + + + | HEMOGLOBIN | 14.8 | 12.0 - 16.0 | [facility] | | | | | g/dL | DEPARTMENT | | | | | | OF | | | | | | PATHOLOGY | | + + + + + + | HEMATOCRIT | 41.8 | 36.0 - 46.0 % | [facility] | | | | | | DEPARTMENT | | | | | | OF | | | | | | PATHOLOGY | | + + + + + + | MCV | 100.3 (H) | 80.0 - 96.0 fL | [facility] | | | | | | DEPARTMENT | | | | | | OF | | | | | | PATHOLOGY | | + + + + + + | MCHC | 35.3 | 33.4 - 35.5 | [facility] | | | | | g/dL | DEPARTMENT | | | | | | OF | | | | | | PATHOLOGY | | + + + + + + | RDW | 13.6 | 11.5 - 15.0 % | [facility] | | | | | | DEPARTMENT | | | | | | OF | | | | | | PATHOLOGY | | + + + + + + | PLATELET | 319 | 150 - 400 K/cu | [facility] | | | COUNT | | mm | DEPARTMENT | | [...] | + + + + + | [facility] DEPARTMENT OF | [address] | [place] [address] | | | PATHOLOGY | [address] | | | + + + + + | [facility] DEPARTMENT OF | [address] [facility] | [place] [address] | | | PATHOLOGY | [address] | | | + + + + + LIVER SET (11/03/2005 5:30 PM PST) + +-------+ + + + | Component | Value | Ref Range | Performed | Pathologist | | | | | At | Signature | + +-------+ + + + | ALBUMIN, | 3.8 | 3.5 - 4.7 g/dL | [facility] | | | PLASMA | | | DEPARTMENT | | | (LAB) | | | OF | | | | | | PATHOLOGY | | + +-------+ + + + | BILIRUBIN | 0.6 | 0.3 - 1.2 mg/dL | [facility] | | | TOTAL | | | DEPARTMENT | | | | | | OF | | | | | | PATHOLOGY | | + +-------+ + + + | BILIRUBIN | < 0.1 | <0.4 mg/dL | [facility] | | | DIRECT | | | DEPARTMENT | | | | | | OF | | | | | | PATHOLOGY | | + +-------+ + + + | ALK PHOS | 93 | 42 - 98 U/L | [facility] | | | | | | DEPARTMENT | | | | | | OF | | | | | | PATHOLOGY | | + +-------+ + + + | AST(SGOT) | 18 | 15 - 41 U/L | [facility] | | | | | | DEPARTMENT | | | | | | OF | | | | | | PATHOLOGY | | + +-------+ + + + | ALT (SGPT) | 22 | 13 - 48 U/L | [facility] | | | | | | DEPARTMENT | | | | | | OF | | | | | | PATHOLOGY | | + +-------+ + + + | TOTAL | 6.8 | 6.1 - 7.9 g/dL | [facility] | | | PROTEIN, | | | DEPARTMENT | | | PLASMA | | | OF | | | (LAB) | | | PATHOLOGY | | + +-------+ + + + + + | Specimen | + + | | + + + + + + + | Performing | Address | City/State/Zipcode | Phone Number | | Organization | | | | + + + + + | [facility] | [address] [facility] | [place] [address] | | | PATHOLOGY | [address] | | | + + + + + | [facility] | [address] [facility] | [place] [address] | | | PATHOLOGY | [address] | | | + + + + + PROTHROMBIN TIME (11/03/2005 5:30 PM PST) + + + + + + | Component | Value | Ref Range | Performed | Pathologist | | | | | At | Signature | + + + + + + | INR | 0.94Comment: | 0.90 - 1.20 INR | [facility] | | | | PT INR Therapeutic [...] | + + + + + | [facility] DEPARTMENT OF | [address] | [place] [address] | | | PATHOLOGY | [address] | | | + + + + + | [facility] DEPARTMENT OF | [address] | [place] [address] | | | PATHOLOGY | [address] | | | + + + + + APTT (ACT. PART. THROMBO TIME) (11/03/2005 5:30 PM PST) + + + + + + | Component | Value | Ref Range | Performed | Pathologist | | | | | At | Signature | + + + + + + | APTT | 27.6Comment: | 26.0 - 36.0 | [facility] | | | | APTT Therapeutic Range | seconds | DEPARTMENT | | | | | | OF | | | | | | PATHOLOGY | | | | (75-120)sec | | | | | | Heparin levels | | | | | | of 0.35-0.7 U/mL | | | | + + + + + + + + | Specimen | + + | | + + + + + + + | Performing | Address | City/State/Zipcode | Phone Number | | Organization | | | | + + + + + | [facility] DEPARTMENT OF | [address] | [place] [address] | | | PATHOLOGY | [address] | | | + + + + + | [facility] DEPARTMENT OF | [address] | [place] [address] | | | PATHOLOGY | [address] | | | + + + + + BLOOD BANK PRODUCT (11/03/2005 1:00 PM PST) + + + + + + | Component | Value | Ref Range | Performed | Pathologist | | | | | At | Signature | + + + + + + | PRODUCT | PACKED CELLS | | [facility] | | | DESCRIPTION | | | DEPARTMENT | | | | | | OF | | | | | | PATHOLOGY | | + + + + + + | PRODUCT | [id number] | | [facility] | | | UNIT # | | | DEPARTMENT | | | | | | OF | | | | | | PATHOLOGY | | + + + + + + | UNIT ABO | A | | [facility] | | | | | | DEPARTMENT | | | | | | OF | | | | | | PATHOLOGY | | + + + + + + | UNIT RH | POS | | [facility] | | | | | | DEPARTMENT | | | | | | OF | | | | | | PATHOLOGY | | + + + + + + | STATUS OF | Transfused | | [facility] | | | UNIT | | | DEPARTMENT | | | [...] DEPARTMENT OF | [address] | [place] [address] | | | PATHOLOGY | [address] | | | + + + + + | [facility] DEPARTMENT | [address] | [place] [address] | | | PATHOLOGY | [address] | | | + + + + + BLOOD BANK PRODUCT (11/03/2005 1:00 PM PST) + + + + + + | Component | Value | Ref Range | Performed | Pathologist | | | | | At | Signature | + + + + + + | PRODUCT | PACKED CELLS | | [facility] | | | DESCRIPTION | | | DEPARTMENT | | | | | | OF | | | | | | PATHOLOGY | | + + + + + + | PRODUCT | [id number] | | [facility] | | | UNIT # | | | DEPARTMENT | | | | | | OF | | | | | | PATHOLOGY | | + + + + + + | UNIT ABO | A | | [facility] | | | | | | DEPARTMENT | | | | | | OF | | | | | | PATHOLOGY | | + + + + + + | UNIT RH | POS | | [facility] | | | | | | DEPARTMENT | | | | | | OF | | | | | | PATHOLOGY | | + + + + + + | STATUS OF | Transfused | | [facility] | | | UNIT | | | DEPARTMENT | | | [...] | + + + + + | [facility] DEPARTMENT | [address] [facility] | [place] [address] | | | PATHOLOGY | [address] | | | + + + + + | [facility] DEPARTMENT OF | [address] [facility] | [place] [address] | | | PATHOLOGY | [address] | | | + + + + + TYPE AND SCREEN (11/03/2005 1:00 PM PST) + +-------+ + + + | Component | Value | Ref Range | Performed | Pathologist | | | | | At | Signature | + +-------+ + + + | ABO GROUP | A | | [facility] | | | | | | DEPARTMENT | | | | | | OF | | | | | | PATHOLOGY | | + +-------+ + + + | RH TYPE | POS | | [facility] | | | | | | DEPARTMENT | | | | | | OF | | | | | | PATHOLOGY | | + +-------+ + + + | ANTIBODY | NEG | | [facility] | | | SCREEN | | | DEPARTMENT | | | | | | OF | | | | | | PATHOLOGY | | + +-------+ + + + + + | Specimen | + + | | + + + + + | Narrative | Performed At | + + + | Instrument Testing Instrument Testing | [facility] | | | DEPARTMENT OF | | | PATHOLOGY | + + + + + + + + | Performing | Address | City/State/Zipcode | Phone Number | | Organization | | | | + + + + + | [facility] | [address] | [place] [address] | | | PATHOLOGY | [address] | | | + + + + + | [facility] | [address] | [place] [address] | | | PATHOLOGY | [address] | | | + + + + + documented in this encounter Visit Diagnoses Not on filedocumented in this encounter"
--- OUTSIDE RECORDS SUMMARY | ~2019-11-08 | XMS | Encounter Summary ---
Demographics + + + | Address | [address] | | | [place] [address] | + + + | Home Phone | | + + + | Preferred Language | Unknown | + + + | Marital Status | | + + + | Hoahaoism Affiliation | Unknown | + + + | Race | Unknown | + + + | Ethnic Group | Unknown | + + + Author + + + | Author | [facility] | | | and [place] | + + + | Organization | [facility] | | [...] #3 | | | | | , [address] | | + + + + + Care Team Providers + +------+ + | Care Field Service Technician Name | Role | Phone | + +------+ + PCP | Unavailable | + +------+ + Encounter Details +--------+ + + + + | Date | Type | Department | Care Team | Description | +--------+ + + + + | 04/26/ | Hospital | [facility] | Solomon Gagnon, | | | 2009 | Encounter | MED CTR LABORATORY | [address] [facility] | | | | | [address] | [place], [place] | | | | | [place] | [address] | | | | | [address] | | | | | | [phone] | | | +--------+ + + + [...] Gastroenterology | [facility], | | | 2019 | Visit | | CRISTHIAN Carbone [address] | | | | | | [address] | | | | | | [place] | | | | | | [address] | | | | | | | | +--------+---------+ + + + documented as of this encounter Visit Diagnoses Not on filedocumented in this encounter"
--- OUTSIDE RECORDS SUMMARY | ~2019-11-08 | XMS | Encounter Summary ---
Demographics + + + | Address | [address] | | | [place] [address] | + + + | Home Phone | | + + + | Preferred Language | Unknown | + + + | Marital Status | | + + + | Voodoo Affiliation | Unknown | + + + | Race | Unknown | + + + | Ethnic Group | Unknown | + + + Author + + + | Author | [facility] | | | and [place] | + + + | Organization | [facility] | | | and [place] | + + + | Address | Unknown | + + + | Phone | Unavailable | + + + Support + + + + + | Name | Relationship | Address | Phone | + + + + + | Darius Fields | ECON | [address] | | | | | , [address] | | + + + + + Care Team Providers + +------+ + | Care Assistant Director Of Security Name | Role | Phone | + [...] | | | | | | | ME REMV | | | | | | [...] Nephrectomy | | | | [address] | [address] [place] | | | | | [place] | [address] | | | | | [address] | | | | | | [phone] | | | +--------+---------+ + + + [...] might be different f rom the original. [facility] Discharge Summary Patient Name: Samreen Zaragoza [...] might be different f rom the original. [facility] Progress Note Samreen Zaragoza is now [...] Signed by: Gulshan Dumont MD, 04/13/2018 6:00 [facility] Dum[facility] MD at [...] Signed by: Gulshan Dumont MD, 04/12/2018 10:57 [facility] Gulshan Dumont MD at [...] by: Gulshan Dumont MD, 04/11/2018 12:[address] [facility] Gul[facility]an Dumont MD at 04/12 7:28 PM PDTSpToi li MD - 04/10/2018 8:06 AM PDTFormatting of this note rich ht be different from the original. [facility] Progress Note Samreen Zaragoza is now [...] | 12/02/ | Office | Gastroenterology | [facility], | | | 2019 | Visit | | CRISTHIAN Carbone [address] | | | | | | [address] | | | | | | [place] | | | | | | [phone] | | | | | | | [...] mL/min/1.73m2 | [facility] | | | [place] | RATE,ESTIMATED | | MEDICAL | | | | mL/min/1.97q6Cqcf than | | CENTER - | | [...] [address] | [place] | [phone] | | [facility] | | [address] | | | - LABORATORY | | [...] [address] | [place] | [phone] | | [facility] | | [address] | | | - LABORATORY | | [...] | | | | REMINGTON GRANT MD ([id number]) | | | | | | on [...] ST. | [address] | [place] | [phone] | | [facility] | | [address] | | | - LABORATORY | | [...] | | | | | mg/dL | [facility] | | | | | | MEDICAL | | | | | | CENTER - | | | | | | LABORATORY | | + + + + + + | eGFR if not | >60Comment: GLOMERULAR | >=60 | [facility] | | | | FILTRATION | mL/min/1.73m2 | [facility] | | | [place]IAN | RATE,ESTIMATED | | MEDICAL | | | | mL/min/1.72y4Ulvq than | | CENTER - | | [...] | | | | | mg/dL | [facility] | | | | | | MEDICAL [...] [address] | [place] | [phone] | | [facility] | | [address] | | | - LABORATORY | | [...] | | | | | M/uL | [facility] | | | | | | MEDICAL [...] [address] | [place] | [phone] | | [facility] | | [address] | | | - LABORATORY | | [...] ST. | [address] | [place], [place] | | | [facility] | | [address] | | | - BLOOD BANK | | | | + + + + + Surgical Pathology Exam (04/09/2018 12:00 AM PDT) + + | Specimen | + + | | + + + + + | Narrative | Performed At | + + + | SPECIMEN(S): A RIGHT KIDNEY SPECIMEN SOURCE: A. 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 - Dilated ureter with benign | | | features. - Negative for evidence of neoplasia. JVR:[facility]:C2NR | | | GROSS DESCRIPTION: The specimen [...] dilated. The central collecting system is dilated. Cloth Napping Supervisor | | | sections are submitted in eight cassettes. Block [place]ll[place]: (A1) | | | Vessel near renal hilum margin and ureter at margin (A2-A6) | | | Cloth Napping Supervisor sections of atrophic cystic kidney (A7-A8) Renal | | | sinus JVR:[facility] MICROSCOPIC EXAMINATION: Histologic | | | sections of all submitted blocks are examined by light microscopy. | | | These findings, together with the gross examination, support the | | | pathologic diagnosis. PERFORMING LABORATORY: Tissue processing | | | and slide preparation were performed by [facility], [address] | | [facility] [address], [place] [address] (Watermelon Inspector: Remington | | | Dina Lazcano; CLIA#: [id number]). Professional interpretation was | | | performed by [facility], [facility] | | | Branch, [address] [facility], [place] [address] (Watermelon Inspector: | | | Remington Lazcano M.D.; CLIA#: [id number]). Diagnostician: Remington | | | Cole Lazcano [...]
--- OUTSIDE RECORDS SUMMARY | ~2019-11-08 | XMS | Encounter Summary ---
Demographics + + + | Address | [address] | | | [place] [address] | + + + | Home Phone | | + + + | Preferred Language | Unknown | + + + | Marital Status | | + + + | Worship Affiliation | Unknown | + + + | Race | Unknown | + + + | Ethnic Group | Unknown | + + + Author + + + | Author | [facility] | | | and [place] | + + + | Organization | [facility] | | | and [place] | + + + | Address | Unknown | + + + | Phone | Unavailable | + + + Support + + + + + | Name | Relationship | Address | Phone | + + + + + | Darius Fields | HELEN | [address] | | | | | , [address] | | + + + + + Care Team Providers + +------+ + | Care Orchid Transplanter Name | Role | Phone | + [...] + + | 05/06/ | Telephone | [facility] | Toi Gonzalez | Incontinence | | 2018 | | [address] | MD Leighann [address] | Supplies | | | | [place], [place] | [place], [place] | | | | | [address] | [address] | | | | | [phone] | | | +--------+ + + + [...] | 02/06/ | Office | Gastroenterology | [facility], | | | 2020 | Visit | | CRISTHIAN Carbone [address] | | | | | | [address] | | | | | | [place] | | | | | | [address] | | | | | | | | +--------+---------+ + + + documented as of this encounter Visit Diagnoses + + | Diagnosis | + + | 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
--- OUTSIDE RECORDS SUMMARY | ~2019-11-08 | XMS | Encounter Summary ---
Demographics + + + | Address | [address] | | | [place] [address] | + + + | Home Phone | | + + + | Preferred Language | Unknown | + + + | Marital Status | | + + + | Yazidi Affiliation | Unknown | + + + | Race | Unknown | + + + | Ethnic Group | Unknown | + + + Author + + + | Author | [facility] | | | and [place] | + + + | Organization | [facility] | | | and [place] | + + + | Address | Unknown | + + + | Phone | Unavailable | + + + Support + + + + + | Name | Relationship | Address | Phone | + + + + + | Darius Diamond | HELEN | [address] | | | | | , [address] | | + + + + + Care Team Providers + +------+ + | Care Casting Machine Service Operator Name | Role | Phone | [...] | | Recurrent | Toi | [address] | | | | | UTI | MD Leighann | [place], | | | | | Hematuria, | [address] | [place] [address] | | | | | unspecified | [place] | Phone: | | | | | type | [place], [place] | [phone] | | | | | Procedures | [address] | Fax: | | | | | CT Urogram w | Phone: | [phone] | | | | | wo Contrast | [phone] | | | | | | CHG CT | Fax: | | | | | | SCAN,ABDOMEN | [phone] | | | | | | T [...] | | Recurrent | Toi | [address] | | | | | UTI | MD Leighann | [place], | | | | | Hematuria, | [address] | [place] [address] | | | | | unspecified | [place] | Phone: | | | | | type | [place], [place] | [phone] | | | | | Procedures | [address] | Fax: | | | | | CT Urogram w | Phone: | [phone] | | | | | wo Contrast | [phone] | | | | | | CHG CT | Fax: | | | | | | SCAN,ABDOMEN | [phone] | | | | | | T AND | | | | | | | PELVIS,COMBO | | | +--------+--------+ + + + + Encounter Details +--------+ + + + + | Date | Type | Department | Care Team | Description | +--------+ + + + + | 02/17/ | Hospital | [facility] | Toi Gonzalez | Recurrent UTI; | | 2018 | Encounter | [facility] [address] | MD Leighann [address] | Hematuria, | | | | [place], | [place], [place] | unspecified type | | | | [place] [address] | [address] | | | | | [phone] | | | +--------+ + + + [...] | 12/02/ | Office | Gastroenterology | [facility], | | | 2020 | Visit | | CRISTHIAN Carbone [address] | | | | | | [address] | | | | | | [place] | | | | | | [address] | | | | | | | [...] + + | Performing | Address | City[facility] | Phone Number | | Organization [...]
--- OUTSIDE RECORDS SUMMARY | ~2019-11-08 | XMS | Encounter Summary ---
Demographics + + + | Address | [address] | | | [place] [address] | + + + | Home Phone | | + + + | Preferred Language | Unknown | + + + | Marital Status | Single | + + + | Restorationism Affiliation | CHR | + + + | Race | White | + + + | Ethnic Group | Not or | + + + Author + + + | Author | [facility] | + + + | Organization | [facility] | + + + | Address | Unknown | + + + | Phone | Unavailable | + + + Support + + + + + | Name | Relationship | Address | Phone | + + + + + | Darius Fields | HELEN | [address] | | | | | [place] [address] | | + + + + + Care Team Providers + +------+ + | Care Probation Officer Name | Role | Phone | + +------+ + | Serena Barroso | PCP | | + +------+ + Encounter Details +--------+ + + + + | Date | Type | Department | Care Team | Description | +--------+ + + + + | 08/05/ | [employer] | Urology Oncology | Rn, [address] | Bladder Extrophy | | 2006 | | [address] | [place] | (Primary Dx) | | | | Mailcode: [id number] | Road [place], [place] | | | | | [facility] | [address] | | | | | and Healing, | | | | | | Building | | | | | | Floor [place], [place] | | | | | | [address] | | | | | | [phone] | | | +--------+ + + + [...]
--- OUTSIDE RECORDS SUMMARY | ~2019-11-08 | XMS | Encounter Summary ---
Demographics + + + | Address | [address] | | | [place] [address] | + + + | Home Phone | | + + + | Preferred Language | Unknown | + + + | Marital Status | | + + + | Anglican Affiliation | Unknown | + + + | Race | Unknown | + + + | Ethnic Group | Unknown | + + + Author + + + | Author | [facility] | | | and [place] | + + + | Organization | [facility] | | | and [place] | + + + | Address | Unknown | + + + | Phone | Unavailable | + + + Support + + + + + | Name | Relationship | Address | Phone | + + + + + | Darius Fields | HELEN | [address] | | | | | , [address] | | + + + + + Care Team Providers + +------+ + | Care Barrer And Tacker Name | Role | Phone | + [...] + + | 02/20/ | Telephone | [facility] | Toi Gonzalez | Surgery Appointment | | 2018 | | [address] | MD Leighann [address] | | | | | [place], [place] | [place], [place] | | | | | [address] | [address] | | | | | [phone] | | | +--------+ + + + [...] [place] | | | | | | [address] | | | | | | | | +--------+---------+ + + + documented as of this encounter Visit Diagnoses + + | Diagnosis | + + | 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
--- OUTSIDE RECORDS SUMMARY | ~2019-11-08 | XMS | Encounter Summary ---
Demographics + + + | Address | [address] | | | [place] [address] | + + + | Home Phone | | + + + | Preferred Language | Unknown | + + + | Marital Status | | + + + | Shinto Affiliation | Unknown | + + + | Race | Unknown | + + + | Ethnic Group | Unknown | + + + Author + + + | Author | [facility] | | | and [place] | + + + | Organization | [facility] | | | and [...] #3 | | | | | , [address] | | + + + + + Care Team Providers + +------+ + | Care Drag Car Racer Name | Role | Phone | + +------+ + PCP | Unavailable | + +------+ + Encounter Details +--------+ + + + + | Date | Type | Department | Care Team | Description | +--------+ + + + + | 04/20/ | [facility] | [facility] | Martine Mcdermott | | | 2008 | Encounter | MED CTR EMERGENCY | MD Pat [address] | | | | | CENTER [address] | [facility], | | | | | [place], [place] | [place] [address] | | | | | [address] | [phone] | | | | | [phone] | | | +--------+ + + + [...] | 12/02/ | Office | Gastroenterology | [facility], | | | 2019 | Visit | | CRISTHIAN Carbone [address] | | | | | | [address] | | | | | | [place] | | | | | | [address] | | | | | | | | +--------+---------+ + + + documented as of this encounter Visit Diagnoses Not on filedocumented in this encounter"
--- OUTSIDE RECORDS SUMMARY | ~2019-11-08 | XMS | Encounter Summary ---
Demographics + + + | Address | [address] | | | [place] [address] | + + + | Home Phone [...] + + | Author | [facility] | | | and [place] | + + + | Organization | [facility] | | | and [place] | + + + | Address | Unknown | + + + | Phone | Unavailable | + + + Support + + + + + | Name | Relationship | Address | Phone | + + + + + | Darius Fields | ECON | [address] | | | | | , [address] | | + + + + + Care Team Providers + +------+ + | Care Residence Life Coordinator Name | Role | Phone | [...] | | | | [address] | [facility] | | | 07/26/ | | [place], [place] | [place] [address] | | | 2004 | | [address] | [phone] | | | | | [phone] | | | +--------+ + + + [...] | 12/02/ | Office | Gastroenterology | [facility], | | | 2019 | Visit | | CRISTHIAN Carbone [address] | | | | | | [address] | | | | | | [place] | | | | | | [address] | | | | | | | | +--------+---------+ + + + documented as of this encounter Visit Diagnoses Not on filedocumented in this encounter"
--- OUTSIDE RECORDS SUMMARY | ~2019-11-08 | XMS | Encounter Summary ---
Demographics + + + | Address | [address] | | | [place] [address] | + + + | Home Phone [...] + + | Author | [facility] | + + + | Organization | [facility] | + + + | Address | Unknown | + + + | Phone | Unavailable | + + + Support + + + + + | Name | Relationship | Address | Phone | + + + + + | Darius Fields | HELEN | [address] | | | | | [place] [address] | | + + + + + Care Team Providers + +------+ + | Care Human Resource Assistant Name | Role | Phone | + +------+ + | Serena Barroso | PCP | | + +------+ + Encounter Details +--------+ + + + + | Date | Type | Department | Care Team | Description | +--------+ + + + + | 08/05/ | [employer] | Urology Oncology | Rn, U[address] | Bladder Extrophy | | 2006 | | [address] | [place] [place] | (Primary Dx) | | | | Mailcode: CH10U | Road [place], [place] | | | | | [facility] | [address] | | | | | and Healing, | | | | | | Building | | | | | | Floor [place], [place] | | | | | | [address] | | | | | | [phone] | | | +--------+ + + + [...]
--- OUTSIDE RECORDS SUMMARY | ~2019-11-08 | XMS | Encounter Summary ---
Demographics + + + | Address | [address] | | | [place] [address] | + + + | Home Phone [...] + + + | Author | [facility] | + + + | Organization | [facility] | + + + | Address | Unknown | + + + | Phone | Unavailable | + + + Support + + + + + | Name | Relationship | Address | Phone | + + + + + | Darius Fields | HELEN | [address] | | | | | [place] [address] | | + + + + + Care Team Providers + +------+ + | Care Glass Cut Off Supervisor Name | Role | Phone | [...] | | | | | | Floor [place], [place] | | | | | | [address] | | | | | | [phone] | | | +--------+ + + + [...]
--- OUTSIDE RECORDS SUMMARY | ~2019-11-08 | XMS | Encounter Summary ---
Demographics + + + | Address | [address] | | | [place] [address] | + + + | Home Phone | | + + + | Preferred Language | Unknown | + + + | Marital Status | Single | + + + | Druze Affiliation | CHR | + + + [...] | | | | | [place] [address] | | + + + + + Care Team Providers + +------+ + | Care Jewel Inserter Name | Role | Phone | + +------+ + | Serena Barroso | PCP | | + +------+ + Encounter Details +--------+ + + + + | Date | Type | Department | Care Team | Description | +--------+ + + + + | 06/04/ | Telephone | Urology Oncology | Hollie Logan, | | | 2009 | | [address] | Blue Smith MD [address] | | | | | Mailcode: CH10U | [facility] | | | | | [facility] | [address] | | | | | and Healing, | [place] [address] | | | | | [facility] | [phone] | | | | | Floor [place], [place] | | | | | | [address] | | | | | | [phone] | | | +--------+ + + + [...]
--- OUTSIDE RECORDS SUMMARY | ~2019-11-08 | XMS | Encounter Summary ---
Demographics + + + | Address | [address] | | | [place] [address] | + + + | Home Phone [...] Organization | [facility] | | | and [...] #3 | | | | | , [address] | | + + + + + Care Team Providers + +------+ + | Care Sustainability Consultant Name | Role | Phone | + +------+ + PCP | Unavailable | + +------+ + Encounter Details +--------+ + + + + | Date | Type | Department | Care Team | Description | +--------+ + + + + | 01/04/ | Hospital | [facility] | | | | 2007 | Encounter | MED CTR EMERGENCY | | | | | | CENTER [address] | | | | | | [place] | | | | | | [address] | | | | | | [phone] | | | +--------+ + + + [...] | 12/02/ | Office | Gastroenterology | [facility], | | | 2020 | Visit | | CRISTHIAN Carbone [address] | | | | | | [address] | | | | | | [place] | | | | | | [address] | | | | | | | | +--------+---------+ + + + documented as of this encounter Visit Diagnoses Not on filedocumented in this encounter"
--- OUTSIDE RECORDS SUMMARY | ~2019-11-08 | XMS | Encounter Summary ---
Demographics + + + | Address | [address] | | | [place] [address] | + + + | Home Phone [...] | | | | | [place] [address] | | + + + + + Care Team Providers + +------+ + | Care Supervisor Publications Name | Role | Phone | + [...] [address] | | | | | | [place], [place] | | | | | | [address] | | | | | | [phone] | | | +--------+------+ + + + [...] + + + + | [facility] | [address] [facility] | [place] [address] | | | PATHOLOGY | [address] | | | + + + + + | [facility] | [facility] | [place] [place] [address] | | | PATHOLOGY | [address] | | | + + + + + documented in this encounter Visit Diagnoses + + | Diagnosis | + + | Renal insufficiency Unspecified disorder of kidney and ureter | + + documented in this encounter"
--- OUTSIDE RECORDS SUMMARY | ~2019-11-08 | XMS | Encounter Summary ---
Demographics + + + | Address | [address] | | | [place] [address] | + + + | Home Phone | | + + + | Preferred Language | Unknown | + + + | Marital Status | | + + + | Zoroastrianism Affiliation | Unknown | + + + | Race | Unknown | + + + | Ethnic Group | Unknown | + + + Author + + + | Author | [facility] | | | and [place] | + + + | Organization | [facility] | | | and [...] #3 | | | | | , [address] | | + + + + + Care Team Providers + +------+ + | Care Tenter Frame Operator Name | Role | Phone | + +------+ + PCP | Unavailable | + +------+ + Encounter Details +--------+ + + + + | Date | Type | Department | Care Team | Description | +--------+ + + + + | 12/18/ | [facility] | [facility] | Evan Bolton | | | 2007 - | Encounter | MED CTR EMERGENCY | MD [address] | | | | | [place] [address] | [place] | | | / | | [place], [place] | [place] [address] | | | 2007 | | [address] | [phone] | | | | | [phone] | | | +--------+ + + + [...] | 12/02/ | Office | Gastroenterology | [facility], | | | 2019 | Visit | | CRISTHIAN Carbone [address] | | | | | | [address] | | | | | | [place] | | | | | | [address] | | | | | | | | +--------+---------+ + + + documented as of this encounter Visit Diagnoses Not on filedocumented in this encounter"
--- OUTSIDE RECORDS SUMMARY | ~2019-11-08 | XMS | Encounter Summary ---
Demographics + + + | Address | [address] | | | [place] [address] | + + + | Home Phone [...] | [facility] | [...] #3 | | | | | , [address] | | + + + + + Care Team Providers + +------+ + | Care Edge Polisher Name | Role | Phone | + +------+ + PCP | Unavailable | + +------+ + Encounter Details +--------+ + + + + | Date | Type | Department | Care Team | Description | +--------+ + + + + | 04/13/ | [facility] | [facility] | Evan Bolton | | | 2007 - | Encounter | MED CTR EMERGENCY | MD [address] | | | | | [place] [address] | [place] | | | 04/14/ | | [place], [place] | [place] [address] | | | 2007 | | [address] | [phone] | | | | | [phone] | | | +--------+ + + + [...] | 12/02/ | Office | Gastroenterology | [facility], | | | 2019 | Visit | | CRISTHIAN Carbone [address] | | | | | | [address] | | | | | | [place] | | | | | | [address] | | | | | | | | +--------+---------+ + + + documented as of this encounter Visit Diagnoses Not on filedocumented in this encounter"
--- OUTSIDE RECORDS SUMMARY | ~2019-11-08 | XMS | Encounter Summary ---
Demographics + + + | Address | [address] | | | [place] [address] | + + + | Home Phone | | + + + | Preferred Language | Unknown | + + + | Marital Status | Single | + + + | Hindu Affiliation | CHR | + + + | Race | White | + + + | Ethnic Group | Not or | + + + Author + + + | Author | [facility] | + + + | Organization | [facility] | + + + | Address | Unknown | + + + | Phone | Unavailable | + + + Support + + + + + | Name | Relationship | Address | Phone | + + + + + | Darius Fields | HELEN | [address] | | | | | [place] [address] | | + + + + + Care Team Providers + +------+ + | Care Materials Planning Analyst Name | Role | Phone | [...] | | | Mailcode: CH10U | Road [place], [place] | know where to get | | | | [facility] | [address] | [address] [facility]) | | | | and Healing, | | | | | | Building 1, | | | | | | Floor [place], [place] | | | | | | [address] | | | | | | [phone] | | | +--------+ + + + [...]
--- OUTSIDE RECORDS SUMMARY | ~2019-11-08 | XMS | Encounter Summary ---
Demographics + + + | Address | [address] | | | [place] [address] | + + + | Home Phone [...] | | | | | [place] [address] | | + + + + + Care Team Providers + +------+ + | Care Mainspring Reverse Winder Name | Role | Phone | + [...] | | | | [address] | [place], [place] | | | | | | [place], [place] | [address] | | | | | | [address] | | +--------+--------+ + + + + [...] | Artificial Opening | | | | [place] [facility] | | of Urinary Tract; | | | | and Healing, | | Bladder Extrophy | | | | Building | | | | | | Floor [place], [place] | | | | | | [address] | | | | | | [phone] | | | +--------+---------+ + + + [...] the cystogram performed today. Lacy Flowers M.D. automatic centrifugal station operator Section of Urologic Oncology Division of Urology & Renal Transplantation [facility] reanne Loving - 8 3:21 PM PDTProcedure: Catheter placement Indication: Loopogram and collection of urine for culture. Placement of 16 FR 5cc Latex cash catheter for loopogram per verbal order Dr. Flowers. Dr. Flowers was present in clinic during placement of catheter. The patient was identified, all supplies were ready. The patient's stoma was prepped with Betadine, and a [id number] FR Latex cash catheter was inserted into [...] has been treated for UTIs by [facility] providers. She describes right "kidney pain" which [...] Salazar MD. UROLOGY ADULT [address] [facility], 10th [place] [address] alachellemichel Reinaldo - 0 02/04/2008 [...] | + +--------+ + + + | MD CYSTOGRAPHY, | Routin | 02/04/2008 | Renal | Results for this | | GLOBAL | e | | Insufficiency | procedure are in the | | | | | | results section. | + +--------+ + + + | MD INSERT,TEMP | Routin | 02/04/2008 | Bladder Extrophy | | | INDWELLING BLAD | e | | | | | FRANKIESIMPLE | | | | | + +--------+ + + + | MD INJECTION FOR | Routin | 02/04/2008 | [...] | + + + + + | [facility] DE[facility] | [address] [facility] | [place] [address] | | | PATHOLOGY | [address] | | | + + + + + | [facility] DEPARTMENT [facility] | [address] [facility] | [place] [address] | | | PATHOLOGY | [address] [...] DEPARTMENT OF | [address] | [place] [address] | | | PATHOLOGY | [address] | | | + + + + + | [facility] | [address] | [place] [address] | | | PATHOLOGY | [address] [...] Lab) | | | | | | [facility] | | | | | | [address] | | | | | [address] | | | | | | [place], [place] | | | | | | [id number]: Test | | | | | | performed at [facility] | | | | | | [facility] | | | | | | Laboratory. | | | | + + + + + + + + | Specimen | + + | Urine - Catheterized | + + + + + + + | Performing | Address | City/State/Zipcode | Phone Number | | Organization | | | | + + + + + | [facility] | [address] | [place] [address] | | | LAB-MICRO | | | | + + + + + MD INJECTION FOR BLADDER X-RAY (02/04/2008) + + + | Narrative | Performed At | + + + | See procedure note- images saved and documented in progress note. | | + + + MD CYSTOGRAPHY, GLOBAL (02/04/2008) + + + | [...] Urology & Renal | | | Transplantation [facility] | | + + + documented in this encounter Visit Diagnoses + + | Diagnosis | + + | Renal insufficiency Unspecified disorder of kidney and ureter | + + | Status of other artificial opening of urinary tract | + + | Bladder extrophy Exstrophy of urinary bladder | + + documented in this encounter
--- OUTSIDE RECORDS SUMMARY | ~2019-11-08 | XMS | Encounter Summary ---
Demographics + + + | Address | [address] | | | [place] [address] | + + + | Home Phone | | + + + | Preferred Language | Unknown | + + + | Marital Status | | + + + | Synagogue Affiliation | Unknown | + + + | Race | Unknown | + + + | Ethnic Group | Unknown | + + + Author + + + | Author | [facility] | | | and [place] | + + + | Organization | [facility] | | | and [place] | + + + | Address | Unknown | + + + | Phone | Unavailable | + + + Support + + + + + | Name | Relationship | Address | Phone | + + + + + | Darius Fields | ECON | [address] | | | | | , [address] | | + + + + + Care Team Providers + +------+ + | Care Career Services Representative Name | Role | Phone | + +------+ + PCP | Unavailable | + +------+ + Encounter Details +--------+ + + + + | Date | Type | Department | Care Team | Description | +--------+ + + + + | 12/18/ | [facility] | [facility] | Evan Bolton | | | 2007 - | Encounter | MED CTR EMERGENCY | MD [address] | | | | | [place] [address] | [place] | | | / | | [place], [place] | [place] [address] | | | 2007 | | [address] | [phone] | | | | | [phone] | | | +--------+ + + + [...] | 12/02/ | Office | Gastroenterology | [facility], | | | 2019 | Visit | | CRISTHIAN Carbone [address] | | | | | | [address] | | | | | | [place] | | | | | | [address] | | | | | | | | +--------+---------+ + + + documented as of this encounter Visit Diagnoses Not on filedocumented in this encounter"
--- OUTSIDE RECORDS SUMMARY | ~2019-11-08 | XMS | Encounter Summary ---
Demographics + + + | Address | [address] | | | [place] [address] | + + + | Home Phone [...] | Organization | [facility] | | [...] #3 | | | | | , [address] | | + + + + + Care Team Providers + +------+ + | Care Soft Mud Molder Name | Role | Phone | + +------+ + PCP | Unavailable | + +------+ + Encounter Details +--------+ + + + + | Date | Type | Department | Care Team | Description | +--------+ + + + + | 06/03/ | Hospital | [facility] | | | | 2006 | Encounter | MED CTR EMERGENCY | | | | | | CENTER [address] | | | | | | [place] | | | | | | [address] | | | | | | [phone] | | | +--------+ + + + [...] | 12/02/ | Office | Gastroenterology | [facility], | | | 2020 | Visit | | CRISTHIAN Carbone [address] | | | | | | [address] | | | | | | [place] | | | | | | [address] | | | | | | | | +--------+---------+ + + + documented as of this encounter Visit Diagnoses Not on filedocumented in this encounter"
--- OUTSIDE RECORDS SUMMARY | ~2019-11-08 | XMS | Encounter Summary ---
Demographics + + + | Address | [address] | | | [place] [address] | + + + | Home Phone [...] | | | | | [place] [address] | | + + + + + Care Team Providers + +------+ + | Care Bull Rider Name | Role | Phone | + [...] W | | | | ON | [facility] 4th Floor [address] | [facility] | | | | | [facility] | Road [place], [place] | | | | | Mailcode: [facility] | [address] | | | | | [facility] | | | | | | and Healing, | | | | | | Building 1,4th Floor | | | | | | [place], [place] | | | | | | [address] | | | | | | [phone] | | | +--------+ + + + [...]
--- OUTSIDE RECORDS SUMMARY | ~2019-11-08 | XMS | Encounter Summary ---
Demographics + + + | Address | [address] | | | [place] [address] | + + + | Home Phone [...] Author + + + | Author | [facility] | + + + | Organization | [facility] | + + + | Address | Unknown | + + + | Phone | Unavailable | + + + Support + + + + + | Name | Relationship | Address | Phone | + + + + + | Darius Fields | HELEN | [address] | | | | | [place] [address] | | + + + + + Care Team Providers + +------+ + | Care Advanced Manager Name | Role | Phone | [...] | | | | | [place], | | | | | | [place] [address] | | | +--------+ + + + [...] | + + | 11/05/2005 10:15 AM [facility] Anesthesia PostOp Report | | | | Patient: MATI SALGUERO Med Rec: [id number] Sex F Bdate: 1965 | | Date/Time Data | | Entered Into [facility] | | Anesth PostOp | | Surgery Date [id number] 11/05/05 10:15 | | Anesthesiologist MICAH NICHOLS 11/05/05 10:15 | | Resident Anesthesiolog ANTONY KIRK 11/05/05 10:15 | | | + + documented in this encounter Visit Diagnoses Not on filedocumented in this encounter"
--- OUTSIDE RECORDS SUMMARY | ~2019-11-08 | XMS | Encounter Summary ---
Demographics + + + | Address | [address] | | | [place] [address] | + + + | Home Phone [...] | | | | | [place] [address] | | + + + + + Care Team Providers + +------+ + | Care Solution Consultant Name | Role | Phone | [...] (poss kidney | | 2007 | | [address] | MD Reinaldo | infection ) | | | | Mailcode: CH10U | | | | | | [facility] | | | | | | and Healing, | | | | | | Building 1, | | | | | | Floor [place], [place] | | | | | | [address] | | | | | | [phone] | | | +--------+ + + + [...]
--- OUTSIDE RECORDS SUMMARY | ~2019-11-08 | XMS | Encounter Summary ---
Demographics + + + | Address | [address] | | | [place] [address] | + + + | Home Phone | | + + + | Preferred Language | Unknown | + + + | Marital Status | | + + + | Holiness Affiliation | Unknown | + + + | Race | Unknown | + + + | Ethnic Group | Unknown | + + + Author + + + | Author | [facility] | | | and [place] | + + + | Organization | [facility] | | | and [...] #3 | | | | | , [address] | | + + + + + Care Team Providers + +------+ + | Care Operation Shift Supervisor Name | Role | Phone | [...] | SR | | | | | [phone] | | | +--------+ + + + [...] | 12/02/ | Office | Gastroenterology | [facility], | | | 2020 | Visit | | CRISTHIAN Carbone [address] | | | | | | [address] | | | | | | [place] | | | | | | [address] | | | | | | | | +--------+---------+ + + + documented as of this encounter Visit Diagnoses Not on filedocumented in this encounter"
--- OUTSIDE RECORDS SUMMARY | ~2019-11-08 | XMS | Encounter Summary ---
Demographics + + + | Address | [address] | | | [place] [address] | + + + | Home Phone [...] | | | | | [place] [address] | | + + + + + Care Team Providers + +------+ + | Care Marble Mason Name | Role | Phone | + +------+ + | Serena Barroso | PCP | | + +------+ + Reason for Visit +--------+ + | Reason | Comments | +--------+ + | Other | Medical records faxed | +--------+ + Encounter Details +--------+ + + + + | Date | Type | Department | Care Team | Description | +--------+ + + + + | 12/19/ | Telephone | Urology Oncology | Kristie, | Other (Medical | | 2008 | | [address] | MD Reinaldo | records faxed) | | | | Mailcode: CH10U | | | | | | [facility] | | | | | | and Healing, | | | | | | Building | | | | | | Floor [place], [place] | | | | | | [address] | | | | | | [phone] | | | +--------+ + + + [...]
--- OUTSIDE RECORDS SUMMARY | ~2019-11-08 | XMS | Encounter Summary ---
Demographics + + + | Address | [address] | | | [place] [address] | + + + | Home Phone [...] + + + | Author | [facility] | + + + | Organization | [facility] | + + + | Address | Unknown | + + + | Phone | Unavailable | + + + Support + + + + + | Name | Relationship | Address | Phone | + + + + + | Darius Fields | HELEN | [address] | | | | | [place] [address] | | + + + + + Care Team Providers + +------+ + | Care Rehab Spec Name | Role | Phone | + +------+ + | Serena Barroso | PCP | | + +------+ + Encounter Details +--------+ + + + + | Date | Type | Department | Care Team | Description | +--------+ + + + + | 06/09/ | Orders Only | Urology Oncology | Kristie, | Hydronephrosis; | | 2006 | | [address] | MD Reinaldo | Hematuria | | | | Mailcode: CH10U | | | | | | [facility] | | | | | | and Healing, | | | | | | Building | | | | | | Floor [place], [place] | | | | | | [address] | | | | | | [phone] | | | +--------+ + + + [...] + + documented in this encounter Results [facility] - COMPLETE METABOLIC SET (06/09/2007 2:28 PM [...] | + + + + + | [facility] | [address] | [place] [address] | | | PATHOLOGY | [address] | | | + + + + + | [facility] | [facility] | [place] [address] | | | PATHOLOGY | [address] [...] | + + + + + | [facility] | [address] [facility] | [place] [address] | | | PATHOLOGY | [address] | | | + + + + + | [facility] | [address] [facility] [address] [facility] | [place] [address] | | | PATHOLOGY | [address] [...] | + + + + + | [facility] | [address] | [place] [address] | | | PATHOLOGY | [address] | | | + + + + + | [facility] | [address] | [place] [address] | | | PATHOLOGY | [address] | | | + + + + + documented in this encounter Visit Diagnoses + + | Diagnosis | + + | Hydronephrosis | + + | Hematuria | + + documented in this encounter"
--- OUTSIDE RECORDS SUMMARY | ~2019-11-08 | XMS | Encounter Summary ---
Demographics + + + | Address | [address] | | | [place] [address] | + + + | Home Phone | | + + + | Preferred Language | Unknown | + + + | Marital Status | | + + + | Mandaeism Affiliation | Unknown | + + + | Race | Unknown | + + + | Ethnic Group | Unknown | + + + Author + + + | Author | [facility] | | | and [place] | + + + | Organization | [facility] | [...] #3 | | | | | , [address] | | + + + + + Care Team Providers + +------+ + | Care Manual Lathe Operator Name | Role | Phone | + +------+ + PCP | Unavailable | + +------+ + Encounter Details +--------+ + + + + | Date | Type | Department | Care Team | Description | +--------+ + + + + | 01/13/ | Hospital | [facility] | | | | 2007 | Encounter | MED CTR EMERGENCY | | | | | | CENTER [address] | | | | | | [place] | | | | | | [address] | | | | | | [phone] | | | +--------+ + + + [...] | 12/02/ | Office | Gastroenterology | [facility], | | | 2020 | Visit | | CRISTHIAN Carbone [address] | | | | | | [address] | | | | | | [place] | | | | | | [address] | | | | | | | | +--------+---------+ + + + documented as of this encounter Visit Diagnoses Not on filedocumented in this encounter"
--- OUTSIDE RECORDS SUMMARY | ~2019-11-08 | XMS | Encounter Summary ---
Demographics + + + | Address | [address] | | | [place] [address] | + + + | Home Phone | | + + + | Preferred Language | Unknown | + + + | Marital Status | Single | + + + | Gnosticism Affiliation | CHR | + + + [...] | | | | | [place] [address] | | + + + + + Care Team Providers + +------+ + | Care Ward Attendant Name | Role | Phone | + [...] [id number] | | | | | | [place], [place] | | | | | | [address] | | | | | | [phone] | | | +--------+ + + + [...]
--- OUTSIDE RECORDS SUMMARY | ~2019-11-08 | XMS | Encounter Summary ---
Demographics + + + | Address | [address] | | | [place] [address] | + + + | Home Phone | | + + + | Preferred Language | Unknown | + + + | Marital Status | Single | + + + | Restoration Affiliation | CHR | + + + | Race | White | + + + | Ethnic Group | Not or | + + + Author + + + | Author | [facility] | + + + | Organization | [facility] | + + + | Address | Unknown | + + + | Phone | Unavailable | + + + Support + + + + + | Name | Relationship | Address | Phone | + + + + + | Darius Fields | HELEN | [address] | | | | | [place] [address] | | + + + + + Care Team Providers + +------+ + | Care Finance Consultant Name | Role | Phone | + +------+ + | Serena Barroso | PCP | | + +------+ + Reason for Visit + + + | Reason | Comments | + + + | Refill Request | Alba at [facility] is calling to get a refill for | | | Samreen on her Macodantin 100mg #31 They had our old fax # and is | | | asking if we can expidite this request. You may reach her at | | | [phone]. Thank you Kandi | + + + Encounter Details +--------+--------+ + + + | Date | Type | Department | Care Team | Description | +--------+--------+ + + + | 08/24/ | Refill | Urology Oncology | Kristie, | Refill Request (Alba | | 2008 | | [address] | MD Reinaldo | at [facility] | | | | Mailcode: CH10U | | Pharmacy is calling | | | | [facility] | | to get a refill for | | | | and Healing, | | Samreen on her | | | | Building | | Macodantin 100mg #31 | | | | Floor [place], [place] | | They had our old | | | | [address] | | fax # and is asking | | | | [phone] | | if we can expidite | | | | | | this request. You | | | | | | may reach her at | | | | | | [phone]. Thank | | | | | | you Kandi) | +--------+--------+ + + + Social History [...]
--- OUTSIDE RECORDS SUMMARY | ~2019-11-08 | XMS | Encounter Summary ---
Demographics + + + | Address | [address] | | | [place] [address] | + + + | Home Phone [...] | | | | | [place] [address] | | + + + + + Care Team Providers + +------+ + | Care Sustainability Engineer Name | Role | Phone | [...] CH10U | | | | | | [facility] | | | | | | and [place], | | | | | | [facility] | | | | | | [place], [place] | | | | | | [address] | | | | | | [phone] | | | +--------+ + + + [...]
--- OUTSIDE RECORDS SUMMARY | ~2019-11-08 | XMS | Encounter Summary ---
Demographics + + + | Address | [address] | | | [place] [address] | + + + | Home Phone | | + + + | Preferred Language | Unknown | + + + | Marital Status | | + + + | Buddhism Affiliation | Unknown | + + + | Race | Unknown | + + + | Ethnic Group | Unknown | + + + Author + + + | Author | [facility] | | | and [place] | + + + | Organization | [facility] | | | [...] #3 | | | | | , [address] | | + + + + + Care Team Providers + +------+ + | Care Toll Line Repairer Name | Role | Phone | [...] | | | | [address] | [facility] | | | 06/26/ | | [place], [place] | [place] [address] | | | 2004 | | [address] | [phone] | | | | | [phone] | | | +--------+ + + + [...] | 12/02/ | Office | Gastroenterology | [facility], | | | 2019 | Visit | | CRISTHIAN Carbone [address] | | | | | | [address] | | | | | | [place] | | | | | | [address] | | | | | | | | +--------+---------+ + + + documented as of this encounter Visit Diagnoses Not on filedocumented in this encounter"
--- OUTSIDE RECORDS SUMMARY | ~2019-11-08 | XMS | Encounter Summary ---
Demographics + + + | Address | [address] | | | [place] [address] | + + + | Home Phone [...] Author + + + | Author | [facility] | + + + | Organization | [facility] | + + + | Address | Unknown | + + + | Phone | Unavailable | + + + Support + + + + + | Name | Relationship | Address | Phone | + + + + + | Darius Fields | HELEN | [address] | | | | | [place] [address] | | + + + + + Care Team Providers + +------+ + | Care Structures Assembler Name | Role | Phone | + [...] CH10U | | | | | | [facility] | | | | | | and [place], | | | | | | [facility] | | | | | | [place], [place] | | | | | | [address] | | | | | | [phone] | | | +--------+ + + + [...]
--- OUTSIDE RECORDS SUMMARY | ~2019-11-08 | XMS | Encounter Summary ---
Demographics + + + | Address | [address] | | | [place] [address] | + + + | Home Phone | | + + + | Preferred Language | Unknown | + + + | Marital Status | | + + + | Restoration Affiliation | Unknown | + + + | Race | Unknown | + + + | Ethnic Group | Unknown | + + + Author + + + | Author | [facility] | | | and [place] | + + + | Organization | [facility] | [...] #3 | | | | | , [address] | | + + + + + Care Team Providers + +------+ + | Care Halfway House Counselor Name | Role | Phone | + +------+ + PCP | Unavailable | + +------+ + Encounter Details +--------+ + + + + | Date | Type | Department | Care Team | Description | +--------+ + + + + | 05/08/ | Hospital | [facility] | | | | 2006 | Encounter | MED CTR LABORATORY | | | | | | [address] | | | | | | [place] | | | | | | [address] | | | | | | [phone] | | | +--------+ + + + [...] | 12/02/ | Office | Gastroenterology | [facility], | | | 2020 | Visit | | [address]RI[address]HIAN Carbone [address] | | | | | | [address] | | | | | | [place] | | | | | | [address] | | | | | | | | +--------+---------+ + + + documented as of this encounter Visit Diagnoses Not on filedocumented in this encounter"
--- OUTSIDE RECORDS SUMMARY | ~2019-11-08 | XMS | Encounter Summary ---
Demographics + + + | Address | [address] | | | [place] [address] | + + + | Home Phone | | + + + | Preferred Language | Unknown | + + + | Marital Status | | + + + | Quaker Affiliation | Unknown | + + + | Race | Unknown | + + + | Ethnic Group | Unknown | + + + Author + + + | Author | [facility] | | | and [place] | + + + | Organization | [facility] | | | and [...] #3 | | | | | , [address] | | + + + + + Care Team Providers + +------+ + | Care Grounds Person Name | Role | Phone | + +------+ + PCP | Unavailable | + +------+ + Encounter Details +--------+ + + + + | Date | Type | Department | Care Team | Description | +--------+ + + + + | 06/03/ | Hospital | [facility] | | | | 2006 | Encounter | MED CTR EMERGENCY | | | | | | CENTER [address] | | | | | | [place] | | | | | | [address] | | | | | | [phone] | | | +--------+ + + + [...] | [facility], | | | 2020 | Visit | | CRISTHIAN Carbone [address] | | | | | | [address] | | | | | | [place] | | | | | | [address] | | | | | | | | +--------+---------+ + + + documented as of this encounter Visit Diagnoses Not on filedocumented in this encounter"
--- OUTSIDE RECORDS SUMMARY | ~2019-11-08 | XMS | Encounter Summary ---
Demographics + + + | Address | [address] | | | [place] [address] | + + + | Home Phone [...] | | | | | [place] [address] | | + + + + + Care Team Providers + +------+ + | Care Dietary Assistant Name | Role | Phone | + +------+ + | Serena Barroso | PCP | | + +------+ + Encounter Details +--------+ + + + + | Date | Type | Department | Care Team | Description | +--------+ + + + + | 11/29/ | Hone Operator | Urology Oncology | Kristie, | | | 2009 | | [address] | MD Reinaldo | | | | | Mailcode: CH10U | | | | | | [facility] | | | | | | and Healing, | | | | | | Building | | | | | | Floor [place], [place] | | | | | | [address] | | | | | | [phone] | | | +--------+ + + + [...]
--- OUTSIDE RECORDS SUMMARY | ~2019-11-08 | XMS | Encounter Summary ---
Demographics + + + | Address | [address] | | | [place] [address] | + + + | Home Phone | | + + + | Preferred Language | Unknown | + + + | Marital Status | | + + + | Buddhism Affiliation | Unknown | + + + | Race | Unknown | + + + | Ethnic Group | Unknown | + + + Author + + + | Author | [facility] | | | and [place] | + + + | Organization | [facility] | | | and [place] | + + + | Address | Unknown | + + + | Phone | Unavailable | + + + Support + + + + + | Name | Relationship | Address | Phone | + + + + + | Darius Fields | ECON | [address] | | | | | , [address] | | + + + + + Care Team Providers + +------+ + | Care Building Dismantler Name | Role | Phone | + [...] + | 04/02/ | Office | [facility] | Toi Gonzalez | Atrophic kidney | | 2018 | Visit | [address] | MD Leighann [address] | (Primary Dx); | | | | [place], [place] | [place], [place] | Microscopic | | | | [address] | [address] | hematuria; Pyuria; | | | | [phone] | | Recurrent UTI | +--------+---------+ + [...] April 09, 2018 at 9:30 AM at [facility]. Please report to [facility] no [...] CBC and BMP. Please go to the [facility] about one week prior to surgery to complete these tests. Call us at [phone] with any questions. [x] Pain management booklet provided to patient. Patient left without being given instructions and getting labs done at [place]. Called cristi maldonado and gave instructions verbally. Faxed lab orders to [facility]. She will g o to [facility] for labs tomorrow. 18 6:16 PM [...] UA, POC Negative Negative, 100 mg/dL Specific [place], UA, POC 1.015 1.001 - 1.030 Blood, [...] on file.. CC: Francine Sanford NP, Karely Imperial Urologist, [place] signed by Anton Gonzalez MD at 04/02/2018 2:34 PM PDTdocumented in this encounter Plan of Treatment +--------+---------+ + + + | Date | Type | Specialty | Care Team | Description | +--------+---------+ + + + | 12/02/ | Office | Gastroenterology | [facility], | | | 2019 | Visit | | CRISTHIAN Carbone [address] | | | | | | [address] | | | | | | [place] | | | | | | [address] | | | | | | | [...] [address] | [place] | [phone] | | [facility] | | [address] | | | - LABORATORY | | [...] [address] | [place] | [phone] | | [facility] | | [address] | | | - LABORATORY | | [...] 1.001 - 1.030 | | | | [place], | | | | | | UA, [...]
--- OUTSIDE RECORDS SUMMARY | ~2019-11-08 | XMS | Encounter Summary ---
Demographics + + + | Address | [address] | | | [place] [address] | + + + | Home Phone | | + + + | Preferred Language | Unknown | + + + | Marital Status | Single | + + + | Adventism Affiliation | CHR | + + + [...] | | | | | [place] [address] | | + + + + + Care Team Providers + +------+ + | Care Perinatology Physician Name | Role | Phone | + [...] [id number] | | | | | | [place], [place] | | | | | | [address] | | | | | | [phone] | | | +--------+ + + + [...]
--- OUTSIDE RECORDS SUMMARY | ~2019-11-08 | XMS | Encounter Summary ---
Demographics + + + | Address | [address] | | | [place] [address] | + + + | Home Phone [...] | | | | | [place] [address] | | + + + + + Care Team Providers + +------+ + | Care Assistant Business Manager Name | Role | Phone | [...] | | | Mailcode: CH10U | Road [place], [place] | | | | | [facility] | [address] | | | | | and Healing, | | | | | | Building | | | | | | Floor [place], [place] | | | | | | [address] | | | | | | [phone] | | | +--------+ + + + [...]
--- OUTSIDE RECORDS SUMMARY | ~2019-11-08 | XMS | Encounter Summary ---
Demographics + + + | Address | [address] | | | [place] [address] | + + + | Home Phone | | + + + | Preferred Language | Unknown | + + + | Marital Status | Single | + + + | Confucianist Affiliation | CHR | + + + [...] | | | | | [place] [address] | | + + + + + Care Team Providers + +------+ + | Care Rn Staffing Name | Role | Phone | + [...] | | | | | | [facility] | | | | | | and Healing, | | | | | | [facility] | | | | | | [place], [place] | | | | | | [address] | | | | | | [phone] | | | +--------+---------+ + + + [...] this encounter Progress Notes Reinaldo Flowers - 06/09/2007 3:41 PM PDTI saw the patient with Dr. Braden Salazar. I was p resent with the resident during the history and physical examination. I agree with the resi dent's assessment and plan as documented in the note. Lacy Flowers M.D. flaring machine operator Section of Urologic Oncology Division of Urology & Renal Transplantation [facility] [place] raden Salazar - 06/09 2:06 PM PDT [...] Salazar MD Urology Resident Lacy Flowers M.D. flaring machine operator Section of Urologic Oncology Division of Urology & Renal Transplantation [facility] [place] heng, Rukhsana - 007 12:05 PM PDTUA [...] + + documented in this encounter Results [facility] - COMPLETE METABOLIC SET (06/09/2007 2:28 PM PDT) + + + + + + | Component | Value | Ref Range | Performed | Pathologist | | | | | At | Signature | + + + + + + | [facility] | 102 (H)Comment: | 60 - 99 [...] | + + + + + | [facility] | [address] | [place] [address] | | | PATHOLOGY | [address] | | | + + + + + | [facility] | [address] | [place] [address] | | | PATHOLOGY | [address] [...] | + + + + + | [facility] | [facility] [facility] | [place] [address] | | | PATHOLOGY | [address] | | | + + + + + | [facility] | [facility] | [place] [address] | | | PATHOLOGY | [address] | | | + + + + + [facility] - CBC AUTODIFF (06/09/2007 2:28 PM PDT) [...] + + + + + | [facility] | [address] | [place] [address] | | | PATHOLOGY | [address] | | | + + + + + | [facility] | [address] | [place] [address] | | | PATHOLOGY | [address] [...] | | + +---------+ + + | [facility] | | | | | [...] [facility] | [address] | [place], [place] | | | [facility] | [facility] | [address] | | | TESTS | | | | + + + + + | [facility] | [address] | [place], [place] | | | TESTS | [facility] | [address] | | + + + + + documented in this encounter Visit Diagnoses + + | Diagnosis | + + | Hematuria | + + | Hydronephrosis | + + documented in this encounter"
--- OUTSIDE RECORDS SUMMARY | ~2019-11-08 | XMS | Encounter Summary ---
Demographics + + + | Address | [address] | | | [place] [address] | + + + | Home Phone | | + + + | Preferred Language | Unknown | + + + | Marital Status | Single | + + + | Yarsanism Affiliation | CHR | + + + [...] | | | | | [place] [address] | | + + + + + Care Team Providers + +------+ + | Care Import Coordination And Production Head Name | Role | Phone | + +------+ + | Serena Barroso | PCP | | + +------+ + Reason for Visit + + + | Reason | Comments | + + + | Refill Request | Alba at [facility] is calling to get a refill for | | | Samreen on her Macodantin 100mg #31 They had our old fax # and is | | | asking if we can expidite this request. You may reach her at | | | [phone]. Thank you Kandi | + + + Encounter Details +--------+--------+ + + + | Date | Type | Department | Care Team | Description | +--------+--------+ + + + | 08/24/ | Refill | Urology Oncology | Kristie, | Refill Request (Alba | | 2008 | | [address] | MD Reinaldo | at [facility] | | | | Mailcode: CH10U | | Pharmacy is calling | | | | [facility] | | to get a refill for | | | | and Healing, | | Samreen on her | | | | Building | | Macodantin 100mg #31 | | | | Floor [place], [place] | | They had our old | | | | [address] | | fax # and is asking | | | | [phone] | | if we can expidite | | | | | | this request. You | | | | | | may reach her at | | | | | | [phone]. Thank | | | | | | [...]
--- OUTSIDE RECORDS SUMMARY | ~2019-11-08 | XMS | Encounter Summary ---
Demographics + + + | Address | [address] | | | [place] [address] | + + + | Home Phone | | + + + | Preferred Language | Unknown | + + + | Marital Status | | + + + | Yazidi Affiliation | Unknown | + + + | Race | Unknown | + + + | Ethnic Group | Unknown | + + + Author + + + | Author | [facility] | | | and [place] | + + + | Organization | [facility] | | | and [...] #3 | | | | | , [address] | | + + + + + Care Team Providers + +------+ + | Care Sped Teacher Name | Role | Phone | + +------+ + PCP | Unavailable | + +------+ + Encounter Details +--------+ + + + + | Date | Type | Department | Care Team | Description | +--------+ + + + + | 01/14/ | Hospital | [facility] | | | | 2007 - | Encounter | MED CTR EMERGENCY | | | | | | [address] | | | | 01/24/ | | [place] | | | | 2007 | | [address] | | | | | | [phone] | | | +--------+ + + + [...] | 12/02/ | Office | Gastroenterology | [facility], | | | 2020 | Visit | | CRISTHIAN Carbone [address] | | | | | | [address] | | | | | | [place] | | | | | | [address] | | | | | | | | +--------+---------+ + + + documented as of this encounter Visit Diagnoses Not on filedocumented in this encounter"
--- OUTSIDE RECORDS SUMMARY | ~2019-11-08 | XMS | Encounter Summary ---
Demographics + + + | Address | [address] | | | [place] [address] | + + + | Home Phone [...] | Organization | [facility] | | [...] #3 | | | | | , [address] | | + + + + + Care Team Providers + +------+ + | Care Rn Manager Name | Role | Phone | + +------+ + PCP | Unavailable | + +------+ + Encounter Details +--------+ + + + + | Date | Type | Department | Care Team | Description | +--------+ + + + + | 10/18/ | [facility] | [facility] | Martine Mcdermott | | | 2006 | Encounter | MED CTR EMERGENCY | MD [address] | | | | | CENTER [address] | [facility], | | | | | [place], [place] | [place] [address] | | | | | [address] | [phone] | | | | | [phone] | | | +--------+ + + + [...] | 12/02/ | Office | Gastroenterology | [facility], | | | 2019 | Visit | | CRI[address]HIAN Carbone [address] | | | | | | [address] | | | | | | [place] | | | | | | [address] | | | | | | | | +--------+---------+ + + + documented as of this encounter Visit Diagnoses Not on filedocumented in this encounter"
--- OUTSIDE RECORDS SUMMARY | ~2019-11-08 | XMS | Encounter Summary ---
Demographics + + + | Address | [address] | | | [place] [address] | + + + | Home Phone | | + + + | Preferred Language | Unknown | + + + | Marital Status | Single | + + + | Mandaen Affiliation | CHR | + + + [...] | | | | | [place] [address] | | + + + + + Care Team Providers + +------+ + | Care Lean Manufacturing Coordinator Name | Role | Phone | [...] | | | | | | Floor [place], [place] | | | | | | [address] | | | | | | [phone] | | | +--------+ + + + [...]
--- OUTSIDE RECORDS SUMMARY | ~2019-11-08 | XMS | Encounter Summary ---
Demographics + + + | Address | [address] | | | [place] [address] | + + + | Home Phone [...] | [facility] | | | and [...] #3 | | | | | , [address] | | + + + + + Care Team Providers + +------+ + | Care Press Machine Feeder Name | Role | Phone | + [...] | | (terminal) | [place] | [place], | | | | | Disorder of | [place], | [place] [address] | | | | | kidney and | [place] | Phone: | | | | | ureter, | [address] | [phone] | | | | | unspecified | Phone: | Fax: | | | | | | [phone] | [phone] | | | | | | Fax: | | | | | | | [phone] | | +--------+--------+ + + + + [...] | hematuria (Primary | | | | [place], [place] | [place], [place] | Dx); Pyuria | | | | [address] | [address] | | | | | [phone] | | | +--------+---------+ + + + [...] UA, POC Negative Negative, 100 mg/dL Specific [place], UA, POC 1.015 1.001 - 1.030 Blood, [...] CC: Francine Sanford NP, Karely Blue Urologist, [place], [facility] signed by Anton Gonzalez MD at 01/23/2018 1:32 PM PDTdocumented in this encounter Plan of Treatment +--------+---------+ + + + | Date | Type | Specialty | Care Team | Description | +--------+---------+ + + + | 12/02/ | Office | Gastroenterology | [facility], | | | 2020 | Visit | | CRISTHIAN Carbone [address] | | | | | | [address] | | | | | | [place] | | | | | | [address] | | | | | | | [...] [address] | [place] | [phone] | | [facility] | | [address] | | | - LABORATORY | | [...] [address] | [place] | [phone] | | [facility] | | [address] | | | - LABORATORY | | [...] 1.001 - 1.030 | | | | [place], | | | | | | UA, [...]
--- OUTSIDE RECORDS SUMMARY | ~2019-11-08 | XMS | Encounter Summary ---
Demographics + + + | Address | [address] | | | [place] [address] | + + + | Home Phone | | + + + | Preferred Language | Unknown | + + + | Marital Status | | + + + | Nondenominational Affiliation | Unknown | + + + | Race | Unknown | + + + | Ethnic Group | Unknown | + + + Author + + + | Author | [facility] | | | and [place] | + + + | Organization | [facility] | | | and [place] | + + + | Address | Unknown | + + + | Phone | Unavailable | + + + Support + + + + + | Name | Relationship | Address | Phone | + + + + + | Darius Diamond [address] | [address] | | | | | , [address] | | + + + + + Care Team Providers + +------+ + | Care Training And Development Assistant Name | Role | Phone | [...] [address] | | | | | [place], [place] | [place], [place] | | | | | [address] | [address] | | | | | [phone] | | | +--------+ + + + [...] | 12/02/ | Office | Gastroenterology | [facility], | | | 2020 | Visit | | CRISTHIAN Carbone [address] | | | | | | [address] | | | | | | [place] | | | | | | [address] | | | | | | | | +--------+---------+ + + + documented as of this encounter Visit Diagnoses Not on filedocumented in this encounter"
--- OUTSIDE RECORDS SUMMARY | ~2019-11-08 | XMS | Encounter Summary ---
Demographics + + + | Address | [address] | | | [place] [address] | + + + | Home Phone | | + + + | Preferred Language | Unknown | + + + | Marital Status | Single | + + + | Scientology Affiliation | CHR | + + + [...] | | | | | [place] [address] | | + + + + + Care Team Providers + +------+ + | Care System Integration Engineer Name | Role | Phone | [...] | | | | | | Floor [place], [place] | | | | | | [address] | | | | | | [phone] | | | +--------+---------+ + + + [...] stent removal performed today. Lacy Flowers M.D. operations vocational instructor Section of Urologic Oncology Division of Urology & Renal Transplantation [facility] etty Villalobos - 2006 4:53 PM [...] for a urologist near her home in [place]. - Return to Clinic in 4 months for pouchogram. Letty Villalobos [facility] Lacy Flowers M.D. operations vocational instructor Section of Urologic Oncology Division of Urology & Renal Transplantation [facility] [place] Adelaida Bansal - 4:04 PM PDTUA done [...] + +--------+ + + + | MD DIL | Routin | 07/30/2007 | Hydronephrosis | Results for this | | URETHRA,FEMALE,SUBSE | e | | | procedure are in the | | QUENT | | | | results section. | + +--------+ + + + | MD CYSTOSCOPY,REMV | Routin | 07/30/2007 | Hydronephrosis | Results for this | | CALCULUS,SIMPLE | e | | | procedure are in the | | | | | | results section. | + +--------+ + + + documented in this encounter Results MD DIL URETHRA,FEMALE,SUBSEQUENT (07/30/2007) + + + | [...] this procedure. | | | A female outboard system operator was present in the procedure room during the | | | entire procedure. | | + + + + + + + + | Performing | Address | City/State/Zipcode | Phone Number | | Organization | | | | + + + + + | [facility] | [address] | [place], [place] | | | [place], POINT OF CARE | [address] | [address] | | | TESTS | | | | + + + + + | [facility] | [address] | [place], [place] | | | TESTS | [address] | [address] | | + + + + + MD CYSTOSCOPY,REMV CALCULUS,SIMPLE (07/30/2007) + + + | [...] The procedure was tolerated well. A female outboard system operator was present | | | in the procedure room during the entire procedure. | | + + + + + + + + | Performing | Address | City/State/Zipcode | Phone Number | | Organization | | | | + + + + + | [facility] | [address] | [place], [place] | | | [place], POINT OF CARE | [address] | [address] | | | TESTS | | | | + + + + + | [facility] | [address] | [place], [place] | | | TESTS | [address] | [address] | | + + + + + [...] [facility] | [address] | [place], [place] | | | HECTOR POINT OF CARE | [address] | [address] | | | TESTS | | | | + + + + + | [facility] | [address] | [place], [place] | | | TESTS | [facility] | [address] | | + + + + + documented in this encounter Visit Diagnoses + + | Diagnosis | + + | Hydronephrosis - Primary | + + documented in this encounter
--- OUTSIDE RECORDS SUMMARY | ~2019-11-08 | XMS | Encounter Summary ---
Demographics + + + | Address | [address] | | | [place] [address] | + + + | Home Phone | | + + + | Preferred Language | Unknown | + + + | Marital Status | Single | + + + | Congregation Affiliation | CHR | + + + [...] | | | | | [place] [address] | | + + + + + Care Team Providers + +------+ + | Care Physician Advisor Name | Role | Phone | [...] [address] | | | | | | [place], [place] | | | | | | [address] | | | | | | [phone] | | | +--------+ + + + [...] sto mal dilation today. Lacy Flowers M.D. inbound sales advisor Section of Urologic Oncology Division of Urology & Renal Transplantation [facility] Chance Morales Md - 06/26 2:16 PM [...] Will have patient switch to 1 4F Clayton catheter and use lubrication PLAN: - Swtich from 16F LoFric to 14F Clayton catheter - Advised to use lubrication - Patient to follow-up with Dr. Lyons. documented in this enc ounter Plan of Treatment Not on filedocumented as of this encounter Procedures + +--------+ + + + | Procedure Name | Priori | Date/Time | Associated Diagnosis | Comments | | | ty | | | | + +--------+ + + + | GA DIL | Routin | 06/26/2006 | Bladder Extrophy | Results for this | | URETHRA,FEMALE,INITI | e | | | procedure are in the | | [place] | | | | results section. | + +--------+ + + + documented in this encounter Results GA DIL URETHRA,FEMALE,INITIAL (06/26/2006) + + + | Narrative | Performed At | + + + | Continent catheterizable stoma dilated to 18F using Clayton | [facility] | | Catheters. | CARE TESTS | + + + + + + + + | Performing | Address | City/State/Zipcode | Phone Number | | Organization | | | | + + + + + | [facility] | [address] | [place], [place] | | | HECTOR POINT OF CARE | [address] | [address] | | | TESTS | | | | + + + + + | [facility] | 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
--- OUTSIDE RECORDS SUMMARY | ~2019-11-08 | XMS | Encounter Summary ---
Demographics + + + | Address | [address] | | | [place] [address] | + + + | Home Phone | | + + + | Preferred Language | Unknown | + + + | Marital Status | Single | + + + | Caodaism Affiliation | CHR | + + + [...] | | | | | [place] [address] | | + + + + + Care Team Providers + +------+ + | Care Rn Plasma Center Name | Role | Phone | + [...] as of this encounter Progress Notes Interface, Store Warehouse Associate In - 09/19/2005 5:03 AM PST [id number] [facility] Date: 08/13/2005 Clinic: Urologic Oncology Clinic History: Ms. Zaragoza is a 40-year-old woman who was born with bladder exstrophy in 1964. 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 Ley. She is [...] evidence of mesh around the stoma. Impression: Edwards pouch, with recent development of incontinence and difficulty catheterizing even in the absence of an infection or inflammation. Plan: After discussion of the options with Ms. Zaragoza, she is most interested in having the pouch revised so that she can continue with continent catheterization. We discussed different options for revision of the pouch including conversion to an Flathead pouch or the possible use of the appendix if present as part of the continence mechanism. She will be scheduled for preadmission the day before planned pouch revision, which will be most likely in approximately 1 to 2 months. Please note that this patient was also seen and examined by Dr. Reinaldo Flowers. Arnie Stoddard M.D. Reinaldo Flowers M.D. [facility] / PRAVIN [id number] / [id number] / [id number] / [id number] cc: Rona Lyons M.D. [address] [place] [address] Electronically signed by Reinaldo Flowers 09-18-2005 08:25:12 PM documented i n this encounter Plan of Treatment Not on filedocumented as of this encounter Visit Diagnoses Not on filedocumented in this encounter"
--- OUTSIDE RECORDS SUMMARY | ~2019-11-08 | XMS | Encounter Summary ---
Demographics + + + | Address | [address] | | | [place] [address] | + + + | Home Phone [...] | | | | | [place] [address] | | + + + + + Care Team Providers + +------+ + | Care Germ Drier Name | Role | Phone | + [...] | Artificial Opening | | | | [facility] | | of Urinary Tract | | | | and Healing, | | | | | | [address], | | | | | | Floor [place], [place] | | | | | | [address] | | | | | | [phone] | | | +--------+---------+ + + + [...] the cystogram performed today. Lacy Flowers M.D. legal aid Section of Urologic Oncology Division of Urology & Renal Transplantation [facility] Dilma Holm Md - 08/18/2008 1:51 [...] MD. DILMA GRIGSBY MD UROLOGY ONCOLOGY [address] [facility] [place] [address] documented in this enc ounter Plan of Treatment Not on filedocumented as of this encounter Visit Diagnoses + + | Diagnosis | + + | Bladder extrophy Exstrophy of urinary bladder | + + | Status of other artificial opening of urinary tract | + + documented in this encounter
--- OUTSIDE RECORDS SUMMARY | ~2019-11-08 | XMS | Encounter Summary ---
Demographics + + + | Address | [address] | | | [place] [address] | + + + | Home Phone [...] + + + | Author | [facility] | + + + | Organization | [facility] | + + + | Address | Unknown | + + + | Phone | Unavailable | + + + Support + + + + + | Name | Relationship | Address | Phone | + + + + + | Darius Fields | HELEN | [address] | | | | | [place] [address] | | + + + + + Care Team Providers + +------+ + | Care Steward/Stewardess Smoke Room Name | Role | Phone | + [...] [id number] | | | | | | [place], [place] | | | | | | [address] | | | | | | [phone] | | | +--------+ + + + [...] | + + + + + | [facility] | [address] | [place] [address] | | | PATHOLOGY | [address] | | | + + + + + | [facility] | [address] | [place] [address] | | | PATHOLOGY | [address] | | | + + + + + MAGNESIUM, PLASMA (11/23/2005 6:20 AM PST) + +-------+ + + + | Component | Value | Ref Range | Performed | Pathologist | | | | | At | Signature | + +-------+ + + + | MAGNESIUM,P | 1.9 | 1.8 - 2.5 mg/dL | [facility] | | | LASMA | | | [...] | + + + + + | [facility] DEPARTMENT OF | [address] | [place] [address] | | | PATHOLOGY | [address] | | | + + + + + | [facility] DEPARTMENT OF | [address] | [place] [address] | | | PATHOLOGY | [address] [...] + + | [facility] DEPARTMENT OF | [address] | [place], [place] [address] | | | PATHOLOGY | [address] | | | + + + + + | [facility] DEPARTMENT OF | [address] | [place] [address] | | | PATHOLOGY | [address] [...] | + + + + + | [facility] DEPARTMENT OF | [address] | [place] [address] | | | PATHOLOGY | [address] | | | + + + + + | [facility] DEPARTMENT OF | [address] | [place] [address] | | | PATHOLOGY | [address] [...] cmnt | 1.8 - 2.5 mg/dL | [facility] | | | LASMA | | | [...] | + + + + + | [facility] DEPARTMENT OF | [address] | [place] [address] | | | PATHOLOGY | [address] | | | + + + + + | [facility] DEPARTMENT OF | [address] | [place] [address] | | | PATHOLOGY | [address] [...] cmnt | 2.4 - 4.7 mg/dL | [facility] | | | PLASMA | | | [...] DEPARTMENT OF | [address] | [place] [address] | | | PATHOLOGY | [address] | | | + + + + + | [facility] DEPARTMENT OF | [address] | [place] [address] | | | PATHOLOGY | [address] [...] | + + + + + | [facility] | [address] | [place] [address] | | | PATHOLOGY | [address] | | | + + + + + | [facility] | [address] [place] [address] [address] | [place] [address] | | | PATHOLOGY | [address] [...] | + + + + + | [facility] | [address] | [place] [address] | | | PATHOLOGY | [address] | | | + + + + + | [facility] | [address] | [place] [address] | | | PATHOLOGY | [address] [...] | + + + + + | [facility] | [address] | [place] [address] | | | PATHOLOGY | [address] | | | + + + + + | [facility] | [address] [place] [address] | [place] [address] | | | PATHOLOGY | [address] [...] | + + + + + | [facility] DEPARTMENT OF | [address] | [place] [address] | | | PATHOLOGY | [address] | | | + + + + + | [facility] DEPARTMENT OF | [facility] | [place] [address] | | | PATHOLOGY | [address] [...] DEPARTMENT OF | [address] | [place] [address] | | | PATHOLOGY | [address] | | | + + + + + | [facility] DEPARTMENT OF | [address] | [place] [address] | | | PATHOLOGY | [address] [...] | + + + + + | [facility] DEPARTMENT OF | [address] | [place] [address] | | | PATHOLOGY | [address] | | | + + + + + | [facility] DEPARTMENT OF | [address] | [place] [address] | | | PATHOLOGY | [address] [...] | + + + + + | [facility] DEPARTMENT OF | [address] | [place] [address] | | | PATHOLOGY | [address] | | | + + + + + | [facility] DEPARTMENT OF | [address] | [place] [address] | | | PATHOLOGY | [address] [...] | + + + + + | [facility] | [address] | [place] [address] | | | PATHOLOGY | [address] | | | + + + + + | [facility] | [facility] | [place] [address] | | | PATHOLOGY | [address] | | | + + + + + MAGNESIUM, PLASMA (11/20/2005 6:40 AM PST) + +-------+ + + + | Component | Value | Ref Range | Performed | Pathologist | | | | | At | Signature | + +-------+ + + + | MAGNESIUM,P | 1.9 | 1.8 - 2.5 mg/dL | [facility] | | | LASMA | | | [...] | + + + + + | [facility] DEPARTMENT OF | [address] | [place] [address] | | | PATHOLOGY | [address] | | | + + + + + | [facility] DEPARTMENT OF | [address] | [place] [address] | | | PATHOLOGY | [address] [...] DEPARTMENT OF | [address] | [place] [address] | | | PATHOLOGY | [address] | | | + + + + + | [facility] DEPARTMENT OF | [address] | [place] [address] | | | PATHOLOGY | [address] [...] DEPARTMENT OF | [address] | [place] [address] | | | PATHOLOGY | [address] | | | + + + + + | [facility] DEPARTMENT OF | [address] | [place] [address] | | | PATHOLOGY | [address] [...] | + + + + + | [facility] | [address] | [place] [address] | | | PATHOLOGY | [address] | | | + + + + + | [facility] | [address] | [place] [address] | | | PATHOLOGY | [address] [...] | + + + + + | [facility] | [address] | [place] [address] | | | PATHOLOGY | [address] | | | + + + + + | [facility] | [address] | [place] [address] | | | PATHOLOGY | [address] [...] by | | | | | | [facility] | | | | | | [facility]. | | | | + + + + + + + + | Specimen | + + | | + + + + + + + | Performing | Address | City/State/Zipcode | Phone Number | | Organization | | | | + + + + + | [facility] | [address] | [place] [address] | | | LABORATORY | | | [...] | + + + + + | [facility] DEPARTMENT OF | [address] | [place] [address] | | | PATHOLOGY | [address] | | | + + + + + | [facility] DEPARTMENT OF | [address] | [place] [address] | | | PATHOLOGY | [address] [...] | + + + + + | [facility] DEPARTMENT OF | [address] | [place] [address] | | | PATHOLOGY | [address] | | | + + + + + | [facility] DEPARTMENT | [address] | [place] [address] | | | PATHOLOGY | [address] | | | + + + + + MAGNESIUM, PLASMA (11/18/2005 6:00 AM PST) + +-------+ + + + | Component | Value | Ref Range | Performed | Pathologist | | | | | At | Signature | + +-------+ + + + | MAGNESIUM,P | 2.1 | 1.8 - 2.5 mg/dL | [facility] | | | LASMA | | | [...] | + + + + + | [facility] | [address] | [place] [address] | | | PATHOLOGY | [address] | | | + + + + + | [facility] | [address] [place] [address] | [place] [address] | | | PATHOLOGY | [address] [...] DEPARTMENT OF | [address] | [place] [address] | | | PATHOLOGY | [address] | | | + + + + + | [facility] DEPARTMENT OF | [address] | [place] [address] | | | PATHOLOGY | [address] [...] | + + + + + | [facility] DEPARTMENT OF | [address] | [place] [address] | | | PATHOLOGY | [address] | | | + + + + + | [facility] DEPARTMENT OF | [facility] | [place] [address] | | | PATHOLOGY | [address] [...] | + + + + + | [facility] DEPARTMENT OF | [address] | [place] [address] | | | PATHOLOGY | [address] | | | + + + + + | [facility] DEPARTMENT OF | [address] | [place] [address] | | | PATHOLOGY | [address] [...] | + + + + + | [facility] | [address] | [place] [address] | | | PATHOLOGY | [address] | | | + + + + + | [facility] | [address] | [place] [address] | | | PATHOLOGY | [address] | | | + + + + + PHOSPHORUS, PLASMA (11/15/2005 5:45 AM PST) + +-------+ + + + | Component | Value | Ref Range | Performed | Pathologist | | | | | At | Signature | + +-------+ + + + | PHOSPHORUS, | 3.5 | 2.4 - 4.7 mg/dL | [facility] | | | PLASMA | | | [...] | + + + + + | [facility] DEPARTMENT OF | [address] | [place] [address] | | | PATHOLOGY | [address] | | | + + + + + | [facility] DEPARTMENT OF | [address] | [place] [address] | | | PATHOLOGY | [address] [...] DEPARTMENT OF | [address] | [place] [address] | | | PATHOLOGY | [address] | | | + + + + + | [facility] | [address] | [place] [address] | | | PATHOLOGY | [address] [...] | [address] | [place] [address] | | | PATHOLOGY | [address] | | | + + + + + | [facility] DEPARTMENT OF | [address] | [place] [address] | | | PATHOLOGY | [address] [...] | + + + + + | [facility] | [address] | [place] [address] | | | PATHOLOGY | [address] | | | + + + + + | [facility] | [address] | [place] [address] | | | PATHOLOGY | [address] [...] | + + + + + | [facility] | [address] | [place] [address] | | | PATHOLOGY | [address] | | | + + + + + | [facility] | [address] | [place] [address] | | | PATHOLOGY | [address] [...] + | [facility] DEPARTMENT OF | [address] | [place] [address] | | | PATHOLOGY | [address] | | | + + + + + | [facility] DEPARTMENT OF | [address] | [place] [address] | | | PATHOLOGY | [address] | | | + + + + + MAGNESIUM, PLASMA (11/13/2005 4:15 AM PST) + +-------+ + + + | Component | Value | Ref Range | Performed | Pathologist | | | | | At | Signature | + +-------+ + + + | MAGNESIUM,P | 2.2 | 1.8 - 2.5 mg/dL | [facility] | | | LASMA | | | [...] | + + + + + | [facility] | [address] | [place] [address] | | | PATHOLOGY | [address] | | | + + + + + | [facility] | [address] | [place] [address] | | | PATHOLOGY | [address] [...] DEPARTMENT OF | [address] | [place] [address] | | | PATHOLOGY | [address] | | | + + + + + | [facility] DEPARTMENT OF | [address] | [place] [address] | | | PATHOLOGY | [address] [...] | + + + + + | [facility] DEPARTMENT OF | [address] | [place] [address] | | | PATHOLOGY | [address] | | | + + + + + | [facility] DEPARTMENT OF | [address] | [place] [address] | | | PATHOLOGY | [address] [...] + + | [facility] DEPARTMENT OF | [address] | [place], [place] [address] | | | PATHOLOGY | [address] | | | + + + + + | [facility] DEPARTMENT OF | [address] | [place] [address] | | | PATHOLOGY | [address] [...] DEPARTMENT OF | [address] | [place] [address] | | | PATHOLOGY | [address] | | | + + + + + | [facility] DEPARTMENT | [address] | [place] [address] | | | PATHOLOGY | [address] [...] | + + + + + | [facility] | [address] | [place] [address] | | | PATHOLOGY | [address] | | | + + + + + | [facility] | [address] [place] [address] | [place] [address] | | | PATHOLOGY | [address] [...] | + + + + + | [facility] DEPARTMENT OF | [facility] | [place] [address] | | | PATHOLOGY | [address] | | | + + + + + | [facility] DEPARTMENT OF | [address] | [place] [address] | | | PATHOLOGY | [address] [...] by | | | | | | [facility] | | | | | | [facility]. | | | | + + + + + + + + | Specimen | + + | | + + + + + + + | Performing | Address | City/State/Zipcode | Phone Number | | Organization | | | | + + + + + | [facility] | [address] | [place] [address] | | | LABORATORY | | | [...] | + + + + + | [facility] DEPARTMENT OF | [address] | [place] [address] | | | PATHOLOGY | [address] | | | + + + + + | [facility] DEPARTMENT OF | [address] | [place] [address] | | | PATHOLOGY | [address] | | | + + + + + PHOSPHORUS, PLASMA (11/11/2005 6:30 AM PST) + +---------+ + + + | Component | Value | Ref Range | Performed | Pathologist | | | | | At | Signature | + +---------+ + + + | PHOSPHORUS, | 2.1 (L) | 2.4 - 4.7 mg/dL | [facility] | | | PLASMA | | | [...] | + + + + + | [facility] DEPARTMENT OF | [address] | [place] [address] | | | PATHOLOGY | [address] | | | + + + + + | [facility] DEPARTMENT OF | [address] | [place] [address] | | | PATHOLOGY | [address] [...] | + + + + + | [facility] | [address] | [place] [address] | | | PATHOLOGY | [address] | | | + + + + + | [facility] | [address] [place] [address] | [place] [address] | | | PATHOLOGY | [address] | | | + + + + + MAGNESIUM, PLASMA (11/11/2005 6:30 AM PST) + +-------+ + + + | Component | Value | Ref Range | Performed | Pathologist | | | | | At | Signature | + +-------+ + + + | MAGNESIUM,P | 2.1 | 1.8 - 2.5 mg/dL | [facility] | | | LASMA | | | [...] | + + + + + | [facility] DEPARTMENT OF | [address] | [place] [address] | | | PATHOLOGY | [address] | | | + + + + + | [facility] DEPARTMENT OF | [address] | [place] [address] | | | PATHOLOGY | [address] [...] | + + + + + | [facility] | [address] | [place] [address] | | | PATHOLOGY | [address] | | | + + + + + | [facility] | [address] [place] [address] [address] | [place] [address] | | | PATHOLOGY | [address] [...] DEPARTMENT OF | [address] | [place] [address] | | | PATHOLOGY | [address] | | | + + + + + | [facility] DEPARTMENT OF | [address] | [place] [address] | | | PATHOLOGY | [address] [...] | + + + + + | [facility] DEPARTMENT OF | [address] | [place] [address] | | | PATHOLOGY | [address] | | | + + + + + | [facility] DEPARTMENT OF | [address] | [place] [address] | | | PATHOLOGY | [address] [...] DEPARTMENT OF | [address] | [place] [address] | | | PATHOLOGY | [address] | | | + + + + + | [facility] DEPARTMENT OF | [address] | [place] [address] | | | PATHOLOGY | [address] [...] | + + + + + | [facility] | [address] | [place] [address] | | | PATHOLOGY | [address] | | | + + + + + | [facility] | [address] | [place] [address] | | | PATHOLOGY | [address] [...] | + + + + + | [facility] | [address] | [place] [address] | | | PATHOLOGY | [address] | | | + + + + + | [facility] | [address] [address] | [place] [address] | | | PATHOLOGY | [address] | | | + + + [...] the | | | | | | [id number] body. | | | | | | [...] | | + +---------+ + + | [facility] DEPARTMENT OF | | | [...] | + + + + + | [facility] DEPARTMENT OF | [address] | [place] [address] | | | PATHOLOGY | [address] | | | + + + + + | [facility] DEPARTMENT OF | [address] | [place] [address] | | | PATHOLOGY | [address] [...] DEPARTMENT OF | [address] | [place] [address] | | | PATHOLOGY | [address] | | | + + + + + | [facility] DEPARTMENT OF | [address] | [place] [address] | | | PATHOLOGY | [address] | | | + + + + + MAGNESIUM, PLASMA (11/08/2005 6:15 AM PST) + +-------+ + + + | Component | Value | Ref Range | Performed | Pathologist | | | | | At | Signature | + +-------+ + + + | MAGNESIUM,P | 2.1 | 1.8 - 2.5 mg/dL | [facility] | | | LASMA | | | [...] | + + + + + | [facility] DEPARTMENT OF | [address] | [place] [address] | | | PATHOLOGY | [address] | | | + + + + + | [facility] DEPARTMENT OF | [address] | [place] [address] | | | PATHOLOGY | [address] [...] + | [facility] DEPARTMENT OF | [address] | [place] [address] | | | PATHOLOGY | [address] | | | + + + + + | [facility] DEPARTMENT OF | [address] | [place] [address] | | | PATHOLOGY | [address] [...] | + + + + + | [facility] DEPARTMENT OF | [address] | [place] [address] | | | PATHOLOGY | [address] | | | + + + + + | [facility] DEPARTMENT OF | [address] | [place] [address] | | | PATHOLOGY | [address] [...] DEPARTMENT OF | [address] | [place] [address] | | | PATHOLOGY | [address] | | | + + + + + | [facility] | [address] | [place] [address] | | | PATHOLOGY | [address] [...] | | + +---------+ + + | [facility] DEPARTMENT OF | | | [...] DEPARTMENT OF | [address] | [place] [address] | | | PATHOLOGY | [address] | | | + + + + + | [facility] DEPARTMENT OF | [address] | [place] [address] | | | PATHOLOGY | [address] [...] | + + + + + | [facility] DEPARTMENT OF | [address] | [place] [address] | | | PATHOLOGY | [address] | | | + + + + + | [facility] DEPARTMENT OF | [address] | [place] [address] | | | PATHOLOGY | [address] | | | + + + + + MAGNESIUM, PLASMA (11/07/2005 6:20 AM PST) + +---------+ + + + | Component | Value | Ref Range | Performed | Pathologist | | | | | At | Signature | + +---------+ + + + | MAGNESIUM,P | 1.6 (L) | 1.8 - 2.5 mg/dL | [facility] | | | LASMA | | | [...] | + + + + + | [facility] | [address] | [place] [address] | | | PATHOLOGY | [address] | | | + + + + + | [facility] DEPARTMENT | [address] | [place] [address] | | | PATHOLOGY | [address] [...] | + + + + + | [facility] DEPARTMENT OF | [address] | [place] [address] | | | PATHOLOGY | [address] | | | + + + + + | [facility] DEPARTMENT OF | [address] | [place] [address] | | | PATHOLOGY | [address] [...] | + + + + + | [facility] | [address] | [place] [address] | | | PATHOLOGY | [address] | | | + + + + + | [facility] | [address] | [place] [address] | | | PATHOLOGY | [address] | | | + + + + + PHOSPHORUS, PLASMA (11/06/2005 6:40 AM PST) + +---------+ + + + | Component | Value | Ref Range | Performed | Pathologist | | | | | At | Signature | + +---------+ + + + | PHOSPHORUS, | 2.3 (L) | 2.4 - 4.7 mg/dL | [facility] | | | PLASMA | | | [...] | + + + + + | [facility] DEPARTMENT OF | [address] | [place] [address] | | | PATHOLOGY | [address] | | | + + + + + | [facility] DEPARTMENT OF | [address] | [place] [address] | | | PATHOLOGY | [address] [...] DEPARTMENT OF | [address] | [place] [address] | | | PATHOLOGY | [address] | | | + + + + + | [facility] DEPARTMENT OF | [address] | [place] [address] | | | PATHOLOGY | [address] [...] | + + + + + | [facility] DEPARTMENT OF | [address] | [place] [address] | | | PATHOLOGY | [address] | | | + + + + + | [facility] DEPARTMENT OF | [address] | [place] [address] | | | PATHOLOGY | [address] [...] | + + + + + | [facility] DEPARTMENT | [address] | [place] [address] | | | PATHOLOGY | [address] | | | + + + + + | [facility] | [address] | [place] [address] | | | PATHOLOGY | [address] [...] | + + + + + | [facility] DEPARTMENT OF | [address] | [place] [address] | | | PATHOLOGY | [address] | | | + + + + + | [facility] | [facility] | [place] [address] | | | PATHOLOGY | [address] [...] + + | [facility] DEPARTMENT OF | [address] | [place] [address] | | | PATHOLOGY | [address] | | | + + + + + | [facility] DEPARTMENT OF | [address] | [place] [address] | | | PATHOLOGY | [address] [...] | + + + + + | [facility] DEPARTMENT | [address] | [place] [address] | | | PATHOLOGY | [address] | | | + + + + + | [facility] | [address] | [place] [address] | | | PATHOLOGY | [address] [...] | + + + + + | [facility] DEPARTMENT OF | [address] | [place] [address] | | | PATHOLOGY | [address] | | | + + + + + | [facility] DEPARTMENT OF | [address] | [place] [address] | | | PATHOLOGY | [address] | | | + + + + + MAGNESIUM, PLASMA (11/05/2005 6:35 AM PST) + +-------+ + + + | Component | Value | Ref Range | Performed | Pathologist | | | | | At | Signature | + +-------+ + + + | MAGNESIUM,P | 2.1 | 1.8 - 2.5 mg/dL | [facility] | | | [address] | | [...] | + + + + + | [facility] DEPARTMENT OF | [address] | [place] [address] | | | PATHOLOGY | [address] | | | + + + + + | [facility] DEPARTMENT OF | [address] [address] [address] | [place] [address] | | | PATHOLOGY | [address] [...] | + + + + + | [facility] | [address] | [place] [address] | | | PATHOLOGY | [address] | | | + + + + + | [facility] | [address] | [place] [address] | | | PATHOLOGY | [address] [...] | + + + + + | [facility] DEPARTMENT OF | [address] | [place] [address] | | | PATHOLOGY | [address] | | | + + + + + | [facility] DEPARTMENT OF | [address] | [place] [address] | | | PATHOLOGY | [address] [...] | + + + + + | [facility] DEPARTMENT OF | [address] | [place] [address] | | | PATHOLOGY | [address] | | | + + + + + | [facility] DEPARTMENT OF | [address] | [place] [address] | | | PATHOLOGY | [address] [...] | + + + + + | [facility] DEPARTMENT OF | [address] | [place] [address] | | | PATHOLOGY | [address] | | | + + + + + | [facility] DEPARTMENT OF | [address] | [place] [address] | | | PATHOLOGY | [address] | | | + + + + + MAGNESIUM, PLASMA (11/04/2005 6:00 PM PST) + +---------+ + + + | Component | Value | Ref Range | Performed | Pathologist | | | | | At | Signature | + +---------+ + + + | MAGNESIUM,P | 1.5 (L) | 1.8 - 2.5 mg/dL | [facility] | | | LASMA | | | [...] | + + + + + | [facility] | [address] | [place] [address] | | | PATHOLOGY | [address] | | | + + + + + | [facility] | [address] | [place] [address] | | | PATHOLOGY | [address] [...] DEPARTMENT OF | [address] | [place] [address] | | | PATHOLOGY | [address] | | | + + + + + | [facility] DEPARTMENT OF | [address] | [place] [address] | | | PATHOLOGY | [address] [...] | + + + + + | [facility] DEPARTMENT OF | [address] | [place] [address] | | | PATHOLOGY | [address] | | | + + + + + | [facility] DEPARTMENT OF | [address] | [place] [address] | | | PATHOLOGY | [address] | | | + + + + + BASIC METABOLIC SET (11/03/2005 5:30 PM PST) + +---------+ + + + | Component | Value | Ref Range | Performed | Pathologist | | | | | At | Signature | + +---------+ + + + | GLUCOSE, | 106 | 65 - 110 mg/dL | [facility] | | | PLASMA | | | [...] | + + + + + | [facility] DEPARTMENT OF | [address] | [place] [address] | | | PATHOLOGY | [address] | | | + + + + + | [facility] DEPARTMENT OF | [address] | [place] [address] | | | PATHOLOGY | [address] [...] | + + + + + | [facility] DEPARTMENT OF | [address] | [place] [address] | | | PATHOLOGY | [address] | | | + + + + + | [facility] DEPARTMENT OF | [address] | [place] [address] | | | PATHOLOGY | [address] [...] | + + + + + | [facility] | [address] | [place] [address] | | | PATHOLOGY | [address] | | | + + + + + | [facility] | [address] | [place] [address] | | | PATHOLOGY | [address] [...] | + + + + + | [facility] DEPARTMENT OF | [address] [address] | [place] [address] | | | PATHOLOGY | [address] | | | + + + + + | [place] DEPARTMENT OF | [address] | [place] [address] | | | PATHOLOGY | [address] [...] | + + + + + | [facility] DEPARTMENT OF | [address] | [place] [address] | | | PATHOLOGY | [address] | | | + + + + + | [facility] DEPARTMENT OF | [address] | [place] [address] | | | PATHOLOGY | [address] [...] + + + + | PRODUCT | [id number] | | [facility] | | | UNIT [...] DEPARTMENT OF | [address] | [place] [address] | | | PATHOLOGY | [address] | | | + + + + + | [facility] DEPARTMENT | [address] | [place] [address] | | | PATHOLOGY | [address] [...] + + + + | PRODUCT | [id number] | | [facility] | | | UNIT [...] | + + + + + | [facility] DEPARTMENT | [address] [facility] | [place] [address] | | | PATHOLOGY | [address] | | | + + + + + | [facility] DEPARTMENT OF | [address] | [place] [address] | | | PATHOLOGY | [address] [...] | + + + + + | [facility] | [address] | [place] [address] | | | PATHOLOGY | [address] | | | + + + + + | [facility] | [address] | [place] [address] | | | PATHOLOGY | [address] | | | + + + + + documented in this encounter Visit Diagnoses Not on filedocumented in this encounter"
--- OUTSIDE RECORDS SUMMARY | ~2019-11-08 | XMS | Encounter Summary ---
Demographics + + + | Address | [address] | | | [place] [address] | + + + | Home Phone | | + + + | Preferred Language | Unknown | + + + | Marital Status | | + + + | Hinduism Affiliation | Unknown | + + + | Race | Unknown | + + + | Ethnic Group | Unknown | + + + Author + + + | Author | [facility] | | | and [place] | + + + | Organization | [facility] | | | and [...] #3 | | | | | , [address] | | + + + + + Care Team Providers + +------+ + | Care City Dispatch Supervisor Name | Role | Phone | [...] + | 05/18/ | Office | [facility] | Toi Gonzalez | History of recurrent | | 2018 | Visit | [address] | MD Leighann [address] | UTIs (Primary Dx); | | | | [place], [place] | [place], [place] | History of | | | | [address] | [address] | hydronephrosis | | | | [phone] | | | +--------+---------+ + + + [...] Right Nephrectomy; Surgeon: Toi Gonzalez MD; Location: [facility] [place] [facility] [place] 2005 [facility] nicked bowel, hospitalized x3 weeks SANCHEZ [...] Disp: , Rfl: Incontinence Supplies MISC, 14 vietnamese urinary catheters. Catheterize 7 times daily. Le [...] longer present Confirmed by REMINGTON GRANT MD ([id number]) on 04/12/2018 10:25:41 AM Type and Screen Result Value Ref Range ABO A Rh Type Positive Antibody Screen Negative Lab Results Component Value Date CREA 0.69 04/12/2018 Francine Sanford NP's notes were reviewed in clinic today. Return if symptoms worsen or fail to improve.. CC: Francine Sanford NP, Karely Eustis Urologist, [place] documented in this encounter Plan of Treatment +--------+---------+ + + + | Date | Type | Specialty | Care Team | Description | +--------+---------+ + + + | 12/02/ | Office | Gastroenterology | [facility], | | | 2019 | Visit | | CRISTHIAN [address]bone [address] | | | | | | [place], [address] | | | | | | [place] | | | | | | [id number] | | | | | | | [...]
--- OUTSIDE RECORDS SUMMARY | ~2019-11-08 | XMS | Encounter Summary ---
Demographics + + + | Address | [address] | | | [place] [address] | + + + | Home Phone | | + + + | Preferred Language | Unknown | + + + | Marital Status | | + + + | Christianity Affiliation | Unknown | + + + | Race | Unknown | + + + | Ethnic Group | Unknown | + + + Author + + + | Author | [facility] | | | and [place] | + + + | Organization | [facility] | | | and [...] #3 | | | | | , [address] | | + + + + + Care Team Providers + +------+ + | Care Fish Egg Packer Name | Role | Phone | + +------+ + PCP | Unavailable | + +------+ + Encounter Details +--------+ + + + + | Date | Type | Department | Care Team | Description | +--------+ + + + + | 06/20/ | Hospital | [facility] | Arnie Toney MD | | | 2006 - | Encounter | MED CTR GENERIC IP | [address] [facility] | | | | | CONV DEPT [address] | [place], [place] | | | 06/24/ | | [place], | [address] | | | 2006 | | [place] [address] | | | | | | [phone] | | | +--------+ + + + [...] [facility], | | | 2019 | Visit | | [address]STHIAN [address]bone [address] | | | | | | [address] | | | | | | [place] | | | | | | [address] | | | | | | | | +--------+---------+ + + + documented as of this encounter Visit Diagnoses Not on filedocumented in this encounter"
--- OUTSIDE RECORDS SUMMARY | ~2019-11-08 | XMS | Encounter Summary ---
Demographics + + + | Address | [address] | | | [place] [address] | + + + | Home Phone [...] | | | | | [place] [address] | | + + + + + Care Team Providers + +------+ + | Care System Software Developer Name | Role | Phone | [...] Other (Medical | | 2008 | | [address] | MD Reinaldo | records faxed) | | | | Mailcode: CH10U | | | | | | [facility] | | | | | | and Healing, | | | | | | Building | | | | | | Floor [place], [place] | | | | | | [address] | | | | | | [phone] | | | +--------+ + + + [...]
--- OUTSIDE RECORDS SUMMARY | ~2019-11-08 | XMS | Encounter Summary ---
Demographics + + + | Address | [address] | | | [place] [address] | + + + | Home Phone [...] | | | | | [place] [address] | | + + + + + Care Team Providers + +------+ + | Care Management Consulting Name | Role | Phone | + [...] Refill Encounters | | 2009 | | [address] | MD Reinaldo | ([facility] ) | | | | Mailcode: CH10U | | | | | | [facility] | | | | | | and Healing, | | | | | | Building | | | | | | Floor [place], [place] | | | | | | [address] | | | | | | [phone] | | | +--------+ + + + [...]
--- OUTSIDE RECORDS SUMMARY | ~2019-11-08 | XMS | Encounter Summary ---
Demographics + + + | Address | [address] | | | [place] [address] | + + + | Home Phone [...] + + + | Author | [facility] | + + + | Organization | [facility] | + + + | Address | Unknown | + + + | Phone | Unavailable | + + + Support + + + + + | Name | Relationship | Address | Phone | + + + + + | Darius Fields | HELEN | [address] | | | | | [place] [address] | | + + + + + Care Team Providers + +------+ + | Care Prenatal Nurse Name | Role | Phone | [...] | | | | CT URGRAM | [place], [place] | [address] [facility] | | | | | ABD WWO | [address] [facility] | | | | | CONTRAST | | [place], [place] | | | | | | | [address] | | | | | | | Phone: | | | | | | | [phone] | | | | | | | Fax: | | | | | | | [phone] | +--------+--------+ + + + + Reason [...] | | | | | Exstrophy | Serena Wilson, | MD Reinaldo | | | | | of urinary | DEPARTURE CLERK [address] | [address] | | | | | bladder | [address] | Ave | | | | | Procedures | [place], [place] | [place], [place] | | | | | [place] INJECTION | [address] | [address] | | | | | FOR BLADDER | Phone: | | | | | | X-RAY [place] | [phone] | | | | | | X-RAY | Fax: | | | | | | CYSTOGRAM | [phone] | | | | | | cystogram [...] CH10U | | | | | | [place] for [facility] | | | | | | and Healing, | | | | | | Building 1, | | | | | | Floor [facility] [place] | | | | | | [address] | | | | | | [phone] | | | +--------+---------+ + + + [...] right collecting system on the pouchogram today. Colmean villalta has stable hydronephrosis. She insists that [...] to rule out infection/stones. Lacy Flowers M.D. frame changer Section of Urologic Oncology Division of Urology & Renal Transplantation [facility] [place] lana Thorne - 06/01/2009 5:31 PM PDT [...] | + +--------+ + + + | MA CYSTOGRAPHY, | Routin | 06/01/2009 | Renal | Results for this | | GLOBAL | e | | Insufficiency | procedure are in the | | | | | | results section. | + +--------+ + + + | MA | Routin | 06/01/2009 | Renal | [...] | + +--------+ + + + | [place] INJECTION FOR | Routin | 06/01/2009 | [...] | + + + + + | [facility] DEPARTMENT OF | [address] [facility] | [place] [address] | | | PATHOLOGY | [address] | | | + + + + + | [facility] OF | [address] [facility] | [place] [address] | | | PATHOLOGY | [address] [...] | + + + + + | [facility] | [address] [facility] | [place] [address] | | | PATHOLOGY | [address] | | | + + + + + | [facility] | [address] [facility] | [place] [address] | | | PATHOLOGY | [address] | | | + + + + + [place] INJECTION FOR BLADDER X-RAY (06/01/2009) + + [...] [facility] | [address] | [place], [place] | | | HECTOR, POINT OF CARE | [address] | [address] | | | TESTS | | | | + + + + + | [facility]-POINT OF CARE | [address] | [place], [place] | | | TESTS | [address] | [address] | | + + + + + [place] ULTRASOUND,BRADILTD,GLOBAL (06/01/2009) + + + | Narrative [...] and U/S. | | + + + [place] CYSTOGRAPHY, GLOBAL (06/01/2009) + + + | [...]
--- OUTSIDE RECORDS SUMMARY | ~2019-11-08 | XMS | Encounter Summary ---
Demographics + + + | Address | [address] | | | [place] [address] | + + + | Home Phone | | + + + | Preferred Language | Unknown | + + + | Marital Status | Single | + + + | Yarsani Affiliation | CHR | + + + [...] | | | | | [place] [address] | | + + + + + Care Team Providers + +------+ + | Care Dot Compliance Coordinator Name | Role | Phone | [...] | | | | CT URGRAM | [place], [place] | [address] [facility] | | | | | ABD WWO | [address] | Hospital | | | | | CONTRAST | | [place], [place] | | | | | | | [address] | | | | | | | Phone: | | | | | | | [phone] | | | | | | | Fax: | | | | | | | [phone] | +--------+--------+ + + + + Encounter Details +--------+ + + + + | Date | Type | Department | Care Team | Description | +--------+ + + + + | 06/29/ | Hospital | Radiology/Imaging | | | | 2008 | Encounter | Lab at [facility] [address] | | | | | | [address] Mailcode: | | | | | | CH3G [facility] | | | | | | Health and Healing, | | | | | | [place] [address], [facility] | | | | | | Floor [place], [place] | | | | | | [address] | | | | | | [phone] | | | +--------+ + + + [...] | | + +---------+ + + | [facility] DEPARTMENT OF | | | | | RADIOLOGY | | | | + +---------+ + + documented in this encounter Visit Diagnoses + + | Diagnosis | + + | Renal insufficiency Unspecified disorder of kidney and ureter | + + documented in this encounter"
--- OUTSIDE RECORDS SUMMARY | ~2019-11-08 | XMS | Encounter Summary ---
Demographics + + + | Address | [address] | | | [place] [address] | + + + | Home Phone | | + + + | Preferred Language | Unknown | + + + | Marital Status | Single | + + + | Bahai Affiliation | CHR | + + + [...] | | | | | [place] [address] | | + + + + + Care Team Providers + +------+ + | Care Transformer Stock Clerk Name | Role | Phone | [...] | Orders (Catheters | | | | [facility] | | (lifetime supply)) | | | | and Healing, | | | | | | Building 1, [address]th | | | | | | Floor [place], [place] | | | | | | [address] | | | | | | [phone] | | | +--------+ + + + [...]
--- OUTSIDE RECORDS SUMMARY | ~2019-11-08 | XMS | Encounter Summary ---
Demographics + + + | Address | [address] | | | [place] [address] | + + + | Home Phone | | + + + | Preferred Language | Unknown | + + + | Marital Status | | + + + | Latter-Day Affiliation | Unknown | + + + | Race | Unknown | + + + | Ethnic Group | Unknown | + + + Author + + + | Author | [facility] | | | and [place] | + + + | Organization | [facility] | | | and [place] | + + + | Address | Unknown | + + + | Phone | Unavailable | + + + Support + + + + + | Name | Relationship | Address | Phone | + + + + + | Darius Diamond [address] | [address] | | | | | , [address] | | + + + + + Care Team Providers + +------+ + | Care Supervisor Keymodule Assembly Name | Role | Phone | + [...] | (Primary Dx); | | | | [place], [place] | [place] | Hypertension, | | | | [address] | [address] | unspecified type | | | | [phone] | | | +--------+ + + + [...] [place] | | | | | | [address] | | | | | | | [...] MD | | | | | | ([id number]) on 02/14/2018 | | | | | [...] 17 | 7 - 18 mg/dL | [facility] | | | | | | [facility] | | | | | | MEDICAL | | | | | | CENTER - | | | | | | LABORATORY | | + + + + + + | Creatinine | 0.81 | 0.60 - 1.30 | [facility] | | | | | mg/dL | [facility] | | | | | | MEDICAL | | | | | | CENTER - | | | | | | LABORATORY | | + + + + + + | eGFR if not | >60Comment: GLOMERULAR | >=60 | [facility] | | | | FILTRATION | mL/min/1.73m2 | [facility] | | | BULGARIAN | RATE,ESTIMATED | | MEDICAL | | | | mL/min/1.54f8Pcql than | | CENTER - | | [...] + | [facility] | 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
--- OUTSIDE RECORDS SUMMARY | ~2019-11-08 | XMS | Encounter Summary ---
Demographics + + + | Address | [address] | | | [place] [address] | + + + | Home Phone | | + + + | Preferred Language | Unknown | + + + | Marital Status | Single | + + + | Uatsdin Affiliation | CHR | + + + [...] | | | | | [place] [address] | | + + + + + Care Team Providers + +------+ + | Care Virtualization Consultant Name | Role | Phone | [...] CH10U | | | | | | [facility] | | | | | | and Healing, | | | | | | | | | | | | Floor [place], [place] | | | | | | [address] | | | | | | [phone] | | | +--------+ + + + [...]
--- OUTSIDE RECORDS SUMMARY | ~2019-11-08 | XMS | Encounter Summary ---
Demographics + + + | Address | [address] | | | [place] [address] | + + + | Home Phone [...] + | Organization | [facility] | [...] #3 | | | | | , [address] | | + + + + + Care Team Providers + +------+ + | Care Desulfurizer Machine Name | Role | Phone | + [...] Greenfield RN | | | | | [place], [place] | | | | | | [address] | | | | | | [phone] | | | +--------+ + + + [...] | 12/02/ | Office | Gastroenterology | [facility], | | | 2020 | Visit | | [address]HIAN [address] | | | | | | [address] | | | | | | [place] | | | | | | [address] | | | | | | | | +--------+---------+ + + + documented as of this encounter Visit Diagnoses Not on filedocumented in this encounter"
--- OUTSIDE RECORDS SUMMARY | ~2019-11-08 | XMS | Encounter Summary ---
Demographics + + + | Address | [address] | | | [place] [address] | + + + | Home Phone [...] Organization | [facility] | | [...] #3 | | | | | , [address] | | + + + + + Care Team Providers + +------+ + | Care Networker Name | Role | Phone | + +------+ + PCP | Unavailable | + +------+ + Encounter Details +--------+ + + + + | Date | Type | Department | Care Team | Description | +--------+ + + + + | 05/06/ | Hospital | [facility] | | | | 2005 - | Encounter | MED CTR EMERGENCY | | | | | | [address] | | | | 05/07/ | | [place] | | | | 2005 | | [address] | | | | | | [phone] | | | +--------+ + + + [...] Gastroenterology | [facility], | | | 2020 | Visit | | [address]HIAN [address] | | | | | | [address] | | | | | | [place] | | | | | | [address] | | | | | | | | +--------+---------+ + + + documented as of this encounter Visit Diagnoses Not on filedocumented in this encounter"
--- OUTSIDE RECORDS SUMMARY | ~2019-11-08 | XMS | Encounter Summary ---
Demographics + + + | Address | [address] | | | [place] [address] | + + + | Home Phone | | + + + | Preferred Language | Unknown | + + + | Marital Status | | + + + | Lutheran Affiliation | Unknown | + + + | Race | Unknown | + + + | Ethnic Group | Unknown | + + + Author + + + | Author | [facility] | | | and [place] | + + + | Organization | [facility] | | | and [...] #3 | | | | | , [address] | | + + + + + Care Team Providers + +------+ + | Care Computer Tester Name | Role | Phone | + +------+ + PCP | Unavailable | + +------+ + Encounter Details +--------+ + + + + | Date | Type | Department | Care Team | Description | +--------+ + + + + | 01/04/ | Hospital | [facility] | | | | 2007 | Encounter | MED CTR EMERGENCY | | | | | | CENTER [address] | | | | | | [place] | | | | | | [address] | | | | | | [phone] | | | +--------+ + + + [...] [place] | | | | | | [address] | | | | | | | | +--------+---------+ + + + documented as of this encounter Visit Diagnoses Not on filedocumented in this encounter"
--- OUTSIDE RECORDS SUMMARY | ~2019-11-08 | XMS | Encounter Summary ---
Demographics + + + | Address | [address] | | | [place] [address] | + + + | Home Phone [...] Author | [facility] | + + + | Organization | [facility] | + + + | Address | Unknown | + + + | Phone | Unavailable | + + + Support + + + + + | Name | Relationship | Address | Phone | + + + + + | Darius Fields | HELEN | [address] | | | | | [place] [address] | | + + + + + Care Team Providers + +------+ + | Care Emergency Department Name | Role | Phone | + [...] | Artificial Opening | | | | [place] for [facility] | | of Urinary Tract; | | | | and Healing, | | Bladder Extrophy | | | | Building | | | | | | Floor [place], [place] | | | | | | [address] | | | | | | [phone] | | | +--------+ + + + [...] DEPARTMENT OF | [address] | [place] [address] | | | PATHOLOGY | [address] | | | + + + + + | [facility] | [address] | [place] [address] | | | PATHOLOGY | [address] [...]
--- OUTSIDE RECORDS SUMMARY | ~2019-11-08 | XMS | Encounter Summary ---
Demographics + + + | Address | [address] | | | [place] [address] | + + + | Home Phone | | + + + | Preferred Language | Unknown | + + + | Marital Status | | + + + | Confucianist Affiliation | Unknown | + + + | Race | Unknown | + + + | Ethnic Group | Unknown | + + + Author + + + | Author | [facility] | | | and [place] | + + + | Organization | [facility] | | [...] #3 | | | | | , [address] | | + + + + + Care Team Providers + +------+ + | Care Dairy Feed Sales Consultant Name | Role | Phone | [...] | | | | | | | LA REMV | | | | | | [...] + + | 04/09/ | Hospital | [facility] | Toi Gonzalez | Recurrent UTI; | | 2018 - | Encounter | MED CTR SURGICAL | MD Leighann [address] | 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 [facility] Urology Discharge Summary Patient Name: Samreen Zaragoza [...] might be different f rom the original. [facility] Urology Progress Note Samreen Zaragoza is now [...] Signed by: Gulshan Dumont MD, 04/13/2018 6:00 [facility]ronically signed by Gulshan Dumont MD at 04/13 [...] Signed by: Gulshan Dumont MD, 04/12/2018 10:57 [facility]ATIONElectronically signed by Gulshan Dumont MD at 04/12 [...] Signed by: Gulshan Dumont MD, 04/11/2018 12:48 [facility]ATIONElectronically signed by Gulshan Dumont MD at 04/12 7:28 PM PDTSpendToi pagan MD - 04/10/2018 8:06 AM PDTFormatting of this note rich ht be different from the original. [facility] Urology Progress Note Samreen Zaragoza is now [...] Office | Gastroenterology | [facility], | | | 2019 | Visit | | CRISTHIAN Carbone [address] | | | | | | [place], [address] | | | | | | [place] | | | | | | [address] | | | | | | | [...] mL/min/1.73m2 | [facility] | | | BULGARIAN | RATE,ESTIMATED | | MEDICAL | | | | mL/min/1.65s7Wxll than | | CENTER - | | [...] [address] | [place] | [phone] | | [facility] | | [address] | | | - LABORATORY | | [...] [address] | [place] | [phone] | | [facility] | | [address] | | | - LABORATORY | | [...] | | | | REMINGTON GRANT MD ([id number]) | | | | | | on [...] | | | | g/dL | [address] | | | | | | MEDICAL [...] | Basophils | | K/uL | [facility] | | | | [...] [address] | [place] | [phone] | | [facility] | | [address] | | | - LABORATORY | | [...] 15 | 7 - 18 mg/dL | [facility] | | | | | | [facility] | | | | | | MEDICAL | | | | | | CENTER - | | | | | | LABORATORY | | + + + + + + | Creatinine | 0.86 | 0.60 - 1.30 | [facility] | | | | | mg/dL | [facility] | | | | | | MEDICAL | | | | | | CENTER - | | | | | | LABORATORY | | + + + + + + | eGFR if not | >60Comment: GLOMERULAR | >=60 | [facility] | | | | FILTRATION | mL/min/1.73m2 | [facility] | | | BULGARIAN | RATE,ESTIMATED | | MEDICAL | | | | mL/min/1.21k9Gbch than | | CENTER - | | [...] + | [facility] | [address] | [place] | [phone] | | [facility] | | [address] | | | - LABORATORY | | [...] [address] | [place] | [phone] | | [facility] | | [address] | | | - LABORATORY | | [...] + | [facility] | [address] | [place], [place] | | | [facility] | | [address] | | | - BLOOD BANK | | | | + + + + + Surgical Pathology Exam (04/09/2018 12:00 AM PDT) + + | Specimen | + + | | + + + + + | Narrative | Performed At | + + + | SPECIMEN(S): A RIGHT KIDNEY SPECIMEN SOURCE: A. RIGHT KIDNEY | [facility] | | CLINICAL HISTORY: N26.1 (Atrophy [...] dilated. The central collecting system is dilated. Decal Applier | | | sections are submitted in eight cassettes. 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 | | | These findings, together with the gross examination, support the | | | pathologic diagnosis. PERFORMING LABORATORY: Tissue processing | | | and slide preparation were performed by [employer], [address] | | [facility] [address], [place] [address] (Reservoir Caretaker: Remington | | | Dina Lazcano; CLIA#: [id number]). Professional interpretation was | | | performed by [employer], [facility] | | | Branch, [address] [facility] [place] [address] (Reservoir Caretaker: | | | Remington Lazcano M.D.; [facility]#: [id number]). Diagnostician: Remington Smith | | Cole Lazcano [...] PDT | | | | | Starting [facility] 04/09/18 at 1700, | | | | [...] | | | | | ineffective use [place] 10/325 if | | | | | [...] | | | | | Pain, Starting [facility] 04/09/18 at | | | | | [...] PDT | | | | | Starting [facility] 04/09/18 at 1424, For | | | [...] | | | | | Oral, ONCE, [facility] 04/09/18 at 0830, | | AM PDT [...] PDT | | | | | Starting [facility] 04/09/18 at 1636, For | | | [...]
[~2019-11-08 05:39] MED LIST changes: +DILT-XR120 MG PO
[2019-11-08] MEDS ORDERED: ZESTRIL10 MG PO (05:58)
[2019-11-08] MEDS ORDERED: LEVAQUIN750 MG PO (09:30)
[2019-11-08] MEDS ORDERED: NORCO 5-325 TA1 EACH PO (09:30)
[2019-11-08] MEDS ORDERED: ZOFRAN4 MG PO (09:30)
== END 2019-11-08 09:45 | disposition home or self-care (01) ==
LOC: ED 05:39
DX: K91.850 Pouchitis (principal); D72.829 Elevated white blood cell count, unspecified; R10.84 Generalized abdominal pain; J45.909 Unspecified asthma, uncomplicated; Z87.891 Personal history of nicotine dependence; Z88.6 Allergy status to analgesic agent; Z91.09 Other allergy status, other than to drugs and biological substances; Z88.7 Allergy status to serum and vaccine; Z91.040 Latex allergy status; Z88.0 Allergy status to penicillin; Z88.5 Allergy status to narcotic agent; Z79.899 Other long term (current) drug therapy; Z79.51 Long term (current) use of inhaled steroids
CPT/HCPCS: 74176; 80053; 81001; 85025; 96361; 96374; 96375; 96376; 99284-25; J1170; J2405; J7030

== ENCOUNTER 2021-04-20 08:22 | Emergency (ER) | payer MEDICARE, OTHER ==
[~2021-04-20] VITALS: Ht 162.6 cm; Wt 81.7 kg
[~2021-04-20 08:22] MED LIST changes: +LEVAQUIN750 MG PO; +ZESTRIL10 MG PO; +ZOFRAN4 MG PO
[2021-04-20] MEDS ORDERED: FAMOTIDINE20 MG PO (08:45)
[2021-04-20] MEDS ORDERED: ROSUVASTATIN CA20 MG PO (08:45)
[2021-04-20] MEDS ORDERED: HYDROCODON-ACE1 EA10 PO (10:43)
[2021-04-20] MEDS ORDERED: GABAPENTIN300 MG PO (10:43)
== END 2021-04-20 10:47 | disposition home or self-care (01) ==
LOC: ED 08:22
DX: M54.42 Lumbago with sciatica, left side (principal); J45.909 Unspecified asthma, uncomplicated; Z87.891 Personal history of nicotine dependence; Z88.6 Allergy status to analgesic agent; Z88.8 Allergy status to other drugs, medicaments and biological substances; Z88.7 Allergy status to serum and vaccine; Z88.0 Allergy status to penicillin; Z88.5 Allergy status to narcotic agent; Z79.899 Other long term (current) drug therapy
CPT/HCPCS: 72110; 73502; 99283-25; A9270

== ENCOUNTER 2022-12-01 09:09 | Emergency (ER) | payer MEDICARE, OTHER ==
[~2022-12-01] VITALS: Ht 162.6 cm; Wt 81.7 kg
[~2022-12-01 09:09] MED LIST changes: +FAMOTIDINE20 MG PO; +GABAPENTIN300 MG PO; +HYDROCODON-ACE1 EA10 PO; +ROSUVASTATIN CA20 MG PO
[2022-12-01] MEDS ORDERED: IPRAT-ALBUT 0.5-3 ML INH (10:24)
[2022-12-01] MEDS ORDERED: PREDNISONE20 MG PO (10:24)
== END 2022-12-01 10:37 | disposition home or self-care (01) ==
LOC: ED 09:09
DX: J45.901 Unspecified asthma with (acute) exacerbation (principal); Z87.891 Personal history of nicotine dependence; Z88.6 Allergy status to analgesic agent; Z91.041 Radiographic dye allergy status; Z88.7 Allergy status to serum and vaccine; Z91.040 Latex allergy status; Z88.0 Allergy status to penicillin; Z88.5 Allergy status to narcotic agent; Z79.899 Other long term (current) drug therapy
CPT/HCPCS: 36415; 71045; 80053; 85025; 94640; 96374; 99285-25; A9270; J2930

== ENCOUNTER 2023-07-19 08:32 | Emergency (ER) | payer MEDICARE, OTHER ==
[~2023-07-19] VITALS: Ht 162.6 cm; Wt 94.1 kg
--- OUTSIDE RECORDS SUMMARY | ~2023-07-19 | XMS | Continuity of Care Document ---
Demographics + + + | Address | [address] | | | [place] [address] | + + + | Preferred Language | Unknown | + + + | Marital Status | Legally | + + + | Latter Day Affiliation | Unknown | + + + | Race | White | + + + | Ethnic Group | Not or | + + + Author + + + | Author | [facility] | + + + | Organization | [facility] | + + + | Address | [address] | | | [place], [place] [address] | + + + | Phone | | + + + Care Team Providers + + + + | Care Technical Service Engineer Name | Role | Phone | + + + + Unavailable | Unavailable | + + + + Allergies No information. Encounters No information. Functional Status No information. Immunizations No information. Medications No information. Problems + + + + | date | description | facility | + + + + | 2023-04-22 12:38 | NICOTINE DEPENDENCE, | [facility] | | | UNSPECIFIED, UNCOMPLICATED | | + + + + | 2023-04-22 12:38 | UNSPECIFIED ASTHMA WITH | [facility] | | | (ACUTE) EXACERBATION | | + + + + | 2023-04-22 12:38 | SHORTNESS OF BREATH | [facility] | + + + + | 2023-04-22 12:38 | OTHER PARKING ENFORCER (CURRENT) | [facility] | | | DRUG THERAPY | | + + + + | 2023-04-22 12:38 | ALLERGY STATUS TO | [facility] | | | PENICILLIN | | + + + + | 2023-04-22 12:38 | ALLERGY STATUS TO NARCOTIC | [facility] | | | AGENT STATUS | | + + + + | 2023-04-22 12:38 | ALLERGY STATUS TO | [facility] | | | ANALGESIC AGENT STATUS | | + + + + | 2023-04-22 12:38 | ALLERGY STATUS TO SERUM | [facility] | | | AND VACCINE STATUS | | + + + + | 2023-04-22 12:38 | ALLERGY STATUS TO OTH | [facility] | | | DRUG/MEDS/BIOL SUBST STATUS | | | | | | + + + + | 2023-04-22 12:38 | LATEX ALLERGY STATUS | [facility] | + + + + | 2023-07-02 14:03 | MODERATE PERSISTENT ASTHMA | [facility] | | | WITH (ACUTE) EXACERBATION | | + + + + | 2023-07-22 10:00 | RENAL AGENESIS, UNILATERAL | [facility] | | | | | + + + + | 2023-07-22 10:00 | EXSTROPHY OF URINARY | [facility] | | | BLADDER, UNSPECIFIE | | + + + + Procedures No information. Results/Labs No information. Social History +--------+ + + | date | description | facility | +--------+ + + Vital Signs No information."
[~2023-07-19 08:32] MED LIST changes: +AZELASTINE HCL6 ML OPTH; +INCRUSE ELLI62.5 MCG; +IPRAT-ALBUT 0.5-3 ML INH; +LORATADINE10 MG PO; +PREDNISONE20 MG PO; +SEREVENT DISKU50 MCG
[2023-07-19 09:14] LABS: BASOPHILS 0.7 % (0-2); EOSINOPHILS 3.7 % (0-6); HEMATOCRIT 38.8 % (35.0-50.0); MCH 30.2 (27-36); MCHC 33.7 g/dl (30-36); MCV 89.6 fl (81-99); MONOCYTES 5.2 % (0-12); NEUTROPHILS 74.4 % (39-80); PLATELET COUNT 262 K/uL (140-440); RBC 4.32 M/ul (4.3-5.7); RDW 14.8 (10.5-15.0)
[2023-07-19 09:32] LABS: ALBUMIN 3.3 g/dL (3.4-5.0); ALBUMIN/GLOBULIN RATIO 0.97 (1.1-2.4); ANION GAP 12.5 (7-21); BILIRUBIN, TOTAL 0.3 ng/dL (0.2-1.0); BUN/CREATININE RATIO 10.81 (6.0-28.6); CREATININE, SERUM 1.11 mg/dL (0.55-1.02); POTASSIUM 3.5 mmol/L (3.5-5.1); PROTEIN, TOTAL 6.7 g/dL (6.4-8.2)
[2023-07-19 13:32] LABS: INFLUENZA B NAA NEGATIVE (NEGATIVE); RESPIRATORY SYNCYTIAL VIR NAA NEGATIVE (NEGATIVE)
[2023-07-19 15:40] VITALS: BP 152/76
--- NOTE | 2023-07-20 22:02 | EKG ---
[facility] [address] [place] [address] Signed Sinus tachycardia Nonspecific T wave abnormality Abnormal ECG When compared with ECG of 22-APR-2023 13:50, Nonspecific T wave abnormality now evident in Lateral leads Confirmed by KRISTINE MUSE MD ([id number]) on 07/20/2023 10:02:26 PM Electronically Signed By: KRISTINE MUSE 07/20/232201 PATIENT NAME: MATI SALGUERO Electrocardiogram DATE OF : 67 PHYSICIAN: KRISTINE MUSE REPORT #: [id number] REPORT IS CONFIDENTIAL AND NOT TO BE RELEASED WITHOUT AUTHORIZATION
== END 2023-07-19 15:48 | disposition short-term general hospital (02) ==
LOC: ED 08:32
PROVIDERS: Internal Medicine
DX: I21.4 Non-ST elevation (NSTEMI) myocardial infarction (principal); J44.1 Chronic obstructive pulmonary disease with (acute) exacerbation; Z87.891 Personal history of nicotine dependence; Z88.6 Allergy status to analgesic agent; Z91.041 Radiographic dye allergy status; Z88.0 Allergy status to penicillin; Z88.7 Allergy status to serum and vaccine; Z91.040 Latex allergy status; Z79.52 Long term (current) use of systemic steroids; Z79.51 Long term (current) use of inhaled steroids; Z79.899 Other long term (current) drug therapy
CPT/HCPCS: 36415; 71045; 80053; 84484; 85025; 87502; 93005; 93010; 94644; C9803; J2930; U0002

== ENCOUNTER 2023-09-11 16:31 | Emergency (ER) | payer MEDICARE, OTHER ==
[~2023-09-11] VITALS: Ht 162.6 cm; Wt 99.3 kg
[2023-09-11 17:24] LABS: BASOPHILS 0.8 % (0-2); EOSINOPHILS 9.4 % (0-6); HEMATOCRIT 41.2 % (35.0-50.0); HEMOGLOBIN 13.8 g/dL (12.0-18.0); LYMPHOCYTES 30.4 % (24-44); MCH 30.6 (27-36); MCHC 33.5 g/dl (30-36); MCV 91.1 fl (81-99); MONOCYTES 7.7 % (0-12); NEUTROPHILS 51.7 % (39-80); PLATELET COUNT 288 K/uL (140-440); RBC 4.52 M/ul (4.3-5.7)
[2023-09-11 17:35] LABS: ALBUMIN 3.8 g/dL (3.4-5.0); ALBUMIN/GLOBULIN RATIO 1.15 (1.1-2.4); ANION GAP 13.9 (7-21); BILIRUBIN, TOTAL 0.3 ng/dL (0.2-1.0); BUN/CREATININE RATIO 15.04 (6.0-28.6); CALCIUM 9.3 mg/dL (8.5-10.1); CREATININE, SERUM 1.13 mg/dL (0.55-1.02); MAGNESIUM 1.7 mg/dL (1.8-2.4); POTASSIUM 3.9 mmol/L (3.5-5.1); PROTEIN, TOTAL 7.1 g/dL (6.4-8.2)
[2023-09-11 18:05] LABS: INFLUENZA B NAA NEGATIVE (NEGATIVE); RESPIRATORY SYNCYTIAL VIR NAA NEGATIVE (NEGATIVE)
[2023-09-11 18:38] VITALS: BP 127/78
--- NOTE | 2023-09-11 23:09 | EKG ---
[facility] [address] [place] [address] Signed Sinus tachycardia Otherwise normal ECG When compared with ECG of 19-JUL-2023 08:59, No significant change was found Confirmed by Vale Borges MD () on 09/11/2023 11:09:24 PM Electronically Signed By: VALE BORGES MD 09/11/23 2309 PATIENT NAME: MATI SALGUERO Electrocardiogram DATE OF : 67 PHYSICIAN: VALE BORGES MD REPORT #: [id number] REPORT IS CONFIDENTIAL AND NOT TO BE RELEASED WITHOUT AUTHORIZATION
== END 2023-09-11 18:39 | disposition home or self-care (01) ==
LOC: ED 16:31
PROVIDERS: Emergency Medicine
DX: R07.89 Other chest pain (principal); J45.909 Unspecified asthma, uncomplicated; I10 Essential (primary) hypertension; Z87.891 Personal history of nicotine dependence; Z88.8 Allergy status to other drugs, medicaments and biological substances; Z88.5 Allergy status to narcotic agent; Z88.0 Allergy status to penicillin; Z88.7 Allergy status to serum and vaccine; Z88.6 Allergy status to analgesic agent; Z91.040 Latex allergy status; Z79.899 Other long term (current) drug therapy; Z79.52 Long term (current) use of systemic steroids; Z20.822 Contact with and (suspected) exposure to COVID-19
CPT/HCPCS: 36415; 71045; 80053; 83735; 83880; 84484; 85025; 85379; 87502; 93005; 93010; 99285-25; C9803; U0002

== ENCOUNTER 2025-03-04 22:58 | Emergency (ER) | payer MEDICARE, OTHER ==
[~2025-03-04] VITALS: Ht 162.6 cm; Wt 94.0 kg
[~2025-03-04 22:58] MED LIST changes: +ASHWAGANDHA300 MG PO; +CANDICIDAL CAP1 EACH PO; +CLARITIN10 M2 PO; +FUROSEMIDE20 MG PO; +LISINOPRIL20 MG PO; +METOPROLOL SUCC25 MG PO; +POTASSIUM CHLO10 ME1 PO; +ROPINIROLE HCL0.5 MG PO; +VITAMIN D-40010 MCG PO
[2025-03-04] MEDS ORDERED: ALBUTEROL/IPRATROPIUM 3 ML NEB ONE (23:09)
[2025-03-04] MEDS ORDERED: ALBUTEROL/IPRATROPIUM 3 ML NEB INH ONE (23:30)
[2025-03-05] MEDS ORDERED: ALBUTEROL/IPRATROPIUM 3 ML NEB INH ONE (00:30)
[2025-03-05] MEDS ORDERED: methylPREDNISolone SOD SUCC 125 MG/2 ML VIAL IV ONE (00:30)
[2025-03-05 01:05] LABS: BASOPHILS 0.5 % (0-2); EOSINOPHILS 4.4 % (0-6); HEMATOCRIT 38.8 % (35.0-50.0); HEMOGLOBIN 13.6 g/dL (12.0-18.0); LYMPHOCYTES 17.5 % (24-44); MCH 32.1 (27-36); MCHC 35.1 g/dl (30-36); MCV 91.4 fl (81-99); NEUTROPHILS 71.6 % (39-80); PLATELET COUNT 289 K/uL (140-440); RBC 4.25 M/ul (4.3-5.7); RDW 13.5 (10.5-15.0)
[2025-03-05 01:31] LABS: ALBUMIN 3.5 g/dL (3.4-5.0); ANION GAP 12.9 (7-21); BILIRUBIN, TOTAL 0.4 mg/dL (0.2-1.0); CALCIUM 8.8 mg/dL (8.5-10.1); CREATININE, SERUM 1.3 mg/dL (0.55-1.02); POTASSIUM 3.9 mmol/L (3.5-5.1)
[2025-03-05] MEDS ORDERED: FUROSEMIDE 40 MG/4 ML VIAL IV ONE (02:00)
[2025-03-05 04:25] VITALS: BP 138/88
--- NOTE | 2025-03-06 20:45 | EKG ---
[facility] [address] [facility] [facility] [address] [facility] [place] [address] Signed Sinus tachycardia Nonspecific T wave abnormality Abnormal ECG When compared with ECG of 22-FEB-2024 20:40, Nonspecific T wave abnormality now evident in Lateral leads Confirmed by Vale Borges MD () on 03/06/2025 8:44:51 PM Electronically Signed By: VALE BORGES MD 03/06/252044 PATIENT NAME: MATI SALGUERO Electrocardiogram DATE OF : 67 PHYSICIAN: VALE BORGES MD REPORT #: [id number] REPORT IS CONFIDENTIAL AND NOT TO BE RELEASED WITHOUT AUTHORIZATION
== END 2025-03-05 04:20 | disposition home or self-care (01) ==
LOC: ED 22:58
PROVIDERS: Internal Medicine
DX: I50.9 Heart failure, unspecified (principal); I10 Essential (primary) hypertension; Z87.891 Personal history of nicotine dependence; Z88.0 Allergy status to penicillin; Z88.7 Allergy status to serum and vaccine; Z91.040 Latex allergy status; Z88.5 Allergy status to narcotic agent
CPT/HCPCS: 36415; 71045; 80053; 83880; 84484; 85025; 85379; 93005; 93010; 94640; 96374; 96375; 99285-25; J1938; J2919